=== PATIENT | male | born 1950 | race Caucasian/White ===

== ENCOUNTER 2020-03-25 11:17 | Outpatient (CLI) | payer MEDICARE, SELFPAY ==
[2020-03-25 11:41] LABS: Basophils Absolute Auto 0.1 K/mm3 (0.0-0.1); Basophils Percent Auto 1.4 % (0.2-1.2); Eosinophils Absolute Auto 0.4 K/mm3 (0-0.3); Eosinophils Percent Auto 8.9 % (0-4.4); Hematocrit 43.7 % (42.0-52.0); Hemoglobin 14.6 g/dL (14.0-18.0); Immature Granulocyte Absolute 0.02 K/mm3 (0.00-0.031); Immature Granulocyte Percent A 0.4 % (0-0.5); Lymphocytes Absolute Auto 1.96 K/mm3 (0.9-3.2); Lymphocytes Percent Auto 39.8 % (18.3-44.2); Mean Corpuscular HGB Conc 33.4 g/dl (32-36); Mean Corpuscular Volume 98.6 fl (80-100); Mean Platelet Volume 10.2 fl (7.4-10.4); Monocytes Absolute Auto 0.5 K/mm3 (0.1-0.6); Neutrophils Absolute Auto 1.9 K/mm3 (1.3-6.7); Neutrophils Percent Auto 38.5 % (45.5-73.1); Platelet Count Result 342 k/mm3 (150-375); Red Blood Count 4.43 M/mm3 (4.6-6.20); Red Cell Distribution Width 12.7 % (11.5-14.5); White Blood Count 4.9 K/mm3 (4.5-10.0)
[2020-03-25 12:39] LABS: Alanine Aminotransferase 28 U/L (4-50); Alkaline Phosphatase 57 U/L (38-126); Anion Gap 7 mmol/L (8-16); Aspartate Amino Transferase 34 U/L (17-59); Bilirubin,Total 0.4 mg/dL (0.2-1.3); Blood Urea Nitrogen 14 mg/dL (9-20); Calcium 9.9 mg/dL (8.4-10.2); Carbon Dioxide 30 mmol/L (22-30); Chloride 103 mmol/L (98-107); Estimated Glomerular Filt Rate 60; Glucose 119 mg/dL (75-110); Potassium 4.3 mmol/L (3.4-5.0); Sodium 140 mmol/L (137-145)
== END 2020-03-25 11:18 | disposition home or self-care (01) ==
PROVIDERS: PCP Family Medicine; Visit Provider Nurse Practitioner Family
DX: I10 Essential (primary) hypertension (principal); E78.2 Mixed hyperlipidemia
CPT/HCPCS: 36415; 80053; 85025

== ENCOUNTER 2020-06-24 10:08 | Outpatient (CLI) | payer MEDICARE, SELFPAY ==
--- NOTE | 2020-06-24 10:41 | ECG_ITS ---
Measurements Intervals [place] Rate: 70 P: 69 SC: 189 QRS: 82 QRSD: 93 T: 50 QT: 388 QTc: 419 Interpretive Statements SINUS RHYTHM BASELINE WANDER- AVF, V3 NORMAL ECG Electronically Signed On 06-24-2020 10:57:52 OPHTHALMIC TECHNOLOGIST by Shamar Freire D.O.
[2020-06-24 10:49] LABS: INR 2.2; Prothrombin Time 24.9 Seconds (11.1-14.7)
[2020-06-24 11:04] LABS: Anion Gap 5 mmol/L (8-16); Blood Urea Nitrogen 16 mg/dL (9-20); Calcium 9.7 mg/dL (8.4-10.2); Carbon Dioxide 34 mmol/L (22-30); Chloride 103 mmol/L (98-107); Estimated Glomerular Filt Rate 60; Glucose 136 mg/dL (75-110); Potassium 4.3 mmol/L (3.4-5.0); Sodium 142 mmol/L (137-145)
== END 2020-06-24 10:09 | disposition home or self-care (01) ==
PROVIDERS: PCP Family Medicine; Visit Provider Nurse Practitioner Family
DX: R07.9 Chest pain, unspecified (principal); Z79.01 Long term (current) use of anticoagulants
CPT/HCPCS: 36415; 80048; 85610; 93005

== ENCOUNTER 2020-07-26 08:00 | Outpatient (CLI) | payer MEDICARE, SELFPAY ==
--- NOTE | 2020-07-26 08:28 | EST_ITS ---
Patient Info Name: Roscoe Pérez Age: 70 years : 1950 Gender: Male Ht: 73 in Wt: 245 lbs BSA: 2.42 m2 Exam Date: 07/26/2020 8:34 AM Exam Location: [facility] Stress Patient Status: Outpatient Admit Date: 07/26/2020 Staff Ordering Physician: Laxmi Anne NP Attending Provider: Laxmi nAne NP Exercise Technologist: Carri Sequeira RDCS Exercise Physician: Shamar Freire DO Exam Type: CA stress test treadmill Study Info Indications R07.9 - Chest pain, unspecified A exercise treadmill stress test was performed. Summary 1. 1. Negative Mark exercise stress test for ischemic ST changes by ECG criteria. 2. 2. Reduced functional capacity, achieving 6 METs of workload. 3. 3. Baseline hypertension with hypertensive response to exercise. 4. 4. Appropriate HR response to exercise. 5. 5. Appropriate HR recovery at 1 minute post exercise. 6. 6. No imaging with stress testing. 7. 7. Patient informed of the above results. Protocol: Mark Stress ECG Details Stage: REST Duration (min): 8 min : 34 sec Speed (mph): 0.0 Grade (%): 0 HR (bpm): 74 SBP (mmHg): 157 DBP (mmHg): 72 METS: --- Stage: REST Duration (min): 13 min : 49 sec Speed (mph): 0.0 Grade (%): 0 HR (bpm): 77 SBP (mmHg): 157 DBP (mmHg): 72 METS: --- Stage: STAGE 1 Duration (min): 1 min : 0 sec Speed (mph): 1.7 Grade (%): 10 HR (bpm): 103 SBP (mmHg): 157 DBP (mmHg): 72 METS: --- Stage: STAGE 1 Duration (min): 2 min : 0 sec Speed (mph): 1.7 Grade (%): 10 HR (bpm): 112 SBP (mmHg): 157 DBP (mmHg): 72 METS: --- Stage: STAGE 1 Duration (min): 3 min : 0 sec Speed (mph): 1.7 Grade (%): 10 HR (bpm): 119 SBP (mmHg): 188 DBP (mmHg): 70 METS: --- Stage: STAGE 2 Duration (min): 1 min : 0 sec Speed (mph): 2.5 Grade (%): 12 HR (bpm): 131 SBP (mmHg): 188 DBP (mmHg): 70 METS: --- Stage: STAGE 2 Duration (min): 1 min : 0 sec Speed (mph): 2.5 Grade (%): 12 HR (bpm): 131 SBP (mmHg): 188 DBP (mmHg): 70 METS: --- Stage: RECOVERY Duration (min): 0 min : 59 sec Speed (mph): 0.0 Grade (%): 0 HR (bpm): 117 SBP (mmHg): 229 DBP (mmHg): 75 METS: --- Stage: RECOVERY Duration (min): 1 min : 59 sec Speed (mph): 0.0 Grade (%): 0 HR (bpm): 92 SBP (mmHg): 229 DBP (mmHg): 75 METS: --- Stage: RECOVERY Duration (min): 2 min : 59 sec Speed (mph): 0.0 Grade (%): 0 HR (bpm): 79 SBP (mmHg): 209 DBP (mmHg): 75 METS: --- Stage: RECOVERY Duration (min): 3 min : 59 sec Speed (mph): 0.0 Grade (%): 0 HR (bpm): 87 SBP (mmHg): 209 DBP (mmHg): 75 METS: --- Stage: RECOVERY Duration (min): 4 min : 59 sec Speed (mph): 0.0 Grade (%): 0 HR (bpm): 80 SBP (mmHg): 209 DBP (mmHg): 75 METS: ---
--- NOTE | 2020-07-26 08:28 | ECHO_ITS ---
Patient Info Name: Roscoe Pérez Age: 70 years : 1950 Gender: Male Ht: 73 in Wt: 245 lbs BSA: 2.42 m2 HR: 82 bpm BP: 157 / 88 mmHg Heart Rhythm: Sinus Rhythm Exam Date: 07/26/2020 9:17 AM Exam Location: [facility] Pulmonary Patient Status: Outpatient Admit Date: 07/26/2020 Staff Ordering Physician: Laxmi Anne NP Devops Engineer: Rose Molina RDCS Attending Provider: Laxmi Anne NP Referring Physician: Omid PARSONS; Exam Type: CA echo doppler color flow Study Info Indications R07.9 - Chest pain, unspecified Complete two-dimensional, color flow and Doppler transthoracic echocardiogram is performed. Summary 1. Complete two-dimensional, color flow and Doppler transthoracic echocardiogram is performed. 2. Left ventricular chamber dimension is normal. 3. Left ventricular systolic function is normal, estimated at 55-60%. 4. There is mildly increased left ventricular wall thickness. 5. The left ventricular diastolic function is grade I diastolic dysfunction. 6. E/e' 15 is elevated. 7. There is mild aortic valve sclerosis. 8. There is trace mitral valve regurgitation. Left Ventricle E/e' 15 is elevated. Left ventricular chamber dimension is normal. Left ventricular systolic function is normal, estimated at 55-60%. There is mildly increased left ventricular wall thickness. The left ventricular diastolic function is grade I diastolic dysfunction. Right Ventricle Right ventricular chamber dimension is normal. Right ventricular systolic function is normal. Left Atria Left atrial chamber dimension is normal. Right Atria Right atrial chamber dimension is normal. Aortic Valve The aortic valve is trileaflet. There is mild aortic valve sclerosis. There is no aortic valve stenosis. There is no aortic valve regurgitation. Pulmonic Valve There is no pulmonic regurgitation. Mitral Valve There is no mitral valve stenosis. There is trace mitral valve regurgitation. Tricuspid Valve There is no tricuspid valve regurgitation. Pericardium/Pleural There is no pericardial effusion. Inferior Vena Cava Normal inferior vena cava with >50% collapse upon inspiration consistent with normal right atrial pressure, 5 mmHg. Aorta The aortic root size at the sinus of Valsalva is normal. Left Ventricular Outflow Tract Name Value Normal LVOT 2D LVOT Diameter 2.1 cm LVOT Doppler LVOT Peak Gradient 2 mmHg LVOT Mean Gradient 1 mmHg LVOT VTI 17 cm LVOT VTI/AV VTI Ratio 0.6 LVOT Stroke Volume 60 ml LVOT CO 10.9 l/min LVOT CI 4.5 l/min/m2 Pulmonic Valve Name Value Normal RVOT Doppler RVOT Peak Gradient
--- NOTE | 2020-07-30 15:12 | WPDHOLTEREM ---
Holter/Event Monitor Holter/Event Monitor Date of procedure: 07/26/20 Procedure Type: 24 hour holter monitor Indications: Chest pain Conclusion: 1. 24 hour holter monitor on 07/26/20. 2. Underlying rhythm is sinus rhythm. HR range 61-115 bpm; average HR 82 bpm. 3. There are 26 premature supraventricular complexes. No supraventricular tachycardia. 4. There are 490 premature ventricular complexes. No ventricular tachycardia. 5. No sinoatrial or atrioventricular blocks. No significant pauses greater than 2 seconds. 6. No symptoms available for correlation.
== END 2020-07-26 08:01 | disposition home or self-care (01) ==
LOC: ANHCARD 08:04
PROVIDERS: PCP Family Medicine; Visit Provider Nurse Practitioner Family
DX: E11.9 Type 2 diabetes mellitus without complications (principal); G47.33 Obstructive sleep apnea (adult) (pediatric); I65.22 Occlusion and stenosis of left carotid artery; R07.9 Chest pain, unspecified; R42 Dizziness and giddiness
CPT/HCPCS: 93017; 93225; 93226; 93306

== ENCOUNTER 2020-09-16 09:17 | Outpatient (CLI) | payer MEDICARE, SELFPAY ==
[2020-09-16 10:03] LABS: Cholesterol 135 mg/dL (0-200); HDL Direct 50 mg/dL; Triglycerides 181 mg/dL (<150)
[2020-09-16 10:14] LABS: LDL Cholesterol Direct 59 mg/dL
== END 2020-09-16 09:18 | disposition home or self-care (01) ==
PROVIDERS: PCP Family Medicine; Visit Provider Internal Medicine Cardiovascular Disease
DX: E78.2 Mixed hyperlipidemia (principal)
CPT/HCPCS: 36415; 80061

== ENCOUNTER → 2020-09-30 01:21 | Outpatient (CLI) | payer MEDICARE, SELFPAY ==
[2020-09-30 18:48] LABS: SARS-CoV-2 RNA PCR Negative
== END ==
PROVIDERS: PCP Family Medicine; Visit Provider Internal Medicine Critical Care Medicine
DX: Z01.812 Encounter for preprocedural laboratory examination (principal); Z20.822 Contact with and (suspected) exposure to COVID-19
CPT/HCPCS: C9803; U0003; U0005

== ENCOUNTER 2020-10-02 08:08 | Outpatient (CLI) | payer MEDICARE, SELFPAY ==
--- NOTE | 2020-10-16 11:55 | WPDSLEEPSTUD ---
Sleep Study Date of Study: 10/02/20 Ordering Provider: Larry Morel MD Interpreting Physician: Tessa Fuchs MD Sleep Study Type: Polysomnogram Height: 1.85 m Weight: 109.769 kg Body Mass Index: 31.9 Neck Circumference (inches): 19 [place]: 7 Reason for Sleep Study Obstructive sleep apnea; his eye surgeon recommended possible adjustment to his CPAP The exact issue is not known Sleep History Roscoe proctor is a 70-year-old man currently using CPAP. This will be is 3rd sleep study and 16 years. His last study was at [facility]. He returns for further evaluation. He occasionally awakens from sleep feeling short of breath. He does not awaken at night with heartburn, belching or coughing. He constantly snores and it is constantly loud enough for others to complain, only when he is not using CPAP. He does not have trouble sleep with a cold. He does not wake up gasping for breath at night. He occasionally has breathing problems at night observed by others. He frequently sweats excessively at night. He rarely notices his heart beating or pounding irregularly night. He frequently falls asleep during the day, never involuntarily, and he never falls asleep while driving. He does not have loss of muscle tone with strong emotion. He does not have daytime difficulties due to excessive sleepiness. 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 He does not feel paralyzed on waking or falling asleep. He occasionally has vivid dreamlike scenes upon awakening or falling asleep. He never has nightmares. He occasionally remembers his dreams and occasionally has racing thoughts. He does not feel sad or depressed. He does not have anxiety. He does not have muscular tension or notice parts of his body jerking. He does not kick at night. He frequently has crawling and aching feelings in his legs and frequently has leg pain at night. He does not have morning jaw pain and does not grind his teeth during sleep. He is not awakened by pain during the night. He constantly wakes up feeling stiff in the morning. He frequently wakes up with sore or achy muscles and pain in the neck and spine. He has fatigue and sexual problems. Normal bedtime is 9:00 p.m. taking 10-15 minutes to fall asleep, typically waking 3 4 times at night for less than 5 minutes to urinate. These awakenings occur in the middle of the night and in the machine plug shaper hours. His wake time is 5:30 a.m.. He keeps the same schedule on weekends. He estimates getting 6-8 hours of sleep at night. He takes naps in the day. A short nap can be refreshing. Most of the time he feels good in the morning. Habits: (+) tobacco. No caffeine. Alcohol on weekends 3-4 drinks. No recreational drugs. [facility] Past Medical History Medical History (Updated 10/16/20 @ 12:21 by Tessa Fuchs MD) BMI 31.0-31.9,adult BMI 32.0-32.9,adult Essential hypertension Fever Gastroesophageal reflux disease without esophagitis History of DVT in adulthood Hyperlipidemia Hypothyroidism Left carotid artery occlusion Nephrolithiasis Obstructive sleep apnea Type 2 diabetes mellitus without complication, without long-term current use of insulin Surgical History Surgical History (Updated 10/16/20 @ 12:22 by Tessa Fuchs MD) Status post hip replacement Left side Status post placement of ureteral stent Right side Family History Family History Sibling No problems noted. Father Cancer Mother No problems noted. Sibling No problems noted. Other Diabetes mellitus Social History Social History Tobacco type: cigarettes Alcohol intake: current Substance use: never Substance use type: does not use Additional occupation/education comments: [employer]. Gender identity (if verbalized by the patient): Male
[2020-10-16 12:27] VITALS: BMI 31.9
== END 2020-10-03 05:53 | disposition home or self-care (01) ==
LOC: ANHCSM 08:09
PROVIDERS: PCP Family Medicine; Visit Provider Family Medicine
DX: G47.33 Obstructive sleep apnea (adult) (pediatric) (principal)
CPT/HCPCS: 95810

== ENCOUNTER 2021-02-03 14:46 | Emergency (ER) | payer MEDICARE, SELFPAY ==
--- NOTE | ~2021-02-03 | XR_ITS ---
EXAMINATION: XR hip LT min 2V EXAM DATE: 02/03/2021 15:11 INDICATION: Fall 4 days ago. Left hip pain . Initial encounter. TECHNIQUE: Left hip frontal, crosstable lateral and 'frog-leg' projections for interpretation. Compar elizabeth is made to prior examination from 12/18/2014. FINDINGS: There is left hip arthroplasty hardware intact. There are no acute fractures identified. IMPRESSION: Intact left hip arthroplasty. No acute findings. Reviewed, dictated and finalized at location B.
[2021-02-03 14:58] VITALS: BP 168/77; PULSE 75; RESP 16; TEMP 36.6; O2SAT 97
--- NOTE | 2021-02-03 15:18 | ED.LOWEXIN ---
HPI - Extremity Injury (Lower) General Chief Complaint: Extremity Injury, Lower Stated Complaint: lt hip injury Source: patient and RN notes reviewed Limitations: no limitations History of Present Illness HPI Narrative: The overweight patient, on several meds including for insulin diabetes, presents with hip discomfort. Patient states he has had a prior hip replacement, he slipped and fell striking his left hip about half week ago. He complains of mild pain is worse with motion, better at rest, located at the greater trochanter area. He is on warfarin and denies bleeding, bruising, deformity. Related Data Home Medications Medication Instructions Recorded Confirmed insulin glargine 100 unit/mL (3 45 unit SUB-Q DAILY ml 05/28/19 02/03/21 mL) subcutaneous pen levothyroxine 175 mcg tablet 175 mcg PO DAILY 05/28/19 02/03/21 metformin 500 mg tablet,extended 1,000 mg PO BID tablet 05/28/19 02/03/21 release 24hr insulin lispro 100 unit/mL 1 unit SUB-Q ONCE 05/29/19 02/03/21 subcutaneous pen tramadol 50 mg tablet 50 mg PO Q6H PRN 10/25/19 02/03/21 insulin lispro 100 unit/mL See Rx Instructions SUBCUT ONCE 03/25/20 02/03/21 subcutaneous pen mecobalamin (vitamin B12) 1,000 1,000 mcg SUBLINGUAL DAILY 09/16/20 02/03/21 mcg disintegrating tablet,sublingual Allergies Allergy/AdvReac Type Severity Reaction Status Date / Time No Known Allergies Allergy Verified 02/03/21 15:10 Review of Systems Review of Systems: General/Constitutional: No weight loss,fever Eyes: N0: Redness,discharge Ears/Nose/Throat: No: Epistaxis,ear discharge Respiratory: Denies: Hemoptysis Gastrointestinal: No Vomiting, Bleeding-rectal Skin: No Lumps, eruption Neurologic: No Focal Weakness,Sz Hematologic: Denies: Petechiae/Purpura Psychiatric: No: Suicida ideationl All Other Systems: Reviewed and Negative [facility] Past Medical History Medical History (Updated 02/03/21 @ 18:32 by Suresh Rubalcava MD) BMI 31.0-31.9,adult BMI 32.0-32.9,adult Essential hypertension Fever Gastroesophageal reflux disease without esophagitis History of DVT in adulthood Hyperlipidemia Hypothyroidism Left carotid artery occlusion Nephrolithiasis Obstructive sleep apnea Type 2 diabetes mellitus without complication, without long-term current use of insulin Surgical History Surgical History (Updated 10/16/20 @ 12:22 by Tessa Fuchs MD) Status post hip replacement Left side Status post placement of ureteral stent Right side Family History Family History (Reviewed 09/16/20 @ 08:34 by Cindy Dailey [facility] [address]) Sibling No problems noted. Father Cancer Mother No problems noted. Sibling No problems noted. Other Diabetes mellitus Social History Social History (Reviewed 09/16/20 @ 08:34 by Cindy Dailey [facility]) Tobacco type: cigarettes Alcohol intake: current Substance use: never Substance use type: does not use Additional occupation/education comments: [employer]. Gender identity (if verbalized by the patient): Male Comments At time of signature, agree with nursing past medical, surgical, social and family history. There is no relevant family history pertinent to the presenting complaint Exam Narrative: General Appearance: Well appearing,, Conjunctiva clear Mouth/Throat: Normal appearing, Normal lips,: Supple Respiratory: Airway patent, No respiratory distress MS-hip: Normal strength (mostly intact, limited flexion/extension by pain), Tenderness (greater trochanter, with mild decreased ROM), no swelling Skin: Warm, Dry, Normal color Neurological: A&O x3, Speech clear, CN II-XII intact Psychiatric: Normal mood, Normal affect Course Course Emergency Course: Films visualized, interpreted by radiologist, agree, normal see report Vital Signs Vital signs: Vital Signs Temperature 98 F 02/03/21 14:58 Pulse Rate 75 02/03/21 14:58 Respiratory
== END 2021-02-03 16:03 | disposition home or self-care (01) ==
PROVIDERS: Emergency Provider Emergency Medicine; PCP Family Medicine
DX: S70.02XA Contusion of left hip, initial encounter (principal); M70.72 Other bursitis of hip, left hip; E11.9 Type 2 diabetes mellitus without complications; I10 Essential (primary) hypertension; E03.9 Hypothyroidism, unspecified; E78.5 Hyperlipidemia, unspecified; Z79.4 Long term (current) use of insulin; W01.0XXA Fall on same level from slipping, tripping and stumbling without subsequent striking against object, initial encounter
CPT/HCPCS: 73502; 99213; G0463

== ENCOUNTER → 2021-02-08 08:14 | Outpatient (CLI) | payer MEDICARE, SELFPAY ==
[2021-02-08 18:04] LABS: SARS-CoV-2 RNA PCR Positive
== END ==
PROVIDERS: PCP Family Medicine; Visit Provider Nurse Practitioner Family
DX: U07.1 COVID-19 (principal)
CPT/HCPCS: C9803; U0003; U0005

== ENCOUNTER 2021-02-08 13:01 | Emergency (ER) | payer MEDICARE, SELFPAY ==
--- NOTE | ~2021-02-08 | XR_ITS ---
EXAMINATION: XR chest 1V portable EXAM DATE: 02/08/2021 14:48 INDICATION: Dyspnea, low oxygen saturation. TECHNIQUE: Portable AP frontal chest x-ray was obtained. Comparison is made to prior examination from 03/16/2019. FINDINGS: There are small regions of bilateral ill-defined airspace disease which are new compared to previous examination, could be COVID pneumonia or other acute infectious process. No pneumothorax or pleural effusion. The cardiomediastinal silhouette is prominent but magnified on this AP technique. Patient has diffuse idiopathic skeletal hyperostosis (DISH). IMPRESSION: Small regions ill-defined bilateral airspace disease suspicious for pneumonia. Reviewed, dictated and finalized at location A.
[2021-02-08 13:08] VITALS: BP 168/100; PULSE 102; RESP 19; TEMP 36.4; O2SAT 92
--- NOTE | 2021-02-08 13:12 | ECG_ITS ---
Measurements Intervals [place] Rate: 72 P: 62 MT: 170 QRS: 73 QRSD: 93 T: 44 QT: 366 QTc: 403 Interpretive Statements SINUS RHYTHM NORMAL ECG Electronically Signed On 02-08-2021 18:41:50 CDT by Shamar Freire D.O.
[2021-02-08 13:41] LABS: Basophils Percent Auto 0.1 % (0.2-1.2); Eosinophils Absolute Auto 0.2 K/mm3 (0-0.3); Eosinophils Percent Auto 2.2 % (0-4.4); Hematocrit 47.9 % (42.0-52.0); Hemoglobin 16.3 g/dL (14.0-18.0); Immature Granulocyte Absolute 0.03 K/mm3 (0.00-0.031); Immature Granulocyte Percent A 0.4 % (0-0.5); Lymphocytes Absolute Auto 1.29 K/mm3 (0.9-3.2); Lymphocytes Percent Auto 19.1 % (18.3-44.2); Mean Corpuscular Hemoglobin 33.9 pg (26-34); Mean Corpuscular Volume 99.6 fl (80-100); Mean Platelet Volume 11.5 fl (7.4-10.4); Monocytes Absolute Auto 0.4 K/mm3 (0.1-0.6); Monocytes Percent Auto 5.2 % (2.6-8.5); Neutrophils Absolute Auto 4.9 K/mm3 (1.3-6.7); Platelet Count Result 217 k/mm3 (150-375); Red Blood Count 4.81 M/mm3 (4.6-6.20); Red Cell Distribution Width 13.1 % (11.5-14.5); White Blood Count 6.8 K/mm3 (4.5-10.0)
[2021-02-08 13:50] LABS: Anion Gap 13 mmol/L (8-16); Blood Urea Nitrogen 19 mg/dL (9-20); Calcium 10.7 mg/dL (8.4-10.2); Carbon Dioxide 23 mmol/L (22-30); Chloride 99 mmol/L (98-107); Estimated CRCL calculation 71 ml/min; Estimated Glomerular Filt Rate > 60; Glucose 400 mg/dL (65-110); Potassium 4.2 mmol/L (3.4-5.0); Sodium 135 mmol/L (137-145)
--- NOTE | 2021-02-08 14:56 | ED.URI ---
HPI - URI/Sore Throat General Chief Complaint: Upper Respiratory Infection Stated Complaint: sob, diarrhea Time Seen by Provider: 02/08/21 14:25 Source: patient Mode of arrival: ambulatory Limitations: no limitations History of Present Illness HPI Narrative: Patient is a 70-year-old male complaining of cough, nonproductive, shortness of breath, body aches and diarrhea that started yesterday. Patient states that he was exposed to someone that tested positive for Covid this past week. Patient states that he is fully vaccinated. Patient denies any chest pain, Eric pain, nausea, vomiting, fever or chills Related Data Home Medications Medication Instructions Recorded Confirmed insulin glargine 100 unit/mL (3 45 unit SUB-Q DAILY ml 05/28/19 02/03/21 mL) subcutaneous pen levothyroxine 175 mcg tablet 175 mcg PO DAILY 05/28/19 02/03/21 metformin 500 mg tablet,extended 1,000 mg PO BID tablet 05/28/19 02/03/21 release 24hr insulin lispro 100 unit/mL 1 unit SUB-Q ONCE 05/29/19 02/03/21 subcutaneous pen tramadol 50 mg tablet 50 mg PO Q6H PRN 10/25/19 02/03/21 insulin lispro 100 unit/mL See Rx Instructions SUBCUT ONCE 03/25/20 02/03/21 subcutaneous pen mecobalamin (vitamin B12) 1,000 1,000 mcg SUBLINGUAL DAILY 09/16/20 02/03/21 mcg disintegrating tablet,sublingual Allergies Allergy/AdvReac Type Severity Reaction Status Date / Time No Known Allergies Allergy Verified 02/08/21 13:11 Review of Systems Review of Systems: All systems reviewed & are unremarkable except as noted in HPI and below Constitutional: Constitutional: Denies chills, Denies excessive sweating, Denies fatigue, Denies fever(s), Denies headache(s), Denies lethargy, Denies malaise, Denies weakness and Denies weight loss Eyes: Eyes: Denies blurry vision, Denies change in vision and Denies loss of vision ENT: Denies dizziness, Denies ear discharge, Denies headache(s), Denies lip swelling, Denies epistaxis, Denies nasal congestion, Denies neck pain, Denies throat swelling and Denies tongue swelling Cardiovascular: Cardiovascular: Denies chest pain, Denies chest pain at rest, Denies chest pain with activity, Denies diaphoresis, Denies rapid heart rate, Denies edema, Denies irregular heart rhythm, Denies lightheadedness and Denies palpitations Respiratory: Respiratory: Denies chest congestion and Denies hemoptysis Gastrointestinal: Gastrointestinal: Denies abdominal pain, Denies melena, Denies hematochezia, Denies nausea, Denies vomiting and Denies hematemesis Musculoskeletal: Musculoskeletal: Denies abnormal gait, Denies deformity, Denies joint swelling, Denies limited range of motion, Denies neck pain and Denies numbness Neurologic: Denies Abnormal speech present, Denies abnormal gait, Denies confusion, Denies dizziness, Denies headache(s), Denies focal weakness, Denies loss of vision, Denies numbness, Denies Other visual disturbances, Denies Sensory deficit (Neuro) and Denies weakness Psychiatric: Psychiatric: Denies confusion, Denies depression, Denies auditory hallucinations, Denies homicidal ideation and Denies suicidal ideation Endocrine: Endocrine: Denies cold intolerance, Denies excessive sweating, Denies fatigue, Denies heat intolerance and Denies palpitations Hematologic/Lymphatic: Hematologic/Lymphatic: Denies easy bleeding and Denies easy bruising Allergic/Immunologic: Allergic/Immunologic: Denies lip swelling, Denies throat swelling and Denies tongue swelling PMFSH Past Medical History Medical History BMI 31.0-31.9,adult BMI 32.0-32.9,adult Essential hypertension Fever Gastroesophageal reflux disease without esophagitis History of DVT in adulthood Hyperlipidemia Hypothyroidism Left carotid artery occlusion Nephrolithiasis Obstructive sleep apnea Type 2 diabetes mellitus without complication, without long-term current use of insulin Surgical History Surgical History (Reviewed
[2021-02-08 15:13] VITALS: BP 133/78; PULSE 73; RESP 18; O2SAT 95
[2021-02-08] MEDS: LACTATED RINGERS 1,000 ML 999 ML IV CONT (15:14)
[2021-02-08] MEDS: DEXAMETHASONE SOD PHOS INJ 4 MG/ML VIAL 10 MG IV PUSH (15:15)
[2021-02-08 15:51] LABS: D Dimer 0.37 ug/mL (<0.48)
[2021-02-08] MEDS: INSULIN HUMAN REGULAR (*BKC) 100 UNITS/ML 8 UNITS IV PUSH (17:28)
[2021-02-08 19:32] LABS: Glucose Point of Care 389 mg/dl (65-105)
[2021-02-08 19:48] VITALS: BP 137/80; PULSE 77; RESP 18; O2SAT 97
[2021-02-10 17:27] LABS: SARS-CoV-2 RNA PCR Positive
== END 2021-02-08 19:50 | disposition home or self-care (01) ==
PROVIDERS: Emergency Medicine; Emergency Provider Emergency Medicine; PCP Family Medicine
DX: U07.1 COVID-19 (principal); J12.82 Pneumonia due to coronavirus disease 2019; E11.65 Type 2 diabetes mellitus with hyperglycemia; I10 Essential (primary) hypertension; E78.5 Hyperlipidemia, unspecified; E03.9 Hypothyroidism, unspecified; I65.22 Occlusion and stenosis of left carotid artery; K21.9 Gastro-esophageal reflux disease without esophagitis; G47.33 Obstructive sleep apnea (adult) (pediatric); Z87.442 Personal history of urinary calculi; Z86.718 Personal history of other venous thrombosis and embolism; Z79.4 Long term (current) use of insulin; Z96.642 Presence of left artificial hip joint; F17.210 Nicotine dependence, cigarettes, uncomplicated
CPT/HCPCS: 36415; 71045; 80048; 82948; 85025; 85380; 93005; 96365; 96367; 96375; 99284; C9803; J0456; J0696; J1100; J1815; J7120; U0003; U0005

== ENCOUNTER 2021-02-11 09:58 | Inpatient (IN) | payer MEDICARE, SELFPAY ==
[2021-02-11] VITALS (8 sets, daily range): BP systolic 142–182; BP diastolic 76–101; PULSE 82–103; RESP 16–30; TEMP 36.3–37.2; O2SAT 92–99; BMI 30.7
--- NOTE | ~2021-02-11 | XR_ITS ---
EXAMINATION: XR chest 1V portable EXAM DATE: 02/11/2021 11:19 INDICATION: Shortness of breath, cough. Weakness. Hypertension. TECHNIQUE: Frontal and lateral projections of the chest obtained and reviewed. Comparison is made to prior examination from 02/08/2021. FINDINGS: There is been progression in previously seen small regions of ill-defined airspace disease . Now moderate amount of bilateral airspace disease, differential diagnosis including COVID pneumonia , pneumonia from other etiology, edema. No pneumothorax or pleural effusion. The cardiomediastinal si lhouette is prominent but magnified on this AP technique. Mild degenerative IMPRESSION: Progression of now moderate bilateral acute airspace disease. Consider pneumonia, COVID, edema. Reviewed, dictated and finalized at location A. IMPRESSION: Progression of now moderate bilateral acute airspace disease. Consi francis pneumonia, COVID, edema.
--- NOTE | 2021-02-11 10:20 | ECG_ITS ---
Measurements Intervals [place] Rate: 99 P: 73 NH: 147 QRS: 81 QRSD: 89 T: 42 QT: 341 QTc: 439 Interpretive Statements SINUS RHYTHM BASELINE ARTIFACT- I, II, III, AVR, AVL, AVF NORMAL ECG Electronically Signed On 02-11-2021 12:15:43 CDT by Shamar Freire D.O.
--- NOTE | 2021-02-11 10:25 | ED.GENADULT ---
HPI - General Adult General Chief complaint: Shortness of Breath/Dyspnea <PAYTON Villalpando Last Filed: 02/11/21 13:15> Stated complaint: SOB/COVID + 02/06/21 <PAYTON Villalpando Last Filed: 02/11/21 13:15> Time Seen by Provider: 02/11/21 10:05 <PAYTON Villalpando Last Filed: 02/11/21 13:15> Source: patient <PAYTON Villalpando Last Filed: 02/11/21 13:15> Mode of arrival: ambulatory <PAYTON Villalpando Last Filed: 02/11/21 13:15> Limitations: no limitations <PAYTON Villalpando Last Filed: 02/11/21 13:15> History of Present Illness HPI narrative: Presents with Covid positive diagnosis with shortness of breath that began patient is fully vaccinated patient notes no pain at this time has had progressively worsening shortness of breath patient denies vomiting or diarrhea. . On arrival patient was found to be hypoxic on room air got as low as 90. Patient does not wear oxygen at home <PAYTON Villalpando Last Filed: 02/11/21 13:15> Related Data Home medications: Home Medications Medication Instructions Recorded Confirmed insulin glargine 100 unit/mL (3 45 unit SUB-Q DAILY ml 05/28/19 02/03/21 mL) subcutaneous pen levothyroxine 175 mcg tablet 175 mcg PO DAILY 05/28/19 02/03/21 metformin 500 mg tablet,extended 1,000 mg PO BID tablet 05/28/19 02/03/21 release 24hr insulin lispro 100 unit/mL 1 unit SUB-Q ONCE 05/29/19 02/03/21 subcutaneous pen tramadol 50 mg tablet 50 mg PO Q6H PRN 10/25/19 02/03/21 insulin lispro 100 unit/mL See Rx Instructions SUBCUT ONCE 03/25/20 02/03/21 subcutaneous pen mecobalamin (vitamin B12) 1,000 1,000 mcg SUBLINGUAL DAILY 09/16/20 02/03/21 mcg disintegrating tablet,sublingual <PAYTON Villalpando Last Filed: 02/11/21 13:15> Allergies/adverse reactions: Allergies Allergy/AdvReac Type Severity Reaction Status Date / Time No Known Allergies Allergy Verified 02/11/21 10:16 <Kunal Roy PA-C - Last Filed: 02/11/21 13:15> Review of Systems Review of Systems: All systems reviewed & are unremarkable except as noted in HPI and below <Kunal Roy PA-C - Last Filed: 02/11/21 13:15> PMFSH Past Medical History Medical History: Medical History BMI 31.0-31.9,adult BMI 32.0-32.9,adult Essential hypertension Fever Gastroesophageal reflux disease without esophagitis History of DVT in adulthood Hyperlipidemia Hypothyroidism Left carotid artery occlusion Nephrolithiasis Obstructive sleep apnea Type 2 diabetes mellitus without complication, without long-term current use of insulin <Kunal Roy PA-C - Last Filed: 02/11/21 13:15> Surgical History Surgical History: Surgical History Status post hip replacement Left side Status post placement of ureteral stent Right side <Kunal Roy PA-C - Last Filed: 02/11/21 13:15> Family History Family History: Family History Sibling No problems noted. Father Cancer Mother No problems noted. Sibling No problems noted. Other Diabetes mellitus <Kunal Roy PA-C - Last Filed: 02/11/21 13:15> Social History Social History: Social History Tobacco type: cigarettes Alcohol intake: current Substance use: never Substance use type: does not use Additional occupation/education comments: [employer]. Gender identity (if verbalized by the patient): Male <Kunal Roy PA-C - Last Filed: 02/11/21 13:15> Exam Narrative: GENERAL: Ill-appearing, well-nourished, and in no acute distress. HEAD: Normocephalic, atraumatic. EYES: PERRLA and EOMI. ENT: Nares clear, no rhinorrhea or epistaxis. Mucous membr
[2021-02-11 10:38] LABS: Basophils Percent Auto 0.5 % (0.2-1.2); Eosinophils Absolute Auto 0.1 K/mm3 (0-0.3); Eosinophils Percent Auto 1.4 % (0-4.4); Hemoglobin 16.4 g/dL (14.0-18.0); Immature Granulocyte Absolute 0.07 K/mm3 (0.00-0.031); Immature Granulocyte Percent A 0.8 % (0-0.5); Lymphocytes Absolute Auto 1.01 K/mm3 (0.9-3.2); Lymphocytes Percent Auto 11.9 % (18.3-44.2); Mean Corpuscular HGB Conc 34.9 g/dl (32-36); Mean Corpuscular Hemoglobin 33.1 pg (26-34); Mean Corpuscular Volume 94.9 fl (80-100); Monocytes Absolute Auto 0.8 K/mm3 (0.1-0.6); Monocytes Percent Auto 9.7 % (2.6-8.5); Neutrophils Absolute Auto 6.4 K/mm3 (1.3-6.7); Neutrophils Percent Auto 75.7 % (45.5-73.1); Platelet Count Result 298 k/mm3 (150-375); Red Blood Count 4.95 M/mm3 (4.6-6.20); Red Cell Distribution Width 12.8 % (11.5-14.5); White Blood Count 8.5 K/mm3 (4.5-10.0)
--- NOTE | 2021-02-11 10:39 | PC.NURSE ---
Per CORTEZ Sahu, hold Decadron until patient's blood sugar is resulted.
[2021-02-11 10:47] LABS: INR 1.6; Prothrombin Time 18.3 Seconds (11.1-14.7)
[2021-02-11 10:48] LABS: Partial Thromboplastin Time 34.8 SECONDS (22.3-36.8)
[2021-02-11 10:50] LABS: Alanine Aminotransferase 22 U/L (4-50); Albumin Level 4.2 g/dL (3.5-5.1); Alkaline Phosphatase 63 U/L (38-126); Anion Gap 11 mmol/L (8-16); Aspartate Amino Transferase 24 U/L (17-59); Bilirubin,Total 0.9 mg/dL (0.2-1.3); Blood Urea Nitrogen 15 mg/dL (9-20); Calcium 9.9 mg/dL (8.4-10.2); Carbon Dioxide 22 mmol/L (22-30); Chloride 103 mmol/L (98-107); Estimated CRCL calculation 78 ml/min; Estimated Glomerular Filt Rate > 60; Glucose 297 mg/dL (65-110); Lipase 123 U/L (23-300); Potassium 3.7 mmol/L (3.4-5.0); Sodium 136 mmol/L (137-145)
[2021-02-11 10:55] LABS: Alveolar/Arterial O2 Gradient 78.3 mmHg; Base Excess ABG -1.9 mEq/l (+/-2.0); Carboxyhemoglobin 1.1 % THb (0-2.0); Fractional Inspired Oxygen 28 %; HCO3 ABG 20.1 mEq/l (22.0-26.0); Methemoglobin ABG 0.2 %THb (0-1.5); Oxygen Content ABG 21.6 %vol (16.0-22.0); Oxygen Saturation ABG 97.3 % (95.0-100.0); Oxyhemoglobin 95.4 % THb (90.0-100.0); PCO2 ABG 28.2 mmHg (35.0-45.0); PO2 ABG 88.1 mmHg (80.0-100.0); PO2 FiO2 Ratio Arterial Blood 3.15 %; Reduced Hemoglobin 3.3 %THb (0-5.0); Total Hemoglobin 16.1 g/dL (12.0-18.0); pH ABG 7.471 (7.350-7.450)
[2021-02-11 10:56] LABS: Device NASAL CANNULA; Modified Allen's Test Pass; Site Drawn RIGHT RADIAL
[2021-02-11 11:03] LABS: NT Pro B Type Natriuretic Pept 148 pg/mL (5-100); Troponin I < 0.012 ng/mL (0.000-0.034)
--- NOTE | 2021-02-11 11:17 | PC.NURSE ---
nickolas, vani yadav
[2021-02-11] MEDS: SODIUM CHLORIDE 0.9% IV 1,000 ML 999 ML IV CONT (11:29)
[2021-02-11 12:08] LABS: Add Urine Microscopic? YES; Appearance Urine Clear (Clear); Bilirubin Urine Negative (Negative); Blood Urine Negative (Negative); Color Urine Yellow (Yellow); Glucose Urine UA 3+ mg/dL (Negative); Ketones Urine Trace mg/dL (Negative); Lactic Acid Reflex 1.3 mmol/L (0.7-2.1); Leukocyte Esterase Ur Negative LEU/UL (Negative); Nitrate Urine Negative (Negative); Protein Urine 1+ mg/dL (Negative); RBC Urine 0-2 /hpf (0-2); Specific Grav Ur 1.027 (1.001-1.035); Squamous Epithelial Cell Urine Occasional /hpf (Few); Urobilinogen Urine Negative mg/dL (<2.0)
[2021-02-11 12:12] LABS: D Dimer 0.39 ug/mL (<0.48)
[2021-02-11 12:49] LABS: Procalcitonin 0.1 ng/mL
[2021-02-11 13:47] LABS: Troponin I < 0.012 ng/mL (0.000-0.034)
--- NOTE | 2021-02-11 14:35 | PC.NURSE ---
This patient, Roscoe Pérez Sr., was admitted to 3 Med Surg Room 329-01. Patient/family oriented to hospital policies and general routines including ID bracelet, bed and alarms, visiting hours, pain management, procedures, bathroom and other care routines, personal items, smoking policy, room service/diet, and visiting hours. Report received from Mayra CASTRO. Information on how to activate the Rapid Response Team has been discussed. Patient/Family are encouraged to report perceived risks to care and to ask questions if they do not understand what they are told or what they should do.
[2021-02-11 14:58] LABS: Glucose Point of Care 223 mg/dl (65-105)
[2021-02-11] MEDS: LACTATED RINGERS 1,000 ML 70 ML IV CONT (15:44)
[2021-02-11] MEDS: DEXAMETHASONE SOD PHOS INJ 4 MG/ML VIAL 6 MG IV PUSH (15:45)
[2021-02-11 17:15] LABS: Troponin I < 0.012 ng/mL (0.000-0.034)
[2021-02-11 17:27] LABS: Glucose Point of Care 268 mg/dl (65-105)
[2021-02-11] MEDS: INSULIN ASPART (*BKC) 100 UNITS/ML SUB-Q (17:34)
--- NOTE | 2021-02-11 17:35 | PM.IMHP ---
H&P: HPI History of Present Illness Date/Time: 02/11/21 17:35 this is a 70-year-old male patient who has a history of hypertension and diabetes. The patient has been fully vaccinated for COVID-19. The patient has been short of breath since this past . The patient does not wear oxygen at home. The patient tested positive for COVID-19 on 02/08/2021. Is reported that the patient has oxygen came down to 90% on room air in emergency room. Patient was placed on 1 L per nasal cannula. The patient was given a dose of Decadron in the emergency room. The patient had been started on IV fluids which I discontinued. The patient stated that he is short of breath while laying in bed and walking. Patient stated after he on sees having difficulty catching his breath. His live-in girlfriend is also positive for COVID as well. The patient is being admitted for observation status on 02/11/2021 Chief Complaint: Shortness of breath Review of Systems Review of Systems: All systems reviewed & are unremarkable except as noted in HPI and below Constitutional: Constitutional: Reports as per HPI and Reports no additional constitutional complaints Eyes: Eyes: Reports as per HPI and Reports no additional eye complaints ENT: Reports system reviewed and no additional complaints, except as documented and Reports Normal hearing present Cardiovascular: Cardiovascular: Reports no additional cardiovascular complaints Respiratory: Respiratory: Reports no additional respiratory complaints and Reports no additional respiratory complaints Gastrointestinal: Gastrointestinal: Reports as per HPI and Reports no additional gastrointestinal complaints Musculoskeletal: Musculoskeletal: Reports no additional musculoskeletal complaints Integumentary/Breasts: Skin/Breast: Reports system reviewed and no additional complaints, except as docu and Reports as per HPI Neurologic: Reports system reviewed and no additional complaints, except as documented, Reports as per HPI and Reports Normal hearing present Psychiatric: Psychiatric: Reports no additional psychiatric complaints and Reports as per HPI Endocrine: Endocrine: Reports no additional endocrine complaints Hematologic/Lymphatic: Hematologic/Lymphatic: Reports no additional hematologic/lymphatic complaints Allergic/Immunologic: Allergic/Immunologic: Reports no additional allergic/immunologic complaints [facility] Past Medical History Medical History (Updated 02/11/21 @ 17:48 by Domonique Teague NP) BMI 31.0-31.9,adult BMI 32.0-32.9,adult Essential hypertension Fever Gastroesophageal reflux disease without esophagitis History of CVA (cerebrovascular accident) History of DVT (deep vein thrombosis) Long-term anticoagulation History of DVT in adulthood Hyperlipidemia Hypothyroidism Insulin dependent diabetes mellitus Left carotid artery occlusion Nephrolithiasis Obstructive sleep apnea Type 2 diabetes mellitus without complication, without long-term current use of insulin Surgical History Surgical History (Updated 02/11/21 @ 17:43 by Domonique Teague NP) History of cataract extraction History of knee replacement Partial right knee replacement Status post hip replacement Left side Status post placement of ureteral stent Right side Family History Family History Sibling No problems noted. Father Cancer Mother No problems noted. Sibling No problems noted. Grandparent Diabetes mellitus Social History Social History (Updated 02/11/21 @ 17:44 by Domonique Teague NP) Social History: The patient lives with his sleeve in girlfriend. The patient quit smoking 40+ years ago. The patient has 2 children. His son is the durable power personal injury attorney for healthcare. The patient is retired from [employer]. 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 Patient occasionally has a beer on the weekend. Maybe 3 or 4 beers a week.
[2021-02-11 18:54] LABS: INR 1.5; Prothrombin Time 17.7 Seconds (11.1-14.7)
[2021-02-11 18:55] LABS: Alanine Aminotransferase 20 U/L (4-50); Estimated CRCL calculation 84 ml/min; Estimated Glomerular Filt Rate > 60
[2021-02-11] MEDS: ROSUVASTATIN 10 MG TABLET PO (20:50)
[2021-02-11] MEDS: PANTOPRAZOLE 40 MG TABLET PO (20:50)
[2021-02-11] MEDS: REMDESIVIR 200 MG/NS 250 ML 200 MG/250 ML BAG 250 MG IVPB (20:53)
[2021-02-11] MEDS: GABAPENTIN 300 MG CAPSULE PO (20:53)
[2021-02-11] MEDS: WARFARIN (*PBKC) 1 MG TABLET PO (20:53)
[2021-02-11] MEDS: ENOXAPARIN 120 MG/0.8 ML SYRINGE 105 MG SUB-Q (20:53)
[2021-02-11] MEDS: WARFARIN (*PBKC) 3 MG TABLET 6 MG PO (20:54)
[2021-02-11] MEDS: INSULIN GLARGINE (*BKC) 100 UNITS/ML SUB-Q (20:55)
[2021-02-11] MEDS: ALBUTEROL SULFATE (*SP) INHALER 2 PUFF INHALATION (21:20)
[2021-02-11 23:43] LABS: Glucose Point of Care 307 mg/dl (65-105)
[2021-02-12] VITALS (10 sets, daily range): BP systolic 134–156; BP diastolic 64–90; PULSE 63–90; RESP 16–20; TEMP 36.3–36.9; O2SAT 93–98
[2021-02-12] MEDS: ALBUTEROL SULFATE (*SP) INHALER 2 PUFF INHALATION ×4 (02:50→21:02)
[2021-02-12 06:36] LABS: Basophils Percent Auto 0.3 % (0.2-1.2); Eosinophils Percent Auto 0.3 % (0-4.4); Hematocrit 44.8 % (42.0-52.0); Immature Granulocyte Absolute 0.05 K/mm3 (0.00-0.031); Immature Granulocyte Percent A 0.9 % (0-0.5); Lymphocytes Absolute Auto 0.84 K/mm3 (0.9-3.2); Lymphocytes Percent Auto 14.3 % (18.3-44.2); Mean Corpuscular HGB Conc 33.5 g/dl (32-36); Mean Corpuscular Hemoglobin 33.3 pg (26-34); Mean Corpuscular Volume 99.6 fl (80-100); Mean Platelet Volume 11.6 fl (7.4-10.4); Monocytes Absolute Auto 0.5 K/mm3 (0.1-0.6); Neutrophils Absolute Auto 4.5 K/mm3 (1.3-6.7); Neutrophils Percent Auto 76.2 % (45.5-73.1); Platelet Count Result 220 k/mm3 (150-375); White Blood Count 5.9 K/mm3 (4.5-10.0)
[2021-02-12] MEDS: LEVOTHYROXINE SODIUM 100 MCG TABLET PO (06:36)
[2021-02-12] MEDS: LEVOTHYROXINE SODIUM 75 MCG TABLET PO (06:37)
[2021-02-12 06:55] LABS: INR 1.6; Prothrombin Time 18.6 Seconds (11.1-14.7)
[2021-02-12 07:09] LABS: Alanine Aminotransferase 18 U/L (4-50); Albumin Level 3.7 g/dL (3.5-5.1); Alkaline Phosphatase 54 U/L (38-126); Anion Gap 11 mmol/L (8-16); Aspartate Amino Transferase 18 U/L (17-59); Bilirubin,Total 0.6 mg/dL (0.2-1.3); Blood Urea Nitrogen 14 mg/dL (9-20); Calcium 9.6 mg/dL (8.4-10.2); Carbon Dioxide 20 mmol/L (22-30); Chloride 110 mmol/L (98-107); Estimated CRCL calculation 94 ml/min; Estimated Glomerular Filt Rate > 60; Glucose 209 mg/dL (65-110); Lactate Dehydrogenase 406 U/L (313-618); Magnesium 2.1 mg/dL (1.6-2.3); Potassium 3.9 mmol/L (3.4-5.0); Sodium 141 mmol/L (137-145)
[2021-02-12 07:17] LABS: Hemoglobin A1C 7.7 % (<5.7)
[2021-02-12] MEDS: CYANOCOBALAMIN 1,000 MCG TABLET 1000 MCG PO (09:09)
[2021-02-12] MEDS: atenoloL 50 MG TABLET PO (09:09)
[2021-02-12] MEDS: PANTOPRAZOLE 40 MG TABLET PO ×2 (09:09→20:19)
[2021-02-12] MEDS: ENOXAPARIN 120 MG/0.8 ML SYRINGE 105 MG SUB-Q ×2 (09:09→20:19)
[2021-02-12] MEDS: FENOFIBRATE NANOCRYSTALLIZED 145 MG TABLET PO (09:10)
[2021-02-12] MEDS: GABAPENTIN 300 MG CAPSULE 600 MG PO (09:10)
[2021-02-12] MEDS: POTASSIUM CHLORIDE 10 MEQ TABLET.ER 30 MEQ PO (09:11)
[2021-02-12] MEDS: FAMOTIDINE 20 MG/2 ML VIAL IV PUSH ×2 (09:12→20:19)
[2021-02-12] MEDS: hydroCHLOROthiazide 25 MG TABLET PO (09:12)
[2021-02-12] MEDS: traMADol HCL (*CRX) 50 MG TABLET 100 MG PO (09:15)
[2021-02-12 09:29] LABS: Glucose Point of Care 185 mg/dl (65-105)
[2021-02-12] MEDS: INSULIN GLARGINE (*BKC) 100 UNITS/ML 45 UNITS SUB-Q (09:43)
[2021-02-12 12:41] LABS: Glucose Point of Care 303 mg/dl (65-105)
[2021-02-12] MEDS: INSULIN ASPART (*BKC) 100 UNITS/ML SUB-Q ×2 (13:21→18:04)
--- NOTE | 2021-02-12 14:21 | PM.IMPN ---
Progress Note: A&P Assessment and Plan (1) Frequent urination: Code(s): R35.0 - Frequency of micturition Status: Acute Assessment and Plan: He states he has been dealing with a UTI for 4 months which is being worked up by his PCP. He reports frequent urination, small quantities every 15-20 minutes. Urinalysis was normal as than 3+ glucose and 4-6 wbc's. He denies any change to his color foul odor. He has not been on any antibiotics here recently. He reports being on tamsulosin in the past but not anymore. He does have a urologist to follow-up with. Will check a bladder scan and postvoid residual. Patient states he was on tamsulosin but is not on it any longer. Continue monitoring. (2) COVID-19: Code(s): U07.1 - COVID-19 Status: Acute Assessment and Plan: Patient was found to be mildly hypoxic at 90% and placed on 1 L via nasal cannula. He was started on remdesivir and Decadron #2, and currently he is 95% on room air. Continue symptomatic treatment with inhalers, antitussives, antipyretics as needed Continue monitoring wean oxygen as needed. (3) Hypoxemia: Code(s): R09.02 - Hypoxemia Status: Acute Assessment and Plan: Mildly hypoxic and placed on 1 L via nasal cannula. He was weaned off of the oxygen this morning by the respiratory therapist. He is breathing well on room air currently. (4) Insulin dependent diabetes mellitus: Status: Chronic Assessment and Plan: Glucose was 209 this morning. Hemoglobin A1c is 7.7%. Will do sliding scale insulin. With Accu-Cheks AC and HS. Continue with his Lantus metformin is on hold at this time. (5) History of DVT in adulthood: Code(s): Z86.718 - Personal history of other venous thrombosis and embolism Status: Acute Assessment and Plan: The patient is on Coumadin however his INR is only 1.6. He is not therapeutic. So we can bridge his Lovenox until he is therapeutic on Coumadin. (6) Hypothyroidism: Qualifiers: Hypothyroidism type: other Qualified Code(s): E03.8 - Other specified hypothyroidism Code(s): E03.9 - Hypothyroidism, unspecified Status: Acute Assessment and Plan: Continue with levothyroxine. TSH normal. (7) Hyperlipidemia: Qualifiers: Hyperlipidemia type: mixed hyperlipidemia Qualified Code(s): E78.2 - Mixed hyperlipidemia Code(s): E78.5 - Hyperlipidemia, unspecified Status: Acute Assessment and Plan: Continue with rosuvastatin. LFTs normal. Continue with fenofibrate (8) Essential hypertension: Code(s): I10 - Essential (primary) hypertension Status: Acute Assessment and Plan: Blood pressure 140/80 this morning. Stable at this time. Continue with atenolol and hydrochlorothiazide Time Spent With Patient Time with patient: 25 - 35 minutes Subjective Date/time seen: 02/12/21 14:21 Interval history: Date of service 02/12/2021: The patient reports feeling weak, fatigued today. He states I just want to feel better. He reports shortness of breath at times when he takes a deep breath, exertion, and has a dry cough. He denies any fevers, chills, chest pain, nausea, vomiting, abdominal pain, loss of sense of taste or smell, leg swelling, calf pain, or any other symptoms at this time. He states he has been dealing with a UTI for 4 months which is being worked up by his PCP. He reports frequent urination, small quantities every 15-20 minutes. He denies any change to his color foul odor. He has not been on any antibiotics her
[2021-02-12] MEDS: FUROSEMIDE INJ 40 MG/4 ML VIAL 20 MG IV PUSH (15:56)
[2021-02-12 17:17] LABS: Glucose Point of Care 382 mg/dl (65-105)
[2021-02-12] MEDS: WARFARIN (*PBKC) 3 MG TABLET 6 MG PO (20:18)
[2021-02-12] MEDS: REMDESIVIR 100 MG/NS 250 ML 100 MG/250 ML BAG 250 MG IVPB (20:18)
[2021-02-12] MEDS: GABAPENTIN 300 MG CAPSULE PO (20:19)
[2021-02-12] MEDS: ROSUVASTATIN 10 MG TABLET PO (20:20)
[2021-02-12] MEDS: INSULIN GLARGINE (*BKC) 100 UNITS/ML SUB-Q (20:44)
[2021-02-12 22:21] LABS: Glucose Point of Care 352 mg/dl (65-105)
[2021-02-13] VITALS (15 sets, daily range): BP systolic 122–135; BP diastolic 64–68; PULSE 56–74; RESP 16–18; TEMP 36–37.1; O2SAT 87–96
[2021-02-13] MEDS: ALBUTEROL SULFATE (*SP) INHALER 2 PUFF INHALATION ×4 (02:16→20:57)
[2021-02-13] MEDS: LEVOTHYROXINE SODIUM 100 MCG TABLET PO (05:51)
[2021-02-13] MEDS: LEVOTHYROXINE SODIUM 75 MCG TABLET PO (05:51)
[2021-02-13 08:09] LABS: INR 1.5; Prothrombin Time 18.2 Seconds (11.1-14.7)
[2021-02-13 08:19] LABS: Alanine Aminotransferase 19 U/L (4-50); Anion Gap 9 mmol/L (8-16); Blood Urea Nitrogen 20 mg/dL (9-20); Calcium 9.7 mg/dL (8.4-10.2); Carbon Dioxide 25 mmol/L (22-30); Chloride 105 mmol/L (98-107); Estimated CRCL calculation 76 ml/min; Estimated Glomerular Filt Rate > 60; Glucose 153 mg/dL (65-110); Potassium 3.3 mmol/L (3.4-5.0); Sodium 139 mmol/L (137-145)
[2021-02-13 09:09] LABS: Glucose Point of Care 135 mg/dl (65-105)
[2021-02-13] MEDS: FAMOTIDINE 20 MG/2 ML VIAL IV PUSH ×2 (09:37→21:01)
[2021-02-13] MEDS: POTASSIUM CHLORIDE 10 MEQ TABLET.ER 30 MEQ PO (09:37)
[2021-02-13] MEDS: FENOFIBRATE NANOCRYSTALLIZED 145 MG TABLET PO (09:38)
[2021-02-13] MEDS: PANTOPRAZOLE 40 MG TABLET PO ×2 (09:38→21:03)
[2021-02-13] MEDS: ENOXAPARIN 120 MG/0.8 ML SYRINGE 105 MG SUB-Q ×2 (09:38→22:04)
[2021-02-13] MEDS: atenoloL 50 MG TABLET PO (09:38)
[2021-02-13] MEDS: CYANOCOBALAMIN 1,000 MCG TABLET 1000 MCG PO (09:38)
[2021-02-13] MEDS: INSULIN GLARGINE (*BKC) 100 UNITS/ML 45 UNITS SUB-Q (09:39)
[2021-02-13] MEDS: hydroCHLOROthiazide 25 MG TABLET PO (09:39)
[2021-02-13] MEDS: GABAPENTIN 300 MG CAPSULE 600 MG PO (09:39)
--- NOTE | 2021-02-13 10:46 | HOMEO2EVAL ---
Evaluation was performed at [facility] Home Oxygen Evaluation RC: Home Oxygen (O2) Evaluation Start: 02/13/21 08:09 Freq: ONCE Status: Active Protocol: RPE Activity Type Activity Date Activity User E-Sign Co-Sign Detail Recorded Client Recorded Date Recorded By Document 02/13/21 09:30 RENEE [email or web address] 02/13/21 10:46 RENEE Document 02/13/21 09:32 RENEE [email or web address] 02/13/21 10:46 RENEE Document 02/13/21 09:35 RENEE [email or web address] 02/13/21 10:46 RENEE Document 02/13/21 09:45 RENEE [email or web address] 02/13/21 10:46 RENEE 02/13/21 02/13/21 02/13/21 09:30 09:32 09:35 Home O2 Evaluation Test Phase Resting Exercise Exercise Oxygen Delivery Room Air Room Air Nasal Cannula Oxygen Flow Rate (L/min) 1 Pulse Oximetry (90-100 %) 92 87 L 90 Home Oxygen Evaluation Comments PT REQUIRED 1 L WITH ACTIVITY Treatment Charges O2 Evaluation - Inpatient 02/13/21 09:45 Home O2 Evaluation Test Phase Resting Oxygen Delivery Room Air Oxygen Flow Rate (L/min) Pulse Oximetry (90-100 %) 92 Home Oxygen Evaluation Comments Treatment Charges
[2021-02-13] MEDS: POTASSIUM CHLORIDE 20 MEQ TABLET 40 MEQ PO (10:49)
[2021-02-13] MEDS: traMADol HCL (*CRX) 50 MG TABLET 100 MG PO (10:49)
--- NOTE | 2021-02-13 11:17 | PCRCNOTE ---
HOME O2 EVAL DONE, PT REQUIRES 1 L WITH ACTIVITY, WILL ARRANGE HOME O2 WITH DME AND TANK TO ROOM PRIOR TO D/C.
[2021-02-13 12:04] LABS: Glucose Point of Care 326 mg/dl (65-105)
[2021-02-13] MEDS: INSULIN ASPART (*BKC) 100 UNITS/ML SUB-Q ×2 (12:34→17:49)
--- NOTE | 2021-02-13 13:33 | PM.IMPN ---
Progress Note: A&P Assessment and Plan (1) Frequent urination: Code(s): R35.0 - Frequency of micturition Status: Acute Assessment and Plan: He states he has been dealing with a UTI for 4 months which is being worked up by his PCP. He reports frequent urination, small quantities every 15-20 minutes. Urinalysis was normal as than 3+ glucose and 4-6 wbc's. He denies any change to his color foul odor. He has not been on any antibiotics here recently. He reports being on tamsulosin in the past but not anymore. He does have a urologist to follow-up with. Will check a bladder scan and postvoid residual. Patient states he was on tamsulosin but is not on it any longer. Continue monitoring. (2) COVID-19: Code(s): U07.1 - COVID-19 Status: Acute Assessment and Plan: Patient was found to be mildly hypoxic at 90% and placed on 1 L via nasal cannula. He was started on remdesivir and Decadron #3, and currently he is 92% on room air. Continue symptomatic treatment with inhalers, antitussives, antipyretics as needed Continue monitoring wean oxygen as needed. (3) Hypoxemia: Code(s): R09.02 - Hypoxemia Status: Acute Assessment and Plan: Resting comfortably on RA at this time, Home O2 evaluation showed him becoming hypoxic at 87% with exertion and recommends 1 L with exertion. Continue monitoring oxygenation and wean oxygen as tolerated. (4) Insulin dependent diabetes mellitus: Status: Chronic Assessment and Plan: Glucose was 153 this morning. Hemoglobin A1c is 7.7%. Will do sliding scale insulin. With Accu-Cheks AC and HS. Continue with his Lantus metformin is on hold at this time. (5) History of DVT in adulthood: Code(s): Z86.718 - Personal history of other venous thrombosis and embolism Status: Acute Assessment and Plan: The patient is on Coumadin however his INR is only 1.6. He is not therapeutic. So we can bridge his Lovenox until he is therapeutic on Coumadin. (6) Hypothyroidism: Qualifiers: Hypothyroidism type: other Qualified Code(s): E03.8 - Other specified hypothyroidism Code(s): E03.9 - Hypothyroidism, unspecified Status: Acute Assessment and Plan: Continue with levothyroxine. TSH normal. (7) Hyperlipidemia: Qualifiers: Hyperlipidemia type: mixed hyperlipidemia Qualified Code(s): E78.2 - Mixed hyperlipidemia Code(s): E78.5 - Hyperlipidemia, unspecified Status: Acute Assessment and Plan: Continue with rosuvastatin. LFTs normal. Continue with fenofibrate (8) Essential hypertension: Code(s): I10 - Essential (primary) hypertension Status: Acute Assessment and Plan: Blood pressure 132/65 this morning. Stable at this time. Continue with atenolol and hydrochlorothiazide Time Spent With Patient Time with patient: 25 - 35 minutes Subjective Date/time seen: 02/13/21 13:33 Interval history: Date of service 02/13/2021: The patient reports his breathing is a little worse today with talking and walking. Otherwise he is feeling better, more energy. Continued dry cough. He denies any fevers, chills, chest pain, nausea, vomiting, abdominal pain, loss of sense of taste or smell, leg swelling, calf pain, or any other symptoms at this time. He states he has been dealing with a UTI for 4 months which is being worked up by his PCP. He reports frequent urination, small quantities every 15-20 minutes. He denies any change to his color foul odor. He has not been on any antibiotics here recentl
[2021-02-13 17:01] LABS: Glucose Point of Care 345 mg/dl (65-105)
[2021-02-13] MEDS: GABAPENTIN 300 MG CAPSULE PO (21:01)
[2021-02-13] MEDS: WARFARIN (*PBKC) 3 MG TABLET 6 MG PO (21:01)
[2021-02-13] MEDS: ROSUVASTATIN 10 MG TABLET PO (21:02)
[2021-02-13] MEDS: WARFARIN (*PBKC) 1 MG TABLET PO (21:02)
[2021-02-13] MEDS: REMDESIVIR 100 MG/NS 250 ML 100 MG/250 ML BAG 250 MG IVPB (21:04)
[2021-02-13] MEDS: INSULIN GLARGINE (*BKC) 100 UNITS/ML SUB-Q (21:14)
[2021-02-13 21:18] LABS: Glucose Point of Care 377 mg/dl (65-105)
[2021-02-14] VITALS (12 sets, daily range): BP systolic 123–138; BP diastolic 57–71; PULSE 56–89; RESP 18–20; TEMP 35.7–36.4; O2SAT 93–100
[2021-02-14] MEDS: LEVOTHYROXINE SODIUM 100 MCG TABLET PO (05:36)
[2021-02-14] MEDS: LEVOTHYROXINE SODIUM 75 MCG TABLET PO (05:36)
--- NOTE | 2021-02-14 06:35 | PCRCNOTE ---
Window of time for administration has passed. See next scheduled administration.
[2021-02-14 07:28] LABS: Alanine Aminotransferase 20 U/L (4-50); Anion Gap 8 mmol/L (8-16); Blood Urea Nitrogen 18 mg/dL (9-20); Calcium 9.6 mg/dL (8.4-10.2); Carbon Dioxide 28 mmol/L (22-30); Chloride 102 mmol/L (98-107); Estimated CRCL calculation 70 ml/min; Estimated Glomerular Filt Rate > 60; Glucose 142 mg/dL (65-110); Potassium 3.2 mmol/L (3.4-5.0); Sodium 138 mmol/L (137-145)
[2021-02-14 07:39] LABS: INR 1.8; Prothrombin Time 20.4 Seconds (11.1-14.7)
[2021-02-14 08:26] LABS: Glucose Point of Care 111 mg/dl (65-105)
[2021-02-14] MEDS: POTASSIUM CHLORIDE 10 MEQ TABLET.ER 30 MEQ PO (08:34)
[2021-02-14] MEDS: hydroCHLOROthiazide 25 MG TABLET PO (08:34)
[2021-02-14] MEDS: atenoloL 50 MG TABLET PO (08:34)
[2021-02-14] MEDS: FENOFIBRATE NANOCRYSTALLIZED 145 MG TABLET PO (08:34)
[2021-02-14] MEDS: GABAPENTIN 300 MG CAPSULE 600 MG PO (08:35)
[2021-02-14] MEDS: PANTOPRAZOLE 40 MG TABLET PO (08:35)
[2021-02-14] MEDS: CYANOCOBALAMIN 1,000 MCG TABLET 1000 MCG PO (08:35)
[2021-02-14] MEDS: FAMOTIDINE 20 MG/2 ML VIAL IV PUSH (08:36)
[2021-02-14] MEDS: ENOXAPARIN 120 MG/0.8 ML SYRINGE 105 MG SUB-Q (08:37)
[2021-02-14] MEDS: INSULIN GLARGINE (*BKC) 100 UNITS/ML 45 UNITS SUB-Q (08:51)
[2021-02-14] MEDS: traMADol HCL (*CRX) 50 MG TABLET 100 MG PO (09:00)
[2021-02-14] MEDS: POTASSIUM CHLORIDE 20 MEQ TABLET 40 MEQ PO (09:17)
[2021-02-14] MEDS: ALBUTEROL SULFATE (*SP) INHALER 2 PUFF INHALATION ×2 (09:33→13:18)
[2021-02-14 11:54] LABS: Glucose Point of Care 165 mg/dl (65-105)
--- NOTE | 2021-02-14 14:34 | PM.DS ---
DS: Admitting Diagnosis Discharge Date 02/14/21 Admitting Diagnosis SOB DS: Discharge Diagnosis Discharge Diagnosis (1) Frequent urination: Code(s): R35.0 - Frequency of micturition Status: Acute Assessment and Plan: The patient is a 70-year-old man with a history of hypertension, diabetes, who was vaccinated for COVID-19, who presented to the emergency room for increased shortness of breath. Patient tested positive for COVID on 02/08/2021. He had been doing well at home but continued to have toribio shortness of breath when he walked around or talked on the phone for too long. He had generalized weakness and poor appetite. Initial vitals showed elevated blood pressure 182/101, tachycardic at 101, increased respiratory rate 22, oxygen saturation was 90% and the ER put him on 1 L of oxygen and admitted them into the hospital for COVID pneumonia and started on IV room does severe and dexamethasone. Initial labs showed normal CBC with differential, normal D-dimer. Normal BMP other than elevated glucose at 400. Normal urinalysis with no signs of an infection and even though the patient reports to me he has been dealing with a urinary tract infection for the last 4 months. He reports frequent urination, small quantities every 15-20 minutes. Urinalysis was normal as than 3+ glucose and 4-6 wbc's. He denies any change to his color foul odor. He has not been on any antibiotics here recently. He reports being on tamsulosin in the past but not anymore. He will need a urologist to follow-up with. The patient had a home oxygen evaluation which showed he does not require any oxygen. His appetite was returning back. He is feeling much better and I educated him about quarantine and purchasing a pulse oximeter. Return to ER warnings given. The patient understands agrees the plan all questions answered. He was discharged to continue Decadron as an outpatient for tele 10 days. (2) COVID-19: Code(s): U07.1 - COVID-19 Status: Acute Assessment and Plan: (3) Hypoxemia: Code(s): R09.02 - Hypoxemia Status: Acute Assessment and Plan: (4) Insulin dependent diabetes mellitus: Status: Chronic Assessment and Plan: (5) History of DVT in adulthood: Code(s): Z86.718 - Personal history of other venous thrombosis and embolism Status: Acute Assessment and Plan: INR 1.8 improved, but still subtherapeutic. Will check an INR in a few days and have him follow-up with his primary care provider (6) Hypothyroidism: Qualifiers: Hypothyroidism type: other Qualified Code(s): E03.8 - Other specified hypothyroidism Code(s): E03.9 - Hypothyroidism, unspecified Status: Acute Assessment and Plan: Continue with levothyroxine. TSH normal. (7) Hyperlipidemia: Qualifiers: Hyperlipidemia type: mixed hyperlipidemia Qualified Code(s): E78.2 - Mixed hyperlipidemia Code(s): E78.5 - Hyperlipidemia, unspecified Status: Acute Assessment and Plan: Continue with rosuvastatin. LFTs normal. Continue with fenofibrate (8) Essential hypertension: Code(s): I10 - Essential (primary) hypertension Status: Acute Assessment and Plan: Blood pressure 131/71 this morning. Stable at this time. Continue with atenolol and hydrochlorothiazide DS: Summary Hospital Course Hospital Course: See above Status at Discharge Cognitive/behavioral status at discharge: Stable, improved. Time Spent with Patient Time attestation: Total time spent p
--- NOTE | 2021-02-14 14:56 | PCRCNOTE ---
HOME O2 EVAL REPEATED, PT HAS NO REQUIREMENTS.
== END 2021-02-14 15:55 | disposition home or self-care (01) | DRG 177 ==
LOC: ANHED 13:15 → ANH3MEDSUR 13:36
PROVIDERS: Emergency Medicine Emergency Medical Services; Nurse Practitioner; Physician Assistant; Admitting Provider Internal Medicine; Emergency Provider Emergency Medicine; PCP Family Medicine; Visit Provider Internal Medicine
DX: U07.1 COVID-19 (principal); J12.82 Pneumonia due to coronavirus disease 2019; R35.0 Frequency of micturition; R09.02 Hypoxemia; E11.9 Type 2 diabetes mellitus without complications; E03.9 Hypothyroidism, unspecified; E78.2 Mixed hyperlipidemia; I10 Essential (primary) hypertension; K21.9 Gastro-esophageal reflux disease without esophagitis; G47.33 Obstructive sleep apnea (adult) (pediatric); Z96.642 Presence of left artificial hip joint; Z86.718 Personal history of other venous thrombosis and embolism; Z86.73 Personal history of transient ischemic attack (TIA), and cerebral infarction without residual deficits; Z79.01 Long term (current) use of anticoagulants
CPT/HCPCS: 36415; 36600; 71045; 80048; 80053; 81001; 82375; 82565; 82805; 82948; 83036; 83050; 83605; 83615; 83690; 83735; 83880; 84145; 84443; 84460; 84484; 85025; 85380; 85610; 85730; 87040; 93005; 94618; 94640; 96361; 96372; 96374; 96375; 96376; 99285; A9270; G0378; J1100; J1650; J1815; J1940; J7030; J7120

== ENCOUNTER 2021-02-26 13:42 | Outpatient (CLI) | payer MEDICARE, SELFPAY ==
--- NOTE | ~2021-02-26 | XR_ITS ---
XR chest 2V DATE: 02/26/2021 14:21 INDICATION: Covid 19 for 2 weeks. Shortness of breath. TECHNIQUE: PA and lateral views COMPARISON: 02/11/2021 notable AP chest FINDINGS: There are mild patchy infiltrates in the mid and lower lung zones, significantly improved s fabi 02/03/2021. Normal heart size. No hilar or mediastinal enlargement. No pleural effusion or pulmonary vascular con gestion or pneumothorax. Diffuse hepatic skeletal hyperostosis of the thoracic spine. IMPRESSION: Significant improvement of bilateral infiltrates since 02/11/2021 Reviewed, dictated and finalized at location B.
== END 2021-02-26 13:43 | disposition home or self-care (01) ==
LOC: ANHIMG 13:55
PROVIDERS: PCP Family Medicine; Visit Provider Nurse Practitioner Family
DX: U07.1 COVID-19 (principal); J12.82 Pneumonia due to coronavirus disease 2019
CPT/HCPCS: 71046

== ENCOUNTER 2021-03-14 11:50 | Outpatient (CLI) | payer MEDICARE, SELFPAY ==
--- NOTE | ~2021-03-14 | XR_ITS ---
EXAMINATION: XR abdomen/kub 1V INDICATION: Hematuria and left-sided pain TECHNIQUE: Supine views of the abdomen were obtained on three radiographs. COMPARISON: 05/19/2018 FINDINGS: No definite urolithiasis is identified. The bowel gas pattern is normal. There are changes of left total hip arthroplasty. There is mild osteoarthritis of the right hip. IMPRESSION: 1. No definite urolithiasis identified. Reviewed, dictated and finalized at location A.
== END 2021-03-14 11:51 | disposition home or self-care (01) ==
LOC: ANHIMG 11:59
PROVIDERS: PCP Family Medicine; Visit Provider Nurse Practitioner Family
DX: R31.9 Hematuria, unspecified (principal)
CPT/HCPCS: 74018

== ENCOUNTER 2021-07-23 07:23 | Outpatient (CLI) | payer MEDICARE, SELFPAY ==
--- NOTE | ~2021-07-23 | CT_ITS ---
EXAMINATION: CT abdomen pelvis wo con DATE: 07/23/2021 08:08 INDICATION: Calcium kidney stone TECHNIQUE: Computed tomography (CT) of the abdomen and pelvis was performed without intravenous contr ast. The dose-length product (DLP) was 574.05 mGy-cm. Automated exposure control and iterative recons truction technique were employed. COMPARISON: 07/31/2010 FINDINGS: The lung bases are clear. The heart size is normal. Calcified coronary artery atheroscleros is is noted. Subendocardial fat deposition in the lateral wall of the left ventricle likely reflects prior myocardial infarction. Stones are present in the nondistended gallbladder. The liver, spleen, p ancreas, and adrenal glands are normal. There are nonobstructing stones of the left kidney measuring 4 mm, 7 mm, and 8 mm. No stones are identified in the right kidney, the ureters, or the bladder. Ther e is no hydronephrosis or hydroureter. There is calcified atherosclerosis of the aorta and many of th e other arteries. No pathologically enlarged abdominal or pelvic lymph nodes are identified. The appe ndix is normal. There are bilaterally hernias containing fat. Changes of left hip arthroplasty are no carol ann. There is moderate lumbar spondylosis. IMPRESSION: 1. Nonobstructing left nephrolithiasis. 2. Cholelithiasis. Reviewed, dictated and finalized at location B. ER TACK
--- NOTE | ~2021-07-23 | XR_ITS ---
EXAMINATION: XR abdomen/kub 1V INDICATION: Calcium kidney stone TECHNIQUE: Supine views of the abdomen were obtained on 2 radiographs. COMPARISON: CT from today FINDINGS: Cholelithiasis is noted. Bowel contents project over the kidneys limiting sensitivity for r enal stones. The known left kidney stones are not visualized. The lung bases are clear. There is mode rate osteoarthritis of the right hip. Changes of left total hip arthroplasty are noted. IMPRESSION: 1. Known left nephrolithiasis not visualized. Reviewed, dictated and finalized at location B. 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
== END 2021-07-23 07:24 | disposition home or self-care (01) ==
LOC: ANHIMG 07:25
PROVIDERS: PCP Family Medicine; Visit Provider Urology
DX: N20.0 Calculus of kidney (principal); K80.20 Calculus of gallbladder without cholecystitis without obstruction
CPT/HCPCS: 74018; 74176

== ENCOUNTER 2021-08-22 13:05 | Outpatient (CLI) | payer MEDICARE, SELFPAY ==
[2021-08-22 13:55] LABS: INR 1.7; Prothrombin Time 19.3 Seconds (11.1-14.7)
[2021-08-22 13:56] LABS: Partial Thromboplastin Time 29.8 SECONDS (22.3-36.8)
[2021-08-22 13:58] LABS: Anion Gap 9 mmol/L (8-16); Blood Urea Nitrogen 19 mg/dL (9-20); Calcium 9.9 mg/dL (8.4-10.2); Carbon Dioxide 25 mmol/L (22-30); Chloride 102 mmol/L (98-107); Estimated Glomerular Filt Rate 60; Glucose 240 mg/dL (65-110); Potassium 4.1 mmol/L (3.4-5.0); Sodium 136 mmol/L (137-145)
== END 2021-08-22 13:06 | disposition home or self-care (01) ==
PROVIDERS: Anesthesiology; PCP Family Medicine; Visit Provider Urology
DX: Z01.812 Encounter for preprocedural laboratory examination (principal); Z79.01 Long term (current) use of anticoagulants; Z79.899 Other long term (current) drug therapy; E11.9 Type 2 diabetes mellitus without complications; R39.15 Urgency of urination
CPT/HCPCS: 36415; 80048; 85610; 85730; 87077; 87086; 87186

== ENCOUNTER 2021-09-02 00:29 | Day surgery (SDC) | payer MEDICARE, SELFPAY ==
[2021-08-21 13:50] VITALS: BMI 30.9
--- NOTE | 2021-08-21 14:15 | PC.NURSE ---
Report to the Outpatient Waiting Room, entrance under the green pavilion located off [facility], at time _0700_ on date _09/02/21_. OR Time: _0900_. - You and your visitor will be asked a series of questions to screen for COVID 19 for your protection. - A mask is required within the hospital. One visitor will be allowed to accompany the patient into the hospital. Patients visitor will be instructed to remain with patient at all times or leave the building. We will allow the visitor to come back to the postoperative area when patient is ready. Preoperative COVID Testing Requirements: NONE Patients may have clear liquids (water, carbonated beverages, clear teas, apple juice) until 3 hours prior to surgery (0600 AM) with a maximum of 20 ounces. - No food from midnight until time of surgery Take the following medications with a SIP of water the morning of surgery: _ATENOLOL, GABAPENTIN, LEVOTHYROXINE_ Medications to discontinue - _WARFARIN PER DR. BURKS'S INSTRUCTIONS__ Medications to discontinue per ANESTHESIA - _ALL VITAMINS 3 DAYS PRIOR TO SURGERY, Date to take last dose_08/29/21_ Please no deodorant, or body powder the day of surgery. No jewelry (including any body piercings) or valuables the day of surgery, leave them at home. Please take a shower or bath the night before, or the morning of, surgery with an antibacterial soap. Wear comfortable, loose fitting clothing. - Jewelry must be removed prior to entering the operating room. Rings and piercings that are not removed may be cut off. - The hospital will not accept responsibility for valuables. - Please leave all valuables, including medications, at home the day of surgery. If you are going home after surgery, a licensed tractor sweeper driver must drive you home. - NO public transportation without another adult. - We recommend that an adult stay with you for 24 hours following discharge. - We also recommend that you do not drive, make important decision, drink alcoholic beverages, or take any drugs that were not prescribed by your health care provider for at least 24 hours after your discharge time. Follow any additional instructions given to you from your surgeon. Telephone instructions given to ____PT and asked if any additional questions and then verbalized understanding. Patient advised to call surgeon office or pre surgery nurse liaisonPANCHITO [phone] if any additional questions.
[2021-09-02] VITALS (8 sets, daily range): BP systolic 108–164; BP diastolic 75–96; PULSE 61–72; RESP 12–20; TEMP 36–36.6; O2SAT 97–100
--- NOTE | 2021-09-02 06:59 | WPDANESEPPF ---
Anes - Initial Pre Proc Eval Procedure: Operation Date: 09/02/21 08:30 Proposed Procedures p Cystoscopy, Bladder Biopsy with Fulguration - Jesus Manuel Felder MD Date/Time: 09/02/21 06:59 Surgeon: Jesus Manuel Felder MD Pre Op Diagnosis: urinary urgency, overactive bladder Patient Data Age: 71 Gender: M Height: 1.88 m Weight: 109.09 kg Allergies Allergy/AdvReac Type Severity Reaction Status Date / Time No Known Allergies Allergy Verified 09/02/21 07:00 Home Medications Medication Instructions Recorded Confirmed Type insulin glargine 100 unit/mL (3 45 unit SUB-Q QAM ml 05/28/19 08/21/21 History mL) subcutaneous pen levothyroxine 175 mcg tablet 175 mcg PO QAM 05/28/19 08/21/21 History metformin 500 mg tablet,extended 1,000 mg PO BID tablet 05/28/19 08/21/21 History release 24hr insulin lispro 100 unit/mL See Rx Instructions .ROUTE .COMPLEX 05/29/19 08/21/21 History subcutaneous pen mecobalamin (vitamin B12) 1,000 1,000 mcg SUBLINGUAL QAM 09/16/20 08/21/21 History mcg disintegrating tablet,sublingual Lantus Solostar U-100 Insulin 100 unit SUBCUT HS 02/11/21 08/21/21 History omeprazole 20 mg PO QAM 02/11/21 08/21/21 History rosuvastatin 10 mg PO HS 02/11/21 08/21/21 History mirabegron 25 mg tablet,extended 25 mg PO DAILY #14 tablet 07/10/21 08/21/21 Rx release 24 hr warfarin 1 mg tablet See Rx Instructions .ROUTE 07/28/21 08/21/21 Rx .COMPLEX #90 tablet warfarin 6 mg tablet 6 mg PO HS #90 tablet 07/28/21 08/21/21 Rx atenolol 50 mg PO QAM 08/21/21 08/21/21 History celecoxib 200 mg QAM 08/21/21 08/21/21 History fenofibrate micronized 200 mg PO QAM 08/21/21 08/21/21 History gabapentin 300 mg PO TID 08/21/21 08/21/21 History hydrochlorothiazide 25 mg PO QAM 08/21/21 08/21/21 History multivitamin [Daily Multi-Vitamin] 1 tablet PO QAM 08/21/21 08/21/21 History potassium chloride 30 meq PO QAM 08/21/21 08/21/21 History warfarin See Rx Instructions .ROUTE .COMPLEX 08/21/21 08/21/21 History Patient hx anesthesia problems: none Family hx anesthesia problems: none Results Review: All pre-operative results and documents have been reviewed as part of the pre-operative evaluation. [facility] Past Medical History Medical History BMI 31.0-31.9,adult BMI 32.0-32.9,adult Essential hypertension Fever Gastroesophageal reflux disease without esophagitis History of CVA (cerebrovascular accident) History of DVT (deep vein thrombosis) Long-term anticoagulation History of DVT in adulthood Hyperlipidemia Hypothyroidism Insulin dependent diabetes mellitus Left carotid artery occlusion Nephrolithiasis Obstructive sleep apnea Type 2 diabetes mellitus without complication, without long-term current use of insulin Surgical History Surgical History H/O lithotripsy History of cataract extraction History of knee replacement Partial right knee replacement Status post hip replacement Left side Status post placement of ureteral stent Right side Family History Family History Sibling No problems noted. Father Cancer Mother No problems noted. Sibling No problems noted. Grandparent Diabetes mellitus Social History Social History Social History: The patient lives with his sleeve in girlfriend. The patient quit smoking 40+ years ago. The patient has 2 children. His son is the durable power contract attorney for healthcare. The patient is retired from [employer]. 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 Patient occasionally has a beer on the weekend. Maybe 3 or 4 beers a week. Patient denies any marijuana or illicit drugs. Smoking packs per day: 2 Smoking cigarettes per day: 40.0 Years smoked: 8 Smoking pack-years: 16.00 Smoking sta
--- NOTE | 2021-09-02 07:19 | WPDHPUPDATE1 ---
History and Physical Update Update Date/Time: 09/02/21 07:19 History and Physical has been reviewed, including an updated exam of the patient. There are NO changes in the patient's condition. Risks, benefits, and alternatives have been discussed and questions answered. Patient agrees to proceed with procedure. Proceed with cysto, bladder biopsy with fulguration
[2021-09-02] MEDS: LACTATED RINGERS 1,000 ML 30 ML IV CONT (07:25)
[2021-09-02 07:26] LABS: Glucose Point of Care 183 mg/dl (65-105)
[2021-09-02 07:39] LABS: INR 1.3
[2021-09-02] MEDS: ceFAZolin 2 GM/D5W 50 ML 2 GM/50 ML BAG IVPB (08:28)
[2021-09-02] MEDS: LIDOCAINE HCL 2% GEL UROJET 10 ML PKG MUCOUS MEM (08:41)
--- NOTE | 2021-09-02 09:05 | W.PM.PROC2 ---
Procedure Note - Detailed Date of Procedure 09/02/21 Pre-op Diagnosis urinary urgency, overactive bladder Post-op Diagnosis Same Procedure Performed Urethral dilation, cystoscopy, Transurethral resection of bladder tumors with fulguration Surgeon Jesus Manuel Felder MD Anesthesia General Findings Irregularity along the right bladder neck floor area as well as left lateral wall fairly large area greater than 5 cm Description of Procedure Patient is taken the operative suite correctly identified. Once anesthesia was obtained was placed in dorsal lithotomy position and prepped and draped usual sterile fashion. Urethra was dilated to 24 [place]. Twenty-two [place] scope was inserted. There were no urethral strictures. Prostate has some lateral lobe hypertrophy. The bladder itself has been 2+ trabeculation. There is irregularity on the floor on the right at approximately a 7 to 8 o'clock position extending to the bladder neck area. There is also quite a diffuse area of irregularity along the left lateral wall extending to the bladder neck into the left david trigone area. Sure some lesions that appear somewhat papillary in nature. They may even be of low malignant potential. Using a 24 [place] resectoscope sheath resected the abnormality on the right side and then separately the left side. The area was too large to resect all of. We went ahead and used the ball electrode to fulgurate the base of the resections. Some of the area was too difficult to get to at the bladder neck area on the left. 2% viscous lidocaine was inserted urethra patient is taken recovery stable condition. Will see with final path shows. My concern is regarding the extensive nature of this irregularity. If there is some carcinoma present possibly doing BCG and re-resection at a later point time. Drains No Packing No Pathology Yes Complications No immediate complications Condition Stable Disposition PACU
[2021-09-02 09:23] LABS: Glucose Point of Care 123 mg/dl (65-105)
[2021-09-02] MEDS: oxyCODONE HCL (*CRX) 5 MG TAB IR PO (10:21)
== END 2021-09-02 10:55 | disposition home or self-care (01) ==
PROVIDERS: Anesthesiology; PCP Family Medicine; Visit Provider Urology
PROC: 0TBB8ZX Excision of Bladder, Via Natural or Artificial Opening Endoscopic, Diagnostic (ICD-10-PCS; CPT 52204; principal; 2021-09-02 08:30)
DX: D09.0 Carcinoma in situ of bladder (principal); R39.15 Urgency of urination; N32.81 Overactive bladder; I10 Essential (primary) hypertension; K21.9 Gastro-esophageal reflux disease without esophagitis; E78.5 Hyperlipidemia, unspecified; E03.9 Hypothyroidism, unspecified; E11.9 Type 2 diabetes mellitus without complications; G47.33 Obstructive sleep apnea (adult) (pediatric); Z87.891 Personal history of nicotine dependence; E66.9 Obesity, unspecified; Z68.30 Body mass index [BMI] 30.0-30.9, adult; Z79.4 Long term (current) use of insulin; Z79.84 Long term (current) use of oral hypoglycemic drugs; Z79.01 Long term (current) use of anticoagulants
CPT/HCPCS: 52240; 36415; 82948; 85610; 88305; A9270; J0690; J1100; J2405; J2704; J3010; J7120

== ENCOUNTER 2021-11-26 14:18 | Outpatient (CLI) | payer MEDICARE, SELFPAY ==
--- NOTE | ~2021-11-26 | XR_ITS ---
XR hip LT min 2V DATE: 11/26/2021 14:45 INDICATION: Fall 4 months ago. Left hip pain TECHNIQUE: AP and lateral views COMPARISON: None FINDINGS: Status post left total hip arthroplasty. No recent fracture or dislocation, periosteal reac tion or bone destruction is detected. There are some ununited greater trochanteric fracture fragments or heterotopic soft tissue ossificati on adjacent to the greater trochanter. IMPRESSION: Status post left total hip arthroplasty No recent fracture or dislocation Reviewed, dictated and finalized at location A.
--- NOTE | ~2021-11-26 | XR_ITS ---
XR lumbar spine 2-3V DATE: 11/26/2021 14:45 INDICATION: Fall 4 months ago. Left low back pain TECHNIQUE: AP, lateral, coned lateral lumbosacral views COMPARISON: 12/2014 lumbar spine 07/31/2010 CT abdomen pelvis FINDINGS: 9.8 x 12 mm calcification overlying the right renal pelvis. Several approximately 7-8 mm calcifications in a transverse linear array overlie the right upper quad rant, likely calcified gallstones. There is extensive calcification of the abdominal aorta without evidence of aneurysm, as well as some bilateral common iliac artery calcifications. Status post left total hip arthroplasty. There is moderate multilevel degenerative disc disease of the lumbar spine with very prominent degene rative spurring and bridging osteophytes. The included lower thoracic and lumbar pedicles are intact. No fracture or bone destruction or spondy lolisthesis is evident. The sacroiliac joints are intact. IMPRESSION: Multilevel moderate degenerative disc disease of lumbar spine with prominent spurring, in cluding prominent bridging osteophytes Status post left total hip arthroplasty Cholelithiasis Probable right renal approximately 9.8 x 12 mm calcified calculus Reviewed, dictated and finalized at location A. IMPRESSION: Multilevel moderate degenerative disc disease of lumbar spine with prominent spurring, including prominent bridging osteophytes Status post left total hip arthroplasty Cholelithiasis Probable right renal approximately 9.8 x 12 mm calcified calculus
== END 2021-11-26 14:19 | disposition home or self-care (01) ==
PROVIDERS: PCP Family Medicine; Visit Provider Nurse Practitioner Family
DX: M47.816 Spondylosis without myelopathy or radiculopathy, lumbar region (principal); K80.20 Calculus of gallbladder without cholecystitis without obstruction; Z96.642 Presence of left artificial hip joint
CPT/HCPCS: 72100; 73502

== ENCOUNTER 2022-02-14 09:57 | Outpatient (CLI) | payer MEDICARE, SELFPAY ==
--- NOTE | 2022-02-14 10:32 | ECG_ITS ---
Rate 62 FL 191 QRSd 88 QT 401 QTc 410 --[place]- P 68 QRS 78 T 47 SINUS RHYTHM COMPARED TO ECG 02/11/2021 10:29:03 NO SIGNIFICANT CHANGES Electronically Signed On 02-15-2022 17:12:53 CDT by Cathie CLARKE
[2022-02-14 10:46] LABS: Anion Gap 12 mmol/L (8-16); Blood Urea Nitrogen 19 mg/dL (9-20); Calcium 10.1 mg/dL (8.4-10.2); Carbon Dioxide 26 mmol/L (22-30); Chloride 99 mmol/L (98-107); Estimated Glomerular Filt Rate > 60; Glucose 252 mg/dL (65-110); Potassium 4.3 mmol/L (3.4-5.0); Sodium 137 mmol/L (137-145)
[2022-02-14 10:55] LABS: INR 1.1; Partial Thromboplastin Time 26.7 SECONDS (22.3-36.8); Prothrombin Time 13.8 Seconds (11.1-14.7)
== END 2022-02-14 09:58 | disposition home or self-care (01) ==
PROVIDERS: PCP Family Medicine; Visit Provider Anesthesiology
DX: C67.9 Malignant neoplasm of bladder, unspecified (principal); Z79.01 Long term (current) use of anticoagulants; I10 Essential (primary) hypertension; Z01.818 Encounter for other preprocedural examination
CPT/HCPCS: 36415; 80048; 85610; 85730; 87086; 87088; 93005

== ENCOUNTER 2022-02-17 01:09 | Day surgery (SDC) | payer MEDICARE, SELFPAY ==
[2022-02-13 15:16] VITALS: BMI 30.2
--- NOTE | 2022-02-13 15:41 | PC.NURSE ---
Report to the Outpatient Waiting Room, entrance under the green pavilion located off [facility], at time __10:30AM on date __02/17/22 . OR Time: ___12:30PM . Time changes happen often and if your time is changed the preop area will call you the afternoon before. - You and your visitor will be asked to self-screen and do not enter if you have any COVID symptoms. - Only one visitor and NO children visitors are allowed at this time. - The patient visitor is requested to leave or wait in car when not with patient due to restrictions. - A mask is required within the hospital. Patients may have clear liquids (water, carbonated beverages, clear teas, apple juice) until 3 hours prior to surgery with a maximum of 20 ounces. - No food from midnight until time of surgery Take the following medications with a SIP of water the morning of surgery: ___ATENOLOL, GABAPENTIN, LEVOTHYROXINE, ALBUTEROL INHALER NEEDED, 1/2 DOSE OF AM INSULIN(22 UNITS) Medications to discontinue per physician ____HOLD COUMADIN 7 DAYS PRE-OP(ALREADY HOLDING SINCE 02/10/22 PER VITALIY INSTRUCTION), HOLD ALL VITAMINS/SUPPLEMENTS 3 DAYS PRE-OP-LAST DOSE 02/13/22 Please no make-up, nail slovenian, hairspray, perfume, deodorant, or body powder the day of surgery. No jewelry (including any body piercings) or valuables the day of surgery, leave them at home. Please take a shower or bath the night before, or the morning of, surgery with an antibacterial soap. Wear comfortable, loose fitting clothing. Children are encouraged to wear pajamas. - Jewelry must be removed prior to entering the operating room. Rings and piercings that are not removed may be cut off. - The hospital will not accept responsibility for valuables. - Please leave all valuables, including medications, at home the day of surgery. If you are going home after surgery, a licensed shag truck driver must drive you home. - NO public transportation without another adult. - We recommend that an adult stay with you for 24 hours following discharge. - We also recommend that you do not drive, make important decision, drink alcoholic beverages, or take any drugs that were not prescribed by your health care provider for at least 24 hours after your discharge time. Follow any additional instructions given to you from your surgeon. If you or anyone in your household have experienced Covid symptoms in the past week, please notify your surgeon or the nurse liaison at the phone number below for possible testing. Telephone instructions given to __PATIENT and asked if any additional questions and then verbalized understanding. Patient advised to call surgeon office or pre surgery nurse liaison [phone] if any additional questions.
[2022-02-17] VITALS (7 sets, daily range): BP systolic 147–178; BP diastolic 62–83; PULSE 56–67; RESP 10–18; TEMP 36.3–36.4; O2SAT 97–100
[2022-02-17 10:56] LABS: Glucose Point of Care 253 mg/dl (65-105)
[2022-02-17] MEDS: LACTATED RINGERS 1,000 ML 30 ML IV CONT (11:05)
--- NOTE | 2022-02-17 11:23 | WPDANESEPPF ---
Anes - Initial Pre Proc Eval Procedure: Operation Date: 02/17/22 12:30 Proposed Procedures p Cystoscopy Bladder Biopsy with Fulguration - Jesus Manuel Felder MD Date/Time: 02/17/22 11:23 Surgeon: Jesus Manuel Felder MD Pre Op Diagnosis: bladder cancer Patient Data Age: 71 Gender: M Height: 1.88 m Weight: 105.4 kg Last Vital Signs Temp 36.4 C L 02/17/22 11:15 Pulse 66 02/17/22 11:15 Resp 18 02/17/22 11:15 BP 166/62 H 02/17/22 11:15 Pulse Ox 97 02/17/22 11:15 O2 Del Method Room Air 02/17/22 11:15 Allergies Allergy/AdvReac Type Severity Reaction Status Date / Time No Known Allergies Allergy Verified 02/17/22 11:08 Home Medications Medication Instructions Recorded Confirmed Type insulin glargine 100 unit/mL (3 45 unit subcut QAM 05/28/19 02/17/22 History mL) subcutaneous pen (Lantus Solostar U-100 Insulin) levothyroxine 175 mcg tablet 175 mcg PO QAM 05/28/19 02/17/22 History metformin 500 mg tablet,extended 1,000 mg PO BID 05/28/19 02/17/22 History release 24hr insulin lispro 100 unit/mL See Rx Instructions .Route .COMPLEX 05/29/19 02/17/22 History subcutaneous pen (Humalog KwikPen (U-100) Insulin) mecobalamin (vitamin B12) 1,000 1,000 mcg sublingual QAM 09/16/20 02/17/22 History mcg disintegrating tablet,sublingual insulin glargine 100 unit/mL (3 80 unit subcut HS 02/11/21 02/17/22 History mL) subcutaneous pen (Lantus Solostar U-100 Insulin) omeprazole 20 mg capsule,delayed 20 mg PO QAM 02/11/21 02/17/22 History release warfarin 6 mg tablet 6 mg PO HS #90 tabs 07/28/21 02/17/22 Rx celecoxib 200 mg capsule 200 mg PO BID 08/21/21 02/17/22 History multivitamin (Daily Multi-Vitamin 1 tablet PO QAM 08/21/21 02/17/22 History tablet) warfarin 5 mg tablet See Rx Instructions .Route .COMPLEX 08/21/21 02/17/22 History fenofibrate micronized 200 mg See Rx Instructions .Route 11/20/21 02/17/22 Rx capsule .COMPLEX #90 caps potassium chloride 10 mEq See Rx Instructions .Route 11/20/21 02/17/22 Rx tablet,extended release .COMPLEX #270 tabs hydrochlorothiazide 25 mg tablet 25 mg PO QAM #90 tabs 11/26/21 02/17/22 Rx rosuvastatin 10 mg tablet 10 mg PO HS #90 tabs 11/26/21 02/17/22 Rx Vascepa 1 gram capsule (icosapent 2 g PO BID #360 caps 12/03/21 02/17/22 Rx ethyl) albuterol sulfate 90 mcg/actuation 2 puff inhalation Q4-6H PRN Dyspnea 02/13/22 02/17/22 History aerosol inhaler atenolol 50 mg tablet 50 mg PO QAM 02/13/22 02/17/22 History gabapentin 300 mg capsule 300 mg PO BID 02/13/22 02/17/22 History rhrgaqfl-hpsr-kxaxz acid 400 1 tablet PO DAILY 02/13/22 02/17/22 History mcg-lycopene 600 mcg-ginkgo 120 mg tablet solifenacin 10 mg tablet 10 mg PO DAILY 02/13/22 02/17/22 History Laboratory Tests 02/17/22 10:50 POC Capillary Glucose 253 mg/dl H mg/dl (65-105) Patient hx anesthesia problems: none Family hx anesthesia problems: none Results Review: All pre-operative results and documents have been reviewed as part of the pre-operative evaluation. [facility] Past Medical History Medical History BMI 30.0-30.9,adult BMI 31.0-31.9,adult BMI 32.0-32.9,adult Essential hypertension Fever Gastroesophageal reflux disease without esophagitis History of CVA (cerebrovascular accident) History of DVT (deep vein thrombosis) Long-term anticoagulation History of DVT in adulthood Hyperlipidemia Hypothyroidism Insulin dependent diabetes mellitus Left carotid artery occlusion Nephrolithiasis Obstructive sleep apnea Type 2 diabetes mellitus without complication, without long-term current use of insulin Surgical History Surgical History H/O lithotripsy History of biopsy of bladder History of cataract extraction History of knee replacement Partial right knee replacement Status post hip replacement Left side Sta
--- NOTE | 2022-02-17 12:13 | WPDHPUPDATE1 ---
History and Physical Update Update Date/Time: 02/17/22 12:13 History and Physical has been reviewed, including an updated exam of the patient. There are NO changes in the patient's condition. Risks, benefits, and alternatives have been discussed and questions answered. Patient agrees to proceed with procedure.
[2022-02-17] MEDS: ceFAZolin 2 GM/D5W 50 ML 2 GM/50 ML BAG IVPB (12:41)
[2022-02-17] MEDS: LIDOCAINE HCL 2% GEL UROJET 10 ML PKG MUCOUS MEM (13:07)
--- NOTE | 2022-02-17 13:08 | W.PM.PROC2 ---
Procedure Note - Detailed Date of Procedure 02/17/22 Pre-op Diagnosis bladder cancer Post-op Diagnosis Same Procedure Performed Cystoscopy with bladder biopsy and fulguration Surgeon Jesus Manuel Felder MD Anesthesia General Findings Erythema along the posterior wall and floor of bladder predominantly on left side Description of Procedure Patient is taken the operative suite correctly identified. Once anesthesia was detained he was placed in dorsal lithotomy position and prepped and draped usual sterile fashion. Twenty-two [place] scope was inserted the bladder. He has no papillary growths but has some erythema along the posterior wall and the left floor just lateral to the left ureteral orifice. Using a cold cup biopsy we biopsied these areas and sent them separately. We fulgurated the area in question. There was good hemostasis. 2% viscous lidocaine was inserted into the urethra patient is taken recovery stable condition. He will call for path results in 1 week Estimated Blood Loss 0 Drains No Packing No Pathology Yes Complications No immediate complications Condition Stable Disposition PACU
[2022-02-17 13:35] LABS: Glucose Point of Care 188 mg/dl (65-105)
--- NOTE | 2022-02-17 13:45 | SUR.PHASEI ---
1343: Simple mask removed.
== END 2022-02-17 14:50 | disposition home or self-care (01) ==
PROVIDERS: PCP Family Medicine; Visit Provider Urology
PROC: 0TBB8ZX Excision of Bladder, Via Natural or Artificial Opening Endoscopic, Diagnostic (ICD-10-PCS; CPT 52204; principal; 2022-02-17 12:30)
DX: C67.4 Malignant neoplasm of posterior wall of bladder (principal); C67.0 Malignant neoplasm of trigone of bladder; E11.9 Type 2 diabetes mellitus without complications; I10 Essential (primary) hypertension; E78.5 Hyperlipidemia, unspecified; E03.9 Hypothyroidism, unspecified; G47.33 Obstructive sleep apnea (adult) (pediatric); K21.9 Gastro-esophageal reflux disease without esophagitis; Z86.718 Personal history of other venous thrombosis and embolism; Z86.73 Personal history of transient ischemic attack (TIA), and cerebral infarction without residual deficits; Z79.4 Long term (current) use of insulin; Z79.84 Long term (current) use of oral hypoglycemic drugs; Z79.01 Long term (current) use of anticoagulants; Z79.51 Long term (current) use of inhaled steroids; Z87.891 Personal history of nicotine dependence; E66.9 Obesity, unspecified; Z68.29 Body mass index [BMI] 29.0-29.9, adult
CPT/HCPCS: 52204; 82948; 88305; A9270; J0690; J1100; J2405; J2704; J3010; J7120

== ENCOUNTER → 2022-04-07 07:24 | Outpatient (CLI) | payer MEDICARE, SELFPAY ==
--- NOTE | ~2022-04-07 | MR_ITS ---
EXAMINATION: MR lumbar spine wo con DATE: 04/07/2022 08:03 INDICATION: Chronic low back pain. History of fall. Past medical history includes bladder cancer. TECHNIQUE: Magnetic resonance imaging (MRI) of the lumbar spine was performed without intravenous con trast. Sequences included sagittal T2-weighted FSE, sagittal T2-weighted FS FSE, sagittal T1-weighted FSE, and axial T2-weighted FSE. COMPARISON: None FINDINGS: The last fully formed and hydrated disc is designated L5-S1. No suspicious focal or diffuse marrow signal. Conus terminates at L1-2. Multilevel disc dehydration and height loss. Mild clumping and irregularity of the lumbar nerve roots as can be seen with lumbar arachnoiditis. The following di sc levels are specifically discussed: T11-T12: Mild diffuse disc bulge. There is no facet joint osteoarthritis. There is mild neural forami nal stenosis. There is no central canal stenosis. T12-L1: Mild diffuse disc bulge. There is mild facet joint osteoarthritis. There is no neural foramin al stenosis. There is no central canal stenosis. L1-L2: Moderate diffuse disc bulge. There is mild facet joint osteoarthritis. There is no neural fora cameron stenosis. There is no central canal stenosis. L2-L3: Severe diffuse disc bulge with a 2 mm cyst right extraforaminal focal protrusion and a small, focal vertically oriented left foraminal disc rent. There is moderate facet joint osteoarthritis. The re is mild bilateral inferior neural foraminal stenosis. There is mild central canal stenosis. L3-L4: Severe diffuse bulge with focal central circumferential disc rent. There is severe bilateral f acet joint osteoarthritis including a centrally directed synovial cyst from the left facet which cont acts the adjacent nerve roots. There is moderate bilateral neural foraminal stenosis. There is modera te central canal stenosis. L4-L5: Severe diffuse bulge, with focal central circumferential disc rent There is severe bilateral f acet joint osteoarthritis. There is moderate bilateral neural foraminal stenosis. There is critical c entral canal stenosis. L5-S1: Severe diffuse bulge with focal central circumferential disc rent. There is moderate facet kirit nt osteoarthritis. There is severe bilateral neural foraminal stenosis. There is mild central canal s tenosis. IMPRESSION: 1. No acute fracture or traumatic malalignment detected in the lumbar spine. 2. No evidence of metastatic disease in the lumbar spine. 3. Critical central canal stenosis at L4-5, secondary to degenerative disc, facet, and ligamentum светлана nge. 4. Severe bilateral neural foraminal narrowing at L5-S1. 5. Additional multilevel degenerative changes, as detailed above. Reviewed, dictated and finalized at location K. [employer] IMPRESSION: 1. No acute fracture or traumatic malalignment detected in the lumbar spine. 2. No evidence of metastatic disease in the lumbar spine. 3. Critical central canal stenosis at L4-5, secondary to degenerative disc, fac et, and ligamentum change. 4. Severe bilateral neural foraminal narrowing at L5-S1. 5. Additional multilevel degenerative changes, as detailed above.
== END ==
PROVIDERS: PCP Family Medicine; Visit Provider Nurse Practitioner Family
DX: M51.36 Other intervertebral disc degeneration, lumbar region (principal)
CPT/HCPCS: 72148

== ENCOUNTER 2022-06-25 13:39 | Outpatient (CLI) | payer MEDICARE, SELFPAY ==
[2022-06-25 14:23] LABS: Anion Gap 9 mmol/L (8-16); Blood Urea Nitrogen 9 mg/dL (9-20); Calcium 9.7 mg/dL (8.4-10.2); Carbon Dioxide 27 mmol/L (22-30); Chloride 102 mmol/L (98-107); Estimated Glomerular Filt Rate > 60; Glucose 182 mg/dL (65-110); INR 1.8; Partial Thromboplastin Time 33.1 SECONDS (22.3-36.8); Potassium 4.2 mmol/L (3.4-5.0); Prothrombin Time 20.5 Seconds (11.1-14.7); Sodium 138 mmol/L (137-145)
== END 2022-06-25 13:40 | disposition home or self-care (01) ==
LOC: ANHSURGERY 13:44
PROVIDERS: Anesthesiology; PCP Family Medicine; Visit Provider Urology
DX: E11.9 Type 2 diabetes mellitus without complications (principal); Z79.01 Long term (current) use of anticoagulants
CPT/HCPCS: 36415; 80048; 85610; 85730

== ENCOUNTER 2022-06-30 02:18 | Day surgery (SDC) | payer MEDICARE, SELFPAY ==
[2022-06-25 11:42] VITALS: BMI 31.1
--- NOTE | 2022-06-25 11:46 | PC.NURSE ---
PRE-OP INSTRUCTIONS, PLEASE READ CAREFULLY Report to the Outpatient Waiting Room, entrance under the green pavilion located off [facility], at time _0900_ on date _06/30/22_. Planned Procedure Time: _1100_. Time changes happen often and if your time is changed the preop area will call you the afternoon before. - You and your visitor will be asked to self-screen and do not enter if you have any COVID symptoms. - Only one visitor is requested with a max of two and NO children visitors are allowed at this time. - The patient visitor may be requested to leave or wait in car when not with patient due to distancing restrictions. - A mask is optional within the hospital at this time. Patients may have clear liquids (water, carbonated beverages, clear teas, apple juice) until 3 hours prior to surgery (0800 AM) with a maximum of 20 ounces. - No food from midnight until time of surgery Take the following medications with a SIP of water the morning of surgery: _ATENOLOL, CELECOXIB, GABAPENTIN, LEVOTHYROXINE_ DO NOT STOP ANY OF YOUR OTHER PRESCRIPTION MEDICATIONS PRIOR TO SURGERY ?EXCEPT THE FOLLOWING Medications to discontinue per DR. BURKS'S INSTRUCTIONS - _WARFARIN_ Medications to discontinue per ANESTHESIA - _MULTIVITAMIN 3 DAYS PRIOR TO SURGERY, Date to take last dose 06/26/22_ Please no make-up, nail costa rican, hairspray, perfume, deodorant, or body powder the day of surgery. No jewelry (including any body piercings) or valuables the day of surgery, leave them at home. Please take a shower or bath the night before, or the morning of, surgery with an antibacterial soap. Wear comfortable, loose fitting clothing. - Jewelry must be removed prior to entering the operating room. Rings and piercings that are not removed may be cut off. - The hospital will not accept responsibility for valuables. - Please leave all valuables, including medications, at home the day of surgery. If you are going home after surgery, a licensed boat driver must drive you home. - NO public transportation without another adult if you receive anesthesia. - We recommend that an adult stay with you for 24 hours following discharge. - We also recommend that you do not drive, make important decision, drink alcoholic beverages, or take any drugs that were not prescribed by your health care provider for at least 24 hours after your discharge time. Follow any additional instructions given to you from your surgeon. If you or anyone in your household have experienced Covid symptoms in the past week, please notify your surgeon or the nurse liaison at the phone number below for possible testing. Telephone instructions given to _PATIENT_and asked if any additional questions and then verbalized understanding. Patient advised to call surgeon office or pre surgery nurse liaison [phone] if any additional questions.
[2022-06-30] VITALS (9 sets, daily range): BP systolic 129–150; BP diastolic 60–88; PULSE 64–78; RESP 10–18; TEMP 36.1–36.6; O2SAT 95–99
[2022-06-30 09:50] LABS: Glucose Point of Care 148 mg/dl (65-105)
[2022-06-30 10:10] LABS: INR 1.1; Prothrombin Time 13.8 Seconds (11.1-14.7)
--- NOTE | 2022-06-30 10:16 | WPDANESEPPF ---
Anes - Initial Pre Proc Eval Procedure: Operation Date: 06/30/22 11:00 Proposed Procedures p Cystoscopy, Bladder Biopsy with Fulguration - Jesus Manuel Felder MD Date/Time: 06/30/22 10:16 Surgeon: Jesus Manuel Felder MD Pre Op Diagnosis: bladder cancer Patient Data Age: 72 Gender: M Height: 1.85 m Weight: 103.2 kg Last Vital Signs Temp 97.8 F 06/30/22 09:30 Pulse 78 06/30/22 09:30 Resp 18 06/30/22 09:30 BP 144/74 H 06/30/22 09:30 Pulse Ox 95 06/30/22 09:30 O2 Del Method Room Air 06/30/22 09:30 Allergies Allergy/AdvReac Type Severity Reaction Status Date / Time No Known Allergies Allergy Verified 06/30/22 09:27 Home Medications Medication Instructions Recorded Confirmed Type insulin glargine 100 unit/mL (3 45 unit subcut QAM 05/28/19 06/30/22 History mL) subcutaneous pen (Lantus Solostar U-100 Insulin) levothyroxine 175 mcg tablet 175 mcg PO QAM 05/28/19 06/30/22 History metformin 500 mg tablet,extended 1,000 mg PO BID 05/28/19 06/30/22 History release 24hr insulin lispro 100 unit/mL See Rx Instructions .Route .COMPLEX 05/29/19 06/30/22 History subcutaneous pen (Humalog KwikPen (U-100) Insulin) mecobalamin (vitamin B12) 1,000 1,000 mcg sublingual QAM 09/16/20 06/30/22 History mcg disintegrating tablet,sublingual insulin glargine 100 unit/mL (3 80 unit subcut HS 02/11/21 06/30/22 History mL) subcutaneous pen (Lantus Solostar U-100 Insulin) Vascepa 1 gram capsule (icosapent 2 g PO BID #360 caps 12/03/21 06/30/22 Rx ethyl) ylpadywp-ngip-rwyer acid 400 1 tablet PO DAILY 02/13/22 06/30/22 History mcg-lycopene 600 mcg-ginkgo 120 mg tablet atenolol 50 mg tablet 50 mg PO QAM #90 tabs 02/24/22 06/30/22 Rx potassium chloride 10 mEq See Rx Instructions .Route 02/24/22 06/30/22 Rx tablet,extended release .COMPLEX #270 tabs warfarin 6 mg tablet 6 mg PO HS #90 tabs 02/24/22 06/30/22 Rx hydrochlorothiazide 25 mg tablet 25 mg PO QAM #90 tabs 05/25/22 06/30/22 Rx fenofibrate micronized 200 mg See Rx Instructions .Route 05/26/22 06/30/22 Rx capsule .COMPLEX #90 caps gabapentin 300 mg capsule 300 mg PO TID #270 caps 05/26/22 06/30/22 Rx rosuvastatin 10 mg tablet 10 mg PO HS #90 tabs 05/26/22 06/30/22 Rx warfarin 5 mg tablet See Rx Instructions .Route 06/03/22 06/30/22 Rx .COMPLEX #60 tabs celecoxib 200 mg capsule 200 mg PO BID #180 caps 06/08/22 06/30/22 Rx omeprazole 20 mg capsule,delayed 20 mg PO BID 06/08/22 06/30/22 History release semaglutide (weight loss) 0.5 0.5 mg (0.5 mL) subcut WEEKLY #2 mL 06/08/22 06/30/22 Rx mg/0.5 mL subcutaneous pen injector benzonatate 100 mg capsule 100 mg PO TID PRN cough #30 caps 06/18/22 06/30/22 Rx Laboratory Tests 06/30/22 06/30/22 09:39 09:45 PT Pending INR Pending POC Capillary Glucose 148 mg/dl H mg/dl (65-105) Patient hx anesthesia problems: none Family hx anesthesia problems: none Results Review: All pre-operative results and documents have been reviewed as part of the pre-operative evaluation. [facility] Past Medical History Medical History BMI 30.0-30.9,adult BMI 31.0-31.9,adult BMI 32.0-32.9,adult Essential hypertension Fever Gastroesophageal reflux disease without esophagitis History of CVA (cerebrovascular accident) History of DVT (deep vein thrombosis) Long-term anticoagulation History of DVT in adulthood Hyperlipidemia Hypothyroidism Insulin dependent diabetes mellitus Left carotid artery occlusion Nephrolithiasis Obstructive sleep apnea Type 2 diabetes mellitus without complication, without long-term current use of insulin Surgical History Surgical History H/O lithotripsy History of biopsy of bladder History of cataract extraction History of knee replacement Partial right knee replacement Status post hip replac
--- NOTE | 2022-06-30 11:09 | WPDHPUPDATE1 ---
History and Physical Update Update Date/Time: 06/30/22 11:09 History and Physical has been reviewed, including an updated exam of the patient. There are NO changes in the patient's condition. Risks, benefits, and alternatives have been discussed and questions answered. Patient agrees to proceed with procedure. Proceed with cysto, bladder biopsy with fulguration possible TURBT
[2022-06-30] MEDS: ceFAZolin 2 GM/D5W 50 ML 2 GM/50 ML BAG IVPB (11:45)
[2022-06-30] MEDS: LIDOCAINE HCL 2% GEL UROJET 10 ML PKG MUCOUS MEM (12:04)
--- NOTE | 2022-06-30 12:12 | P.OP_ITS ---
Procedure Note - Detailed Date of Procedure 06/30/22 Pre-op Diagnosis bladder cancer Post-op Diagnosis Same Procedure Performed Cystoscopy, bladder biopsy with fulguration Surgeon Jesus Manuel Felder MD Anesthesia General Description of Procedure Patient is taken to the operative suite and correctly identified. Once anesthesia was obtained was placed in dorsal lithotomy position and prepped draped usual sterile fashion. Twenty-two Stateless scope inserted the bladder. He has some erythema along the floor just proximal to the trigone. Using a cold cup biopsy we biopsied this area. We also took a small biopsy just lateral to the resection site on the left. Hemostasis was achieved using a Bugbee electr ode. 2% viscous lidocaine was inserted into the urethra patient is taken recovery stable condition. He will call for path results in a week. Please send a copy this op note to my office. Estimated Blood Loss 0 Drains No Packing No Pathology Yes Complications No immediate complications Condition Stable Disposition PACU
[2022-06-30] MEDS: LACTATED RINGERS 1,000 ML 30 ML IV CONT (12:18)
[2022-06-30 13:51] LABS: Glucose Point of Care 138 mg/dl (65-105)
== END 2022-06-30 13:59 | disposition home or self-care (01) ==
PROVIDERS: Anesthesiology; PCP Family Medicine; Visit Provider Urology
PROC: 0TBB8ZX Excision of Bladder, Via Natural or Artificial Opening Endoscopic, Diagnostic (ICD-10-PCS; CPT 52204; principal; 2022-06-30 11:00)
DX: C67.8 Malignant neoplasm of overlapping sites of bladder (principal); I10 Essential (primary) hypertension; K21.9 Gastro-esophageal reflux disease without esophagitis; E78.5 Hyperlipidemia, unspecified; E03.9 Hypothyroidism, unspecified; E11.9 Type 2 diabetes mellitus without complications; G47.33 Obstructive sleep apnea (adult) (pediatric); Z86.73 Personal history of transient ischemic attack (TIA), and cerebral infarction without residual deficits; Z86.718 Personal history of other venous thrombosis and embolism; Z87.891 Personal history of nicotine dependence; E66.9 Obesity, unspecified; Z68.30 Body mass index [BMI] 30.0-30.9, adult; Z79.4 Long term (current) use of insulin; Z79.01 Long term (current) use of anticoagulants; Z79.899 Other long term (current) drug therapy
CPT/HCPCS: 52204; 36415; 82948; 85610; 88305; J0690; J1100; J2250; J2405; J2704; J3010; J7120

== ENCOUNTER 2022-07-21 14:50 | Outpatient (CLI) | payer MEDICARE, SELFPAY ==
[2022-07-21 15:30] LABS: Appearance Urine Clear (Clear); Bacteria Urine None Seen /hpf; Bilirubin Urine Negative (Negative); Blood Urine 2+ (Negative); Color Urine Dark Yellow (Yellow); Glucose Urine UA 1+ mg/dL (Negative); Ketones Urine Trace mg/dL (Negative); Leukocyte Esterase Ur 1+ LEU/UL (NEGATIVE); Nitrate Urine Negative (Negative); Non Pathogenic Casts 0-2; Protein Urine 1+ mg/dL (Negative); Specific Grav Ur 1.028 (1.001-1.035); Squamous Epithelial Cell Urine Moderate /hpf (Few); WBC Urine 21-50 /hpf (0-3)
[2022-07-21 15:33] LABS: Albumin Level 4.6 g/dL (3.5-5.1); Anion Gap 7 mmol/L (8-16); Blood Urea Nitrogen 18 mg/dL (9-20); Calcium 9.9 mg/dL (8.4-10.2); Carbon Dioxide 28 mmol/L (22-30); Chloride 103 mmol/L (98-107); Estimated Glomerular Filt Rate > 60; Glucose 225 mg/dL (65-110); Phosphorus 2.8 mg/dL (2.5-4.5); Sodium 138 mmol/L (137-145); Uric Acid 2.7 mg/dL (3.5-8.5)
[2022-07-21 15:40] LABS: Add Urine Microscopic? YES
== END 2022-07-21 14:51 | disposition home or self-care (01) ==
PROVIDERS: PCP Family Medicine; Visit Provider Internal Medicine Nephrology
DX: N20.0 Calculus of kidney (principal)
CPT/HCPCS: 36415; 80069; 81001; 84550

== ENCOUNTER 2022-10-16 14:28 | Outpatient (CLI) | payer MEDICARE, SELFPAY ==
[2022-10-16 15:23] LABS: Anion Gap 6 mmol/L (8-16); Blood Urea Nitrogen 10 mg/dL (9-20); Calcium 9.7 mg/dL (8.4-10.2); Carbon Dioxide 31 mmol/L (22-30); Chloride 101 mmol/L (98-107); Estimated Glomerular Filt Rate 59; Glucose 157 mg/dL (65-110); Potassium 3.9 mmol/L (3.4-5.0); Sodium 138 mmol/L (137-145)
[2022-10-16 15:24] LABS: INR 1.2
== END 2022-10-16 14:29 | disposition home or self-care (01) ==
PROVIDERS: Anesthesiology; PCP Family Medicine; Visit Provider Urology
DX: C67.9 Malignant neoplasm of bladder, unspecified (principal); Z51.81 Encounter for therapeutic drug level monitoring; E11.9 Type 2 diabetes mellitus without complications
CPT/HCPCS: 36415; 80048; 85610; 85730; 87086

== ENCOUNTER 2022-10-20 01:36 | Day surgery (SDC) | payer MEDICARE, SELFPAY ==
[2022-10-16 13:37] VITALS: BMI 30.5
--- NOTE | 2022-10-16 13:52 | PC.NURSE ---
Report to the Outpatient Waiting Room, entrance under the green pavilion located off [facility], at time __7:15AM on date ___10/20/22____. Planned Procedure Time: __9:15AM . Time changes happen often and if your time is changed the preop area will call you the afternoon before. - You and your visitor will be asked to self-screen and do not enter if you have any COVID symptoms. - A mask is optional within the hospital at this time. Patients may have clear liquids (water, carbonated beverages, clear teas, apple juice) until 3 hours prior to surgery with a maximum of 20 ounces. - No food from midnight until time of surgery Take the following medications with a SIP of water the morning of surgery: __ATENOLOL, LEVOTHYROXINE, GABAPENTIN NEEDED DO NOT STOP ANY OF YOUR OTHER PRESCRIPTION MEDICATIONS PRIOR TO SURGERY ?EXCEPT THE FOLLOWING Medications to discontinue per physician __HOLD WARFARIN 5 DAYS PRE-OP PER DR BURKS(PER PATIENT)- LAST DOSE 10/14/22. HOLD ALL VITAMINS/SUPPLEMENTS 3 DAYS PRE-OP- LAST DOSE 10/16/22 Please no make-up, nail azeri, hairspray, perfume, deodorant, or body powder the day of surgery. No jewelry (including any body piercings) or valuables the day of surgery, leave them at home. Please take a shower or bath the night before, or the morning of, surgery with an antibacterial soap. Wear comfortable, loose fitting clothing. Children are encouraged to wear pajamas. - Jewelry must be removed prior to entering the operating room. Rings and piercings that are not removed may be cut off. - The hospital will not accept responsibility for valuables. - Please leave all valuables, including medications, at home the day of surgery. If you are going home after surgery, a licensed driver sales must drive you home. - NO public transportation without another adult if you receive anesthesia. - We recommend that an adult stay with you for 24 hours following discharge. - We also recommend that you do not drive, make important decision, drink alcoholic beverages, or take any drugs that were not prescribed by your health care provider for at least 24 hours after your discharge time. Follow any additional instructions given to you from your surgeon. If you or anyone in your household have experienced Covid symptoms in the past week, please notify your surgeon or the nurse liaison at the phone number below for possible testing. Telephone instructions given to ___PATIENT and asked if any additional questions and then verbalized understanding. Patient advised to call surgeon office or pre surgery nurse liaison [phone] if any additional questions.
--- NOTE | 2022-10-19 14:28 | WPDANESEPPF ---
Anes - Initial Pre Proc Eval Procedure: Operation Date: 10/20/22 09:15 Proposed Procedures p Cystoscopy with Bladder Biopsy, and Biopsy of Prostatic Urethra - Jesus Manuel Felder MD Date/Time: 10/19/22 14:28 Surgeon: Jesus Manuel Felder MD Pre Op Diagnosis: bladder CA Patient Data Age: 72 Gender: M Height: 1.85 m Weight: 105 kg Allergies Allergy/AdvReac Type Severity Reaction Status Date / Time No Known Allergies Allergy Verified 10/20/22 08:42 Home Medications Medication Instructions Recorded Confirmed Type insulin glargine 100 unit/mL (3 45 unit subcut QAM 05/28/19 10/16/22 History mL) subcutaneous pen (Lantus Solostar U-100 Insulin) levothyroxine 175 mcg tablet 175 mcg PO QAM 05/28/19 10/16/22 History metformin 500 mg tablet,extended 1,000 mg PO BID 05/28/19 10/16/22 History release 24hr insulin lispro 100 unit/mL See Rx Instructions .Route .COMPLEX 05/29/19 10/16/22 History subcutaneous pen (Humalog KwikPen (U-100) Insulin) mecobalamin (vitamin B12) 1,000 1,000 mcg sublingual QAM 09/16/20 10/16/22 History mcg disintegrating tablet,sublingual insulin glargine 100 unit/mL (3 85 unit subcut HS 02/11/21 10/16/22 History mL) subcutaneous pen (Lantus Solostar U-100 Insulin) nyzzqdeq-hjpi-llcas acid 400 1 tablet PO DAILY 02/13/22 10/16/22 History mcg-lycopene 600 mcg-ginkgo 120 mg tablet hydrochlorothiazide 25 mg tablet 25 mg PO QAM #90 tabs 05/25/22 10/16/22 Rx rosuvastatin 10 mg tablet 10 mg PO HS #90 tabs 05/26/22 10/16/22 Rx warfarin 5 mg tablet See Rx Instructions .Route 06/03/22 10/20/22 Rx .COMPLEX #60 tabs celecoxib 200 mg capsule 200 mg PO BID #180 caps 06/08/22 10/16/22 Rx omeprazole 20 mg capsule,delayed 20 mg PO BID 06/08/22 10/16/22 History release semaglutide (weight loss) 0.5 0.5 mg (0.5 mL) subcut WEEKLY #2 mL 06/08/22 10/16/22 Rx mg/0.5 mL subcutaneous pen injector atenolol 50 mg tablet 50 mg PO QAM #90 tabs 08/13/22 10/16/22 Rx potassium chloride 10 mEq See Rx Instructions .Route 08/13/22 10/16/22 Rx tablet,extended release .COMPLEX #270 tabs fenofibrate micronized 200 mg See Rx Instructions .Route 08/14/22 10/16/22 Rx capsule .COMPLEX #90 caps Vascepa 1 gram capsule (icosapent 2 g PO BID #360 caps 09/09/22 10/16/22 Rx ethyl) gabapentin 300 mg capsule 300 mg PO BID 09/23/22 10/16/22 History warfarin 6 mg tablet 6 mg PO DIRECTED 09/23/22 10/20/22 History semaglutide 1 mg/dose (4 mg/3 mL) 1 mg subcut WEEKLY 10/16/22 10/16/22 History subcutaneous pen injector (Ozempic) Patient hx anesthesia problems: none Family hx anesthesia problems: none Results Review: All pre-operative results and documents have been reviewed as part of the pre-operative evaluation. [facility] Past Medical History Medical History BMI 30.0-30.9,adult BMI 31.0-31.9,adult BMI 32.0-32.9,adult Colon cancer screening Dysphagia Essential hypertension Fever Gastroesophageal reflux disease without esophagitis History of CVA (cerebrovascular accident) History of DVT (deep vein thrombosis) Long-term anticoagulation History of DVT in adulthood Hyperlipidemia Hypothyroidism Insulin dependent diabetes mellitus Left carotid artery occlusion Nephrolithiasis Obstructive sleep apnea Type 2 diabetes mellitus without complication, without long-term current use of insulin Surgical History Surgical History H/O lithotripsy History of biopsy of bladder History of cataract extraction History of knee replacement Partial right knee replacement Status post hip replacement Left side Status post placement of ureteral stent Right side Family History Family History Sibling No problems noted. Father Cancer Mother No problems noted. Sibling No pro
--- NOTE | 2022-10-20 07:22 | WPDHPUPDATE1 ---
History and Physical Update Update Date/Time: 10/20/22 07:22 History and Physical has been reviewed, including an updated exam of the patient. There are NO changes in the patient's condition. Risks, benefits, and alternatives have been discussed and questions answered. Patient agrees to proceed with procedure. Proceed iwth cystoscopy, bladder biopsy and biopsy of prostatic urethra.
[2022-10-20 08:22] LABS: Glucose Point of Care 160 mg/dl (65-105)
[2022-10-20 08:38] VITALS: BP 156/74; PULSE 77; RESP 14; TEMP 36.6; O2SAT 97
[2022-10-20] MEDS: LACTATED RINGERS 1,000 ML 30 ML IV CONT (08:41)
[2022-10-20] MEDS: ceFAZolin 2 GM/D5W 50 ML 2 GM/50 ML BAG IVPB (09:41)
[2022-10-20] MEDS: LIDOCAINE HCL 2% GEL UROJET 10 ML PKG MUCOUS MEM (09:59)
--- NOTE | 2022-10-20 10:06 | P.OP_ITS ---
Procedure Note - Detailed Date of Procedure 10/20/22 Pre-op Diagnosis bladder CA Post-op Diagnosis Same Procedure Performed Cystoscopy, bladder biopsy, biopsy of prostatic urethra, fulguration, Núñez catheter placement Surgeon Jesus Manuel Felder MD Anesthesia General Description of Procedure Patient is taken to the operative suite correctly identified. Once anesthesia was obtained was placed in dorsal lithotomy position and prepped and draped usual sterile fashion. Twenty-two South African scope was inserted in the urethra. He has some irregularity in the prostatic urethra which we used a cold cup biopsy to biopsy. We fulgurated the area using a Bugbee. It almost had the appearance of a little frondular tissue. This was bilateral. The bladder itself was then inspected. There were no papillary tumors but there is erythema. We went ahead and biopsied this area and fulgurated. She was located mostly along the floor of the bladder. There was good hemostasis. 2% viscous lidocaine was inserted urethra. Eighteen South African Núñez was placed and filled with 10 cc of sterile water. Patient is taken recovery stable condition. Núñez catheter can be removed in the morning. Further recommendations pending the path report. This completes dictation on this patient. Please send a copy of this to my office Estimated Blood Loss 0 Drains Yes Packing No Pathology Yes Complications No immediate complications Condition Stable Disposition PACU
[2022-10-20 10:11] VITALS: BP 159/71; PULSE 71; RESP 10; TEMP 36.4; O2SAT 98
[2022-10-20 10:25] VITALS: BP 143/73; PULSE 71; RESP 13; O2SAT 99
[2022-10-20 10:26] LABS: Glucose Point of Care 107 mg/dl (65-105)
[2022-10-20 10:40] VITALS: BP 147/78; PULSE 69; RESP 15; O2SAT 96
[2022-10-20 10:55] VITALS: BP 157/70; PULSE 67; RESP 16
[2022-10-20 11:25] VITALS: BP 122/92; PULSE 78; RESP 16
--- NOTE | 2022-10-20 11:56 | SUR.PHASEII ---
PT MEETS D/C CRITERIA AND IS WAITING FOR HIS RIDE
== END 2022-10-20 11:57 | disposition home or self-care (01) ==
PROVIDERS: Anesthesiology; PCP Family Medicine; Visit Provider Urology
PROC: 0TBB8ZX Excision of Bladder, Via Natural or Artificial Opening Endoscopic, Diagnostic (ICD-10-PCS; CPT 52204; principal; 2022-10-20 09:15)
DX: C67.0 Malignant neoplasm of trigone of bladder (principal); C68.0 Malignant neoplasm of urethra; I10 Essential (primary) hypertension; E78.5 Hyperlipidemia, unspecified; E11.9 Type 2 diabetes mellitus without complications; E03.9 Hypothyroidism, unspecified; G47.33 Obstructive sleep apnea (adult) (pediatric); K21.9 Gastro-esophageal reflux disease without esophagitis; Z86.73 Personal history of transient ischemic attack (TIA), and cerebral infarction without residual deficits; Z86.718 Personal history of other venous thrombosis and embolism; Z87.891 Personal history of nicotine dependence; E66.9 Obesity, unspecified; Z68.30 Body mass index [BMI] 30.0-30.9, adult; Z79.4 Long term (current) use of insulin; Z79.84 Long term (current) use of oral hypoglycemic drugs; Z79.01 Long term (current) use of anticoagulants; Z79.899 Other long term (current) drug therapy
CPT/HCPCS: 52204; 36415; 82948; 85610; 85730; 88305; 88342; J0690; J2405; J2704; J3010; J7120

== ENCOUNTER 2022-11-02 08:21 | Outpatient (CLI) | payer MEDICARE, SELFPAY ==
[2022-11-02 09:26] LABS: INR 1.1; Prothrombin Time 14.4 Seconds (11.1-14.7)
[2022-11-02 09:27] LABS: Partial Thromboplastin Time 26.7 SECONDS (22.3-36.8)
== END 2022-11-02 08:22 | disposition home or self-care (01) ==
PROVIDERS: PCP Family Medicine; Visit Provider Anesthesiology Pain Medicine
DX: Z79.01 Long term (current) use of anticoagulants (principal)
CPT/HCPCS: 36415; 85610; 85730

== ENCOUNTER 2022-11-03 07:15 | Day surgery (SDC) | payer MEDICARE, SELFPAY ==
[2022-10-23 10:52] VITALS: BMI 30.3
[2022-10-30 08:39] VITALS: BMI 30.2
--- NOTE | 2022-10-30 09:26 | PC.NURSE ---
0900; PREOP INTERVIEW COMPLETED. PT STATES HE HAD STOPPED HIS COUMADIN FOR 10 DAYS PRIOR TO A BLADDER BIOPSY AND COLONOSCOPY, JUST RESTARTED HIS COUMADIN ON Wednesday10/27/22. HE HAS TAKEN THE COUMADIN ON 10/27, 10/28, 10/29. HAS NOT TAKEN A DOSE YET TODAY. DR ACMPUZANO PRINTED INSTRUCTIONS STATE STOP COUMADIN 5 DAYS PRIOR TO DOS. 914; CALLED DR CAMPUZANO'S [facility] OFFICE. NOTIFIED OF COUMADIN SITUATION. 924; DR CAMPUZANO'S OFFICE CALLED BACK, DR IS ON VACATION. MAY EITHER CANCEL/RESCHEDULE CASE OR HAVE STAT PT/PTT/INR DRAWN DAY BEFORE SURGERY. 929; LABS ORDERED FOR Wednesday10/30/22, PT NOTIFIED.
--- NOTE | 2022-10-30 10:15 | PC.NURSE ---
CALLED PT, LEFT MESSAGE ON VM, PT NEEDS LABS DRAWN ON 11/02/22 IN THE AM AT [facility]. DETAILED VM LEFT FOR PT WITH THE [facility] CALL BACK NUMBER FOR QUESTIONS.
--- NOTE | ~2022-11-03 | XR_ITS ---
CORRECTED REPORT exam description change [facility] [place] 11/04/22 This report was recreated on 11/04/22. Original report was . EXAMINATION: XR fluoroscopy no charge DATE: 11/03/2022 09:21 INDICATION: Bilateral L3, L4 and L5 medial branch/dorsal ramus blocks TECHNIQUE: 6 fluoroscopic images of the lumbar spine were obtained during procedure performed by Dr. Kitchen. Radiologist was not present for the imaging or procedure. The amount of fluoroscopy time used during this procedure was 0.5 minutes. FINDINGS: Fluoroscopic images demonstrate needle tips and injected contrast projecting near the expected location of the junctions of the transverse and superior articular processes bilaterally at L4 and L5 as well as bilaterally at the junction of the superior articular process and cephalad margin of the sacral ala at S1. No evident internal vascular or intrathecal contrast appreciated. IMPRESSION: 1. Fluoroscopy utilized during bilateral L3-L5 medial branch/dorsal ramus blocks. See procedure note for further detail. Reviewed, dictated and finalized at location A. MTDD IMPRESSION: 1. Fluoroscopy utilized during bilateral L3-L5 medial branch/dorsal ramus block s. See procedure note for further detail.
[2022-11-03 08:06] VITALS: BP 161/78; PULSE 97; RESP 16; TEMP 36.2; O2SAT 97
--- NOTE | 2022-11-03 08:49 | WPDHPUPDATE1 ---
History and Physical Update Update Date/Time: 11/03/22 08:49 History and Physical has been reviewed, including an updated exam of the patient. There are NO changes in the patient's condition. Risks, benefits, and alternatives have been discussed and questions answered. Patient agrees to proceed with procedure.
[2022-11-03 09:00] VITALS: BP 160/85; PULSE 85; RESP 17; O2SAT 97
[2022-11-03 09:05] VITALS: BP 166/90; PULSE 87; RESP 15; O2SAT 97
[2022-11-03 09:10] VITALS: BP 165/85; PULSE 85; RESP 16; O2SAT 96
[2022-11-03] MEDS: BUPivacaine HCL 0.5% 10 ML AMP 3 ML INFILTRATE (09:15)
--- NOTE | 2022-11-03 09:17 | WPDHPUPDATE1 ---
History and Physical Update Update Date/Time: 11/03/22 09:17 History and Physical has been reviewed, including an updated exam of the patient. There are NO changes in the patient's condition. Risks, benefits, and alternatives have been discussed and questions answered. Patient agrees to proceed with procedure.
[2022-11-03 09:19] VITALS: BP 144/55; PULSE 76; RESP 18; O2SAT 96
--- NOTE | 2022-11-03 09:51 | W.PM.PROC2 ---
Procedure Note - Detailed Date of Procedure 11/03/22 Pre-op Diagnosis M47.812 Post-op Diagnosis Same Procedure Performed bilateral L3, L4, L5 medial branch/ dorsal ramus diagnostic blocks under fluoroscopic guidance. Surgeon Ambrose Kitchen MD Regional Coordinator none. Anesthesia Local Indications Bilateral chronic low back pain with lumbosacral spondylosis. Findings None. Description of Procedure INFORMED CONSENT: Risks, benefits and alternatives to the procedure were discussed in detail with the patient who expressed explicit understanding and consent to proceed. Patient was informed verbally and in written form regarding the risks associated with the procedure including the low risk of serious infection, bleeding/bruising, allergic reaction, nerve or organ injury, paralysis, procedural site pain or discomfort, worsening pain and/or mobility, failure to treat and/or disfigurement. The patient expressed explicit understanding and consent to proceed. All materials required for the procedure were available prior to procedure start. Site and side were marked prior to procedure and confirmed in the presence of the patient. PROCEDURE IN DETAIL: The patient was brought to the procedural suite and placed in the prone position. Patient was made comfortable with use of pillows under the head/chest, hips and ankles. Skin overlying the injection site on the affected side(s) was prepared broadly with ChloraPrep applicator and draped in a sterile manner. Aseptic technique was used throughout. The endplates of the vertebral bodies at the site(s) of interest were aligned in the AP view. Ipsilateral oblique angulation was utilized to optimize visualization of the intersection between the superior articulating process and transverse process at each target site. Local anesthesia was established by infiltration with approximately 5 mL of 1% lidocaine via a 1-1/2 inch 27-gauge needle. A 25-gauge 3.5 inch Quincke spinal needle was advanced until the needle tip contacted periosteum at the target site, Right L3. Lateral view was utilized to confirm the appropriate placement of the needle tip just anterior to the facet line and superior to the pedicle. In the Lateral view, 0.25 mL of Omnipaque 180 contrast medium was injected after negative aspiration for CSF, blood or other bodily fluid, showing appropriate extra-articular spread of contrast without evidence of intravascular, foraminal or intrathecal placement. A 0.5 mL solution of 0.5% PF bupivacaine was injected after negative repeat aspiration. Appropriate spread of the injectate was confirmed with washout of previously injected contrast. No parasthesias were elicited. Needle was removed completely intact without difficulty. The same exact procedure was repeated for all remaining levels on the ipsilateral side, right L4, L5 medial branches/dorsal ramus, modified as necessary to accommodate for the new target location with identical findings and results and no evidence of complication. The same exact procedure was repeated for all remaining levels on the contralateral side, left L3, L4, L5 medial branches/dorsal ramus, modified as necessary to accommodate for the new target location with identical findings and results and no evidence of complication. Images were saved and documented in the patient chart. Patient's skin was cleaned and sterile bandage applied. The patient tolerated the procedure well. The patient was transported to the recovery area in stable condition where they were observed for an appropriate amount of time prior to discharge, without evidence of complication. Patient was instructed on the appropriate completion of a pain diary over the next 12-24 hours. The patient was instructed to avoid excessive activity for the next 48 hours, including climbing and frequent use of stairs. Showers only for 48 hours. They were instructed not to drive or operate heavy machinery for 24 hours. They are to monitor for severe hea
--- NOTE | 2022-11-03 09:54 | W.PM.PROC2 ---
Procedure Note - Detailed Date of Procedure 11/03/22 Pre-op Diagnosis M47.812 Post-op Diagnosis Same Procedure Performed Bilateral L3, L4, L5 medial branch/dorsal ramus diagnostic blocks addressing the bilateral L4-5, L5-S1 facet joints under fluoroscopic guidance. Surgeon Ambrose Kitchen MD Primary School Teacher Librarian none. Anesthesia Local Indications Chronic bilateral low back pain with lumbosacral spondylosis. Findings None. Description of Procedure INFORMED CONSENT: Risks, benefits and alternatives to the procedure were discussed in detail with the patient who expressed explicit understanding and consent to proceed. Patient was informed verbally and in written form regarding the risks associated with the procedure including the low risk of serious infection, bleeding/bruising, allergic reaction, nerve or organ injury, paralysis, procedural site pain or discomfort, worsening pain and/or mobility, failure to treat and/or disfigurement. The patient expressed explicit understanding and consent to proceed. All materials required for the procedure were available prior to procedure start. Site and side were marked prior to procedure and confirmed in the presence of the patient. PROCEDURE IN DETAIL: The patient was brought to the procedural suite and placed in the prone position. Patient was made comfortable with use of pillows under the head/chest, hips and ankles. Skin overlying the injection site on the affected side(s) was prepared broadly with ChloraPrep applicator and draped in a sterile manner. Aseptic technique was used throughout. The endplates of the vertebral bodies at the site(s) of interest were aligned in the AP view. Ipsilateral oblique angulation was utilized to optimize visualization of the intersection between the superior articulating process and transverse process at each target site. Local anesthesia was established by infiltration with approximately 5 mL of 1% lidocaine via a 1-1/2 inch 27-gauge needle. A 25-gauge 3.5 inch Quincke spinal needle was advanced until the needle tip contacted periosteum at the target site, Right L3. Lateral view was utilized to confirm the appropriate placement of the needle tip just anterior to the facet line and superior to the pedicle. In the Lateral view, 0.25 mL of Omnipaque 180 contrast medium was injected after negative aspiration for CSF, blood or other bodily fluid, showing appropriate extra-articular spread of contrast without evidence of intravascular, foraminal or intrathecal placement. A 0.5 mL solution of 0.5% PF bupivacaine was injected after negative repeat aspiration. Appropriate spread of the injectate was confirmed with washout of previously injected contrast. No parasthesias were elicited. Needle was removed completely intact without difficulty. The same exact procedure was repeated for all remaining levels on the ipsilateral side, right L4, L5 medial branches/dorsal ramus, modified as necessary to accommodate for the new target location with identical findings and results and no evidence of complication. The same exact procedure was repeated for all remaining levels on the contralateral side, left L3, L4, L5 medial branches/dorsal ramus, modified as necessary to accommodate for the new target location with identical findings and results and no evidence of complication. Images were saved and documented in the patient chart. Patient's skin was cleaned and sterile bandage applied. The patient tolerated the procedure well. The patient was transported to the recovery area in stable condition where they were observed for an appropriate amount of time prior to discharge, without evidence of complication. Patient was instructed on the appropriate completion of a pain diary over the next 12-24 hours. The patient was instructed to avoid excessive activity for the next 48 hours, including climbing and frequent use of stairs. Showers only for 48 hours. They were instructed not to drive or operate heavy machinery
== END 2022-11-03 09:45 | disposition home or self-care (01) ==
PROVIDERS: PCP Family Medicine; Visit Provider Anesthesiology Pain Medicine
PROC: (CPT 64493; principal; 2022-11-03 08:30)
DX: M47.816 Spondylosis without myelopathy or radiculopathy, lumbar region (principal)
CPT/HCPCS: 64493 ×2; 99199

== ENCOUNTER 2022-11-13 12:55 | Outpatient (CLI) | payer MEDICARE, SELFPAY ==
--- NOTE | ~2022-11-13 | XR_ITS ---
EXAM: XR lumbar spine min 4V DATE: 11/13/2022 13:15 HISTORY: M54.5 - Low back pain . COMPARISON: 11/26/2021; CT abdomen pelvis 07/23/2021. FINDINGS: 5 nonrib-bearing lumbar-type vertebral bodies. Pedicles intact. 2 mm retrolistheses at L2- 3 and L3-4 that remain stable in flexion and extension. Vertebral body heights preserved. Multilevel disc space narrowing, moderate at L5-S1. Multilevel marginal osteophytosis including large bridging a nterior and lateral osteophytes. Facet sclerosis and hypertrophy, moderate at L3-4 and L4-5, severe a t L5-S1. Partially visualized left hip hardware. Calcified abdominal aorta measuring up to 3.1 cm. No fracture or dislocation. Rounded calcifications project over the right upper quadrant. IMPRESSION: Multilevel moderate lumbar degenerative disc disease. Multilevel moderate and severe facet arthropath y. No dynamic listhesis. 3.1 cm fusiform abdominal aortic aneurysm, consider ultrasound of the aorta for confirmation/baseline . Cholelithiasis. Reviewed, dictated and finalized at location K. IMPRESSION: Multilevel moderate lumbar degenerative disc disease. Multilevel moderate and s evere facet arthropathy. No dynamic listhesis. 3.1 cm fusiform abdominal aortic aneurysm, consider ultrasound of the aorta for confirmation/baseline. Cholelithiasis.
== END 2022-11-13 12:56 | disposition home or self-care (01) ==
PROVIDERS: PCP Family Medicine; Visit Provider Neurological Surgery
DX: K80.20 Calculus of gallbladder without cholecystitis without obstruction (principal); M51.36 Other intervertebral disc degeneration, lumbar region; I71.40 Abdominal aortic aneurysm, without rupture, unspecified
CPT/HCPCS: 72110

== ENCOUNTER 2022-11-30 08:15 | Outpatient (CLI) | payer MEDICARE, SELFPAY ==
[2022-11-30 08:50] LABS: INR 1.2; Prothrombin Time 15.8 Seconds (11.1-14.7)
== END 2022-11-30 08:16 | disposition home or self-care (01) ==
LOC: ANHLAB 08:17
PROVIDERS: PCP Family Medicine; Visit Provider Anesthesiology Pain Medicine
DX: Z79.01 Long term (current) use of anticoagulants (principal); Z01.818 Encounter for other preprocedural examination
CPT/HCPCS: 36415; 85610

== ENCOUNTER 2022-12-01 06:10 | Day surgery (SDC) | payer MEDICARE, SELFPAY ==
--- NOTE | 2022-11-26 15:04 | PC.NURSE ---
SPOKE TO DONNA AT DR CAMPUZANO'S OFFICE REGARDING COUMADIN. SHE SAID I COULD LOCATE THE COUMADIN INSTRUCTIONS IN THE H&P FROM THE OFFICE VISIT ON 11/16/[address] CAMPUZANO. SHE CALLED PT YESTERDAY, WED, AND LEFT A MESSAGE. I CALLED PT TODAY, 11/26/22, AND LEFT A MESSAGE STATING TO STOP COUMADIN TODAY IF PT IS PLANNING ON HAVING PROCEDURE ON 12/01/22. ALSO THAT I WOULD CALL PT AGAIN TOMORROW.
[2022-11-30 12:57] VITALS: BMI 30.2
--- NOTE | ~2022-12-01 | XR_ITS ---
EXAMINATION: XR fluoroscopy no charge DATE: 12/01/2022 7:15 CDT INDICATION: Kirk L3,4,5 Lumbar Medial Branch/Dorsal Ramus Block . TECHNIQUE: 10 fluoroscopic images of the lumbar spine were obtained during bilateral L3, 4, 5 lumbar medial branch/dorsal ramus block performed by the surgeon. I was not present in the operating room. F luoroscopy exposure time was 28.2 seconds. Air Kerma 24.64 mGy. COMPARISON: None FINDINGS: Bilateral needle positioning at the L3, L4, and L5 nerve roots, followed by small volume contrast inj ection. IMPRESSION: Fluoroscopic documentation of bilateral L3, L4, and L5 lumbar medial branch/dorsal ramus block. Pleas e refer to the operative note for complete procedural details . Reviewed, dictated and finalized at location K. IMPRESSION: Fluoroscopic documentation of bilateral L3, L4, and L5 lumbar medial branch/alonso henrry ramus block. Please refer to the operative note for complete procedural det ails .
[2022-12-01 06:55] VITALS: BP 144/73; PULSE 71; RESP 18; TEMP 36.1; O2SAT 94; BMI 29.5
[2022-12-01 07:07] LABS: Glucose Point of Care 172 mg/dl (65-105)
--- NOTE | 2022-12-01 07:19 | WPDHPUPDATE1 ---
History and Physical Update Update Date/Time: 12/01/22 07:19 History and Physical has been reviewed, including an updated exam of the patient. There are NO changes in the patient's condition. Risks, benefits, and alternatives have been discussed and questions answered. Patient agrees to proceed with procedure.
[2022-12-01 07:40] VITALS: BP 174/92; PULSE 78; RESP 20; O2SAT 96
[2022-12-01] MEDS: LIDOCAINE HCL 1% PF INJ 5 ML VIAL XX (07:48)
[2022-12-01 07:50] VITALS: BP 149/83; PULSE 76; RESP 20; O2SAT 95
[2022-12-01] MEDS: LIDOCAINE HCL 2% PF INJ 5 ML VIAL INFILTRATE (07:55)
[2022-12-01 08:00] VITALS: BP 154/63; PULSE 70; RESP 16; O2SAT 96
--- NOTE | 2022-12-01 08:00 | W.PM.PROC2 ---
Procedure Note - Detailed Date of Procedure 12/01/22 Pre-op Diagnosis Lumbar Spondylosis w/o Myelopathy or Radiculopathy, Chronic Low Back Pain Post-op Diagnosis Same Procedure Performed Bilateral L3, L4, L5 Medial branch/Dorsal Ramus blocks under Fluoroscopy (#2) Surgeon Ambrose Kitchen MD Anesthesia Local Description of Procedure INFORMED CONSENT: Risks, benefits and alternatives to the procedure were discussed in detail with the patient who expressed explicit understanding and consent to proceed. Patient was informed verbally and in written form regarding the risks associated with the procedure including the low risk of serious infection, bleeding/bruising, allergic reaction, nerve or organ injury, paralysis, procedural site pain or discomfort, worsening pain and/or mobility, failure to treat and/or disfigurement. The patient expressed explicit understanding and consent to proceed. All materials required for the procedure were available prior to procedure start. Site and side were marked prior to procedure and confirmed in the presence of the patient. PROCEDURE IN DETAIL: The patient was brought to the procedural suite and placed in the prone position. Patient was made comfortable with use of pillows under the head/chest, hips and ankles. Skin overlying the injection site on the affected side(s) was prepared broadly with ChloraPrep applicator and draped in a sterile manner. Aseptic technique was used throughout. The endplates of the vertebral bodies at the site(s) of interest were aligned in the AP view. Ipsilateral oblique angulation was utilized to optimize visualization of the intersection between the superior articulating process and transverse process at each target site. Local anesthesia was established by infiltration with approximately 5 mL of 1% lidocaine via a 1-1/2 inch 27-gauge needle. A 25-gauge 3.5 inch Quincke spinal needle was advanced until the needle tip contacted periosteum at the target site, right L3. Lateral view was utilized to confirm the appropriate placement of the needle tip just anterior to the facet line and superior to the pedicle. In the Lateral view, 0.25 mL of Omnipaque 300 contrast medium was injected after negative aspiration for CSF, blood or other bodily fluid, showing appropriate extra-articular spread of contrast without evidence of intravascular, foraminal or intrathecal placement. A 0.5 mL solution of 2.0% PF Lidocaine was injected after negative repeat aspiration. Appropriate spread of the injectate was confirmed with washout of previously injected contrast. No parasthesias were elicited. Needle was removed completely intact without difficulty. The same exact procedure was repeated for all remaining levels on the ipsilateral side, right L4, L5 medial branches/dorsal ramus, modified as necessary to accommodate for the new target location with identical findings and results and no evidence of complication. The same exact procedure was repeated for all remaining levels on the contralateral side, left L3, L4, L5 medial branches/dorsal ramus, modified as necessary to accommodate for the new target location with identical findings and results and no evidence of complication. Images were saved and documented in the patient chart. Patient's skin was cleaned and sterile bandage applied. The patient tolerated the procedure well. The patient was transported to the recovery area in stable condition where they were observed for an appropriate amount of time prior to discharge, without evidence of complication. Patient was instructed on the appropriate completion of a pain diary over the next 12-24 hours. The patient was instructed to avoid excessive activity for the next 48 hours, including climbing and frequent use of stairs. Showers only for 48 hours. They were instructed not to drive or operate heavy machinery for 24 hours. They are to monitor for severe headaches, fevers, chills, night sweats, erythema/swelling at the site or any
== END 2022-12-01 08:27 | disposition home or self-care (01) ==
PROVIDERS: PCP Family Medicine; Visit Provider Anesthesiology Pain Medicine
PROC: (CPT 64493; principal; 2022-12-01 07:30)
DX: M47.816 Spondylosis without myelopathy or radiculopathy, lumbar region (principal)
CPT/HCPCS: 64493 ×2; 99199

== ENCOUNTER 2022-12-14 07:58 | Outpatient (CLI) | payer MEDICARE, SELFPAY ==
[2022-12-14 08:29] LABS: INR 1.1; Prothrombin Time 14.4 Seconds (11.1-14.7)
== END 2022-12-14 07:59 | disposition home or self-care (01) ==
PROVIDERS: PCP Family Medicine; Visit Provider Anesthesiology Pain Medicine
DX: Z79.01 Long term (current) use of anticoagulants (principal)
CPT/HCPCS: 36415; 85610; 85730

== ENCOUNTER 2022-12-15 06:54 | Day surgery (SDC) | payer MEDICARE, SELFPAY ==
[2022-12-14 14:52] VITALS: BMI 29.6
--- NOTE | ~2022-12-15 | XR_ITS ---
EXAMINATION: XR fluoroscopy no charge DATE: 12/15/2022 7:20 CDT INDICATION: ANJALI L3,4,5 MEDIAL BRANCH/DORSAL RAMUS THERMAL RADIO FREQ ABL . TECHNIQUE: 10 fluoroscopic images of the lumbar spine were obtained during bilateral L3, 4, 5 medial branch/dorsal ramus thermal radiofrequency ablation performed by the surgeon. I was not present in [facility] operating room. Fluoroscopy exposure time was 39.9 seconds. Air Kerma 50.95 mGy. COMPARISON: None FINDINGS: Radiopaque devices terminate at the level of the left and right L3-4, L4-5, and L5-S1 disc spaces, sl ightly distal to the corresponding neural foramen. No unexpected radiopaque foreign body. IMPRESSION: Fluoroscopic documentation of bilateral L3, 4, and 5 medial branch/dorsal ramus thermal radiofrequenc y ablation. Please refer to the operative note for complete procedural details . Reviewed, dictated and finalized at location K. IMPRESSION: Fluoroscopic documentation of bilateral L3, 4, and 5 medial branch/dorsal ramus thermal radiofrequency ablation. Please refer to the operative note for comple te procedural details .
[2022-12-15 06:30] VITALS: BP 154/82; PULSE 75; RESP 18; TEMP 37; O2SAT 97; BMI 29.8
--- NOTE | 2022-12-15 07:07 | WPDANESEPPF ---
Anes - Initial Pre Proc Eval Procedure: Operation Date: 12/15/22 07:30 Proposed Procedures p Bilateral L3, L4, L5 Medial Branch/Dorsal Ramus Thermal Radio Frequency Ablation - Ambrose Kitchen MD Date/Time: 12/15/22 07:07 Surgeon: Ambrose Kitchen MD Pre Op Diagnosis: Lumbosacral Spondylosis Patient Data Age: 72 Gender: M Height: 1.85 m Weight: 102.6 kg Last Vital Signs Temp 37.0 C 12/15/22 06:30 Pulse 75 12/15/22 06:30 Resp 18 12/15/22 06:30 BP 154/82 H 12/15/22 06:30 Pulse Ox 97 12/15/22 06:30 O2 Del Method Room Air 12/15/22 06:30 Allergies Allergy/AdvReac Type Severity Reaction Status Date / Time No Known Allergies Allergy Verified 12/15/22 06:17 Home Medications Medication Instructions Recorded Confirmed Type insulin glargine 100 unit/mL (3 45 unit subcut QAM 05/28/19 12/15/22 History mL) subcutaneous pen (Lantus Solostar U-100 Insulin) levothyroxine 175 mcg tablet 175 mcg PO QAM 05/28/19 12/15/22 History metformin 500 mg tablet,extended 1,000 mg PO BID 05/28/19 12/15/22 History release 24hr insulin lispro 100 unit/mL See Rx Instructions .Route .COMPLEX 05/29/19 12/15/22 History subcutaneous pen (Humalog KwikPen (U-100) Insulin) mecobalamin (vitamin B12) 1,000 1,000 mcg sublingual QAM 09/16/20 12/15/22 History mcg disintegrating tablet,sublingual insulin glargine 100 unit/mL (3 85 unit subcut HS 02/11/21 12/15/22 History mL) subcutaneous pen (Lantus Solostar U-100 Insulin) iodcijzt-wima-mxtdn acid 400 1 tablet PO DAILY 02/13/22 12/15/22 History mcg-lycopene 600 mcg-ginkgo 120 mg tablet hydrochlorothiazide 25 mg tablet 25 mg PO QAM #90 tabs 05/25/22 12/15/22 Rx warfarin 5 mg tablet See Rx Instructions .Route 06/03/22 12/15/22 Rx .COMPLEX #60 tabs celecoxib 200 mg capsule 200 mg PO BID #180 caps 06/08/22 12/15/22 Rx omeprazole 20 mg capsule,delayed 20 mg PO BID 06/08/22 12/15/22 History release atenolol 50 mg tablet 50 mg PO QAM #90 tabs 08/13/22 12/15/22 Rx potassium chloride 10 mEq See Rx Instructions .Route 08/13/22 12/15/22 Rx tablet,extended release .COMPLEX #270 tabs fenofibrate micronized 200 mg See Rx Instructions .Route 08/14/22 12/15/22 Rx capsule .COMPLEX #90 caps gabapentin 300 mg capsule 300 mg PO BID 09/23/22 12/15/22 History semaglutide 1 mg/dose (4 mg/3 mL) 1 mg subcut WEEKLY 10/16/22 12/15/22 History subcutaneous pen injector (Ozempic) rosuvastatin 10 mg tablet 10 mg PO HS #90 tabs 11/02/22 12/15/22 Rx warfarin 6 mg tablet See Rx Instructions .Route 11/02/22 12/15/22 Rx .COMPLEX #30 tabs tramadol 50 mg tablet 50 mg PO Q6H PRN pain #120 tabs 12/06/22 12/15/22 Rx Patient hx anesthesia problems: none Family hx anesthesia problems: none Results Review: All pre-operative results and documents have been reviewed as part of the pre-operative evaluation. [facility] Past Medical History Medical History BMI 29.0-29.9,adult BMI 30.0-30.9,adult BMI 31.0-31.9,adult BMI 32.0-32.9,adult Colon cancer screening Dysphagia Essential hypertension Fever Gastroesophageal reflux disease without esophagitis History of CVA (cerebrovascular accident) History of DVT (deep vein thrombosis) Long-term anticoagulation History of DVT in adulthood Hyperlipidemia Hypothyroidism Insulin dependent diabetes mellitus Left carotid artery occlusion Nephrolithiasis Obstructive sleep apnea Type 2 diabetes mellitus without complication, without long-term current use of insulin Surgical History Surgical History H/O lithotripsy History of biopsy of bladder History of cataract extraction History of knee replacement Partial right knee replacement Status post hip replacement Left side Status post placement of ureteral stent Right side Family History Family History
--- NOTE | 2022-12-15 07:09 | WPDHPUPDATE1 ---
History and Physical Update Update Date/Time: 12/15/22 07:09 History and Physical has been reviewed, including an updated exam of the patient. There are NO changes in the patient's condition. Risks, benefits, and alternatives have been discussed and questions answered. Patient agrees to proceed with procedure.
[2022-12-15] MEDS: LACTATED RINGERS 1,000 ML 30 ML IV CONT (07:11)
[2022-12-15] MEDS: LIDOCAINE HCL 2% PF INJ 5 ML VIAL 13 ML INFILTRATE (07:45)
[2022-12-15] MEDS: LIDOCAINE HCL 1% PF INJ 5 ML VIAL 10 ML XX (07:50)
[2022-12-15 08:29] VITALS: BP 147/82; PULSE 94; RESP 18; O2SAT 97
--- NOTE | 2022-12-15 08:35 | W.PM.PROC2 ---
Procedure Note - Detailed Date of Procedure 12/15/22 Pre-op Diagnosis Lumbosacral Spondylosis, Chronic Low Back Pain Post-op Diagnosis Same Procedure Performed Bilateral L3, L4, L5 medial branch/dorsal ramus thermal RF ablation with fluoroscopy. Surgeon Ambrose Kitchen MD Anesthesia MAC (IV Moderate Sedation) and Local Description of Procedure INFORMED CONSENT: Risks, benefits and alternatives to the procedure were discussed in detail with the patient who expressed explicit understanding and consent to proceed. Patient was informed verbally and in written form regarding the risks associated with the procedure including the low risk of serious infection, bleeding/bruising, allergic reaction, nerve or organ injury, paralysis, procedural site pain or discomfort, worsening pain and/or mobility, failure to treat and/or disfigurement. The patient expressed explicit understanding and consent to proceed. All materials required for the procedure were available prior to procedure start. Site and side were marked prior to procedure and confirmed in the presence of the patient. PROCEDURE IN DETAIL: The patient was brought to the procedural suite and placed in the prone position. Patient was made comfortable with use of pillows under the head/chest, hips and ankles. Skin overlying the injection site on the affected side(s) was prepared broadly with ChloraPrep applicator and draped in a sterile manner. Aseptic technique was used throughout. The endplates of the vertebral bodies at the site(s) of interest were aligned in the AP view. Ipsilateral oblique angulation was utilized to optimize visualization of the intersection between the superior articulating process and transverse process at each target site. Local anesthesia was established by infiltration with approximately 5 mL of 1% lidocaine via a 1-1/2 inch 27-gauge needle. An 16-gauge 150mm [employer] RF needle with curved 10mm active tip was advanced in the AP view until the needle tip contacted the periosteum at the target site, right L3 medial branch. Lateral view was utilized to adjust and confirm the appropriate placement of the needle tip just anterior to the facet line, superior to the pedicle and posterior to the foramen. The appropriately-sized RF cannula was inserted into the RF needle and motor stimulation performed with no subjective or objective evidence of recruited muscle activity with stimulation up to 3.0 volts at a frequency of 2Hz. 1.0 mL of 2.0% PF lidocaine was injected after negative aspiration. Grounding electrode in place and functioning. After a 90s pause, lesioning was performed to 90 degrees centigrade for 90s ensuring lack of symptoms in the extremity throughout. Needle was rotated 180 degrees and lesioning repeated in a similar manner. Patient tolerated this well. No parasthesias were elicited. Needle was removed completely intact without difficulty. The same procedure was repeated for all intended levels/ structures on the ipsilateral side, right L4, L5 medial branch/dorsal ramus with identical methodology, modified to compensate for new location, with similar results and no evidence of complication. The same exact procedure was repeated for all remaining levels on the contralateral side, left L3, L4, L5 medial branches/dorsal ramus, modified as necessary to accommodate for the new target location with identical findings/results and no evidence of complication. Images were saved and documented in the patient chart. Patient's skin was cleansed and sterile bandage applied. The patient tolerated the procedure well. The patient was transported to the recovery area in stable condition where they were observed for an appropriate amount of time prior to discharge, without evidence of complication. The patient was instructed to avoid excessive activity for the next 48 hours, including climbing and frequent use of stairs. Showers only for 48 hours. They were instructed not to drive or operate heavy [employer]
--- NOTE | 2022-12-15 08:36 | WPDANESPN ---
Anes - Prog Note Post-Op Date/Time: 12/15/22 08:36 Cardiovascular status: normal Respiratory status: normal Airway patency: baseline Mental status: baseline Post-Op hydration status: normal Vital Signs: Last Vital Signs Temp 37.0 C 12/15/22 06:30 Pulse 75 12/15/22 06:30 Resp 18 12/15/22 06:30 BP 154/82 H 12/15/22 06:30 Pulse Ox 97 12/15/22 06:30 O2 Del Method Room Air 12/15/22 06:30 Pain Score (VAS): 0/10 Patient Feedback: Patient satisfied with anesthetic care.
[2022-12-15] MEDS: BUPivacaine HCL 0.5% 10 ML AMP 5 ML INFILTRATE (08:37)
[2022-12-15 08:39] VITALS: BP 151/84; PULSE 81; RESP 14; O2SAT 95
[2022-12-15 08:49] VITALS: BP 143/71; BP 148/77; PULSE 71; PULSE 76; RESP 14; O2SAT 96; O2SAT 97
== END 2022-12-15 09:19 | disposition home or self-care (01) ==
PROVIDERS: PCP Family Medicine; Visit Provider Anesthesiology Pain Medicine
PROC: (CPT 64635; principal; 2022-12-15 07:30)
DX: M47.817 Spondylosis without myelopathy or radiculopathy, lumbosacral region (principal); M54.59 Other low back pain
CPT/HCPCS: 64635 ×2; 99199

== ENCOUNTER 2023-01-27 19:26 | Inpatient (IN) | payer MEDICARE, SELFPAY ==
[2023-01-27] VITALS (8 sets, daily range): BP systolic 113–155; BP diastolic 65–82; PULSE 109–122; RESP 20–137; TEMP 38.2; O2SAT 91–98; BMI 30.4
--- NOTE | ~2023-01-27 | XR_ITS ---
EXAMINATION: XR chest 1V portable INDICATION: Fever, altered mental status TECHNIQUE: Portable AP chest at 2007 hours COMPARISON: 02/26/2021 FINDINGS: There are minimal airspace opacities of the lung bases. No pleural effusion or pneumothorax . The cardiomediastinal silhouette is normal. IMPRESSION: 1. Minimal bibasilar airspace opacities, consistent with atelectasis versus pneumonia. Reviewed, dictated and finalized at location F. IMPRESSION: 1. Minimal bibasilar airspace opacities, consistent with atelectasis versus pne umonia.
--- NOTE | ~2023-01-27 | CT_ITS ---
EXAMINATION: CT abdomen pelvis w con INDICATION: Abdominal pain TECHNIQUE: Computed tomographic images of the abdomen and pelvis were obtained after the administrati on of 100 cc of Omnipaque 350 intravenous contrast. The dose-length product (DLP) was 1283.77 mGy-cm. Automated exposure control and iterative reconstruction technique were employed. COMPARISON: 07/23/2021 FINDINGS: Minimal dependent atelectasis is present in the lung bases. The heart size is normal. The l iver, spleen, pancreas, and adrenal glands are normal. Stones are present in the nondistended gallbla dder. Cysts of the kidneys measure up to 13 mm on the right. There is circumferential wall thickening of the urinary bladder. There is urothelial enhancement in the ureters and renal pelves. A moderate volume of colonic stool is present. No pathologically enlarged abdominal or pelvic lymph nodes are id entified. No free intraperitoneal gas or evidence of bowel obstruction. There is calcified atheroscle rosis of the aorta and many of the other arteries. There is moderate lumbar spondylosis. IMPRESSION: 1. Findings consistent with urinary tract infection and possible bilateral pyelonephritis. Reviewed, dictated and finalized at location F. IMPRESSION: 1. Findings consistent with urinary tract infection and possible bilateral pyel onephritis.
--- NOTE | 2023-01-27 19:40 | ECG_ITS ---
Measurements Intervals [place] Rate: 118 P: 63 MN: 156 QRS: 84 QRSD: 92 T: -1 QT: 309 QTc: 433 Interpretive Statements SINUS TACHYCARDIA POSSIBLE LEFT ATRIAL ENLARGEMENT LOW QRS VOLTAGE IN PRECORDIAL LEADS BORDERLINE ST-T WAVE ABNORMALITY- INFERIOR LEADS BASELINE ARTIFACT- AVL, V2-V6 ABNORMAL ECG COMPARED TO ECG 02/14/2022 10:38:34 [address] NOW PRESENT ST-T WAVE ABNORMALITY NOW PRESENT Electronically Signed On 01-27-2023 19:46:12 CDT by Shamar Freire D.O.
[2023-01-27 20:05] LABS: Basophils Percent Auto 0.5 % (0.2-1.2); Eosinophils Absolute Auto 0.2 K/mm3 (0-0.3); Eosinophils Percent Auto 1.7 % (0-4.4); Hematocrit 47.3 % (42.0-52.0); Hemoglobin 15.7 g/dL (14.0-18.0); Immature Granulocyte Absolute 0.05 K/mm3 (0.00-0.031); Immature Granulocyte Percent A 0.6 % (0-0.5); Lymphocytes Absolute Auto 1.01 K/mm3 (0.9-3.2); Lymphocytes Percent Auto 11.7 % (18.3-44.2); Mean Corpuscular HGB Conc 33.2 g/dl (32-36); Mean Corpuscular Hemoglobin 33.5 pg (26-34); Mean Corpuscular Volume 100.9 fl (80-100); Mean Platelet Volume 11.3 fl (7.4-10.4); Monocytes Absolute Auto 0.5 K/mm3 (0.1-0.6); Monocytes Percent Auto 5.6 % (2.6-8.5); Neutrophils Absolute Auto 6.9 K/mm3 (1.3-6.7); Neutrophils Percent Auto 79.9 % (45.5-73.1); Platelet Count Result 222 k/mm3 (150-375); Red Blood Count 4.69 M/mm3 (4.6-6.20); Red Cell Distribution Width 12.9 % (11.5-14.5); White Blood Count 8.6 K/mm3 (4.5-10.0)
[2023-01-27 20:08] LABS: Appearance Urine Cloudy (Clear); Bacteria Urine 4+ /hpf; Bilirubin Urine Negative (Negative); Blood Urine 3+ (Negative); Color Urine Yellow (Yellow); Glucose Urine UA 1+ mg/dL (Negative); Ketones Urine Trace mg/dL (Negative); Leukocyte Esterase Ur 2+ LEU/UL (Negative); Nitrate Urine Negative (Negative); Protein Urine 2+ mg/dL (Negative); RBC Urine >100 /hpf (0-2); Specific Grav Ur 1.015 (1.001-1.035); Squamous Epithelial Cell Urine None seen /hpf (Few); WBC Urine >100 /hpf; pH Urine 7.5 (5.0-9.0)
[2023-01-27 20:10] LABS: Add Urine Microscopic? YES
[2023-01-27 20:14] LABS: INR 2.5; Prothrombin Time 28.8 Seconds (11.1-14.7)
[2023-01-27 20:15] LABS: Partial Thromboplastin Time 39.5 SECONDS (22.3-36.8)
[2023-01-27 20:24] LABS: Lactic Acid Reflex 4.3 mmol/L (0.7-2.0)
[2023-01-27 20:25] LABS: Alanine Aminotransferase 55 U/L (6-50); Albumin Level 3.8 g/dL (3.5-5.1); Alkaline Phosphatase 60 U/L (38-126); Anion Gap 8 mmol/L (8-16); Aspartate Amino Transferase 68 U/L (17-59); Bilirubin,Total 1.2 mg/dL (0.2-1.3); Blood Urea Nitrogen 11 mg/dL (9-20); CRP 5.6 mg/dL (<1.0); Calcium 9.4 mg/dL (8.4-10.2); Carbon Dioxide 23 mmol/L (22-30); Chloride 103 mmol/L (98-107); Estimated CRCL calculation 62 ml/min; Estimated Glomerular Filt Rate 59; Glucose 206 mg/dL (65-110); Potassium 3.6 mmol/L (3.4-5.0); Sodium 134 mmol/L (137-145)
[2023-01-27] MEDS: SODIUM CHLORIDE 0.9% IV 1,000 ML 999 ML IV CONT ×3 (20:51→22:11)
[2023-01-27] MEDS: ACETAMINOPHEN 500 MG TABLET 1000 MG PO (20:57)
[2023-01-27 21:37] LABS: Influenza A QL RT-PCR Negative (Negative); Influenza B QL RT-PCR Negative (Negative); SARS-CoV-2 RNA PCR Negative (Negative)
[2023-01-27 21:39] LABS: Procalcitonin 3.3 ng/mL
[2023-01-27 21:50] LABS: Troponin I < 0.012 ng/mL (0.000-0.034)
[2023-01-27] MEDS: SODIUM CHLORIDE 0.9% IV 500 ML 999 ML IV CONT (22:11)
--- NOTE | 2023-01-27 22:31 | ED.GENADULT ---
HPI - General Adult General Chief complaint: Fever Stated complaint: shivering /confused Time Seen by Provider: 01/27/23 20:16 History of Present Illness HPI narrative: Patient 72-year-old gentleman who presents the emergency department with chief complaint of fever. The patient reports he has history of bladder cancer noticed that his urine has been cloudy and has had frequent urination. The patient reports he had urinary tract infections before in the past patient reports he is receiving BCG treatment for the bladder cancer. Patient reports that today he started having a fever at home felt hot and felt very weak. Related Data Home Medications Medication Instructions Recorded Confirmed insulin glargine 100 unit/mL (3 45 unit subcut QAM 05/28/19 01/19/23 mL) subcutaneous pen (Lantus Solostar U-100 Insulin) levothyroxine 175 mcg tablet 175 mcg PO QAM 05/28/19 01/19/23 metformin 500 mg tablet,extended 1,000 mg PO BID 05/28/19 01/19/23 release 24hr insulin lispro 100 unit/mL See Rx Instructions .Route .COMPLEX 05/29/19 01/19/23 subcutaneous pen (Humalog KwikPen (U-100) Insulin) mecobalamin (vitamin B12) 1,000 1,000 mcg sublingual QAM 09/16/20 01/19/23 mcg disintegrating tablet,sublingual insulin glargine 100 unit/mL (3 85 unit subcut HS 02/11/21 01/19/23 mL) subcutaneous pen (Lantus Solostar U-100 Insulin) dwgwiylq-onse-xyjhj acid 400 1 tablet PO DAILY 02/13/22 01/19/23 mcg-lycopene 600 mcg-ginkgo 120 mg tablet omeprazole 20 mg capsule,delayed 20 mg PO BID 06/08/22 01/19/23 release semaglutide 1 mg/dose (4 mg/3 mL) 1 mg subcut WEEKLY 10/16/22 01/19/23 subcutaneous pen injector (Ozempic) Allergies Allergy/AdvReac Type Severity Reaction Status Date / Time No Known Allergies Allergy Verified 01/27/23 19:50 Review of Systems Review of Systems: A 10 system review of systems was completed on the patient and is negative except for what is stated in the HPI. Nursing and ancillary documentation was reviewed. [facility] Past Medical History Medical History BMI 29.0-29.9,adult BMI 30.0-30.9,adult BMI 31.0-31.9,adult BMI 32.0-32.9,adult Colon cancer screening Dysphagia Essential hypertension Fever Gastroesophageal reflux disease without esophagitis History of CVA (cerebrovascular accident) History of DVT (deep vein thrombosis) Long-term anticoagulation History of DVT in adulthood Hyperlipidemia Hypothyroidism Insulin dependent diabetes mellitus Left carotid artery occlusion Nephrolithiasis Obstructive sleep apnea Type 2 diabetes mellitus without complication, without long-term current use of insulin Surgical History Surgical History H/O lithotripsy History of biopsy of bladder History of cataract extraction History of knee replacement Partial right knee replacement Status post hip replacement Left side Status post placement of ureteral stent Right side Family History Family History Sibling No problems noted. Father Cancer Mother No problems noted. Sibling No problems noted. Grandparent Diabetes mellitus Social History Social History Social History: The patient lives with his sleeve in girlfriend. The patient quit smoking 40+ years ago. The patient has 2 children. His son is the durable power employment attorney for healthcare. The patient is retired from [employer]. 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 Patient occasionally has a beer on the weekend. Maybe 3 or 4 beers a week. Patient denies any marijuana or illicit drugs. Smoking packs per day: 1 Smoking cigarettes per day: 20.0 Years smoked: 15 Smoking pack-years: 15.00 Smoking status: Former smoker Tobacco type: cigarett
--- NOTE | 2023-01-27 22:34 | PM.IMHP ---
H&P: HPI History of Present Illness Date/Time: 01/27/23 22:34 Chief Complaint: ALTERED MENTAL STATUS Narrative: THIS IS A 72-YEAR-OLD MALE WITH PAST MEDICAL HISTORY SIGNIFICANT BLADDER CANCER, ATRIAL FIBRILLATION RATE CONTROLLED ANTICOAGULATED, INSULIN-DEPENDENT DIABETES MELLITUS, PERIPHERAL DIABETIC NEUROPATHY. PATIENT WAS BROUGHT TO THE EMERGENCY ROOM DUE TO ALTERED MENTAL STATUS, DELIRIUM, DISORIENTATION, CONFUSION, RIGORS JUST PRIOR TO COMING TO THE EMERGENCY ROOM PATIENT HAS NOT BEEN FEELING WELL IN THE LAST 2-3 DAYS WELL HAS HAD PAIN AND BURNING WITH URINATION, GENERALIZED MALAISE, FATIGUE, CHILLS. PRELIMINARY WORKUP WAS SIGNIFICANT FOR A CHEST X-RAY WAS REPORTED EXAMINATION: XR chest 1V portable INDICATION: Fever, altered mental status TECHNIQUE: Portable AP chest at 2007 hours COMPARISON: 02/26/2021 FINDINGS: There are minimal airspace opacities of the lung bases. No pleural effusion or pneumothorax. The cardiomediastinal silhouette is normal. IMPRESSION: 1. Minimal bibasilar airspace opacities, consistent with atelectasis versus pneumonia. EXAMINATION: CT abdomen pelvis w con INDICATION: Abdominal pain TECHNIQUE: Computed tomographic images of the abdomen and pelvis were obtained after the administration of 100 cc of Omnipaque 350 intravenous contrast. The dose-length product (DLP) was 1283.77 mGy-cm. Automated exposure control and iterative reconstruction technique were employed. COMPARISON: 07/23/2021 FINDINGS: Minimal dependent atelectasis is present in the lung bases. The heart size is normal. The liver, spleen, pancreas, and adrenal glands are normal. Stones are present in the nondistended gallbladder. Cysts of the kidneys measure up to 13 mm on the right. There is circumferential wall thickening of the urinary bladder. There is urothelial enhancement in the ureters and renal pelves. A moderate volume of colonic stool is present. No pathologically enlarged abdominal or pelvic lymph nodes are identified. No free intraperitoneal gas or evidence of bowel obstruction. There is calcified atherosclerosis of the aorta and many of the other arteries. There is moderate lumbar spondylosis. IMPRESSION: 1. Findings consistent with urinary tract infection and possible bilateral pyelonephritis. Review of Systems Review of Systems: RIGORS, CONFUSION, DELIRIUM, DISORIENTATION, CHILLS. Constitutional: Constitutional: Reports chills, Reports malaise and Reports weakness Eyes: Eyes: Denies change in vision ENT: Denies dysphagia and Denies odynophagia Cardiovascular: Cardiovascular: Denies chest pain, Denies radiating jaw, neck or arm pain and Denies palpitations Respiratory: Respiratory: Denies cough, Denies excessive phlegm production and Denies dyspnea Gastrointestinal: Gastrointestinal: Denies abdominal pain, Denies dyspepsia, Denies heartburn, Denies diarrhea, Denies nausea and Denies vomiting Genitourinary: Genitourinary: Reports dysuria Musculoskeletal: Musculoskeletal: Reports back pain and Reports muscle weakness Integumentary/Breasts: Skin/Breast: Denies rash Neurologic: Denies vertigo, Denies dizziness, Denies focal weakness and Denies Sensory deficit (Neuro) Psychiatric: Psychiatric: Reports no additional psychiatric complaints and Reports as per HPI Endocrine: Endocrine: Denies cold intolerance, Denies fatigue, Denies flushing, Denies heat intolerance, Denies polyphagia, Denies polydipsia and Denies palpitations Hematologic/Lymphatic: Hematologic/Lymphatic: Reports no additional hematologic/lymphatic complaints and Reports as per HPI Allergic/Immunologic: Allergic/Immunologic: Reports no additional allergic/immunologic complaints and Reports as per HPI PMFSH Past Medical History Medical History BMI 29.0-29.9,adult BMI 30.0-30.9,adult BMI 31.0-31.9,adult BMI 32.0-32.9,adult Colon cancer screening Dysphagia Essential hyperten
[2023-01-27] MEDS: AZITHROMYCIN 500 MG/NS 250 ML 500 MG/250 ML BAG 250 MG IVPB (22:36)
[2023-01-27 23:02] LABS: Reflex Lactic Acid Yes or No Add Lactic
--- NOTE | 2023-01-27 23:52 | ADMGEN ---
This patient, Roscoe Pérez Sr., was admitted to IMU Room 210-01. Patient/family oriented to hospital policies and general routines including ID bracelet, bed and alarms, visiting hours, pain management, procedures, bathroom and other care routines, personal items, smoking policy, room service/diet, and visiting hours. Information on how to activate the Rapid Response Team has been discussed. Patient/Family are encouraged to report perceived risks to care and to ask questions if they do not understand what they are told or what they should do.
[2023-01-28] VITALS (17 sets, daily range): BP systolic 108–153; BP diastolic 63–75; PULSE 72–107; RESP 16–20; TEMP 36.1–36.6; O2SAT 96–99
[2023-01-28 00:34] LABS: Lactic Acid 2.1 mmol/L (0.7-2.0)
[2023-01-28] MEDS: SODIUM CHLORIDE 0.9% IV 1,000 ML 125 ML IV CONT ×2 (01:29→09:35)
[2023-01-28 05:23] LABS: Basophils Percent Auto 0.2 % (0.2-1.2); Eosinophils Percent Auto 0.3 % (0-4.4); Hematocrit 42.3 % (42.0-52.0); Hemoglobin 13.8 g/dL (14.0-18.0); Immature Granulocyte Absolute 0.13 K/mm3 (0.00-0.031); Immature Granulocyte Percent A 0.9 % (0-0.5); Lymphocytes Percent Auto 9.2 % (18.3-44.2); Mean Corpuscular HGB Conc 32.6 g/dl (32-36); Mean Corpuscular Volume 104.2 fl (80-100); Mean Platelet Volume 11.7 fl (7.4-10.4); Monocytes Absolute Auto 1.3 K/mm3 (0.1-0.6); Neutrophils Absolute Auto 11.3 K/mm3 (1.3-6.7); Neutrophils Percent Auto 80.4 % (45.5-73.1); Platelet Count Result 192 k/mm3 (150-375); Red Blood Count 4.06 M/mm3 (4.6-6.20); Red Cell Distribution Width 13.1 % (11.5-14.5); White Blood Count 14.1 K/mm3 (4.5-10.0)
[2023-01-28 05:34] LABS: Alanine Aminotransferase 56 U/L (6-50); Alkaline Phosphatase 44 U/L (38-126); Anion Gap 4 mmol/L (8-16); Aspartate Amino Transferase 57 U/L (17-59); Bilirubin,Total 0.9 mg/dL (0.2-1.3); Blood Urea Nitrogen 11 mg/dL (9-20); Calcium 8.4 mg/dL (8.4-10.2); Carbon Dioxide 23 mmol/L (22-30); Chloride 109 mmol/L (98-107); Estimated CRCL calculation 74 ml/min; Estimated Glomerular Filt Rate > 60; Glucose 179 mg/dL (65-110); Potassium 3.6 mmol/L (3.4-5.0); Sodium 136 mmol/L (137-145)
[2023-01-28] MEDS: LEVOTHYROXINE SODIUM 75 MCG TABLET PO (05:44)
[2023-01-28] MEDS: LEVOTHYROXINE SODIUM 100 MCG TABLET PO (05:44)
[2023-01-28] MEDS: INSULIN GLARGINE (*BKC) 100 UNITS/ML 45 UNITS SUB-Q (09:21)
[2023-01-28] MEDS: CYANOCOBALAMIN 1,000 MCG TABLET 1000 MCG PO (09:22)
[2023-01-28] MEDS: GABAPENTIN 300 MG CAPSULE PO ×2 (09:22→17:10)
[2023-01-28] MEDS: atenoloL 50 MG TABLET PO (09:22)
[2023-01-28] MEDS: CELECOXIB 200 MG CAPSULE PO ×2 (09:22→17:10)
[2023-01-28] MEDS: PANTOPRAZOLE 40 MG TABLET PO ×2 (09:22→17:11)
[2023-01-28 10:19] LABS: INR 2.1
[2023-01-28 13:13] LABS: Glucose Point of Care 169 mg/dl (65-105)
[2023-01-28 13:55] LABS: Glucose Point of Care 265 mg/dl (65-105)
--- NOTE | 2023-01-28 16:19 | PM.IMPN ---
Progress Note: A&P Assessment and Plan (1) Sepsis: Code(s): A41.9 - Sepsis, unspecified organism Status: Acute Assessment and Plan: Patient with sepsis present on admission with fever, rigors, AMS, lactic acidosis and tachycardia. Blood pressure remained stable but did receive 3L NS in ED. Source is UTI with pyelonephritis and now bacteremia. UA consistent with UTI. Urine culture pending. Blood cultures (2 of 2) growing Gram-negative bacilli. Was given a dose of Rocephin 1 g in the ED. no history of ESBL. Patient has had clinical improvement with the Rocephin. Continue Rocephin and advanced dose to 2 g daily. Follow-up on culture results. (2) Acute pyelonephritis: Code(s): N10 - Acute pyelonephritis Status: Acute Assessment and Plan: As above. (3) Lung infiltrate: Code(s): R91.8 - Other nonspecific abnormal finding of lung field Status: Acute Assessment and Plan: Chest x-ray shows minimal bibasilar airspace opacities consistent with atelectasis versus pneumonia. CT of the abdomen shows minimal dependent atelectasis in the lung bases. Patient is on room air. Suspect chest x-ray findings atelectasis. Will stop azithromycin (4) Bladder cancer: Qualifiers: Bladder location: unspecified site Qualified Code(s): C67.9 - Malignant neoplasm of bladder, unspecified Code(s): C67.9 - Malignant neoplasm of bladder, unspecified Status: Acute Assessment and Plan: Patient with a history of bladder cancer. He did have a cystoscopy with bladder biopsy and fulguration in October. 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 He has just finished BCG x3 treatments. Urology has been informed patient's admission. (5) Insulin dependent diabetes mellitus: Status: Chronic Assessment and Plan: The patient's blood glucose was reviewed on 01/28 Glucose remains well controlled. Continue AccuCheks covering with sliding scale. Hypoglycemia protocol available as needed. Continue current medications. Check A1c. Watch for lows. 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 INR was therapeutic on admission and remains therapeutic. Continue daily INR. Adjust Coumadin accordingly. (7) ISHMAEL (obstructive sleep apnea): Code(s): G47.33 - Obstructive sleep apnea (adult) (pediatric) Status: Acute Assessment and Plan: Hospital BiPAP use ordered. Patient is tolerating this. Continue BiPAP at night, with naps and as needed. (8) Vertebrogenic low back pain: Code(s): M54.51 - Vertebrogenic low back pain Status: Acute Assessment and Plan: Patient with chronic low back pain. Encourage patient to be out of bed. Continue to follow. (9) Gastroesophageal reflux disease without esophagitis: Code(s): K21.9 - Gastro-esophageal reflux disease without esophagitis Status: Acute Assessment and Plan: Stable. EGD in October showing esophageal stricture hat was dilated. Continue PPI. Subjective Date/time seen: 01/28/23 16:19 Interval history: 72yo male with bladder cancer, AFib, ISHMAEL and DM here for fever and rigors. Patient feels better than yesterday. He states he has very little memory of the events leading up to his hospitalization. Family in the room states that the patient did not fall prior to admission. Patient denies chest pain or shortness of breath. No nausea or vomiting. He has chronic back pain but no change. He continues to have dysuria but is better from yesterday. Exam Narrative: Tm 100.7 97.8 139/66 77 18 96% ra Gen - NARD Chest - CTA bilaterally, nml RR CV - RRR S1/S2. Tele showing no significant dysrhythmias Abd - Soft, NT/ND, Positive B
[2023-01-28] MEDS: INSULIN ASPART (*BKC) 100 UNITS/ML SUB-Q (17:11)
[2023-01-28 17:16] LABS: Glucose Point of Care 234 mg/dl (65-105)
[2023-01-28] MEDS: WARFARIN (*PBKC) 5 MG TABLET BY MOUTH (17:18)
[2023-01-28] MEDS: SODIUM CHLORIDE 0.9% IV 1,000 ML 70 ML IV CONT (17:38)
[2023-01-28] MEDS: ROSUVASTATIN 10 MG TABLET PO (20:55)
[2023-01-28] MEDS: cefTRIAXone 2 GM/NS 100 ML 2 GM/100 ML BAG IVPB (20:56)
[2023-01-28 21:07] LABS: Glucose Point of Care 168 mg/dl (65-105)
[2023-01-29] VITALS (14 sets, daily range): BP systolic 151–165; BP diastolic 71–102; PULSE 66–89; RESP 16–18; TEMP 36.2–36.6; O2SAT 93–98
[2023-01-29 05:06] LABS: Basophils Percent Auto 0.6 % (0.2-1.2); Eosinophils Absolute Auto 0.3 K/mm3 (0-0.3); Eosinophils Percent Auto 4.1 % (0-4.4); Hematocrit 41.3 % (42.0-52.0); Hemoglobin 13.6 g/dL (14.0-18.0); Immature Granulocyte Absolute 0.02 K/mm3 (0.00-0.031); Immature Granulocyte Percent A 0.3 % (0-0.5); Lymphocytes Absolute Auto 1.14 K/mm3 (0.9-3.2); Lymphocytes Percent Auto 16.2 % (18.3-44.2); Mean Corpuscular HGB Conc 32.9 g/dl (32-36); Mean Corpuscular Hemoglobin 33.9 pg (26-34); Mean Platelet Volume 11.2 fl (7.4-10.4); Monocytes Absolute Auto 0.7 K/mm3 (0.1-0.6); Monocytes Percent Auto 9.4 % (2.6-8.5); Neutrophils Absolute Auto 4.9 K/mm3 (1.3-6.7); Neutrophils Percent Auto 69.4 % (45.5-73.1); Platelet Count Result 178 k/mm3 (150-375); Red Blood Count 4.01 M/mm3 (4.6-6.20); Red Cell Distribution Width 13.2 % (11.5-14.5)
[2023-01-29 05:13] LABS: INR 1.9; Prothrombin Time 22.6 Seconds (11.1-14.7)
[2023-01-29 05:22] LABS: Alanine Aminotransferase 49 U/L (6-50); Albumin Level 3.2 g/dL (3.5-5.1); Alkaline Phosphatase 46 U/L (38-126); Anion Gap 5 mmol/L (8-16); Aspartate Amino Transferase 43 U/L (17-59); Bilirubin,Total 0.6 mg/dL (0.2-1.3); Blood Urea Nitrogen 13 mg/dL (9-20); Carbon Dioxide 24 mmol/L (22-30); Chloride 111 mmol/L (98-107); Estimated CRCL calculation 74 ml/min; Estimated Glomerular Filt Rate > 60; Glucose 147 mg/dL (65-110); Potassium 3.8 mmol/L (3.4-5.0); Sodium 140 mmol/L (137-145)
[2023-01-29 05:56] LABS: Hemoglobin A1C 6.9 % (<5.7)
[2023-01-29] MEDS: LEVOTHYROXINE SODIUM 75 MCG TABLET PO (06:16)
[2023-01-29] MEDS: LEVOTHYROXINE SODIUM 100 MCG TABLET PO (06:16)
[2023-01-29] MEDS: SODIUM CHLORIDE 0.9% IV 1,000 ML 70 ML IV CONT (06:17)
[2023-01-29 08:04] LABS: Glucose Point of Care 145 mg/dl (65-105)
[2023-01-29] MEDS: CYANOCOBALAMIN 1,000 MCG TABLET 1000 MCG PO (08:53)
[2023-01-29] MEDS: GABAPENTIN 300 MG CAPSULE PO ×2 (08:53→17:40)
[2023-01-29] MEDS: PANTOPRAZOLE 40 MG TABLET PO ×2 (08:53→17:40)
[2023-01-29] MEDS: atenoloL 50 MG TABLET PO (08:53)
[2023-01-29] MEDS: CELECOXIB 200 MG CAPSULE PO ×2 (08:53→17:40)
[2023-01-29] MEDS: INSULIN GLARGINE (*BKC) 100 UNITS/ML 45 UNITS SUB-Q ×2 (08:54→20:58)
[2023-01-29 09:12] LABS: Folic Acid 10.9 ng/mL (2.76->20)
[2023-01-29 12:04] LABS: Glucose Point of Care 225 mg/dl (65-105)
[2023-01-29] MEDS: INSULIN ASPART (*BKC) 100 UNITS/ML SUB-Q (12:22)
[2023-01-29] MEDS: WARFARIN (*PBKC) 5 MG TABLET BY MOUTH (17:40)
[2023-01-29 17:56] LABS: Glucose Point of Care 193 mg/dl (65-105)
--- NOTE | 2023-01-29 18:01 | PM.IMPN ---
Progress Note: A&P Assessment and Plan (1) Sepsis: Code(s): A41.9 - Sepsis, unspecified organism Status: Acute Assessment and Plan: Patient with sepsis present on admission with fever, rigors, AMS, lactic acidosis and tachycardia. Blood pressure remained stable but did receive 3L NS in ED. Source is UTI with pyelonephritis and now bacteremia. UA consistent with UTI. Urine culture growing EColi sensitive to Rocephin Blood cultures (2 of 2) growing EColi sensitivities pending. Was given a dose of Rocephin 1 g in the ED. no history of ESBL. Patient has had clinical improvement with the Rocephin. Continue Rocephin dose was advanced to 2 g daily. Follow-up on culture results. (2) Acute pyelonephritis: Code(s): N10 - Acute pyelonephritis Status: Acute Assessment and Plan: As above. (3) Lung infiltrate: Code(s): R91.8 - Other nonspecific abnormal finding of lung field Status: Acute Assessment and Plan: Chest x-ray shows minimal bibasilar airspace opacities consistent with atelectasis versus pneumonia. CT of the abdomen shows minimal dependent atelectasis in the lung bases. Patient is on room air. Suspect chest x-ray findings atelectasis. Azithromycin stopped. (4) Bladder cancer: Qualifiers: Bladder location: unspecified site Qualified Code(s): C67.9 - Malignant neoplasm of bladder, unspecified Code(s): C67.9 - Malignant neoplasm of bladder, unspecified Status: Acute Assessment and Plan: Patient with a history of bladder cancer. He did have a cystoscopy with bladder biopsy and fulguration in October. 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 He has just finished BCG x3 treatments. Urology has been informed patient's admission. (5) Insulin dependent diabetes mellitus: Status: Chronic Assessment and Plan: A1c 6.9. the patient's blood glucose was reviewed on 01/29 He takes lantus 45U in the morning and 85U at night. Glucose remains well controlled. He did not receive Lantus last night. Continue AccuCheks covering with sliding scale. Hypoglycemia protocol available as needed. Continue to monitor. Resume night time Lantus at lower dose. 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 INR was therapeutic on admission but dropped to 1.9 today. Continue current Coumadin dose for now Continue daily INR. Adjust Coumadin accordingly if INR remains subtherapeutic. (7) ISHMAEL (obstructive sleep apnea): Code(s): G47.33 - Obstructive sleep apnea (adult) (pediatric) Status: Acute Assessment and Plan: Hospital BiPAP use ordered. Patient is tolerating this. Continue BiPAP at night, with naps and as needed. (8) Vertebrogenic low back pain: Code(s): M54.51 - Vertebrogenic low back pain Status: Acute Assessment and Plan: Patient with chronic low back pain. Encourage patient to be out of bed. Continue to follow. (9) Gastroesophageal reflux disease without esophagitis: Code(s): K21.9 - Gastro-esophageal reflux disease without esophagitis Status: Acute Assessment and Plan: Stable. EGD in October showing esophageal stricture that was dilated. Continue PPI. Subjective Date/time seen: 01/29/23 18:01 Interval history: 72yo male with bladder cancer, AFib, ISHMAEL and DM here for fever and rigors. Patient feels tired. His back pain is about the same today. He has only minimal dysuria at this time. No shortness of breath. No dyspnea on exertion. No calf pain. He does feel sore in the chest when he attempts to get up out of bed. No pleuritic chest pain. He is not wearing the SCDs all the time when he is in bed. Exam Narrative: AF 97.
[2023-01-29 20:41] LABS: Glucose Point of Care 208 mg/dl (65-105)
[2023-01-29] MEDS: cefTRIAXone 2 GM/NS 100 ML 2 GM/100 ML BAG IVPB (20:56)
[2023-01-29] MEDS: ROSUVASTATIN 10 MG TABLET PO (20:57)
--- NOTE | 2023-01-29 22:28 | PC.NURSE ---
This patient, Roscoe Pérez , was transferred to [[facility] room 331 ] on 01/29/23 at 2215. Personal belongings sent with patient. Report given to [MATTHEW Daniel ]. Patient stable, alert and oriented. Appropriate documentation sent with patient.
--- NOTE | 2023-01-29 22:38 | ADMGEN ---
This patient, Roscoe Pérez , was transferred to [facility] Surg Room 331-01. Patient/family oriented to hospital policies and general routines including ID bracelet, bed and alarms, visiting hours, pain management, procedures, bathroom and other care routines, personal items, smoking policy, room service/diet, and visiting hours. Information on how to activate the Rapid Response Team has been discussed. Patient/Family are encouraged to report perceived risks to care and to ask questions if they do not understand what they are told or what they should do.
[2023-01-30] VITALS: BP 170/80; PULSE 73; RESP 20; TEMP 36.6; O2SAT 95
[2023-01-30 00:05] VITALS: O2SAT 95
[2023-01-30 06:06] VITALS: BP 163/81; PULSE 73; RESP 22; TEMP 36.9; O2SAT 95
[2023-01-30] MEDS: LEVOTHYROXINE SODIUM 75 MCG TABLET PO (06:36)
[2023-01-30] MEDS: LEVOTHYROXINE SODIUM 100 MCG TABLET PO (06:36)
[2023-01-30 06:55] LABS: INR 1.8; Prothrombin Time 22.4 Seconds (11.1-14.7)
[2023-01-30 07:57] LABS: Glucose Point of Care 134 mg/dl (65-105)
[2023-01-30] MEDS: PANTOPRAZOLE 40 MG TABLET PO ×2 (08:57→16:31)
[2023-01-30] MEDS: CELECOXIB 200 MG CAPSULE PO ×2 (08:57→16:31)
[2023-01-30 08:58] VITALS: PULSE 84
[2023-01-30] MEDS: atenoloL 50 MG TABLET PO (08:58)
[2023-01-30] MEDS: GABAPENTIN 300 MG CAPSULE PO ×2 (08:58→16:30)
[2023-01-30] MEDS: CYANOCOBALAMIN 1,000 MCG TABLET 1000 MCG PO (08:58)
[2023-01-30] MEDS: INSULIN GLARGINE (*BKC) 100 UNITS/ML 45 UNITS SUB-Q (08:59)
[2023-01-30 11:18] LABS: Glucose Point of Care 319 mg/dl (65-105)
[2023-01-30] MEDS: INSULIN ASPART (*BKC) 100 UNITS/ML SUB-Q (11:48)
[2023-01-30 12:15] VITALS: O2SAT 97
[2023-01-30 14:00] VITALS: BP 166/75; PULSE 64; RESP 16; TEMP 36.2; O2SAT 97
[2023-01-30] MEDS: cefTRIAXone 2 GM/NS 100 ML 2 GM/100 ML BAG IVPB (16:30)
[2023-01-30 16:35] LABS: Glucose Point of Care 243 mg/dl (65-105)
--- NOTE | 2023-01-30 16:53 | PM.DS ---
DS: Admitting Diagnosis Discharge Date 01/30/23 Admitting Diagnosis Altered mental status DS: Discharge Diagnosis Discharge Diagnosis (1) Sepsis: Code(s): A41.9 - Sepsis, unspecified organism Status: Acute (2) Acute pyelonephritis: Code(s): N10 - Acute pyelonephritis Status: Acute (3) Lung infiltrate: Code(s): R91.8 - Other nonspecific abnormal finding of lung field Status: Acute (4) Bladder cancer: Qualifiers: Bladder location: unspecified site Qualified Code(s): C67.9 - Malignant neoplasm of bladder, unspecified Code(s): C67.9 - Malignant neoplasm of bladder, unspecified Status: Acute (5) Insulin dependent diabetes mellitus: Status: Chronic (6) History of DVT in adulthood: Code(s): Z86.718 - Personal history of other venous thrombosis and embolism Status: Acute (7) ISHMAEL (obstructive sleep apnea): Code(s): G47.33 - Obstructive sleep apnea (adult) (pediatric) Status: Acute (8) Vertebrogenic low back pain: Code(s): M54.51 - Vertebrogenic low back pain Status: Acute (9) Gastroesophageal reflux disease without esophagitis: Code(s): K21.9 - Gastro-esophageal reflux disease without esophagitis Status: Acute DS: Summary Hospital Course Reason for hospitalization: 72yo male with bladder cancer, AFib, ISHMAEL and DM here for fever and rigors. Please see H&P for details Hospital Course: Patient with sepsis present on admission with fever, rigors, AMS, lactic acidosis and tachycardia.? Blood pressure remained stable but did receive 3L NS in ED.? Source is UTI with pyelonephritis and bacteremia. UA consistent with UTI.? Urine culture growing EColi sensitive to Rocephin. Blood cultures (2 of 2) growing EColi sensitive to Rocephin. Was given a dose of Rocephin 1 g in the ED. no history of ESBL.? Patient has had clinical improvement with the Rocephin.? Rocephin dose was advanced to 2 g daily. Chest x-ray shows minimal bibasilar airspace opacities consistent with atelectasis versus pneumonia.? CT of the abdomen shows minimal dependent atelectasis in the lung bases.? Patient is on room air.? Suspect chest x-ray findings atelectasis.? Azithromycin stopped. Patient with a history of bladder cancer.? He did have a cystoscopy with bladder biopsy and fulguration in October.? 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 He has just finished BCG x3 treatments. ? Urology was informed patient's admission. A1c 6.9.? the patient's blood glucose was monitored with AccuCheks covering with sliding scale.? Hypoglycemia protocol was available as needed.? 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 INR was therapeutic on admission but dropped to 1.8 today. Continue Coumadin dose but will lower it while on Levaquin. Even though patient responded to treatment quickly, he was obtunded on admission. Plan for total of 2 weeks of abx. He was able to be discharged home on 01/30/23. Status at Discharge Cognitive/behavioral status at discharge: stable Time Spent with Patient Time attestation: Total time spent providing and/or coordinating discharge services: 35 minutes Time spent: Greater than 30 minutes Exam Narrative: AF 97.1 166/75 64 16 97% ra Gen - NARD Chest - CTA bilaterally, nml RR CV - RRR S1/S2 Abd - Soft, NT/ND, Positive BS Ext - No pedal edema Psych - Nml mood and affect Skin - Warm and dry DS: Data Data Completed and Pending Labs on day of discharge: Labs from last 24 hours 01/30/23 01/30/23 01/30/23 16:29 11:13 07:40 PT INR POC Capillary Glucose 243 H 319 H 134 H 01/30/23 01/29/23 01/29/23 06:11 20:34 16:26 PT 22.4 H INR 1.8 POC Capillary Glucose 208 H 193 H Discharge Plan Discharge Attending physician on discharge: Carl Silvestre Discharging Clinician: Carl Silvestre Anticipated Discharg
== END 2023-01-30 17:50 | disposition home or self-care (01) | DRG 872 ==
LOC: ANHED 22:35 → ANHIMU 22:49 → ANH3MEDSUR 01-29 22:26
PROVIDERS: Admitting Provider Internal Medicine; Emergency Provider Emergency Medicine; PCP Family Medicine; Visit Provider Internal Medicine
DX: A41.9 Sepsis, unspecified organism (principal); N10 Acute pyelonephritis; N39.0 Urinary tract infection, site not specified; B96.20 Unspecified Escherichia coli [E. coli] as the cause of diseases classified elsewhere; C67.9 Malignant neoplasm of bladder, unspecified; E03.9 Hypothyroidism, unspecified; E11.42 Type 2 diabetes mellitus with diabetic polyneuropathy; E78.5 Hyperlipidemia, unspecified; G47.33 Obstructive sleep apnea (adult) (pediatric); I10 Essential (primary) hypertension; I48.91 Unspecified atrial fibrillation; K21.9 Gastro-esophageal reflux disease without esophagitis; M96.1 Postlaminectomy syndrome, not elsewhere classified; M54.51 Vertebrogenic low back pain; M48.062 Spinal stenosis, lumbar region with neurogenic claudication; Z23 Encounter for immunization; Z79.85 Long-term (current) use of injectable non-insulin antidiabetic drugs; Z79.84 Long term (current) use of oral hypoglycemic drugs; Z79.4 Long term (current) use of insulin; Z79.01 Long term (current) use of anticoagulants; Z20.822 Contact with and (suspected) exposure to COVID-19; Z99.89 Dependence on other enabling machines and devices; Z86.73 Personal history of transient ischemic attack (TIA), and cerebral infarction without residual deficits; Z86.718 Personal history of other venous thrombosis and embolism; Z96.0 Presence of urogenital implants; Z96.651 Presence of right artificial knee joint; Z96.642 Presence of left artificial hip joint; Z98.49 Cataract extraction status, unspecified eye; Z87.891 Personal history of nicotine dependence
CPT/HCPCS: 36415; 71045; 74177; 80053; 81001; 82607; 82746; 82948; 83036; 83605; 83735; 84145; 84484; 85025; 85610; 85730; 86140; 87040; 87077; 87086; 87186; 87636; 90471; 90694; 93005; 96365; 99285; A9270; G0008; J0456; J0696; J1815; J7030; J7040; Q9967

== ENCOUNTER 2023-02-08 08:22 | Outpatient (CLI) | payer MEDICARE, SELFPAY ==
[2023-02-08 09:44] LABS: INR 1.2; Prothrombin Time 15.7 Seconds (11.1-14.7)
== END 2023-02-08 08:23 | disposition home or self-care (01) ==
PROVIDERS: PCP Family Medicine; Visit Provider Anesthesiology Pain Medicine
DX: Z79.01 Long term (current) use of anticoagulants (principal)
CPT/HCPCS: 36415; 85610

== ENCOUNTER 2023-02-09 05:49 | Day surgery (SDC) | payer MEDICARE, SELFPAY ==
--- NOTE | ~2023-02-09 | XR_ITS ---
XR fluoroscopy no charge 02/09/2023 11:45 TECHNIQUE: Fluoroscopy used during right L4-5, L5-S1 transforaminal epidural steroid injection perfo rmed by [Ambrsoe Kitchen MD] on 02/10/2020. 13 seconds of fluoroscopy with 43 images images captu red. FINDINGS: Correlate with procedure note. IMPRESSION: Fluoroscopy used during right L4-5, L5-S1 transforaminal epidural steroid injection. Reviewed, dictated and finalized at location L. IMPRESSION: Fluoroscopy used during right L4-5, L5-S1 transforaminal epidural s teroid injection.
[2023-02-09 06:35] VITALS: BP 146/76; PULSE 75; RESP 18; TEMP 36.3; O2SAT 98
--- NOTE | 2023-02-09 07:22 | WPDHPUPDATE1 ---
History and Physical Update Update Date/Time: 02/09/23 07:22 History and Physical has been reviewed, including an updated exam of the patient. There are NO changes in the patient's condition. Risks, benefits, and alternatives have been discussed and questions answered. Patient agrees to proceed with procedure.
[2023-02-09 07:45] VITALS: BP 147/93; PULSE 71; RESP 19; O2SAT 96
[2023-02-09 07:55] VITALS: BP 155/128; PULSE 75; RESP 15; O2SAT 96
--- NOTE | 2023-02-09 08:02 | W.PM.PROC2 ---
Procedure Note - Detailed Date of Procedure 02/09/23 Pre-op Diagnosis Lumbosacral radiculopathy, lumbar spinal stenosis Post-op Diagnosis Same Procedure Performed right L4-5, L5-S1 transforaminal epidural steroid injection under fluoroscopic guidance with contrast control. Surgeon Ambrose Kitchen MD Anesthesia Local Indications chronic, recalcitrant right low back, buttock and lower extremity pain secondary to lumbar radiculopathy as result of lumbar spinal stenosis and post-laminectomy syndrome Description of Procedure INFORMED CONSENT: Risks, benefits and alternatives to the procedure were discussed in detail with the patient who expressed explicit understanding and consent to proceed. Patient was informed verbally and in written form regarding the risks associated with the procedure including the low risk of serious infection, bleeding/bruising, allergic reaction, nerve or organ injury, paralysis, procedural site pain or discomfort, worsening pain and/or mobility, failure to treat and/or disfigurement. The patient expressed explicit understanding and consent to proceed. All materials required for the procedure were available prior to procedure start. Site and side was marked prior to procedure and confirmed in the presence of the patient. PROCEDURE IN DETAIL: The patient was brought to the procedural suite and placed in the prone position. Patient was made comfortable with use of pillows under the head/chest, hips and ankles. Skin overlying the injection site was prepared broadly with ChloraPrep applicator and draped in a sterile manner. Aseptic technique was employed throughout. The endplates of the vertebral body at the site of interest were aligned in the AP view. Ipsilateral oblique angulation was utilized to better visualize the neuroforamen of interest. Local anesthesia was established by infiltration with approximately 5 mL of 2% lidocaine via a 1-1/2 inch 27-gauge needle. A 22-gauge 5.0 inch Lico (pencil point) spinal needle was advanced until the needle approached the 6 o'clock position on the pedicle just superior to the exiting nerve root. on the right at L4-5. Lateral view was utilized to confirm appropriate position of the needle tip within the superior and posterior portion of the respective foramen. In an AP view, 1 mL of Omnipaque 300 contrast medium was injected after negative aspiration for CSF, blood or other bodily fluid, showing appropriate neurogram without evidence of intravascular or intrathecal spread of contrast. Digital subtraction imaging was used with an additional 1ml of the same contrast medium to confirm absence of intravascular contrast spread. A 1mL solution containing 5 mg of dexamethasone was injected after negative repeat aspiration. Appropriate spread of the injectate was confirmed with washout of previously injected contrast. No parasthesias were elicited. Needle was removed completely intact without difficulty. The same exact procedure was repeated for all remaining levels on the ipsilateral side, right L5-S1 neuroforamen, modified as necessary to accommodate for the new target location with identical findings and results and no evidence of complication. Images were saved and documented in the patient chart. Patient's skin was cleaned and sterile bandage applied. The patient tolerated the procedure well. The patient was transported to the recovery area in stable condition where they were observed for an appropriate amount of time prior to discharge, without evidence of complication. The patient was instructed to avoid excessive activity for the next 48 hours, including climbing and frequent use of stairs. Showers only for 48 hours. They were instructed not to drive or operate heavy machinery for 24 hours. They are to monitor for severe headaches, fevers, chills, night sweats, erythema/swelling at the site or any other signs of infection, bleeding/bruising, bowel or bladder changes as well as new pain, weakness or numbne
[2023-02-09] MEDS: LIDOCAINE HCL 1% PF INJ 5 ML VIAL 1.5 ML AFFCTD EYE (08:04)
[2023-02-09 08:05] VITALS: BP 130/69; BP 155/88; PULSE 65; PULSE 75; RESP 14; RESP 16; O2SAT 100; O2SAT 95
[2023-02-09] MEDS: LIDOCAINE HCL 2% PF INJ 5 ML VIAL 2 ML INFILTRATE (08:06)
--- NOTE | 2023-02-09 08:24 | SUR.PHASEII ---
0815; DR CAMPUZANO SAID PT COULD RESUME COUMADIN TOMORROW. PT NOTIFIED. PT VERBALIZED UNDERSTANDING.
== END 2023-02-09 08:20 | disposition home or self-care (01) ==
PROVIDERS: PCP Family Medicine; Visit Provider Anesthesiology Pain Medicine
PROC: (CPT 64483; principal; 2023-02-09 07:30)
DX: M54.17 Radiculopathy, lumbosacral region (principal); M48.061 Spinal stenosis, lumbar region without neurogenic claudication
CPT/HCPCS: 64483; 99199

== ENCOUNTER 2023-02-19 11:44 | Outpatient (CLI) | payer MEDICARE, SELFPAY ==
[2023-02-19 12:03] LABS: Basophils Percent Auto 0.6 % (0.2-1.2); Eosinophils Absolute Auto 0.3 K/mm3 (0-0.3); Eosinophils Percent Auto 5.1 % (0-4.4); Hematocrit 45.8 % (42.0-52.0); Hemoglobin 15.7 g/dL (14.0-18.0); Immature Granulocyte Absolute 0.02 K/mm3 (0.00-0.031); Immature Granulocyte Percent A 0.3 % (0-0.5); Lymphocytes Absolute Auto 1.76 K/mm3 (0.9-3.2); Lymphocytes Percent Auto 26.4 % (18.3-44.2); Mean Corpuscular HGB Conc 34.3 g/dl (32-36); Mean Corpuscular Hemoglobin 34.3 pg (26-34); Mean Platelet Volume 10.6 fl (7.4-10.4); Monocytes Absolute Auto 0.6 K/mm3 (0.1-0.6); Neutrophils Absolute Auto 3.9 K/mm3 (1.3-6.7); Neutrophils Percent Auto 58.6 % (45.5-73.1); Platelet Count Result 277 k/mm3 (150-375); Red Blood Count 4.58 M/mm3 (4.6-6.20); Red Cell Distribution Width 12.6 % (11.5-14.5); White Blood Count 6.7 K/mm3 (4.5-10.0)
[2023-02-19 12:16] LABS: Anion Gap 5 mmol/L (8-16); Blood Urea Nitrogen 21 mg/dL (9-20); Calcium 10.1 mg/dL (8.4-10.2); Carbon Dioxide 28 mmol/L (22-30); Chloride 103 mmol/L (98-107); Estimated Glomerular Filt Rate > 60; Glucose 131 mg/dL (65-110); Potassium 4.2 mmol/L (3.4-5.0); Sodium 136 mmol/L (137-145)
[2023-02-19 12:46] LABS: Free T4 Free Thyroxine 1.15 ng/mL (0.78-2.19)
== END 2023-02-19 11:45 | disposition home or self-care (01) ==
PROVIDERS: PCP Family Medicine; Visit Provider Family Medicine
DX: E53.8 Deficiency of other specified B group vitamins (principal); D64.9 Anemia, unspecified; E03.8 Other specified hypothyroidism; I10 Essential (primary) hypertension
CPT/HCPCS: 36415; 80048; 82607; 84439; 84443; 85025

== ENCOUNTER 2023-03-01 08:33 | Outpatient (CLI) | payer MEDICARE, SELFPAY ==
[2023-03-01 09:41] LABS: Albumin Level 4.7 g/dL (3.5-5.1); Anion Gap 6 mmol/L (8-16); Blood Urea Nitrogen 18 mg/dL (9-20); Calcium 10.5 mg/dL (8.4-10.2); Carbon Dioxide 31 mmol/L (22-30); Chloride 100 mmol/L (98-107); Estimated Glomerular Filt Rate > 60; Glucose 121 mg/dL (65-110); Phosphorus 2.6 mg/dL (2.5-4.5); Potassium 4.2 mmol/L (3.4-5.0); Sodium 137 mmol/L (137-145)
[2023-03-01 09:53] LABS: Appearance Urine Clear (Clear); Bacteria Urine None Seen /hpf; Bilirubin Urine Negative (Negative); Blood Urine 3+ (Negative); Color Urine Yellow (Yellow); Glucose Urine UA 1+ mg/dL (Negative); Ketones Urine Negative (Negative); Leukocyte Esterase Ur Negative LEU/UL (Negative); Nitrate Urine Negative (Negative); Non Pathogenic Casts 0-2; Protein Urine Trace mg/dL (Negative); RBC Urine >100 /hpf (0-2); Specific Grav Ur 1.022 (1.001-1.035); Squamous Epithelial Cell Urine None seen /hpf (Few); Urobilinogen Urine 0.2 mg/dL (<2.0)
[2023-03-01 10:00] LABS: Add Urine Microscopic? YES
[2023-03-09 08:46] LABS: Magnesium, 24-Hour Urine 64 mg/day (>60.0); Phosphorus, 24-Hour Urine 1154 mg/day (<1100); Sodium 24 Hour Urine 195 mEq/day (<200); Total Volume 24 Hour Urine 2 L/day (>2.00); Uric Acid, 24-Hour Urine 1090 mg/day (<700)
[2023-03-12 15:53] LABS: Uric Acid, 24-Hour Urine 0.24
[2023-03-12 15:55] LABS: Oxalic Acid, 24-Hour Urine 53
== END 2023-03-01 08:34 | disposition home or self-care (01) ==
LOC: ANHLAB 08:35
PROVIDERS: PCP Family Medicine; Visit Provider Internal Medicine Nephrology
DX: N20.0 Calculus of kidney (principal)
CPT/HCPCS: 36415; 80069; 81001; 82340; 84550; 87086

== ENCOUNTER 2023-03-15 08:03 | Outpatient (CLI) | payer MEDICARE, SELFPAY ==
--- NOTE | ~2023-03-15 | XR_ITS ---
XR chest 2V DATE: 03/15/2023 08:19 INDICATION: Preoperative evaluation TECHNIQUE: PA and lateral chest COMPARISON: 01/27/2023 portable AP chest FINDINGS: Normal heart size. No hilar or mediastinal enlargement. No pulmonary infiltrate or consolid ation, pleural effusion or pulmonary vascular congestion or pneumothorax is detected. There is degene rative spurring of the thoracic spine. IMPRESSION: No active cardiopulmonary disease Reviewed, dictated and finalized at location B.
--- NOTE | 2023-03-15 08:23 | ECG_ITS ---
Measurements Intervals [place] Rate: 68 P: 65 ME: 192 QRS: 78 QRSD: 98 T: 50 QT: 374 QTc: 398 Interpretive Statements SINUS RHYTHM POSSIBLE LEFT ATRIAL ENLARGEMENT [-0.1mV P WAVE IN V1/V2] BORDERLINE ECG COMPARED TO ECG 01/27/2023 19:42:28 SINUS RHYTHM NOW PRESENT Electronically Signed On 03-15-2023 8:52:55 CDT by Suresh Blanchard M.D.
[2023-03-15 09:49] LABS: Basophils Percent Auto 0.7 % (0.2-1.2); Eosinophils Absolute Auto 0.3 K/mm3 (0-0.3); Eosinophils Percent Auto 5.3 % (0-4.4); Hematocrit 50.2 % (42.0-52.0); Hemoglobin 16.3 g/dL (14.0-18.0); Immature Granulocyte Absolute 0.03 K/mm3 (0.00-0.031); Immature Granulocyte Percent A 0.5 % (0-0.5); Lymphocytes Absolute Auto 1.37 K/mm3 (0.9-3.2); Lymphocytes Percent Auto 24.2 % (18.3-44.2); Mean Corpuscular HGB Conc 32.5 g/dl (32-36); Mean Corpuscular Hemoglobin 33.2 pg (26-34); Mean Corpuscular Volume 102.2 fl (80-100); Mean Platelet Volume 11.1 fl (7.4-10.4); Monocytes Absolute Auto 0.6 K/mm3 (0.1-0.6); Monocytes Percent Auto 10.4 % (2.6-8.5); Neutrophils Absolute Auto 3.3 K/mm3 (1.3-6.7); Neutrophils Percent Auto 58.9 % (45.5-73.1); Platelet Count Result 277 k/mm3 (150-375); Red Blood Count 4.91 M/mm3 (4.6-6.20); Red Cell Distribution Width 13.1 % (11.5-14.5); White Blood Count 5.7 K/mm3 (4.5-10.0)
[2023-03-15 10:03] LABS: Alanine Aminotransferase 24 U/L (6-50); Albumin Level 4.5 g/dL (3.5-5.1); Alkaline Phosphatase 45 U/L (38-126); Anion Gap 7 mmol/L (8-16); Aspartate Amino Transferase 24 U/L (17-59); Bilirubin,Total 0.9 mg/dL (0.2-1.3); Blood Urea Nitrogen 12 mg/dL (9-20); Calcium 10.2 mg/dL (8.4-10.2); Carbon Dioxide 26 mmol/L (22-30); Chloride 104 mmol/L (98-107); Estimated Glomerular Filt Rate > 60; Glucose 109 mg/dL (65-110); Potassium 3.9 mmol/L (3.4-5.0); Sodium 137 mmol/L (137-145)
[2023-03-15 13:53] LABS: INR 1.1; Prothrombin Time 15.1 Seconds (11.1-14.7)
[2023-03-15 13:54] LABS: Partial Thromboplastin Time 26.3 SECONDS (22.3-36.8)
== END 2023-03-15 08:04 | disposition home or self-care (01) ==
PROVIDERS: PCP Family Medicine; Visit Provider Anesthesiology Pain Medicine
DX: I25.10 Atherosclerotic heart disease of native coronary artery without angina pectoris (principal); E11.9 Type 2 diabetes mellitus without complications; I10 Essential (primary) hypertension; D64.9 Anemia, unspecified; E53.8 Deficiency of other specified B group vitamins; Z79.01 Long term (current) use of anticoagulants; R94.31 Abnormal electrocardiogram [ECG] [EKG]
CPT/HCPCS: 36415; 71046; 80053; 85025; 85610; 85730; 93005

== ENCOUNTER 2023-03-16 06:25 | Day surgery (SDC) | payer MEDICARE, SELFPAY ==
[2023-03-12 10:43] VITALS: BMI 30.2
--- NOTE | 2023-03-15 13:40 | WPDANESEPPF ---
Anes - Initial Pre Proc Eval Procedure: Operation Date: 03/16/23 09:00 Proposed Procedures p Bilateral L3-4, L4-5 Minimally Invasive Lumbar Decompression, Possible Epidurogram - Ambrose Kitchen MD Date/Time: 03/15/23 13:40 Surgeon: Ambrose Kitchen MD Pre Op Diagnosis: Lumbar Spinal Stenosis Patient Data Age: 72 Gender: M Height: 1.83 m Weight: 101.1 kg Allergies Allergy/AdvReac Type Severity Reaction Status Date / Time No Known Allergies Allergy Verified 03/16/23 07:38 Home Medications Medication Instructions Recorded Confirmed Type levothyroxine 175 mcg tablet 175 mcg PO QAM 05/28/19 03/12/23 History metformin 500 mg tablet,extended 1,000 mg PO BID 05/28/19 03/12/23 History release 24hr insulin lispro 100 unit/mL See Rx Instructions .Route .COMPLEX 05/29/19 03/12/23 History subcutaneous pen (Humalog KwikPen (U-100) Insulin) mecobalamin (vitamin B12) 1,000 1,000 mcg sublingual QAM 09/16/20 03/12/23 History mcg disintegrating tablet,sublingual nvlhovif-adhq-mxbni acid 400 1 tablet PO DAILY 02/13/22 03/12/23 History mcg-lycopene 600 mcg-ginkgo 120 mg tablet celecoxib 200 mg capsule 200 mg PO BID #180 caps 06/08/22 03/12/23 Rx omeprazole 20 mg capsule,delayed 20 mg PO BID 06/08/22 03/12/23 History release rosuvastatin 10 mg tablet 10 mg PO HS #90 tabs 11/02/22 03/12/23 Rx warfarin 6 mg tablet See Rx Instructions .Route 01/21/23 03/12/23 Rx .COMPLEX #30 tabs atenolol 50 mg tablet 50 mg PO QAM #90 tabs 01/22/23 03/16/23 Rx fenofibrate micronized 200 mg 200 mg PO DAILY 01/28/23 03/12/23 History capsule gabapentin 300 mg capsule 300 mg PO BID 01/28/23 03/12/23 History potassium chloride 10 mEq 30 meq PO DAILY 01/28/23 03/12/23 History tablet,extended release warfarin 5 mg tablet See Rx Instructions .Route .COMPLEX 01/28/23 03/16/23 History insulin glargine 100 unit/mL (3 45 unit (0.45 mL) subcut HS #15 mL 01/30/23 03/12/23 Rx mL) subcutaneous pen (Lantus Solostar U-100 Insulin) hydrochlorothiazide 25 mg tablet 25 mg PO QAM #90 tabs 02/11/23 03/12/23 Rx tramadol 50 mg tablet 50 mg PO Q6H PRN pain #120 tabs 03/01/23 03/12/23 Rx semaglutide 1 mg/dose (4 mg/3 mL) 1 mg subcut WEEKLY 03/02/23 03/12/23 History subcutaneous pen injector Patient hx anesthesia problems: none Family hx anesthesia problems: none Results Review: All pre-operative results and documents have been reviewed as part of the pre-operative evaluation. [facility] Past Medical History Medical History Bladder cancer BMI 29.0-29.9,adult BMI 30.0-30.9,adult BMI 31.0-31.9,adult BMI 32.0-32.9,adult Colon cancer screening Dysphagia Essential hypertension Fever Gastroesophageal reflux disease without esophagitis History of CVA (cerebrovascular accident) History of DVT (deep vein thrombosis) Long-term anticoagulation History of DVT in adulthood Hyperlipidemia Hypothyroidism Insulin dependent diabetes mellitus Left carotid artery occlusion Nephrolithiasis Obstructive sleep apnea Type 2 diabetes mellitus without complication, without long-term current use of insulin Surgical History Surgical History H/O lithotripsy History of biopsy of bladder History of cataract extraction History of knee replacement Partial right knee replacement Status post hip replacement Left side Status post placement of ureteral stent Right side Family History Family History Father Cancer Mother Cancer Sibling Hypertension Grandparent Diabetes mellitus Social History Social History Social History: The patient lives with his sleeve in girlfriend. The patient quit smoking 40+ years ago. The patient has 2 children. His son is the eddie cruz
[2023-03-16] VITALS (9 sets, daily range): BP systolic 127–149; BP diastolic 67–99; PULSE 68–84; RESP 15–20; TEMP 36.4–36.6; O2SAT 95–99
--- NOTE | ~2023-03-16 | XR_ITS ---
XR fluoroscopy no charge Indication: Bilateral L3-4, L4-5 minimally invasive lumbar decompression TECHNIQUE: Fluoroscopy used during Bilateral L3-4, L4-5 minimally invasive lumbar decompression perf ormed by [Ambrose Kitchen MD] on 03/16/2023. 420 seconds of fluoroscopy with 11 fluoroscopic angelika ges captured. FINDINGS: Correlate with procedure note. IMPRESSION: Fluoroscopy used during Bilateral L3-4, L4-5 minimally invasive lumbar decompression. Ple ase refer to procedural report. Reviewed, dictated and finalized at location A. IMPRESSION: Fluoroscopy used during Bilateral L3-4, L4-5 minimally invasive lum bar decompression. Please refer to procedural report.
--- NOTE | 2023-03-16 05:40 | WPDHPUPDATE1 ---
History and Physical Update Update Date/Time: 03/16/23 05:40 History and Physical has been reviewed, including an updated exam of the patient. There are NO changes in the patient's condition. Risks, benefits, and alternatives have been discussed and questions answered. Patient agrees to proceed with procedure.
[2023-03-16 08:05] LABS: Glucose Point of Care 175 mg/dl (65-105)
[2023-03-16] MEDS: LACTATED RINGERS 1,000 ML 30 ML IV CONT (08:05)
[2023-03-16] MEDS: BUPIVACAINE/EPINEPHRINE 0.5% 50 ML VIAL 10 ML INFILTRATE (10:43)
[2023-03-16] MEDS: LIDO 1%/EPINEPHRINE 1:100,000 20 ML VIAL 10 ML INFILTRATE (10:43)
--- NOTE | 2023-03-16 11:49 | W.PM.PROC2 ---
Procedure Note - Detailed Date of Procedure 03/16/23 Pre-op Diagnosis Lumbar Spinal Stenosis with intermittent neurogenic claudication Post-op Diagnosis Same Procedure Performed bilateral L3-4, L4-5 minimally invasive lumbar decompression under fluoroscopic guidance. Surgeon Ambrose Kitchen MD Anesthesia General and Local Description of Procedure INFORMED CONSENT: Risks, benefits, and alternatives to the procedure were discussed in detail with the patient who expressed explicit understanding and consent to proceed. Risks discussed with the patient included but were not limited to risk of serious local or systemic infection, bleeding/bruising, epidural hematoma, dural puncture or tear resulting in CSF leak and acute or chronic post-dural puncture headache, scarring/deformity, immediate or delayed allergic reaction, decreased mobility, failure to treat pain, inadvertent neurologic injury resulting in increased pain, weakness/paralysis or numbness, inadvertent organ injury, need for additional surgery, allergic reaction, heart attack, stroke, seizure, coma, . Anesthetic risks were also briefly discussed by myself and the internet marketing consultant. The patient expressed understanding and consent to proceed, agreeing that potential benefits outweigh risk of harm. All materials required for the procedure were immediately available prior to procedure start. Site and side were confirmed with the patient, compared carefully to the patient chart and consent, and marked prior to transport to the operating room. Appropriate time out procedure was performed per protocol prior to procedure start. PROCEDURE IN DETAIL: The patient was brought to the operative suite and placed in the Supine position. Appropriate ASA standard monitors were attached. Anesthesia was initiated without difficulty or event. Eyes were protected. Patient was transitioned to the prone position. Pressure points were padded with joints in neutral position. When appropriate, breasts and genitals were evaluated and protected. Eyes were checked and were free from undue pressure. Skin overlying the procedure site was marked with sterile marker. Surgical area was prepared in a typical sterile fashion with ChloraPrep and allowed to dry for at least 3 minutes prior to sterilely draping the surgical site. The lumbar spine was identified in the AP fluoroscopic view with slight cephalad tilt perfectly aligning the endplates at the targeted levels with spinous processes bisecting the transpedicular plane. After identifying the intended incision site approximately 1.5 levels inferior to the level of interest, the area was anesthetized by infiltration with no more than 10ml of a 1:1 admixture of 0.5% PF bupivacaine with epinephrine and 2% PF lidocaine with epinepherine via a 27-gauge needle after negative aspiration. A 22-gauge spinal needle was used to provide additional and adequate local anesthesia to the level of the interspinous ligament, ligamentum flavum and the periosteum of the lamina at the intended treatment levels. In the AP view, a #11 scalpel blade was used to create a single stab incision at the intended incision site on the targeted side. The Vertos MILD kit was opened and the included cannula and trocar assembly was advanced through the incision to contact the midportion of the left lamina just adjacent to the spinous process at L5. Once seated, the lateral view was used to gauge depth demonstrating the most anterior tip of the trocar posterior to the epidural space at all times. The cotton grower-provided cannula stabilizer was placed over the trocar flush to the patient's lumbar flank. Cannula obturator with handle was removed. Included depth guide was then attached to the insertion port on the cannula and set to an intial depth of 15 mm. The bone rongeur was advanced to the depth of the lumbar lamina at the targeted level. Depth gauge was then adjusted allowing rongeur tip to advance in the contra
--- NOTE | 2023-03-16 12:01 | SUR.PHASEI ---
1150; DR CAMPUZANO AT BEDSIDE IN PACU. STATES DRESSING MAY GET SATURATED AND DRESSING CHANGES PRN. PLACE ICE PACK ABOVE DRESSING.
[2023-03-16 12:24] LABS: Glucose Point of Care 155 mg/dl (65-105)
--- NOTE | 2023-03-16 13:33 | SUR.PHASEII ---
[address] Kitchen when patient can restart coumadin post procedure. Per Dr. Kitchen Pt can restart coumadin 48 hours after procedure. Added to pt's discharge paperwork and discussed with pt. pt confirmed understanding of when can restart.
== END 2023-03-16 12:55 | disposition home or self-care (01) ==
PROVIDERS: PCP Family Medicine; Visit Provider Anesthesiology Pain Medicine
PROC: (CPT 0275T; principal; 2023-03-16 09:00)
DX: M48.062 Spinal stenosis, lumbar region with neurogenic claudication (principal)
CPT/HCPCS: 0275T; 99199

== ENCOUNTER 2023-04-26 10:16 | Outpatient (CLI) | payer MEDICARE, SELFPAY ==
[2023-04-26 10:50] LABS: Cholesterol 130 mg/dL (0-200); HDL Direct 49 mg/dL; Triglycerides 143 mg/dL (<150)
[2023-04-26 11:00] LABS: LDL Cholesterol Direct 66 mg/dL
== END 2023-04-26 10:17 | disposition home or self-care (01) ==
PROVIDERS: PCP Family Medicine; Visit Provider Internal Medicine Cardiovascular Disease
DX: E78.2 Mixed hyperlipidemia (principal)
CPT/HCPCS: 36415; 80061

== ENCOUNTER 2023-04-26 10:20 | Outpatient (RCR) | payer MEDICARE, SELFPAY ==
[2023-04-26 11:28] LABS: INR 3.5; Partial Thromboplastin Time 43.7 SECONDS (22.3-36.8); Prothrombin Time 38.5 Seconds (11.1-14.7)
== END 2023-07-25 23:59 | disposition home or self-care (01) ==
LOC: ANHLAB 10:20
PROVIDERS: PCP Family Medicine; Visit Provider Anesthesiology Pain Medicine
DX: Z51.81 Encounter for therapeutic drug level monitoring (principal); E78.2 Mixed hyperlipidemia; Z79.01 Long term (current) use of anticoagulants
CPT/HCPCS: 36415; 80061; 85610; 85730

== ENCOUNTER 2023-04-28 09:57 | Emergency (ER) | payer MEDICARE, SELFPAY ==
--- NOTE | ~2023-04-28 | CT_ITS ---
EXAMINATION: CT lumbar spine wo con DATE: 04/28/2023 11:26 INDICATION: Low back pain. TECHNIQUE: Computed tomography (CT) of the lumbar spine was performed without intravenous contrast. A utomated exposure control and iterative reconstruction technique were employed. The dose-length produ ct was 1411.59 mGy-cm. COMPARISON: None FINDINGS: There is calcified atherosclerosis of the aorta and many of the other arteries. There is 3 mm retrolisthesis of L5 on S1. There is mild chronic anterior wedging of T11 and T12 vertebral bodies . There are Schmorl's nodes at multiple levels. There are bridging endplate osteophytes from T10 to L 1 and at L2-L3, consistent with diffuse idiopathic skeletal hyperostosis (DISH). There is mildly decr eased disc height at L5-S1. Osseous central spinal canal is developmentally small. The following disc levels are specifically discussed: L1-L2: There is a right foraminal protrusion. There is mild bilateral facet joint osteoarthritis. The re is mild right neural foraminal stenosis. There is mild central canal stenosis. L2-L3: The disc is bulging. There is mild bilateral facet joint osteoarthritis. There is mild bilater al neural foraminal stenosis. There is mild central canal stenosis. L3-L4: The disc is bulging. There is moderate right and severe left facet joint osteoarthritis. There is moderate bilateral neural foraminal stenosis. There is moderate central canal stenosis. L4-L5: The disc is bulging. There is severe bilateral facet joint osteoarthritis. There is moderate b ilateral neural foraminal stenosis. There is severe central canal stenosis. L5-S1: The disc is bulging. There is moderate right and severe left facet joint osteoarthritis. There is moderate bilateral neural foraminal stenosis. There is mild central canal stenosis. IMPRESSION: 1. Moderate lumbar spondylosis. 2. DISH. Reviewed, dictated and finalized at location A. [employer]
[2023-04-28 10:20] VITALS: BP 151/67; PULSE 80; RESP 16; TEMP 37; O2SAT 98
--- NOTE | 2023-04-28 11:11 | ED.BACK ---
HPI - Back Pain/Injury General Chief Complaint: Back Pain/Injury Stated Complaint: CHRONIC BACK PAIN Time Seen by Provider: 04/28/23 10:28 Source: patient Mode of arrival: ambulatory ( with cane) Limitations: no limitations History of Present Illness HPI Narrative: This is a 73-year-old male that presents to the emergency department for acute on chronic low back pain. Reports he recently had a minimally invasive procedure to his lumbar spine with his sign painter. The 1st couple of weeks he was feeling really good. Reports the day after Thanksgiving he started to have worsening pain and paresthesias in his right leg. He called his sign painter, was unable to get in until May which prompted him to be seen. Denies saddle anesthesia, bowel/bladder incontinence. Related Data Home Medications Medication Instructions Recorded Confirmed levothyroxine 175 mcg tablet 175 mcg PO QAM 05/28/19 04/21/23 metformin 500 mg tablet,extended 1,000 mg PO BID 05/28/19 04/21/23 release 24hr (osmotic) insulin lispro 100 unit/mL See Rx Instructions .Route .COMPLEX 05/29/19 04/21/23 subcutaneous pen (Humalog KwikPen (U-100) Insulin) mecobalamin (vitamin B12) 1,000 1,000 mcg sublingual QAM 09/16/20 04/21/23 mcg disintegrating tablet,sublingual hupwezpb-svrk-lzuhn acid 400 1 tablet PO DAILY 02/13/22 04/21/23 mcg-lycopene 600 mcg-ginkgo 120 mg tablet omeprazole 20 mg capsule,delayed 20 mg PO BID 06/08/22 04/21/23 release fenofibrate micronized 200 mg 200 mg PO DAILY 01/28/23 04/21/23 capsule gabapentin 300 mg capsule 300 mg PO BID 01/28/23 04/21/23 potassium chloride 10 mEq 30 meq PO DAILY 01/28/23 04/21/23 tablet,extended release insulin glargine 100 unit/mL (3 45 unit subcut QPM 04/12/23 04/21/23 mL) subcutaneous pen (Lantus Solostar U-100 Insulin) semaglutide 1 mg/dose (4 mg/3 mL) 1.5 mg subcut WEEKLY 04/12/23 04/21/23 subcutaneous pen injector vibegron 75 mg tablet (Gemtesa) 75 mg PO DAILY 04/21/23 04/21/23 Allergies Allergy/AdvReac Type Severity Reaction Status Date / Time No Known Allergies Allergy Verified 04/28/23 10:26 Review of Systems Review of Systems: CONSTITUTIONAL: Denies fever SKIN: Denies rash MUSCULOSKELETAL: Reports back pain, joint pain, and myalgia. NEUROLOGIC: Reports numbness. Denies weakness. All systems reviewed & are unremarkable except as noted in HPI and below PMFSH Past Medical History Medical History Bladder cancer BMI 29.0-29.9,adult BMI 30.0-30.9,adult BMI 31.0-31.9,adult BMI 32.0-32.9,adult Colon cancer screening Dysphagia Essential hypertension Fever Gastroesophageal reflux disease without esophagitis History of CVA (cerebrovascular accident) History of DVT (deep vein thrombosis) Long-term anticoagulation History of DVT in adulthood Hyperlipidemia Hypothyroidism Insulin dependent diabetes mellitus Left carotid artery occlusion Nephrolithiasis Obstructive sleep apnea Type 2 diabetes mellitus without complication, without long-term current use of insulin Surgical History Surgical History H/O lithotripsy History of biopsy of bladder History of cataract extraction History of knee replacement Partial right knee replacement Status post hip replacement Left side Status post placement of ureteral stent Right side Family History Family History Father Cancer Mother Cancer Sibling Hypertension Grandparent Diabetes mellitus Social History Social History Social History: The patient lives with his sleeve in girlfriend. The patient quit smoking 40+ years ago. The patient has 2 children. His son is the durable power mobility specialist for healthcare. The [facility]
--- NOTE | 2023-04-28 11:26 | PC.NURSE ---
Pt to CT scan via w/c at this time.
[2023-04-28] MEDS: ACETAMINOPHEN 500 MG TABLET 1000 MG PO (11:37)
[2023-04-28] MEDS: predniSONE 20 MG TABLET 40 MG PO (11:37)
[2023-04-28] MEDS: diazePAM INJ (*CRX) 10 MG/2 ML SYRINGE 5 MG IM (11:37)
[2023-04-28 12:23] VITALS: BP 145/68; PULSE 69; RESP 17; O2SAT 95
[2023-04-28] MEDS: oxyCODONE HCL (*CRX) 5 MG TAB IR PO (13:14)
== END 2023-04-28 14:01 | disposition home or self-care (01) ==
PROVIDERS: Emergency Provider Physician Assistant; PCP Family Medicine
DX: M54.42 Lumbago with sciatica, left side (principal); M54.41 Lumbago with sciatica, right side; I10 Essential (primary) hypertension; I65.22 Occlusion and stenosis of left carotid artery; E11.9 Type 2 diabetes mellitus without complications; E78.5 Hyperlipidemia, unspecified; E03.9 Hypothyroidism, unspecified; K21.9 Gastro-esophageal reflux disease without esophagitis; G47.33 Obstructive sleep apnea (adult) (pediatric); Z96.651 Presence of right artificial knee joint; Z96.642 Presence of left artificial hip joint; Z85.51 Personal history of malignant neoplasm of bladder; Z96.0 Presence of urogenital implants; Z86.718 Personal history of other venous thrombosis and embolism; Z86.73 Personal history of transient ischemic attack (TIA), and cerebral infarction without residual deficits; Z87.442 Personal history of urinary calculi; Z87.891 Personal history of nicotine dependence; Z98.49 Cataract extraction status, unspecified eye; Z79.4 Long term (current) use of insulin; Z79.84 Long term (current) use of oral hypoglycemic drugs; Z79.85 Long-term (current) use of injectable non-insulin antidiabetic drugs; M47.816 Spondylosis without myelopathy or radiculopathy, lumbar region; M48.15 Ankylosing hyperostosis [Forestier], thoracolumbar region
CPT/HCPCS: 72131; 96372; 99284; A9270; J3360; J7512

== ENCOUNTER 2023-05-03 01:26 | Day surgery (SDC) | payer MEDICARE, SELFPAY ==
[2023-04-29 08:45] VITALS: BMI 29.0
--- NOTE | 2023-04-29 08:57 | PC.NURSE ---
Report to the Outpatient Waiting Room, entrance under the green pavilion located off [facility], at time __1030 on date __05/03/23 . Planned Procedure Time: __1200 . Time changes happen often and if your time is changed the preop area will call you the afternoon before. - You and your visitor will be asked to self-screen and do not enter if you have any COVID symptoms. - A mask is optional within the hospital at this time. Patients may have SIPS clear liquids (water) until 2 hours prior to surgery with a maximum of 20 ounces. -LIGHT BREAKFAST - Infants may have breast milk until 4 hours before surgery, infant formula 6 hours prior to surgery. - Children will be allowed to drink immediately following surgery. If applicable, please bring a bottle or sippy cup to assist with drinking. Juice, water, soda, and popsicles are readily available. For infants on formula, please bring formula the day of surgery. Pacifiers are allowed. Take the following medications with a SIP of water the morning of surgery: _HOME MEDS PER DR. CAMPUZANO_ DO NOT STOP ANY OF YOUR OTHER PRESCRIPTION MEDICATIONS PRIOR TO SURGERY ?EXCEPT THE FOLLOWING Medications to discontinue per DR. CAMPUZANO - WARFARIN - PT STATES LAST DOSE TAKEN WAS 04/27/23 ___ Date to take last dose Please no make-up, nail maltese, hairspray, perfume, deodorant, or body powder the day of surgery. No jewelry (including any body piercings) or valuables the day of surgery, leave them at home. Please take a shower or bath the night before, or the morning of, surgery with an antibacterial soap. Wear comfortable, loose fitting clothing. Children are encouraged to wear pajamas. - Jewelry must be removed prior to entering the operating room. Rings and piercings that are not removed may be cut off. - The hospital will not accept responsibility for valuables. - Please leave all valuables, including medications, at home the day of surgery. If you are going home after surgery, a licensed electric screw driver operator must drive you home. - NO public transportation without another adult if you receive anesthesia. - We recommend that an adult stay with you for 24 hours following discharge. - We also recommend that you do not drive, make important decision, drink alcoholic beverages, or take any drugs that were not prescribed by your health care provider for at least 24 hours after your discharge time. For Pediatric surgeries, we recommend two adults accompany the child home. Follow any additional instructions given to you from your surgeon. If you or anyone in your household have experienced Covid symptoms in the past week, please notify your surgeon or the nurse liaison at the phone number below for possible testing. Telephone instructions given to _PATIENT_and asked if any additional questions and then verbalized understanding. Patient advised to call surgeon office or pre surgery nurse liaison [phone] if any additional questions.
[2023-05-03] VITALS (7 sets, daily range): BP systolic 137–191; BP diastolic 56–95; PULSE 58–70; RESP 14–17; TEMP 36.6; O2SAT 95–96
--- NOTE | ~2023-05-03 | XR_ITS ---
XR fluoroscopy no charge Indication: Epidural steroid injection TECHNIQUE: Fluoroscopy used during Epidural steroid injection performed by [Ambrose Kitchen MD] on 05/03/2023. 42 seconds of fluoroscopy with 11 fluoroscopic images captured. FINDINGS: Correlate with procedure note. IMPRESSION: Fluoroscopy used during Epidural steroid injection. Please refer to procedural note. Reviewed, dictated and finalized at location A. ETISING EXTRUDER OPERATOR
[2023-05-03 11:02] LABS: INR 1.1; Prothrombin Time 14.4 Seconds (11.1-14.7)
[2023-05-03 11:03] LABS: Partial Thromboplastin Time 24.3 SECONDS (22.3-36.8)
--- NOTE | 2023-05-03 11:26 | WPDHPUPDATE1 ---
History and Physical Update Update Date/Time: 05/03/23 11:26 History and Physical has been reviewed, including an updated exam of the patient. There are NO changes in the patient's condition. Risks, benefits, and alternatives have been discussed and questions answered. Patient agrees to proceed with procedure.
[2023-05-03] MEDS: LIDOCAINE HCL 2% PF INJ 5 ML VIAL INFILTRATE (12:33)
[2023-05-03] MEDS: BETAMETHASONE SODIUM PHOSPHATE PF INJ 6 MG/ML VIAL INFILTRATE ×2 (12:35→12:36)
--- NOTE | 2023-05-03 15:26 | W.PM.PROC2 ---
Procedure Note - Detailed Date of Procedure 05/03/23 Pre-op Diagnosis spinal stenosis, Lumbosacral radiculopathy. Post-op Diagnosis Same Procedure Performed Bilateral L4-5, L5-S1 transforaminal epidural steroid injection under fluoroscopic guidance with contrast control. Surgeon Ambrose Kitchen MD Anesthesia Local Description of Procedure INFORMED CONSENT: Risks, benefits and alternatives to the procedure were discussed in detail with the patient who expressed explicit understanding and consent to proceed. Patient was informed verbally and in written form regarding the risks associated with the procedure including the low risk of serious infection, bleeding/bruising, allergic reaction, nerve or organ injury, paralysis, procedural site pain or discomfort, worsening pain and/or mobility, failure to treat and/or disfigurement. The patient expressed explicit understanding and consent to proceed. All materials required for the procedure were available prior to procedure start. Site and side was marked prior to procedure and confirmed in the presence of the patient. PROCEDURE IN DETAIL: The patient was brought to the procedural suite and placed in the prone position. Patient was made comfortable with use of pillows under the head/chest, hips and ankles. Skin overlying the injection site was prepared broadly with ChloraPrep applicator and draped in a sterile manner. Aseptic technique was employed throughout. The endplates of the vertebral body at the site of interest were aligned in the AP view. Ipsilateral oblique angulation was utilized to better visualize the neuroforamen of interest. Local anesthesia was established by infiltration with approximately 5 mL of 2% lidocaine via a 1-1/2 inch 27-gauge needle. A 22-gauge 3.5 inch Lico (pencil point) spinal needle was advanced until the needle approached the 6 o'clock position on the pedicle just superior to the exiting nerve root. on the rate at L4-5. Lateral view was utilized to confirm appropriate position of the needle tip within the superior and posterior portion of the respective foramen. In an AP view, 1 mL of Omnipaque 300 contrast medium was injected after negative aspiration for CSF, blood or other bodily fluid, showing appropriate neurogram without evidence of intravascular or intrathecal spread of contrast. Digital subtraction imaging was used with an additional 1ml of the same contrast medium to confirm absence of intravascular contrast spread. A 1mL solution containing 6 mg of betamethasone was injected after negative repeat aspiration. Appropriate spread of the injectate was confirmed with washout of previously injected contrast. No parasthesias were elicited. Needle was removed completely intact without difficulty. The same exact procedure was repeated for all remaining levels on the ipsilateral side, right L5-S1 neuroforamen and on the contralateral side, left L4-5, L5-S1 neuroforamen, modified as necessary to accommodate for the new target location with identical findings and results and no evidence of complication. Images were saved and documented in the patient chart. Patient's skin was cleaned and sterile bandage applied. The patient tolerated the procedure well. The patient was transported to the recovery area in stable condition where they were observed for an appropriate amount of time prior to discharge, without evidence of complication. The patient was instructed to avoid excessive activity for the next 48 hours, including climbing and frequent use of stairs. Showers only for 48 hours. They were instructed not to drive or operate heavy machinery for 24 hours. They are to monitor for severe headaches, fevers, chills, night sweats, erythema/swelling at the site or any other signs of infection, bleeding/bruising, bowel or bladder changes as well as new pain, weakness or numbness in the upper or lower extremity. Should they notice these changes, they are instructed to call our office immediately
== END 2023-05-03 13:26 | disposition home or self-care (01) ==
PROVIDERS: PCP Family Medicine; Visit Provider Anesthesiology Pain Medicine
PROC: (CPT 64483; principal; 2023-05-03 12:00)
DX: M48.062 Spinal stenosis, lumbar region with neurogenic claudication (principal); M47.26 Other spondylosis with radiculopathy, lumbar region; M96.1 Postlaminectomy syndrome, not elsewhere classified; G89.29 Other chronic pain; M15.9 Polyosteoarthritis, unspecified; M54.51 Vertebrogenic low back pain; M46.1 Sacroiliitis, not elsewhere classified; I25.10 Atherosclerotic heart disease of native coronary artery without angina pectoris; I10 Essential (primary) hypertension; K21.9 Gastro-esophageal reflux disease without esophagitis; Z86.73 Personal history of transient ischemic attack (TIA), and cerebral infarction without residual deficits; E78.5 Hyperlipidemia, unspecified; Z86.718 Personal history of other venous thrombosis and embolism; Z87.891 Personal history of nicotine dependence
CPT/HCPCS: 64483; 64484; 36415; 85610; 85730; 99199

== ENCOUNTER 2023-05-03 17:31 | Inpatient (IN) | payer MEDICARE, SELFPAY ==
--- NOTE | ~2023-05-03 | CT_ITS ---
Noncontrast CT scan of the lumbar spine CLINICAL HISTORY: Back pain TECHNIQUE: Axial noncontrast imaging of the lumbar spine was performed. Sagittal and coronal reformat carol ann images were constructed. Dose reduction technique was used on this scan by utilizing automated ex posure control and iterative reconstruction technique. The dose-length product (DLP) was 1488.51 mGy- cm. COMPARISON: 04/28/2023 FINDINGS: No acute fracture seen. Stable 3 mm retrolisthesis of L5 over S1. There is minimal degenera tive disc narrowing at L1-L2, L2-L3, and L5-S1. Flowing anterior marginal osteophytes are present, co mpatible with DISH. At L1-L2, there is minimal disc bulge and minimal facet arthropathy. No central canal stenosis. There is mild bilateral neural foraminal narrowing. At L2-L3, there is mild disc bulge with facet arthropathy, resulting in probable minimal central darren l stenosis. There is moderate left neural foraminal narrowing, and mild right neural foraminal narrow ing. At L3-L4, there is disc bulge and facet arthropathy, resulting in probable moderate to severe central canal stenosis. There is advanced bilateral neural foraminal narrowing. At L4-L5, disc bulge and facet arthropathy result in probable severe central canal stenosis/thecal sa c compression. There is severe bilateral neural foraminal narrowing. At L5-S1, there is disc bulge, without definite canal stenosis. There is severe bilateral neural fora cameron narrowing. Paravertebral soft tissues are unremarkable. Impression: Severe degenerative spondylosis at L3-L4, L4-L5, as detailed above. Moderate degenerative spondylosis in the remainder of the lumbar spine. 3 mm retrolisthesis of L5 over S1. Reviewed, dictated and finalized at [facility]. OR ASSISTANT MANAGER Impression: Severe degenerative spondylosis at L3-L4, L4-L5, as detailed above. Moderate de generative spondylosis in the remainder of the lumbar spine. 3 mm retrolisthesis of L5 over S1.
--- NOTE | ~2023-05-03 | MR_ITS ---
EXAMINATION: MR thoracic spine wo/w con DATE: 05/04/2023 17:17 INDICATION: Back pain. Frequent falls. TECHNIQUE: Magnetic resonance imaging (MRI) of the thoracic spine was performed without intravenous c ontrast. The patient terminated the exam after a few sequences before axial imaging or postcontrast i maging could be performed. COMPARISON: CT lumbar spine 05/04/2023 FINDINGS: There is 4 degrees dextrocurvature of thoracic spine. There are Schmorl's nodes at multiple levels. There is mild chronic anterior wedging of T11-L1 vertebral bodies. There are bridging endpla te osteophytes at multiple levels in the spine, consistent with diffuse idiopathic skeletal hyperosto sis (DISH). There are disc calcifications at T7-T8, T8-T9, T9-T10, and T11-T12. There is mildly decre ased disc height from T3-T4 through T11-T12. There is multilevel facet joint osteoarthritis, severe a t a few levels. The discs do not extend beyond the endplate margins. On the right, there is mild neur al foraminal stenosis at T1-T2 and moderate neural foraminal stenosis at T2-T3 and T3-T4. On the left , there is mild neural foraminal stenosis at T1-T2, T3-T4, T4-T5, and T10-T11. There is mild central canal stenosis at T10-T11. The spinal cord signal intensity is normal. The conus medullaris is at T12 -L1. IMPRESSION: 1. Moderate thoracic spondylosis. 2. DISH. Reviewed, dictated and finalized at location E. HOUSE ATTENDANT
--- NOTE | ~2023-05-03 | MR_ITS ---
MRI of the lumbar spine Clinical History: Radiculopathy Technique: Axial T2-weighted images, and sagittal T1-weighted, T2-weighted, and and T2 fat-sat images were acquired. COMPARISON: 04/07/2022 Findings: Stable minimal grade 1 retrolisthesis of L5 over S1. No fracture evident. No suspicious bon e marrow signal abnormality seen. At L1-L2, there is mild degenerative disc narrowing. There is minimal disc bulge with mild to moderat e facet arthropathy. No central canal stenosis or neural foraminal narrowing. At L2-L3, there is moderate degenerative disc narrowing. There is mild disc bulge with moderate facet arthropathy. No nena central canal stenosis. There is moderate to advanced bilateral neural foramin al narrowing. At L3-L4, disc bulge and severe facet arthropathy result in severe spinal canal stenosis/thecal sac c ompression. There is severe bilateral neural foraminal narrowing. At L4-L5, disc bulge and severe facet arthropathy result in severe spinal canal stenosis and thecal s ac compression. There is severe bilateral neural foraminal narrowing. At L5-S1, there is disc bulge and moderate facet arthropathy. No nena central canal stenosis. There is severe bilateral neural foraminal narrowing. Paravertebral soft tissues are unremarkable. Impression: Severe degenerative spondylosis at L3-L4, L4-L5, and L5-S1, as detailed above. Stable minimal grade 1 retrolisthesis of L5 over S1 Reviewed, dictated and finalized at [facility]. SITE MANAGER Impression: Severe degenerative spondylosis at L3-L4, L4-L5, and L5-S1, as detailed above. Stable minimal grade 1 retrolisthesis of L5 over S1
[2023-05-03 17:50] VITALS: BP 142/99; PULSE 81; RESP 16; TEMP 36.1; O2SAT 98
[2023-05-03 19:39] VITALS: BP 145/57; PULSE 73; RESP 18; TEMP 36.4; O2SAT 94
[2023-05-04] VITALS (28 sets, daily range): BP systolic 134–155; BP diastolic 60–90; PULSE 58–80; RESP 13–189; TEMP 35.5–36.6; O2SAT 93–98; BMI 28.8
[2023-05-04 02:21] LABS: Basophils Percent Auto 0.3 % (0.2-1.2); Eosinophils Percent Auto 0.3 % (0-4.4); Hematocrit 50.9 % (42.0-52.0); Immature Granulocyte Absolute 0.07 K/mm3 (0.00-0.031); Immature Granulocyte Percent A 0.7 % (0-0.5); Lymphocytes Absolute Auto 1.07 K/mm3 (0.9-3.2); Lymphocytes Percent Auto 10.9 % (18.3-44.2); Mean Corpuscular HGB Conc 33.4 g/dl (32-36); Mean Corpuscular Hemoglobin 32.5 pg (26-34); Mean Corpuscular Volume 97.3 fl (80-100); Mean Platelet Volume 11.5 fl (7.4-10.4); Monocytes Absolute Auto 0.6 K/mm3 (0.1-0.6); Monocytes Percent Auto 6.5 % (2.6-8.5); Neutrophils Percent Auto 81.3 % (45.5-73.1); Platelet Count Result 238 k/mm3 (150-375); Red Blood Count 5.23 M/mm3 (4.6-6.20); Red Cell Distribution Width 12.6 % (11.5-14.5); White Blood Count 9.8 K/mm3 (4.5-10.0)
--- NOTE | 2023-05-04 02:22 | ED.GENADULT ---
HPI - General Adult General Chief complaint: Unspecified Stated complaint: decreased sensation in right leg Time Seen by Provider: 05/04/23 01:47 History of Present Illness HPI narrative: patient is a 73-year-old gentleman who presents emergency department chief complaint of difficulty walking and decreased sensation in his right leg. Patient reports he has had issues with chronic back pain has seen Neurosurgery and had MRI and was referred to pain management for a steroid injection the patient had an injection done earlier today and reports that he cannot feel his right leg the patient states that over the last 3 days he has had multiple falls reports that he is on Coumadin and his Coumadin is currently held due to having the procedure today. The patient states that he feels uncomfortable being home and does not feel that he can safely take care of himself Related Data Home Medications Medication Instructions Recorded Confirmed levothyroxine 175 mcg tablet 175 mcg PO QAM 05/28/19 04/29/23 metformin 500 mg tablet,extended 1,000 mg PO BID 05/28/19 04/29/23 release 24hr (osmotic) insulin lispro 100 unit/mL See Rx Instructions .Route .COMPLEX 05/29/19 04/29/23 subcutaneous pen (Humalog KwikPen (U-100) Insulin) mecobalamin (vitamin B12) 1,000 1,000 mcg sublingual QAM 09/16/20 04/29/23 mcg disintegrating tablet,sublingual mrlyegcj-hlgy-uthsl acid 400 1 tablet PO DAILY 02/13/22 04/29/23 mcg-lycopene 600 mcg-ginkgo 120 mg tablet omeprazole 20 mg capsule,delayed 20 mg PO DAILY 06/08/22 04/29/23 release fenofibrate micronized 200 mg 200 mg PO DAILY 01/28/23 04/29/23 capsule gabapentin 300 mg capsule 300 mg PO BID 01/28/23 04/29/23 insulin glargine 100 unit/mL (3 See Rx Instructions .Route .COMPLEX 04/12/23 04/29/23 mL) subcutaneous pen (Lantus Solostar U-100 Insulin) semaglutide 1 mg/dose (4 mg/3 mL) 1.5 mg subcut WEEKLY 04/12/23 04/29/23 subcutaneous pen injector vibegron 75 mg tablet (Gemtesa) 75 mg PO DAILY 04/21/23 05/03/23 Allergies Allergy/AdvReac Type Severity Reaction Status Date / Time No Known Allergies Allergy Verified 05/04/23 05:57 Review of Systems Review of Systems: A 10 system review of systems was completed on the patient and is negative except for what is stated in the HPI. Nursing and ancillary documentation was reviewed. [facility] Past Medical History Medical History Bladder cancer BMI 29.0-29.9,adult BMI 30.0-30.9,adult BMI 31.0-31.9,adult BMI 32.0-32.9,adult Colon cancer screening Dysphagia Essential hypertension Fever Gastroesophageal reflux disease without esophagitis History of CVA (cerebrovascular accident) History of DVT (deep vein thrombosis) Long-term anticoagulation History of DVT in adulthood Hyperlipidemia Hypothyroidism Insulin dependent diabetes mellitus Left carotid artery occlusion Nephrolithiasis Obstructive sleep apnea Type 2 diabetes mellitus without complication, without long-term current use of insulin Surgical History Surgical History H/O lithotripsy History of biopsy of bladder History of cataract extraction History of knee replacement Partial right knee replacement Status post hip replacement Left side Status post placement of ureteral stent Right side Family History Family History Father Cancer Mother Cancer Sibling Hypertension Grandparent Diabetes mellitus Social History Social History Social History: The patient lives with his sleeve in girlfriend. The patient quit smoking 40+ years ago. The patient has 2 children. His son is the durable power optical instrument assembler for healthcare. The patient is retired from [employer]. The pat
[2023-05-04 02:32] LABS: Prothrombin Time 13.8 Seconds (11.1-14.7)
[2023-05-04 02:33] LABS: Partial Thromboplastin Time 23.7 SECONDS (22.3-36.8)
[2023-05-04 02:52] LABS: Erythrocyte Sedimentation Rate 1 mm/hr (0-20)
[2023-05-04 03:01] LABS: Alanine Aminotransferase 29 U/L (6-50); Albumin Level 4.5 g/dL (3.5-5.1); Alkaline Phosphatase 48 U/L (38-126); Anion Gap 8 mmol/L (8-16); Aspartate Amino Transferase 32 U/L (17-59); Bilirubin,Total 0.9 mg/dL (0.2-1.3); Blood Urea Nitrogen 25 mg/dL (9-20); CRP < 0.5 mg/dL (<1.0); Calcium 10.6 mg/dL (8.4-10.2); Carbon Dioxide 27 mmol/L (22-30); Chloride 102 mmol/L (98-107); Estimated CRCL calculation 71 ml/min; Estimated Glomerular Filt Rate > 60; Glucose 197 mg/dL (65-110); Potassium 4.4 mmol/L (3.4-5.0); Sodium 137 mmol/L (137-145)
[2023-05-04 04:21] LABS: Appearance Urine Clear (Clear); Bacteria Urine None Seen /hpf; Bilirubin Urine Negative (Negative); Blood Urine Negative (Negative); Color Urine Yellow (Yellow); Glucose Urine UA 2+ mg/dL (Negative); Ketones Urine Trace mg/dL (Negative); Leukocyte Esterase Ur Negative LEU/UL (Negative); Nitrate Urine Negative (Negative); Non Pathogenic Casts 0-2; Protein Urine Trace mg/dL (Negative); Specific Grav Ur 1.028 (1.001-1.035); Squamous Epithelial Cell Urine Occasional /hpf (Few); Urobilinogen Urine 0.2 mg/dL (<2.0)
[2023-05-04 04:23] LABS: Add Urine Microscopic? YES
--- NOTE | 2023-05-04 07:21 | PC.NURSE ---
Breakfast tray ordered for pt.
--- NOTE | 2023-05-04 09:15 | PC.NURSE ---
MRI ordered. Dexcom monitor removed from left upper arm.
--- NOTE | 2023-05-04 09:20 | ADMGEN ---
This patient, Roscoe Pérez Wong, was admitted to 3 Med Surg Room 315-01. Patient/family oriented to hospital policies and general routines including ID bracelet, bed and alarms, visiting hours, pain management, procedures, bathroom and other care routines, personal items, smoking policy, room service/diet, and visiting hours. Information on how to activate the Rapid Response Team has been discussed. Patient/Family are encouraged to report perceived risks to care and to ask questions if they do not understand what they are told or what they should do.
[2023-05-04 11:35] LABS: Glucose Point of Care 414 mg/dl (65-105)
--- NOTE | 2023-05-04 11:43 | PC.NURSE ---
To MRI per wheelchair.
--- NOTE | 2023-05-04 12:12 | PC.NURSE ---
Notified by MRI that patient is unable to tolerate procedure.
--- NOTE | 2023-05-04 12:23 | PC.NURSE ---
Returned to room per wheelchair from MRI.
[2023-05-04] MEDS: POTASSIUM CHLORIDE 10 MEQ ER TABLET 30 MEQ PO (13:30)
[2023-05-04] MEDS: LEVOTHYROXINE SODIUM 75 MCG TABLET PO (13:31)
[2023-05-04] MEDS: LEVOTHYROXINE SODIUM 100 MCG TABLET PO (13:31)
[2023-05-04] MEDS: PANTOPRAZOLE 40 MG TABLET PO (13:31)
[2023-05-04] MEDS: CYANOCOBALAMIN 1,000 MCG TABLET 1000 MCG PO (13:31)
[2023-05-04] MEDS: atenoloL 50 MG TABLET PO (13:31)
[2023-05-04] MEDS: hydroCHLOROthiazide 25 MG TABLET PO (13:31)
[2023-05-04] MEDS: HYDROcodone/acetaminophen (*CRX) 5-325 MG TABLET 1 TAB PO ×2 (13:32→20:59)
[2023-05-04] MEDS: INSULIN GLARGINE (*BKC) 100 UNITS/ML 45 UNITS SUB-Q (13:57)
[2023-05-04] MEDS: INSULIN ASPART (*BKC) 100 UNITS/ML 20 UNITS SUB-Q (13:58)
[2023-05-04] MEDS: LORazepam (*CRX) 1 MG TABLET PO (16:03)
[2023-05-04] MEDS: CELECOXIB 200 MG CAPSULE PO (16:03)
[2023-05-04] MEDS: WARFARIN (*PBKC) 5 MG TABLET BY MOUTH (16:03)
[2023-05-04] MEDS: GABAPENTIN 300 MG CAPSULE PO (16:03)
[2023-05-04 16:14] LABS: Glucose Point of Care 241 mg/dl (65-105)
[2023-05-04] MEDS: INSULIN ASPART (*BKC) 100 UNITS/ML SUB-Q ×2 (16:26→21:00)
--- NOTE | 2023-05-04 16:43 | PC.NURSE ---
To MRI per wheelchair. Premedicated with Ativan 1mg po at 1602.
--- NOTE | 2023-05-04 17:15 | PC.NURSE ---
Notified by Amadeo in MRI, regarding patients inability to complete imaging.
--- NOTE | 2023-05-04 17:27 | PM.IMHP ---
H&P: HPI History of Present Illness Date/Time: 05/04/23 17:27 Chief Complaint: Falls Narrative: patient is a 73-year-old gentleman who presents emergency department chief complaint of difficulty walking and decreased sensation in his right leg.? Patient reports he has had issues with chronic back pain has seen Neurosurgery and had MRI and was referred to pain management for a steroid injection the patient had an injection done earlier yesterday and reports that he cannot feel his right leg the patient states that over the last 3 days he has had multiple falls reports that he is on Coumadin and his Coumadin is currently held due to having the procedure.? The patient states that he feels uncomfortable being home and does not feel that he can safely take care of himself Review of Systems Review of Systems: - CONSTITUTIONAL: Denies weight loss, fever and chills. - HEENT: Denies changes in vision and hearing - RESPIRATORY: Denies SOB and cough. - CV: Denies palpitations and CP. - GI: Denies abdominal pain, nausea, vomiting and diarrhea. - : Denies dysuria and urinary frequency. - MSK: Denies myalgia and joint pain. - SKIN: Denies rash and pruritus. - NEUROLOGICAL: Denies headache and syncope. - PSYCHIATRIC: Denies recent changes in mood. Denies anxiety and depression. PMFSH Past Medical History Medical History Bladder cancer BMI 29.0-29.9,adult BMI 30.0-30.9,adult BMI 31.0-31.9,adult BMI 32.0-32.9,adult Colon cancer screening Dysphagia Essential hypertension Fever Gastroesophageal reflux disease without esophagitis History of CVA (cerebrovascular accident) History of DVT (deep vein thrombosis) Long-term anticoagulation History of DVT in adulthood Hyperlipidemia Hypothyroidism Insulin dependent diabetes mellitus Left carotid artery occlusion Nephrolithiasis Obstructive sleep apnea Type 2 diabetes mellitus without complication, without long-term current use of insulin Surgical History Surgical History H/O lithotripsy History of biopsy of bladder History of cataract extraction History of knee replacement Partial right knee replacement Status post hip replacement Left side Status post placement of ureteral stent Right side Family History Family History Father Cancer Mother Cancer Sibling Hypertension Grandparent Diabetes mellitus Social History Social History Social History: The patient lives with his sleeve in girlfriend. The patient quit smoking 40+ years ago. The patient has 2 children. His son is the durable power consumer attorney for healthcare. The patient is retired from [employer]. 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 Patient occasionally has a beer on the weekend. Maybe 3 or 4 beers a week. Patient denies any marijuana or illicit drugs. Smoking packs per day: 1 Smoking cigarettes per day: 20.0 Years smoked: 10 Smoking pack-years: 10.00 Smoking status: Former smoker Second hand tobacco smoke exposure: No Alcohol intake: current Drinks per week: 4 Alcohol use details: BEERS Substance use: never Substance use type: does not use Do You Feel Safe in your Home?: Yes Lack of Transportation: No Lack of Food: Never True Current Housing: I Have Housing Concerned About Future Housing: No Difficulty Paying Gas/Electric Bills: No Difficulty Paying for Meds: No Currently Unemployed: No Education: Trade/Vocational Certificate Difficulty w/ Childcare or Family Care: No Living arrangements: alone Occupation/Education: retired Additional occupation/education comments: [employer]. Gender identity (if verbalized by the patient): Male Sexual Orientation
[2023-05-04 18:46] LABS: Hemoglobin A1C 7.7 % (<5.7)
[2023-05-04] MEDS: ROSUVASTATIN 10 MG TABLET PO (20:59)
[2023-05-04] MEDS: INSULIN GLARGINE (*BKC) 100 UNITS/ML 70 UNITS SUB-Q (21:00)
[2023-05-04 21:33] LABS: Glucose Point of Care 320 mg/dl (65-105)
[2023-05-05] MEDS: LEVOTHYROXINE SODIUM 100 MCG TABLET PO (05:46)
[2023-05-05] MEDS: LEVOTHYROXINE SODIUM 75 MCG TABLET PO (05:46)
[2023-05-05 06:00] VITALS: BP 114/63; PULSE 68; RESP 18; TEMP 36.9; O2SAT 97
[2023-05-05 06:20] LABS: INR 1.1; Prothrombin Time 14.8 Seconds (11.1-14.7)
[2023-05-05 08:03] LABS: Glucose Point of Care 185 mg/dl (65-105)
[2023-05-05] MEDS: LORazepam INJ (*CRX) 2 MG/ML VIAL 1 MG IV PUSH (08:18)
[2023-05-05 09:22] VITALS: PULSE 72
[2023-05-05] MEDS: CELECOXIB 200 MG CAPSULE PO ×2 (09:22→16:39)
[2023-05-05] MEDS: POTASSIUM CHLORIDE 10 MEQ ER TABLET 30 MEQ PO (09:22)
[2023-05-05] MEDS: atenoloL 50 MG TABLET PO (09:22)
[2023-05-05] MEDS: hydroCHLOROthiazide 25 MG TABLET PO (09:23)
[2023-05-05] MEDS: PANTOPRAZOLE 40 MG TABLET PO (09:23)
[2023-05-05] MEDS: INSULIN GLARGINE (*BKC) 100 UNITS/ML 36 UNITS SUB-Q (09:23)
[2023-05-05] MEDS: GABAPENTIN 300 MG CAPSULE PO ×2 (09:23→16:39)
[2023-05-05] MEDS: CYANOCOBALAMIN 1,000 MCG TABLET 1000 MCG PO (09:23)
[2023-05-05] MEDS: INSULIN ASPART (*BKC) 100 UNITS/ML 15 UNITS SUB-Q ×3 (09:25→16:40)
[2023-05-05 11:55] LABS: Glucose Point of Care 277 mg/dl (65-105)
[2023-05-05] MEDS: INSULIN ASPART (*BKC) 100 UNITS/ML SUB-Q ×3 (12:12→20:35)
[2023-05-05 14:00] VITALS: BP 145/67; PULSE 64; RESP 18; TEMP 36.6; O2SAT 98
--- NOTE | 2023-05-05 16:02 | PM.IMPN ---
Progress Note: A&P Assessment and Plan (1) Falls frequently: Code(s): R29.6 - Repeated falls Status: Acute (2) Back pain: Code(s): M54.9 - Dorsalgia, unspecified Status: Acute (3) Lumbosacral radiculopathy: Code(s): M54.17 - Radiculopathy, lumbosacral region Status: Acute (4) [facility] current use of anticoagulant: Code(s): Z79.01 - [facility] (current) use of anticoagulants Status: Acute (5) Subtherapeutic international normalized ratio (INR): Code(s): R79.1 - Abnormal coagulation profile Status: Acute (6) Numbness: Code(s): R20.0 - Anesthesia of skin Status: Acute Plan 73M w/ PMH bladder cancer, hx of DVT, GERD, HTN, hx of CVA w/o residual deficit, HLD, hypothyroidism, IDDM presented with decreased sensation of RLE post b/l L4-5, L5-S1 transforaminal epidural steroid injection under fluoroscopic guidance with contrast control with Dr. Kitchen on 05/03. Admitted on 05/04 Pt reports 10% improved sensation on RLE. no focal deficits otherwise. pending neurosurgery consultation, although MRI lumbar spine not demonstrating any acute or new findings compared to his known, severe spinal stenosis and lumbosacral radiculopathy which as a result. PT/OT consult. The pt does not believe he can safely return home in his current condition due to recent falls. Care coordination to hopefully find placement for rehab stay. Subtherapeutic INR. Coumadin restarted on admission as it was being held for the procedure. INR daily. No need to bridge, the pt's DVT dx is older than 3 months. full code. coumadin home dosing restarted. Subjective Date/time seen: 05/05/23 16:02 Interval history: NAOE. pt believes his numbness is 10% better, he denies incontinence of any type. he is amenable to SNF for a short term stay Review of Systems Review of Systems: All systems reviewed & are unremarkable except as noted in HPI and below Exam Const: General: comfortable and no acute distress Eyes: Pupils: Equal, round and reactive pupils present Resp: Effort & Inspection: normal respiratory effort Auscultation: clear to auscultation bilaterally, no crackles, no rales and no rhonchi Cardio: Rate: regular rate Rhythm: regular rhythm Heart sounds: no gallops, no murmurs and no rubs GI: GI Palp: Yes Soft to palpation and No Tenderness to palpation present (GI) Neuro: General: gait normal (unsteady) and No deep tendon reflexes 2+ bilaterally Speech: normal speech Motor exam (neuro): 5/5 motor strength present throughout Sensory Exam: normal sensation (decreased sensation RLE) Extrem: General: no edema Objective Data Vital Signs Vital Signs: Vital Signs - 24 hr 05/04/23 22:00 05/04/23 20:00 05/05/23 06:00 Temperature 97.4 F L 98.4 F Pulse Rate 58 L 68 Respiratory Rate 18 18 Blood Pressure 137/70 114/63 Pulse Oximetry 96 97 Oxygen Delivery Room Air 05/04/23 20:16 05/05/23 09:22 05/05/23 14:00 Temperature 97.8 F Pulse Rate 72 64 Respiratory Rate 18 Blood Pressure 145/67 H Pulse Oximetry 97 98 Oxygen Delivery Room Air Intake/Output Intake/Output: Intake & Output 05/02/23 05/03/23 05/04/23 05/05/23 23:59 23:59 23:59 23:59 Intake Total 1100 480 Output Total 1875 850 Balance -775 -370 Meds/Results Medications: Active Medications Generic Name Dose Route Start Last Admin Trade Name Freq PRN Reason Stop Dose Admin Hydrocodone Bitart/Acetaminophen 1 tab 05/04/23 12:53 05/04/23 20:59 Hydrocodone/Acetaminophen (*Crx) 5-325 Mg Tablet PO 1 tab Q8H PRN Administration pain Atenolol 50 mg 05/04/23 13:15 05/05/23 09:22 Atenolol 50 Mg Tablet PO 50 mg QAM LI Administration Celecoxib 200 mg 05/04/23 17:00 05/05/23 09:22 Celecoxib 200 Mg Capsule PO 200 mg BID LI Administration Cyanocobalamin 1,000 mcg 05/04/23 13:05 05/05/23 09:23 Cyanocobalamin 1,000 Mcg Tablet PO 06/04/23 13:04 1,00
[2023-05-05] MEDS: WARFARIN (*PBKC) 3 MG TABLET BY MOUTH (16:39)
[2023-05-05 16:47] LABS: Glucose Point of Care 255 mg/dl (65-105)
--- NOTE | 2023-05-05 17:30 | WPDNEUROSGCN ---
Assessment and Plan Assessment and plan (1) Lumbar stenosis with neurogenic claudication: Code(s): M48.062 - Spinal stenosis, lumbar region with neurogenic claudication Status: Acute (2) Right foot drop: Code(s): M21.371 - Foot drop, right foot Status: Acute Plan Mr. Pérez is a 73-year-old male with history of hypertension, diabetes, bladder cancer, previous L5-S1 laminectomy, and DVT on Coumadin who was admitted to the hospital on Wednesday following transforaminal epidural steroid injections for some worsening numbness in his right foot and a sense of imbalance and feeling unsafe being at home alone. On physical exam, he does have a right footdrop which he states has been present for least the last month. MRI lumbar spine shows severe central stenosis at L3-4 and L4-5 with right-sided synovial cysts at these levels. The amount of stenosis appears similar to his MRI from last year. Given that he has failed physical therapy and pain management injections, I do think it is reasonable to proceed with surgery in the form of lumbar laminectomies at L3-4 and L4-5. However, I do not think this needs to be done emergently as an inpatient. He has been recommended a short-stay rehab for his mobility. I am working on getting him scheduled to see me in clinic in early May to discuss surgery in detail with the patient and his family. Plan: -Ok to discharge from the hospital to rehab -My office will contact him to schedule follow up within the next few weeks with me to discuss surgery in more detail Consult date: 05/05/23 HPI: Roscoe Pérez . is a 73 year old male with history of DVT on Coumadin, hypertension, diabetes, and previous L5-S1 laminectomy who presented to the hospital on Wednesday after developing worsening numbness in his right leg and instability following lumbar epidural steroid injection with Dr. Kitchen. He had been following with Dr. Mitchell for issues related to lumbar stenosis. At her last visit in January, she had recommended pursuing epidural steroid injections through Pain Management. He has had several injections with Dr. Kitchen including radiofrequency ablations, SI joint injection, and right L4-5 and L5-S1 transforaminal epidural steroid injections. After the epidural steroid injections in January, he had improvement in his symptoms for several weeks. Around , he developed a worsening sense of balance, having sustained several falls, and noticed difficulty lifting up his right foot. He returned for a 2nd set of epidural steroid injections which she had 2 days ago. Upon his return home, he had another fall, and he ultimately went to the emergency room as he felt unsafe being at home alone. He has numbness in the right leg from the thigh down. Since his injection on Wednesday, the numbness in the bottom of his foot is worse. He has some symptoms on the left side but to a lesser degree. He has a fair amount of pain in his low back and in the buttock, mostly from his fall. He has been working with physical therapy in the hospital who has recommended short course of rehab. He has also had several courses of physical therapy earlier in the year for his symptoms. He has existing bladder issues related to a history of bladder cancer. He has follow-up scheduled with his urologist next week. Review of Systems Review of Systems: All systems reviewed & are unremarkable except as noted in HPI and below PMFSH Past Medical History Medical History Bladder cancer BMI 29.0-29.9,adult BMI 30.0-30.9,adult BMI 31.0-31.9,adult BMI 32.0-32.9,adult Colon cancer screening Dysphagia Essential hypertension Fever Gastroesophageal reflux disease without esophagitis History of CVA (cerebrovascular accident) History of DVT (deep vein thrombosis) Long-term anticoagulation History of DVT in adulthood Hyperlipidemia Hypothyroidism Insulin dependent d
[2023-05-05 20:00] VITALS: PULSE 70; RESP 16; O2SAT 96
[2023-05-05 20:17] LABS: Glucose Point of Care 227 mg/dl (65-105)
[2023-05-05] MEDS: INSULIN GLARGINE (*BKC) 100 UNITS/ML 70 UNITS SUB-Q (20:35)
[2023-05-05 20:36] VITALS: BP 116/56; PULSE 70; RESP 16; TEMP 36.5; O2SAT 96
[2023-05-05] MEDS: ROSUVASTATIN 10 MG TABLET PO (20:38)
[2023-05-06] MEDS: LEVOTHYROXINE SODIUM 100 MCG TABLET PO (04:58)
[2023-05-06] MEDS: LEVOTHYROXINE SODIUM 75 MCG TABLET PO (04:58)
[2023-05-06 05:12] VITALS: BP 149/64; PULSE 61; RESP 18; TEMP 36.1; O2SAT 100
[2023-05-06 06:16] LABS: INR 1.2; Prothrombin Time 15.3 Seconds (11.1-14.7)
[2023-05-06 07:41] LABS: Glucose Point of Care 119 mg/dl (65-105)
[2023-05-06 08:00] VITALS: PULSE 62; RESP 18; O2SAT 100
[2023-05-06 08:50] VITALS: PULSE 62
[2023-05-06] MEDS: hydroCHLOROthiazide 25 MG TABLET PO (08:50)
[2023-05-06] MEDS: PANTOPRAZOLE 40 MG TABLET PO (08:50)
[2023-05-06] MEDS: CELECOXIB 200 MG CAPSULE PO (08:50)
[2023-05-06] MEDS: atenoloL 50 MG TABLET PO (08:50)
[2023-05-06] MEDS: POTASSIUM CHLORIDE 10 MEQ ER TABLET 30 MEQ PO (08:50)
[2023-05-06] MEDS: GABAPENTIN 300 MG CAPSULE PO (08:50)
[2023-05-06] MEDS: CYANOCOBALAMIN 1,000 MCG TABLET 1000 MCG PO (08:51)
[2023-05-06] MEDS: INSULIN GLARGINE (*BKC) 100 UNITS/ML 36 UNITS SUB-Q (08:55)
[2023-05-06] MEDS: INSULIN ASPART (*BKC) 100 UNITS/ML 15 UNITS SUB-Q (08:55)
--- NOTE | 2023-05-06 10:33 | PM.DS ---
DS: Admitting Diagnosis Discharge Date 05/06/23 Admitting Diagnosis right leg numbness DS: Discharge Diagnosis Discharge Diagnosis (1) Right foot drop: Code(s): M21.371 - Foot drop, right foot Status: Acute (2) Numbness: Code(s): R20.0 - Anesthesia of skin Status: Acute (3) Falls frequently: Code(s): R29.6 - Repeated falls Status: Acute (4) Back pain: Code(s): M54.9 - Dorsalgia, unspecified Status: Acute DS: Summary Hospital Course Hospital Course: 73M w/ PMH bladder cancer, hx of DVT on coumadin, GERD, HTN, hx of CVA w/o residual deficit, HLD, hypothyroidism, IDDM previous L5-S1 laminectomy presented with decreased sensation and foot drop of RLE post b/l L4-5, L5-S1 transforaminal epidural steroid injection under fluoroscopic guidance with contrast control with Dr. Kitchen on 05/03. Admitted on 05/04 Over 2 days his foot drop and sensation improved. An MRI lumbar spine was largely unchanged from prior MRI, reading as follows: Stable minimal grade 1 retrolisthesis of L5 over S1. No fracture evident. No suspicious bone marrow signal abnormality seen. At L1-L2, there is mild degenerative disc narrowing. There is minimal disc bulge with mild to moderate facet arthropathy. No central canal stenosis or neural foraminal narrowing. At L2-L3, there is moderate degenerative disc narrowing. There is mild disc bulge with moderate facet arthropathy. No nena central canal stenosis. There is moderate to advanced bilateral neural foraminal narrowing. At L3-L4, disc bulge and severe facet arthropathy result in severe spinal canal stenosis/thecal sac compression. There is severe bilateral neural foraminal narrowing. At L4-L5, disc bulge and severe facet arthropathy result in severe spinal canal stenosis and thecal sac compression. There is severe bilateral neural foraminal narrowing. At L5-S1, there is disc bulge and moderate facet arthropathy. No nena central canal stenosis. There is severe bilateral neural foraminal narrowing. Paravertebral soft tissues are unremarkable. Pt was evaluted by Dr. Emeli Allison neurosurgery. He is being setup with outpatient follow up to discuss surgery in detail. The pt is in agreement with this plan. Otherwise he had no med changes, his coumadin was restarted as it was held due to the recent transforaminal epidural steroid injections. Repeat INR in 2 days and he is to follow up with his PCP within 7 days. On 05/06 he is wv'ed in stable condition to [facility] due to recent falls and complaint of imbalance. More than 30 minutes spent on discharge planning and documentation. Time Spent with Patient Time attestation: Total time spent providing and/or coordinating discharge services: Exam Const: General: comfortable and no acute distress Eyes: Pupils: Equal, round and reactive pupils present Neck: Neck: supple Resp: Effort & Inspection: normal respiratory effort Auscultation: clear to auscultation bilaterally, no crackles, no rales and no rhonchi Cardio: Rate: regular rate Rhythm: regular rhythm Heart sounds: no gallops, no murmurs and no rubs GI: GI Palp: Yes Soft to palpation and No Tenderness to palpation present (GI) Neuro: General: gait normal (unsteady) Motor exam (neuro): 5/5 motor strength present throughout Sensory Exam: normal sensation (intact to light touch) DS: Data Data Completed and Pending Labs on day of discharge: Labs from last 24 hours 05/06/23 05/06/23 05/05/23 07:25 05:58 20:05 PT 15.3 H INR 1.2 POC Capillary Glucose 119 H 227 H 05/05/23 05/05/23 16:16 11:31 PT INR POC Capillary Glucose 255 H 277 H Discharge Plan Discharge Attending physician on discharge: Perla Bay Consulting providers: Uri Thomas Discharging Clinician: Perla Bay Patient Disposition: [facility] Activity: september shower Diet: heart healthy and diabetic Discharge Medications
[2023-05-06] MEDS: IBUPROFEN 400 MG TABLET 800 MG PO (11:09)
[2023-05-06 11:31] LABS: Glucose Point of Care 213 mg/dl (65-105)
--- NOTE | 2023-05-06 13:20 | PC.NURSE ---
Telephone report called to MATTHEW Clayton at [facility].
== END 2023-05-06 12:42 | DRG 552 ==
LOC: ANHED 05-04 06:55 → ANH3MEDSUR 05-04 08:03
PROVIDERS: Internal Medicine; Admitting Provider Internal Medicine; Emergency Provider Emergency Medicine; PCP Family Medicine; Visit Provider General Practice
DX: M48.062 Spinal stenosis, lumbar region with neurogenic claudication (principal); M47.26 Other spondylosis with radiculopathy, lumbar region; R20.0 Anesthesia of skin; I65.22 Occlusion and stenosis of left carotid artery; I10 Essential (primary) hypertension; K21.9 Gastro-esophageal reflux disease without esophagitis; E78.5 Hyperlipidemia, unspecified; E03.9 Hypothyroidism, unspecified; M21.371 Foot drop, right foot; R29.6 Repeated falls; G89.29 Other chronic pain; G47.33 Obstructive sleep apnea (adult) (pediatric); F51.9 Sleep disorder not due to a substance or known physiological condition, unspecified; Z96.651 Presence of right artificial knee joint; Z96.642 Presence of left artificial hip joint; Z79.01 Long term (current) use of anticoagulants; Z85.51 Personal history of malignant neoplasm of bladder; Z86.73 Personal history of transient ischemic attack (TIA), and cerebral infarction without residual deficits; Z86.718 Personal history of other venous thrombosis and embolism; Z87.891 Personal history of nicotine dependence
CPT/HCPCS: 36415; 72131; 72148; 72157; 80053; 81001; 82948; 83036; 85025; 85610; 85652; 85730; 86140; 87086; 87088; 96374; 97162; 97165; 99199; 99285; A9270; G0378; J1815; J2060

== ENCOUNTER 2023-06-30 00:58 | Day surgery (SDC) | payer MEDICARE, SELFPAY ==
[2023-06-16 11:14] VITALS: BMI 29.0
--- NOTE | 2023-06-16 11:48 | PC.NURSE ---
Report to the Outpatient Waiting Room, entrance under the green pavilion located off [facility], at time __6:00AM on date ___06/30/23____. Planned Procedure Time: __7:30AM . Time changes happen often and if your time is changed the preop area will call you the afternoon before. - You and your visitor will be asked to self-screen and do not enter if you have any COVID symptoms. - A mask is optional within the hospital at this time. Patients may have clear liquids (water, carbonated beverages, clear teas, apple juice) until 3 hours prior to surgery with a maximum of 20 ounces. - No food from midnight until time of surgery. Take the following medications with a SIP of water the morning of surgery: __ATENOLOL, LEVOTHYROXINE, GABAPENTIN DO NOT STOP ANY OF YOUR OTHER PRESCRIPTION MEDICATIONS PRIOR TO SURGERY ?EXCEPT THE FOLLOWING Medications to discontinue per physician ___HOLD COUMADIN & CELEBREX 7 DAYS PRE-OP PER DR CRUZ(PER PATIENT)- LAST DOSE 06/22/23. HOLD ALL VITAMINS/SUPPLEMENTS 3 DAYS PRE-OP PER ANESTHESIA- LAST DOSE 06/26/23. Please no make-up, nail danish, hairspray, perfume, deodorant, or body powder the day of surgery. No jewelry (including any body piercings) or valuables the day of surgery, leave them at home. Please take a shower or bath the night before, or the morning of, surgery with an antibacterial soap. Wear comfortable, loose fitting clothing. - Jewelry must be removed prior to entering the operating room. Rings and piercings that are not removed may be cut off. - The hospital will not accept responsibility for valuables. - Please leave all valuables, including medications, at home the day of surgery. If you are going home after surgery, a licensed driver courier must drive you home. - NO public transportation without another adult if you receive anesthesia. - We recommend that an adult stay with you for 24 hours following discharge. - We also recommend that you do not drive, make important decision, drink alcoholic beverages, or take any drugs that were not prescribed by your health care provider for at least 24 hours after your discharge time. Follow any additional instructions given to you from your surgeon. If you or anyone in your household have experienced Covid symptoms in the past week, please notify your surgeon or the nurse liaison at the phone number below for possible testing. Telephone instructions given to ___PATIENT and asked if any additional questions and then verbalized understanding. Patient advised to call surgeon office or pre surgery nurse liaison [phone] if any additional questions.
[2023-06-30] VITALS (12 sets, daily range): BP systolic 119–156; BP diastolic 57–74; PULSE 64–98; RESP 12–20; TEMP 36.2–36.7; O2SAT 92–100
--- NOTE | ~2023-06-30 | XR_ITS ---
EXAMINATION: XR fluoroscopy no charge DATE: 06/30/2023 13:58 INDICATION: Lumbar stenosis with neurogenic claudication. TECHNIQUE: A single intraoperative fluoroscopic view of the lumbar spine was obtained. I was not pres ent. Fluoroscopy exposure time was 5 seconds. COMPARISON: Lumbar spine MRI 05/05/2023 FINDINGS: There is severe lower lumbar spondylosis. Instruments overlie the posterior elements in low er lumbar spine. IMPRESSION: 1. Severe lower lumbar spondylosis. Reviewed, dictated and finalized at location A. ICAL SECRETARY
[2023-06-30 12:05] LABS: Glucose Point of Care 216 mg/dl (65-105)
[2023-06-30 12:14] LABS: Partial Thromboplastin Time 26.7 SECONDS (22.3-36.8); Prothrombin Time 13.6 Seconds (11.1-14.7)
--- NOTE | 2023-06-30 12:14 | WPDANESEPPF ---
Anes - Initial Pre Proc Eval Procedure: Operation Date: 06/30/23 13:30 Proposed Procedures p L3-4, L4-5 Laminectomies - Emeli Allison MD Date/Time: 06/30/23 12:14 Surgeon: Emeli Allison MD Pre Op Diagnosis: Lumbar Stenosis with Neurogenic Claudication Patient Data Age: 73 Gender: M Height: 1.85 m Weight: 98.2 kg Last Vital Signs Temp 98.1 F 06/30/23 12:04 Pulse 64 06/30/23 12:04 Resp 16 06/30/23 12:04 BP 145/69 H 06/30/23 12:04 Pulse Ox 96 06/30/23 12:04 O2 Del Method Room Air 06/30/23 12:04 Allergies Allergy/AdvReac Type Severity Reaction Status Date / Time No Known Allergies Allergy Verified 06/30/23 11:35 Home Medications Medication Instructions Recorded Confirmed Type levothyroxine 175 mcg tablet 175 mcg PO QAM 05/28/19 06/30/23 History metformin 500 mg tablet,extended 1,000 mg PO BID 05/28/19 06/30/23 History release 24hr (osmotic) insulin lispro 100 unit/mL See Rx Instructions .Route .COMPLEX 05/29/19 06/30/23 History subcutaneous pen (Humalog KwikPen (U-100) Insulin) mecobalamin (vitamin B12) 1,000 1,000 mcg sublingual QAM 09/16/20 06/30/23 History mcg disintegrating tablet,sublingual kvjgktla-lslu-ekbnc acid 400 1 tablet PO DAILY 02/13/22 06/30/23 History mcg-lycopene 600 mcg-ginkgo 120 mg tablet celecoxib 200 mg capsule 200 mg PO BID #180 caps 06/08/22 06/16/23 Rx omeprazole 20 mg capsule,delayed 20 mg PO DAILY 06/08/22 06/30/23 History release warfarin 6 mg tablet See Rx Instructions .Route 01/21/23 06/30/23 Rx .COMPLEX #30 tabs atenolol 50 mg tablet 50 mg PO QAM #90 tabs 01/22/23 06/30/23 Rx gabapentin 300 mg capsule 300 mg PO BID 01/28/23 06/30/23 History hydrochlorothiazide 25 mg tablet 25 mg PO QAM #90 tabs 02/11/23 06/30/23 Rx rosuvastatin 10 mg tablet 10 mg PO HS #90 tabs 04/11/23 06/30/23 Rx semaglutide 1 mg/dose (4 mg/3 mL) 1.5 mg subcut WEEKLY 04/12/23 06/30/23 History subcutaneous pen injector vibegron 75 mg tablet (Gemtesa) See Rx Instructions .Route .COMPLEX 04/21/23 06/30/23 History warfarin 5 mg tablet See Rx Instructions .Route 04/26/23 06/30/23 Rx .COMPLEX #90 tabs potassium chloride 10 mEq 30 meq PO DAILY #90 tabs 05/02/23 06/30/23 Rx tablet,extended release fluorouracil 5 % topical solution 1 applic topical BID 06/16/23 06/30/23 History insulin glargine 100 unit/mL (3 45 unit subcut DAILY 06/16/23 06/30/23 History mL) subcutaneous pen (Lantus Solostar U-100 Insulin) insulin glargine 100 unit/mL (3 85 unit subcut HS 06/16/23 06/30/23 History mL) subcutaneous pen (Lantus Solostar U-100 Insulin) mirabegron 50 mg tablet,extended 50 mg PO HS 06/16/23 06/30/23 History release 24 hr (Myrbetriq) Laboratory Tests 06/30/23 06/30/23 11:58 12:01 PT Pending INR Pending APTT Pending POC Capillary Glucose 216 H mg/dl (65-105) Patient hx anesthesia problems: none Family hx anesthesia problems: none Results Review: All pre-operative results and documents have been reviewed as part of the pre-operative evaluation. [facility] Past Medical History Medical History (Updated 05/21/23 @ 10:06 by Larry Morel MD) Bladder cancer Colon cancer screening Dysphagia Essential hypertension Fever Gastroesophageal reflux disease without esophagitis Hematuria History of CVA (cerebrovascular accident) History of DVT (deep vein thrombosis) Long-term anticoagulation History of DVT in adulthood History of esophageal dilatation Hyperlipidemia Hypothyroidism Insulin dependent diabetes mellitus Left carotid artery occlusion Nephrolithiasis Obstructive sleep apnea Pneumonia due to 2019 novel coronavirus Type 2 diabetes mellitus without complication, without long-term current use of insulin Surgical History Surgical History H/O lithotripsy History of biopsy of bladder History of cataract extract
--- NOTE | 2023-06-30 12:28 | WPDHPUPDATE1 ---
History and Physical Update Update Date/Time: 06/30/23 12:28 History and Physical has been reviewed, including an updated exam of the patient. There are NO changes in the patient's condition. Risks, benefits, and alternatives have been discussed and questions answered. Patient agrees to proceed with procedure.
--- NOTE | 2023-06-30 12:28 | PM.IMHP ---
H&P: HPI History of Present Illness Date/Time: 06/30/23 12:28 Chief Complaint: back pain, lower-extremity numbness, right foot drop Narrative: Mr. Pérez is a 73 year old male with history of DVT on Coumadin, hypertension, diabetes, and previous L5-S1 laminectomy who presents today for follow-up of his recent inpatient stay.? He had presented to the hospital on May 03 after developing worsening numbness in his right leg and instability following and lumbar epidural steroid injection with Dr. Kitchen.? He has been following with Dr. Mitchell for issues related to lumbar stenosis.? At her last visit in January, she had recommended pursuing epidural steroid injections through Pain Management.? He has had several injections with Dr. Kitchen including radiofrequency ablations, SI joint injection, and right L4-5 and L5-S1 transforaminal epidural steroid injections.? After the injections in January, he had improvement in his symptoms for several weeks.? Around , he developed a worsening sense of balance, having sustained several falls, and noticed difficulty lifting up his right foot.? He has 2nd set of epidural steroid injections, following which his symptoms worsened.? He was discharged to a short course of rehab and has since returned home.? Continues to ambulate with a walker.? He describes pain across the lower back and numbness in the feet, worse on the right side.? While his foot weakness is improving, it is still fairly significant and causing him difficulty with ambulation.? He denies any bowel or bladder changes over the last few months.? It should be recalled that he does have some existing bladder issues related to his history of bladder cancer. Review of Systems Review of Systems: All systems reviewed & are unremarkable except as noted in HPI and below PMFSH Past Medical History Medical History (Updated 05/21/23 @ 10:06 by Larry Morel MD) Bladder cancer Colon cancer screening Dysphagia Essential hypertension Fever Gastroesophageal reflux disease without esophagitis Hematuria History of CVA (cerebrovascular accident) History of DVT (deep vein thrombosis) Long-term anticoagulation History of DVT in adulthood History of esophageal dilatation Hyperlipidemia Hypothyroidism Insulin dependent diabetes mellitus Left carotid artery occlusion Nephrolithiasis Obstructive sleep apnea Pneumonia due to 2019 novel coronavirus Type 2 diabetes mellitus without complication, without long-term current use of insulin Surgical History Surgical History H/O lithotripsy History of biopsy of bladder History of cataract extraction History of knee replacement Partial right knee replacement Status post hip replacement Left side Status post placement of ureteral stent Right side Family History Family History Father Cancer Mother Cancer Grandparent Diabetes mellitus Social History Social History Social History: The patient lives with his sleeve in girlfriend. The patient quit smoking 40+ years ago. The patient has 2 children. His son is the durable power claim attorney for healthcare. The patient is retired from [employer]. 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 Patient occasionally has a beer on the weekend. Maybe 3 or 4 beers a week. Patient denies any marijuana or illicit drugs. Smoking packs per day: 1.5 Smoking cigarettes per day: 30.0 Years smoked: 10 Smoking pack-years: 15.00 Smoking status: Former smoker Tobacco type: cigarettes Second hand tobacco smoke exposure: No Smoking end date: 11/14/81 Alcohol intake: current Drinks per week: 4 Alcohol use details: BEERS Substance use: never Substance use type: does not use Do You Feel Safe in your Home?: Yes Lack of Transportatio
[2023-06-30] MEDS: ceFAZolin 2 GM/D5W 50 ML 2 GM/50 ML BAG IVPB ×2 (12:51→20:41)
[2023-06-30] MEDS: BUPIVACAINE/EPINEPHRINE 0.5% 30 ML VIAL INFILTRATE (13:28)
[2023-06-30] MEDS: LACTATED RINGERS 1,000 ML 30 ML IV CONT (15:42)
--- NOTE | 2023-06-30 15:44 | PM.OP ---
Procedure Note - Brief Procedure Note - Brief Date of procedure: 06/30/23 Lumbar Stenosis with Neurogenic Claudication Post-op diagnosis: Same Procedure performed: L3-4, L4-5 laminectomies Surgeon: Emeli Allison MD Anesthesia: GETA Description of procedure: Laminectomies at L3-4 and L4-5 without complication Estimated blood loss (mL): 200 Drains: Yes Packing: No Pathology: None sent Complications: None Condition: Stable Disposition: PACU
--- NOTE | 2023-06-30 15:51 | P.OP_ITS ---
Procedure Note - Detailed Date of Procedure 06/30/23 Pre-op Diagnosis Lumbar Stenosis with Neurogenic Claudication Post-op Diagnosis Same Procedure Performed 1. L3-4, L4-5 laminectomies, medial facetectomies, foraminotomies 2. Use of microscope for microsurgical dissection 3. Use of C-arm for fluoroscopy Surgeon Emeli Allison MD Cardiopulmonary Specialist Eliza Anesthesia General Indications Mr. Hernandez is a 73-year-old male with a long history of back pain radiating into the buttocks with more recent development of a right foot drop and numbness in the distal leg. MRI lumbar spine showed severe central stenosis at L3-4 and L4- 5.?Surgery in the form of L3-4 and L4-5 laminectomies were recommended. Risks were discussed with the patient including bleeding, pain, infection, CSF leak, weakness, paresthesias, nerve damage, failure to relieve symptoms, and anesthetic complications were discussed. The patient provided written informed consent to proceed.? Description of Procedure The patient was brought to the operating room, and general anesthesia was induced. The patient was placed prone on the open Suresh table, and all pressure points were padded. Compression devices were placed on the patient's calves. The skin was cleaned with alcohol. The C-arm was brought onto the field to localize the appropriate disc space and assist with incisional planning. The area was prepped and draped in usual sterile fashion. A time out was conducted, and pre-operative antibiotics were administered. Local anesthesia was injected into the planned incision. A midline skin incision was made with a 10-blade scalpel, and dissection was carried down with the monopolar cautery to open the fascia. Once the spinous processes were located, a subperiosteal dissection was performed to expose the laminae bilaterally. A self-retaining retractor was placed. The C-arm was brought in to confirm the correct level. A Leksell rongeur was used to remove the spinous processes and posterior elements. The microscope was draped and brought into the field for microsurgical dissection. The high-speed drill was used to thin the laminae to the ligamentum flavum. A curved currette was used to separate the ligament from the bone. Kerrison rongeurs were then used to remove remaining laminae and ligamentum flavum. Medial facetectomies and foraminotomies were performed at L3-4 and L4-5 with the kerrison as well. The facet joints were undercut to widen the spinal canal. The Kerrison was then passed into the foraminae to ensure they were open. There was some adherent tissue to the dura on the left side of the spinal canal at L3-4 in particular which was left in place to avoid creating a durotomy; however, the dura appeared well decompressed. Hemostasis was ensured, and the area was copiously irrigated. No evidence of CSF leak was noted. A hemovac drain was placed and tunneled inferiorly. The muscle was loosely approximated with 0-Vicryl. The fascia was closed with 0-Vicryl in an interrupted fashion. The soft tissue was again copiously irrigated. The dermis was closed with 2-0 and 3-0 interrupted Vicryl. The skin was closed with 3-0 running nylon. The drain was secured with a 3-0 nylon as well. Sterile dressings were applied. The patient was returned supine on the stretcher, extubated, and transferred to PACU without incident. Surgical codes: 15114, 65738, 27208 Estimated Blood Loss 200 Drains Yes Packing No Pathology None sent Complications None Condition Stable Disposition PACU [facility] Billing Surgery - Charge Forward: Surgery Billing
[2023-06-30 16:01] LABS: Glucose Point of Care 259 mg/dl (65-105)
[2023-06-30] MEDS: INSULIN HUMAN REGULAR (*BKC) 100 UNITS/ML IV PUSH (16:08)
[2023-06-30 16:48] LABS: Glucose Point of Care 210 mg/dl (65-105)
--- NOTE | 2023-06-30 17:13 | ADMGEN ---
This patient, Roscoe Pérez Sr., was admitted to Medical Room [facility] at 1713 from surgery. Patient/family oriented to hospital policies and general routines including ID bracelet, bed and alarms, visiting hours, pain management, procedures, bathroom and other care routines, personal items, smoking policy, room service/diet, and visiting hours. Information on how to activate the Rapid Response Team has been discussed. Patient/Family are encouraged to report perceived risks to care and to ask questions if they do not understand what they are told or what they should do.
[2023-06-30] MEDS: metFORMIN HCL XR 500 MG TAB.SR.24H 1000 MG PO (17:19)
[2023-06-30] MEDS: SODIUM CHLORIDE 0.9% IV 1,000 ML 100 ML IV CONT (17:19)
[2023-06-30] MEDS: GABAPENTIN 300 MG CAPSULE PO (17:19)
[2023-06-30] MEDS: DOCUSATE SODIUM 100 MG CAPSULE PO (20:40)
[2023-06-30] MEDS: ROSUVASTATIN 10 MG TABLET PO (20:41)
[2023-06-30] MEDS: MIRABEGRON 50 MG ER TABLET PO (20:41)
[2023-06-30] MEDS: INSULIN GLARGINE (*BKC) 100 UNITS/ML 85 UNITS SUB-Q (20:43)
[2023-06-30 21:52] LABS: Glucose Point of Care 270 mg/dl (65-105)
[2023-07-01 00:29] VITALS: BP 126/55; PULSE 93; RESP 20; TEMP 36.6; O2SAT 91
[2023-07-01] MEDS: oxyCODONE HCL (*CRX) 5 MG TAB IR PO (00:32)
[2023-07-01 03:39] VITALS: BP 127/58; PULSE 87; RESP 20; TEMP 36.4; O2SAT 93
[2023-07-01] MEDS: SODIUM CHLORIDE 0.9% IV 1,000 ML 100 ML IV CONT (03:45)
[2023-07-01] MEDS: ceFAZolin 2 GM/D5W 50 ML 2 GM/50 ML BAG IVPB ×2 (05:18→13:29)
[2023-07-01] MEDS: LEVOTHYROXINE SODIUM 75 MCG TABLET PO (05:19)
[2023-07-01] MEDS: LEVOTHYROXINE SODIUM 100 MCG TABLET PO (05:19)
[2023-07-01 05:49] LABS: Glucose Point of Care 180 mg/dl (65-105)
[2023-07-01 05:49] LABS: Glucose Point of Care 281 mg/dl (65-105)
[2023-07-01 08:23] LABS: Glucose Point of Care 166 mg/dl (65-105)
[2023-07-01] MEDS: metFORMIN HCL XR 500 MG TAB.SR.24H 1000 MG PO (08:30)
[2023-07-01] MEDS: GABAPENTIN 300 MG CAPSULE PO (08:30)
[2023-07-01] MEDS: PANTOPRAZOLE 40 MG TABLET PO (08:31)
[2023-07-01] MEDS: POTASSIUM CHLORIDE 10 MEQ ER TABLET 30 MEQ PO (08:31)
[2023-07-01] MEDS: CYANOCOBALAMIN 1,000 MCG TABLET 1000 MCG PO (08:31)
[2023-07-01] MEDS: INSULIN GLARGINE (*BKC) 100 UNITS/ML 45 UNITS SUB-Q (08:32)
[2023-07-01 09:03] VITALS: BP 126/44; PULSE 88; RESP 16; TEMP 36.4; O2SAT 92
[2023-07-01 10:35] VITALS: BP 139/58
[2023-07-01 10:37] VITALS: PULSE 84
[2023-07-01] MEDS: atenoloL 50 MG TABLET PO (10:37)
[2023-07-01] MEDS: hydroCHLOROthiazide 25 MG TABLET PO (10:38)
[2023-07-01] MEDS: oxyCODONE HCL (*CRX) 5 MG TAB IR 10 MG PO (10:45)
--- NOTE | 2023-07-01 11:33 | WPDANESPN ---
Anes - Prog Note Post-Op Date/Time: 07/01/23 11:33 Cardiovascular status: normal Respiratory status: normal Airway patency: baseline Mental status: baseline Post-Op hydration status: normal Vital Signs: Last Vital Signs Temp 36.4 C 07/01/23 09:03 Pulse 84 07/01/23 10:37 Resp 16 07/01/23 09:03 BP 139/58 L 07/01/23 10:35 Pulse Ox 92 07/01/23 09:03 O2 Del Method Room Air 07/01/23 09:10 O2 Flow Rate 8 06/30/23 15:42 Pain Score (VAS): 10 I/O: Intake & Output 06/30/23 07/01/23 07/01/23 23:59 07:59 15:59 Intake Total 470 1390 240 Output Total 600 330 425 Balance -130 1060 -185 06/30/23 06/30/23 06/30/23 11:58 12:01 15:59 PT 13.6 INR 1.0 APTT 26.7 POC Capillary Glucose 216 H 259 H 06/30/23 06/30/23 07/01/23 16:45 20:26 00:25 PT INR APTT POC Capillary Glucose 210 H 270 H 281 H 07/01/23 07/01/23 03:37 08:14 PT INR APTT POC Capillary Glucose 180 H 166 H Post-procedural complaints: none Patient Feedback: Patient satisfied with anesthetic care.
[2023-07-01 12:07] LABS: Glucose Point of Care 260 mg/dl (65-105)
[2023-07-01] MEDS: INSULIN ASPART (*BKC) 100 UNITS/ML SUB-Q (12:16)
[2023-07-01 13:14] VITALS: BP 135/87; PULSE 98; RESP 16; TEMP 36.3; O2SAT 98
--- NOTE | 2023-07-01 13:44 | PC.NURSE ---
On 07/01/23, the student, [Benita Mcqueen], provided care and completed [facility] documentation on this patient. I have reviewed the student's documentation and agree with the findings.
--- NOTE | 2023-07-01 14:05 | WPDNEUROSGPN ---
Progress Note: A&P Assessment and Plan (1) Status post lumbar laminectomy: Code(s): Z98.890 - Other specified postprocedural states Status: Acute Plan Plan: -I removed his drain at bedside -Discharge home today -I reviewed wound care and activity restrictions at bedside -Follow up in clinic in 2 weeks for suture removal Subjective Date/time seen: 07/01/23 14:05 Interval history: He is doing well today without any pain in the buttocks and improved ability to move his right foot. He is having fairly significant back pain, but he thinks the drain is largely contributing to this. He ambulated well with therapy and would like to go home today. Review of Systems Review of Systems: All systems reviewed & are unremarkable except as noted in HPI and below Exam Narrative: AOx4 Full strength in lower extremities Sensation intact to light touch Dressing dry Objective Data Vital Signs Vital Signs: Vital Signs - 24 hr 06/30/23 15:42 06/30/23 15:55 06/30/23 16:10 Temperature 98.1 F Pulse Rate 80 91 90 Respiratory Rate 12 14 20 Blood Pressure 156/68 H 144/70 H 140/72 Pulse Oximetry 99 97 95 Oxygen Delivery Simple Face Mask Room Air Room Air Oxygen Flow Rate 8 06/30/23 16:25 06/30/23 16:40 06/30/23 16:55 Temperature Pulse Rate 88 89 87 Respiratory Rate 18 20 18 Blood Pressure 144/74 H 148/73 H 154/70 H Pulse Oximetry 95 94 95 Oxygen Delivery Room Air Room Air Room Air Oxygen Flow Rate 06/30/23 17:15 06/30/23 17:30 06/30/23 17:47 Temperature 97.6 F 97.2 F L Pulse Rate 91 89 Respiratory Rate 16 16 Blood Pressure 144/63 H 143/70 H Pulse Oximetry 94 100 Oxygen Delivery Room Air Oxygen Flow Rate 06/30/23 18:27 06/30/23 20:22 06/30/23 23:20 Temperature 97.4 F L 97.4 F L Pulse Rate 93 98 77 Respiratory Rate 16 20 Blood Pressure 128/57 L 119/57 L Pulse Oximetry 94 92 96 Oxygen Delivery Autopap Oxygen Flow Rate 07/01/23 00:29 06/30/23 20:34 07/01/23 03:39 Temperature 97.8 F 97.5 F L Pulse Rate 93 87 Respiratory Rate 20 20 Blood Pressure 126/55 L 127/58 L Pulse Oximetry 91 93 Oxygen Delivery Room Air Oxygen Flow Rate 07/01/23 09:03 07/01/23 09:10 07/01/23 10:35 Temperature 97.6 F Pulse Rate 88 Respiratory Rate 16 Blood Pressure 126/44 L 139/58 L Pulse Oximetry 92 Oxygen Delivery Room Air Oxygen Flow Rate 07/01/23 10:37 07/01/23 13:14 Temperature 97.3 F L Pulse Rate 84 98 Respiratory Rate 16 Blood Pressure 135/87 Pulse Oximetry 98 Oxygen Delivery Oxygen Flow Rate Intake/Output Intake/Output: Intake & Output 06/28/23 06/29/23 06/30/23 07/01/23 23:59 23:59 23:59 23:59 Intake Total 520 1870 Output Total 600 755 Balance -80 1115 Meds/Results Medications: Active Medications Generic Name Dose Route Start Last Admin Trade Name Freq PRN Reason Stop Dose Admin Acetaminophen 1,000 mg 06/30/23 15:45 Acetaminophen 500 Mg Tablet PO Q6H PRN Mild Pain (1-3) Al Hydrox/Mg Hydrox/Simethicone 20 ml 06/30/23 15:45 Mag Hydrox/Al Hydrox/Simeth 30 Ml Udc PO Q4H PRN Indigestion/Heartburn Atenolol 50 mg 07/01/23 09:00 07/01/23 10:37 Atenolol 50 Mg Tablet PO 50 mg QAM [facility] Administration Bisacodyl 10 mg 06/30/23 15:45 Bisacodyl 10 Mg Suppository RECTAL DAILY PRN Constipation Cyanocobalamin 1,000 mcg 07/01/23 09:00 07/01/23 08:31 Cyanocobalamin 1,000 Mcg Tablet PO 1,000 mcg QAM [facility] Administration Cyclobenzaprine HCl 10 mg 06/30/23 15:45 Cyclobenzaprine Hcl 10 Mg Tablet PO TID PRN Muscle Spasms Dextrose 12.5 gm 06/30/23 15:48 Dextrose 50% 25 Gm/50 Ml Syringe IV PUSH PRN PRN Hypoglycemia Protocol Docusate Sodium 100 mg 06/30/23 21:00 07/01/23 08:45 Docusate Sodium 100 Mg Capsule PO Not Given Q12HR [facility] Gabapentin 300 mg 06/30/23 17:00 07/01/23 08:30 Gabapentin 300 Mg Caps
== END 2023-07-01 15:21 | disposition home or self-care (01) ==
LOC: ANHSURGERY 11:20 → ANH2MED 17:00
PROVIDERS: PCP Family Medicine; Visit Provider Neurological Surgery
PROC: (CPT 63005; principal; 2023-06-30 13:30)
DX: M48.062 Spinal stenosis, lumbar region with neurogenic claudication (principal); M21.371 Foot drop, right foot; I10 Essential (primary) hypertension; K21.9 Gastro-esophageal reflux disease without esophagitis; E78.5 Hyperlipidemia, unspecified; E03.9 Hypothyroidism, unspecified; G47.33 Obstructive sleep apnea (adult) (pediatric); E11.9 Type 2 diabetes mellitus without complications; Z86.73 Personal history of transient ischemic attack (TIA), and cerebral infarction without residual deficits; Z86.718 Personal history of other venous thrombosis and embolism; Z79.84 Long term (current) use of oral hypoglycemic drugs; Z79.4 Long term (current) use of insulin; Z79.01 Long term (current) use of anticoagulants; Z79.85 Long-term (current) use of injectable non-insulin antidiabetic drugs; Z87.891 Personal history of nicotine dependence
CPT/HCPCS: 63047; 63048; 36415; 82948; 85610; 85730; 97161; 97165; 99199; A9270; J0330; J0690; J1100; J1170; J1815; J2405; J2704; J3010; J7030; J7120

== ENCOUNTER 2023-07-08 15:22 | Inpatient (IN) | payer MEDICARE, SELFPAY ==
[2023-07-08] VITALS (12 sets, daily range): BP systolic 141–159; BP diastolic 65–87; PULSE 88–107; RESP 16–36; TEMP 36.2; O2SAT 94–100; BMI 30.4
--- NOTE | ~2023-07-08 | CT_ITS ---
EXAMINATION: CTA chest PE protocol DATE: 07/09/2023 12:56 INDICATION: Dyspnea. Extensive deep venous thrombosis. TECHNIQUE: Computed tomography (CT) pulmonary angiogram of the chest was performed with 100 mL Omnipa que-350 intravenous contrast. Additional 3D reconstructions utilizing coronal maximum intensity proje ction (MIP) were performed. The dose-length product was 492.32 mGy-cm. COMPARISON: None FINDINGS: There is a central filling defects within the right upper lobar pulmonary artery extending to the pos terior segmental and subsegmental pulmonary arteries consistent with acute pulmonary embolism. There is an additional central likely acute pulmonary embolism in the posterior segmental pulmonary artery of the left upper lobe which has anatomic variant appears to arise off of the inferior lingular pulmo nary artery. Mild dependent atelectasis in the bilateral lower lobes. No pneumonia, pulmonary infarct , pulmonary edema or pleural effusion. Heart size is normal. Small amount of atherosclerotic coronary artery calcific location. No pericardial effusion. 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 No dissection. No pathologically enl arged thoracic lymphadenopathy. There are couple calcified gallstones in the dependent aspect of the normal-appearing gallbladder. Moderate thoracic spondylosis with bridging osteophytes at multiple lev els consistent with diffuse idiopathic skeletal hyperostosis (DISH). IMPRESSION: 1. Pulmonary embolism with relatively low clot burden in the bilateral upper lobes. 2. 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 Reviewed, dictated and finalized at location A. SEWER IMPRESSION: 1. Pulmonary embolism with relatively low clot burden in the bilateral upper lo bes. 2. 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
--- NOTE | ~2023-07-08 | US_ITS ---
EXAMINATION: US venous doppler LE RT DATE: 07/08/2023 16:31 INDICATION: Right lower limb swelling TECHNIQUE: Cage scale images without and with compression and Doppler images of the right lower extre mity veins were obtained. COMPARISON: None FINDINGS: The right common femoral vein, profunda femoral vein, femoral vein, popliteal vein, peronea l trunk, posterior tibial veins, and greater saphenous vein are thrombosed. IMPRESSION: 1. Extensive deep venous thrombosis of the right lower extremity. These findings were discussed with Dr. Randy Mireles MD in the Emergency Department at 1634 hour s on 07/08/2023. Reviewed, dictated and finalized at location L. K FITTER IMPRESSION: 1. Extensive deep venous thrombosis of the right lower extremity. These findings were discussed with Dr. Ranyd Mireles MD in the Emergency D epartment at 1634 hours on 07/08/2023.
[2023-07-08 16:06] LABS: Basophils Absolute Auto 0.1 K/mm3 (0.0-0.1); Basophils Percent Auto 0.8 % (0.2-1.2); Eosinophils Absolute Auto 0.3 K/mm3 (0-0.3); Eosinophils Percent Auto 4.2 % (0-4.4); Hematocrit 47.9 % (42.0-52.0); Hemoglobin 15.9 g/dL (14.0-18.0); Immature Granulocyte Percent A 1.3 % (0-0.5); Lymphocytes Absolute Auto 1.11 K/mm3 (0.9-3.2); Mean Corpuscular HGB Conc 33.2 g/dl (32-36); Mean Corpuscular Hemoglobin 32.5 pg (26-34); Mean Platelet Volume 10.8 fl (7.4-10.4); Monocytes Absolute Auto 0.7 K/mm3 (0.1-0.6); Monocytes Percent Auto 8.8 % (2.6-8.5); Neutrophils Absolute Auto 5.6 K/mm3 (1.3-6.7); Neutrophils Percent Auto 70.9 % (45.5-73.1); Platelet Count Result 240 k/mm3 (150-375); Red Blood Count 4.89 M/mm3 (4.6-6.20); Red Cell Distribution Width 12.6 % (11.5-14.5); White Blood Count 7.9 K/mm3 (4.5-10.0)
[2023-07-08 16:16] LABS: Alanine Aminotransferase 35 U/L (6-50); Albumin Level 4.3 g/dL (3.5-5.1); Alkaline Phosphatase 94 U/L (38-126); Anion Gap 10 mmol/L (8-16); Aspartate Amino Transferase 25 U/L (17-59); Blood Urea Nitrogen 13 mg/dL (9-20); Calcium 10.6 mg/dL (8.4-10.2); Carbon Dioxide 29 mmol/L (22-30); Chloride 93 mmol/L (98-107); Estimated CRCL calculation 59 ml/min; Estimated Glomerular Filt Rate > 60; Glucose 374 mg/dL (65-110); Potassium 4.1 mmol/L (3.4-5.0); Sodium 132 mmol/L (137-145)
[2023-07-08 16:30] LABS: Partial Thromboplastin Time 30.3 SECONDS (22.3-36.8)
--- NOTE | 2023-07-08 16:46 | ED.EXTPRO ---
HPI - Extremity Problem General Chief complaint: Extremity Problem,Nontraumatic Stated complaint: swelling right leg post op Time Seen by Provider: 07/08/23 16:43 Source: patient and family Related Data Home Medications Medication Instructions Recorded Confirmed levothyroxine 175 mcg tablet 175 mcg PO QAM 05/28/19 07/08/23 metformin 500 mg tablet,extended 1,000 mg PO BID 05/28/19 07/08/23 release 24hr (osmotic) insulin lispro 100 unit/mL See Rx Instructions .Route .COMPLEX 05/29/19 07/08/23 subcutaneous pen (Humalog KwikPen (U-100) Insulin) mecobalamin (vitamin B12) 1,000 1,000 mcg sublingual QAM 09/16/20 07/08/23 mcg disintegrating tablet,sublingual hphlzxlx-ogdt-mcwje acid 400 1 tablet PO DAILY 02/13/22 07/08/23 mcg-lycopene 600 mcg-ginkgo 120 mg tablet omeprazole 20 mg capsule,delayed 20 mg PO DAILY 06/08/22 07/08/23 release semaglutide 1 mg/dose (4 mg/3 mL) 1.5 mg subcut WEEKLY 04/12/23 07/08/23 subcutaneous pen injector vibegron 75 mg tablet (Gemtesa) See Rx Instructions .Route .COMPLEX 04/21/23 07/08/23 fluorouracil 5 % topical solution 1 applic topical BID 06/16/23 07/08/23 insulin glargine 100 unit/mL (3 45 unit subcut DAILY 06/16/23 07/08/23 mL) subcutaneous pen (Lantus Solostar U-100 Insulin) insulin glargine 100 unit/mL (3 85 unit subcut HS 06/16/23 07/08/23 mL) subcutaneous pen (Lantus Solostar U-100 Insulin) mirabegron 50 mg tablet,extended 50 mg PO HS 06/16/23 07/08/23 release 24 hr (Myrbetriq) Allergies Allergy/AdvReac Type Severity Reaction Status Date / Time No Known Allergies Allergy Verified 06/30/23 11:35 [facility] Past Medical History Medical History (Updated 07/08/23 @ 23:01 by Anjali Diop MD) Bladder cancer Colon cancer screening Dysphagia Essential hypertension Fever Gastroesophageal reflux disease without esophagitis Hematuria History of CVA (cerebrovascular accident) History of DVT (deep vein thrombosis) Long-term anticoagulation History of DVT in adulthood History of esophageal dilatation Hyperlipidemia Hypothyroidism Insulin dependent diabetes mellitus Left carotid artery occlusion Nephrolithiasis Obstructive sleep apnea Pneumonia due to 2019 novel coronavirus Type 2 diabetes mellitus without complication, without long-term current use of insulin Surgical History Surgical History (Updated 07/01/23 @ 14:06 by Emeli Allison MD) H/O lithotripsy History of biopsy of bladder History of cataract extraction History of knee replacement Partial right knee replacement Status post hip replacement Left side Status post placement of ureteral stent Right side Family History Family History Father Cancer Mother Cancer Grandparent Diabetes mellitus Social History Social History Social History: The patient lives with his sleeve in girlfriend. The patient quit smoking 40+ years ago. The patient has 2 children. His son is the durable power litigation attorney associate for healthcare. The patient is retired from [employer]. 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 Patient occasionally has a beer on the weekend. Maybe 3 or 4 beers a week. Patient denies any marijuana or illicit drugs. Smoking packs per day: 1.5 Smoking cigarettes per day: 30.0 Years smoked: 10 Smoking pack-years: 15.00 Smoking status: Former smoker Second hand tobacco smoke exposure: No Alcohol intake: current Drinks per week: 2 Alcohol use details: BEERS Substance use: never Substance use type: does not use Do You Feel Safe in your Home?: Yes Lack of Transportation: No Lack of Food: Never True Current Housing: I Have Housing Concerned About Future Housing: No Difficulty Paying Gas/Electric Bills: No Difficulty Paying for Meds: No Currently Unemployed: No Education: Associate Degree Diffic
[2023-07-08] MEDS: HEPARIN SOD/D5W 100 UNITS/ML 25,000 UNITS/250 ML BAG 15 UNITS IV CONT (17:42)
[2023-07-08 17:51] LABS: Basophils Absolute Auto 0.1 K/mm3 (0.0-0.1); Basophils Percent Auto 0.6 % (0.2-1.2); Eosinophils Absolute Auto 0.3 K/mm3 (0-0.3); Eosinophils Percent Auto 2.9 % (0-4.4); Hematocrit 47.8 % (42.0-52.0); Hemoglobin 15.7 g/dL (14.0-18.0); Immature Granulocyte Absolute 0.09 K/mm3 (0.00-0.031); Lymphocytes Absolute Auto 1.01 K/mm3 (0.9-3.2); Lymphocytes Percent Auto 10.7 % (18.3-44.2); Mean Corpuscular HGB Conc 32.8 g/dl (32-36); Mean Corpuscular Hemoglobin 32.5 pg (26-34); Mean Platelet Volume 11.3 fl (7.4-10.4); Monocytes Absolute Auto 0.7 K/mm3 (0.1-0.6); Monocytes Percent Auto 7.7 % (2.6-8.5); Neutrophils Absolute Auto 7.3 K/mm3 (1.3-6.7); Neutrophils Percent Auto 77.1 % (45.5-73.1); Platelet Count Result 221 k/mm3 (150-375); Red Blood Count 4.83 M/mm3 (4.6-6.20); Red Cell Distribution Width 12.5 % (11.5-14.5); White Blood Count 9.4 K/mm3 (4.5-10.0)
--- NOTE | 2023-07-08 20:53 | PM.IMHP ---
H&P: HPI History of Present Illness Date/Time: 07/08/23 20:53 Chief Complaint: LEG SWELLING Narrative: THIS IS A 73-YEAR-OLD MALE WITH PAST MEDICAL HISTORY SIGNIFICANT FOR TYPE 2 DIABETES MELLITUS, HYPERTENSION, GERD, OBSTRUCTIVE SLEEP APNEA, SPINAL STENOSIS, STATUS POST LAMINECTOMY A WEEK AGO PATIENT PRESENTS TO THE EMERGENCY ROOM WITH RIGHT LOWER EXTREMITY SWELLING VENOUS DOPPLER WAS SIGNIFICANT FOR EXTENSIVE DEEP VEIN THROMBOSIS EXAMINATION: US venous doppler LE RT DATE: 07/08/2023 16:31 INDICATION: Right lower limb swelling TECHNIQUE: Cage scale images without and with compression and Doppler images of the right lower extremity veins were obtained. COMPARISON: None FINDINGS: The right common femoral vein, profunda femoral vein, femoral vein, popliteal vein, peroneal trunk, posterior tibial veins, and greater saphenous vein are thrombosed. IMPRESSION: 1. Extensive deep venous thrombosis of the right lower extremity. Review of Systems Review of Systems: STATUS POST LUMBAR LAMINECTOMY, RIGHT LOWER EXTREMITY SWELLING PMFSH Past Medical History Medical History (Updated 07/08/23 @ 23:01 by Anjali Diop MD) Bladder cancer Colon cancer screening Dysphagia Essential hypertension Fever Gastroesophageal reflux disease without esophagitis Hematuria History of CVA (cerebrovascular accident) History of DVT (deep vein thrombosis) Long-term anticoagulation History of DVT in adulthood History of esophageal dilatation Hyperlipidemia Hypothyroidism Insulin dependent diabetes mellitus Left carotid artery occlusion Nephrolithiasis Obstructive sleep apnea Pneumonia due to 2019 novel coronavirus Type 2 diabetes mellitus without complication, without long-term current use of insulin Surgical History Surgical History (Updated 07/01/23 @ 14:06 by Emeli Allison MD) H/O lithotripsy History of biopsy of bladder History of cataract extraction History of knee replacement Partial right knee replacement Status post hip replacement Left side Status post placement of ureteral stent Right side Family History Family History Father Cancer Mother Cancer Grandparent Diabetes mellitus Social History Social History Social History: The patient lives with his sleeve in girlfriend. The patient quit smoking 40+ years ago. The patient has 2 children. His son is the durable power brand sales consultant for healthcare. The patient is retired from [employer]. 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 Patient occasionally has a beer on the weekend. Maybe 3 or 4 beers a week. Patient denies any marijuana or illicit drugs. Smoking packs per day: 1.5 Smoking cigarettes per day: 30.0 Years smoked: 10 Smoking pack-years: 15.00 Smoking status: Former smoker Second hand tobacco smoke exposure: No Alcohol intake: current Drinks per week: 2 Alcohol use details: BEERS Substance use: never Substance use type: does not use Do You Feel Safe in your Home?: Yes Lack of Transportation: No Lack of Food: Never True Current Housing: I Have Housing Concerned About Future Housing: No Difficulty Paying Gas/Electric Bills: No Difficulty Paying for Meds: No Currently Unemployed: No Education: Associate Degree Difficulty w/ Childcare or Family Care: No Living arrangements: alone Occupation/Education: retired Additional occupation/education comments: [employer]. Gender identity (if verbalized by the patient): Male Sexual Orientation (if Verbalized by the Patient): Straight or Heterosexual Spiritual care concerns: No Meds Home Medications and Allergies Home Medications Medication Instructions Recorded Confirmed Type levothyroxine 175 mcg tablet 175 mcg PO QAM 05/28/19 07/08/23 History metformin 500 mg tablet,extended 1,0
[2023-07-08 22:20] LABS: Glucose Point of Care 343 mg/dl (65-105)
--- NOTE | 2023-07-08 22:32 | PC.NURSE ---
called MD Fragoso about patient elevated bs 343
[2023-07-09] VITALS (7 sets, daily range): BP systolic 131–158; BP diastolic 66–75; PULSE 68–97; RESP 18; TEMP 36.5–36.8; O2SAT 96–97
--- NOTE | 2023-07-09 | ECHO_ITS ---
Patient Info Name: Roscoe Pérez Age: 73 years : 1950 Gender: Male Ht: 72 in Wt: 206 lbs BSA: 2.20 m2 HR: 97 bpm BP: 158 / 74 mmHg Heart Rhythm: Sinus Rhythm Technical Quality: Good Exam Date: 07/09/2023 2:16 PM Exam Location: Echo Lab Patient Status: Inpatient Admit Date: 07/09/2023 Staff Ordering Physician: Nicolle Ulloa Wardrobe Attendant: Coral Cherry RDCS Attending Provider: Nicolle Ulloa Referring Physician: Artemio LEDESMA; Exam Type: CA echo dop color flow w con Study Info Indications - extensive DVT Complete two-dimensional, color flow and Doppler transthoracic echocardiogram is performed with contrast to opacify the left ventricle and to improve the deliniation of the left ventricle endocardial borders. Summary 1. Definity contrast administered improved wall motion interpretation. 2. Left ventricular chamber dimension is normal. 3. Left ventricular systolic function is normal, estimated at 60-65%. 4. The left ventricular diastolic function is grade I diastolic dysfunction. 5. E/e' 13 is mildly elevated. 6. There is mild aortic valve sclerosis. 7. There is trace aortic valve regurgitation. 8. No pulmonary hypertension, estimated pulmonary arterial systolic pressure is 20 mmHg. Left Ventricle E/e' 13 is mildly elevated. Definity contrast administered improved wall motion interpretation. Left ventricular chamber dimension is normal. Left ventricular systolic function is normal, estimated at 60-65%. The left ventricular diastolic function is grade I diastolic dysfunction. Right Ventricle Right ventricular systolic function is normal and with normal TAPSE 1.8 cm. Right ventricular chamber dimension is normal. Left Atria Left atrial chamber dimension is normal. Right Atria Right atrial chamber dimension is normal. Aortic Valve The aortic valve is trileaflet. There is mild aortic valve sclerosis. There is no aortic valve stenosis. There is trace aortic valve regurgitation. Pulmonic Valve There is no pulmonic regurgitation. Mitral Valve There is no mitral valve stenosis. There is no mitral valve regurgitation. Tricuspid Valve There is no tricuspid valve regurgitation. No pulmonary hypertension, estimated pulmonary arterial systolic pressure is 20 mmHg. Pericardium/Pleural There is no pericardial effusion. Inferior Vena Cava Normal inferior vena cava with >50% collapse upon inspiration consistent with normal right atrial pressure, 5 mmHg. Aorta The aortic root size at the sinus of Valsalva is normal. Left Ventricular Outflow Tract Name Value Normal LVOT 2D LVOT Diameter 2.30 cm LVOT Doppler LVOT Peak Gradient 3 mmHg LVOT Mean Gradient 2 mmHg LVOT VTI 20.48 cm LVOT VTI/AV VTI Ratio 0.90 LVOT Stroke Volume 85.04 ml LVOT CO 6.01 l/min LVOT CI 2.74 L/min/m2 Pulmonic Valve Name Value Normal
[2023-07-09 00:18] LABS: Partial Thromboplastin Time 51.9 SECONDS (22.3-36.8)
[2023-07-09] MEDS: INSULIN ASPART (*BKC) 100 UNITS/ML SUB-Q ×5 (00:24→21:21)
--- NOTE | 2023-07-09 00:25 | PC.NURSE ---
got a hold of MD Paiz 4 units NovoLog once ordered for patient elevated BS, MD Paiz informed medication rec completed. Awaiting MD Paiz to restart home medication.
[2023-07-09] MEDS: HEPARIN SODIUM 5,000 UNITS/ML VIAL 7000 UNITS IV PUSH (00:39)
--- NOTE | 2023-07-09 00:43 | PC.NURSE ---
PTT 51 < 55 bolus with heparin 7000 unit and increase 3 ml/hr on heparin drip next PTT 0643
[2023-07-09] MEDS: LEVOTHYROXINE SODIUM 75 MCG TABLET PO (05:54)
[2023-07-09] MEDS: LEVOTHYROXINE SODIUM 100 MCG TABLET PO (05:54)
[2023-07-09 07:07] LABS: Basophils Absolute Auto 0.1 K/mm3 (0.0-0.1); Basophils Percent Auto 1.2 % (0.2-1.2); Eosinophils Absolute Auto 0.4 K/mm3 (0-0.3); Eosinophils Percent Auto 6.3 % (0-4.4); Hematocrit 45.1 % (42.0-52.0); Hemoglobin 14.8 g/dL (14.0-18.0); Immature Granulocyte Absolute 0.08 K/mm3 (0.00-0.031); Immature Granulocyte Percent A 1.3 % (0-0.5); Lymphocytes Absolute Auto 1.38 K/mm3 (0.9-3.2); Mean Corpuscular HGB Conc 32.8 g/dl (32-36); Mean Corpuscular Hemoglobin 32.2 pg (26-34); Mean Platelet Volume 10.8 fl (7.4-10.4); Monocytes Absolute Auto 0.6 K/mm3 (0.1-0.6); Monocytes Percent Auto 9.5 % (2.6-8.5); Neutrophils Absolute Auto 3.5 K/mm3 (1.3-6.7); Neutrophils Percent Auto 58.7 % (45.5-73.1); Platelet Count Result 225 k/mm3 (150-375); Red Cell Distribution Width 12.6 % (11.5-14.5)
[2023-07-09 07:15] LABS: Partial Thromboplastin Time 132.4 SECONDS (22.3-36.8)
[2023-07-09] MEDS: HEPARIN SOD/D5W 100 UNITS/ML 25,000 UNITS/250 ML BAG 16 UNITS IV CONT (07:36)
[2023-07-09 07:38] LABS: Glucose Point of Care 304 mg/dl (65-105)
[2023-07-09] MEDS: GABAPENTIN 300 MG CAPSULE PO ×2 (07:56→17:18)
[2023-07-09] MEDS: PANTOPRAZOLE 40 MG TABLET PO (07:56)
[2023-07-09] MEDS: atenoloL 50 MG TABLET PO (07:56)
[2023-07-09] MEDS: CYANOCOBALAMIN 1,000 MCG TABLET 1000 MCG PO (07:56)
[2023-07-09] MEDS: CELECOXIB 200 MG CAPSULE PO ×2 (07:56→17:18)
[2023-07-09] MEDS: hydroCHLOROthiazide 25 MG TABLET PO (07:56)
[2023-07-09] MEDS: SENNA/DOCUSATE SODIUM TABLET 1 TAB PO ×2 (07:56→17:18)
[2023-07-09] MEDS: INSULIN GLARGINE (*BKC) 100 UNITS/ML 45 UNITS SUB-Q (07:59)
--- NOTE | 2023-07-09 12:06 | PM.IMPN ---
Progress Note: A&P Assessment and Plan (1) Acute deep vein thrombosis (DVT) of right lower extremity: Code(s): I82.401 - Acute embolism and thrombosis of unspecified deep veins of right lower extremity Status: Acute Assessment and Plan: Continue Heparin drip for now with protocol. All Deep veins in the RLE are involved. Initial Dose Eliquis Obtain CTA PE protocol to assess for further clot burden. Bleeding precautions Obtain ECHO to evaluate for clot burden. Stop Warfarin. (2) Status post lumbar laminectomy: Code(s): Z98.890 - Other specified postprocedural states Status: Acute Assessment and Plan: Lumbar Laminectomy by Dr. Allison on 06/30/23. Keep upcoming appointment in one week for suture removal PRN Pain control Fall Precautions (3) Insulin dependent diabetes mellitus: Status: Chronic Assessment and Plan: Glucose checks AC and HS SSI meals and at HS, moderate protocol Hypoglycemia protocol Continue Lantus Heart Healthy diet Hold oral hypoglycemics and switch to SSI Correction to obtain tighter glucose control to allow better healing of surgical wound. (4) CAD (coronary artery disease): Code(s): I25.10 - Atherosclerotic heart disease of [place] coronary artery without angina pectoris Status: Chronic Assessment and Plan: Monitor pt's VS and trend labs. Heart healthy diet Continue home medication. (5) Lumbar stenosis with neurogenic claudication: Code(s): M48.062 - Spinal stenosis, lumbar region with neurogenic claudication Status: Chronic Assessment and Plan: Status post Lumbar Laminectomy as noted above. See Plan for #2 (6) Lumbar post-laminectomy syndrome: Code(s): M96.1 - Postlaminectomy syndrome, not elsewhere classified Status: Chronic Assessment and Plan: See #2 (7) Obstructive sleep apnea: Code(s): G47.33 - Obstructive sleep apnea (adult) (pediatric) Status: Chronic Assessment and Plan: CPAP while inpt. May use from home. (8) Gait abnormality: Code(s): R26.9 - Unspecified abnormalities of gait and mobility Status: Acute Assessment and Plan: Fall precautions Defer PT and OT at this time while on Heparin drip. (9) Constipation: Code(s): K59.00 - Constipation, unspecified Status: Acute Assessment and Plan: No BM in 9 days. One time dose of Lactulose ordered. Daily Miralax ordered. Time Spent With Patient Time with patient: 25 - 35 minutes Subjective Date/time seen: 07/09/23 0930 Interval history: This very pleasant male pt was examined at the bedside in interval assessment this morning after being admitted to the hospital overnight with acute DVT of the RLE. Pt is status post Laminectomy on 06/30/[address] Allison. He has a history of multiple DVT's in the past and has been on Coumadin chronically for 30+ years. He states that he held it for one week prior to surgery and then started it two days after surgery. Since being home, he has had the onset of pain in the medial aspect of the right leg and his entire leg from ankle to upper thigh is edematous, markedly over the left prompting him to come to the ER where their workup showed an extensive deep venous thrombosis of the RLE in all of the deep veins including common femoral, profunda femoral, femoral, popliteal, peroneal trunk, posterior tibial, and greater saphenous. The ED physician discussed with Vascular surgeon at [facility], Dr. Staton, and he advised no procedure was needed and to begin anticoagulation. Pt is currently without any complaints of dyspnea, but has had some occasional twinges of pain in his chest that he has been talking to his PCP about and this precedes the swelling and symptoms of this current hospitalization. Pt was started on Heparin drip and admitted to the hospital. No other acute complaints today. Review of Systems Review of Systems:
--- NOTE | 2023-07-09 12:06 | P.PNIM_ITS ---
Progress Note: A&P Assessment and Plan (1) Acute deep vein thrombosis (DVT) of right lower extremity: Code(s): I82.401 - Acute embolism and thrombosis of unspecified deep veins of right lower extremity Status: Acute Assessment and Plan: * Continue Heparin drip for now with protocol. * All Deep veins in the RLE are involved. * Initial Dose Eliquis * Obtain CTA PE protocol to assess for further clot burden. * Bleeding precautions * Obtain ECHO to evaluate for clot burden. * Stop Warfarin. (2) Status post lumbar laminectomy: Code(s): Z98.890 - Other specified postprocedural states Status: Acute Assessment and Plan: * Lumbar Laminectomy by Dr. Allison on 06/30/23. * Keep upcoming appointment in one week for suture removal * PRN Pain control * Fall Precautions (3) Insulin dependent diabetes mellitus: Status: Chronic Assessment and Plan: * Glucose checks AC and HS * SSI meals and at HS, moderate protocol * Hypoglycemia protocol * Continue Lantus * Heart Healthy diet * Hold oral hypoglycemics and switch to SSI Correction to obtain tighter glucose control to allow better healing of surgical wound. (4) CAD (coronary artery disease): Code(s): I25.10 - Atherosclerotic heart disease of [place] coronary artery without angina pectoris Status: Chronic Assessment and Plan: * Monitor pt's VS and trend labs. * Heart healthy diet * Continue home medication. (5) Lumbar stenosis with neurogenic claudication: Code(s): M48.062 - Spinal stenosis, lumbar region with neurogenic claudication Status: Chronic Assessment and Plan: * Status post Lumbar Laminectomy as noted above. * See Plan for #2 (6) Lumbar post-laminectomy syndrome: Code(s): M96.1 - Postlaminectomy syndrome, not elsewhere classified Status: Chronic Assessment and Plan: * See #2 (7) Obstructive sleep apnea: Code(s): G47.33 - Obstructive sleep apnea (adult) (pediatric) Status: Chronic Assessment and Plan: * CPAP while inpt. May use from home. (8) Gait abnormality: Code(s): R26.9 - Unspecified abnormalities of gait and mobility Status: Acute Assessment and Plan: * Fall precautions * Defer PT and OT at this time while on Heparin drip. (9) Constipation: Code(s): K59.00 - Constipation, unspecified Status: Acute Assessment and Plan: * No BM in 9 days. * One time dose of Lactulose ordered. * Daily Miralax ordered. Time Spent With Patient Time with patient: 25 - 35 minutes Subjective Date/time seen: 07/09/23 0930 Interval history: This very pleasant male pt was examined at the bedside in interval assessment this morning after being admitted to the hospital overnight with acute DVT of the RLE. Pt is status post Laminectomy on 06/30/[address] Allison. He has a history of multiple DVT's in the past and has been on Coumadin chronically for 30+ years. He states that he held it for one week prior to surgery and then started it two days after surgery. Since being home, he has had the onset of pain in the medial aspect of the right leg and his entire leg from ankle to upper thigh is edematous, markedly over the left prompting him to come to the ER where their workup showed an extensive deep venous thrombosis of the RLE in all of the deep veins including common femoral, profunda femoral, femoral, popliteal, peroneal trunk, posterior tibial, and greater saphenous. The ED physician discussed with Vascular surgeon at [facility], Dr. Staton, and he advised no proce
[2023-07-09] MEDS: LACTULOSE 20 GM/30 ML UDC PO (12:08)
[2023-07-09 12:09] LABS: Glucose Point of Care 335 mg/dl (65-105)
[2023-07-09 13:42] LABS: Partial Thromboplastin Time 64.2 SECONDS (22.3-36.8)
[2023-07-09] MEDS: HEPARIN SODIUM 5,000 UNITS/ML VIAL 3500 UNITS IV PUSH (14:06)
[2023-07-09] MEDS: PERFLUTREN LIPID MICROSPHERES 1.5 ML VIAL DILUTED TO 10 ML TOTAL VOLUME IV PUSH (14:25)
--- NOTE | 2023-07-09 15:27 | IVDEFINITY ---
Prior to administration of IV Definity the patient was educated on the risks and benefits of the imaging enhancing agent including potential adverse side effects. The patient verbalized understanding. Allergies were verified. No exclusion criteria were identified and at least one of the following inclusion criteria were met: 1) physician request, 2) patient technically difficult to image (per the [place] [employer]ocardi[employer] guidelines of two or more segments not discernable within the apical view), or 3) questionable left ventricular function. ?
[2023-07-09 16:24] LABS: Glucose Point of Care 302 mg/dl (65-105)
[2023-07-09 20:32] LABS: Partial Thromboplastin Time 153.7 SECONDS (22.3-36.8)
[2023-07-09 21:05] LABS: Glucose Point of Care 315 mg/dl (65-105)
[2023-07-09] MEDS: APIXABAN 5 MG TABLET 10 MG PO (21:15)
[2023-07-09] MEDS: MIRABEGRON 50 MG ER TABLET PO (21:15)
[2023-07-09] MEDS: ROSUVASTATIN 10 MG TABLET PO (21:15)
[2023-07-09] MEDS: INSULIN GLARGINE (*BKC) 100 UNITS/ML 85 UNITS SUB-Q (21:16)
[2023-07-09] MEDS: HEPARIN SOD/D5W 100 UNITS/ML 25,000 UNITS/250 ML BAG 15 UNITS IV CONT ×2 (22:48→22:51)
[2023-07-10] VITALS (7 sets, daily range): BP systolic 129–151; BP diastolic 68–72; PULSE 63–87; RESP 16–18; TEMP 36.5–36.8; O2SAT 93–98
[2023-07-10 04:01] LABS: Basophils Absolute Auto 0.1 K/mm3 (0.0-0.1); Basophils Percent Auto 1.2 % (0.2-1.2); Eosinophils Absolute Auto 0.5 K/mm3 (0-0.3); Eosinophils Percent Auto 9.2 % (0-4.4); Hematocrit 42.9 % (42.0-52.0); Hemoglobin 14.3 g/dL (14.0-18.0); Immature Granulocyte Absolute 0.07 K/mm3 (0.00-0.031); Immature Granulocyte Percent A 1.3 % (0-0.5); Lymphocytes Absolute Auto 1.57 K/mm3 (0.9-3.2); Lymphocytes Percent Auto 30.1 % (18.3-44.2); Mean Corpuscular HGB Conc 33.3 g/dl (32-36); Mean Corpuscular Hemoglobin 32.4 pg (26-34); Mean Corpuscular Volume 97.1 fl (80-100); Mean Platelet Volume 10.6 fl (7.4-10.4); Monocytes Absolute Auto 0.5 K/mm3 (0.1-0.6); Neutrophils Absolute Auto 2.5 K/mm3 (1.3-6.7); Neutrophils Percent Auto 48.2 % (45.5-73.1); Platelet Count Result 242 k/mm3 (150-375); Red Blood Count 4.42 M/mm3 (4.6-6.20); Red Cell Distribution Width 12.6 % (11.5-14.5); White Blood Count 5.2 K/mm3 (4.5-10.0)
[2023-07-10 04:13] LABS: Alanine Aminotransferase 29 U/L (6-50); Albumin Level 3.7 g/dL (3.5-5.1); Alkaline Phosphatase 74 U/L (38-126); Anion Gap 5 mmol/L (8-16); Aspartate Amino Transferase 29 U/L (17-59); Bilirubin,Total 0.5 mg/dL (0.2-1.3); Blood Urea Nitrogen 14 mg/dL (9-20); Calcium 10.2 mg/dL (8.4-10.2); Carbon Dioxide 29 mmol/L (22-30); Chloride 99 mmol/L (98-107); Estimated CRCL calculation 80 ml/min; Estimated Glomerular Filt Rate > 60; Glucose 232 mg/dL (65-110); Magnesium 2.1 mg/dL (1.6-2.3); Potassium 3.3 mmol/L (3.4-5.0); Sodium 133 mmol/L (137-145)
[2023-07-10 04:18] LABS: Partial Thromboplastin Time 125.7 SECONDS (22.3-36.8)
[2023-07-10] MEDS: HEPARIN SOD/D5W 100 UNITS/ML 25,000 UNITS/250 ML BAG 13 UNITS IV CONT (04:31)
[2023-07-10] MEDS: LEVOTHYROXINE SODIUM 75 MCG TABLET PO (05:49)
[2023-07-10] MEDS: LEVOTHYROXINE SODIUM 100 MCG TABLET PO (05:49)
[2023-07-10 07:47] LABS: Glucose Point of Care 203 mg/dl (65-105)
[2023-07-10] MEDS: CYANOCOBALAMIN 1,000 MCG TABLET 1000 MCG PO (09:49)
[2023-07-10] MEDS: APIXABAN 5 MG TABLET 10 MG PO (09:49)
[2023-07-10] MEDS: SENNA/DOCUSATE SODIUM TABLET 1 TAB PO (09:49)
[2023-07-10] MEDS: PANTOPRAZOLE 40 MG TABLET PO (09:49)
[2023-07-10] MEDS: CELECOXIB 200 MG CAPSULE PO (09:49)
[2023-07-10] MEDS: GABAPENTIN 300 MG CAPSULE PO (09:49)
[2023-07-10] MEDS: atenoloL 50 MG TABLET PO (09:50)
[2023-07-10] MEDS: hydroCHLOROthiazide 25 MG TABLET PO (09:51)
[2023-07-10] MEDS: INSULIN GLARGINE (*BKC) 100 UNITS/ML 45 UNITS SUB-Q (09:51)
[2023-07-10 11:42] LABS: Glucose Point of Care 351 mg/dl (65-105)
[2023-07-10] MEDS: INSULIN ASPART (*BKC) 100 UNITS/ML SUB-Q (12:59)
--- NOTE | 2023-07-10 13:08 | P.DS_ITS ---
DS: Admitting Diagnosis Discharge Date 07/10/23 Admitting Diagnosis Acute DVT Status Post Lumbar Laminectomy DM CAD Lumbar Stenosis ISHMAEL DS: Discharge Diagnosis Discharge Diagnosis (1) Acute deep vein thrombosis (DVT) of right lower extremity: Code(s): I82.401 - Acute embolism and thrombosis of unspecified deep veins of right lower extremity Status: Acute Assessment and Plan: * Continue Heparin drip for now with protocol. * All Deep veins in the RLE are involved. * Initial Dose Eliquis * Obtain CTA PE protocol to assess for further clot burden. * Bleeding precautions * Obtain ECHO to evaluate for clot burden. * Stop Warfarin. * 07/10: Heparin stopped, pt has now had two doses of Eliquis. Good pedal and posterior tibial pulses in the affected extremity without any mottling and no palpable cord. Pt stable for discharge today. (2) Pulmonary embolism: Code(s): I26.99 - Other pulmonary embolism without acute cor pulmonale Status: Acute Assessment and Plan: * Surveillance with CTA performed during hospitalization that identified bilateral PE's with relatively low clot burden in Bilateral upper lobes. 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 * No sign of heart strain * ECHO performed with unremarkable findings and EF of 60-65% w/normal LVSF. There is grade 1 diastolic dysfunction. No Pulmonary HTN identified. * Pt without symptoms of CP or dyspnea. (3) Status post lumbar laminectomy: Code(s): Z98.890 - Other specified postprocedural states Status: Acute Assessment and Plan: * Lumbar Laminectomy by Dr. Allison on 06/30/23. * Keep upcoming appointment in one week for suture removal * PRN Pain control * Fall Precautions * 07/10: Continue outpatient Home Health with [facility] as set up after your Lumbar Laminectomy surgery. We have verified that they are active and will resume pt's service this week. This was a question from the son at the bedside today. Pt will continue to follow up with [facility] for continued care post Lumbar laminectomy. (4) Insulin dependent diabetes mellitus: Status: Chronic Assessment and Plan: * Glucose checks AC and HS * SSI meals and at HS, moderate protocol * Hypoglycemia protocol * Continue Lantus * Heart Healthy diet * Hold oral hypoglycemics and switch to SSI Correction to obtain tighter glucose control to allow better healing of surgical wound. * 2: Pt's glucose continues to be high. Will adjust home medication. A1C is 7.7. He will need to follow up with PCP as outpatient for further monitoring. Stressed importance of diabetic diet to aid in glucose control and good glucose control to promote wound healing from surgery. (5) CAD (coronary artery disease): Code(s): I25.10 - Atherosclerotic heart disease of [place] coronary artery without angina pectoris Status: Chronic Assessment and Plan: * Monitor pt's VS and trend labs. * Heart healthy diet * Continue home medication. * 2: Continue home medication. Pt without any symptoms during this admission. ECHO performed with normal LVSF, 60-65% EF, no heart strain and Grade 1 Diastolic dysfunction. (6) Lumbar stenosis with neurogenic claudication: Code(s): M48.062 - Spinal stenosis, lumbar region with neurogenic claudication Status: Chronic Assessment and Plan: * Status post Lumbar Laminectomy as noted above. * See Plan for #2 (7) Lumbar post-laminectomy syndrome: Code(s): M96.1 -
--- NOTE | 2023-07-10 13:08 | PM.DS ---
DS: Admitting Diagnosis Discharge Date 07/10/23 Admitting Diagnosis Acute DVT Status Post Lumbar Laminectomy DM CAD Lumbar Stenosis ISHMAEL DS: Discharge Diagnosis Discharge Diagnosis (1) Acute deep vein thrombosis (DVT) of right lower extremity: Code(s): I82.401 - Acute embolism and thrombosis of unspecified deep veins of right lower extremity Status: Acute Assessment and Plan: Continue Heparin drip for now with protocol. All Deep veins in the RLE are involved. Initial Dose Eliquis Obtain CTA PE protocol to assess for further clot burden. Bleeding precautions Obtain ECHO to evaluate for clot burden. Stop Warfarin. 07/10: Heparin stopped, pt has now had two doses of Eliquis. Good pedal and posterior tibial pulses in the affected extremity without any mottling and no palpable cord. Pt stable for discharge today. (2) Pulmonary embolism: Code(s): I26.99 - Other pulmonary embolism without acute cor pulmonale Status: Acute Assessment and Plan: Surveillance with CTA performed during hospitalization that identified bilateral PE's with relatively low clot burden in Bilateral upper lobes. 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 No sign of heart strain ECHO performed with unremarkable findings and EF of 60-65% w/normal LVSF. There is grade 1 diastolic dysfunction. No Pulmonary HTN identified. Pt without symptoms of CP or dyspnea. (3) Status post lumbar laminectomy: Code(s): Z98.890 - Other specified postprocedural states Status: Acute Assessment and Plan: Lumbar Laminectomy by Dr. Allison on 06/30/23. Keep upcoming appointment in one week for suture removal PRN Pain control Fall Precautions 07/10: Continue outpatient Home Health with [facility] as set up after your Lumbar Laminectomy surgery. We have verified that they are active and will resume pt's service this week. This was a question from the son at the bedside today. Pt will continue to follow up with [facility] for continued care post Lumbar laminectomy. (4) Insulin dependent diabetes mellitus: Status: Chronic Assessment and Plan: Glucose checks AC and HS SSI meals and at HS, moderate protocol Hypoglycemia protocol Continue Lantus Heart Healthy diet Hold oral hypoglycemics and switch to SSI Correction to obtain tighter glucose control to allow better healing of surgical wound. 07/10: Pt's glucose continues to be high. Will adjust home medication. A1C is 7.7. He will need to follow up with PCP as outpatient for further monitoring. Stressed importance of diabetic diet to aid in glucose control and good glucose control to promote wound healing from surgery. (5) CAD (coronary artery disease): Code(s): I25.10 - Atherosclerotic heart disease of [place] coronary artery without angina pectoris Status: Chronic Assessment and Plan: Monitor pt's VS and trend labs. Heart healthy diet Continue home medication. 07/10: Continue home medication. Pt without any symptoms during this admission. ECHO performed with normal LVSF, 60-65% EF, no heart strain and Grade 1 Diastolic dysfunction. (6) Lumbar stenosis with neurogenic claudication: Code(s): M48.062 - Spinal stenosis, lumbar region with neurogenic claudication Status: Chronic Assessment and Plan: Status post Lumbar Laminectomy as noted above. See Plan for #2 (7) Lumbar post-laminectomy syndrome: Code(s): M96.1 - Postlaminectomy syndrome, not elsewhere classified Status: Chronic Assessment and Plan: See #2 (8) Obstructive sleep apnea: Code(s): G47.33 - Obstructive sleep apnea (adult) (pediatric) Status: Chronic Assessment and Plan: CPAP while inpt. May use from home. 07/10: Resume home therapy. (9) Gait abnormality: Code(s): R26.9 - Unspecified abnormalities of gait an
== END 2023-07-10 15:40 | disposition home health service (06) | DRG 299 ==
LOC: ANHED 19:52 → ANH3MEDSUR 21:00
PROVIDERS: Emergency Medicine; Internal Medicine; Admitting Provider Family Medicine; Emergency Provider Emergency Medicine; PCP Family Medicine; Visit Provider Nurse Practitioner Adult Health
DX: I82.411 Acute embolism and thrombosis of right femoral vein (principal); I26.99 Other pulmonary embolism without acute cor pulmonale; I82.431 Acute embolism and thrombosis of right popliteal vein; I82.451 Acute embolism and thrombosis of right peroneal vein; I82.441 Acute embolism and thrombosis of right tibial vein; I82.491 Acute embolism and thrombosis of other specified deep vein of right lower extremity; I25.10 Atherosclerotic heart disease of native coronary artery without angina pectoris; E11.9 Type 2 diabetes mellitus without complications; G47.33 Obstructive sleep apnea (adult) (pediatric); M48.061 Spinal stenosis, lumbar region without neurogenic claudication; M96.1 Postlaminectomy syndrome, not elsewhere classified; R26.9 Unspecified abnormalities of gait and mobility; K59.00 Constipation, unspecified; I71.20 Thoracic aortic aneurysm, without rupture, unspecified; K21.9 Gastro-esophageal reflux disease without esophagitis; I10 Essential (primary) hypertension; E03.9 Hypothyroidism, unspecified; E78.5 Hyperlipidemia, unspecified; Z85.51 Personal history of malignant neoplasm of bladder; Z79.01 Long term (current) use of anticoagulants; Z79.4 Long term (current) use of insulin; Z79.84 Long term (current) use of oral hypoglycemic drugs; Z86.73 Personal history of transient ischemic attack (TIA), and cerebral infarction without residual deficits; Z96.642 Presence of left artificial hip joint; Z96.651 Presence of right artificial knee joint; Z87.891 Personal history of nicotine dependence; Z98.890 Other specified postprocedural states
CPT/HCPCS: 36415; 71275; 80053; 82948; 83735; 85025; 85610; 85730; 93971; 96365; 96366; 96374; 99285; A9270; C8929; G0378; J1644; J1815; Q9957; Q9967

== ENCOUNTER 2023-08-07 09:53 | Emergency (ER) | payer MEDICARE, SELFPAY ==
[2023-08-07 10:23] VITALS: BP 143/92; PULSE 87; RESP 16; TEMP 36.8; O2SAT 97
--- NOTE | 2023-08-07 10:25 | ED.GENADULT ---
HPI - General Adult General Chief complaint: Urogenital-Male Stated complaint: TROUBLE URINATING/FOUL SMELL Source: patient, RN notes reviewed and old records reviewed Mode of arrival: ambulatory Limitations: no limitations History of Present Illness HPI narrative: 73-year-old male presents to [facility] with complaints dysuria, frequency, foul-smelling urine, and lower abdominal pain that started yesterday. Patient states had similar issue 2 weeks ago was seen at his PCP office. Patient also has a history of bladder cancer. Patient states did not have bladder removed. Related Data Home Medications Medication Instructions Recorded Confirmed levothyroxine 175 mcg tablet 175 mcg PO QAM 05/28/19 07/15/23 metformin 500 mg tablet,extended 1,000 mg PO BID 05/28/19 07/15/23 release 24hr (osmotic) insulin lispro 100 unit/mL See Rx Instructions .Route .COMPLEX 05/29/19 07/15/23 subcutaneous pen (Humalog KwikPen (U-100) Insulin) mecobalamin (vitamin B12) 1,000 1,000 mcg sublingual QAM 09/16/20 07/15/23 mcg disintegrating tablet,sublingual fltzxhfz-ukqb-dqzxt acid 400 1 tablet PO DAILY 02/13/22 07/15/23 mcg-lycopene 600 mcg-ginkgo 120 mg tablet omeprazole 20 mg capsule,delayed 20 mg PO DAILY 06/08/22 07/15/23 release semaglutide 1 mg/dose (4 mg/3 mL) 1.5 mg subcut WEEKLY 04/12/23 07/15/23 subcutaneous pen injector vibegron 75 mg tablet (Gemtesa) See Rx Instructions .Route .COMPLEX 04/21/23 07/15/23 fluorouracil 5 % topical solution 1 applic topical BID 06/16/23 07/15/23 insulin glargine 100 unit/mL (3 85 unit subcut HS 06/16/23 07/15/23 mL) subcutaneous pen (Lantus Solostar U-100 Insulin) Allergies Allergy/AdvReac Type Severity Reaction Status Date / Time No Known Allergies Allergy Verified 08/07/23 10:25 Review of Systems Constitutional: Constitutional: Reports no additional constitutional complaints, Denies body ache(s), Denies chills, Denies fatigue, Denies fever(s) and Denies headache(s) Eyes: Eyes: Reports no additional eye complaints and Denies blurry vision ENT: Reports system reviewed and no additional complaints, except as documented, Denies vertigo, Denies dizziness, Denies ear discharge, Denies otalgia, Denies facial pain, Denies headache(s), Denies nasal congestion, Denies nasal discharge, Denies sinus pain, Denies sinus pressure and Denies sore throat Cardiovascular: Cardiovascular: Reports no additional cardiovascular complaints, Denies chest pain, Denies chest pain at rest, Denies rapid heart rate and Denies dyspnea Respiratory: Respiratory: Reports no additional respiratory complaints, Denies chest congestion, Denies cough, Denies pain on inspiration, Denies pain with cough and Denies dyspnea Gastrointestinal: Gastrointestinal: Reports abdominal pain, Denies diarrhea, Denies nausea and Denies vomiting Genitourinary: Genitourinary: Reports oliguria, Reports dysuria, Reports urinary frequency and Reports urinary hesitancy Integumentary/Breasts: Skin/Breast: Denies rash Neurologic: Reports system reviewed and no additional complaints, except as documented, Denies vertigo, Denies dizziness and Denies headache(s) Endocrine: Endocrine: Denies fatigue [facility] Past Medical History Medical History Bladder cancer BMI 28.0-28.9,adult Cellulitis of arm, left Colon cancer screening Constipation Dysphagia Essential hypertension Fever Gastroesophageal reflux disease without esophagitis Hematuria History of CVA (cerebrovascular accident) History of DVT (deep vein thrombosis) Long-term anticoagulation History of DVT in adulthood History of esophageal dilatation Hyperlipidemia Hypothyroidism Insulin dependent diabetes mellitus Left carotid artery occlusion Nephrolithiasis Obstructive sleep apnea Pneumonia due to 2019 novel coronavirus Pulmonary embolism (07/09/23) Thoracic aortic aneurysm (TAA) Type 2 diabetes mellitus without
== END 2023-08-07 10:45 | disposition short-term general hospital (02) ==
PROVIDERS: Emergency Provider Registered Nurse; PCP Family Medicine
DX: R30.0 Dysuria (principal); R35.0 Frequency of micturition; Z87.891 Personal history of nicotine dependence; I65.22 Occlusion and stenosis of left carotid artery; I10 Essential (primary) hypertension; K21.9 Gastro-esophageal reflux disease without esophagitis; E78.5 Hyperlipidemia, unspecified; E03.9 Hypothyroidism, unspecified; E11.9 Type 2 diabetes mellitus without complications; Z79.4 Long term (current) use of insulin; Z79.84 Long term (current) use of oral hypoglycemic drugs; Z86.73 Personal history of transient ischemic attack (TIA), and cerebral infarction without residual deficits; Z86.718 Personal history of other venous thrombosis and embolism; Z86.711 Personal history of pulmonary embolism; Z85.51 Personal history of malignant neoplasm of bladder; Z96.651 Presence of right artificial knee joint; Z96.642 Presence of left artificial hip joint
CPT/HCPCS: 81003; 99212; G0463

== ENCOUNTER 2023-08-07 11:08 | Emergency (ER) | payer MEDICARE, SELFPAY ==
--- NOTE | ~2023-08-07 | CT_ITS ---
EXAMINATION: CT abdomen pelvis wo con DATE: 08/07/2023 12:50 INDICATION: Hematuria TECHNIQUE: Computed tomography (CT) of the abdomen and pelvis was performed without intravenous contr ast. The dose-length product was 852.37 mGy-cm. Automated exposure control and iterative reconstruction technique were employed. COMPARISON: CT dated 01/27/2023. FINDINGS: Lung bases are unremarkable. No significant pleural or pericardial effusion. The liver, spl een, pancreas, adrenal glands are unremarkable. There are gallstones. Mild right hydronephrosis. No o bstructing stone or mass. Bladder wall is thickened, although decompressed. Nonobstructive bowel gas pattern. Moderate diffuse atherosclerosis. Subtle low density lesions are present in the right kidney , most likely benign. There is focal cortical thinning posterior aspect of the left kidney, likely re flecting prior infection or reflux nephropathy. There is a left total hip arthroplasty. Moderate-roberto re lumbar spondylosis. IMPRESSION: 1. Cholelithiasis. 2: Diffuse bladder wall thickening which may be due to outlet obstruction from enlarged prostate gla nd and/or cystitis. 3: Mild right hydronephrosis without obstructing stone or mass. Reviewed, dictated and finalized at location A. IMPRESSION: 1. Cholelithiasis. 2: Diffuse bladder wall thickening which may be due to outlet obstruction from enlarged prostate gland and/or cystitis. 3: Mild right hydronephrosis without obstructing stone or mass.
[2023-08-07 11:26] VITALS: BP 159/101; PULSE 88; RESP 20; TEMP 36.4; O2SAT 98
[2023-08-07 12:31] LABS: Basophils Absolute Auto 0.1 K/mm3 (0.0-0.1); Basophils Percent Auto 0.7 % (0.2-1.2); Eosinophils Absolute Auto 0.6 K/mm3 (0-0.3); Hematocrit 48.4 % (42.0-52.0); Immature Granulocyte Absolute 0.05 K/mm3 (0.00-0.031); Immature Granulocyte Percent A 0.4 % (0-0.5); Lymphocytes Absolute Auto 1.92 K/mm3 (0.9-3.2); Lymphocytes Percent Auto 15.9 % (18.3-44.2); Mean Corpuscular HGB Conc 33.1 g/dl (32-36); Mean Corpuscular Hemoglobin 32.3 pg (26-34); Mean Corpuscular Volume 97.8 fl (80-100); Mean Platelet Volume 10.6 fl (7.4-10.4); Monocytes Absolute Auto 0.8 K/mm3 (0.1-0.6); Monocytes Percent Auto 6.7 % (2.6-8.5); Neutrophils Absolute Auto 8.6 K/mm3 (1.3-6.7); Neutrophils Percent Auto 71.3 % (45.5-73.1); Platelet Count Result 309 k/mm3 (150-375); Red Blood Count 4.95 M/mm3 (4.6-6.20); Red Cell Distribution Width 12.9 % (11.5-14.5); White Blood Count 12.1 K/mm3 (4.5-10.0)
[2023-08-07 12:36] LABS: Appearance Urine Cloudy (Clear); Bacteria Urine None Seen /hpf; Bilirubin Urine Negative (Negative); Blood Urine 3+ (Negative); Color Urine Yellow (Yellow); Glucose Urine UA Negative (Negative); Ketones Urine Negative (Negative); Leukocyte Esterase Ur 1+ LEU/UL (Negative); Nitrate Urine Negative (Negative); Non Pathogenic Casts 0-2; Protein Urine 3+ mg/dL (Negative); RBC Urine >100 /hpf (0-2); Specific Grav Ur 1.021 (1.001-1.035); Squamous Epithelial Cell Urine None Seen /hpf (Few); Urobilinogen Urine 0.2 mg/dL (<2.0); WBC Urine >100 /hpf (0-3); pH Urine 5.5 (5.0-9.0)
[2023-08-07 12:43] LABS: Anion Gap 7 mmol/L (8-16); Blood Urea Nitrogen 13 mg/dL (9-20); Calcium 10.7 mg/dL (8.4-10.2); Carbon Dioxide 25 mmol/L (22-30); Chloride 105 mmol/L (98-107); Estimated Glomerular Filt Rate > 60; Glucose 136 mg/dL (65-110); Potassium 4.3 mmol/L (3.4-5.0); Sodium 137 mmol/L (137-145)
[2023-08-07 12:51] LABS: Add Urine Microscopic? YES
[2023-08-07 13:13] LABS: INR 1.4; Prothrombin Time 17.6 Seconds (11.1-14.7)
--- NOTE | 2023-08-07 14:10 | ED.GENADULT ---
HPI - General Adult General Chief complaint: Urogenital-Male Stated complaint: DIFF URINATING,HX BLADDER.COLON CANCER Time Seen by Provider: 08/07/23 11:18 History of Present Illness HPI narrative: 73-year-old with history of hypertension, diabetes, bladder cancer presents to the ER with complaint of dysuria, blood in the urine for past few days. Patient states that he went to urgent care and was later referred here to the ER. He denies any fever or chills no history of nausea vomiting or flank pain Related Data Home Medications Medication Instructions Recorded Confirmed levothyroxine 175 mcg tablet 175 mcg PO QAM 05/28/19 08/07/23 metformin 500 mg tablet,extended 1,000 mg PO BID 05/28/19 08/07/23 release 24hr (osmotic) insulin lispro 100 unit/mL See Rx Instructions .Route .COMPLEX 05/29/19 08/07/23 subcutaneous pen (Humalog KwikPen (U-100) Insulin) mecobalamin (vitamin B12) 1,000 1,000 mcg sublingual QAM 09/16/20 08/07/23 mcg disintegrating tablet,sublingual jqrbchjx-tbad-gjnat acid 400 1 tablet PO DAILY 02/13/22 08/07/23 mcg-lycopene 600 mcg-ginkgo 120 mg tablet omeprazole 20 mg capsule,delayed 20 mg PO DAILY 06/08/22 08/07/23 release semaglutide 1 mg/dose (4 mg/3 mL) 1.5 mg subcut WEEKLY 04/12/23 08/07/23 subcutaneous pen injector vibegron 75 mg tablet (Gemtesa) See Rx Instructions .Route .COMPLEX 04/21/23 08/07/23 fluorouracil 5 % topical solution 1 applic topical BID 06/16/23 08/07/23 insulin glargine 100 unit/mL (3 85 unit subcut HS 06/16/23 08/07/23 mL) subcutaneous pen (Lantus Solostar U-100 Insulin) Allergies Allergy/AdvReac Type Severity Reaction Status Date / Time No Known Allergies Allergy Verified 08/07/23 10:25 Review of Systems Constitutional: Constitutional: Reports no additional constitutional complaints Eyes: Eyes: Reports no additional eye complaints ENT: Reports system reviewed and no additional complaints, except as documented Cardiovascular: Cardiovascular: Reports no additional cardiovascular complaints Respiratory: Respiratory: Reports no additional respiratory complaints Gastrointestinal: Gastrointestinal: Reports no additional gastrointestinal complaints Genitourinary: Genitourinary: Reports as per HPI Musculoskeletal: Musculoskeletal: Reports no additional musculoskeletal complaints Neurologic: Reports system reviewed and no additional complaints, except as documented Endocrine: Endocrine: Reports no additional endocrine complaints Hematologic/Lymphatic: Hematologic/Lymphatic: Reports no additional hematologic/lymphatic complaints Allergic/Immunologic: Allergic/Immunologic: Reports no additional allergic/immunologic complaints PMFSH Past Medical History Medical History Bladder cancer BMI 28.0-28.9,adult Cellulitis of arm, left Colon cancer screening Constipation Dysphagia Essential hypertension Fever Gastroesophageal reflux disease without esophagitis Hematuria History of CVA (cerebrovascular accident) History of DVT (deep vein thrombosis) Long-term anticoagulation History of DVT in adulthood History of esophageal dilatation Hyperlipidemia Hypothyroidism Insulin dependent diabetes mellitus Left carotid artery occlusion Nephrolithiasis Obstructive sleep apnea Pneumonia due to 2019 novel coronavirus Pulmonary embolism (07/09/23) Thoracic aortic aneurysm (TAA) Type 2 diabetes mellitus without complication, without long-term current use of insulin Surgical History Surgical History H/O lithotripsy History of biopsy of bladder History of cataract extraction History of knee replacement Partial right knee replacement Hx of laminectomy Status post hip replacement Left side Status post placement of ureteral stent Right side Family History Family History Father De
[2023-08-07 14:49] VITALS: BP 145/87; PULSE 82; RESP 18; TEMP 36.8; O2SAT 98
== END 2023-08-07 14:50 | disposition home or self-care (01) ==
PROVIDERS: Emergency Provider Family Medicine; PCP Family Medicine
DX: N30.91 Cystitis, unspecified with hematuria (principal); E11.9 Type 2 diabetes mellitus without complications; I10 Essential (primary) hypertension; E78.5 Hyperlipidemia, unspecified; E03.9 Hypothyroidism, unspecified; K21.9 Gastro-esophageal reflux disease without esophagitis; G47.33 Obstructive sleep apnea (adult) (pediatric); Z96.642 Presence of left artificial hip joint; Z96.0 Presence of urogenital implants; Z96.651 Presence of right artificial knee joint; Z86.718 Personal history of other venous thrombosis and embolism; Z85.51 Personal history of malignant neoplasm of bladder; Z86.16 Personal history of COVID-19; Z87.01 Personal history of pneumonia (recurrent); Z87.891 Personal history of nicotine dependence; Z98.49 Cataract extraction status, unspecified eye; Z79.4 Long term (current) use of insulin; Z79.85 Long-term (current) use of injectable non-insulin antidiabetic drugs; Z79.84 Long term (current) use of oral hypoglycemic drugs; N13.30 Unspecified hydronephrosis; K80.20 Calculus of gallbladder without cholecystitis without obstruction
CPT/HCPCS: 36415; 74176; 80048; 81001; 81003; 85025; 85610; 87086; 87088; 96365; 99284; J0696

== ENCOUNTER 2023-09-09 11:24 | Outpatient (CLI) | payer MEDICARE, SELFPAY ==
--- NOTE | ~2023-09-09 | XR_ITS ---
XR abdomen/kub 1V 09/09/2023 12:09 INDICATION: Renal stone TECHNIQUE: KUB COMPARISON: CT dated 08/07/2023 FINDINGS: Bowel gas pattern is normal. There is no evidence of free air, mass, organomegaly, ascites or obstruction. There are gallstones. There are additional radiodense disease in the upper abdomen, consistent with bowel content. No renal stones are identified. The bones appear intact. There is a le ft total hip arthroplasty. IMPRESSION: 1: Cholelithiasis. Reviewed, dictated and finalized at location B. IMPRESSION: 1: Cholelithiasis.
[2023-09-09 11:48] LABS: Hematocrit 49.3 % (42.0-52.0); Mean Corpuscular HGB Conc 32.5 g/dl (32-36); Mean Corpuscular Hemoglobin 32.2 pg (26-34); Mean Corpuscular Volume 99.2 fl (80-100); Mean Platelet Volume 10.8 fl (7.4-10.4); Platelet Count Result 258 k/mm3 (150-375); Red Blood Count 4.97 M/mm3 (4.6-6.20); Red Cell Distribution Width 13.1 % (11.5-14.5)
[2023-09-09 12:00] LABS: Albumin Level 4.6 g/dL (3.5-5.1); Anion Gap 10 mmol/L (4-12); Blood Urea Nitrogen 15 mg/dL (9-20); Calcium 10.5 mg/dL (8.4-10.2); Carbon Dioxide 23 mmol/L (22-30); Chloride 106 mmol/L (98-107); Estimated Glomerular Filt Rate > 60; Glucose 126 mg/dL (65-110); Phosphorus 2.3 mg/dL (2.5-4.5); Potassium 4.2 mmol/L (3.4-5.0); Sodium 139 mmol/L (137-145)
[2023-09-09 12:09] LABS: Parathyroid Intact 6.7 pg/mL (7.5-53.5)
[2023-09-09 13:07] LABS: Total Protein Urine Random 18 mg/dL; Ur Ttl Prot Creatinine Ratio 0.09 mg/mg (0-0.20)
== END 2023-09-09 11:25 | disposition home or self-care (01) ==
LOC: ANHLAB 11:29
PROVIDERS: PCP Family Medicine; Visit Provider Internal Medicine Nephrology
DX: N20.0 Calculus of kidney (principal); E11.9 Type 2 diabetes mellitus without complications; K80.20 Calculus of gallbladder without cholecystitis without obstruction
CPT/HCPCS: 36415; 74018; 80069; 82570; 83970; 84156; 85027

== ENCOUNTER 2023-12-09 10:33 | Outpatient (CLI) | payer MEDICARE, SELFPAY ==
[2023-12-09 12:10] LABS: Anion Gap 11 mmol/L (4-12); Blood Urea Nitrogen 13 mg/dL (9-20); Calcium 10.1 mg/dL (8.4-10.2); Carbon Dioxide 25 mmol/L (22-30); Chloride 103 mmol/L (98-107); Estimated Glomerular Filt Rate 59; Glucose 127 mg/dL (65-110); Magnesium 1.9 mg/dL (1.6-2.3); Potassium 4.2 mmol/L (3.4-5.0); Sodium 139 mmol/L (137-145)
== END 2023-12-09 10:34 | disposition home or self-care (01) ==
LOC: ANHLAB 10:36
PROVIDERS: PCP Family Medicine; Visit Provider Family Medicine
DX: I10 Essential (primary) hypertension (principal)
CPT/HCPCS: 36415; 80048; 83735

== ENCOUNTER 2024-02-17 15:58 | Outpatient (CLI) | payer MEDICARE, SELFPAY ==
[2024-02-17 16:12] LABS: Basophils Absolute Auto 0.1 K/mm3 (0.0-0.1); Basophils Percent Auto 0.7 % (0.2-1.2); Eosinophils Absolute Auto 0.3 K/mm3 (0-0.3); Eosinophils Percent Auto 3.2 % (0-4.4); Hematocrit 49.3 % (42.0-52.0); Hemoglobin 16.4 g/dL (14.0-18.0); Immature Granulocyte Absolute 0.03 K/mm3 (0.00-0.031); Immature Granulocyte Percent A 0.3 % (0-0.5); Lymphocytes Absolute Auto 1.62 K/mm3 (0.9-3.2); Mean Corpuscular HGB Conc 33.3 g/dl (32-36); Mean Corpuscular Volume 99.2 fl (80-100); Mean Platelet Volume 10.2 fl (7.4-10.4); Monocytes Absolute Auto 0.9 K/mm3 (0.1-0.6); Monocytes Percent Auto 9.9 % (2.6-8.5); Neutrophils Absolute Auto 6.1 K/mm3 (1.3-6.7); Neutrophils Percent Auto 67.9 % (45.5-73.1); Platelet Count Result 310 k/mm3 (150-375); Red Blood Count 4.97 M/mm3 (4.6-6.20); Red Cell Distribution Width 12.6 % (11.5-14.5)
[2024-02-17 16:39] LABS: Alanine Aminotransferase 20 U/L (6-50); Albumin Level 4.5 g/dL (3.5-5.1); Alkaline Phosphatase 71 U/L (38-126); Anion Gap 7 mmol/L (4-12); Aspartate Amino Transferase 26 U/L (17-59); Bilirubin,Total 0.7 mg/dL (0.2-1.3); Blood Urea Nitrogen 20 mg/dL (9-20); Calcium 9.9 mg/dL (8.4-10.2); Carbon Dioxide 31 mmol/L (22-30); Chloride 100 mmol/L (98-107); Estimated Glomerular Filt Rate > 60; Glucose 86 mg/dL (65-110); Potassium 4.1 mmol/L (3.4-5.0); Sodium 138 mmol/L (137-145)
== END 2024-02-17 15:59 | disposition home or self-care (01) ==
LOC: ANHLAB 16:02
PROVIDERS: PCP Family Medicine; Visit Provider Internal Medicine Hematology & Oncology
DX: D09.0 Carcinoma in situ of bladder (principal)
CPT/HCPCS: 36415; 80053; 85025

== ENCOUNTER 2024-03-09 01:11 | Day surgery (SDC) | payer MEDICARE, SELFPAY ==
[2024-03-07 11:01] VITALS: BMI 26.7
--- NOTE | 2024-03-07 11:18 | PC.NURSE ---
Report to the Outpatient Waiting Room, entrance under the green pavilion located off [facility], at time __1100am___on date 03/09/24 . Planned Procedure Time: __1:00pm .? Time changes happen often and if your time is changed the preop area will call you the afternoon before. - You and your visitor will be asked to self-screen and do not enter if you have any COVID symptoms. Please call surgeon if you need to reschedule. - A mask is optional within the hospital at this time. Patients may have clear liquids (water, carbonated beverages, clear teas, apple juice) until 3 hours prior to surgery with a maximum of 20 ounces. - No food from midnight until time of surgery and no smoking( 1000am) Take only 1/2 of your scheduled Lantus insulin that am Take only the following medications with a SIP of water on the morning of surgery: __Levothyroxine, Atenolol, Gabapentin, and Tramadol as needed DO NOT STOP ANY OF YOUR OTHER PRESCRIPTION MEDICATIONS PRIOR TO SURGERY EXCEPT THE FOLLOWING Medications to discontinue per physician Hold Eliquis for [address] Morel/Dr Flores Date to take last dose__03/06/24 Hold all vitamins and supplements 3 days prior per Anesthesia, Date of last dose is 03/05/24 Please no make-up, nail setswana, hairspray, perfume, deodorant, or body powder the day of surgery.? No jewelry (including any body piercings) or valuables the day of surgery, leave them at home.? Please take a shower or bath the night before, or the morning of, surgery with an antibacterial soap.? Wear comfortable, loose fitting clothing.? - Jewelry must be removed prior to entering the operating room.? Rings and piercings that are not removed may be cut off. - The hospital will not accept responsibility for valuables.? - Please leave all valuables, including medications, at home the day of surgery. If you are going home after surgery, a licensed driver license examiner must drive you home.? - NO public transportation without another adult if you receive anesthesia. - We recommend that an adult stay with you for 24 hours following discharge. - We also recommend that you do not drive, make important decision, drink alcoholic beverages, or take any drugs that were not prescribed by your health care provider for at least 24 hours after your discharge time. Follow any additional instructions given to you from your surgeon. Telephone instructions given to ____patient and asked if any additional questions and then verbalized understanding. Patient advised to call surgeon office or pre surgery nurse liaison [phone] if any additional questions.
--- NOTE | ~2024-03-09 | XR_ITS ---
EXAMINATION: XR chest port-a-cath/central DATE: 03/09/2024 15:01 INDICATION: Port placement. TECHNIQUE: A single frontal view of the chest was obtained. COMPARISON: Chest 2 views 03/15/2023 FINDINGS: There is mild atelectasis in left lower lung zone. No pleural effusion or pneumothorax. The heart size is normal. There is a right internal joint with port with tip at superior cavoatrial junc tion. IMPRESSION: 1. Port tip at superior cavoatrial junction. 2. Mild atelectasis in left lower lung zone. Reviewed, dictated and finalized at location A.
--- NOTE | ~2024-03-09 | XR_ITS ---
INTRAOPERATIVE FLUOROSCOPY: CLINICAL HISTORY: 73 years old Male; INSERTION DANIELA CATH PROCEDURE COMMENTS: Limited intraoperative fluoroscopy of the right chest was performed. CUMULATIVE DOSE: 3.4 mGy FLUOROSCOPY TIME: 23.3 seconds FINDINGS/IMPRESSION: Please refer to operative note for further details. Reviewed, dictated and finalized at location A.
[2024-03-09 11:38] LABS: Glucose Point of Care 134 mg/dl (65-105)
[2024-03-09 11:39] VITALS: BP 168/83; PULSE 90; TEMP 36.4; O2SAT 97; BMI 27.1
[2024-03-09] MEDS: LACTATED RINGERS 1,000 ML 30 ML IV CONT ×2 (11:42→14:47)
[2024-03-09] MEDS: KETOROLAC 15 MG/ML VIAL (*BKC) IV PUSH (11:42)
[2024-03-09 11:54] LABS: Prothrombin Time 13.8 Seconds (11.1-14.7)
[2024-03-09 11:55] LABS: Partial Thromboplastin Time 25.7 Seconds (22.3-36.8)
--- NOTE | 2024-03-09 12:47 | WPDANESEPPF ---
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 Patient Data Age: 73 Gender: M Height: 1.85 m Weight: 93.4 kg Last Vital Signs Temp 36.4 C 03/09/24 11:39 Pulse 90 03/09/24 11:39 BP 168/83 H 03/09/24 11:39 Pulse Ox 97 03/09/24 11:39 O2 Del Method Room Air 03/09/24 11:39 Allergies Allergy/AdvReac Type Severity Reaction Status Date / Time bactrim AdvReac Intermediate rash Uncoded 03/07/24 10:54 Home Medications Medication Instructions Recorded Confirmed Type levothyroxine 175 mcg tablet 175 mcg PO QAM 05/28/19 03/07/24 History metformin 500 mg tablet,extended 1,000 mg PO BID 05/28/19 03/07/24 History release 24hr (osmotic) insulin lispro 100 unit/mL See Rx Instructions .Route .COMPLEX 05/29/19 03/07/24 History subcutaneous pen (Humalog KwikPen (U-100) Insulin) mecobalamin (vitamin B12) 1,000 1,000 mcg sublingual QAM 09/16/20 03/07/24 History mcg disintegrating tablet,sublingual whczchuj-gmgw-qccfg acid 400 1 tablet PO DAILY 02/13/22 03/07/24 History mcg-lycopene 600 mcg-ginkgo 120 mg tablet omeprazole 20 mg capsule,delayed 20 mg PO DAILY 06/08/22 03/07/24 History release semaglutide 1 mg/dose (4 mg/3 mL) 1.5 mg subcut WEEKLY 04/12/23 03/07/24 History subcutaneous pen injector gabapentin 300 mg capsule 300 mg PO BID #60 caps 07/05/23 03/07/24 Rx celecoxib 200 mg capsule 200 mg PO BID #200 caps 07/15/23 03/07/24 Rx atenolol 50 mg tablet 50 mg PO QAM #90 tabs 12/28/23 03/07/24 Rx tramadol 50 mg tablet 50 mg PO Q6H PRN pain #120 tabs 02/07/24 03/07/24 Rx apixaban 5 mg tablet (Eliquis) 5 mg PO BID #180 tabs 02/12/24 03/07/24 Rx rosuvastatin 10 mg tablet 10 mg PO HS #90 tabs 02/28/24 03/07/24 Rx insulin glargine 100 unit/mL (3 45 unit subcut BID 03/07/24 03/07/24 History mL) subcutaneous pen (Lantus Solostar U-100 Insulin) Laboratory Tests 03/09/24 03/09/24 11:31 11:34 PT 13.8 Seconds (11.1-14.7) INR 1.0 APTT 25.7 Seconds (22.3-36.8) POC Capillary Glucose 134 H mg/dl (65-105) Patient hx anesthesia problems: none Family hx anesthesia problems: none Results Review: All pre-operative results and documents have been reviewed as part of the pre-operative evaluation. [facility] Past Medical History Medical History Bladder cancer Cellulitis of arm, left Colon cancer screening Constipation Dermatitis Dysphagia Essential hypertension Fever Gastroesophageal reflux disease without esophagitis Hematuria History of CVA (cerebrovascular accident) History of DVT (deep vein thrombosis) Long-term anticoagulation History of DVT in adulthood History of esophageal dilatation Hyperlipidemia Hypothyroidism Insulin dependent diabetes mellitus Left carotid artery occlusion Nephrolithiasis Obstructive sleep apnea Pneumonia due to 2019 novel coronavirus Pulmonary embolism (07/09/23) Thoracic aortic aneurysm (TAA) Type 2 diabetes mellitus without complication, without long-term current use of insulin Surgical History Surgical History H/O lithotripsy History of biopsy of bladder History of cataract extraction History of knee replacement Partial right knee replacement Hx of laminectomy Status post hip replacement Left side Status post placement of ureteral stent Right side Family History Family History Father Cancer Mother Cancer Grandparent Diabetes mellitus Social History Social History Social History: The patient lives with his sleeve in girlfriend. The patient quit smoking 40+ years ago. The patient has 2 children. His son is the durable power liner reroll tender for healthcare. The patient is retired from [employer]. 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 Patient occasionally has a beer on the weekend. Maybe 3 or 4 beers a week. Patient denies any marijuana or illicit drugs. Smoking packs per day: 1.5 Smoking cigarettes per day: 30.0 Years smoked: 10 Smoking pack-years: 15.00 Smoking status: Former smoker Second hand tobacco smoke exposure: No Alcohol intake: current Drinks per week: 2 Alcohol use details: BEERS Substance use: never Substance use type: does not use Do You Feel Safe in your Home?: Yes Lack of Transportation: No Lack of Food: Never True Current Housing: I Have Housing Concerned About Future Housing: No Difficulty Paying Gas/Electric Bills: No Difficulty Paying for Meds: No Currently Unemployed: No Education: Associate Degree Difficulty w/ Childcare or Family Care: No Living arrangements: alone Occupation/Education: retired Additional occupation/education comments: [employer]. Gender identity (if verbalized by the patient): Male Sexual Orientation (if Verbalized by the Patient): Straight or Heterosexual Spiritual care concerns: No Anes - Eval Final PreProcedure Day of Procedure 03/09/24 12:47 Patient weight: overweight Heart: regular rate and rhythm Lungs: clear to auscultation Airway: Mallampati scale class II Neurological: alert and oriented Last oral intake: >/= 8 hours ASA classification: III Emergent: no Anesthetic plan: proceed Anesthesia type and monitoring: general GIVS and standard monitoring Results Review: All pre-operative results and documents have been reviewed as part of the pre-operative evaluation. Informed Consent: The patient's anesthetic plan and its attendant risks and benefits were discussed with the patient/family/POA. Questions were solicited and answers provided to the satisfaction of the patient/family/POA.
--- NOTE | 2024-03-09 13:07 | P.HP_ITS ---
H&P: HPI History of Present Illness Date/Time: 03/09/24 13:07 Chief Complaint: bladder cancer Narrative: 73 y/o M presenting for placement of port. Pt c bladder cancer and going to undergo chemotherapy. Pt denies any previous central venous catheterization. Pt is right handed. Review of Systems Review of Systems: All systems reviewed & are unremarkable except as noted in HPI and below PMFSH Past Medical History Medical History Bladder cancer Cellulitis of arm, left Colon cancer screening Constipation Dermatitis Dysphagia Essential hypertension Fever Gastroesophageal reflux disease without esophagitis Hematuria History of CVA (cerebrovascular accident) History of DVT (deep vein thrombosis) Long-term anticoagulation History of DVT in adulthood History of esophageal dilatation Hyperlipidemia Hypothyroidism Insulin dependent diabetes mellitus Left carotid artery occlusion Nephrolithiasis Obstructive sleep apnea Pneumonia due to 2019 novel coronavirus Pulmonary embolism (07/09/23) Thoracic aortic aneurysm (TAA) Type 2 diabetes mellitus without complication, without long-term current use of insulin Surgical History Surgical History H/O lithotripsy History of biopsy of bladder History of cataract extraction History of knee replacement Partial right knee replacement Hx of laminectomy Status post hip replacement Left side Status post placement of ureteral stent Right side Family History Family History Father Cancer Mother Cancer Grandparent Diabetes mellitus Social History Social History Social History: The patient lives with his sleeve in girlfriend. The patient quit smoking 40+ years ago. The patient has 2 children. His son is the durable power business attorney for healthcare. The patient is retired from [employer]. 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 Patient occasionally has a beer on the weekend. Maybe 3 or 4 beers a week. Patient denies any marijuana or illicit drugs. Smoking packs per day: 1.5 Smoking cigarettes per day: 30.0 Years smoked: 10 Smoking pack-years: 15.00 Smoking status: Former smoker Second hand tobacco smoke exposure: No Alcohol intake: current Drinks per week: 2 Alcohol use details: BEERS Substance use: never Substance use type: does not use Do You Feel Safe in your Home?: Yes Lack of Transportation: No Lack of Food: Never True Current Housing: I Have Housing Concerned About Future Housing: No Difficulty Paying Gas/Electric Bills: No Difficulty Paying for Meds: No Currently Unemployed: No Education: Associate Degree Difficulty w/ Childcare or Family Care: No Living arrangements: alone Occupation/Education: retired Additional occupation/education comments: [employer]. Gender identity (if verbalized by the patient): Male Sexual Orientation (if Verbalized by the Patient): Straight or Heterosexual Spiritual care concerns: No Meds Home Medications and Allergies Home Medications Medication Instructions Recorded Confirmed Type levothyroxine 175 mcg tablet 175 mcg PO QAM 05/28/19 03/07/24 History metformin 500 mg tablet,extended 1,000 mg PO BID 05/28/19 03/07/24 History release 24hr (osmotic) insulin lispro 100 unit/mL See Rx Instructions .Route .COMPLEX 05/29/19 03/07/24 History subcutaneous pen (Humalog KwikPen (U-100) Insulin) mecobalamin (vitamin B12) 1,000 1,000 mcg sublingual QAM 09/16/20 03/07/24 History mcg disintegrating tablet,sublingual jllojkwz-pehx-lvuef acid 400 1 tablet PO DAILY 02/13/22 03/07/24 History mcg-lycopene 600 mcg-ginkgo 120 mg tablet omeprazole 20 mg capsule,delayed 20 mg PO DAILY 06/08/22 03/07/24 History release semaglutide 1 mg/dose (4 mg/3 mL) 1.5 mg subcut WEEKLY 04/12/23 03/07/24 History subcutaneous pen injector gabapentin 300 mg capsule 300 mg PO BID #60 caps 07/05/23 03/07/24 Rx celecoxib 200 mg capsule 200 mg PO BID #200 caps 07/15/23 03/07/24 Rx atenolol 50 mg tablet 50 mg PO QAM #90 tabs 12/28/23 03/07/24 Rx tramadol 50 mg tablet 50 mg PO Q6H PRN pain #120 tabs 02/07/24 03/07/24 Rx apixaban 5 mg tablet (Eliquis) 5 mg PO BID #180 tabs 02/12/24 03/07/24 Rx rosuvastatin 10 mg tablet 10 mg PO HS #90 tabs 02/28/24 03/07/24 Rx insulin glargine 100 unit/mL (3 45 unit subcut BID 03/07/24 03/07/24 History mL) subcutaneous pen (Lantus Solostar U-100 Insulin) Allergies Allergy/AdvReac Type Severity Reaction Status Date / Time bactrim AdvReac Intermediate rash Uncoded 03/07/24 10:54 Vital Signs Vital Signs - 24 hr 03/09/24 11:39 Temperature 36.4 C Pulse Rate 90 Blood Pressure 168/83 H Pulse Oximetry 97 Oxygen Delivery Room Air Exam Const: General: cooperative, comfortable, no acute distress and ill appearing Neck: Neck: normal visual inspection, full ROM and no lymphadenopathy Chest: Chest palpation & inspection: normal inspection of the chest Resp: Auscultation: clear to auscultation bilaterally Cardio: Rate: regular rate Rhythm: regular rhythm GI: Inspection: normal to inspection and non-distended Assessment and Plan Assessment and plan (1) Bladder cancer: Qualifiers: Bladder location: unspecified site Qualified Code(s): C67.9 - Malignant neoplasm of bladder, unspecified Code(s): C67.9 - Malignant neoplasm of bladder, unspecified Status: Acute Assessment and Plan: will setup for port placement
--- NOTE | 2024-03-09 13:09 | WPDHPUPDATE1 ---
History and Physical Update Update Date/Time: 03/09/24 13:09 History and Physical has been reviewed, including an updated exam of the patient. There are NO changes in the patient's condition. Risks, benefits, and alternatives have been discussed and questions answered. Patient agrees to proceed with procedure.
[2024-03-09] MEDS: ceFAZolin 2 GM/D5W 50 ML 2 GM/50 ML BAG IVPB (13:11)
[2024-03-09] MEDS: BUPIVACAINE/EPINEPHRINE 0.5% 50 ML VIAL INFILTRATE (14:34)
[2024-03-09] MEDS: HEPARIN SODIUM, PORCINE 10,000 UNITS/10 ML VIAL 10000 UNITS IV PUSH (14:34)
[2024-03-09] MEDS: HEPARIN SODIUM 5,000 UNITS/ML VIAL 5000 UNITS IRRIGATION (14:34)
[2024-03-09 14:47] VITALS: BP 170/86; PULSE 79; RESP 16; O2SAT 98
--- NOTE | 2024-03-09 14:52 | W.PM.PROC2 ---
Procedure Note - Detailed Date of Procedure 03/09/24 Pre-op Diagnosis bladder cancer Post-op Diagnosis Same Procedure Performed placement of right internal jugular venous access device under fluoroscopic and ultrasound guidance Surgeon Josephine Flores MD Anesthesia MAC and Local Indications 73-year-old male with bladder cancer needing access for chemotherapy Findings very stenosed left internal jugular vein, ability to cannulate left subclavian vein however could not get catheter to pass likely secondary to anatomic angulation Description of Procedure Patient was brought into the operating room and placed in the supine position. After adequate induction of mac anesthesia, the patient was prepped and draped in normal sterile fashion. Time-out was then done to verify the patient's identity, as well as the procedure being performed. I first tried to visualize the left internal jugular vein with the ultrasound. The vein was visualized, however was noted to be very stenosed. I was able to cannulate the vein, however I was unable to pass the guidewire. Given this finding, I used the 18 gauge needle to gain access into the left subclavian vein. This was done without difficulty. I then was able to easily pass the guidewire into the left subclavian vein. Proper positioning was confirmed via fluoroscopy. I then enlarged the incision around the guidewire including making a pocket inferiorly to allow placement of the port itself. Under fluoroscopic guidance, placed the dilating sheath over the guidewire into the left subclavian vein. I then removed the dilator and the guidewire just leaving the sheath in the vein. I then attempted to place the catheter into the vein. Despite multiple attempts, I could not get the catheter to pass into the vein. This was likely due to the anatomic angulation of the clavicle in the subclavian vein. The decision was then made to abort this side and proceed with right-sided placement. The incision was closed with 3-0 Vicryl suture at the subcutaneous level. The skin was closed with 4-0 Monocryl subcuticular suture. I then used the ultrasound to gain access into the right internal jugular vein. Once access was gained, I placed the guidewire in the vein and confirmed proper positioning using fluoroscopy. I then locally anesthetized an area in the right chest. I then made an incision including making a subcutaneous pocket inferiorly to allow placement of the port itself. I proceeded to tunnel the catheter from the chest to the right neck insertion site. I then placed a dilating sheath over the guidewire into the right internal jugular vein via sterile Seldinger technique. This was once again done and confirmed via fluoroscopic guidance. I then removed the dilator and the guidewire, now just leaving the sheath in the vein. I then fed the previously flushed catheter into the right internal jugular vein under fluoroscopic guidance. At approximately 26 cm, the catheter was noted to be near the atrial caval junction. I then peeled away the sheath, now just leaving the catheter in the vein. I then was able to easily draw and flush from the catheter. The catheter was cut to fit and attached to the port itself. The port was placed into the previously made subcutaneous pocket and sutured in with 0 Ethibond suture. Final fluoroscopic view showed the termination of the catheter at the atrial caval junction with a nice smooth curvature back to the port itself. I was able to gain access to the port with a Peng needle and was able to easily draw and flush from the port. I then flushed 4 cc of a final heparin flush into the port. The incision was closed with 3 0 Vicryl suture in the subcutaneous tissue and the skin was closed with 4 O Monocryl subcuticular suture. Dermabond was then placed on wound. The patient tolerated the procedure well and will be sent to the recovery room in stable condition. Implants RIJ VAD Estimated Blood Loss 20 Pathology None sent Complications No immediate complications Condition Stable Disposition PACU [facility] Billing Surgery - Charge Forward: Surgery Billing
[2024-03-09 14:58] LABS: Glucose Point of Care 120 mg/dl (65-105)
[2024-03-09 15:15] VITALS: BP 167/78; PULSE 77; RESP 16
[2024-03-09 15:45] VITALS: BP 177/79; PULSE 76; RESP 16
[2024-03-09] MEDS: oxyCODONE HCL (*CRX) 5 MG TAB IR PO (15:51)
[2024-03-09 16:15] VITALS: BP 176/74; PULSE 75; RESP 16
== END 2024-03-09 16:17 | disposition home or self-care (01) ==
PROVIDERS: PCP Family Medicine; Visit Provider Surgery
PROC: (CPT 36561; principal; 2024-03-09 13:00)
DX: C67.9 Malignant neoplasm of bladder, unspecified (principal); I10 Essential (primary) hypertension; E11.9 Type 2 diabetes mellitus without complications; G47.33 Obstructive sleep apnea (adult) (pediatric); E78.5 Hyperlipidemia, unspecified; E03.9 Hypothyroidism, unspecified; K21.9 Gastro-esophageal reflux disease without esophagitis; I71.20 Thoracic aortic aneurysm, without rupture, unspecified; Z86.73 Personal history of transient ischemic attack (TIA), and cerebral infarction without residual deficits; Z79.84 Long term (current) use of oral hypoglycemic drugs; Z79.4 Long term (current) use of insulin; Z79.01 Long term (current) use of anticoagulants; Z79.85 Long-term (current) use of injectable non-insulin antidiabetic drugs; Z86.718 Personal history of other venous thrombosis and embolism; Z86.711 Personal history of pulmonary embolism; Z87.891 Personal history of nicotine dependence
CPT/HCPCS: 36561 ×2; 36415; 77001; 82948; 85610; 85730; A9270; C1769; C1788; J0690; J1644; J1885; J2003; J2405; J2704; J7030; J7120

== ENCOUNTER 2024-04-11 12:18 | Outpatient (CLI) | payer MEDICARE, SELFPAY ==
[2024-04-11 12:49] LABS: Albumin Level 4.5 g/dL (3.5-5.1); Anion Gap 6 mmol/L (4-12); Blood Urea Nitrogen 13 mg/dL (9-20); Carbon Dioxide 31 mmol/L (22-30); Chloride 103 mmol/L (98-107); Estimated Glomerular Filt Rate > 60; Glucose 171 mg/dL (65-110); Potassium 4.6 mmol/L (3.4-5.0); Sodium 140 mmol/L (137-145); Uric Acid 3.4 mg/dL (3.5-8.5)
[2024-04-11 12:58] LABS: Add Urine Microscopic? YES; Appearance Urine Turbid (Clear); Bacteria Urine None Seen /hpf; Bilirubin Urine 1+ (Negative); Blood Urine 2+ (Negative); Glucose Urine UA Trace mg/dL (Negative); Ketones Urine Negative (Negative); Leukocyte Esterase Ur 2+ LEU/UL (Negative); Nitrate Urine Positive (Negative); Non Pathogenic Casts 0-2; Protein Urine 2+ mg/dL (Negative); RBC Urine >100 /hpf (0-2); Specific Grav Ur 1.026 (1.001-1.035); Squamous Epithelial Cell Urine Few /hpf (Few); WBC Urine >100 /hpf (0-3); pH Urine 5.5 (5.0-9.0)
[2024-04-11 13:02] LABS: Color Urine Amber (Yellow)
== END 2024-04-11 12:19 | disposition home or self-care (01) ==
LOC: ANHLAB 12:21
PROVIDERS: PCP Family Medicine; Visit Provider Internal Medicine Nephrology
DX: N20.0 Calculus of kidney (principal); I10 Essential (primary) hypertension
CPT/HCPCS: 36415; 80069; 81001; 84550

== ENCOUNTER 2024-04-25 15:24 | Outpatient (CLI) | payer MEDICARE, SELFPAY ==
--- NOTE | ~2024-04-25 | XR_ITS ---
XR abdomen/kub 1V Ordering provider: Jonathan Chand MD History: . R82.81 - Pyuria . Comparison: None. FINDINGS: BOWEL: Nonobstructive bowel gas pattern. ORGANOMEGALY: None. SIGNIFICANT PATHOLOGIC CALCIFICATIONS: Multiple calcifications in the right upper quadrant which may be gallbladder stones. OTHER: No free air is seen under the diaphragm. Degenerative the spine. Left hip arthroplasty. IMPRESSION: NO ACUTE ABDOMINAL FINDINGS. Possible gallstones. Reviewed, dictated and finalized at location A. 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
[2024-04-25 17:52] LABS: Add Urine Microscopic? YES; Appearance Urine Turbid (Clear); Bacteria Urine 4+ /hpf; Bilirubin Urine 2+ (Negative); Blood Urine 3+ (Negative); Glucose Urine UA 3+ mg/dL (Negative); Ketones Urine Negative (Negative); Leukocyte Esterase Ur 2+ LEU/UL (Negative); Mucus Urine Present /lpf; Need Manual Microscopic Reviewed; Nitrate Urine Positive (Negative); Protein Urine 3+ mg/dL (Negative); RBC Urine >100 /hpf (0-2); Specific Grav Ur 1.028 (1.001-1.035); Squamous Epithelial Cell Urine Few /hpf (Few); WBC Urine >100 /hpf (0-3)
[2024-04-25 17:53] LABS: Color Urine Amber (Yellow)
== END 2024-04-25 15:25 | disposition home or self-care (01) ==
PROVIDERS: PCP Family Medicine; Visit Provider Internal Medicine Nephrology
DX: R82.998 Other abnormal findings in urine (principal); R82.81 Pyuria; N20.0 Calculus of kidney
CPT/HCPCS: 74018; 81001; 87077; 87086; 87186

== ENCOUNTER 2024-07-29 03:00 | Inpatient (IN) | payer MEDICARE, SELFPAY ==
[2024-07-29] VITALS (26 sets, daily range): BP systolic 137–171; BP diastolic 70–88; PULSE 67–90; RESP 12–20; TEMP 36.2–36.9; O2SAT 95–100; BMI 28.3
--- NOTE | ~2024-07-29 | CT_ITS ---
CT head without contrast Indication: Altered mental status Technique: Serial scans were obtained through the brain without the administration of contrast. Dose reduction technique was used on this scan by utilizing automated exposure control and iterative recon struction technique. The dose-length product (DLP) was 681.00 mGy-cm. Findings: There is no evidence of intracranial hemorrhage, mass lesion, or acute infarct. The ventri cles and subarachnoid spaces are dilated, consistent with moderate atrophy. Low attenuation regions are seen within the periventricular white matter bilaterally, likely representing changes from chroni c microvascular ischemic disease. There is no evidence of edema, mass effect or midline shift. The visualized paranasal sinuses and mastoid air cells are clear. Impression: No intracranial hemorrhage, mass, or acute infarct. Atrophy and chronic white matter changes, as above. Reviewed, dictated and finalized at location . Impression: No intracranial hemorrhage, mass, or acute infarct. Atrophy and chronic white matter changes, as above.
--- NOTE | ~2024-07-29 | US_ITS ---
EXAMINATION: US renal BI DATE: 07/29/2024 16:58 INDICATION: Hematuria TECHNIQUE: Multiple grayscale and Doppler ultrasound images of the kidneys were obtained. COMPARISON: CT abdomen pelvis 08/07/2023 FINDINGS: The right kidney measures 12.3 x 6.5 x 5.8 cm. The left kidney measures 12.1 x 6.9 x 4.8 cm. The kidn eys demonstrate normal parenchymal echogenicity. Simple 1.6 cm right midpole cyst There is no hydrone phrosis. The bladder is normal. IMPRESSION: Unremarkable renal sonogram findings. Reviewed, dictated and finalized at location K.
--- NOTE | ~2024-07-29 | MR_ITS ---
MRI of the brain Clinical History: TIA Technique: Axial and sagittal T1-weighted images were acquired. These were followed by axial T2-weigh carol ann, diffusion weighted, gradient, and FLAIR images. Following intravenous administration of 20 cc Pr oHance gadolinium, T1-weighted fat-sat imaging was performed in the axial and coronal planes. Findings: There is no acute infarct, intracranial hemorrhage, or mass lesion. There is moderate to se marleny chronic white matter disease in the periventricular white matter bilaterally. Small chronic [place] infarcts are present in the bilateral basal ganglia. Ventricles and subarachnoid spaces are dilated. Orbits are unremarkable. Paranasal sinuses and mastoi d air cells are clear. Major intracranial flow voids appear intact. Sagittal midline structures are intact. No abnormal postcontrast enhancement identified. IMPRESSION: No acute infarct, intracranial hemorrhage, or mass lesion. Small chronic bilateral basal ganglia lacunar infarcts. Advanced chronic microvascular ischemic change and moderate generalized atrophy. Reviewed, dictated and finalized at [facility]. IMPRESSION: No acute infarct, intracranial hemorrhage, or mass lesion. Small chronic bilateral basal ganglia lacunar infarcts. Advanced chronic microvascular ischemic change and moderate generalized atrophy .
--- NOTE | ~2024-07-29 | XR_ITS ---
Portable chest x-ray Comparison: 03/09/2024 Clinical History: Altered mental status Findings: Right-sided Mediport in place. Lungs are clear, without focal consolidation or pleural eff usion. Cardiomediastinal silhouette is stable. Bones and soft tissues are unremarkable. Impression: Clear lungs. Stable Mediport. Reviewed, dictated and finalized at location . Impression: Clear lungs. Stable Mediport.
--- NOTE | ~2024-07-29 | CT_ITS ---
CT ANGIOGRAM NECK AND HEAD History: Right-sided weakness. Technique: Serial spiral axial images through the head and neck were obtained during arterial phase I V injection of 100 cc of Omnipaque 350. 3-D postprocessing and MIP images were then reconstructed on the remote workstation. Dose reduction technique was used on this scan by utilizing automated exposur e control and iterative reconstruction technique. The dose-length product (DLP) was 1123.02 mGy-cm. CTA neck findings: Bilateral vertebral arteries are patent, with relatively hypoplastic right verteb ral artery as compared to the left. Right common carotid, internal carotid, and external carotid linh fred are patent. There is prominent calcified plaque at the right carotid bifurcation/proximal right internal carotid artery with probable moderate stenosis of approximately 60 %. Left common carotid an d external carotid arteries are patent. There is complete occlusion at the origin of the left interna l carotid artery. No reconstitution evident along the course of the left internal carotid artery. The proximal right internal carotid artery demonstrates 60% stenosis relative to the normal distal arter y lumen diameter. The proximal left internal carotid artery demonstrates complete occlusion. CTA head findings: Distal vertebral arteries, basilar artery, and posterior cerebral arteries are pat ent. Distal right internal carotid artery is patent. Complete absence of opacification of the distal left internal carotid artery. Bilateral middle cerebral arteries and bilateral anterior cerebral linh fred are patent, without evidence of stenosis or occlusion. Filling of the left side is presumably du e to collateral flow through the [place]. No aneurysm identified. Impression: Complete occlusion of the origin of the left internal carotid artery, with no evidence for reconstitu tion along the entire course of the left internal carotid artery. Probable moderate stenosis at the proximal right internal carotid artery, probably approximately 60 % . Consider carotid duplex ultrasound or MRA as indicated to further evaluate. Reviewed, dictated and finalized at location [facility]. Impression: Complete occlusion of the origin of the left internal carotid artery, with no e vidence for reconstitution along the entire course of the left internal carotid artery. Probable moderate stenosis at the proximal right internal carotid artery, proba katie approximately 60 %. Consider carotid duplex ultrasound or MRA as indicated to further evaluate.
[2024-07-29 03:16] LABS: Glucose Point of Care 107 mg/dl (65-105)
--- OUTSIDE RECORDS SUMMARY | 2024-07-29 04:30 | XMS_ITS | Encounter Summary ---
Author Organization [facility] Address 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 Gender Identity Not on file Sexual Orientation Not on file documented as of this encounter Plan of Treatment Upcoming Encounters Date Type Department Care Team (Late st Contact Info) Description 08/22/2024 9:45 AM CDT Office Visit [facility] Oncology and Hematology - [place] [address] [facility] [address] [place] [address] Mikael Gomes MD [address] [facility] [address] [place] [address] documented as of this encounter Procedures Procedure Name Priority Date/Time Associated Diagnosis Comments SPINAL FLUID CELL COUNT W/REFLEXIVE DIFF Routine 08/31/2006 10:25 AM CDT TOTAL PROTEIN, CSF Routine 08/31/2006 10 :25 AM CDT GLUCOSE, CSF Routine 08/31/2006 10:25 AM CDT documented in this encounter Results * TOTAL PROTEIN, CSF (08/31/2006 10:25 AM CDT) PROTEIN, CSF 40 15 - 45 mg/dL INTERFACE SYSTEM 08/31/2006 10:2 5 AM CDT Cornelius Orlando MD BODY FLUIDS AND STOOLS Edited Performing Organization Address [facility] de Phone Number INTERFACE SYSTEM Refer to clinic/hospital department * (ABNORMAL) GLUCOSE, CSF (08/31/2006 10:25 AM CDT) GLUCOSE, CSF 95(H) 40 - 70 mg/dL INTERFACE SYSTEM 08/31/2006 10:2 5 AM CDT us Cornelius Orlando MD BODY FLUIDS AND STOOLS Edited Performing Organization Address [facility] Phone Number INTERFACE SYSTEM Refer to clinic/hospital department * (ABNORMAL) SPINAL FLUID CELL COUNT W/REFLEXIVE DIFF (08/31/2006 10:25 AM CDT) COLOR, CSF Colorless Colorless INTERFACE SYSTEM APPEARANCE, CSF Clear Clear INTERFACE SYSTEM TUBE #, CSF 1 INTERFAC E SYSTEM VOLUME, CSF 1.5 mL INTERFAC E SYSTEM WBC, CSF 0 0 - 10 /uL INTERFACE SYSTEM RBC, CSF 273(H) <=0 /uL INTERFACE SYSTEM 08/31/2006 10:2 5 AM CDT us Cornelius Orlando MD BODY FLUIDS AND STOOLS Edited Performing Organization Address [facility] Phone Number INTERFACE SYSTEM Refer to clinic/hospital department documented in this encounter Visit Diagnoses Diagnosis Spinal stenosis, lumbar region, without neurogenic claudication- Primary documented in this encounter Care Teams Rv Parts And Service Director Relationship Specialty Start Date End Date Pantera Bolivra MD [address] [place] [address] [address] [place] [address] PCP - General 05/02/15 documented as of this encounter
--- OUTSIDE RECORDS SUMMARY | 2024-07-29 04:30 | XMS_ITS | Encounter Summary ---
Author Organization [facility] Address [address] [place] [address] Care Team Providers Care Adjunct Philosophy Faculty Name Role Phone Pantera Bolivar MD Primary Care Provider [phone] Encounter Details Date Type Department Care Team (Late Contact Info) Description 07/24/2024 Orders Only [facility] [address] [place] [address] Mikael Gomes MD [facility] [email or web address] [address] [place] [phone] Carcinoma in situ of bladder Social History Tobacco Use Types Packs/Day Years Used Date Smoking Tobacco: Former Cigarettes 2 10 Q uit: 02/16/1989 Alcohol Use Standard Drinks/Week Comments Yes 0 (1 standard drink = 0.6 oz pur e alcohol) occasionally Sex and Gender Information Value Date Recorded Sex Assigned at Not on file 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 Gender Identity Not on file Sexual Orientation Not on file documented as of this encounter Plan of Treatment Upcoming Encounters Date Type Department Care Team (Late st Contact Info) Description 08/22/2024 9:45 AM CDT Office Visit [facility] [address] [place] [address] Mikael Gomes MD [address] [email or web address] [address] [place] [phone] documented as of this encounter Procedures Procedure Name Priority Date/Time Associated Diagnosis Comments BASIC METABOLIC PANEL Routine 07/11/2024 4:23 PM BIOENGINEER CBC WITH DIFFERENTIAL Routine 07/11/2024 2:25 PM BIOENGINEER documented in this encounter Results * BASIC METABOLIC PANEL (07/11/2024 4:23 PM BIOENGINEER) Blood us Mikael Gomes MD CHEMISTRY ORDERABLES Final Resu lt * CBC WITH DIFFERENTIAL (07/11/2024 2:25 PM BIOENGINEER) Blood us Mikael Gomes MD HEMATOLOGY ORDERABLES Final Res ult documented in this encounter Visit Diagnoses Diagnosis Carcinoma in situ of bladder documented in this encounter Care Teams Adjunct Philosophy Faculty Relationship Specialty Start Date End Date Pantera Bolivar MD [address] [place] [id number] PCP - General 05/02/15 documented as of this encounter
--- OUTSIDE RECORDS SUMMARY | 2024-07-29 04:30 | XMS_ITS | Referral Summary ---
Author Organization [facility] Address [address] [place] [address] Care Team Providers Care Athletic Instructor Name Role Phone Larry Morel MD Primary Care Provider [phone] Noam Horn MD Unavailable [phone] Hao Perez MD Unavailable [phone] Encounters Date Type Department Care Team Description 06/27/2024 11:20 AM ATOMIC WELDER Office Visit [facility] Orthopaedic Surgery [address] 6[address] [place] [address] [place] [address] Issa Montana MD Arthritis of carpometacarpal (CMC) joint of left thumb (Primary Dx); Arthritis, degenerative, localized, primary, hand, left from Last 3 Months Allergies Active Allergy Reactions Criticality Noted Date Comments Sulfamethoxazole-Trimethoprim Hives Medium 2023 Unsure if caused by bactrim or pyridium Phenazopyridine Hives Medium 04/08/2024 Patient states he is unsure if he got hives from Pyridium or Bactrim. Medications traMADol (ULTRAM) 50 mg tablet TAKE 50 MG Takes 4 tablet in a.m. and 2 tablets in p.m. 4 Active rosuvastatin (CRESTOR) 10 mg tablet Take 1 tablet (10 mg total) by mouth nightly 0 9 Active TRUEPLUS PEN NEEDLE 31 gauge x 5/16 needle U UTD 5 TIMES A DAY 3 9 Active omeprazole (PriLOSEC) 20 mg capsule Take 1 capsule (20 mg total) by mouth every morning 1 9 Active HUMALOG KWIKPEN INSULIN 100 unit/mL insulin pen 3 (three) times a day 1 9 Active LANTUS SOLOSTAR U-100 INSULIN 100 unit/mL (3 mL) insulin pen 2 (two) times a day 45 units in AM 85 units in PM 1 9 Active gabapentin (NEURONTIN) 300 mg capsule TK ONE C PO TID 0 9 Active fenofibrate micronized (LOFIBRA) 200 mg capsuleIndications: hyperlipidemia Take 1 capsule (200 mg total) by mouth every morning 0 9 Active celecoxib (CeleBREX) 200 mg capsule TK ONE C PO BID 0 9 Active atenolol (TENORMIN) 50 mg tablet Take 1 tablet (50 mg total) by mouth every morning 1 9 Active cyanocobalamin (Vitamin B-12) 1,000 mcg tablet Take by mouth every morning 0 Active multivitamin capsule Take 1 capsule by mouth every morning Active levothyroxine (SYNTHROID) 175 mcg tablet TAKE 1 TABLET BY MOUTH ONCE A DAY IN THE MORNING ON AN EMPTY STOMACH 1 Active metFORMIN XR (GLUCOPHAGE XR) 500 mg 24 hr tablet Take 2 tablets (1,000 mg total) by mouth 2 (two) times a day 3 Active Ozempic 1 mg/dose (4 mg/3 mL) pen injector injection INJECT 1 MG UNDER THE SKIN ONCE WEEKLY 4 Active apixaban (ELIQUIS) 5 mg tablet Take 1 tablet (5 mg total) by mouth 2 (two) times a day Active HYDROcodone-acetami nophen (NORCO) 5-325 mg per tablet Take by mouth every 6 (six) hours as needed 4 Active lidocaine-prilocain e cream Apply a quarter size amount 30 minutes piror to port access. 4 Active ondansetron ODT (ZOFRAN-ODT) 8 mg disintegrating tablet Dissolve 1 tablet on top of tongue then swallow with saliva every 8 hours as needed for nausea or vomiting 4 Active Active Problems Problem Noted Date Diagnosed Date Gluteal tendinitis 06/27/2024 Osteoarthritis of knee 04/21/2022 Pain in joint of right hip 03/25/2022 Essential hypertension 06/16/2021 Calculus of kidney 06/16/2021 Chronic pain syndrome 03/25/2021 Enthesopathy of hip region 03/25/2021 Lumbosacral spondylosis without myelopathy 03/25 Spinal enthesopathy 03/25/2021 Osteoarthritis of carpometac arpal (CMC) joint of right thumb 07/29/2020 Overview (07/29/2020): Added automatically from request for surgery [id number] 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 2-3 times a week 08/01/2020 Q2: How many drinks containi ng alcohol do you have on a typical day when you are drinking? 3 or 4 08/01/2020 Q3: How often do you have si x or more drinks on one occasion? Never 08/01/2020 Sex and Gender Information Value Date Recorded Sex Assigned at Not on file Legal Sex Male 10:29 AM ATOMIC WELDER Gender Identity Not on file Sexual Orientation Not on file Last Filed Vital Signs Vital Sign Reading Time Taken Comments Blood Pressure 150/80 04/08/2024 3:46 PM ATOMIC WELDER Pulse 80 04/08/2024 3:46 PM ATOMIC WELDER Temperature 36.8 C (98.2 F) 04/08/2024 3:46 PM ATOMIC WELDER Respiratory Rate 20 04/08/2024 3:46 PM ATOMIC WELDER Oxygen Saturation 99% 04/08/2024 3:46 PM ATOMIC WELDER Inhaled Oxygen Concentration - - Weight 94.2 kg (207 lb 9.6 oz) 04/08/2024 3:46 P M ATOMIC WELDER Height 185.4 cm (6' 1 ) 04/08/2024 3:46 PM ATOMIC WELDER Body Mass Index 27.39 04/08/2024 3:46 PM ATOMIC WELDER Plan of Treatment Not on file Medical Devices Implanted Type Area Medical Doctor Nuclear Medicine Device Identifier Shelf Expiration Date Model / Serial / Lot [employer] Ar-8978-Cp Internalbrace Kit Hand Wrist Set Implant Ligament Augmentation - [id number] Implanted:Qty: 1 on 08/14/2020 by Issa Montana MD at [facility] Right: Thumb [employer] [id number] 06/16/2025 AR-8978-C P / / [id number] Small Bone Innovations Mcp-50 Mcp 50 Joint Finger Silicone Ii Sterile Latex Free - [id number] Implanted:Qty: 1 on 08/14/2020 by Issa Montana MD at [facility] Right: Index Finger [employer] [id number] 01/14/2023 MCP-50 / / [id number] Procedures Procedure Name Priority Date/Time Associated Diagnosis Comments HI ARTHROCENTESIS ASPIR&/INJ SMALL JT/BURSA W/O US Routine 06/27/2024 11:20 AM ATOMIC WELDER Arthritis of carpometacarpal (CMC) joint of left thumb HI ARTHROCENTESIS ASPIR&/INJ SMALL JT/BURSA W/O US Routine 06/27/2024 11:20 AM ATOMIC WELDER Arthritis of carpometacarpal (CMC) joint of left thumb from Last 3 Months Results * HI ARTHROCENTESIS ASPIR&/INJ SMALL JT/BURSA W/O US (06/27/2024 11:20 AM ATOMIC WELDER) Narrative sIsa Montana MD - 06/27/2024 11:20 AM ATOMIC WELDER Issa Montana MD 06/27/2024 12:49 PM Small Joint Injection: L index MCP Performed by: Issa Montana MD Authorized by: Issa Montana MD Small Joint Injection/Aspiration: Consent Given by: Patient Timeout: prior to procedure the correct patient, procedure, and site was verified Verbal consent obtained?: Yes Supporting Documentation: Indications: Pain Procedure Details: Location: Index finger Site: L index MCP Approach: Dorsal Medications: 1 mL lidocaine 10 mg/mL (1 %); 40 mg methylPREDNISolone acetate 40 mg/mL Patient tolerance: Patient tolerated the procedure well with no immediate complications us Issa Montana MD IN CLINIC/BEDSIDE ORDERABLES Final Result * HI ARTHROCENTESIS ASPIR&/INJ SMALL JT/BURSA W/O US (06/27/2024 11:20 AM ATOMIC WELDER) Narrative Issa Montana MD - 06/27/2024 11:20 AM ATOMIC WELDER Isas Montana MD 06/27/2024 12:49 PM Small Joint Injection: L thumb CMC Performed by: Issa Montana MD Authorized by: Issa Montana MD Small Joint Injection/Aspiration: Consent Given by: Patient Timeout: prior to procedure the correct patient, procedure, and site was verified Verbal consent obtained?: Yes Supporting Documentation: Indications: Pain Procedure Details: Location: Thumb Site: L thumb CMC Approach: Dorsal Medications: 1 mL lidocaine 10 mg/mL (1 %); 40 mg methylPREDNISolone acetate 40 mg/mL Patient tolerance: Patient tolerated the procedure well with no immediate complications us Issa Montana MD IN CLINIC/BEDSIDE ORDERABLES Final Result from Last [address] [facility] [place]ICARE [place] [address] FORMERLY [facility] MEDICARE [employer] MEDICARE SUPPLEMENT Care Teams Athletic Instructor Relationship Specialty Start Date End Date Larry Morel MD PCP - General Family Medicine 12/05/19 Noam Horn MD [address] [place] [address] Referring Physician Endocrinology Diabetes & Metabolism 07/29/20 Hao Perez MD [address] [place] [address] Referring Physician Ophthalmology 07/29/20
--- OUTSIDE RECORDS SUMMARY | 2024-07-29 04:30 | XMS_ITS | Clinical Summary ---
Author Organization [facility] Address [address] [place] [id number] Phone Care Team Providers Care Validation Intern Name Role Phone Larry Morel MD Primary Care Provider [phone] Allergies No known active allergies Medications Medication Sig Dispensed Refills Start Date End Date Status atenolol (TENORMIN) 50 MG tablet Take 50 mg by mouth 1 (one) time each day 06/10/2021 Active celecoxib (CeleBREX) 200 MG capsule TAKE ONE CAPSULE BY MOUTH WITH FOOD NEEDED 04/28/2021 Active cyanocobalamin (VITAMIN B-12) 1000 MCG tablet Take by mouth daily 03/09/2020 Activ e fenofibrate micronized (LOFIBRA) 200 MG capsule 06/10/2021 Active gabapentin (NEURONTIN) 300 MG capsule Take 600 mg by mouth 1 (one) time each day 06/11/2021 Active hydroCHLOROthiazide (HYDRODIURIL) 25 MG tablet 06/10/2021 Active Lantus SoloStar 100 UNIT/ML injection 06/12/2021 Active HumaLOG KWIKPEN 100 UNIT/ML solution pen-injector 06/09/2021 Active TRUEplus 5-Bevel Pen [place] 31G X 8 MM misc USE FIVE TIMES DAILY DIRECTED 06/03/2021 Active levothyroxine (SYNTHROID) 175 MCG tablet TAKE 1 TABLET BY MOUTH ONCE A DAY IN THE MORNING ON AN EMPTY STOMACH 06/13/2021 Active Multiple Vitamin (multivitamin) capsule Take 1 capsule by mouth daily Active omeprazole (PriLOSEC) [address] capsule 06/12/2021 Active phenazopyridine (PYRIDIUM) 200 MG tablet 05/22/2021 Active potassium chloride (KLOR-CON) 10 MEQ CR tablet 06/10/2021 Active rosuvastatin (CRESTOR) 10 MG tablet 06/10/2021 Active Ozempic, 0.25 or 0.5 MG/DOSE, 2 MG/1.5ML solution pen-injector INJECT 0.5 MG UNDER THE SKIN ONCE A WEEK 04/07/2021 Active warfarin (COUMADIN) 1 MG tablet Take 1 mg by mouth 06/11/2021 Active warfarin (COUMADIN) 5 MG tablet Take 5 mg by mouth 06/09/2021 Active Vascepa 1 g capsule Take 2 capsules by mouth 2 (two) times a day 12/04/2021 Active metFORMIN XR 500 MG 24 hr tablet Take 1,000 mg by mouth 2 (two) times a day 11/24/2021 Active oxybutynin XL (DITROPAN-XL) 15 MG 24 hr tablet Take 15 mg by mouth 1 (one) time each day 10/10/2021 Active Active Problems Problem Noted Date Diagnosed Date Essential hypertension 06/16/2021 Calculus of kidney 06/16/2021 Chronic pain syndrome 03/25/2021 Family History Medical History Relation Comments Kidney stone Neg Hx Social History Tobacco Use Types Packs/Day Years Used Date Smoking Tobacco: Former Smokeless Tobacco: Never Alcohol Use Standard Drinks/Week Comments Yes 9 (1 standard drink = 0.6 oz pur e alcohol) Sex and Gender Information Value Date Recorded Sex Assigned at Not on file Gender Identity Not on file Sexual Orientation Not on file Last Filed Vital Signs Vital Sign Reading Time Taken Comments Blood Pressure 134/70 12/15/2021 1:49 PM CDT Pulse 72 12/15/2021 1:49 PM CDT Temperature 36.9 C (98.5 F) 12/15/2021 1:49 PM CDT Respiratory Rate - - Oxygen Saturation - - Inhaled Oxygen Concentration - - Weight 108 kg (238 lb) 12/15/2021 1:49 PM CDT Height 185.4 cm (6' 1 ) 12/15/2021 1:49 PM CDT Body Mass Index 31.4 12/15/2021 1:49 PM CDT Plan of Treatment Health Maintenance Due Date Last Done Comments Pneumococcal PPSV23/PCV13 65 + Years / Low and Medium Risk (1 of 4 - PCV) 2014 Influenza Vaccine (#1) 2024 Care Teams Validation Intern Relationship Specialty Start Date End Date Larry Morel MD [address] [place] [address] PCP - General Family Medicine 04/28/21
--- OUTSIDE RECORDS SUMMARY | 2024-07-29 04:30 | XMS_ITS | Clinical Summary ---
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 07/29/2020 Overview (07/29/2020): Added automatically from request for surgery [id number] Encounters Date Type Department Care Team Description 06/27/2024 11:20 AM FIELD SERVICE TECHNICIAN Office Visit [facility] Orthopaedic Surgery [address] [place] [address] [place] [address] Issa Montana MD Arthritis of carpometacarpal (CMC) joint of left thumb (Primary Dx); Arthritis, degenerative, localized, primary, hand, left from Last 3 Months Immunizations Immunization Administration Dates Next Due Influenza, Unspecified 02/06/2014 ZOSTER LIVE 04/18/2012 Surgical History Surgery Date Site/Laterality Comments LAMINECTOMY laminectomy CERVICAL FUSION cervical fusion OTHER SURGICAL HISTORY R meniscus repair OTHER SURGICAL HISTORY L total hip replacement EYE SURGERY Medical History Medical History Date Comments Hx Other Medical sciatica Calculus of kidney kidney stones Arthritis Arthritis Hyperlipidemia Hyperlipidemia Diabetes mellitus (HCC) Diabetes Hypertension Hypertension Disorder of thyroid Thyroid dise ase Hx Other Medical 2008 CVA (Stroke) Hx Other Medical 2002 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 Hx Other Medical Orbital decompr ession > 20 yrs ago Hx Other Medical 2003 LLE superficial venous thrombosis Hx Other Medical factor V Leiden mutation Hx Other Medical L hip bursitis Graves disease Motion sickness Factor V Leiden recurrent VTE, n ow on chronic AC w warfarin Family History Medical History Relation Name Comments Arthritis Father Family history of arthritis - (Added by TW Conv) Cancer Father Family history of malignant neoplasm - (Added by TW Conv) Arthritis Mother Family history of arthritis - (Added by TW Conv) Hypertension Mother Family history of hypertension - (Added by TW Conv) Anesthesia problems Neg Hx Relation Name Status Comments Father Mother Social History Tobacco Use Types Packs/Day Years [...] on file Legal Sex Male 10:29 AM FIELD SERVICE TECHNICIAN Gender Identity Not on file Sexual Orientation Not on file Obstetrics History Last Filed Vital Signs Vital Sign Reading Time Taken Comments Blood Pressure 150/80 04/08/2024 3:46 PM FIELD SERVICE TECHNICIAN Pulse 80 04/08/2024 3:46 PM FIELD SERVICE TECHNICIAN Temperature 36.8 C (98.2 F) 04/08/2024 3:46 PM FIELD SERVICE TECHNICIAN Respiratory Rate 20 04/08/2024 3:46 PM FIELD SERVICE TECHNICIAN Oxygen Saturation 99% 04/08/2024 3:46 PM FIELD SERVICE TECHNICIAN Inhaled Oxygen Concentration - - Weight 94.2 kg (207 lb 9.6 oz) 04/08/2024 3:46 P M FIELD SERVICE TECHNICIAN Height 185.4 cm (6' 1 ) 04/08/2024 3:46 PM FIELD SERVICE TECHNICIAN Body Mass Index 27.39 04/08/2024 3:46 PM FIELD SERVICE TECHNICIAN Plan of Treatment Health Maintenance Due Date Last Done Comments Colon Cancer Screening-Colonoscopy 1949 Depression Screening 1949 Hepatitis C Screening 1949 DTaP/Tdap/Td Vaccine (1 - Tdap) 1960 Hepatitis B Screening 1967 Pneumococcal vaccine 65+ (1 of 1 - PCV) 1999 Zoster Vaccine (2 of 3) 06/13/2012 04/18/2012 Abdominal Aortic Aneurysm (AAA) Screen 2014 Well Visit 65+ 2014 Fall Risk Assessment 08/14/2021 08/14/2020 Influenza Vaccine (#1) 2024 02/06/2014 Medical Devices Implanted Type Area Track Sweeper Device Identifier Shelf Expiration Date Model / Serial / Lot [employer] Ar-8978-Cp Internalbrace Kit Hand Wrist Set Implant Ligament Augmentation - [id number] Implanted:Qty: 1 on 08/14/2020 by Issa Montana MD at [facility] Right: Thumb [employer] [id number] 06/16/2025 AR-8978-C P / / [id number] Small Bone Innovations Mcp-50 Mcp 50 Joint Finger Silicone Ii Sterile Latex Free - [id number] Implanted:Qty: 1 on 08/14/2020 by Issa Montana MD at [facility] Right: Index Finger [employer] [id number] 01/14/2023 MCP-50 / / [id number] Procedures Procedure Name Priority Date/Time Associated Diagnosis Comments SC ARTHROCENTESIS ASPIR&/INJ SMALL JT/BURSA W/O US Routine 06/27/2024 11:20 AM FIELD SERVICE TECHNICIAN Arthritis of carpometacarpal (CMC) joint of left thumb SC ARTHROCENTESIS ASPIR&/INJ SMALL JT/BURSA W/O US Routine 06/27/2024 11:20 AM FIELD SERVICE TECHNICIAN Arthritis of carpometacarpal (CMC) joint of left thumb from Last 3 Months Results * SC ARTHROCENTESIS ASPIR&/INJ SMALL JT/BURSA W/O US (06/27/2024 11:20 AM FIELD SERVICE TECHNICIAN) Narrative Issa Montana MD - 06/27/2024 11:20 AM FIELD SERVICE TECHNICIAN Issa Montana MD 06/27/2024 12:49 PM Small Joint Injection: L index MCP Performed by: Issa oMntana MD Authorized by: Issa Montana MD Small [...] MD IN CLINIC/BEDSIDE ORDERABLES Final Result * SC ARTHROCENTESIS ASPIR&/INJ SMALL JT/BURSA W/O US (06/27/2024 11:20 AM FIELD SERVICE TECHNICIAN) Issa Martinez MD - 06/27/2024 11:20 AM Issa Webster MD 06/27/2024 12:49 PM Small Joint Injection: [...] Result from Last 3 Months Insurance MEDICARE [facility] MEDICARE SUPPLEMENT MEDICARE [facility] MEDICARE BLUE CROSS MEDICARE SUPPLEMENT Care Teams Event Technician Relationship Specialty Start Date End Date Larry Morel MD PCP - General Family Medicine 12/05/19 Noam Horn MD [address] [place] [address] Referring Physician Endocrinology Diabetes & Metabolism 07/29/20 Hao Perez MD [address] [place] [address] Referring Physician Ophthalmology 07/29/20
--- OUTSIDE RECORDS SUMMARY | 2024-07-29 04:30 | XMS_ITS | Patient Health Record ---
Author Organization [facility] Address [address] [place] [address] Care Team Providers Care Application Project Leader Name Role Phone Aniceto Ramirez Unavailable [phone] REASON FOR REFERRAL No Information MEDICATIONS Medication SIG (Take, Route, Frequency, Duration) Notes Start Date End Date Status hydroCHLOROthiazide 25 MG Oral for 90 Active Warfarin Sodium 6 MG Oral for 90 Active Celecoxib 200 MG Oral for 90 A ctive Potassium Chloride ER 10 MEQ Oral for 90 Active traMADol HCl 50 MG 2 tablets Orally TID as needed for pain; DO NOT EXCEED 6 TABS PER DAY for 30 days 02/09/2019 Active Brady 5-325 MG 1 tablet Orally q 6- 8 hours PRN POST-procedural pain for 12 days 12/07/2019 Active Lantus SoloStar 100 UNIT/ML Subcutaneous for 90 Active Levothyroxine Sodium 175 MCG Oral for 90 Active Omeprazole 20 MG Oral for 90 A ctive Atenolol 50 MG Oral for 90 Act kofi metFORMIN HCl ER 500 MG Oral for 90 Active HumaLOG KwikPen 100 UNIT/ML Subcutaneous for 90 Active Rosuvastatin Calcium 10 MG Oral for 90 Active Fenofibrate 200 MG Oral for 90 Active Gabapentin 300 MG Oral for 90 Active PROBLEMS Problem Type ICD Code Onset Dates Problem Status W/U Status Risk SNOMED Code Notes Problem Chronic pain syndrome (G89.4) Active confirmed 097372062 Problem Spinal enthesopathy, 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) Active confirmed 48216128 Problem Spondylosis of lumbosacral region without myelopathy or radiculopathy (M47.817) Active confirmed 07574684 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 [id number] PLAN OF TREATMENT No Information Insurance Providers Payer Name Payer Address Payer Phone Subscriber Number Group Number Insured Name Patient Relationship to Insured Coverage Start Date Coverage End Date MEDICARE SERVICES [address] [address] [place], [place] [id number] null, null Self - patient is the insured MEDICATIONS ADMINISTERED Medication Instructions Date of Administration Dosage Notes Bilateral L3-S1 MBPR (lumbar facet) RF Denervation with fluoroscopy 12/07/2019 Bilateral L4/5 and L5/S1 Fac et Joint Injections with Fluoroscopy 02/09/2019 Bilateral L4/5 and L5/S1 Fac et Joint Injections with Fluoroscopy 08/03/2019 Trigger Point Injection 12/21/2018
--- OUTSIDE RECORDS SUMMARY | 2024-07-29 04:30 | XMS_ITS | Clinical Summary ---
Author Organization [facility] Address [address] [place] [address] Care Team Providers Care Contact Worker Name Role Phone Pantera Bolivar MD Primary Care Provider [phone] Allergies No known active allergies Medications tadalafil (CIALIS) 5 mg tablet TAKE 1 TABLET BY MOUTH NO MORE THAN ONCE EVERY 3 DAYS. MAY INCREASE TO 2 TABLET IF NEEDED. THEN MAY INCREASE TO 4 TABLET 30 Tablet 9 Active Eliquis 5 mg tablet Take 5 mg by mouth 2 times daily. Active atenoloL (TENORMIN) 50 mg tablet Take 50 mg by mouth daily. 2 Active celecoxib (CeleBREX) 200 mg capsule Take 200 mg by mouth daily. 1 Active fenofibrate micronized (LOFIBRA) 200 mg Capsule Take 1 Capsule by mouth daily. 2 Active gabapentin (NEURONTIN) 300 mg capsule Take 300 mg by mouth. 2 Active Lantus Solostar U-100 Insulin 100 unit/mL (3 mL) solution for injection Inject 45 Units by subcutaneous injection. 2 Active insulin lispro (HumaLOG,ADMELO G) 100 unit/mL pen syringe Inject by subcutaneous injection. 2 Active omeprazole (PriLOSEC) 20 mg Capsule, Delayed Release(E.C.) Take 20 mg by mouth daily. 2 Active potassium chloride (KLOR-CON) 10 mEq Extended Release tablet 2 Active rosuvastatin (CRESTOR) 10 mg tablet Take 10 mg by mouth. 2 Active semaglutide (Ozempic) 1 mg/dose (4 mg/3 mL) Pen Injector Inject 1 mg by subcutaneous injection every 7 days. 4 Active ondansetron (ZOFRAN ODT) 8 mg Tablet, Rapid Dissolve Dissolve 1 tablet on top of tongue then swallow with saliva every 8 hours as needed for nausea or vomiting 30 Tablet 1 4 Active lidocaine-prilo ceci (EMLA) 2.5-2.5 % Cream Apply a quarter size amount 30 minutes piror to port access. 30 Gram 1 4 Active hydrOXYzine HCL (ATARAX) 25 mg tablet Take 1 Tablet (25 mg) by mouth 3 times daily as needed for Itching. 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 Abstract [facility] Hematology [facility] [address] [place] [address] Mikael Gomes MD 07/11/2024 9:30 AM COFFEE ROASTER HELPER Office Visit [facility] On[facility] Hematology [facility] [address] [place] [address] Mikael Gomes MD Carcinoma in situ of bladder (Primary Dx) 07/11/2024 External Device Data STL ABSTRACTION Provider, Abstract 07/10/2024 Orders Only [facility] On[facility] Hematology [facility] [address] [place] [address] Mikael Gomes MD Carcinoma in situ of bladder 07/05/2024 External Device Data STL ABSTRACTION Provider, Abstract 06/26/2024 Orders Only [facility] Oncology and Hematology - [place] [address] [place] [address] Mikael Gomes MD Carcinoma in situ of bladder 06/12/2024 Orders Only [facility] Oncology and Hematology - [place] [address] [place] [phone] Mikael Gomes MD Carcinoma in situ of bladder 06/07/2024 External Device Data STL ABSTRACTION Provider, Abstract 06/06/2024 External Device Data STL ABSTRACTION Provider, Abstract 05/30/2024 11:00 AM COFFEE ROASTER HELPER Office Visit [facility] Oncology and Hematology - [place] [address] [place] [address] Mikael Gomes MD Carcinoma in situ of bladder (Primary Dx) 05/30/2024 External Device Data STL ABSTRACTION Provider, Abstract 05/30/2024 Orders Only [facility] Oncology and Hematology - [place] [address] [place] [address] Mikael Gomes MD 05/29/2024 Orders Only [facility] On[facility] and Hematology - [place] [address] [place] [address] Mikael Gomes MD Carcinoma in situ of bladder 05/15/2024 Orders Only [facility] Oncology and Hematology - [place] [address] [place] [address] Mikael Gomes MD Carcinoma in situ of bladder 05/12/2024 Orders Only [facility] On[facility] and Hematology - [place] [address] [place] [address] Mikael Gomes MD 05/08/2024 10:00 AM COFFEE ROASTER HELPER Office Visit [facility] Oncology and Hematology - [place] [address] [place] [address] Radha Moreno MD Carcinoma in situ of bladder (Primary Dx) 05/08/2024 Orders Only [facility] Oncology and Hematology - [place] [address] [place] [address] Mikael Gomes MD Carcinoma in situ of bladder (Primary Dx); Need for hepatitis B screening test 05/01/2024 Orders Only [facility] Oncology and Hematology [facility] [address] [place] [address] Mikael Gomes MD Carcinoma in situ of bladder from Last 3 Months Family History Medical History Relation Name Comments No Known Problems Brother 1 No Known Problems Brother 2 Cancer Father Hypertension Mother No Known Problems Sister Relation Name Status Comments Brother 1 Brother 2 Alive Father Mother Sister Alive Social History Tobacco Use Types Packs/Day Years Used Date Smoking Tobacco: Former Cigarettes 2 10 Q uit: 02/16/1989 Tobacco Cessation:Counseling Given: Not Answered Alcohol Use Standard Drinks/Week Comments Yes 0 (1 standard drink = 0.6 oz pur e alcohol) occasionally Sex and Gender Information Value Date Recorded Sex Assigned at Not on file Legal Sex Male 3:22 AM COFFEE ROASTER HELPER Gender Identity Not on file Sexual Orientation Not on file Last Filed Vital Signs Vital Sign Reading Time Taken Comments Blood Pressure 133/73 07/11/2024 9:15 AM COFFEE ROASTER HELPER Pulse 66 07/11/2024 9:15 AM COFFEE ROASTER HELPER Temperature 36.1 C (96.9 F) 07/11/2024 9:15 AM COFFEE ROASTER HELPER Respiratory Rate 15 07/11/2024 9:15 AM COFFEE ROASTER HELPER Oxygen Saturation 96% 07/11/2024 9:15 AM COFFEE ROASTER HELPER Inhaled Oxygen Concentration - - Weight 94.8 kg (209 lb) 07/11/2024 9:15 AM COFFEE ROASTER HELPER Height 185.4 cm (6' 1 ) 02/17/2024 3:14 PM CDT Body Mass Index 27.57 02/17/2024 3:14 PM CDT Plan of Treatment Upcoming Encounters Date Type Department Care Team (Late st Contact Info) Description 08/22/2024 9:45 AM CDT Office Visit [facility] Oncology and Hematology [facility] [address] [place] [address] Mikael Gomes MD [facility] [place] [address] Health Maintenance Due Date Last Done Comments DTAP/TDAP/TD VACCINES (1 - Tdap) 1968 Traditional Medicare (ACO) Annual Wellness Visit 04/02 COLORECTAL SCREENING 1994 Colorectal Cancer Screening 1994 FIT-DNA Q 3 years 1994 FIT/FOBT Q 1 year 1994 Flex Sig/CT Colonography Q 5 years 1994 PNEUMOCOCCAL VACCINE 50+ YEARS (1 of 1 - PCV) 04/02/19 99 ZOSTER VACCINE (2 of 3) 06/13/2012 04/18/2012 Abdominal Aortic Aneurysm (AAA) Screening 2014 INFLUENZA VACCINE (#1) 2023 RSV VACCINE (60+ or ) (1 - 1-dose 75+ series) 2024 Procedures Procedure Name Priority Date/Time Associated Diagnosis Comments BASIC METABOLIC PANEL Routine 07/11/2024 4:23 PM COFFEE ROASTER HELPER COMPREHENSIVE METABOLIC PANEL Routine 07/11/2024 4:15 PM COFFEE ROASTER HELPER CBC WITH DIFFERENTIAL Routine 07/11/2024 2:25 PM COFFEE ROASTER HELPER BASIC METABOLIC PANEL Routine 05/30/2024 3:27 PM COFFEE ROASTER HELPER COMPREHENSIVE METABOLIC PANEL Routine 05/30/2024 3:20 PM COFFEE ROASTER HELPER CBC WITH DIFFERENTIAL Routine 05/30/2024 1:41 PM COFFEE ROASTER HELPER BASIC METABOLIC PANEL Routine 05/08/2024 3:29 PM COFFEE ROASTER HELPER CBC WITH DIFFERENTIAL Routine 05/08/2024 3:24 PM COFFEE ROASTER HELPER COMPREHENSIVE METABOLIC PANEL Routine 05/08/2024 9:32 AM COFFEE ROASTER HELPER from Last 3 Months Results * BASIC METABOLIC PANEL (07/11/2024 4:23 PM COFFEE ROASTER HELPER) Only the most recent of3 resultswithin the time period is included. Blood us Mikael Gomes MD CHEMISTRY ORDERABLES Final Resu lt * COMPREHENSIVE METABOLIC PANEL (07/11/2024 4:15 PM COFFEE ROASTER HELPER) Only the most recent of3 resultswithin the time period is included. Blood us Mikael Gomes MD CHEMISTRY ORDERABLES Final Resu lt * CBC WITH DIFFERENTIAL (07/11/2024 2:25 PM COFFEE ROASTER HELPER) Only the most recent of3 resultswithin the time period is included. Blood Mikael Gomes MD HEMATOLOGY ORDERABLES Final Res ult from Last 3 Months Insurance [employer] [address] [place] [id number] Care Teams Contact Worker Relationship Specialty Start Date End Date Pantera Bolivar MD [address] [place] [phone] PCP - General 05/02/15
--- OUTSIDE RECORDS SUMMARY | 2024-07-29 04:30 | XMS_ITS | Encounter Summary ---
Author Organization [facility] Address [address] [place] [address] Care Team Providers Care Release Engineer Name Role Phone Pantera Bolivar MD Primary Care Provider [phone] Encounter Details Date Type Department Care Team (Late Contact Info) Description 07/25/2024 Orders Only [facility] Oncology and [facility] [address] [place] [address] Mikael Gomes MD [address] [place], [place] [address] [address] [place] [address] Social History Tobacco Use Types Packs/Day Years Used Date Smoking Tobacco: Former Cigarettes 2 10 Q uit: 02/16/1989 Alcohol Use Standard Drinks/Week Comments Yes 0 (1 standard drink = 0.6 oz pur e alcohol) occasionally Sex and Gender Information Value Date Recorded Sex Assigned at Not on file Legal Sex Male 3:22 AM 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 Gender Identity Not on file Sexual Orientation Not on file documented as of this encounter Plan of Treatment Upcoming Encounters Date Type Department Care Team (Late st Contact Info) Description 08/22/2024 9:45 AM CDT Office Visit [facility] Oncology and Hematology [facility] [address] [place] [address] Mikael Gomes MD [address] [place], [place] [address] [address] [place] [address] documented as of this encounter Procedures Procedure Name Priority Date/Time Associated Diagnosis Comments COMPREHENSIVE METABOLIC PANEL Routine 07/11/2024 4:15 PM 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 documented in this encounter Results * COMPREHENSIVE METABOLIC PANEL (07/11/2024 4:15 PM 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) Blood Mikael Gomes MD CHEMISTRY ORDERABLES Final Resu lt documented in this encounter Visit Diagnoses Not on filedocumented in this encounter Care Teams Release Engineer Relationship Specialty Start Date End Date Pantera Bolivar MD [address] [place] [phone] PCP - General 05/02/15 documented as of this encounter
--- OUTSIDE RECORDS SUMMARY | 2024-07-29 04:30 | XMS_ITS | Encounter Summary ---
Author Organization [facility] Address 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 Gender Identity Not on file Sexual Orientation Not on file documented as of this encounter Plan of Treatment Upcoming Encounters Date Type Department Care Team (Late st Contact Info) Description 08/22/2024 9:45 AM CDT Office Visit [facility] Oncology and Hematology - [place] [address] [place] [address] [facility] [address] [place] [address] Mikael Gomes MD [address] [facility] [address] [place] [address] documented as of this encounter Procedures Procedure Name Priority Date/Time Associated Diagnosis Comments POC CREATININE Routine 09/02/2007 7:18 AM CDT documented in this encounter Results * POC CREATININE (09/02/2007 7:18 AM CDT) CREATININE POC 1.0 0.6 - 1.3 mg/dL [facility] Capillary blood specimen (specimen) 09/02/2007 7:18 AM CDT 09/02/2007 7:18 AM CDT us Aniceto Ramirez DO POINT OF CARE TESTING Final R esult [facility] [address] [place] [address] documented in this encounter Visit Diagnoses Diagnosis Backache, unspecified documented in this encounter Care Teams Precinct Commanding Officer Relationship Specialty Start Date End Date Pantera Bolivar MD [address] [facility] [address] [place] [address] PCP - General 05/02/15 documented as of this encounter
--- OUTSIDE RECORDS SUMMARY | 2024-07-29 04:30 | XMS_ITS | Continuity of Care Document ---
Author Organization [facility] Address [address] [place] [address] Phone Care Team Providers Care Egg Packer Name Role Phone Moser OD, Oswaldo Unavailable Unavailable Procedures Procedure Date Eye Exam & Treatment Refraction Eye Exam & Treatment Refraction Eye Exam & Treatment Office/outpatient Visit, Est Office/outpatient Visit, Est Frames Deluxe [facility] - Medical No Charge Glasses Check Progressive Lens, Plastic [facility] Pathways - Medical Post-op Follow-up Visit Refraction Remove Cataract, Insert Lens Limbal Relaxing Incision Post-op Follow-up Visit Post-op Follow-up Visit [facility] Post-op Follow-up Visit Remove Cataract, Insert Lens Limbal Relaxing Incision Office/outpatient Visit, Est [facility] Eye Exam & Treatment Office/outpatient Visit, Est Eye Exam Established Pt Advance Directives Directive Yes / No Effective Date File Name No Information Encounters Encounter Description Practice Location Reason(s) For Visit Diagnoses Date Provider Providers Copied on Encounter [facility], [address], [place], [place], [id number], [place] tel:[phone] [facility] No Information Sep-0 9-201 0 Moser OD Oswaldo. [address] , [address], [place], [place], [facility], . tel:[phone] Referring Provider: Pantera Bolivar MD, [address] [facility] [address], [place], [address]. tel:[phone] [facility], [address] [place] [address] [address], [place], [place], [id number], tel:[phone] [facility] No Information 2 1-200 9 Moser OD Oswaldo. [address] [facility] , [address], [place], [place], [facility], . tel:[phone] Referring Provider: Pantera Bolivar MD, [address] [facility] [address], [place], [address]. tel:[phone] [facility], [address] [place] [address] [address], [place], [place], [id number], [place] tel:[phone] [facility] No Information 4-200 8 Moser OD Oswaldo. [address] , [address], [place], [place], [facility], . tel:[phone] Office/outpat ient Visit, [facility], [address] [place] [address] [address], [place], [place], [id number], [place] tel:[phone] [facility] No Information 2 1-200 8 Moser OD Oswaldo. [address] , [address], [place], [facility], . tel:[phone] Office/outpat ient Visit, [facility], [address] [place] [address] [address], [place], [place], [id number], [place] tel:[phone] [facility] No Information 4-200 8 Moser OD Oswaldo. [address] , [address], [place], [address], [place]. tel:[phone] [facility], [address], [place], [place], [address], [place] tel:[phone] [facility] No Information Nov-2 7-200 7 [employer] . [address] [facility], [address], [place], [place], [address], [place]. tel:[phone] Consulting Provider: Uzma Larsen, [address] [place] [address], [facility]. tel:[phone] [facility], [address], [place], [place], [address], [place] tel:[phone] [facility] No Information Nov-0 1-200 7 Moser OD Oswaldo. [address] [facility] [address], [address], [place], [facility], [place]. tel:[phone] [facility], [address], [place], [place], [address], [place] tel:[phone] [facility] No Information Oct-0 9-200 7 [employer] . [address] [facility], [address], [place], [place], [address], [place]. tel:[phone] Referring Provider: Sherwin Rubi, [address] [place], [place] [address]ate [address], [place], [facility]. tel:[phone] lting Provider: Uzma Larsen, [address] [place] [address], [address]. tel:[phone] [facility], [address], [place], [place], [address], [place] tel:[phone] [facility] No Information Oct-0 5-200 7 Lucio Courtney. [facility] to [facility] [address], [address], [place], [facility], [place]. tel:[phone] [facility], [address], [place], [place], [id number], [place] tel:[phone] [facility] No Information Sep-2 1-200 7 Doisy Edward. [address] , [address], [place], [facility], . tel:[phone] [facility], [address] [place] [address] [address], [place], [place], [address], [place] tel:[phone] [facility] No Information Sep-2 1-200 7 Doisy Edward. [address] , [address], [place], [facility], [place]. tel:[phone] [facility], [address], [place], [place], [address], [place] tel:[phone] [facility] No Information Sep-1 9-200 7 Doisy Edward. [address] , [address], [place], [facility], [place]. tel:[phone] Referring Provider: Oswaldo Rubi, [facility] [address], [place], [facility]. tel:[phone] [facility], [address], [place], [place], [address], [place] tel:[phone] [facility] No Information Sep-1 2-200 7 Doisy Edward. [address] , [address], [place], [facility], [place]. tel:[phone] [facility], [address], [place], [place], [address], [place] tel:[phone] [facility] No Information Sep-1 1-200 7 Doisy Edward. [address] , [address], [place], [facility], [place]. tel:[phone] Referring Provider: Oswaldo Moser OD A, [address], [place], [address]. tel:[phone] Office/outpat ient Visit, [facility], [address], [place], [place], [address], [place] tel:[phone] [facility] No Information Sep-0 5-200 7 Lucio Courtney. [address] , [address], [place], [facility], [place]. tel:[phone] Referring Provider: Sherwin Rubi, [address], [place], [facility]. tel:[phone] [facility], [address] [place] [address] [address], [place], [place], [address], [place] tel:[phone] [facility] No Information Aug-2 3-200 7 Moser OD Oswaldo. [address] [facility] , [address], [place], [facility], [place]. tel:[phone] Referring Provider: Pantera Bolivar MD, [address] [facility] [address], [place], [address]. tel:[phone] Office/outpat ient Visit, [facility], [address] [place] [address] [address], [place], [place], [address], [place] tel:[phone] [facility] No Information Apr-0 2-200 7 Wanjonathan Levy. [address] [facility], [address], [place], [place], [address], [place]. tel:[phone] [facility], [address] [place] [address] [address], [place], [place], [address], [place] tel:[phone] [facility] No Information Jay-0 9-200 7 Moser OD Oswaldo. [address] [facility] [address], [address], [place], [address], [place]. tel:[phone] Family History Family Member Type Diagnosis Age At Onset No Information Payers Payer name Insurance type Covered constitution party ID Authoriza tion(s) No Information Social History Type Description Quantity Date Captured Comments Sex Male Smoking Status No Information Chief Complaint And Reason For Visit No Information Reason For Referral Reason For Referral No Information History Of Present Illness Encounter Date Complaint History Of Prese nt Illness No Information Functional Status Date Functional Assessmen t No Information Instructions Date Instruction Additional Infor mation No Information Assessments Type Assessment Date No Information Patient Care Teams Name Effective Dates (start - stop) Status Members No Information
--- OUTSIDE RECORDS SUMMARY | 2024-07-29 04:30 | XMS_ITS | Clinical Summary ---
Author Organization [facility] [place] [facility] Address [address] [place] [address] Care Team Providers Care Cyber Special Agent Name Role Phone Larry Morel MD Primary Care Provider [phone] Emeli Allison MD Unavailable [phone] Issa Montana MD Unavailable [phone] Shamar Freire DO Unavailable Allergies No known active allergies Medications traMADol (ULTRAM) 50 MG tablet Take 1 tablet (50 mg total) by mouth every 6 (six) hours as needed for Pain. 4 Active gabapentin (NEURONTIN) 300 MG capsule Take 1 capsule (300 mg total) by mouth 2 (two) times a day. 4 Active Multiple Vitamin (MULTIVITAMIN) capsule Take 1 capsule by mouth daily. Active semaglutide (OZEMPIC) 1 mg/dose injection (PEN) Inject 1 mg into the skin once a week. Takes on Wednesday 4 Active atenolol (TENORMIN) 50 MG tablet Take 1 tablet (50 mg total) by mouth daily. Active rosuvastatin (CRESTOR) 10 MG tablet Take 1 tablet (10 mg total) by mouth nightly at bedtime. Active Fenofibrate 200 MG Cap Take 1 capsule by mouth daily. Active celecoxib (CELEBREX) 200 MG capsule Take 1 capsule (200 mg total) by mouth daily. Active omeprazole (PRILOSEC) 20 MG capsule Take 1 capsule (20 mg total) by mouth daily. Active insulin glargine (LANTUS SOLOSTAR) 100 UNIT/ML injection (PEN) Inject 80 Units into the skin nightly at bedtime. Active insulin glargine (LANTUS SOLOSTAR) 100 UNIT/ML injection (PEN) Inject 45 Units into the skin every morning. Active insulin lispro, 1 Unit Dial, (HUMALOG) 100 UNIT/ML injection (PEN) Inject into the skin see administration instructions. Sliding scale Active apixaban (ELIQUIS) 5 MG tablet Take 1 tablet (5 mg total) by mouth 2 (two) times daily. Active levothyroxine (SYNTHROID) 175 MCG tablet Take 1 tablet (175 mcg total) by mouth every morning. Active metFORMIN ER (GLUCOPHAGE-XR ) 500 MG 24 hr tablet Take 2 tablets (1,000 mg total) by mouth 2 (two) times daily. Active Social History Tobacco Use Types Packs/Day Years Used Date Smoking Tobacco: Former Cigarettes 2 1980 Smokeless Tobacco: Never Tobacco Cessation:Counseling Given: Not Answered Alcohol Use Standard Drinks/Week Comments Yes 1.7 (1 standard drink = 0.6 oz p ure alcohol) Sex and Gender Information Value Date Recorded Sex Assigned at Not on file Legal Sex Male 10:00 AM CDT Gender Identity Not on file Sexual Orientation Not on file Last Filed Vital Signs Vital Sign Reading Time Taken Comments Blood Pressure 181/73 01/06/2024 12:13 PM CDT Pulse 55 01/06/2024 12:13 PM CDT Temperature 36.8 C (98.2 F) 01/06/2024 12:13 PM CDT Respiratory Rate 18 01/06/2024 12:13 PM CDT Oxygen Saturation 100% 01/06/2024 12:13 PM CDT Inhaled Oxygen Concentration - - Weight 94 kg (207 lb 3.7 oz) 01/06/2024 9:00 AM CDT Height 185.4 cm (6' 1 ) 01/06/2024 9:00 AM CDT Body Mass Index 27.34 01/06/2024 9:00 AM CDT Plan of Treatment Health Maintenance Due Date Last Done Comments Colorectal Cancer Screening Colonoscopy (10 Years) 1950 Hepatitis C 1967 DTaP, Tdap and Td Vaccines ( 1 - Tdap) 1968 Zoster Vaccines (2 of 3) 06/13/2012 04/18/2012 Annual Medicare Wellness Visit 2014 Pneumococcal Vaccine: 65+ Ye ars (1 of 1 - PCV) 2014 COVID-19 Vaccine (1 - 2023-2 5 season) 2024 Influenza Adult (#1) 2024 02/06/2014 RSV Immunization or 60+ Years (1 - 1-dose 75+ series) 2024 AAA SCREENING Completed 10/21/2021 Meningococcal B Vaccine Aged Out No l onger eligible based on patient's age to complete this topic Meningococcal Vaccine Aged Out No kassandra mara eligible based on patient's age to complete this topic RSV Immunizations Under 20 Months Aged Out No longer eligible based on patient's age to complete this topic Insurance MEDICARE [facility] Care Teams Cyber Special Agent Relationship Specialty Start Date End Date Larry Moerl MD [address] [address] PCP - General FAMILY PRACTICE 09/23/23 Emeli Allison MD [address] [facility] [place] [address] Physician NEUROLOGICAL SURGERY 09/23/23 Issa Montana MD [address] [facility] [address] HAND SURGERY 09/23/23 Shamar Freire DO [address] [facility] [address] [place] [address] CARDIOLOGY 09/23/23
--- OUTSIDE RECORDS SUMMARY | 2024-07-29 04:30 | XMS_ITS | Encounter Summary ---
Author Organization [facility] Address [address] [place] [address] Care Team Providers Care Flow Specialist Name Role Phone Pantera Bolivar MD Primary Care Provider [phone] Encounter Details Date Type Department Care Team (Late st Contact Info) Description 09/14/2000 Outpatient [facility] [address] [facility] 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 [address] [place] [address] documented as of this encounter Visit Diagnoses Not on filedocumented in this encounter Care Teams Flow Specialist Relationship Specialty Start Date End Date Pantera Bolivar MD [address] [place] [address] [address] [place] [address] PCP - General 05/02/15 documented as of this encounter
--- OUTSIDE RECORDS SUMMARY | 2024-07-29 04:30 | XMS_ITS | Encounter Summary ---
Author Organization [facility] Address 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 Gender Identity Not on file Sexual Orientation Not on file documented as of this encounter Plan of Treatment Upcoming Encounters Date Type Department Care Team (Late st Contact Info) Description 08/22/2024 9:45 AM CDT Office Visit [facility] Oncology and Hematology - [place] [address] [place] [address] [facility] [address] [place] [address] Mikael Gomes MD [address] [facility] [address] [place] [address] documented as of this encounter Procedures Procedure Name Priority Date/Time Associated Diagnosis Comments MRI LUMBAR W WO CONTRAST Timed Study 09/20/2007 9:13 AM CDT documented in this encounter Results * MRI LUMBAR W WO CONTRAST (09/20/2007 9:13 AM CDT) Anatomical Region Laterality Modality Spine Other 09/20/2007 9:13 AM CDT Narrative 09/20/2007 12:10 PM CDT [facility] [address], [place] [address] Admit Date: 09/20/2007 GIL PÉREZ Sex: M Admit Prov: ANICETO RAMIREZ Date: 1950 Primary Care Prov: REBEKAH WOODS CMRN: [id number] Room: [facility] N: [id number] IMAGING SERVICES Ordering Prov: N/A Accession Number: [id number] Interpretation MRI LUMBAR SPINE WITHOUT AND WITH IV CONTRAST 09/20/07 History: Bilateral leg pain and numbness, prior L5-S1 surgery in 1995. Lumbar sequences were performed, but are somewhat motion degraded and limited as the patient repositioned between each sequence and therefore, cross reference images are possibly inaccurate. Left hemilaminotomy changes are seen at L5-S1. The conus tip is unremarkable at the T12-L1 disc space level. No lateralizing disc protrusion is seen, but the thecal sac becomes small beginning at the L4 level, suggestive of a congenitally small canal. L3-L4: There is question of a left foraminal and lateral disc protrusion causing inferior left neural foraminal narrowing. Thecal sac is borderline small in caliber. There is no right neural foraminal narrowing. L4-L5: There is a central disc protrusion mildly effacing the ventral thecal sac. Facet degeneration and some ligamentous hypertrophy are present, as well as the congenitally small canal, contributing to moderate canal stenosis. There is no neural foraminal narrowing seen. L5-S1: There is circumferential disc bulge/protrusion, as well as prominent facet degeneration, and disc and endplate changes causing moderate to severe left neural foraminal narrowing. The right neural foramen is patent. The thecal sac is extremely small in caliber and there is obscuration of the left S1 nerve roots at the disc space level. There is no appreciable abnormal enhancement seen however. IMPRESSION: Very small caliber of the thecal sac at L4-L5 and L5-S1, with possible compromise of the left L5 and S1 nerve roots. . Dictated by: CEE PRUETT 09/20/2007 11:00 Electronically signed by: CEE PRUETT 09/20/2007 12:10 Transcribed: 09/20/2007 11:11 Procedure Note Cee Pruett - 09/20/2007 [facility] [address] [place], [place] [address] Admit Date: 09/20/2007 GIL PÉREZ Sex: M Admit Prov: ANICETO RAMIREZ Date:1950 Primary Care Prov: REBEKAH WOODS CMRN: [id number] Room: MRI-A SSN: [id number] IMAGING SERVICES Ordering Prov: N/A Interpretation MRI LUMBAR SPINE WITHOUT AND WITH IV CONTRAST 09/20/07 History: Bilateral leg pain and numbness, prior L5-S1 surgery [id number]. Lumbar sequences were performed, but are somewhat motion degradedand limited as the patient repositioned between each sequence andtherefore, cross reference images are possibly inaccurate. Left hemilaminotomychanges are seen at L5-S1. The conus tip is unremarkable at the T12-L1 discspace level. No lateralizing disc protrusion is seen, but the thecal sacbecomes small beginning at the L4 level, suggestive of a congenitally smallcanal. L3-L4: There is question of a left foraminal and lateral discprotrusion causing inferior left neural foraminal narrowing. Thecal sac isborderline small in caliber. There is no right neural foraminal narrowing. L4-L5: There is a central disc protrusion mildly effacing theventral thecal sac. Facet degeneration and some ligamentous hypertrophy are present, as well as the congenitally small canal, contributing tomoderate canal stenosis. There is no neural foraminal narrowing seen. L5-S1: There is circumferential disc bulge/protrusion, as well asprominent facet degeneration, and disc and endplate changes causing moderateto severe left neural foraminal narrowing. The right neural foramen ispatent. The thecal sac is extremely small in caliber and there is obscurationof the left S1 nerve roots at the disc space level. There is noappreciable abnormal enhancement seen however. IMPRESSION: Very small caliber of the thecal sac at L4-L5 and L5-S1, withpossible compromise of the left L5 and S1 nerve roots. . Dictated by: CEE PRUETT 09/20/2007 11:00 Electronically signed by: CEE PRUETT 09/20/2007 12:10 Transcribed: 09/20/2007 11:11 Aniceto H James CAMARILLO MR ORDERABLES Final Result documented in this encounter Visit Diagnoses Diagnosis Backache, unspecified documented in this encounter Care Teams Survey Rodman Relationship Specialty Start Date End Date Rebekah Woods MD [address] [place] [address] [phone] PCP - General 05/02/15 documented as of this encounter
--- NOTE | 2024-07-29 04:39 | ECG_ITS ---
Test Date: 2024-07-29 06:06:34 Measurements Intervals [place] Rate: 76 P: 62 [place]: 193 QRS: 78 QRSD: 96 T: 41 QT: 368 QTc: 416 Interpretive Statements SINUS RHYTHM No previous ECG available for comparison Electronically Signed On 07-30-2024 13:55:17 CDT by Abhi Dennis D.O
--- NOTE | 2024-07-29 04:39 | ED_ITS ---
HPI - General Adult General Chief complaint: Unspecified <Velasquez Busch MD - Last Filed: 07/29/24 06:33> Stated complaint: low blood sugar <Velasquez Busch MD - Last Filed: 07/29/24 06:33> Time Seen by Provider: 07/29/24 03:46 <Velasquez Busch MD - Last Filed: 07/29/24 06:33> History of Present Illness HPI narrative: This is a 74-year-old male presenting to the ED with chief complaint of low blood sugar. The patient had gotten up in the middle night. His had heard him talking in his sleep and when he went to the bathroom she heard him saying what is going on? When she went in there he was unable to move the right side of his body. She helped him back to bed and 911 was called. They found his blood sugar to be in the 40s. He was given oral glucose and his condition had improved by time he arrived in the ED. <Velasquez Busch MD - Last Filed: 07/29/24 06:33> Related Data Home medications: Home Medications ?Medication ?Instructions ?Recorded ?Confirmed ?Last Taken ?Type levothyroxine 175 mcg tablet 175 mcg PO QAM 05/28/19 07/29/24 07/28/24 09:18 History metformin 500 mg tablet,extended 1,000 mg PO BID 05/28/19 07/29/24 07/28/24 22:19 History release 24hr (osmotic) insulin lispro 100 unit/mL See Rx Instructions .Route .COMPLEX 05/29/19 07/29/24 07/28/24 History subcutaneous pen (Humalog KwikPen (U-100) Insulin) mecobalamin (vitamin B12) 1,000 1,000 mcg sublingual QAM 09/16/20 07/29/24 07/28/24 09:19 History mcg disintegrating tablet,sublingual wkooblzl-dlhe-jokuy acid 400 1 tablet PO DAILY 02/13/22 07/29/24 07/28/24 09:19 History mcg-lycopene 600 mcg-ginkgo 120 mg tablet omeprazole 20 mg capsule,delayed 20 mg PO DAILY 06/08/22 07/29/24 07/28/24 09:19 History release semaglutide 1 mg/dose (4 mg/3 mL) 1.5 mg subcut WEEKLY 04/12/23 07/29/24 07/26/24 History subcutaneous pen injector insulin glargine 100 unit/mL (3 45 unit subcut .COMPLEX 03/07/24 07/29/24 07/28/24 09:18 History mL) subcutaneous pen (Lantus Solostar U-100 Insulin) <Velasquez Busch MD - Last Filed: 07/29/24 06:33> Allergies/adverse reactions: Allergies Allergy/AdvReac Type Severity Reaction Status Date / Time sulfamethoxazole (From Allergy Mild Rash Verified 07/11/24 14:21 Bactrim) trimethoprim (From Bactrim) Allergy Mild Rash Verified 07/11/24 14:21 <Velasquez Busch MD - Last Filed: 07/29/24 06:33> Review of Systems 2 Review of Systems: All systems reviewed & are unremarkable except as noted in HPI and below <Champ Byrne MD - Last Filed: 07/29/24 17:16> [facility] Past Medical History Medical History: Medical History Cerumen impaction Dermatitis Cellulitis of arm, left Thoracic aortic aneurysm (TAA) Pulmonary embolism (07/09/23) Constipation Colon cancer screening Dysphagia History of esophageal dilatation Bladder cancer Hematuria Insulin dependent diabetes mellitus History of CVA (cerebrovascular accident) History of DVT (deep vein thrombosis) Long-term anticoagulation Pneumonia due to 2019 novel coronavirus Nephrolithiasis Obstructive sleep apnea Fever Essential hypertension Gastroesophageal reflux disease without esophagitis History of DVT in adulthood Hyperlipidemia Hypothyroidism Left carotid artery occlusion Type 2 diabetes mellitus without complication, without long-term current use of insulin <Velasquez Busch MD - Last Filed: 07/29/24 06:33> Surgical History Surgical History: Surgical History Hx of laminectomy History of biopsy of bladder H/O lithotripsy History of knee replacement Partial right knee replacement History of cataract extraction Status post hip replacement Left side Status post placement of ureteral stent Right side <Velasquez Busch MD - Last Filed: 07/29/24 06:33> Family History Family History: Family History Father Cancer Mother Cancer Grandparent Diabetes mellitus <Velasquez Busch MD - Last Filed: 07/29/24 06:33> Social History Social History: Social History Social History: The patient lives with his sleeve in girlfriend. The patient quit smoking 40+ years ago. The patient has 2 children. His son is the durable power sport shoe spike assembler for healthcare. The patient is retired from [employer] [place]. 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 Patient occasionally has a beer on the weekend. Maybe 3 or 4 beers a week. Patient denies any marijuana or illicit drugs. Smoking packs per day: 1.5 Smoking cigarettes per day: 30.0 Years smoked: 10 Smoking pack-years: 15.00 Smoking status: Former smoker Second hand tobacco smoke exposure: No Alcohol intake: current Drinks per week: 3 Alcohol use details: BEERS Substance use: never Substance use type: does not use Do You Feel Safe in your Home?: Yes Lack of Transportation: No Lack of Food: Never True Current Housing: I Have Housing Concerned About Future Housing: No Difficulty Paying Gas/Electric Bills: No Difficulty Paying for Meds: No Currently Unemployed: No Education: High School Diploma/GED Difficulty w/ Childcare or Family Care: No Living arrangements: alone Occupation/Education: retired Additional occupation/education comments: [employer]. Gender identity (if verbalized by the patient): Male Sexual Orientation (if Verbalized by the Patient): Straight or Heterosexual Spiritual care concerns: No <Velasquez Busch MD - Last Filed: 07/29/24 06:33> Exam 2 Narrative: APPEARANCE: No apparent distress. Head: atraumatic. EYES: EOMI, NOSE: Atraumatic NECK: Trachea midline RESPIRATORY: No increased rate of breathing CTAB CARDIOVASCULAR: RRR, no peripheral edema ABDOMINAL: Non-distended soft nontender no guarding rebound MUSCULOSKELETAl: No obvious deformities NEURO: Alert. Cranial nerves 2-12 grossly intact. Sensation light touch, motor function cerebellar function intact for 4 extremities. Gait exam was normal. SKIN:: Warm, dry. Normal color PSYCHIATRIC: Normal affect <Velasquez Busch MD - Last Filed: 07/29/24 06:33> Course Reevaluation(s) Reevaluation #1: Patient remains at his baseline and has no acute neuro deficit. CTA showed no acute bleeds. Case was discussed with the hospitalist and neurology was consulted. Patient will be admitted for further evaluation and further neurological workup. <Champ Byrne MD - Last Filed: 07/29/24 17:16> Vital Signs Vital signs: Vital Signs Temperature 98.1 F 07/29/24 03:00 Pulse Rate 80 07/29/24 03:00 Respiratory Rate 15 07/29/24 03:00 Blood Pressure 161/80 H 07/29/24 03:00 Pulse Oximetry 99 07/29/24 03:00 Temperature 98.4 F 07/29/24 14:00 Pulse Rate 78 07/29/24 14:00 Respiratory Rate 18 07/29/24 14:00 Blood Pressure 143/70 H 07/29/24 14:00 Pulse Oximetry 96 07/29/24 14:00 Oxygen Delivery Room Air 07/29/24 16:52 <Velasquez Busch MD - Last Filed: 07/29/24 06:33> Vital Signs Temperature 98.1 F 07/29/24 03:00 Pulse Rate 80 07/29/24 03:00 Respiratory Rate 15 07/29/24 03:00 Blood Pressure 161/80 H 07/29/24 03:00 Pulse Oximetry 99 07/29/24 03:00 Temperature 98.4 F 07/29/24 14:00 Pulse Rate 78 07/29/24 14:00 Respiratory Rate 18 07/29/24 14:00 Blood Pressure 143/70 H 07/29/24 14:00 Pulse Oximetry 96 07/29/24 14:00 Oxygen Delivery Room Air 07/29/24 16:52 <Champ Byrne MD - Last Filed: 07/29/24 17:16> Medical Decision Making MDM Narrative Medical decision making narrative: -Course: 74-year-old male presenting with confusion and right-sided weakness in the setting of low blood sugar. He was given oral glucose enroute by ems and by time he arrived in the ED his condition had return to normal. However, while I was in the evaluating the patient he developed sudden onset right-sided stroke symptoms including right-sided facial droop, dysarthria, right arm drift, right leg drift, R hand dystaxia, and right-sided hemianopsia for an NIH of 8. Glucose was rechecked and was 107. Patient was then sent to the CT scan for CT brain and CTA. Patient is on Eliquis is not a tPA candidate. By time the patient returned from the CT scanner his symptoms had completely resolved. CTA showed a chronic left carotid artery occlusion. No other findings. Incidentally patient's urine had greater than 100 red cells and 51-100 white blood cells. He has been urinating blood sent late April. He follows with a urologist at [facility]. He denied dysuria urgency or frequency. Placed on ceftriaxone until culture results return. Patient will be admitted the hospital for evaluation by Neurology for TIA. NIH Stroke Scale/Score (NIHSS) from [email or web address] on 07/29/2024 All calculations should be rechecked by clinician prior to use RESULT SUMMARY: 8 points NIH Stroke Scale INPUTS: 1A: Level of consciousness ?> 0 = Alert; keenly responsive 1B: Ask month and age ?> 0 = Both questions right 1C: 'Blink eyes' & 'squeeze hands' ?> 0 = Performs both tasks 2: Horizontal extraocular movements ?> 0 = Normal 3: Visual herrera ?> 2 = Complete hemianopia 4: Facial palsy ?> 2 = Partial paralysis (lower face) 5A: Left arm motor drift ?> 0 = No drift for 10 seconds 5B: Right arm motor drift ?> 1 = Drift, but doesn't hit bed 6A: Left leg motor drift ?> 0 = No drift for 5 seconds 6B: Right leg motor drift ?> 1 = Drift, but doesn't hit bed 7: Limb Ataxia ?> 1 = Ataxia in 1 Limb 8: Sensation ?> 0 = Normal; no sensory loss 9: Language/aphasia ?> 0 = Normal; no aphasia 10: Dysarthria ?> 1 = Mild-moderate dysarthria: slurring but can be understood 11: Extinction/inattention ?> 0 = No abnormality <Velasquez Busch MD - Last Filed: 07/29/24 06:33> Vital Signs Vital Signs: Vital Signs Temperature 98.1 F 07/29/24 03:00 Pulse Rate 80 07/29/24 03:00 Respiratory Rate 15 07/29/24 03:00 Blood Pressure 161/80 H 07/29/24 03:00 Pulse Oximetry 99 07/29/24 03:00 Temperature 98.4 F 07/29/24 14:00 Pulse Rate 78 07/29/24 14:00 Respiratory Rate 18 07/29/24 14:00 Blood Pressure 143/70 H 07/29/24 14:00 Pulse Oximetry 96 07/29/24 14:00 Oxygen Delivery Room Air 07/29/24 16:52 <Velasquez Busch MD - Last Filed: 07/29/24 06:33> Vital Signs Temperature 98.1 F 07/29/24 03:00 Pulse Rate 80 07/29/24 03:00 Respiratory Rate 15 07/29/24 03:00 Blood Pressure 161/80 H 07/29/24 03:00 Pulse Oximetry 99 07/29/24 03:00 Temperature 98.4 F 07/29/24 14:00 Pulse Rate 78 07/29/24 14:00 Respiratory Rate 18 07/29/24 14:00 Blood Pressure 143/70 H 07/29/24 14:00 Pulse Oximetry 96 07/29/24 14:00 Oxygen Delivery Room Air 07/29/24 16:52 <Champ Byrne MD - Last Filed: 07/29/24 17:16> Lab Data Result diagrams: 07/29/24 05:44 07/29/24 05:44 <Velasquez Busch MD - Last Filed: 07/29/24 06:33> Labs: Lab Results 07/29/24 07/29/24 07/29/24 Range/Units 03:13 04:29 04:38 WBC (4.5-10.0) K/mm3 RBC (4.6-6.20) M/mm3 Hgb (14.0-18.0) g/dL Hct (42.0-52.0) % MCV (80-100) fl MCH (26-34) pg MCHC (32-36) g/dl RDW (11.5-14.5) % Plt Count (150-375) k/mm3 MPV (7.4-10.4) fl Immature Gran % (Auto) (0-0.5) % Neut % (Auto) (45.5-73.1) % Lymph % (Auto) (18.3-44.2) % Moffat % (Auto) (2.6-8.5) % Eos % (Auto) (0-4.4) % Baso % (Auto) (0.2-1.2) % Lymph # (Auto) (0.9-3.2) K/mm3 Moffat # (Auto) (0.1-0.6) K/mm3 Eos # (Auto) (0-0.3) K/mm3 Baso # (Auto) (0.0-0.1) K/mm3 Abs Immat Gran (auto) (0.00-0.031) K/mm3 Absolute Neuts (auto) (1.3-6.7) K/mm3 Absolute Nucleated RBC (0.0-0.012) K/mm3 Nucleated RBC % (0.0-0.2) % PT (11.1-14.7) Seconds INR APTT (22.3-36.8) Seconds Sodium (137-145) mmol/L Potassium (3.4-5.0) mmol/L Chloride (98-107) mmol/L Carbon Dioxide (22-30) mmol/L Anion Gap (4-12) mmol/L BUN (9-20) mg/dL Creatinine (0.8-1.5) mg/dL Estim Creat Clear Calc ml/min Estimated GFR (59 - ) Glucose (65-110) mg/dL POC Capillary Glucose 107 H 109 H (65-105) mg/dl Calcium (8.4-10.2) mg/dL Total Bilirubin (0.2-1.3) mg/dL AST (17-59) U/L ALT (6-50) U/L Alkaline Phosphatase (38-126) U/L Troponin I (0.000-0.034) ng/mL Total Protein (6.3-8.2) g/dL Albumin (3.5-5.1) g/dL Urine Color [place] H (Yellow) Urine Appearance Cloudy H (Clear) Urine pH 5.5 (5.0-9.0) Ur Specific [place] 1.017 (1.001-1.035) Urine Protein 2+ H (Negative) mg/dL Urine Glucose (UA) Negative (Negative) mg/dL Urine Ketones Negative (Negative) mg/dL Ur Blood (Man) 3+ H (Negative) Urine Nitrate Negative (Negative) Urine Bilirubin Negative (Negative) Urine Urobilinogen 1.0 (<2.0) mg/dL Add Ur Microanalysis Reviewed Leukocyte Esterase Rfl 2+ H (Negative) NEGRA/UL Urine RBC >100 H (0-2) /hpf Urine WBC 51-100 H (0-3) /hpf Ur Squamous Epith Cells Occasional (Few) /hpf Calcium Oxalate Crystal Present (None) /hpf Urine Bacteria None seen /hpf Urine Casts 0-2 Urine Mucus Present /lpf Influenza A (RT-PCR) (Negative) Influenza B (RT-PCR) (Negative) RSV (RT-PCR) (Negative) SARS-CoV-2 RNA (RT-PCR) (Negative) 07/29/24 07/29/24 07/29/24 Range/Units 05:01 05:44 05:44 WBC 5.4 (4.5-10.0) K/mm3 RBC 4.48 L (4.6-6.20) M/mm3 Hgb 14.7 (14.0-18.0) g/dL Hct 43.8 (42.0-52.0) % MCV 97.8 (80-100) fl MCH 32.8 (26-34) pg MCHC 33.6 (32-36) g/dl RDW 13.2 (11.5-14.5) % Plt Count 226 (150-375) k/mm3 MPV 10.8 H (7.4-10.4) fl Immature Gran % (Auto) 0.2 (0-0.5) % Neut % (Auto) 51.2 (45.5-73.1) % Lymph % (Auto) 25.7 (18.3-44.2) % Moffat % (Auto) 10.7 H (2.6-8.5) % Eos % (Auto) 11.1 H (0-4.4) % Baso % (Auto) 1.1 (0.2-1.2) % Lymph # (Auto) 1.39 (0.9-3.2) K/mm3 M[place]at # (Auto) 0.6 (0.1-0.6) K/mm3 Eos # (Auto) 0.6 H (0-0.3) K/mm3 Baso # (Auto) 0.1 (0.0-0.1) K/mm3 Abs Immat Gran (auto) 0.01 (0.00-0.031) K/mm3 Absolute Neuts (auto) 2.8 (1.3-6.7) K/mm3 Absolute Nucleated RBC 0.000 (0.0-0.012) K/mm3 Nucleated RBC % 0.0 (0.0-0.2) % PT 14.9 H (11.1-14.7) Seconds INR 1.1 APTT 29.2 (22.3-36.8) Seconds Sodium 139 (137-145) mmol/L Potassium 4.0 (3.4-5.0) mmol/L Chloride 104 (98-107) mmol/L Carbon Dioxide 26 (22-30) mmol/L Anion Gap 9 (4-12) mmol/L BUN 16 (9-20) mg/dL Creatinine 1.10 0.89 (0.8-1.5) mg/dL Estim Creat Clear Calc 58 71 ml/min Estimated GFR > 60 > 60 (59 - ) Glucose 134 H (65-110) mg/dL POC Capillary Glucose (65-105) mg/dl Calcium 9.9 (8.4-10.2) mg/dL Total Bilirubin 0.5 (0.2-1.3) mg/dL AST 27 (17-59) U/L ALT 22 (6-50) U/L Alkaline Phosphatase 73 (38-126) U/L Troponin I < 0.012 Cancelled (0.000-0.034) ng/mL Total Protein 7.0 (6.3-8.2) g/dL Albumin 4.1 (3.5-5.1) g/dL Urine Color (Yellow) Urine Appearance (Clear) Urine pH (5.0-9.0) Ur Specific [place] (1.001-1.035) Urine Protein (Negative) mg/dL Urine Glucose (UA) (Negative) mg/dL Urine Ketones (Negative) mg/dL Ur Blood (Man) (Negative) Urine Nitrate (Negative) Urine Bilirubin (Negative) Urine Urobilinogen (<2.0) mg/dL Add Ur Microanalysis Leukocyte Esterase Rfl (Negative) NEGRA/UL Urine RBC (0-2) /hpf Urine WBC (0-3) /hpf Ur Squamous Epith Cells (Few) /hpf Calcium Oxalate Crystal (None) /hpf Urine Bacteria /hpf Urine Casts Urine Mucus /lpf Influenza A (RT-PCR) (Negative) Influenza B (RT-PCR) (Negative) RSV (RT-PCR) (Negative) SARS-CoV-2 RNA (RT-PCR) (Negative) 07/29/24 Range/Units 05:49 WBC (4.5-10.0) K/mm3 RBC (4.6-6.20) M/mm3 Hgb (14.0-18.0) g/dL Hct (42.0-52.0) % MCV (80-100) fl MCH (26-34) pg MCHC (32-36) g/dl RDW (11.5-14.5) % Plt Count (150-375) k/mm3 MPV (7.4-10.4) fl Immature Gran % (Auto) (0-0.5) % Neut % (Auto) (45.5-73.1) % Lymph % (Auto) (18.3-44.2) % Moffat % (Auto) (2.6-8.5) % Eos % (Auto) (0-4.4) % Baso % (Auto) (0.2-1.2) % Lymph # (Auto) (0.9-3.2) K/mm3 Moffat # (Auto) (0.1-0.6) K/mm3 Eos # (Auto) (0-0.3) K/mm3 Baso # (Auto) (0.0-0.1) K/mm3 Abs Immat Gran (auto) (0.00-0.031) K/mm3 Absolute Neuts (auto) (1.3-6.7) K/mm3 Absolute Nucleated RBC (0.0-0.012) K/mm3 Nucleated RBC % (0.0-0.2) % PT (11.1-14.7) Seconds INR APTT (22.3-36.8) Seconds Sodium (137-145) mmol/L Potassium (3.4-5.0) mmol/L Chloride (98-107) mmol/L Carbon Dioxide (22-30) mmol/L Anion Gap (4-12) mmol/L BUN (9-20) mg/dL Creatinine (0.8-1.5) mg/dL Estim Creat Clear Calc ml/min Estimated GFR (59 - ) Glucose (65-110) mg/dL POC Capillary Glucose (65-105) mg/dl Calcium (8.4-10.2) mg/dL Total Bilirubin (0.2-1.3) mg/dL AST (17-59) U/L ALT (6-50) U/L Alkaline Phosphatase (38-126) U/L Troponin I (0.000-0.034) ng/mL Total Protein (6.3-8.2) g/dL Albumin (3.5-5.1) g/dL Urine Color (Yellow) Urine Appearance (Clear) Urine pH (5.0-9.0) Ur Specific [place] (1.001-1.035) Urine Protein (Negative) mg/dL Urine Glucose (UA) (Negative) mg/dL Urine Ketones (Negative) mg/dL Ur Blood (Man) (Negative) Urine Nitrate (Negative) Urine Bilirubin (Negative) Urine Urobilinogen (<2.0) mg/dL Add Ur Microanalysis Leukocyte Esterase Rfl (Negative) NEGRA/UL Urine RBC (0-2) /hpf Urine WBC (0-3) /hpf Ur Squamous Epith Cells (Few) /hpf Calcium Oxalate Crystal (None) /hpf Urine Bacteria /hpf Urine Casts Urine Mucus /lpf Influenza A (RT-PCR) Negative (Negative) Influenza B (RT-PCR) Negative (Negative) RSV (RT-PCR) Negative (Negative) SARS-CoV-2 RNA (RT-PCR) Negative (Negative) <Velasquez Busch MD - Last Filed: 07/29/24 06:33> Lab Results 07/29/24 07/29/24 07/29/24 Range/Units 03:13 04:29 04:38 WBC (4.5-10.0) K/mm3 RBC (4.6-6.20) M/mm3 Hgb (14.0-18.0) g/dL Hct (42.0-52.0) % MCV (80-100) fl MCH (26-34) pg MCHC (32-36) g/dl RDW (11.5-14.5) % Plt Count (150-375) k/mm3 MPV (7.4-10.4) fl Immature Gran % (Auto) (0-0.5) % Neut % (Auto) (45.5-73.1) % Lymph % (Auto) (18.3-44.2) % Moffat % (Auto) (2.6-8.5) % Eos % (Auto) (0-4.4) % Baso % (Auto) (0.2-1.2) % Lymph # (Auto) (0.9-3.2) K/mm3 [place]at # (Auto) (0.1-0.6) K/mm3 Eos # (Auto) (0-0.3) K/mm3 Baso # (Auto) (0.0-0.1) K/mm3 Abs Immat Gran (auto) (0.00-0.031) K/mm3 Absolute Neuts (auto) (1.3-6.7) K/mm3 Absolute Nucleated RBC (0.0-0.012) K/mm3 Nucleated RBC % (0.0-0.2) % PT (11.1-14.7) Seconds INR APTT (22.3-36.8) Seconds Sodium (137-145) mmol/L Potassium (3.4-5.0) mmol/L Chloride (98-107) mmol/L Carbon Dioxide (22-30) mmol/L Anion Gap (4-12) mmol/L BUN (9-20) mg/dL Creatinine (0.8-1.5) mg/dL Estim Creat Clear Calc ml/min Estimated GFR (59 - ) Glucose (65-110) mg/dL POC Capillary Glucose 107 H 109 H (65-105) mg/dl Calcium (8.4-10.2) mg/dL Total Bilirubin (0.2-1.3) mg/dL AST (17-59) U/L ALT (6-50) U/L Alkaline Phosphatase (38-126) U/L Troponin I (0.000-0.034) ng/mL Total Protein (6.3-8.2) g/dL Albumin (3.5-5.1) g/dL Urine Color [place] H (Yellow) Urine Appearance Cloudy H (Clear) Urine pH 5.5 (5.0-9.0) Ur Specific [place] 1.017 (1.001-1.035) Urine Protein 2+ H (Negative) mg/dL Urine Glucose (UA) Negative (Negative) mg/dL Urine Ketones Negative (Negative) mg/dL Ur Blood (Man) 3+ H (Negative) Urine Nitrate Negative (Negative) Urine Bilirubin Negative (Negative) Urine Urobilinogen 1.0 (<2.0) mg/dL Add Ur Microanalysis Reviewed Leukocyte Esterase Rfl 2+ H (Negative) NEGRA/UL Urine RBC >100 H (0-2) /hpf Urine WBC 51-100 H (0-3) /hpf Ur Squamous Epith Cells Occasional (Few) /hpf Calcium Oxalate Crystal Present (None) /hpf Urine Bacteria None seen /hpf Urine Casts 0-2 Urine Mucus Present /lpf Influenza A (RT-PCR) (Negative) Influenza B (RT-PCR) (Negative) RSV (RT-PCR) (Negative) SARS-CoV-2 RNA (RT-PCR) (Negative) 07/29/24 07/29/24 07/29/24 Range/Units 05:01 05:44 05:44 WBC 5.4 (4.5-10.0) K/mm3 RBC 4.48 L (4.6-6.20) M/mm3 Hgb 14.7 (14.0-18.0) g/dL Hct 43.8 (42.0-52.0) % MCV 97.8 (80-100) fl MCH 32.8 (26-34) pg MCHC 33.6 (32-36) g/dl RDW 13.2 (11.5-14.5) % Plt Count 226 (150-375) k/mm3 MPV 10.8 H (7.4-10.4) fl Immature Gran % (Auto) 0.2 (0-0.5) % Neut % (Auto) 51.2 (45.5-73.1) % Lymph % (Auto) 25.7 (18.3-44.2) % [place] % (Auto) 10.7 H (2.6-8.5) % Eos % (Auto) 11.1 H (0-4.4) % Baso % (Auto) 1.1 (0.2-1.2) % Lymph # (Auto) 1.39 (0.9-3.2) K/mm3 [place] # (Auto) 0.6 (0.1-0.6) K/mm3 Eos # (Auto) 0.6 H (0-0.3) K/mm3 Baso # (Auto) 0.1 (0.0-0.1) K/mm3 Abs Immat Gran (auto) 0.01 (0.00-0.031) K/mm3 Absolute Neuts (auto) 2.8 (1.3-6.7) K/mm3 Absolute Nucleated RBC 0.000 (0.0-0.012) K/mm3 Nucleated RBC % 0.0 (0.0-0.2) % PT 14.9 H (11.1-14.7) Seconds INR 1.1 APTT 29.2 (22.3-36.8) Seconds Sodium 139 (137-145) mmol/L Potassium 4.0 (3.4-5.0) mmol/L Chloride 104 (98-107) mmol/L Carbon Dioxide 26 (22-30) mmol/L Anion Gap 9 (4-12) mmol/L BUN 16 (9-20) mg/dL Creatinine 1.10 0.89 (0.8-1.5) mg/dL Estim Creat Clear Calc 58 71 ml/min Estimated GFR > 60 > 60 (59 - ) Glucose 134 H (65-110) mg/dL POC Capillary Glucose (65-105) mg/dl Calcium 9.9 (8.4-10.2) mg/dL Total Bilirubin 0.5 (0.2-1.3) mg/dL AST 27 (17-59) U/L ALT 22 (6-50) U/L Alkaline Phosphatase 73 (38-126) U/L Troponin I < 0.012 Cancelled (0.000-0.034) ng/mL Total Protein 7.0 (6.3-8.2) g/dL Albumin 4.1 (3.5-5.1) g/dL Urine Color (Yellow) Urine Appearance (Clear) Urine pH (5.0-9.0) Ur Specific [place] (1.001-1.035) Urine Protein (Negative) mg/dL Urine Glucose (UA) (Negative) mg/dL Urine Ketones (Negative) mg/dL Ur Blood (Man) (Negative) Urine Nitrate (Negative) Urine Bilirubin (Negative) Urine Urobilinogen (<2.0) mg/dL Add Ur Microanalysis Leukocyte Esterase Rfl (Negative) NEGRA/UL Urine RBC (0-2) /hpf Urine WBC (0-3) /hpf Ur Squamous Epith Cells (Few) /hpf Calcium Oxalate Crystal (None) /hpf Urine Bacteria /hpf Urine Casts Urine Mucus /lpf Influenza A (RT-PCR) (Negative) Influenza B (RT-PCR) (Negative) RSV (RT-PCR) (Negative) SARS-CoV-2 RNA (RT-PCR) (Negative) 07/29/24 Range/Units 05:49 WBC (4.5-10.0) K/mm3 RBC (4.6-6.20) M/mm3 Hgb (14.0-18.0) g/dL Hct (42.0-52.0) % MCV (80-100) fl MCH (26-34) pg MCHC (32-36) g/dl RDW (11.5-14.5) % Plt Count (150-375) k/mm3 MPV (7.4-10.4) fl Immature Gran % (Auto) (0-0.5) % Neut % (Auto) (45.5-73.1) % Lymph % (Auto) (18.3-44.2) % [place] % (Auto) (2.6-8.5) % Eos % (Auto) (0-4.4) % Baso % (Auto) (0.2-1.2) % Lymph # (Auto) (0.9-3.2) K/mm3 [place] # (Auto) (0.1-0.6) K/mm3 Eos # (Auto) (0-0.3) K/mm3 Baso # (Auto) (0.0-0.1) K/mm3 Abs Immat Gran (auto) (0.00-0.031) K/mm3 Absolute Neuts (auto) (1.3-6.7) K/mm3 Absolute Nucleated RBC (0.0-0.012) K/mm3 Nucleated RBC % (0.0-0.2) % PT (11.1-14.7) Seconds INR APTT (22.3-36.8) Seconds Sodium (137-145) mmol/L Potassium (3.4-5.0) mmol/L Chloride (98-107) mmol/L Carbon Dioxide (22-30) mmol/L Anion Gap (4-12) mmol/L BUN (9-20) mg/dL Creatinine (0.8-1.5) mg/dL Estim Creat Clear Calc ml/min Estimated GFR (59 - ) Glucose (65-110) mg/dL POC Capillary Glucose (65-105) mg/dl Calcium (8.4-10.2) mg/dL Total Bilirubin (0.2-1.3) mg/dL AST (17-59) U/L ALT (6-50) U/L Alkaline Phosphatase (38-126) U/L Troponin I (0.000-0.034) ng/mL Total Protein (6.3-8.2) g/dL Albumin (3.5-5.1) g/dL Urine Color (Yellow) Urine Appearance (Clear) Urine pH (5.0-9.0) Ur Specific [place] (1.001-1.035) Urine Protein (Negative) mg/dL Urine Glucose (UA) (Negative) mg/dL Urine Ketones (Negative) mg/dL Ur Blood (Man) (Negative) Urine Nitrate (Negative) Urine Bilirubin (Negative) Urine Urobilinogen (<2.0) mg/dL Add Ur Microanalysis Leukocyte Esterase Rfl (Negative) NEGRA/UL Urine RBC (0-2) /hpf Urine WBC (0-3) /hpf Ur Squamous Epith Cells (Few) /hpf Calcium Oxalate Crystal (None) /hpf Urine Bacteria /hpf Urine Casts Urine Mucus /lpf Influenza A (RT-PCR) Negative (Negative) Influenza B (RT-PCR) Negative (Negative) RSV (RT-PCR) Negative (Negative) SARS-CoV-2 RNA (RT-PCR) Negative (Negative) <Champ Byrne MD - Last Filed: 07/29/24 17:16> Discharge Plan Discharge Clinical Impression: Brain TIA, Acute UTI <Velasquez Busch MD - Last Filed: 07/29/24 06:33> Patient Disposition: Still a Patient <Velasquez Busch MD - Last Filed: 07/29/24 06:33> Condition: Stable <Velasquez Busch MD - Last Filed: 07/29/24 06:33>
[2024-07-29 04:42] LABS: Glucose Point of Care 109 mg/dl (65-105)
[2024-07-29 04:50] LABS: Add Urine Microscopic? YES; Appearance Urine Cloudy (Clear); Bacteria Urine None Seen /hpf; Bilirubin Urine Negative (Negative); Blood Urine 3+ (Negative); Calcium Oxalate Crystals Urine Present /hpf; Color Urine Orange (Yellow); Glucose Urine UA Negative (Negative); Ketones Urine Negative (Negative); Leukocyte Esterase Ur 2+ LEU/UL (Negative); Mucus Urine Present /lpf; Need Manual Microscopic Reviewed; Nitrate Urine Negative (Negative); Non Pathogenic Casts 0-2; Protein Urine 2+ mg/dL (Negative); RBC Urine >100 /hpf (0-2); Specific Grav Ur 1.017 (1.001-1.035); Squamous Epithelial Cell Urine Occasional /hpf (Few); WBC Urine 51-100 /hpf (0-3); pH Urine 5.5 (5.0-9.0)
[2024-07-29 05:03] LABS: Estimated CRCL calculation 58 ml/min; Estimated Glomerular Filt Rate > 60
[2024-07-29 05:56] LABS: Basophils Absolute Auto 0.1 K/mm3 (0.0-0.1); Basophils Percent Auto 1.1 % (0.2-1.2); Eosinophils Absolute Auto 0.6 K/mm3 (0-0.3); Eosinophils Percent Auto 11.1 % (0-4.4); Hematocrit 43.8 % (42.0-52.0); Hemoglobin 14.7 g/dL (14.0-18.0); Immature Granulocyte Absolute 0.01 K/mm3 (0.00-0.031); Immature Granulocyte Percent A 0.2 % (0-0.5); Lymphocytes Absolute Auto 1.39 K/mm3 (0.9-3.2); Lymphocytes Percent Auto 25.7 % (18.3-44.2); Mean Corpuscular HGB Conc 33.6 g/dl (32-36); Mean Corpuscular Hemoglobin 32.8 pg (26-34); Mean Corpuscular Volume 97.8 fl (80-100); Mean Platelet Volume 10.8 fl (7.4-10.4); Monocytes Absolute Auto 0.6 K/mm3 (0.1-0.6); Monocytes Percent Auto 10.7 % (2.6-8.5); Neutrophils Absolute Auto 2.8 K/mm3 (1.3-6.7); Neutrophils Percent Auto 51.2 % (45.5-73.1); Platelet Count Result 226 k/mm3 (150-375); Red Blood Count 4.48 M/mm3 (4.6-6.20); Red Cell Distribution Width 13.2 % (11.5-14.5); White Blood Count 5.4 K/mm3 (4.5-10.0)
[2024-07-29 06:05] LABS: Alanine Aminotransferase 22 U/L (6-50); Albumin Level 4.1 g/dL (3.5-5.1); Alkaline Phosphatase 73 U/L (38-126); Anion Gap 9 mmol/L (4-12); Aspartate Amino Transferase 27 U/L (17-59); Bilirubin,Total 0.5 mg/dL (0.2-1.3); Blood Urea Nitrogen 16 mg/dL (9-20); Calcium 9.9 mg/dL (8.4-10.2); Carbon Dioxide 26 mmol/L (22-30); Chloride 104 mmol/L (98-107); Estimated CRCL calculation 71 ml/min; Estimated Glomerular Filt Rate > 60; Glucose 134 mg/dL (65-110); Sodium 139 mmol/L (137-145)
[2024-07-29 06:14] LABS: INR 1.1; Prothrombin Time 14.9 Seconds (11.1-14.7)
[2024-07-29 06:15] LABS: Partial Thromboplastin Time 29.2 Seconds (22.3-36.8)
[2024-07-29 06:17] LABS: Troponin I < 0.012 ng/mL (0.000-0.034)
--- NOTE | 2024-07-29 06:37 | PC.NURSE ---
MD Busch verbally states no need to draw blood cultures prior to starting antibiotics.
[2024-07-29 06:38] LABS: Influenza A QL RT-PCR Negative (Negative); Influenza B QL RT-PCR Negative (Negative); RSV RNA, RT-PCR Negative (Negative); SARS-CoV-2 RNA PCR Negative (Negative)
--- NOTE | 2024-07-29 08:25 | ECG_ITS ---
Test Date: 2024-07-29 08:32:06 Measurements Intervals [place] Rate: 72 P: 60 CT: 168 QRS: 84 QRSD: 90 T: 48 QT: 372 QTc: 408 Interpretive Statements SINUS RHYTHM Electronically Signed On 07-30-2024 13:56:11 CDT by Abhi Dennis D.O
--- NOTE | 2024-07-29 09:36 | P.HP_ITS ---
H&P: HPI History of Present Illness Date/Time: 07/29/24 09:36 Chief Complaint: Right-sided weakness Narrative: 74 years old gentleman with history of diabetes on insulin, hypothyroidism, CVA, DVT, LSA, hypertension, GERD, hyperlipidemia, left carotid artery occlusion present ED with a chief complaint of right sided weakness. Patient had a sudden onset of right lower extremity weakness about 1:00 a.m. in the night today. Patient denied headache, dizziness, palpitation, chest pain. EMS was called, patient was found have hypoglycemia. Blood glucose about 40, patient was given oral glucose. Patient was brought to ED for evaluation treatment. In the ED, patient had episode of right facial droop and slurred speech. Patient also had blurred vision of right eye. Patient has history of stroke and left carotid artery 100% occlusion, not candidate for surgical procedure. Patient denied fever, chills, cough, chest pain, abdomen pain, nausea vomiting diarrhea dysuria fever or chills. When I saw exam patient in patient room, patient's strength has recovered, slurred speech resolved, patient denies blurred vision double vision Upon arrival to ED, patient afebrile blood pressure stable, pulse ox 99 on room air, CBC remarkable Chemistry unremarkable, glucose 134, UA shows pyuria, hematuria CTA neck and and head showed complete occlusion of the left internal carotid artery, 60% stenosis of the proximal right internal carotid artery. Patient is on Eliquis, not candidates for thrombolysis treatment Patient received ceftriaxone in the ED ER physician also consulted neurologist, we admit patient for further evaluation and management Review of Systems Review of Systems: ROS negative except above PMFSH Past Medical History Medical History Cerumen impaction Dermatitis Cellulitis of arm, left Thoracic aortic aneurysm (TAA) Pulmonary embolism (07/09/23) Constipation Colon cancer screening Dysphagia History of esophageal dilatation Bladder cancer Hematuria Insulin dependent diabetes mellitus History of CVA (cerebrovascular accident) History of DVT (deep vein thrombosis) Long-term anticoagulation Pneumonia due to 2019 novel coronavirus Nephrolithiasis Obstructive sleep apnea Fever Essential hypertension Gastroesophageal reflux disease without esophagitis History of DVT in adulthood Hyperlipidemia Hypothyroidism Left carotid artery occlusion Type 2 diabetes mellitus without complication, without long-term current use of insulin Surgical History Surgical History Hx of laminectomy History of biopsy of bladder H/O lithotripsy History of knee replacement Partial right knee replacement History of cataract extraction Status post hip replacement Left side Status post placement of ureteral stent Right side Family History Family History Father Cancer Mother Cancer Grandparent Diabetes mellitus Social History Social History Social History: The patient lives with his sleeve in girlfriend. The patient quit smoking 40+ years ago. The patient has 2 children. His son is the durable power tax attorney for healthcare. The patient is retired from [employer]. 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 Patient occasionally has a beer on the weekend. Maybe 3 or 4 beers a week. Patient denies any marijuana or illicit drugs. Smoking packs per day: 1.5 Smoking cigarettes per day: 30.0 Years smoked: 10 Smoking pack-years: 15.00 Smoking status: Former smoker Second hand tobacco smoke exposure: No Alcohol intake: current Drinks per week: 3 Alcohol use details: BEERS Substance use: never Substance use type: does not use Do You Feel Safe in your Home?: Yes Lack of Transportation: No Lack of Food: Never True Current Housing: I Have Housing Concerned About Future Housing: No Difficulty Paying Gas/Electric Bills: No Difficulty Paying for Meds: No Currently Unemployed: No Education: High School Diploma/GED Difficulty w/ Childcare or Family Care: No Living arrangements: alone Occupation/Education: retired Additional occupation/education comments: [employer] [place]. Gender identity (if verbalized by the patient): Male Sexual Orientation (if Verbalized by the Patient): Straight or Heterosexual Spiritual care concerns: No Meds Home Medications and Allergies Home Medications ?Medication ?Instructions ?Recorded ?Confirmed ?Type levothyroxine 175 mcg tablet 175 mcg PO QAM 05/28/19 07/29/24 History metformin 500 mg tablet,extended 1,000 mg PO BID 05/28/19 07/29/24 History release 24hr (osmotic) insulin lispro 100 unit/mL See Rx Instructions .Route .COMPLEX 05/29/19 07/29/24 History subcutaneous pen (Humalog KwikPen (U-100) Insulin) mecobalamin (vitamin B12) 1,000 1,000 mcg sublingual QAM 09/16/20 07/29/24 History mcg disintegrating tablet,sublingual ugzorchf-kfyg-pgrin acid 400 1 tablet PO DAILY 02/13/22 07/29/24 History mcg-lycopene 600 mcg-ginkgo 120 mg tablet omeprazole 20 mg capsule,delayed 20 mg PO DAILY 06/08/22 07/29/24 History release semaglutide 1 mg/dose (4 mg/3 mL) 1.5 mg subcut WEEKLY 04/12/23 07/29/24 History subcutaneous pen injector apixaban 5 mg tablet (Eliquis) 5 mg PO BID #180 tabs 02/12/24 07/29/24 Rx insulin glargine 100 unit/mL (3 45 unit subcut .COMPLEX 03/07/24 07/29/24 History mL) subcutaneous pen (Lantus Solostar U-100 Insulin) atenolol 50 mg tablet 50 mg PO QAM #90 tabs 06/05/24 07/29/24 Rx tramadol 50 mg tablet 50 mg PO Q6H PRN pain #120 tabs 07/12/24 07/29/24 Rx fenofibrate micronized 200 mg See Rx Instructions .Route 07/16/24 07/29/24 Rx capsule .COMPLEX #90 caps celecoxib 200 mg capsule 200 mg PO BID #200 caps 07/17/24 07/29/24 Rx rosuvastatin 10 mg tablet 10 mg PO HS #90 tabs 07/20/24 07/29/24 Rx gabapentin 300 mg capsule 300 mg PO BID #60 caps 07/21/24 07/29/24 Rx Allergies Allergy/AdvReac Type Severity Reaction Status Date / Time sulfamethoxazole (From Allergy Mild Rash Verified 07/11/24 14:21 Bactrim) trimethoprim (From Bactrim) Allergy Mild Rash Verified 07/11/24 14:21 Vital Signs Vital Signs - 24 hr 07/29/24 03:00 07/29/24 03:08 07/29/24 03:09 Temperature 98.1 F Pulse Rate 80 78 80 Respiratory Rate 15 19 Blood Pressure 161/80 H 161/80 H Pulse Oximetry 99 100 07/29/24 05:52 07/29/24 07:06 07/29/24 08:15 Temperature Pulse Rate 90 75 76 Respiratory Rate 15 16 16 Blood Pressure 154/87 H 157/85 H 137/80 Pulse Oximetry 98 98 96 07/29/24 09:13 Temperature Pulse Rate 75 Respiratory Rate 19 Blood Pressure 161/79 H Pulse Oximetry 98 Exam Narrative: GENERAL: Pleasant, in no acute distress. Well-nourished. - EYES: EOMI. Anicteric. - HENT: Moist mucous membranes. - LUNGS: Clear to auscultation bilateral ly, no wheezing, rhonchi, or rales. - CARDIOVASCULAR: Regular rate and rhyth m. No murmur. No JVD. - ABDOMEN: Soft, non-tender and non-dist ended. No palpable masses. - EXTREMITIES: No edema. Peripheral puls es 2+. Non-tender. - NEUROLOGIC: No focal neurological defi cits. CN II-XII grossly intact. - PSYCHIATRIC: Awake, Alert and oriented x 3. Appropriate mood and affect. - SKIN: No rashes or lesions. Warm. - LYMPH: No cervical lymphadenopathy. H&P: Results Labs Labs: Short CBC 07/29/24 Range/Units 05:44 WBC 5.4 (4.5-10.0) K/mm3 Hgb 14.7 (14.0-18.0) g/dL Hct 43.8 (42.0-52.0) % Plt Count 226 (150-375) k/mm3 BMP 07/29/24 07/29/24 05:01 05:44 Sodium 139 Potassium 4.0 Chloride 104 Carbon Dioxide 26 BUN 16 Creatinine 1.10 0.89 Glucose 134 H Calcium 9.9 Cardiac Enzymes 07/29/24 07/29/24 Range/Units 05:44 05:44 Troponin I < 0.012 Cancelled (0.000-0.034) ng/mL Liver Function 07/29/24 Range/Units 05:44 Total Bilirubin 0.5 (0.2-1.3) mg/dL AST 27 (17-59) U/L ALT 22 (6-50) U/L Alkaline Phosphatase 73 (38-126) U/L Albumin 4.1 (3.5-5.1) g/dL Urine 07/29/24 Range/Units 04:29 Urine Color [place] H (Yellow) Urine Appearance Cloudy H (Clear) Urine pH 5.5 (5.0-9.0) Ur Specific [place] 1.017 (1.001-1.035) Urine Protein 2+ H (Negative) mg/dL Urine Glucose (UA) Negative (Negative) mg/dL Assessment and Plan Assessment and plan (1) Acute CVA (cerebrovascular accident): Code(s): I63.9 - Cerebral infarction, unspecified Status: Acute (2) Hypoglycemia associated with diabetes: Code(s): E11.649 - Type 2 diabetes mellitus with hypoglycemia without coma Status: Acute (3) CAD (coronary artery disease): Code(s): I25.10 - Atherosclerotic heart disease of [place] coronary artery without angina pectoris Status: Chronic (4) Essential hypertension: Code(s): I10 - Essential (primary) hypertension Status: Acute (5) Insulin dependent diabetes mellitus: Status: Chronic (6) History of CVA (cerebrovascular accident): Code(s): Z86.73 - Personal history of transient ischemic attack (TIA), and cerebral infarction without residual deficits Status: Acute Plan Acute CVA Patient has history of CVA and left internal carotid artery 100% occlusion, not a candidate of surgical intervention Patient had sudden onset weakness of right leg and right facial droop. TIA versus acute stroke Patient on Eliquis, not a candidate of thrombolysis CTA neck and and head showed complete occlusion of the left internal carotid artery, 60% stenosis of the proximal right internal carotid artery Start aspirin 81 mg daily p.o., patient on Eliquis 5 mg b.i.d. p.o. Continue Crestor 10 mg daily p.o. 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 Follow-up lipid panel Further management poor neurologist recommendation History DVT Continue Eliquis 5 mg b.i.d. p.o. Hypoglycemia with diabetes Hold Lantus Continue sliding scale a.c. and q.h.s., hold metformin Diabetic diet Hypoglycemia protocol is initiated Acquired hypothyroidism Continue Synthroid 175 mcg daily p.o. Hospitalist MIPS Advance Care Plan I have confirmed that the patient's Advanced Care Plan is present, code status is documented, or surrogate decision maker is listed in patient medical record.: Yes Medication Reconciliation I have utilized all available resources to obtain, update and review the patients current medications (includes all prescriptions, OTC, herbals, cannabis, and nutritional supplements).: Yes
--- NOTE | 2024-07-29 10:48 | ADMGEN ---
This patient, Roscoe Pérez , was admitted to 3 Med Surg Room 328-01. Patient/family oriented to hospital policies and general routines including ID bracelet, bed and alarms, visiting hours, pain management, procedures, bathroom and other care routines, personal items, smoking policy, room service/diet, and visiting hours. Information on how to activate the Rapid Response Team has been discussed. Patient/Family are encouraged to report perceived risks to care and to ask questions if they do not understand what they are told or what they should do.
[2024-07-29 11:53] LABS: Glucose Point of Care 90 mg/dl (65-105)
[2024-07-29 12:01] LABS: Troponin I < 0.012 ng/mL (0.000-0.034)
--- NOTE | 2024-07-29 14:00 | WPDNEURCNPN ---
Assessment and Plan Assessment and plan (1) Brain TIA: Code(s): G45.9 - Transient cerebral ischemic attack, unspecified Status: Acute (2) Thoracic aortic aneurysm (TAA): Code(s): I71.20 - Thoracic aortic aneurysm, without rupture, unspecified Status: Chronic (3) Bilateral carotid artery disease: Code(s): I77.9 - Disorder of arteries and arterioles, unspecified Status: Acute Plan 1. Status post complete occlusion of the left internal carotid artery with no evidence of reconstitution along the entire course of left internal carotid artery documented by the CTA in the emergency room along with the moderate stenosis of the proximal right internal carotid artery approximately 60%. Raising the possibility of the TIA when he was unable to move the right side of his body at home. Patient has been taking apixaban 5mg b.i.d. along with rosuvastatin 10mg at night and also diabetic care as an underlying risk factor as well. Need to obtain the MRI of the brain, increase the rosuvastatin to40mg daily, continue the diabetic care as outlined and also obtain the MRI of the brain with further recommendations accordingly Consult date: 07/29/24 HPI: Roscoe Pérez . is a 74 year old male Admitted to the hospital through ER with chief complaint of low blood sugar and with the history that his found him in the bathroom unable to move the right side of his body and saying what is going on ,at the time his blood sugar was documented to be in 40s, he was given oral glucose and subsequently condition improved. He has ongoing history of taking 1levothyroxine 175mcg daily 2. metformin 1000mg twice a day 3. Insulin lispro according to the instructions 4. Omeprazole 20mg daily 5. Semaglutide 1.5mg subQ weekly and 6. insulin 45units subQ b.i.d. glargine. He is reportedly allergic to sulfa, has history of thoracic aortic aneurysm, bladder cancer, left carotid artery occlusion, has undergone laminectomy, partial right knee placement, left hip replacement, has history of smoking packs per day 1.5 with years smoked 10 and smoking pack years of 15 but at present former smoker. Currently alcohol intake or 2 drinks per week. Initial evaluation with blood pressure 161/80, CBC normal, BMP normal, UA abnormal, routine labs otherwise normal with creatinine clearance of 58 GFR more than 60 and routine screening for the viral infections negative, initial CT scan of the head negative for the bleed with chronic white matter changes, head and neck CTA with complete occlusion of the origin of the left internal carotid artery with no evidence of reconstitution along the entire course of the left internal carotid artery, possible moderate stenosis of the proximal right internal carotid artery about 60% for which ultrasound or MRA has been suggested. In the past he has MRI of the lumbosacral spine which was compatible with severe degenerative spondylosis, moderate thoracic spondylosis on the MRI of thoracic spine with diffuse idiopathic skeletal hyperostosis. And last echocardiogram documented in July of 2020. Review of Systems Review of Systems: All systems reviewed & are unremarkable except as noted in HPI and below PMFSH Past Medical History Medical History Cerumen impaction Dermatitis Cellulitis of arm, left Thoracic aortic aneurysm (TAA) Pulmonary embolism (07/09/23) Constipation Colon cancer screening Dysphagia History of esophageal dilatation Bladder cancer Hematuria Insulin dependent diabetes mellitus History of CVA (cerebrovascular accident) History of DVT (deep vein thrombosis) Long-term anticoagulation Pneumonia due to 2019 novel coronavirus Nephrolithiasis Obstructive sleep apnea Fever Essential hypertension Gastroesophageal reflux disease without esophagitis History of DVT in adulthood Hyperlipidemia Hypothyroidism Left carotid artery occlusion Type 2 diabetes mellitus without complication, without long-term current use of insulin Surgical History Surgical History Hx of laminectomy History of biopsy of bladder H/O lithotripsy History of knee replacement Partial right knee replacement History of cataract extraction Status post hip replacement Left side Status post placement of ureteral stent Right side Family History Family History Father Cancer Mother Cancer Grandparent Diabetes mellitus Social History Social History Social History: The patient lives with his sleeve in girlfriend. The patient quit smoking 40+ years ago. The patient has 2 children. His son is the durable power workers compensation attorney for healthcare. The patient is retired from [employer]. 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 Patient occasionally has a beer on the weekend. Maybe 3 or 4 beers a week. Patient denies any marijuana or illicit drugs. Smoking packs per day: 1.5 Smoking cigarettes per day: 30.0 Years smoked: 10 Smoking pack-years: 15.00 Smoking status: Former smoker Second hand tobacco smoke exposure: No Alcohol intake: current Drinks per week: 3 Alcohol use details: BEERS Substance use: never Substance use type: does not use Do You Feel Safe in your Home?: Yes Lack of Transportation: No Lack of Food: Never True Current Housing: I Have Housing Concerned About Future Housing: No Difficulty Paying Gas/Electric Bills: No Difficulty Paying for Meds: No Currently Unemployed: No Education: High School Diploma/GED Difficulty w/ Childcare or Family Care: No Living arrangements: alone Occupation/Education: retired Additional occupation/education comments: [employer]. Gender identity (if verbalized by the patient): Male Sexual Orientation (if Verbalized by the Patient): Straight or Heterosexual Spiritual care concerns: No Meds Home Medications and Allergies Home Medications ?Medication ?Instructions ?Recorded ?Confirmed ?Type levothyroxine 175 mcg tablet 175 mcg PO QAM 05/28/19 07/29/24 History metformin 500 mg tablet,extended 1,000 mg PO BID 05/28/19 07/29/24 History release 24hr (osmotic) insulin lispro 100 unit/mL See Rx Instructions .Route .COMPLEX 05/29/19 07/29/24 History subcutaneous pen (Humalog KwikPen (U-100) Insulin) mecobalamin (vitamin B12) 1,000 1,000 mcg sublingual QAM 09/16/20 07/29/24 History mcg disintegrating tablet,sublingual rjosdxws-oall-daqcf acid 400 1 tablet PO DAILY 02/13/22 07/29/24 History mcg-lycopene 600 mcg-ginkgo 120 mg tablet omeprazole 20 mg capsule,delayed 20 mg PO DAILY 06/08/22 07/29/24 History release semaglutide 1 mg/dose (4 mg/3 mL) 1.5 mg subcut WEEKLY 04/12/23 07/29/24 History subcutaneous pen injector apixaban 5 mg tablet (Eliquis) 5 mg PO BID #180 tabs 02/12/24 07/29/24 Rx insulin glargine 100 unit/mL (3 45 unit subcut .COMPLEX 03/07/24 07/29/24 History mL) subcutaneous pen (Lantus Solostar U-100 Insulin) atenolol 50 mg tablet 50 mg PO QAM #90 tabs 06/05/24 07/29/24 Rx tramadol 50 mg tablet 50 mg PO Q6H PRN pain #120 tabs 07/12/24 07/29/24 Rx fenofibrate micronized 200 mg See Rx Instructions .Route 07/16/24 07/29/24 Rx capsule .COMPLEX #90 caps celecoxib 200 mg capsule 200 mg PO BID #200 caps 07/17/24 07/29/24 Rx rosuvastatin 10 mg tablet 10 mg PO HS #90 tabs 07/20/24 07/29/24 Rx gabapentin 300 mg capsule 300 mg PO BID #60 caps 07/21/24 07/29/24 Rx Allergies Allergy/AdvReac Type Severity Reaction Status Date / Time sulfamethoxazole (From Allergy Mild Rash Verified 07/11/24 14:21 Bactrim) trimethoprim (From Bactrim) Allergy Mild Rash Verified 07/11/24 14:21 Vital Signs Vital Signs - 24 hr 07/29/24 03:00 07/29/24 03:08 07/29/24 03:09 Temperature 36.7 C Pulse Rate 80 78 80 Respiratory Rate 15 19 Blood Pressure 161/80 H 161/80 H Pulse Oximetry 99 100 07/29/24 05:52 07/29/24 07:06 07/29/24 07:27 Temperature Pulse Rate 90 75 78 Respiratory Rate 15 16 17 Blood Pressure 154/87 H 157/85 H Pulse Oximetry 98 98 96 07/29/24 07:30 07/29/24 08:00 07/29/24 08:12 Temperature Pulse Rate 76 74 77 Respiratory Rate 18 15 17 Blood Pressure 137/80 Pulse Oximetry 96 96 96 07/29/24 08:15 07/29/24 08:15 07/29/24 08:16 Temperature Pulse Rate 76 78 79 Respiratory Rate 16 14 15 Blood Pressure 137/80 154/77 H Pulse Oximetry 96 96 95 07/29/24 08:30 07/29/24 08:45 07/29/24 09:00 Temperature Pulse Rate 75 73 73 Respiratory Rate 20 18 14 Blood Pressure Pulse Oximetry 97 97 97 07/29/24 09:01 07/29/24 09:13 07/29/24 09:15 Temperature Pulse Rate 76 75 74 Respiratory Rate 13 19 17 Blood Pressure 161/79 H 161/79 H Pulse Oximetry 96 98 97 07/29/24 09:30 07/29/24 09:45 07/29/24 10:30 Temperature Pulse Rate 71 74 70 Respiratory Rate 16 12 18 Blood Pressure 155/72 H Pulse Oximetry 97 96 98 Exam Narrative: Exam revealed him to be awake alert cooperative in no obvious acute distress his family member happened to be in the room. Head was normocephalic with no cranial bruit. Ear nose throat examination was normal. Neck is supple with no restriction of the range of motion and soft cervical bruit heart regular with no murmur lungs clear to auscultation abdomen soft non tender normal bowel sounds, neurologically he is awake alert able to follow the verbal commands appropriately and oriented vital left with intact recent and remote memory, pupils round regular feels the vision full, extraocular movements are full with end point nystagmus, facial sensation intact face symmetrical tongue midline with no fasciculation motor examination revealed him to have no drift of 1 side or other side reflexes are brisk plantars are downgoing there is no evidence of gross cerebellar deficit. Results Labs 07/29/24 05:44 07/29/24 05:44 Labs: Short CBC 07/29/24 Range/Units 05:44 WBC 5.4 (4.5-10.0) K/mm3 Hgb 14.7 (14.0-18.0) g/dL Hct 43.8 (42.0-52.0) % Plt Count 226 (150-375) k/mm3 BMP 07/29/24 07/29/24 05:01 05:44 Sodium 139 Potassium 4.0 Chloride 104 Carbon Dioxide 26 BUN 16 Creatinine 1.10 0.89 Glucose 134 H Calcium 9.9 Cardiac Enzymes 07/29/24 07/29/24 07/29/24 Range/Units 05:44 05:44 11:28 Troponin I < 0.012 Cancelled < 0.012 (0.000-0.034) ng/mL Liver Function 07/29/24 Range/Units 05:44 Total Bilirubin 0.5 (0.2-1.3) mg/dL AST 27 (17-59) U/L ALT 22 (6-50) U/L Alkaline Phosphatase 73 (38-126) U/L Albumin 4.1 (3.5-5.1) g/dL Urine 07/29/24 Range/Units 04:29 Urine Color [place] H (Yellow) Urine Appearance Cloudy H (Clear) Urine pH 5.5 (5.0-9.0) Ur Specific [place] 1.017 (1.001-1.035) Urine Protein 2+ H (Negative) mg/dL Urine Glucose (UA) Negative (Negative) mg/dL
[2024-07-29 16:37] LABS: Glucose Point of Care 145 mg/dl (65-105)
[2024-07-29] MEDS: GABAPENTIN 300 MG CAPSULE PO (17:33)
[2024-07-29] MEDS: APIXABAN 5 MG TABLET PO (17:33)
[2024-07-29] MEDS: CELECOXIB 200 MG CAPSULE PO (17:37)
[2024-07-29] MEDS: ROSUVASTATIN 10 MG TABLET PO (20:25)
[2024-07-29 21:05] LABS: Glucose Point of Care 173 mg/dl (65-105)
[2024-07-30] VITALS (8 sets, daily range): BP systolic 147–159; BP diastolic 78–89; PULSE 61–101; RESP 14–18; TEMP 36.4–36.6; O2SAT 97–99
[2024-07-30] MEDS: LEVOTHYROXINE SODIUM 75 MCG TABLET PO (05:47)
[2024-07-30] MEDS: LEVOTHYROXINE SODIUM 100 MCG TABLET PO (05:47)
[2024-07-30 07:30] LABS: Glucose Point of Care 170 mg/dl (65-105)
[2024-07-30] MEDS: PANTOPRAZOLE 40 MG TABLET PO (08:26)
[2024-07-30] MEDS: APIXABAN 5 MG TABLET PO ×2 (08:27→17:31)
[2024-07-30] MEDS: CELECOXIB 200 MG CAPSULE PO ×2 (08:27→17:31)
[2024-07-30] MEDS: FENOFIBRATE 160 MG TABLET PO (08:27)
[2024-07-30] MEDS: GABAPENTIN 300 MG CAPSULE PO ×2 (08:27→17:31)
[2024-07-30] MEDS: ASPIRIN 81 MG ENTERIC TABLET PO (08:27)
[2024-07-30] MEDS: CYANOCOBALAMIN 1,000 MCG TABLET 1000 MCG PO (08:27)
[2024-07-30 11:38] LABS: Glucose Point of Care 216 mg/dl (65-105)
[2024-07-30] MEDS: INSULIN ASPART (*BKC) 100 UNITS/ML SUB-Q ×2 (11:47→21:21)
--- NOTE | 2024-07-30 12:43 | P.PNIM_ITS ---
Progress Note: A&P Assessment and Plan (1) Acute CVA (cerebrovascular accident): Code(s): I63.9 - Cerebral infarction, unspecified Status: Acute (2) Hypoglycemia associated with diabetes: Code(s): E11.649 - Type 2 diabetes mellitus with hypoglycemia without coma Status: Acute (3) CAD (coronary artery disease): Code(s): I25.10 - Atherosclerotic heart disease of [place] coronary artery without angina pectoris Status: Chronic (4) Essential hypertension: Code(s): I10 - Essential (primary) hypertension Status: Acute (5) Insulin dependent diabetes mellitus: Status: Chronic (6) History of CVA (cerebrovascular accident): Code(s): Z86.73 - Personal history of transient ischemic attack (TIA), and cerebral infarction without residual deficits Status: Acute Plan Acute CVA Patient has history of CVA and left internal carotid artery 100% occlusion, not a candidate of surgical intervention Patient had sudden onset weakness of right leg and right facial droop. TIA versus acute stroke Patient on Eliquis, not a candidate of thrombolysis CTA neck and and head showed complete occlusion of the left internal carotid artery, 60% stenosis of the proximal right internal carotid artery Start aspirin 81 mg daily p.o., patient on Eliquis 5 mg b.i.d. p.o. Continue Crestor 10 mg daily p.o. Follow-up BP panel Pending brain MRI, echocardiogram with bubble study, Neuro check Four precaution Consult PT OT Continue checkerer hand: No significant arrhythmia. No new focal deficit Essential hypertension Hold hypertension medication during hypertension permission, except systolic above 220 or diastolic above 120 Carotid artery stenosis CTA neck and and head showed complete occlusion of the left internal carotid artery, 60% stenosis of the proximal right internal carotid artery Continue Crestor 10 mg p.o. Follow-up lipid panel Further management poor neurologist recommendation History DVT Continue Eliquis 5 mg b.i.d. p.o. Hypoglycemia with diabetes Hold Lantus Continue sliding scale a.c. and q.h.s., hold metformin Diabetic diet Hypoglycemia protocol is initiated Glucose is well controlled in the target, continue to hold long-acting insulin 07/30 Acquired hypothyroidism Continue Synthroid 175 mcg daily p.o. Subjective Date/time seen: 07/30/24 12:43 Interval history: I saw and examined the patient in presents of patient's family. Patient denies weakness, vision change, abdomen sensation. Denies lightheadedness, diaphoresis. Labs reviewed, glucose is well controlled, Exam Narrative: GENERAL: Pleasant, in no acute distress. Well-nourished. - EYES: EOMI. Anicteric. - HENT: Moist mucous membranes. - LUNGS: Clear to auscultation bilateral ly, no wheezing, rhonchi, or rales. - CARDIOVASCULAR: Regular rate and rhyth m. No murmur. No JVD. - ABDOMEN: Soft, non-tender and non-dist ended. No palpable masses. - EXTREMITIES: No edema. Peripheral puls es 2+. Non-tender. - NEUROLOGIC: No focal neurological defi cits. CN II-XII grossly intact. - PSYCHIATRIC: Awake, Alert and oriented x 3. Appropriate mood and affect. - SKIN: No rashes or lesions. Warm. - LYMPH: No cervical lymphadenopathy. Objective Data Vital Signs Vital Signs: Vital Signs - 24 hr 07/29/24 14:00 07/29/24 16:52 07/29/24 20:00 Temperature 98.4 F Pulse Rate 78 75 Respiratory Rate 18 Blood Pressure 143/70 H Pulse Oximetry 96 Oxygen Delivery Room Air 07/29/24 20:30 07/29/24 20:35 07/29/24 23:59 Temperature 97.2 F L Pulse Rate 74 67 Respiratory Rate 18 Blood Pressure 171/77 H 140/88 Pulse Oximetry 95 Oxygen Delivery 07/30/24 04:00 07/30/24 05:21 07/30/24 08:00 Temperature 97.6 F Pulse Rate 61 77 88 Respiratory Rate 14 Blood Pressure 156/78 H Pulse Oximetry 99 Oxygen Delivery 07/30/24 08:25 Temperature Pulse Rate Respiratory Rate Blood Pressure Pulse Oximetry Oxygen Delivery Room Air Intake/Output Intake/Output: Intake & Output 07/27/24 07/28/24 07/29/24 07/30/24 23:59 23:59 23:59 23:59 Intake Total 530 1144 Output Total 500 Balance 30 1144 Meds/Results Medications: Active Medications Generic Name Dose Route Start Last Admin Trade Name Freq PRN Reason Stop Dose Admin Apixaban 5 mg 07/29/24 17:00 07/30/24 08:27 Apixaban 5 Mg Tablet PO 5 mg BID LI Administration Aspirin 81 mg 07/30/24 09:00 07/30/24 08:27 Aspirin 81 Mg Enteric Tablet PO 81 mg QAM LI Administration Celecoxib 200 mg 07/29/24 17:00 07/30/24 08:27 Celecoxib 200 Mg Capsule PO 200 mg BID LI Administration Cyanocobalamin 1,000 mcg 07/30/24 09:00 07/30/24 08:27 Cyanocobalamin 1,000 Mcg Tablet PO 1,000 mcg QAM LI Administration Dextrose 12.5 gm 07/29/24 14:38 Dextrose 50% 25 Gm/50 Ml Syringe IV PUSH PRN PRN Hypoglycemia Protocol Fenofibrate 160 mg 07/30/24 09:00 07/30/24 08:27 Fenofibrate 160 Mg Tablet PO 160 mg DAILY LI Administration Gabapentin 300 mg 07/29/24 17:00 07/30/24 08:27 Gabapentin 300 Mg Capsule PO 300 mg BID LI Administration Glucagon 1 mg 07/29/24 14:38 Glucagon For Inj 1 Mg Vial IM PRN PRN Hypoglycemia Protocol Glucose 15 gm 07/29/24 14:38 Glucose Oral Gel 15 Gm Of Glucse In 37.5 Gm Tube PO PRN PRN Hypoglycemia Protocol Ceftriaxone Sodium 1 gm in 50 mls @ 100 mls/hr 07/30/24 06:00 07/30/24 05:47 Rocephin 1 Gm/Ns 50 Ml IVPB 100 mls/hr Q24H LI Administration Dextrose 1,000 mls @ 100 mls/hr 07/29/24 14:38 Dextrose 5% 1,000 Ml IVPB PRN PRN Hypoglycemia Protocol Insulin Aspart 2 - 4 units 07/29/24 21:00 07/29/24 23:17 Insulin Aspart (*Bkc) 100 Units/Ml SUB-Q Not Given HS LI Protocol Insulin Aspart 4 - 8 units 07/29/24 17:00 07/30/24 11:47 Insulin Aspart (*Bkc) 100 Units/Ml SUB-Q 4 units TIDWM LI Administration Protocol Levothyroxine Sodium 75 mcg 07/30/24 06:30 07/30/24 05:47 Levothyroxine Sodium 75 Mcg Tablet PO 75 mcg DAILY@0630 LI Administration Levothyroxine Sodium 100 mcg 07/30/24 06:30 07/30/24 05:47 Levothyroxine Sodium 100 Mcg Tablet PO 100 mcg DAILY@0630 [facility] Administration Miscellaneous Information 0 each 07/29/24 00:01 Semaglutide Is Nonformulary - Can Patient Use From Home? XX 08/28/24 00:00 CLARIFY LI Non-Formulary Medication 1.5 mg 08/05/24 09:00 Semaglutide SUB-Q 09/04/24 08:59 WEEKLY LI Pantoprazole Sodium 40 mg 07/30/24 09:00 07/30/24 08:26 Pantoprazole 40 Mg Tablet PO 40 mg QAM LI Administration Perflutren Lipid Microsphere 0 ml 07/29/24 14:06 Perflutren Lipid Microspheres 1.5 Ml Vial Diluted To 10 Ml Total Volume IV PUSH 08/01/24 14:06 ONCE PRN adequate visualization Protocol Rosuvastatin Calcium 10 mg 07/29/24 21:00 07/29/24 20:25 Rosuvastatin 10 Mg Tablet PO 10 mg HS LI Administration Tramadol HCl 50 mg 07/29/24 14:15 Tramadol Hcl (*Crx) 50 Mg Tablet PO Q6H PRN Pain Rated 4-6 Radiology Results: ITS Impressions Head CT 07/29/24 06:49 Impression: No intracranial hemorrhage, mass, or acute infarct. Atrophy and chronic white matter changes, as above. Head/Neck CTA 07/29/24 06:56 Impression: Complete occlusion of the origin of the left internal carotid artery, with no evidence for reconstitution along the entire course of the left internal carotid artery. Probable moderate stenosis at the proximal right internal carotid artery, probably approximately 60 %. Consider carotid duplex ultrasound or MRA as indicated to further evaluate. Chest X-Ray 07/29/24 07:04 Impression: Clear lungs. Stable Mediport. Renal Ultrasound 07/29/24 17:49 IMPRESSION: Unremarkable renal sonogram findings. Labs Labs: Laboratory Results - last 24 hr 07/29/24 07/29/24 07/30/24 16:33 20:32 07:26 POC Capillary Glucose 145 H 173 H 170 H 07/30/24 11:34 POC Capillary Glucose 216 H
[2024-07-30] MEDS: LORazepam INJ (*CRX) 2 MG/ML VIAL 0.5 MG IV PUSH (16:17)
[2024-07-30 17:17] LABS: Glucose Point of Care 106 mg/dl (65-105)
[2024-07-30 21:10] LABS: Glucose Point of Care 221 mg/dl (65-105)
[2024-07-30] MEDS: ROSUVASTATIN 10 MG TABLET PO (21:24)
[2024-07-31] VITALS (7 sets, daily range): BP systolic 144–147; BP diastolic 79–84; PULSE 68–111; RESP 16–18; TEMP 36.5–36.6; O2SAT 98–99
[2024-07-31] MEDS: LEVOTHYROXINE SODIUM 75 MCG TABLET PO (05:48)
[2024-07-31] MEDS: LEVOTHYROXINE SODIUM 100 MCG TABLET PO (05:48)
[2024-07-31 07:36] LABS: Glucose Point of Care 153 mg/dl (65-105)
[2024-07-31] MEDS: PANTOPRAZOLE 40 MG TABLET PO (08:48)
[2024-07-31] MEDS: CYANOCOBALAMIN 1,000 MCG TABLET 1000 MCG PO (08:48)
[2024-07-31] MEDS: GABAPENTIN 300 MG CAPSULE PO (08:48)
[2024-07-31] MEDS: APIXABAN 5 MG TABLET PO (08:48)
[2024-07-31] MEDS: CELECOXIB 200 MG CAPSULE PO (08:48)
[2024-07-31] MEDS: FENOFIBRATE 160 MG TABLET PO (08:48)
[2024-07-31] MEDS: ASPIRIN 81 MG ENTERIC TABLET PO (08:48)
[2024-07-31 11:31] LABS: Glucose Point of Care 274 mg/dl (65-105)
[2024-07-31] MEDS: INSULIN ASPART (*BKC) 100 UNITS/ML SUB-Q (11:54)
--- NOTE | 2024-07-31 13:17 | P.PNIM_ITS ---
Progress Note: A&P Assessment and Plan (1) Acute CVA (cerebrovascular accident): Code(s): I63.9 - Cerebral infarction, unspecified Status: Acute (2) Hypoglycemia associated with diabetes: Code(s): E11.649 - Type 2 diabetes mellitus with hypoglycemia without coma Status: Acute (3) CAD (coronary artery disease): Code(s): I25.10 - Atherosclerotic heart disease of [place] coronary artery without angina pectoris Status: Chronic (4) Essential hypertension: Code(s): I10 - Essential (primary) hypertension Status: Acute (5) Insulin dependent diabetes mellitus: Status: Chronic (6) History of CVA (cerebrovascular accident): Code(s): Z86.73 - Personal history of transient ischemic attack (TIA), and cerebral infarction without residual deficits Status: Acute Plan Acute CVA Patient has history of CVA and left internal carotid artery 100% occlusion, not a candidate of surgical intervention Patient had sudden onset weakness of right leg and right facial droop. TIA versus acute stroke Patient on Eliquis, not a candidate of thrombolysis CTA neck and and head showed complete occlusion of the left internal carotid artery, 60% stenosis of the proximal right internal carotid artery Start aspirin 81 mg daily p.o., patient on Eliquis 5 mg b.i.d. p.o. Continue Crestor 10 mg daily p.o. Follow-up BP panel Pending brain MRI : No acute infarct, intracranial hemorrhage, or mass lesion. Small chronic bilateral basal ganglia lacunar infarcts. echocardiogram with bubble study 1. Complete two-dimensional, color flow and Doppler transthoracic echocardiogram is performed. 2. Left ventricular chamber dimension is normal. 3. Left ventricular systolic function is normal, estimated at 60-65%. 4. There is mild concentric increased left ventricular wall thickness. 5. The left ventricular diastolic function is grade I diastolic dysfunction. 6. E/e' 10 is mildly elevated. 7. senior geotechnical engineer reported attempting bubble study multiple times but could not obtain., Neuro check Four precaution Consult PT OT Continue vehicle monitor technician: No significant arrhythmia. No new focal deficit Essential hypertension Hold hypertension medication during hypertension permission, except systolic above 220 or diastolic above 120 Carotid artery stenosis CTA neck and and head showed complete occlusion of the left internal carotid artery, 60% stenosis of the proximal right internal carotid artery Continue Crestor 10 mg p.o. Follow-up lipid panel Further management poor neurologist recommendation History DVT Continue Eliquis 5 mg b.i.d. p.o. Hypoglycemia with diabetes Hold Lantus Continue sliding scale a.c. and q.h.s., hold metformin Diabetic diet Hypoglycemia protocol is initiated Glucose is well controlled in the target, continue to hold long-acting insulin 07/30 Acquired hypothyroidism Continue Synthroid 175 mcg daily p.o. Subjective Date/time seen: 07/31/24 13:17 Interval history: I saw and examined the patient in presents of patient's family. Patient denies weakness, vision change, abdomen sensation. Denies lightheadedness, diaphoresis. Exam Narrative: GENERAL: Pleasant, in no acute distress. Well-nourished. - EYES: EOMI. Anicteric. - HENT: Moist mucous membranes. - LUNGS: Clear to auscultation bilateral ly, no wheezing, rhonchi, or rales. - CARDIOVASCULAR: Regular rate and rhyth m. No murmur. No JVD. - ABDOMEN: Soft, non-tender and non-dist ended. No palpable masses. - EXTREMITIES: No edema. Peripheral puls es 2+. Non-tender. - NEUROLOGIC: No focal neurological defi cits. CN II-XII grossly intact. - PSYCHIATRIC: Awake, Alert and oriented x 3. Appropriate mood and affect. - SKIN: No rashes or lesions. Warm. - LYMPH: No cervical lymphadenopathy. Objective Data Vital Signs Vital Signs: Vital Signs - 24 hr 07/30/24 14:00 07/30/24 16:00 07/30/24 20:00 Temperature 97.9 F Pulse Rate 82 72 76 Respiratory Rate 18 Blood Pressure 147/81 H Pulse Oximetry 97 Oxygen Delivery 07/30/24 20:46 07/31/24 00:00 07/31/24 04:00 Temperature 97.6 F Pulse Rate 98 111 H 71 Respiratory Rate 16 Blood Pressure 159/89 H Pulse Oximetry 98 Oxygen Delivery 07/31/24 05:03 07/31/24 07:44 07/31/24 08:00 Temperature 97.9 F Pulse Rate 68 99 Respiratory Rate 16 Blood Pressure 147/79 H Pulse Oximetry 99 99 Oxygen Delivery Room Air 07/31/24 12:00 Temperature Pulse Rate 109 H Respiratory Rate Blood Pressure Pulse Oximetry Oxygen Delivery Intake/Output Intake/Output: Intake & Output 07/28/24 07/29/24 07/30/2407/31/25 23:59 23:59 23:59 23:59 Intake Total 530 1434 1196 Output Total 500 Balance 30 1434 1196 Meds/Results Medications: Active Medications Generic Name Dose Route Start Last Admin Trade Name Freq PRN Reason Stop Dose Admin Apixaban 5 mg 07/29/24 17:00 07/31/24 08:48 Apixaban 5 Mg Tablet PO 5 mg BID LI Administration Aspirin 81 mg 07/30/24 09:00 07/31/24 08:48 Aspirin 81 Mg Enteric Tablet PO 81 mg QAM LI Administration Celecoxib 200 mg 07/29/24 17:00 07/31/24 08:48 Celecoxib 200 Mg Capsule PO 200 mg BID LI Administration Cyanocobalamin 1,000 mcg 07/30/24 09:00 07/31/24 08:48 Cyanocobalamin 1,000 Mcg Tablet PO 1,000 mcg QAM LI Administration Dextrose 12.5 gm 07/29/24 14:38 Dextrose 50% 25 Gm/50 Ml Syringe IV PUSH PRN PRN Hypoglycemia Protocol Fenofibrate 160 mg 07/30/24 09:00 07/31/24 08:48 Fenofibrate 160 Mg Tablet PO 160 mg DAILY LI Administration Gabapentin 300 mg 07/29/24 17:00 07/31/24 08:48 Gabapentin 300 Mg Capsule PO 300 mg BID LI Administration Glucagon 1 mg 07/29/24 14:38 Glucagon For Inj 1 Mg Vial IM PRN PRN Hypoglycemia Protocol Glucose 15 gm 07/29/24 14:38 Glucose Oral Gel 15 Gm Of Glucse In 37.5 Gm Tube PO PRN PRN Hypoglycemia Protocol Ceftriaxone Sodium 1 gm in 50 mls @ 100 mls/hr 07/30/24 06:00 07/31/24 06:18 Rocephin 1 Gm/Ns 50 Ml IVPB Infused Q24H LI Infusion Dextrose 1,000 mls @ 100 mls/hr 07/29/24 14:38 Dextrose 5% 1,000 Ml IVPB PRN PRN Hypoglycemia Protocol Insulin Aspart 2 - 4 units 07/29/24 21:00 07/30/24 21:21 Insulin Aspart (*Bkc) 100 Units/Ml SUB-Q 2 units HS LI Administration Protocol Insulin Aspart 4 - 8 units 07/29/24 17:00 07/31/24 11:54 Insulin Aspart (*Bkc) 100 Units/Ml SUB-Q 5 units TIDWM LI Administration Protocol Levothyroxine Sodium 75 mcg 07/30/24 06:30 07/31/24 05:48 Levothyroxine Sodium 75 Mcg Tablet PO 75 mcg DAILY@0630 LI Administration Levothyroxine Sodium 100 mcg 07/30/24 06:30 07/31/24 05:48 Levothyroxine Sodium 100 Mcg Tablet PO 100 mcg DAILY@0630 LI Administration Miscellaneous Information 0 each 07/29/24 00:01 07/31/24 07:56 Semaglutide Is Nonformulary - Can Patient Use From Home? XX 08/28/24 00:00 Not Given CLARIFY LI Non-Formulary Medication 1.5 mg 08/05/24 09:00 Semaglutide SUB-Q 09/04/24 08:59 WEEKLY LI Pantoprazole Sodium 40 mg 07/30/24 09:00 07/31/24 08:48 Pantoprazole 40 Mg Tablet PO 40 mg QAM LI Administration Perflutren Lipid Microsphere 0 ml 07/29/24 14:06 Perflutren Lipid Microspheres 1.5 Ml Vial Diluted To 10 Ml Total Volume IV PUSH 08/01/24 14:06 ONCE PRN adequate visualization Protocol Rosuvastatin Calcium 10 mg 07/29/24 21:00 07/30/24 21:24 Rosuvastatin 10 Mg Tablet PO 10 mg HS LI Administration Tramadol HCl 50 mg 07/29/24 14:15 Tramadol Hcl (*Crx) 50 Mg Tablet PO Q6H PRN Pain Rated 4-6 Radiology Results: ITS Impressions Head CT 07/29/24 06:49 Impression: No intracranial hemorrhage, mass, or acute infarct. Atrophy and chronic white matter changes, as above. Head/Neck CTA 07/29/24 06:56 Impression: Complete occlusion of the origin of the left internal carotid artery, with no evidence for reconstitution along the entire course of the left internal carotid artery. Probable moderate stenosis at the proximal right internal carotid artery, probably approximately 60 %. Consider carotid duplex ultrasound or MRA as octavio cated to further evaluate. Chest X-Ray 07/29/24 07:04 Impression: Clear lungs. Stable Mediport. Renal Ultrasound 07/29/24 17:49 IMPRESSION: Unremarkable renal sonogram findings. Brain MRI 07/31/24 06:40 IMPRESSION: No acute infarct, intracranial hemorrhage, or mass lesion. Small chronic bilateral basal ganglia lacunar infarcts. Advanced chronic microvascular ischemic change and moderate generalized atrophy. Labs Labs: Laboratory Results - last 24 hr 07/30/24 07/30/24 07/31/24 17:12 20:56 07:33 POC Capillary Glucose 106 H 221 H 153 H 07/31/24 11:28 POC Capillary Glucose 274 H
--- NOTE | 2024-07-31 13:20 | P.DS_ITS ---
DS: Admitting Diagnosis Discharge Date 07/31 Admitting Diagnosis (1) Acute CVA (cerebrovascular accident): Code(s): I63.9 - Cerebral infarction, unspecified Status: Acute (2) Hypoglycemia associated with diabetes: Code(s): E11.649 - Type 2 diabetes mellitus with hypoglycemia without coma Status: Acute (3) CAD (coronary artery disease): Code(s): I25.10 - Atherosclerotic heart disease of [place] coronary artery without angina pectoris Status: Chronic (4) Essential hypertension: Code(s): I10 - Essential (primary) hypertension Status: Acute (5) Insulin dependent diabetes mellitus: Status: Chronic (6) History of CVA (cerebrovascular accident): Code(s): Z86.73 - Personal history of transient ischemic attack (TIA), and cerebral infarction without residual deficits Status: Acute DS: Discharge Diagnosis Discharge Diagnosis (1) Acute CVA (cerebrovascular accident): Code(s): I63.9 - Cerebral infarction, unspecified Status: Acute (2) Hypoglycemia associated with diabetes: Code(s): E11.649 - Type 2 diabetes mellitus with hypoglycemia without coma Status: Acute (3) CAD (coronary artery disease): Code(s): I25.10 - Atherosclerotic heart disease of [place] coronary artery without angina pectoris Status: Chronic (4) Essential hypertension: Code(s): I10 - Essential (primary) hypertension Status: Acute (5) Insulin dependent diabetes mellitus: Status: Chronic (6) History of CVA (cerebrovascular accident): Code(s): Z86.73 - Personal history of transient ischemic attack (TIA), and cerebral infarction without residual deficits Status: Acute DS: Summary Hospital Course Hospital Course: 74 years old gentleman with history of diabetes on insulin, hypothyroidism, CVA, DVT, LSA, hypertension, GERD, hyperlipidemia, left carotid artery occlusion present ED with a chief complaint of right sided weakness. Patient had a sudden onset of right lower extremity weakness about 1:00 a.m. in the night today. Patient denied headache, dizziness, palpitation, chest pain. EMS was called, patient was found have hypoglycemia. Blood glucose about 40, patient was given oral glucose. Patient was brought to ED for evaluation treatment. In the ED, patient had episode of right facial droop and slurred speech. Patient also had blurred vision of right eye. Patient has history of stroke and left carotid artery 100% occlusion, not candidate for surgical procedure. Patient denied fever, chills, cough, chest pain, abdomen pain, nausea vomiting diarrhea dysuria fever or chills. When I saw exam patient in patient room, patient's strength has recovered, slurred speech resolved, patient denies blurred vision double vision Upon arrival to ED, patient afebrile blood pressure stable, pulse ox 99 on room air, CBC remarkable Chemistry unremarkable, glucose 134, UA shows pyuria, hematuria CTA neck and and head showed complete occlusion of the left internal carotid artery, 60% stenosis of the proximal right internal carotid artery. Patient is on Eliquis, not candidates for thrombolysis treatment Patient received ceftriaxone in the ED ER physician also consulted neurologist, we admit patient for further evaluation and management The following med issues have been addressed during hospitalization Acute CVA Patient has history of CVA and left internal carotid artery 100% occlusion, not a candidate of surgical intervention Patient had sudden onset weakness of right leg and right facial droop. TIA versus acute stroke Patient on Eliquis, not a candidate of thrombolysis CTA neck and and head showed complete occlusion of the left internal carotid artery, 60% stenosis of the proximal right internal carotid artery Start aspirin 81 mg daily p.o., patient on Eliquis 5 mg b.i.d. p.o. Continue Crestor 10 mg daily p.o. Follow-up BP panel Pending brain MRI : No acute infarct, intracranial hemorrhage, or mass lesion. Small chronic bilateral basal ganglia lacunar infarcts. echocardiogram with bubble study 1. Complete two-dimensional, color flow and Doppler transthoracic echocardiogram is performed. 2. Left ventricular chamber dimension is normal. 3. Left ventricular systolic function is normal, estimated at 60-65%. 4. There is mild concentric increased left ventricular wall thickness. 5. The left ventricular diastolic function is grade I diastolic dysfunction. 6. E/e' 10 is mildly elevated. 7. technology program manager reported attempting bubble study multiple times but could not obtain., Neuro check Four precaution Consult PT OT Continue secured entrance monitor: No significant arrhythmia. No new focal deficit Continue aspirin 81 mg daily p.o., Crestor 10 mg daily p.o., Eliquis 5 mg b.i.d. p.o. per neurologist recommendation Essential hypertension Hold hypertension medication during hypertension permission, except systolic above 220 or diastolic above 120 Carotid artery stenosis CTA neck and and head showed complete occlusion of the left internal carotid artery, 60% stenosis of the proximal right internal carotid artery Continue Crestor 10 mg p.o. Follow-up lipid panel Continue aspirin and Plavix per neurologist recommendation History DVT Continue Eliquis 5 mg b.i.d. p.o. Hypoglycemia with diabetes Hold Lantus Continue sliding scale a.c. and q.h.s., hold metformin Diabetic diet Hypoglycemia protocol is initiated Glucose is well controlled in the target, continue to hold long-acting insulin 07/30 Acquired hypothyroidism Continue Synthroid 175 mcg daily p.o. Time Spent with Patient Time attestation: Total time spent providing and/or coordinating discharge services: Exam Narrative: GENERAL: Pleasant, in no acute distress. Well-nourished. - EYES: EOMI. Anicteric. - HENT: Moist mucous membranes. - LUNGS: Clear to auscultation bilateral ly, no wheezing, rhonchi, or rales. - CARDIOVASCULAR: Regular rate and rhyth m. No murmur. No JVD. - ABDOMEN: Soft, non-tender and non-dist ended. No palpable masses. - EXTREMITIES: No edema. Peripheral puls es 2+. Non-tender. - NEUROLOGIC: No focal neurological defi cits. CN II-XII grossly intact. - PSYCHIATRIC: Awake, Alert and oriented x 3. Appropriate mood and affect. - SKIN: No rashes or lesions. Warm. - LYMPH: No cervical lymphadenopathy. DS: Data Data Completed and Pending Labs on day of discharge: Labs from last 24 hours 07/31/24 07/31/24 07/30/24 11:28 07:33 20:56 POC Capillary Glucose 274 H 153 H 221 H 07/30/24 17:12 POC Capillary Glucose 106 H Discharge Plan Discharge Attending physician on discharge: Roselia Villasenor Consulting providers: Evan Loo Discharging Clinician: Roselia Villasenor Anticipated Discharge Date/Time: 07/31/24 13:24 Patient Disposition: Home, Self-Care Activity: as tolerated Diet: as tolerated and heart healthy Patient Instructions: Antibiotic Form, Safe Use of Anticoagulants (DC) Patient Language: Thai Stand Alone Forms: General Discharge Information Follow-up/Referrals: Neena Koch MD [Physician] - 4 Weeks Larry Morel MD [Primary Care Provider] - (Patient needs to see PCP in 1 week) Discharge Medications: New aspirin 81 mg Tablet,Delayed Release (Dr/Ec) 81 mg PO QAM Qty: 30 0RF insulin aspart U-100 [Novolog U-100 Insulin aspart] 100 unit/mL Solution 2 - 4 unit subcut HS Qty: 10 0RF Protocol: Insulin Corrective High-Dose Condition: glucose < 70 mg/dl Dose/Route: Follow hypoglycemia order Condition: glucose 70-200 mg/dl Dose/Route: No additional insulin Condition: glucose 201-250 mg/dl Dose/Route: 2 units sub-Q Condition: glucose 251-300 mg/dl Dose/Route: 2 units sub-Q Condition: glucose 301-350 mg/dl Dose/Route: 3 units sub-Q Condition: glucose 351-400 mg/dl Dose/Route: 4 units sub-Q Condition: glucose > 400 mg/dl Dose/Route: Call Rx Instructions: Instruction glucose < 70 mg/dl Follow hypoglycemia order glucose 70-200 mg/dl No additional insulin glucose 201-250 mg/dl 2 units sub-Q glucose 251-300 mg/dl 2 units sub-Q glucose 301-350 mg/dl 3 units sub-Q glucose 351-400 mg/dl 4 units sub-Q glucose > 400 mg/dl Call insulin aspart U-100 [Novolog U-100 Insulin aspart] 100 unit/mL Solution 4 - 8 unit subcut TIDWM Qty: 10 1RF Protocol: Insulin Corrective High-Dose Condition: glucose < 70 mg/dl Dose/Route: Follow hypoglycemia order Condition: glucose 70-200 mg/dl Dose/Route: No additional insulin Condition: glucose 201-250 mg/dl Dose/Route: 4 units sub-Q Condition: glucose 251-300 mg/dl Dose/Route: 5 units sub-Q Condition: glucose 301-350 mg/dl Dose/Route: 6 units sub-Q Condition: glucose 351-400 mg/dl Dose/Route: 8 units sub-Q Condition: glucose > 400 mg/dl Dose/Route: Call Protocol Text: *No Correction Dose at Bedtime* Rx Instructions: Instruction glucose < 70 mg/dl Follow hypoglycemia order glucose 70-200 mg/dl No additional insulin glucose 201-250 mg/dl 4 units sub-Q glucose 251-300 mg/dl 5 units sub-Q glucose 301-350 mg/dl 6 units sub-Q glucose 351-400 mg/dl 8 units sub-Q glucose > 400 mg/dl Call MD Continued levothyroxine 175 mcg tablet 175 mcg PO QAM metformin 500 mg tablet extended release 24hr 1,000 mg PO BID mecobalamin (vitamin B12) 1,000 mcg tablet,disintegrating 1,000 mcg sublingual QAM Rx Instructions: place tablet under tongue and allow to dissolve for at least30 secs before swallowing omeprazole 20 mg capsule,delayed release(DR/EC) 20 mg PO DAILY semaglutide 1 mg/dose (4 mg/3 mL) pen injector 1.5 mg subcut WEEKLY Rx Instructions: WEDNESDAYS go-ziuf-epgqs-lycopene-ginkgo 400-600-120 mcg-mcg-mg Tablet 1 tablet PO DAILY Eliquis 5 mg tablet 5 mg PO BID Qty: 180 0RF Patient Comments: HOld for [address] Flores atenolol 50 mg tablet 50 mg PO QAM Qty: 90 1RF Patient Comments: . Rx Instructions: TAKE 1 TABLET BY MOUTH DAILY tramadol 50 mg tablet 50 mg PO Q6H PRN (Reason: pain) Qty: 120 0RF fenofibrate micronized 200 mg capsule See Rx Instructions .ROUTE .COMPLEX Qty: 90 0RF Dose Instruction: TAKE 1 CAPSULE(200MG) BY MOUTH DAILY Rx Instructions: TAKE 1 CAPSULE(200MG) BY MOUTH DAILY celecoxib 200 mg capsule 200 mg PO BID Qty: 200 3RF Patient Comments: . rosuvastatin 10 mg tablet 10 mg PO HS Qty: 90 0RF gabapentin 300 mg capsule 300 mg PO BID Qty: 60 4RF No Action insulin lispro [Humalog KwikPen Insulin] 100 unit/mL insulin pen See Rx Instructions .ROUTE .COMPLEX Patient Comments: based on carb intake Rx Instructions: on sliding scale TID insulin glargine [Lantus Solostar U-100 Insulin] 100 unit/mL (3 mL) insulin pen 45 unit subcut .COMPLEX Rx Instructions: 45 units subcutaneously in AM and 85 units subcutaneously in PM Other Ambulatory Orders: US carotid duplex BI (Routine) Timeframe: 1 Week Location: Determined by Patient Ordered By: Neena Koch Lipid Panel (Routine) Timeframe: 1 Week Location: Determined by Patient Ordered By: Neena Koch Date of admission: 07/30/24 13:57 Primary Care Provider: Schueler,Larry F. Admitting Provider: Roselia Villasenor Attending physician on admission: Roselia Villasenor Condition: Stable
--- NOTE | 2024-07-31 14:06 | ECHO_ITS ---
Patient Info Name: Roscoe Pérez Age: 74 years : 1950 Gender: Male Ht: 73 in Wt: 214 lbs BSA: 2.25 m2 HR: 88 bpm BP: 147 / 79 mmHg Technical Quality: Fair Exam Date: 07/31/2024 10:26 AM Exam Location: Echo Lab Patient Status: Inpatient Admit Date: 07/30/2024 Staff Ordering Physician: Roselia Villasenor MD Insurance Collector: Lissa Pereira RDCS Attending Provider: Roselia Villasenor MD Exam Type: CA echo doppler color flow Study Info Indications - TIA Complete two-dimensional, color flow and Doppler transthoracic echocardiogram is performed. Summary 1. Complete two-dimensional, color flow and Doppler transthoracic echocardiogram is performed. 2. Left ventricular chamber dimension is normal. 3. Left ventricular systolic function is normal, estimated at 60-65%. 4. There is mild concentric increased left ventricular wall thickness. 5. The left ventricular diastolic function is grade I diastolic dysfunction. 6. E/e' 10 is mildly elevated. 7. emergency medical technician reported attempting bubble study multiple times but could not obtain. Left Ventricle E/e' 10 is mildly elevated. Left ventricular chamber dimension is normal. Left ventricular systolic function is normal, estimated at 60-65%. There is mild concentric increased left ventricular wall thickness. The left ventricular diastolic function is grade I diastolic dysfunction. Right Ventricle Right ventricular systolic function is normal and with normal TAPSE 2.4 cm. Right ventricular chamber dimension is normal. Left Atria Left atrial chamber dimension is normal. Right Atria Right atrial chamber dimension is normal. Atrial Septum emergency medical technician reported attempting bubble study multiple times but could not obtain. Aortic Valve The aortic valve is trileaflet. There is no aortic valve stenosis. There is no aortic valve regurgitation. Pulmonic Valve There is no pulmonic regurgitation. Mitral Valve There is no mitral valve stenosis. There is no mitral valve regurgitation. Tricuspid Valve There is no tricuspid valve regurgitation. Pericardium/Pleural There is no pericardial effusion. Inferior Vena Cava Normal inferior vena cava with >50% collapse upon inspiration consistent with normal right atrial pressure, 5 mmHg. Aorta The aortic root size at the sinus of Valsalva is normal. Left Ventricular Outflow Tract Name Value Normal LVOT 2D LVOT Diameter 2.1 cm LVOT Doppler LVOT Peak Gradient 3 mmHg LVOT Mean Gradient 1 mmHg LVOT VTI 20 cm LVOT VTI/AV VTI Ratio 0.8 LVOT Stroke Volume 72 ml LVOT CO 12.3 l/min LVOT CI 5.5 l/min/m2 Pulmonic Valve Name Value Normal PV Doppler PV Peak Gradient 4 mmHg Mitral Valve Name Value Normal MV Doppler MV Decel [place] 241 cm/s2 MV PHT 75 ms MV Area (PHT) 3.0 cm2 4.0-5.0 MV Diastolic Function MV E Peak Velocity 62 cm/s MV A Peak Velocity 101 cm/s MV E/A 0.6 MV Decel Time 257 ms MV Annular TDI MV E/e' (Septal) 15.9 <=8.0 MV E/e' (Lateral) 7.4 <=8.0 MV E/e' (Average) 11.6 Tricuspid Valve Name Value Normal Estimated PAP/RSVP RA Pressure 5 mmHg <=5 Aorta Name Value Normal Ascending Aorta Ao Root Diameter (MM) 3.3 cm Ao Root Diam Index (MM) 1.5 cm/m2 Aortic Valve Name Value Normal AV Doppler AV Peak Velocity 123 cm/s AV Peak Gradient 6 mmHg AV Mean Gradient 4 mmHg AV VTI 26 cm AV Area (Cont Eq VTI) 2.8 cm2 >=3.0 AV Area (Cont Eq [place]) 2.4 cm2 AV Regurgitation 2D LVOT Area 3.6 cm2 Ventricles Name Value Normal LV Dimensions 2D/MM IVS Diastolic Thickness (2D) 1.4 cm 0.6-1.0 LVID Diastole (2D) 4.4 cm 4.2-5.8 LVIW Diastolic Thickness (2D) 1.3 cm 0.6-1.0 LVID Systole (2D) 3.4 cm 2.5-4.0 LVOT Diameter 2.1 cm LV Mass (2D Cubed) 222.49 g 88.00-224.00 LV Mass Index (2D Cubed) 99 g/m2 49-115 Relative Wall Thickness (2D) 0.59 LV Fractional Shortening/Ejection Fraction 2D/MM LV Fractional Shortening (2D) 24 % 25-43 LV EF (2D Teicholz) 47 % 52-72 LV Diastolic Volume (4C MOD) 104 ml LV EF (4C MOD) 56 % LV Diastolic Volume (2C MOD) 50 ml LV EF (2C MOD) 39 % LV Diastolic Volume (BP MOD) 74 ml 62-150 LV Diastolic Volume Index (BP MOD) 33 ml/m2 34-74 LV Systolic Volume (BP MOD) 38 ml 21-61 LV Systolic Volume Index (BP MOD) 17 ml/m2 11-31 LV EF (BP MOD) 50 % 52-72 LV Diastolic Length (4C) 6.8 cm LV Systolic Length (4C) 5.6 cm LV Stroke Volume (4C MOD) 59 ml RV Dimensions 2D/MM RVID Diastole (2D) 3.4 cm 2.5-3.5 Atria Name Value Normal LA Dimensions LA Dimension (MM) 4.1 cm 3.0-4.1 LA Volume (4C A-L) 58 ml LA Volume (BP A-L) 53 ml RA Dimensions RA Area (4C) 15.7 cm2 <=18.0 Report Signatures
[2024-07-31] MEDS: INFLUENZA TRIVALENT VACCINE 45 MCG/0.5 ML SYRINGE IM (14:32)
--- NOTE | 2024-07-31 15:02 | WPDNEUROPN ---
Progress Note: A&P Assessment and Plan (1) Brain TIA: Code(s): G45.9 - Transient cerebral ischemic attack, unspecified Status: Acute (2) Left carotid artery occlusion: Code(s): I65.22 - Occlusion and stenosis of left carotid artery Status: Acute (3) Bilateral carotid artery disease: Code(s): I77.9 - Disorder of arteries and arterioles, unspecified Status: Acute (4) Essential hypertension: Code(s): I10 - Essential (primary) hypertension Status: Acute (5) CAD (coronary artery disease): Code(s): I25.10 - Atherosclerotic heart disease of [place] coronary artery without angina pectoris Status: Chronic (6) Insulin dependent diabetes mellitus: Status: Chronic Plan I have advised the patient to have a carotid Doppler study and lipid profile and follow-up in the office in a month with the results of these in the meanwhile he may continue with current medications which includes Crestor 10 mg a day and Eliquis. I noted that aspirin 81 mg also has been added and has do precautions are advised. Patient told me he does follow-up with someone in [facility] and has had a carotid Doppler study done a few months ago and was told that he has narrowing was less than 50%. Subjective Date/time seen: 07/31/24 15:02 Interval history: The patient is 74-year-old admitted to the hospital with episodes of right-sided weakness which resolved. He is known to have a complete occlusion of the left carotid artery for last [address] angiogram of the head and neck shows approximately 60% narrowing of the right internal carotid artery however the radiologist suggested a further verification of the ultrasound of the carotid artery. He does have history of diabetes mellitus. MRI of the brain did not show any acute infarcts but white matter changes were seen. Lacunar infarcts are noted in the basal ganglia. His blood pressure is now stable. The patient gives a history that 13 years ago he has had a stroke which is affected the left eye from which he was left with a very small area which he could not see clearly other than that he improved. Review of Systems Review of Systems: No headache or difficulty speech or swallowing All systems reviewed & are unremarkable except as noted in HPI and below Exam Const: General: cooperative, well developed and alert Orientation/consciousness: patient oriented x3 HENMT: Head: atraumatic Mouth: Yes oropharynx normal Eyes: Alignment and Position: position normal Pupils: Equal, round and reactive pupils present EOM: EOMs intact bilaterally Neck: Neck: supple Resp: Effort & Inspection: normal respiratory effort Cardio: Rhythm: regular rhythm Skin: General skin exam: normal color Neuro: General: patient oriented x3 Cranial nerves: Yes CN's II-XII intact bilaterally, Yes facial sensation intact/muscles of mastication intact, Yes Equal, round and reactive pupils present, Yes facial symmetry and Yes Midline tongue present Cognition (Neuro): normal cognition Speech: normal speech Gait exam (Neuro): Normal gait present Motor exam (neuro): 5/5 motor strength present throughout Coordination: [id number] test normal and Normal rapid alternating movements of the distal upper extremity present (Neuro) Objective Data Vital Signs Vital Signs: Vital Signs - 24 hr 07/30/24 16:00 07/30/24 20:00 07/30/24 20:46 Temperature 97.6 F Pulse Rate 72 76 98 Respiratory Rate 16 Blood Pressure 159/89 H Pulse Oximetry 98 Oxygen Delivery 07/31/24 00:00 07/31/24 04:00 07/31/24 05:03 Temperature 97.9 F Pulse Rate 111 H 71 68 Respiratory Rate 16 Blood Pressure 147/79 H Pulse Oximetry 99 Oxygen Delivery 07/31/24 07:44 07/31/24 08:00 07/31/24 12:00 Temperature Pulse Rate 99 109 H Respiratory Rate Blood Pressure Pulse Oximetry 99 Oxygen Delivery Room Air 07/31/24 14:00 Temperature 97.7 F Pulse Rate 80 Respiratory Rate 18 Blood Pressure 144/84 H Pulse Oximetry 98 Oxygen Delivery Intake/Output Intake/Output: Intake & Output 07/28/24 07/29/24 07/30/24 07/31/24 23:59 23:59 23:59 23:59 Intake Total 530 1434 1196 Output Total 500 Balance 30 1434 1196 Meds/Results Radiology Results: ITS Impressions Head CT 07/29/24 06:49 Impression: No intracranial hemorrhage, mass, or acute infarct. Atrophy and chronic white matter changes, as above. Head/Neck CTA 07/29/24 06:56 Impression: Complete occlusion of the origin of the left internal carotid artery, with no evidence for reconstitution along the entire course of the left internal carotid artery. Probable moderate stenosis at the proximal right internal carotid artery, probably approximately 60 %. Consider carotid duplex ultrasound or MRA as indicated to further evaluate. Chest X-Ray 07/29/24 07:04 Impression: Clear lungs. Stable Mediport. Renal Ultrasound 07/29/24 17:49 IMPRESSION: Unremarkable renal sonogram findings. Brain MRI 07/31/24 06:40 IMPRESSION: No acute infarct, intracranial hemorrhage, or mass lesion. Small chronic bilateral basal ganglia lacunar infarcts. Advanced chronic microvascular ischemic change and moderate generalized atrophy. Labs Labs: Laboratory Results - last 24 hr 07/30/24 07/30/24 07/31/24 17:12 20:56 07:33 POC Capillary Glucose 106 H 221 H 153 H 07/31/24 11:28 POC Capillary Glucose 274 H
== END 2024-07-31 14:55 | disposition home or self-care (01) | DRG 65 ==
LOC: ANHED 06:01 → ANH3MEDSUR 10:33
PROVIDERS: Admitting Provider Hospitalist; Emergency Provider Emergency Medicine; PCP Family Medicine; Visit Provider Hospitalist
DX: I63.9 Cerebral infarction, unspecified (principal); G81.91 Hemiplegia, unspecified affecting right dominant side; N39.0 Urinary tract infection, site not specified; G47.33 Obstructive sleep apnea (adult) (pediatric); R47.81 Slurred speech; R29.810 Facial weakness; R29.708 NIHSS score 8; E11.65 Type 2 diabetes mellitus with hyperglycemia; E78.5 Hyperlipidemia, unspecified; E03.9 Hypothyroidism, unspecified; I10 Essential (primary) hypertension; I71.20 Thoracic aortic aneurysm, without rupture, unspecified; I65.23 Occlusion and stenosis of bilateral carotid arteries; I25.10 Atherosclerotic heart disease of native coronary artery without angina pectoris; K21.9 Gastro-esophageal reflux disease without esophagitis; Z79.4 Long term (current) use of insulin; Z23 Encounter for immunization; Z79.84 Long term (current) use of oral hypoglycemic drugs; Z79.85 Long-term (current) use of injectable non-insulin antidiabetic drugs; Z20.822 Contact with and (suspected) exposure to COVID-19; Z79.01 Long term (current) use of anticoagulants; Z79.82 Long term (current) use of aspirin; Z86.711 Personal history of pulmonary embolism; Z85.51 Personal history of malignant neoplasm of bladder; Z86.73 Personal history of transient ischemic attack (TIA), and cerebral infarction without residual deficits; Z86.718 Personal history of other venous thrombosis and embolism; Z96.651 Presence of right artificial knee joint; Z96.642 Presence of left artificial hip joint; Z95.828 Presence of other vascular implants and grafts; Z87.891 Personal history of nicotine dependence
CPT/HCPCS: 36415; 70450; 70496; 70498; 70553; 71045; 76775; 80053; 81001; 82948; 84484; 85025; 85610; 85730; 87086; 87637; 90471; 90656; 93005; 93306; 96365; 99285; A9270; A9579; G0008; G0378; J0696; J1815; J2060; Q9967

== ENCOUNTER 2024-10-05 02:50 | Emergency (ER) | payer MEDICARE, SELFPAY ==
--- OUTSIDE RECORDS SUMMARY | 2024-10-05 02:57 | XMS_ITS | Encounter Summary ---
Author Organization [facility] Address [address] [place] [address] Care Team Providers Care Gyroscope Repairer Name Role Phone Larry Morel MD Primary Care Provider [phone] Noam Horn MD Unavailable [phone] Hao Perez MD Unavailable [phone] Reason for Visit * Auth/Cert (Routine) Specialty Diagnoses / Procedures Referred By Ayesha t Referred To Contact Diagnoses Gross hematuria Gross hematuria [R31.0] Procedures UT CYSTO W/REMOVAL OF LESIONS SMALL UT CYSTOURETHROSCOPY WITH BIOPSY Cystoscopy, Fulguration of Bladder Possible Bladder Biopsy Referral ID Status Reason Start Date Expiration Date Visits Re quested Visits Authorized [id number] 1 1 Encounter Details Date Type Department Care Team (Latest Contact Info) Description 10/04/2024 10:19 AM CDT - 10/04/2024 4:10 PM CDT Hospital Encounter [facility] Operating Room [address] [place] [id number] [place] [id number] [place] [id number] Gross hematuria Discharge Disposition: Discharge to home or self care Social History Tobacco Use Types Packs/Day Years Used Date Smoking Tobacco: Former Cigarettes Q uit: 1983 Smokeless Tobacco: Never Alcohol Use Standard Drinks/Week Comments Yes 0 (1 standard drink = 0.6 oz pur e alcohol) AUDIT-C Answer Date Recorded Q1: How often do you have a drink containing alc ohol? 2-3 times a week 10/03/2024 Q2: How many drinks containi ng alcohol do you have on a typical day when you are drinking? 3 or 4 10/03/2024 Q3: How often do you have si x or more drinks on one occasion? Never 10/03/2024 PHQ-2 Answer Date Recorded PHQ-2 Total Score 0 08/05/2024 Personal Safety Answer Date Recorded Have you ever been in or are you currently in a harmful physical or emotional relationship or is someone making you feel afraid or unsafe? Denies 10/04/2024 Sex and Gender Information Value Date Recorded Sex Assigned at Not on file Legal Sex Male 10:29 AM [employer] Gender Identity Not on file Sexual Orientation Not on file documented as of this encounter Last Filed Vital Signs Vital Sign Reading Time Taken Comments Blood Pressure 148/80 10/04/2024 3:20 PM CDT Pulse 84 10/04/2024 3:20 PM CDT Temperature 37.2 C (98.9 F) 10/04/2024 11:02 AM CDT Respiratory Rate 20 10/04/2024 3:20 PM CDT Oxygen Saturation 98% 10/04/2024 3:20 PM CDT Inhaled Oxygen Concentration - - Weight 95.3 kg (210 lb 1.6 oz) 10/04/2024 11:02 AM CDT Height 185.4 cm (6' 1 ) 10/04/2024 11:02 AM CDT Body Mass Index 27.72 10/04/2024 11:02 AM CDT documented in this encounter Functional Status * Audit-C Score Answer Date of Assessment Author 4 10/03/2024 12:07 PM CDT Fidelia Hunter RN * Question Answer Date of Assessment Author Q1: How often do you have a drink containing alcohol? 2-3 times a week 10/03/2024 12:07 PM DIANAT Fidelia Hunter RN Q2: How many drinks containing alcohol do you have on a typical day when you are drinking? 3 or 4 10/03/2024 12:07 PM Fidelia Dennison RN Q3: How often do you have six or more drinks on one occasion? Never 10/03/2024 12:07 PM Fidelia Dennison RN documented as of this encounter Discharge Instructions * Attachments The following attachments cannot be sent through Care Everywhere. * Anxiolysis in Adults (AfterCare(R) Instructions(ER/ED)) ([place] Islander) documented in this encounter Medications at Time of Discharge apixaban (ELIQUIS) 5 mg tablet Take 1 tablet (5 mg total) by mouth 2 (two) times a day aspirin 81 mg enteric coated tablet Take 1 tablet (81 mg total) by mouth every morning atenolol (TENORMIN) 50 mg tablet Take 1 tablet (50 mg total) by mouth every morning 1 06/27/2018 celecoxib (CeleBREX) 200 mg capsule Take 1 capsule (200 mg total) by mouth 2 (two) times a day 0 07/01/2018 cyanocobalamin (Vitamin B-12) 1,000 mcg tablet Take 1 tablet (1,000 mcg total) by mouth every morning 03/09/2020 fenofibrate micronized (LOFIBRA) 200 mg capsuleIndicatio ns:hyperlipidemi a Take 1 capsule (200 mg total) by mouth every morning 0 07/01/2018 gabapentin (NEURONTIN) 300 mg capsule Take 1 capsule (300 mg total) by mouth 2 (two) times a day 0 07/01/2018 insulin glargine 100 unit/mL vial for injection Inject 85 Units under the skin nightly insulin glargine 100 unit/mL vial for injection Inject 45 Units under the skin every morning insulin lispro (HumaLOG, ADMELOG) 100 unit/mL vial for injection Inject under the skin 3 (three) times a day before meals Per sliding scale levothyroxine (SYNTHROID) 175 mcg tablet Take 1 tablet (175 mcg total) by mouth every morning 04/07/2021 lidocaine-priloc tereso cream Apply 1 g (1 Application total) topically as needed (port access) 03/21/2024 metFORMIN XR (GLUCOPHAGE XR) 500 mg 24 hr tablet Take 2 tablets (1,000 mg total) by mouth 2 (two) times a day 08/24/2022 multivitamin capsule Take 1 capsule by mouth every morning omeprazole (PriLOSEC) 20 mg capsule Take 1 capsule (20 mg total) by mouth every morning 1 07/20/2018 Ozempic 1 mg/dose (4 mg/3 mL) pen injector injectionIndicat ions:type 2 diabetes mellitus Inject 1 mg under the skin once a week Takes on Wednesday08/06/2023 rosuvastatin (CRESTOR) 20 mg tablet Take 1 tablet (20 mg total) by mouth nightly 30 tablet 08/06/2024 traMADol (ULTRAM) 50 mg tablet Take 1 tablet (50 mg total) by mouth every 6 (six) hours as needed for pain 02/06/2014 documented as of this encounter Discharge Disposition Disposition Code Departure Means Destination Comment s Discharge to home or self care documented in this encounter H&P Notes * Rell Worthy MD - 10/04/2024 12:48 PM CDT General H&P Subjective Patient is a 74 y.o. male with chief complaint of gross hematuria and bladder cancer. HPI: Mr. Pérez has recurrent gross hematuria. The hematuria has stopped. He has held his anticoagulation for surgery today. The hematuria also stopped the last time he held his anticoagulation for surgery. He presents today to see if there was a source for the bleeding. 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 Graves disease HX OTHER MEDICAL sciatica HX OTHER MEDICAL 2008 CVA (Stroke) HX OTHER MEDICAL 2002 RLE DVT HX OTHER MEDICAL Orbital decompression > 20 yrs ago HX OTHER MEDICAL 2003 LLE superficial venous thrombosis HX OTHER MEDICAL factor V Leiden mutation HX OTHER MEDICAL L hip bursitis Hyperlipidemia Hyperlipidemia Hypertension Hypertension Motion sickness Type 2 diabetes mellitus (HCC) Past Surgical History: Procedure Laterality Date CERVICAL FUSION cervical fusion EYE SURGERY LAMINECTOMY laminectomy OTHER SURGICAL HISTORY R meniscus repair OTHER SURGICAL HISTORY L total hip replacement Medications Prior to Admission Medication Sig Dispense Refill Last Dose/Taking insulin glargine 100 unit/mL vial for injection Inject 85 Units under the skin nightly 10/03/2024 insulin glargine 100 unit/mL vial for injection Inject 45 Units under the skin every morning 10/03/2024 insulin lispro (HumaLOG, ADMELOG) 100 unit/mL vial for injection Inject under the skin 3 (three) times a day before meals Per sliding scale 10/03/2024 levothyroxine (SYNTHROID) 175 mcg tablet Take 1 tablet (175 mcg total) by mouth every morning 10/03/2024 traMADol (ULTRAM) 50 mg tablet Take 1 tablet (50 mg total) by mouth every 6 (six) hours as needed for pain 10/04/2024 apixaban (ELIQUIS) 5 mg tablet Take 1 tablet (5 mg total) by mouth 2 (two) times a day 10/01/2024 aspirin 81 mg enteric coated tablet Take 1 tablet (81 mg total) by mouth every morning 09/27/2024 atenolol (TENORMIN) 50 mg tablet Take 1 tablet (50 mg total) by mouth every morning 1 10/01/2024 celecoxib (CeleBREX) 200 mg capsule Take 1 capsule (200 mg total) by mouth 2 (two) times a day 0 09/27/2024 cyanocobalamin (Vitamin B-12) 1,000 mcg tablet Take 1 tablet (1,000 mcg total) by mouth every morning 09/27/2024 fenofibrate micronized (LOFIBRA) 200 mg capsule Take 1 capsule (200 mg total) by mouth every morning 0 09/30/2024 gabapentin (NEURONTIN) 300 mg capsule Take 1 capsule (300 mg total) by mouth 2 (two) times a day 0 09/30/2024 lidocaine-prilocaine cream Apply 1 g (1 Application total) topically as needed (port access) More than a month metFORMIN XR (GLUCOPHAGE XR) 500 mg 24 hr tablet Take 2 tablets (1,000 mg total) by mouth 2 (two) times a day 09/30/2024 multivitamin capsule Take 1 capsule by mouth every morning 09/30/2024 omeprazole (PriLOSEC) 20 mg capsule Take 1 capsule (20 mg total) by mouth every morning 1 09/30/2024 Ozempic 1 mg/dose (4 mg/3 mL) pen injector injection Inject 1 mg under the skin once a week Takes on Wednesday09/27/2024 rosuvastatin (CRESTOR) 20 mg tablet Take 1 tablet (20 mg total) by mouth nightly 30 tablet 0 09/30/2024 Allergies Allergen Reactions Bactrim [Sulfamethoxazole-Trimethoprim] Hives Unsure if caused by bactrim or pyridium Pyridium [Phenazopyridine] Hives Patient states he is unsure if he got hives from Pyridium or Bactrim. Social History Tobacco Use Smoking status: Former Current packs/day: 0.00 Types: Cigarettes Quit date: 1983 Years since quittin.4 Smokeless tobacco: Never Substance and Sexual Activity Drug use: Not Currently Sexual activity: Defer Alcohol Use: Alcohol Misuse (10/03/2024) AUDIT-C Frequency of Alcohol Consumption: 2-3 times a week Average Number of Drinks: 3 or 4 Frequency of Binge Drinking: Never Family History Problem Relation Age of Onset Cancer Father Family history of malignant neoplasm - (Added by TW Conv) Arthritis Father Family history of arthritis - (Added by TW Conv) Arthritis Mother Family history of arthritis - (Added by TW Conv) Hypertension Mother Family history of hypertension - (Added by TW Conv) Anesthesia problems Neg Hx Review of Systems All other systems reviewed and are negative. Objective Vitals: Arrival Vitals [10/04/24 1102] Temp 37.2 ??C (98.9 ??F) Pulse 67 Resp 18 BP 153/77 SpO2 97 % Temp src Temporal Heart Rate Source Monitor Patient Position BP Location FiO2 (%) 24hr Min/Max: Temp Min: 37.2 ??C (98.9 ??F) Max: 37.2 ??C (98.9 ??F) Pulse Min: 67 Max: 67 BP Min: 153/77 Max: 153/77 Resp Min: 18 Max: 18 SpO2 Min: 97 % Max: 97 % Most Recent : Vitals: 10/04/24 1102 BP: 153/77 Pulse: 67 Resp: 18 Temp: 37.2 ??C (98.9 ??F) SpO2: 97% No intake/output data recorded. No intake/output data recorded. Physical Exam Constitutional: Appearance: He is normal weight. HENT: Head: Normocephalic and atraumatic. Abdominal: General: Abdomen is flat. Palpations: Abdomen is soft. Neurological: General: No focal deficit present. Mental Status: He is alert and oriented to person, place, and time. Psychiatric: Mood and Affect: Mood normal. Behavior: Behavior normal. Lab/Radiology/Diagnostic Review: Laboratory review: Lab results in the last 24 hours: Recent Results (from the past 24 hours) POCT glucose Collection Time: 10/04/24 11:08 AM Result Value Ref Range Glucose, POC 182 70 - 199 mg/dL POC Performer [id number] Assessment Principal Problem: Gross hematuria Plan Cystoscopy with possible bladder biopsy and fulguration of bleeding. We discussed risks of further bleeding and urinary tract infection. We discussed that I may see nothing on cystoscopy today that can be biopsied or fulgurated as the bleeding has resolved. He would like to continue as planned as the bleeding has recurred each time he has restarted the anticoagulation. We also discussed that if the bleeding recurs with restarting the anticoagulation, he should speak to his primary care doctor and system technologist about the need for continued anticoagulation. documented in this encounter Miscellaneous Notes * Op Note - Rell Worthy MD - 10/04/2024 12:30 PM CDT Operative Report SURGEON: Rell Worthy MD SURGICAL TEAM: Surgeons and Role: * Rell Worthy MD - Primary DATE OF SURGERY : 10/04/2024 PREOPERATIVE DIAGNOSIS: Pre-op Diagnosis * Gross hematuria [R31.0] POSTOPERATIVE DIAGNOSIS: Post-op Diagnosis * Gross hematuria [R31.0] PROCEDURE: Cystoscopy, Transurethral Resection of a Bladder Tumor INDICATION FOR PROCEDURE: Gross hematuria and recurrent bladder cancer ANESTHESIA: General IMPLANTS: Nothing was implanted during the procedure OPERATIVE DETAILS The patient was brought to the operating room in stable condition. He was placed under general anesthesia. He received Ancef for antibiotic prophylaxis. A 22 [place] cystoscope was advanced through the urethra into the bladder. The bladder was examined. A papillary appearing lesion was noted on the anterior bladder wall at the bladder neck. The cystoscope was removed and a resection scope was placed. The tumor was resected fully. It was proximally 2.5 centimeters in size. Appeared papillary. No other tumors were noted within the bladder or the prostatic urethra. The area of resection was coagulated fully. All the specimens were removed. The area was inspected again for bleeding. No bleeding was noted. The cystoscope was removed. The patient tolerated the procedure well. Estimated Blood Loss: 3 mL Intraoperative Fluids: As per anesthesia record Blood/Blood Products Transfused: 0 mls Specimens: Order Name Source Comment Collection Info Order Time SURGICAL PATHOLOGY Mass/Tumor/Lesion Placed in Formalin at end of procedure Collected By: Rell Worthy MD 10/04/2024 1:58 PM Complications: None Condition on Discharge from the operating room was stable Rell Worthy MD Date: 10/04/2024 Time: 2:08 PM documented in this encounter Plan of Treatment Pending Results Name Type Priority Associated Diagnoses Date /Time Surgical pathology Pathology and Cytology Routine Gross hematuria 10/04/2024 1:54 PM CDT Scheduled Orders Name Type Priority Associated Diagnoses Order Schedule Surgical pathology Pathology and Cytology Timed Gross hematuria Release Upon Ordering for 1 Occurrences starting 10/04/2024 documented as of this encounter Procedures Procedure Name Priority Date/Time Associated Diagnosis Comments POCT GLUCOSE DEVICE Routine 10/04/2024 2 :19 PM CDT BIOPSY BLADDER - CYSTOSCOPY 10/04/2024 1:30 PM CDT Gross hematuria CYSTOSCOPY CLOT EVACUATION 10/04/2024 1:30 PM CDT Gross hematuria POCT GLUCOSE DEVICE Routine 10/04/2024 1 1:08 AM CDT documented in this encounter Results * POCT glucose (10/04/2024 2:19 PM CDT) Glucose, POC 127 70 - 199 mg/dL Comment: For Glucose values <35 mg/dl when Hematocrit is >60 mg/dl,the test may not accurately detect significant hypoglycemia,and testing in the Laboratory should be considered if clinically indicated. POC Performer [id number] [facility] Blood 10/04/2024 2:19 PM CDT 10/04/2024 2:19 PM CDT us Rell Worthy MD LAB POCT ORDERABLES - DEVICE F inal Result [facility] [address] Department [place] [address] * POCT glucose (10/04/2024 11:08 AM CDT) Glucose, POC 182 70 - 199 mg/dL Comment: For Glucose values <35 mg/dl when Hematocrit is >60 mg/dl,the test may not accurately detect significant hypoglycemia,and testing in the Laboratory should be considered if clinically indicated. POC Performer [id number] ROS [facility] Blood 10/04/2024 11:0 8 AM CDT 10/04/2024 11:08 AM CDT us Rell Worthy MD LAB POCT ORDERABLES - DEVICE F inal Result [facility] [address] Department [place] [address] documented in this encounter Visit Diagnoses Diagnosis Gross hematuria- Primary documented in this encounter Admitting Diagnoses Diagnosis Gross hematuria documented in this encounter Administered Medications Inactive Administered Medications - up to 3 most recent administrations Medication Order MAR Action Action Date Dose Rate Site albuterol 2.5 mg /3 mL (0.083 %) nebulizer solution 2.5 mg 2.5 mg, nebulization, As needed, wheezing, Starting on Wed10/04/24 at 1411, For 2 doses, Phase I, Notify Anesthesiologist. , Indications: Bronchospastic Pulmonary DiseaseIndications:Bronchospastic Pulmonary Disease Carrier Fluids for Secondary Infusion - 0.9% Sodium Chloride 30 mL, intravenous, As needed, For priming tubing and/or flushing, Starting on Wed10/04/24 at 1044, Pre-Op, 0-250 ml/hr to flush line after IV infusions when no maintenance IV ordered. Infuse 30mL at the same rate as the secondary infusion. Run as primary IV, not intended for KVO. dextrose (D10W) 10% bolus 250 mL 250 mL, intravenous, at 1,000 mL/hr, Administer over 15 Minutes, Once as needed, blood glucose less than 70 mg/dL, Starting on Wed10/04/24 at 1126, Pre-Op, Indications: HypoglycemiaIndications:Hypoglycem ia dextrose (D10W) 10% bolus 250 mL 250 mL, intravenous, at 1,000 mL/hr, Administer over 15 Minutes, Every 15 min PRN, blood glucose less than 70 mg/dL and UNABLE to swallow/take PO glucose/juice., Starting on Wed10/04/24 at 1411, Phase I, After treatment for hypoglycemia, recheck BG followed by treatment every 15 minutes until the BG is greater than 100 mg/dL. Then check BG 1 hour post treatment. If BG is less than 100 mg/dL, repeat Q15 minute BG checks and treatment. Call MD for each episode of hypoglycemia., Indications: hypoglycemic disorderIndications:hypoglycemic disorder dextrose (GLUTOSE) 40 % gel 15 g 15 g, oral, Every 15 min PRN, low blood sugar, blood glucose less than 70 mg/dL, Starting on Wed10/04/24 at 1411, Phase I, If patient is alert and able to eat/drink, give 15 gm glucose or one juice (4 fluid ounces) NOT ORANGE JUICE. After treatment for hypoglycemia, recheck BG followed by treatment every 15 minutes until the BG is greater than 100 mg/dL. Then check BG 1 hour post-treatment. If BG is less than 100 mg/dL, repeat Q15 minute BG checks and treatment. Call MD for each episode of hypoglycemia. INVESTMENT DIRECTOR STATES GLUTOSE-15 CONTAINS GLUCOSE 40% W/W (50% W/V), Indications: hypoglycemic disorderIndications:hypoglycemic disorder diphenhydrAMINE (BENADRYL) 50 mg/mL injection 12.5 mg 12.5 mg, intravenous, Every 15 min PRN, itching, Starting on Wed10/04/24 at 1411, For 2 doses, Phase I, Max cumulative dose 50 mg., Indications: ItchingIndications:Itching fentaNYL (SUBLIMAZE) preservative free injection 25 mcg 25 mcg, intravenous, Every 5 min PRN, Within 15 minutes of arrival to the PACU, maximum dose of 50 mcg total., Starting on Wed10/04/24 at 1411, For 2 doses, Phase I, Within 15 minutes of arrival to the PACU. Maximum dose of 50 mcg total, then proceed to PACU 1st line analgesic or notify the anesthesiologist if needed., Indications: PainIndications:Pain gabapentin (NEURONTIN) capsule 200 mg 200 mg, oral, Once, On Wed10/04/24 at 1115, For 1 dose, Pre-Op, Indications: Pre-Emptive AnalgesiaIndications:Pre-Emptive Analgesia Given 10/04/2024 11:04 AM CDT 200 mg glucagon injection 1 mg 1 mg, intramuscular, Every 30 min PRN, low blood sugar, blood glucose less than 70 mg/dL AND no IV access AND unable to take PO glucose/juice., Starting on Wed10/04/24 at 1411, Phase I, After Glucagon is administered, position patient on side if possible to avoid aspiration. Obtain IV access. Follow glucagon treatment with glucose treatment or IV dextrose. After treatment for hypoglycemia, recheck BG followed by treatment every 15 minutes until the BG is greater than 100 mg/dL. Then check BG 1 hour post treatment. If BG is less than 100 mg/dL, repeat Q15 minute BG checks and treatment. Call MD for each episode of hypoglycemia. Reconstitute 1 mg vial with 1 mL SWFI. Use immediately following reconstitution. haloperidol lactate (HALDOL) injection 1 mg 1 mg, intravenous, Administer over 5 Minutes, Once as needed, nausea, vomiting, Starting on Wed10/04/24 at 1411, For 1 dose, Phase I, If post-operative nausea and/or vomiting is not relieved by ondansetron within 30 minutes or if more than 8mg of ondansetron have been given within the last 6 hours. HYDROmorphone (DILAUDID) injection 0.2 mg 0.2 mg, intravenous, Administer over 2 Minutes, Every 10 min PRN, 1st line for pain, Starting on Wed10/04/24 at 1411, For 10 doses, Phase I, Switch to 2nd line analgesic order if pain is uncontrolled or increasing after 1 dose. Notify Anesthesiologist if total PACU dose reaches 2 mg and pain score 5/10 or more., Indications: PainIndications:Pain HYDROmorphone (DILAUDID) injection 0.4 mg 0.4 mg, intravenous, Administer over 2 Minutes, Every 10 min PRN, 2nd line for pain, Starting on Wed10/04/24 at 1411, For 5 doses, Phase I, May administer 10 mintes after 1st dose of 1st line analgesic agent for uncontrolled or increasing pain. Revert to 1st line dose if POSS of 3. Notify Anesthesiologist if total PACU dose reaches 2 mg and pain score 5/10 or more., Indications: PainIndications:Pain insulin lispro (HumaLOG, ADMELOG) 100 unit/mL injection 0-5 Units 0-5 Units, subcutaneous, Once as needed, high blood sugar, Starting on Wed10/04/24 at 1411, For 1 dose, Phase I, Blood glucose mg/dL: 149 or less: No insulin 150-199: add 1 unit 200-249: add 2 units 250-299: add 3 units 300-349: add 4 units and notify physician for adjustment of insulin orders. 350-399: add 5 units and notify physician for adjustment of insulin orders. Over 400: Notify physician for adjustment of insulin orders. Do NOT hold for NPO Status, Indications: Stress HyperglycemiaIndications:Stress Hyperglycemia labetaloL (NORMODYNE,TRANDATE) injection 5 mg 5 mg, intravenous, at 30 mL/hr, Administer over 2 Minutes, Every 10 min PRN, high blood pressure, Starting on Wed10/04/24 at 1411, For 4 doses, Phase I, Max cumulative dose 20 mg. Dose if systolic blood pressure greater than 180 AND HR greater than 70. Lactated Ringer's (LR) infusion 30 mL/hr, intravenous, Continuous, Starting on Wed10/04/24 at 1115, Pre-Op Restarted 10/04/2024 1:55 PM CDT Rate/Dose Verify 10/04/2024 1:29 PM CDT 30 mL/h r New Bag 10/04/2024 11:30 AM CDT 30 mL/hr 30 mL/hr lidocaine (PF) (XYLOCAINE) 10 mg/mL (1 %) preservative free injection 2-10 mg 2-10 mg (0.2-1 mL), other, Once as needed, pain with IV placement, Starting on Wed10/04/24 at 1044, For 1 dose, Pre-Op, Administer volume needed to infiltrate IV site. naloxone (NARCAN) 0.4 mg/mL injection 0.04-0.4 mg 0.04-0.4 mg, intravenous, Once as needed, other, excessive sedation/respiratory depression, Starting on Wed10/04/24 at 1411, For 1 dose, Phase I, BEFORE ADMINISTERING - notify anesthesiologist to verify administration. Then, dilute 0.4 mg with 9 mL NS (final concentration 0.04 mg/mL). For respiratory depression (respiratory rate less than 6), administer 0.4 mg IVP over 30 seconds. For excessive sedation administer 0.04 mg (1 mL) every 1 minute until desired level of alertness. For IV, administer over 30 seconds., Indications: Opioid ToxicityIndications:Opioid Toxicity ondansetron (ZOFRAN) injection 4 mg 4 mg, intravenous, Administer over 2 Minutes, Once as needed, nausea, vomiting, Starting on Wed10/04/24 at 1411, For 1 dose, Phase I, Proceed to haloperidol if more than 8 mg of ondansetron have been given within the last 6 hours., Indications: Prevention of Post-Operative Nausea and VomitingIndications:Prevention of Post-Operative Nausea and Vomiting oxyCODONE (ROXICODONE) tablet 5 mg 5 mg, oral, As needed, 1st line for pain, Starting on Wed10/04/24 at 1411, For 2 doses, Phase I, 1st ORAL choice for pain, when the patient is able to tolerate PO medications. May repeat in 1 hour if pain is uncontrolled or increasing after 1st dose., Indications: PainIndications:Pain racepinephrine (ASTHMANEFRIN) 2.25 % nebulizer solution 0.5 mL 0.5 mL, nebulization, As needed, other, stridor, Starting on Wed10/04/24 at 1411, For 2 doses, Phase I, Notify Anesthesiologist. , Indications: WheezingIndications:Wheezing sodium chloride 0.9% flush 0.5-20 mL 0.5-20 mL, intra-catheter, Every 8 hours scheduled (alternate), First dose on Wed10/04/24 at 1115, Pre-Op, Flush volume based on line type and size. sodium chloride 0.9% flush 0.5-20 mL 0.5-20 mL, intra-catheter, As needed, line care, Starting on Wed10/04/24 at 1044, Pre-Op, Flush volume based on line type and size. Flush before and after each use. documented in this encounter Active and Recently Administered Medications Times are shown in CDT. Scheduled Medication Order 10/02/2024 10/03/2024 10/04/2024 ceFAZolin (ANCEF) 2,000 mg/20 mL in sterile water (premix) 2,000 mg (COMPLETED) 2,000 mg, intravenous, at 400 mL/hr, Administer over 3 Minutes, Once, On Wed10/04/24 at 1115, For 1 dose, Pre-Op, Administer within 60 minutes of incision., Indications: Prophylaxis, Surgical 1339 (Given - Provid er: Janae Campo CRNA) gabapentin (NEURONTIN) capsule 200 mg (COMPLETED) 200 mg, oral, Once, On Wed10/04/24 at 1115, For 1 dose, Pre-Op, Indications: Pre-Emptive Analgesia 1104 (Given - Provid er: Marium Connors RN) sodium chloride 0.9% flush 0.5-20 mL(Linked Group 1) 0.5-20 mL, intra-catheter, Every 8 hours scheduled (alternate), First dose on Wed10/04/24 at 1115, Pre-Op, Flush volume based on line type and size. 1115 (Due)1600 (Due) Continuous Medication Order 10/02/2024 10/03/2024 10/04/2024 Lactated Ringer's (LR) infusion 30 mL/hr, intravenous, Continuous, Starting on Wed10/04/24 at 1115, Pre-Op 1130 (New Bag - Prov ider: Kandy Wei RN)1329 (Rate/Dose Verify - Provider: Janae Campo CRNA)1354 (Paused - Provider: Janae Campo CRNA - Comment: Switch to gravity)1355 (Restarted - Provider: Janae Capmo CRNA)1401 (Anesthesia Volume Adjustment - Provider: Janae Campo CRNA)2024 (Due: Stopped) PRN Medication Order 10/02/2024 10/03/2024 10/04/2024 albuterol 2.5 mg /3 mL (0.083 %) nebulizer solution 2.5 mg 2.5 mg, nebulization, As needed, wheezing, Starting on Wed10/04/24 at 1411, For 2 doses, Phase I, Notify Anesthesiologist. , Indications: Bronchospastic Pulmonary Disease Carrier Fluids for Secondary Infusion - 0.9% Sodium Chloride(Linked Group 1) 30 mL, intravenous, As needed, For priming tubing and/or flushing, Starting on Wed10/04/24 at 1044, Pre-Op, 0-250 ml/hr to flush line after IV infusions when no maintenance IV ordered. Infuse 30mL at the same rate as the secondary infusion. Run as primary IV, not intended for KVO. dextrose (D10W) 10% bolus 250 mL 250 mL, intravenous, at 1,000 mL/hr, Administer over 15 Minutes, Once as needed, blood glucose less than 70 mg/dL, Starting on Wed10/04/24 at 1126, Pre-Op, Indications: Hypoglycemia dextrose (D10W) 10% bolus 250 mL(Linked Group 2) 250 mL, intravenous, at 1,000 mL/hr, Administer over 15 Minutes, Every 15 min PRN, blood glucose less than 70 mg/dL and UNABLE to swallow/take PO glucose/juice., Starting on Wed10/04/24 at 1411, Phase I, After treatment for hypoglycemia, recheck BG followed by treatment every 15 minutes until the BG is greater than 100 mg/dL. Then check BG 1 hour post treatment. If BG is less than 100 mg/dL, repeat Q15 minute BG checks and treatment. Call MD for each episode of hypoglycemia., Indications: hypoglycemic disorder dextrose (GLUTOSE) 40 % gel 15 g(Linked Group 2) 15 g, oral, Every 15 min PRN, low blood sugar, blood glucose less than 70 mg/dL, Starting on Wed10/04/24 at 1411, Phase I, If patient is alert and able to eat/drink, give 15 gm glucose or one juice (4 fluid ounces) NOT ORANGE JUICE. After treatment for hypoglycemia, recheck BG followed by treatment every 15 minutes until the BG is greater than 100 mg/dL. Then check BG 1 hour post-treatment. If BG is less than 100 mg/dL, repeat Q15 minute BG checks and treatment. Call MD for each episode of hypoglycemia. INVESTMENT DIRECTOR STATES GLUTOSE-15 CONTAINS GLUCOSE 40% W/W (50% W/V), Indications: hypoglycemic disorder diphenhydrAMINE (BENADRYL) 50 mg/mL injection 12.5 mg 12.5 mg, intravenous, Every 15 min PRN, itching, Starting on Wed10/04/24 at 1411, For 2 doses, Phase I, Max cumulative dose 50 mg., Indications: Itching fentaNYL (SUBLIMAZE) preservative free injection 25 mcg 25 mcg, intravenous, Every 5 min PRN, Within 15 minutes of arrival to the PACU, maximum dose of 50 mcg total., Starting on Wed10/04/24 at 1411, For 2 doses, Phase I, Within 15 minutes of arrival to the PACU. Maximum dose of 50 mcg total, then proceed to PACU 1st line analgesic or notify the anesthesiologist if needed., Indications: Pain glucagon injection 1 mg 1 mg, intramuscular, Every 30 min PRN, low blood sugar, blood glucose less than 70 mg/dL AND no IV access AND unable to take PO glucose/juice., Starting on Wed10/04/24 at 1411, Phase I, After Glucagon is administered, position patient on side if possible to avoid aspiration. Obtain IV access. Follow glucagon treatment with glucose treatment or IV dextrose. After treatment for hypoglycemia, recheck BG followed by treatment every 15 minutes until the BG is greater than 100 mg/dL. Then check BG 1 hour post treatment. If BG is less than 100 mg/dL, repeat Q15 minute BG checks and treatment. Call MD for each episode of hypoglycemia. Reconstitute 1 mg vial with 1 mL SWFI. Use immediately following reconstitution. haloperidol lactate (HALDOL) injection 1 mg 1 mg, intravenous, Administer over 5 Minutes, Once as needed, nausea, vomiting, Starting on Wed10/04/24 at 1411, For 1 dose, Phase I, If post-operative nausea and/or vomiting is not relieved by ondansetron within 30 minutes or if more than 8mg of ondansetron have been given within the last 6 hours. HYDROmorphone (DILAUDID) injection 0.2 mg 0.2 mg, intravenous, Administer over 2 Minutes, Every 10 min PRN, 1st line for pain, Starting on Wed10/04/24 at 1411, For 10 doses, Phase I, Switch to 2nd line analgesic order if pain is uncontrolled or increasing after 1 dose. Notify Anesthesiologist if total PACU dose reaches 2 mg and pain score 5/10 or more., Indications: Pain HYDROmorphone (DILAUDID) injection 0.4 mg 0.4 mg, intravenous, Administer over 2 Minutes, Every 10 min PRN, 2nd line for pain, Starting on Wed10/04/24 at 1411, For 5 doses, Phase I, May administer 10 mintes after 1st dose of 1st line analgesic agent for uncontrolled or increasing pain. Revert to 1st line dose if POSS of 3. Notify Anesthesiologist if total PACU dose reaches 2 mg and pain score 5/10 or more., Indications: Pain insulin lispro (HumaLOG, ADMELOG) 100 unit/mL injection 0-5 Units 0-5 Units, subcutaneous, Once as needed, high blood sugar, Starting on Wed10/04/24 at 1411, For 1 dose, Phase I, Blood glucose mg/dL: 149 or less: No insulin 150-199: add 1 unit 200-249: add 2 units 250-299: add 3 units 300-349: add 4 units and notify physician for adjustment of insulin orders. 350-399: add 5 units and notify physician for adjustment of insulin orders. Over 400: Notify physician for adjustment of insulin orders. Do NOT hold for NPO Status, Indications: Stress Hyperglycemia labetaloL (NORMODYNE,TRANDATE) injection 5 mg 5 mg, intravenous, at 30 mL/hr, Administer over 2 Minutes, Every 10 min PRN, high blood pressure, Starting on Wed10/04/24 at 1411, For 4 doses, Phase I, Max cumulative dose 20 mg. Dose if systolic blood pressure greater than 180 AND HR greater than 70. lidocaine (PF) (XYLOCAINE) 10 mg/mL (1 %) preservative free injection 2-10 mg 2-10 mg (0.2-1 mL), other, Once as needed, pain with IV placement, Starting on Wed10/04/24 at 1044, For 1 dose, Pre-Op, Administer volume needed to infiltrate IV site. naloxone (NARCAN) 0.4 mg/mL injection 0.04-0.4 mg 0.04-0.4 mg, intravenous, Once as needed, other, excessive sedation/respiratory depression, Starting on Wed10/04/24 at 1411, For 1 dose, Phase I, BEFORE ADMINISTERING - notify anesthesiologist to verify administration. Then, dilute 0.4 mg with 9 mL NS (final concentration 0.04 mg/mL). For respiratory depression (respiratory rate less than 6), administer 0.4 mg IVP over 30 seconds. For excessive sedation administer 0.04 mg (1 mL) every 1 minute until desired level of alertness. For IV, administer over 30 seconds., Indications: Opioid Toxicity ondansetron (ZOFRAN) injection 4 mg 4 mg, intravenous, Administer over 2 Minutes, Once as needed, nausea, vomiting, Starting on Wed10/04/24 at 1411, For 1 dose, Phase I, Proceed to haloperidol if more than 8 mg of ondansetron have been given within the last 6 hours., Indications: Prevention of Post-Operative Nausea and Vomiting oxyCODONE (ROXICODONE) tablet 5 mg 5 mg, oral, As needed, 1st line for pain, Starting on Wed10/04/24 at 1411, For 2 doses, Phase I, 1st ORAL choice for pain, when the patient is able to tolerate PO medications. May repeat in 1 hour if pain is uncontrolled or increasing after 1st dose., Indications: Pain racepinephrine (ASTHMANEFRIN) 2.25 % nebulizer solution 0.5 mL 0.5 mL, nebulization, As needed, other, stridor, Starting on Wed10/04/24 at 1411, For 2 doses, Phase I, Notify Anesthesiologist. , Indications: Wheezing sodium chloride 0.9% flush 0.5-20 mL(Linked Group 1) 0.5-20 mL, intra-catheter, As needed, line care, Starting on Wed10/04/24 at 1044, Pre-Op, Flush volume based on line type and size. Flush before and after each use. sodium chloride 0.9% irrigation (CANCELED) As needed, Starting on Wed10/04/24 at 1350, Intra-Op 1350 (Given - Provid er: Rell Worthy MD - Comment: PRN on sterile filed) sterile water irrigation (CANCELED) As needed, Starting on Wed10/04/24 at 1349, Intra-Op 1349 (Given - Provid er: Rell Worthy MD - Comment: PRN for irrigation) Linked Groups Order Group 1: Saline lock IV (CANCELED) Routine, Once (Routine), On Wed10/04/24 at 1045, For 1 occurrence, Pre-Op And sodium chloride 0.9% flush 0.5-20 mLJump to med 0.5-20 mL, intra-catheter, Every 8 hours scheduled (alternate), First dose on Wed10/04/24 at 1115, Pre-Op, Flush volume based on line type and size. And sodium chloride 0.9% flush 0.5-20 mLJump to med 0.5-20 mL, intra-catheter, As needed, line care, Starting on Wed10/04/24 at 1044, Pre-Op, Flush volume based on line type and size. Flush before and after each use. And Carrier Fluids for Secondary Infusion - 0.9% Sodium ChlorideJump to med 30 mL, intravenous, As needed, For priming tubing and/or flushing, Starting on Wed10/04/24 at 1044, Pre-Op, 0-250 ml/hr to flush line after IV infusions when no maintenance IV ordered. Infuse 30mL at the same rate as the secondary infusion. Run as primary IV, not intended for KVO. Group 2: dextrose (GLUTOSE) 40 % gel 15 gJump to med 15 g, oral, Every 15 min PRN, low blood sugar, blood glucose less than 70 mg/dL, Starting on Wed10/04/24 at 1411, Phase I, If patient is alert and able to eat/drink, give 15 gm glucose or one juice (4 fluid ounces) NOT ORANGE JUICE. After treatment for hypoglycemia, recheck BG followed by treatment every 15 minutes until the BG is greater than 100 mg/dL. Then check BG 1 hour post-treatment. If BG is less than 100 mg/dL, repeat Q15 minute BG checks and treatment. Call MD for each episode of hypoglycemia. INVESTMENT DIRECTOR STATES GLUTOSE-15 CONTAINS GLUCOSE 40% W/W (50% W/V), Indications: hypoglycemic disorder Or dextrose (D10W) 10% bolus 250 mLJump to med 250 mL, intravenous, at 1,000 mL/hr, Administer over 15 Minutes, Every 15 min PRN, blood glucose less than 70 mg/dL and UNABLE to swallow/take PO glucose/juice., Starting on Wed10/04/24 at 1411, Phase I, After treatment for hypoglycemia, recheck BG followed by treatment every 15 minutes until the BG is greater than 100 mg/dL. Then check BG 1 hour post treatment. If BG is less than 100 mg/dL, repeat Q15 minute BG checks and treatment. Call MD for each episode of hypoglycemia., Indications: hypoglycemic disorder documented in this encounter Orders Medications Ordered That Abdirizak ht Not Have Been Administered Count Last Ordered Date First Ordered Date albuterol 2.5 mg /3 mL (0.08 3 %) nebulizer solution 2.5 mg 1 10/04/2024 Carrier Fluids for Secondary Infusion - 0.9% Sodium Chloride 10/04/2024 ceFAZolin (ANCEF) 2,000 mg/2 0 mL in sterile water (premix) 2,000 mg 10/04/2024 dextrose (D10W) 10% bolus 250 mL 10/05/19 dextrose (GLUTOSE) 40 % gel 15 g 1 10/05/19 diphenhydrAMINE (BENADRYL) 5 0 mg/mL injection 12.5 mg 1 10/04/2024 fentaNYL (SUBLIMAZE) preserv ative free injection 25 mcg 1 10/04/2024 glucagon injection 1 mg 1 10/04/2024 haloperidol lactate (HALDOL) injection 1 mg 1 10/04/2024 HYDROmorphone (DILAUDID) injection 0.2 mg 10/04/2024 HYDROmorphone (DILAUDID) injection 0.4 mg 10/04/2024 insulin lispro (HumaLOG, ADM ELOG) 100 unit/mL injection 0-5 Units 1 10/04/2024 labetaloL (NORMODYNE,TRANDAT E) injection 5 mg 1 10/04/2024 lidocaine (PF) (XYLOCAINE) 1 0 mg/mL (1 %) preservative free injection 2-10 mg 1 10/04/2024 naloxone (NARCAN) 0.4 mg/mL injection 0.04-0.4 mg 10/04/2024 ondansetron (ZOFRAN) injection 4 mg 10/04 oxyCODONE (ROXICODONE) tablet 5 mg 2024 racepinephrine (ASTHMANEFRIN ) 2.25 % nebulizer solution 0.5 mL 1 10/04/2024 sodium chloride 0.9% flush 0.5-20 mL 2 09/15 sodium chloride 0.9% irrigation 1 sterile water irrigation 1 10/04/2024 Diet Count Last Ordered Date First Orde red Date ADULT DISCHARGE DIET 1 10/04/2024 Nursing Count Last Ordered Date First Orde red Date DISCHARGE ACTIVITY 1 10/04/2024 DISCHARGE CALL PROVIDER 10 10/04/2024 Discharge Count Last Ordered Date First Orde red Date DISCHARGE PATIENT 1 10/04/2024 documented in this encounter Care Teams Gyroscope Repairer Relationship Specialty Start Date End Date Larry Morel MD PCP - General Family Medicine 12/05/19 Noam Horn MD [address] [place] [address] Referring Physician Endocrinology Diabetes & Metabolism 07/29/20 Hao Perez MD [address] [place] [address] Referring Physician Ophthalmology 07/29/20 documented as of this encounter
--- OUTSIDE RECORDS SUMMARY | 2024-10-05 02:58 | XMS_ITS | Patient Health Record ---
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5 0.0 - 5.0 mg/dL Microalb/Creat Ratio, Randm Ur Reviewed date:12/03/2023 02:38:50 PM Interpretation: Performing Lab:[facility] [place], [address], [place], Phone - [phone], Director - Ja Notes/Report: Creatinine, Urine 225.2 Not Estab. mg/dL Albumin, Urine 110.7 Not Estab. ug/mL Alb/Creat Ratio 49 0-29 mg/g creat Normal: 0 - 29 Moderately increased: 30 - 300 Severely increased: >300 Comp Metabolic Panel (14) Reviewed date:12/03/2023 02:39:04 PM Interpretation: Performing Lab:[facility] [place], [address] [facility], Phone - [phone], Director - Ja Notes/Report: Glucose 116 70-99 mg/dL BUN 13 8-27 mg/dL Creatinine 1.06 0.76-1.27 mg/dL eGFR 74 >59 mL/min/1.73 BUN/Creatinine Ratio 12 10-24 Sodium 142 134-144 mmol/L Potassium 4.7 3.5-5.2 mmol/L Chloride 103 96-106 mmol/L Carbon Dioxide, Total 26 20-29 mmol/L Calcium 11.1 8.6-10.2 mg/dL Protein, Total 6.7 6.0-8.5 g/dL Albumin 4.6 3.8-4.8 g/dL Globulin, Total 2.1 1.5-4.5 g/dL Bilirubin, Total 0.5 0.0-1.2 mg/dL Alkaline Phosphatase 51 44-121 IU/L AST (SGOT) 22 0-40 IU/L ALT (SGPT) 20 0-44 IU/L Vitamin D, 25-Hydroxy (In-Ho use) Reviewed date:12/08/2023 06:03:23 PM Interpretation: Performing Lab: Notes/Report: Vitamin D, 25-Hydroxy (in house) 64.7 30 - 100 ng/mL Vitamin B12 (In-House) Reviewed date:12/08/2023 06:03:49 PM Interpretation: Performing Lab: Notes/Report: Vitamin B12 (In-House) 535 180 - 914 pg/mL Thyroid Profile (In-House) ( TSH3+TT3+FT4) Reviewed date:12/08/2023 06:02:56 PM Interpretation: Performing Lab: Notes/Report: TSH3 0.41 0.45 - 5.33 uIU/mL TT3 1.04 0.62 - 1.62 ng/mL FT4 1.08 0.62 - 1.58 ng/dL Hemoglobin A1c Reviewed date:03/22/2024 12:26:54 PM Interpretation: Performing Lab:[facility] [place], [address], [place], Phone - [phone], Director - Ja Notes/Report: Hemoglobin A1c 6.7 4.8-5.6 % . Prediabetes: 5.7 - 6.4 Diabetes: >6.4 Glycemic control for adults with diabetes: <7.0 Comp Metabolic Panel (14) Reviewed date:03/22/2024 12:27:10 PM Interpretation: Performing Lab:[facility], [address] [facility], Phone - [phone], Director - Ja Notes/Report: Glucose 148 70-99 mg/dL BUN 5 8-27 mg/dL Creatinine 0.95 0.76-1.27 mg/dL eGFR 84 >59 mL/min/1.73 BUN/Creatinine Ratio 5 10-24 Sodium 139 134-144 mmol/L Potassium 4.6 3.5-5.2 mmol/L Chloride 103 96-106 mmol/L Carbon Dioxide, Total 25 20-29 mmol/L Calcium 10.2 8.6-10.2 mg/dL Protein, Total 6.3 6.0-8.5 g/dL Albumin 4.0 3.8-4.8 g/dL Globulin, Total 2.3 1.5-4.5 g/dL Bilirubin, Total 0.6 0.0-1.2 mg/dL Alkaline Phosphatase 83 44-121 IU/L AST (SGOT) 17 0-40 IU/L ALT (SGPT) 18 0-44 IU/L Hemoglobin A1c Reviewed date:06/30/2024 12:24:52 PM Interpretation: Performing Lab:[facility] [address] [facility], Phone - [phone], Director - Ja Notes/Report: Hemoglobin A1c 7.6 4.8-5.6 % . Prediabetes: 5.7 - 6.4 Diabetes: >6.4 Glycemic control for adults with diabetes: <7.0 Comp Metabolic Panel (14) Reviewed date:06/30/2024 12:25:24 PM Interpretation: Performing Lab:[facility] [address] [place] [address], Phone - [phone], Director - Ja Notes/Report: Glucose 89 70-99 mg/dL BUN 15 8-27 mg/dL Creatinine 1.07 0.76-1.27 mg/dL eGFR 72 >59 mL/min/1.73 BUN/Creatinine Ratio 14 10-24 Sodium 141 134-144 mmol/L Potassium 4.4 3.5-5.2 mmol/L Chloride 103 96-106 mmol/L Carbon Dioxide, Total 24 20-29 mmol/L Calcium 10.4 8.6-10.2 mg/dL Protein, Total 6.6 6.0-8.5 g/dL Albumin 4.3 3.8-4.8 g/dL Globulin, Total 2.3 1.5-4.5 g/dL Bilirubin, Total 0.5 0.0-1.2 mg/dL Alkaline Phosphatase 62 44-121 IU/L AST (SGOT) 17 0-40 IU/L ALT (SGPT) 18 0-44 IU/L REASON FOR REFERRAL No Information MEDICATIONS Medication SIG (Take, Route, Frequency, Duration) Notes Start Date End Date Status Lantus SoloStar 100 UNIT/ML INJECT 45 UNITS IN THE MORNING AND 85 UNITS IN THE EVENING UNDER THE SKIN DAILY for 90 days Active Omeprazole 20 MG 1 capsule Orally Onc e a day for 90 days Active Eliquis 5 MG 1 tablet Orally Twic e a day 07/21/2023 Active Celecoxib 200 MG TAKE ONE CAPSULE BY MOUTH WITH FOOD NEEDED Orally Three Times a Day Active Rosuvastatin Calcium 10 MG 1 tablet Orally Once a day Active Fenofibrate Micronized 200 MG TAKE 1 CAPSULE BY MOUTH ONCE A DAY Active Vitamin B-12 1000 MCG 1 tablet Orally Once a day 0 01/27/2019 Active Complete Multi-Vitamin Orally Once a Day Active Atenolol 50 MG 1 tablet Orally Once a day Active HumaLOG KwikPen 100 UNIT/ML per moderate dose sliding scale Subcutaneous three times a day max Daily Dose 50 Units for 90 days Active metFORMIN HCl ER 500 MG 2 Tablets Orally Two Times a Day Active Klor-Con 10 10 MEQ 3 Tablets Orally Onc e a Day Active Levothyroxine Sodium 175 MCG 1 tablet in the morning on an empty stomach Orally Once a day Active Accu-Chek FastClix Lancets - DXCODE: E11.65, IDDM) Use 1 Lancet Subcutaneously Three Times a Day Active Gabapentin 300 MG 1 Capsule Orally Two Times a Day Active TRUEplus Pen [place] 31G X 8 MM USE DIRECTED 5 TIMES A DAY for 90 Active Accu-Chek SmartView - DXCODE: E11.65, ID DM) Use 1 Test Strip In Vitro Three Times a Day for 90 days Active Ozempic (1 MG/DOSE) 4 MG/3ML INJECT 1 MG UNDER THE SKIN ONCE A WEEK for 84 Active IMMUNIZATIONS Vaccine Route Administration Date Status Comme nts Influenza IM Intramuscular 02/08/2020 Administered Pt received Influenza HD Lot #[id number] EXP November 13 2020 SOCIAL HISTORY Sex Assigned At : Social History Observation Description Sex Assigned At Unknown PROBLEMS Problem Type ICD Code Onset Dates Problem Status W/U Status Risk SNOMED Code Notes Problem Peripheral neuropathy (G62.9) Active confirmed Periphera l neuropathy (508305603) Problem CVA (cerebral infarction) (I63.9) Active confirmed Cerebrov ascular accident (142291305) Problem Benign hypertension (I10) Active confirmed 56645471 Problem Vitamin D deficiency, unspecified (E55.9) Active confirmed Vitamin D deficiency (46612959) Problem Type 2 diabetes mellitus with hyperglycemia (E11.65) Active confirmed Hyperglycemia d ue to type 2 diabetes mellitus (040820135266251) Problem Kidney stone (N20.0) Active confirmed Kidney stone (91389652) Problem Hypercalcemia (E83.52) Active confirmed Hypercalcemia (66547599) Problem 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) Active confirmed Mixed hyperlipidemia (799461868) Problem Unspecified hypothyroidism (E03.9) Active confirmed 00760245 Problem 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) Active confirmed 812569291 Problem Thrombophlebitis (I80.9) Active confirmed Thrombophlebiti s (91434884) Problem Deficiency of other specified B group vitamins (E53.8) Active confirmed Vitamin B deficiency (65974333) Problem 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) Active confirmed Glucose product (080468852) VITAL SIGNS Heart Rate 76 /min 06/29/2024 Blood pressure diastolic 74 mm Hg 06/29/2024 Height 73 in 06/29/2024 Blood pressure systolic 148 mm Hg 06/29/2024 Weight 209.0 lbs 06/29/2024 BMI 27.57 kg/m2 06/29/2024 Encounters Encounter Location Date Provider Diagnosis [facility] [address] [address] 12/02/2023 Noam Oivanesa Type 2 diabetes mellitus with hyperglycemia E11.65 ; Peripheral neuropathy G62.9 ; Unspecified hypothyroidism E03.9 ; Benign hypertension I10 ; Combined hyperlipidemia E78.2 ; Hypercalcemia E83.52 ; 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 ; Presence of CGMS Z410.0 ; CVA (cerebral infarction) I63.9 ; Thrombophlebitis I80.9 ; Vitamin D deficiency, unspecified E55.9 ; Deficiency of other specified B group vitamins E53.8 and Kidney stone N20.0 [facility] [address] [place] [phone] 03/10/2024 Linnea Orlando [facility] [address] [address] 03/21/2024 Noam Oiknine Type 2 diabetes mellitus with hyperglycemia E11.65 ; Peripheral neuropathy G62.9 ; Unspecified hypothyroidism E03.9 ; Benign hypertension I10 ; Combined hyperlipidemia E78.2 ; Hypercalcemia E83.52 ; 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 ; Presence of CGMS Z410.0 ; CVA (cerebral infarction) I63.9 ; Thrombophlebitis I80.9 ; Vitamin D deficiency, unspecified E55.9 ; Deficiency of other specified B group vitamins E53.8 and Kidney stone N20.0 [facility] [address] [place] [phone] 06/29/2024 Noam Oiknine Type 2 diabetes mellitus with hyperglycemia E11.65 ; Peripheral neuropathy G62.9 ; Unspecified hypothyroidism E03.9 ; Benign hypertension I10 ; Combined hyperlipidemia E78.2 ; Hypercalcemia E83.52 ; 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 ; Presence of CGMS Z410.0 ; CVA (cerebral infarction) I63.9 ; Thrombophlebitis I80.9 ; Vitamin D deficiency, unspecified E55.9 ; Deficiency of other specified B group vitamins E53.8 and Kidney stone N20.0 [facility] [address] [place] [phone] 10/05/2024 Noam Oiknine [facility] [address] [place] [phone] 10/12/2023 Noam Oiknine Type 2 diabetes mellitus with hyperglycemia E11.65 [facility] [address] [place] [phone] 10/12/2023 Noam Oiknine [facility] [address] [address] 10/12/2023 Noam Oiknine Type 2 diabetes mellitus with hyperglycemia E11.65 [facility] [address] [address] 10/15/2023 Noam Oiknine Unspecified hypothyroidism E03.9 [facility] [address] [address] 12/02/2023 Noam Oiknine [facility] [address] [address] 12/29/2023 Noam Oiknine Type 2 diabetes mellitus with hyperglycemia E11.65 [facility] [address] [address] 01/03/2024 Noam Oiknine Type 2 diabetes mellitus with hyperglycemia E11.65 [facility] [address] [address] 01/03/2024 Noam Oiknine Unspecified hypothyroidism E03.9 [facility] [address] [address] 03/08/2024 Noam Oiknine Type 2 diabetes mellitus with hyperglycemia E11.65 [facility] [address] [address] 03/14/2024 Noam Oiknine [facility] [address] [address] 03/23/2024 Noam Oiknine Type 2 diabetes mellitus with hyperglycemia E11.65 [facility] [address] [address] 05/22/2024 Noam Oiknine Type 2 diabetes mellitus with hyperglycemia E11.65 [facility] [address] [address] 06/29/2024 Noam Oiknine [facility] [address] [address] 08/02/2024 Noam Oiknine [facility] [address] [address] 08/08/2024 Noam Oiknine Type 2 diabetes mellitus with hyperglycemia E11.65 [facility] [address] [address] 09/06/2024 Noam Horn Type 2 diabetes mellitus with hyperglycemia E11.65 [facility] [address] [address] 09/06/2024 Noam Horn Type 2 diabetes mellitus with hyperglycemia E11.65 ASSESSMENTS Encounter Date Diagnosis Assessment Notes Treatment Notes Treatment Clinical Notes 12/02/2023 Type 2 diabetes mellitus with hyperglycemia (ICD-10 - E11.65) 12/02/2023 Peripheral neuropath y (ICD-10 - G62.9) 03/21/2024 Type 2 diabetes mellitus with hyperglycemia (ICD-10 - E11.65) 03/21/2024 Peripheral neuropath y (ICD-10 - G62.9) 06/29/2024 Type 2 diabetes mellitus with hyperglycemia (ICD-10 - E11.65) 06/29/2024 Peripheral neuropath y (ICD-10 - G62.9) 10/12/2023 Type 2 diabetes mellitus with hyperglycemia (ICD-10 - E11.65) 10/12/2023 Type 2 diabetes mellitus with hyperglycemia (ICD-10 - E11.65) 10/15/2023 Unspecified hypothyroidism (ICD-10 - E03.9) 12/29/2023 Type 2 diabetes mellitus with hyperglycemia (ICD-10 - E11.65) 01/03/2024 Type 2 diabetes mellitus with hyperglycemia (ICD-10 - E11.65) 01/03/2024 Unspecified hypothyroidism (ICD-10 - E03.9) 03/08/2024 Type 2 diabetes mellitus with hyperglycemia (ICD-10 - E11.65) 03/23/2024 Type 2 diabetes mellitus with hyperglycemia (ICD-10 - E11.65) 05/22/2024 Type 2 diabetes mellitus with hyperglycemia (ICD-10 - E11.65) 08/08/2024 Type 2 diabetes mellitus with hyperglycemia (ICD-10 - E11.65) 09/06/2024 Type 2 diabetes mellitus with hyperglycemia (ICD-10 - E11.65) 09/06/2024 Type 2 diabetes mellitus with hyperglycemia (ICD-10 - E11.65) 12/02/2023 Unspecified hypothyroidism (ICD-10 - E03.9) 03/21/2024 Unspecified hypothyroidism (ICD-10 - E03.9) 06/29/2024 Unspecified hypothyroidism (ICD-10 - E03.9) 12/02/2023 Benign hypertension (ICD-10 - I10) 03/21/2024 Benign hypertension (ICD-10 - I10) 06/29/2024 Benign hypertension (ICD-10 - I10) 12/02/2023 Combined hyperlipidemia (ICD-10 - E78.2) 03/21/2024 Combined hyperlipidemia (ICD-10 - E78.2) 06/29/2024 Combined hyperlipidemia (ICD-10 - E78.2) 12/02/2023 Hypercalcemia (ICD-1 0 - E83.52) 03/21/2024 Hypercalcemia (ICD-1 0 - E83.52) 06/29/2024 Hypercalcemia (ICD-1 0 - E83.52) 12/02/2023 Impotence of organic origin (ICD-10 - N52.8) 03/21/2024 Impotence of organic origin (ICD-10 - N52.8) 06/29/2024 Impotence of organic origin (ICD-10 - N52.8) 12/02/2023 Presence of CGMS (ICD-10 - Z410.0) 03/21/2024 Presence of CGMS (ICD-10 - Z410.0) 06/29/2024 Presence of CGMS (ICD-10 - Z410.0) 12/02/2023 CVA (cerebral infarction) (ICD-10 - I63.9) 03/21/2024 CVA (cerebral infarction) (ICD-10 - I63.9) 06/29/2024 CVA (cerebral infarction) (ICD-10 - I63.9) 12/02/2023 Thrombophlebitis (ICD-10 - I80.9) 03/21/2024 Thrombophlebitis (ICD-10 - I80.9) 06/29/2024 Thrombophlebitis (ICD-10 - I80.9) 12/02/2023 Vitamin D deficiency , unspecified (ICD-10 - E55.9) 03/21/2024 Vitamin D deficiency , unspecified (ICD-10 - E55.9) 06/29/2024 Vitamin D deficiency , unspecified (ICD-10 - E55.9) 12/02/2023 Deficiency of other specified B group vitamins (ICD-10 - E53.8) 03/21/2024 Deficiency of other specified B group vitamins (ICD-10 - E53.8) 06/29/2024 Deficiency of other specified B group vitamins (ICD-10 - E53.8) 12/02/2023 Kidney stone (ICD-10 - N20.0) 03/21/2024 Kidney stone (ICD-10 - N20.0) 06/29/2024 Kidney stone (ICD-10 - N20.0) 12/02/[address] Noam alfonso dictates using [employer] Speaking software. Manipulator Operator variances may occur. Since our last visit the patient has felt generally well. Blood pressure remained stable. He did have a DVT. He had been off of warfarin for 10 days for surgery. He is now on Eliquis. Blood pressure remained stable. He has tolerated GLP-1 RA therapy. He has lost over 10 pounds. Glycemic control is improving. We reviewed the sensor data. The average CGM reading is 164 mg/dL with a time in range of 72%. Time above range is 27%. Time below range is 1%. The best glucose day was on 11/19/2023 with a time in range of 100%. He is interested in participating in our remote monitoring program for glycemic control and I will enroll him. We agree to continue the current treatment for diabetes, neuropathy, hypertension and hyperlipidemia. I will repeat a battery of tests and based on the results, further recommendations will be made. We otherwise set a goal A1c around 7% without hypoglycemia. 03/21/[address] Noam Horn dictates using [employer] Speaking software. Manipulator Operator variances may occur. Since our last visit the patient had a port placed for treatment with KETRUDA for bladder cancer. Blood pressure remained stable. He has gained a few pounds. He is off of hydrochlorothiazide. I will repeat an A1c along with a complete metabolic panel. I stressed the importance of a low glycemic diet along with a daily aerobic physical activity. He remains on intensive insulin therapy, metformin along with GLP-1 RA therapy. He does have neuropathy which is treated. He has hypothyroidism which is treated. He follows up with his PCP, oncologist as indicated. We will see him again in 3 months for follow-up or sooner if needed. We have set a goal A1c around 7% . We reviewed the CGM data. The average reading is 182 mg/dL with an estimated GMI of 7.7%. Time in range is 54%. Time above range is 56%. 06/29/[address] Noam alfonso dictates using [employer] software. Manipulator Operator variances may occur. Since our last visit the patient has followed up with his PCP, urologist. The patient has bladder cancer. He is currently on KEYTRUDA. He does complain of itching. We reviewed his medications. We reviewed his prior lab work. We reviewed his CGM data. The average reading is 175 mg/dL with an estimated GMI of 7.5%. Time in range is 46%. Time below range is 2%. Time above range is 53%. I stressed the importance of tight glycemic control. The last A1c was 6.7%. I will repeat an A1c along with a complete metabolic panel. We will continue the current treatment for hypothyroidism, peripheral neuropathy. He will remain anticoagulated. He will continue following up with all his providers as indicated. He is interested in participating in our remote monitoring program for glycemic control and I will enroll him. We will see him again in 3 months for follow-up PLAN OF TREATMENT Next Appt Details Provider Name:Noam Horn, 10/05/2024 01:00:00 PM, [address], [address], Insurance Providers Payer Name Payer Address Payer Phone Subscriber Number Group Number Insured Name Patient Relationship to Insured Coverage Start Date Coverage End Date Medicare [address] [address] [place] [address] [id number] Roscoe Pérez Sr Self - patient is the insured [employer] [address] [place] [address] [id number] Roscoe Pérez Sr Self - patient is the insured MEDICAL (GENERAL) HISTORY Medical History History ICD Code type II diabetes (Dx 2002 Hypothyroidism hypertension benign prostatic hyperplasia (BPH) decreased HDL s/p CVA increased sciatica history of recurrent thrombophlebitis re quiring chronic anticoagulation. hypercalcemia Glossitis kidney stones sciatica sleep apnea carotid stenosis kidney stone 02/2020---DR COREY [facility] 10/2021 on BCG treatment---dr rubio--DR GONG --- PORT [facility] Surgical History Surgery Date(Month/Year) esophageal stricture 1998 kidney stone removal/ stent (2003) 2002 lumbar disc surgery cervical fusion orbital decompression and eye retraction 1980 left hip arthroplasty 2010 trigger finger release 2012 right knee replacement kidney stone removal/ stent 2018 lithotripsy procedure 2018 kidney stones removal, stent put in, jonna nt got infected took out 02/2020 Thumb and Pointer finger Surgery 07/2020 kidney stent 11/2020 biospy x2 laminectomy L3-L5 06/2023 Port placement for cancer treatment 02/15 024 Hospitalization History Reason Date(Month/Year) heparin window 2010 Kidney stones 02/2020 Kidney Stones 11/2020 Covid 01/2021 Falls/balance issues 04/2023
--- OUTSIDE RECORDS SUMMARY | 2024-10-05 02:58 | XMS_ITS | Encounter Summary ---
Author Organization [facility] Address [address] [place] [address] Care Team Providers Care Spray Unit Feeder Name Role Phone Larry Morel MD Primary Care Provider [phone] Noam Horn MD Unavailable [phone] Hao Perez MD Unavailable [phone] Reason for Visit * Auth/Cert (Routine) Specialty Diagnoses / Procedures Referred By Contivy t Referred To Contact Diagnoses Gross hematuria Gross hematuria [R31.0] Procedures NJ CYSTO W/REMOVAL OF LESIONS SMALL NJ CYSTOURETHROSCOPY WITH BIOPSY Cystoscopy, Fulguration of Bladder Possible Bladder Biopsy Referral ID Status Reason Start Date Expiration Date Visits Re quested Visits Authorized [id number] 1 1 Encounter Details Date Type Department Care Team (Late st Contact Info) Description 10/04/2024 12:30 PM CDT - 10/04/2024 1:45 PM CDT Surgery [facility] Operating Room [address] [place] [id number] [place] [id number] [place] [id number] Cystoscopy Surgery Details Date/Time Status Location OR Service Patient Class Case Cl ass Case Type Trauma Case? 10/04/2024 12:30 PM Posted [facility] OPERATING ROOM OR 21 Urology Outpatient Elective Panel 1 Procedure LRB Anes Op Region Wound Class Comments Cystoscopy N/A General Urethra Class II - Jaspal an Contaminated (BLD) Transurethral Resection of a Bladder Tumor N/A General Urethra Class II - Clean Contaminated (BLD) Surgeon Surgeon Role Service Panel Rell Worthy MD Primary Urology 1 documented in this encounter Social History Tobacco Use Types Packs/Day Years Used Date Smoking Tobacco: Former Cigarettes Q uit: 1984 Smokeless Tobacco: Never Alcohol Use Standard Drinks/Week [...] on file 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 Gender Identity Not on file Sexual Orientation Not on file documented as of this encounter Last Filed Vital Signs Vital Sign Reading Time Taken Comments Blood Pressure 153/77 10/04/2024 11:02 AM CDT Pulse 67 10/04/2024 11:02 AM CDT Temperature 37.2 C (98.9 F) 10/04/2024 11:02 AM CDT Respiratory Rate 18 10/04/2024 11:02 AM CDT Oxygen Saturation 97% 10/04/2024 11:02 AM CDT Inhaled Oxygen Concentration - - Weight [...] 2-3 times a week 10/03/2024 12:07 PM Fidelia Dennison RN Q2: How many drinks containing alcohol [...] 182 70 - 199 mg/dL POC Performer [id number] Assessment Principal Problem: Gross hematuria Plan Cystoscopy [...] speak to his primary care doctor and concaving machine operator about the need for continued anticoagulation. documented [...] received Ancef for antibiotic prophylaxis. A 22 Georgian cystoscope was advanced through the urethra into [...] be considered if clinically indicated. POC Performer [id number] ROS [facility] Blood 10/04/2024 2:19 PM CDT 10/04/2024 2:19 PM CDT Rell Worthy MD LAB POCT ORDERABLES - DEVICE F inal Result Performing Organization Address [facility] Co de Phone Number [facility] [address] [place] [address] * POCT glucose (10/04/2024 11:08 AM CDT) [facility] Signature Glucose, POC 182 70 - 199 mg/dL Comment: For Glucose values <35 mg/dl when Hematocrit is >60 mg/dl,the test may not accurately detect significant hypoglycemia,and testing in the Laboratory should be considered if clinically indicated. POC Performer [id number] [facility] Blood 10/04/2024 11:0 8 AM CDT 10/04/2024 11:08 AM CDT Rell Worthy MD LAB POCT ORDERABLES - DEVICE F inal Result Performing Organization Address [facility] de Phone Number ROS [facility] [address] [place] [address] documented in this encounter Visit Diagnoses Diagnosis Gross hematuria- Primary Gross hematuria documented in this encounter Admitting Diagnoses Diagnosis [...] Call MD for each episode of hypoglycemia. [place] GLUTOSE-15 CONTAINS GLUCOSE 40% W/W (50% [...] after each use. sodium chloride 0.9% irrigation As needed, Starting on Wed10/04/24 at 1350, Intra-Op Given 10/04/2024 1:50 PM CDT 500 mL Surgical Site sterile water irrigation As needed, Starting on Wed10/04/24 at 1349, Intra-Op Given 10/04/2024 1:49 PM CDT 3,000 mL Surgical Site documented in this encounter Active and Recently [...] Switch to gravity)1355 (Restarted - Provider: Janae Campo CRNA)1401 (Anesthesia Volume Adjustment - Provider: Janae Campo CRNA)2023 (Due: Stopped) PRN Medication Order 10/02/2024 10/03/2024 [...] Call MD for each episode of hypoglycemia. [place] GLUTOSE-15 CONTAINS GLUCOSE 40% W/W (50% [...] Call MD for each episode of hypoglycemia. [place] GLUTOSE-15 CONTAINS GLUCOSE 40% W/W (50% [...] (0.08 3 %) nebulizer solution 2.5 mg 10/04/2024 Carrier Fluids for Secondary Infusion - 0.9% Sodium Chloride 10/04/2024 ceFAZolin (ANCEF) 2,000 mg/2 0 mL in sterile water (premix) 2,000 mg 10/04/2024 dextrose (D10W) 10% bolus 250 mL 2 10/05/19 dextrose (GLUTOSE) 40 % gel 15 g 10/05/19 diphenhydrAMINE (BENADRYL) 5 0 mg/mL injection 12.5 mg 10/04/2024 fentaNYL (SUBLIMAZE) preserv ative free injection 25 mcg 10/04/2024 glucagon injection 1 mg 10/04/2024 haloperidol lactate (HALDOL) injection 1 mg 10/04/2024 HYDROmorphone (DILAUDID) injection 0.2 mg 10/04/2024 HYDROmorphone (DILAUDID) injection 0.4 mg 10/04/2024 insulin lispro (HumaLOG, ADM ELOG) 100 unit/mL injection 0-5 Units 10/04/2024 labetaloL (NORMODYNE,TRANDAT E) injection 5 mg 10/04/2024 lidocaine (PF) (XYLOCAINE) 1 0 mg/mL (1 %) preservative free injection 2-10 mg 10/04/2024 naloxone (NARCAN) 0.4 mg/mL injection 0.04-0.4 mg 10/04/2024 ondansetron (ZOFRAN) injection 4 mg 1 10/04 oxyCODONE (ROXICODONE) tablet 5 mg 1 2024 racepinephrine (ASTHMANEFRIN ) 2.25 % nebulizer solution 0.5 mL 1 10/04/2024 sodium chloride 0.9% flush 0.5-20 mL 2 09/15 Diet Count Last Ordered Date First Orde red Date ADULT DISCHARGE DIET 1 10/04/2024 Nursing Count Last Ordered Date First Orde red Date DISCHARGE ACTIVITY 1 10/04/2024 DISCHARGE CALL PROVIDER 10 10/04/2024 Discharge Count Last Ordered Date First Orde red Date DISCHARGE PATIENT 1 10/04/2024 documented in this encounter Care Teams Spray Unit Feeder Relationship Specialty Start Date End Date Larry Morel MD PCP - General Family Medicine 12/05/19 Noam Horn MD [address] [place] [address] Referring Physician Endocrinology Diabetes & Metabolism 07/29/20 Hao Perez MD [address] [place] [address] Referring Physician Ophthalmology 07/29/20 documented as of this encounter
--- OUTSIDE RECORDS SUMMARY | 2024-10-05 02:58 | XMS_ITS | Encounter Summary ---
Author Organization [facility] Address 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 Gender Identity Male 09/13/2024 10:33 AM CDT Sexual Orientation Straight 09/13/2024 10 :33 AM CDT documented as of this encounter Plan of Treatment Upcoming Encounters Date Type Department Care Team (Late st Contact Info) Description 10/24/2024 9:30 AM CDT Office Visit [facility] Oncology and Hematology - [place] [address] [facility] [address] [place] [address] Mikael Gomes MD [address] [facility] [address] [place] [address] documented as of this encounter [...] FLUIDS AND STOOLS Edited Performing Organization Address [facility] de Phone Number INTERFACE SYSTEM Refer to clinic/hospital department * (ABNORMAL) GLUCOSE, CSF (08/31/2006 10:25 AM CDT) GLUCOSE, CSF 95(H) 40 - 70 mg/dL INTERFACE SYSTEM 08/31/2006 10:2 5 AM CDT Cornelius Orlando MD BODY FLUIDS AND STOOLS Edited Performing Organization Address [facility] de Phone Number INTERFACE SYSTEM Refer to [...] FLUIDS AND STOOLS Edited Performing Organization Address [facility] Phone Number INTERFACE SYSTEM Refer to clinic/hospital department documented in this encounter Visit Diagnoses Diagnosis Spinal stenosis, lumbar region, without neurogenic claudication- Primary documented in this encounter Care Teams Insurance Clerk Relationship Specialty Start Date End Date Pantera oBlivar MD [address] [place] [id number] PCP - General 05/02/15 documented as of this encounter
--- OUTSIDE RECORDS SUMMARY | 2024-10-05 02:58 | XMS_ITS | Encounter Summary ---
Author Organization [facility] Address [address] [place] [address] Care Team Providers Care Administrative Program Specialist Name Role Phone Larry Morel MD Primary Care Provider [phone] Noam Horn MD Unavailable [phone] Hao Perez MD Unavailable [phone] Reason for Visit * Auth/Cert (Routine) Specialty Diagnoses / Procedures Referred By Ayesha rollins Referred To Contact Diagnoses Gross hematuria Gross hematuria [R31.0] Procedures ID CYSTO W/REMOVAL OF LESIONS SMALL ID CYSTOURETHROSCOPY WITH BIOPSY Cystoscopy, Fulguration of Bladder Possible Bladder Biopsy Referral ID Status Reason Start Date Expiration Date Visits Re quested Visits Authorized [id number] 1 1 Encounter Details Date Type Department Care Team (Late st Contact Info) Description 10/04/2024 1:29 PM CDT Anesthesia Event [facility] Operating Room [address] [place] [address] Tonny Stafford DO [address] [place] [address] Janae Campo CRNA [address] [place] [address] Anesthesia Record Procedure Summary Procedure Name Responsible Anesthesiologist Anesthesia Start Time Anesthesia Stop Time Cystoscopy (Urethra) Tonny Stafford DO 10/04/24 1329 10/04/24 1410 Events Date Time Event Comment 10/04/2024 1124 1329 An Start 1329 An Start Data 1330 In Room 1335 An Induction The patient was reevaluated immediately before moderate or deep sedation use and before anesthesia induction. 1336 An LMA 1336 Anesthesia Ready 1345 Proc Start 1402 An Extubation 1402 an stop data 1403 Proc Fin 1405 Out of Room 1410 Handoff to RN I completed my handoff to the receiving nurse during which we: 1. Patient identified 2. Responsible provider identified 3. Pertinent medical history reviewed 4. Procedure type and surgical course discussed 5. Intraoperative anesthetic management and any significant issues discussed 6. Expectations and concerns for postop period discussed 7. Questions solicited from receiving nurse 8. Patient disposition at the time of handoff: PACU 1410 An Stop Meds Name Total fentaNYL 200 mcg lidocaine (CARDIAC) syringe 2 % 5 mL propofol 200 mg glycopyrrolate 0.4 mg ondansetron 4 mg ceFAZolin (ANCEF) 2,000 mg/20 mL in ster ile water (premix) 2,000 mg 2,000 mg Lactated Ringer's (LR) infusion 800 mL * Agents Name O2% N2O O2 N2O Air Sevoflurane Inspired Sevoflurane * Blood No blood administrations on file. Lines, Drains, and Airways Type Details Placement Removal Wound 10/04/24; 1351; Non-incision; Penis 10/04/24 1351 by Pierce Gomez, MATTHEW Peripheral IV Placement Date: 10/04/24; Placement Time: 1130; Catheter Size: 22 G; Orientation: Left; Location: Forearm; Site Prep: Chlorhexidine; Technique: Anatomical landmarks; Inserted by: Qi CASTRO; Insertion Attempts: 1; Patient Tolerance: Tolerated well; Removal Date: 10/04/24; Removal Time: 1605 10/04/24 1130 by Kandy Wei RN 10/04/24 1605 by Tonya Mccullough RN Supraglottic Airway Placement Date: 10/04/24; Placement Time: 1341 (created via procedure documentation); Mask Ventilation: 0; Size: 5; Insertion Attempts: 1; Comments: Atraumatic. Lips, teeth, tongue, mouth same as perop. 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 Procedure Summary Date: 10/04/24 Room / Location: [facility] OPERATING ROOM 21 / [facility] OPERATING ROOM Anesthesia Start: 1329 Anesthesia Stop: 1410 Procedures: Cystoscopy (Urethra) Transurethral Resection of a Bladder Tumor (Urethra) Diagnosis: Gross hematuria (Gross hematuria [R31.0]) Surgeons: Rell Worthy MD Responsible Provider: Tonny Stafford DO Anesthesia Type: general ASA Status: 3 Anesthesia Type: general Last vitals BP 142/77 Pulse 87 Temp 37.2 ??C (98.9 ??F) (Temporal) Resp 14 SpO2 96% Anesthesia Post Evaluation Patient location during evaluation: PACU Patient participation: complete - patient participated Level of consciousness: follows simple commands and fully awake Pain management: adequate Airway patency: adequate Cardiovascular status: acceptable and hemodynamically stable Respiratory status: acceptable Hydration status: acceptable Pt is: normothermic Nausea/Vomiting status: none No notable events documented. * Anesthesia Procedure Notes - Janae Campo CRNA - 10/04/2024 1:40 PM CDT Associated Order(s): Airway Airway Patient location: OR Urgency: elective Indications for airway management: anesthesia Difficult airway: no Staff: Supervising provider: Tonny Stafford DO Placed by: MOLD TOOLER: Janae Campo CRNA Emergent airway documentation: Risks and benefits discussed: yes Consent obtained: yes Consent given by: patient Airway prep: Preoxygenated: yes Patient position: sniffing Mask difficulty assessment: 0 - not attempted Sedation level during airway: GA Final airway details: Final airway type: supraglottic airway Final supraglottic airway: [place] SGA size: 5 Number of attempts: 1 Additional comments: Atraumatic. Lips, teeth, tongue, mouth same as perop. Head and neck nuetral * Anesthesia Preprocedure Evaluation - Tonny Stafford DO - 10/03/2024 10:25 AM CDT Anesthesia Evaluation Roscoe Pérez SrWong is a 74 y.o. male with history of gross hematuria who presents today for presurgical evaluation of Cystoscopy, Fulguration of Bladder, Possible Bladder Biopsy by Rell Worthy MD Cystoscopy, Fulguration of Bladder (Urethra) Possible Bladder Biopsy (Urethra) Pre-Op Diagnosis Codes: * Gross hematuria [R31.0] HISTORY Past Medical History Information obtained from: patient and chart. Information obtained during: Telephone Visit NOTE: This note represents a preoperative evaluation initiated via virtual (video or telephone) interview. NO PHYSICAL EXAM was performed at the time of initial assessment. A physical exam may be added to this note and documented below. 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 + TIA Date of last TIA: 07/2024. Comments: Per vascular surgery Dr. Guzman on 08/08/2024: will not benefit from ECA endarterectomy, risks far outweigh benefits. 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 now on chronic AC , was seen by heme/onc Dr Alon[facility] for Factor V leiden deficiency) Number of DVT/PE episodes: 2. Respiratory + Sleep apnea (ISHMAEL) Prescribed device: CPAP and PAP compliant. Hepatic / Heme Hepatic/Heme system: negative Gastrointestinal + GERD - on daily therapy. Asymptomatic. Comments: Dysphagia in past - no issues since esophageal stretching. Renal / + Nephrolithiasis (remote hx) Musculoskeletal/Pain + Chronic pain - back pain. + Chronic opioid use (Tramadol) - daily. + Osteoarthritis Endocrine / Other + Diabetes mellitus (Dexcom glucometer ) - Diabetes type 2. Diabetic complications: neuropathy. Outpatient insulin use: current. Pt reported low glucose range is 94. Pt reported high glucose range is 180. + Thyroid disease (acquired hypothyroidism after being treated w GARCIA; no recent change in dose) - hypothyroidism + Obesity (BMI >30) (32.46 kg/min) + Cancer history- s/p chemo. Cancer type: Bladder Ca. 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 Functional Capacity Functional capacity: 4-6 METs Comments: Able to able 2 flights @ mod pace w/o SOB or CP Review of Systems + chronic pain Pertinent negatives: SOB; chest pain and heartburn Patient Active Problem List Diagnosis Date Noted Gross hematuria 09/29/2024 TIA (transient ischemic attack) 08/04/2024 Gluteal tendinitis 06/27/2024 Osteoarthritis of knee 04/21/2022 Pain in joint of right hip 03/25/2022 Essential hypertension 06/16/2021 Calculus of kidney 06/16/2021 Chronic pain syndrome 03/25/2021 Enthesopathy of hip region 03/25/2021 Lumbosacral spondylosis without myelopathy 03/25/2021 Spinal enthesopathy 03/25/2021 Osteoarthritis of carpometacarpal (CMC) joint of right thumb 07/29/2020 Osteoarthritis of metacarpophalangeal (MCP) joint of right index finger 07/29/2020 Past Medical History: Diagnosis Date Arthritis Arthritis [...] bursitis Hyperlipidemia Hyperlipidemia Hypertension Hypertension Motion sickness Past Surgical History: Procedure Laterality Date CERVICAL FUSION cervical fusion EYE SURGERY LAMINECTOMY laminectomy OTHER SURGICAL HISTORY R meniscus repair OTHER SURGICAL HISTORY L total hip replacement Allergies Allergen Reactions Bactrim [Sulfamethoxazole-Trimethoprim] Hives Unsure if caused by bactrim or pyridium Pyridium [Phenazopyridine] Hives Patient states he is unsure if he got hives from Pyridium or Bactrim. Current Outpatient Medications: apixaban (ELIQUIS) 5 mg tablet aspirin 81 mg enteric coated tablet atenolol (TENORMIN) 50 mg tablet celecoxib (CeleBREX) 200 mg capsule clopidogreL (PLAVIX) 75 mg tablet cyanocobalamin (Vitamin B-12) 1,000 mcg tablet fenofibrate micronized (LOFIBRA) 200 mg capsule gabapentin (NEURONTIN) 300 mg capsule hydrOXYzine (ATARAX) 25 mg tablet insulin glargine 100 unit/mL vial for injection insulin glargine 100 unit/mL vial for injection insulin lispro (HumaLOG, ADMELOG) 100 unit/mL vial for injection levothyroxine (SYNTHROID) 175 mcg tablet lidocaine-prilocaine cream metFORMIN XR (GLUCOPHAGE XR) 500 mg 24 hr tablet multivitamin capsule NovoLOG 100 unit/mL (3 mL) pen for injection omeprazole (PriLOSEC) 20 mg capsule Ozempic 1 mg/dose (4 mg/3 mL) pen injector injection rosuvastatin (CRESTOR) 20 mg tablet traMADol (ULTRAM) 50 mg tablet Social History Tobacco Use Smoking Status Former Current packs/day: 0.00 Types: Cigarettes Quit date: 1983 Years since quittin.4 Smokeless Tobacco Never Alcohol Use: Alcohol Misuse (08/01/2020) AUDIT-C Frequency of Alcohol Consumption: 2-3 times a week Average Number of Drinks: 3 or 4 Frequency of Binge Drinking: Never Substance and Sexual Activity Drug Use Defer Family History Problem Relation Age of Onset Cancer Father Family history of malignant neoplasm - (Added by TW Conv) Arthritis Father Family history of arthritis - (Added by TW Conv) Arthritis Mother Family history of arthritis - (Added by TW Conv) Hypertension Mother Family history of hypertension - (Added by TW Conv) Anesthesia problems Neg Hx There were no vitals filed for this visit. DOS Physical Exam Medical history, medications, and allergies reviewed. Attestation: With today's edits, I endorse the findings of the anesthesia pre-evaluation assessment dated: 10/04/2024. Airway Exam: Mallampati: II Cervical ROM: FROM Cardiovascular Exam: Rate: regular Rhythm: regular Pulmonary Exam: (Non-labored breathing) Dental Exam: Appears intact Current state: Patient's current state is cooperative. CBC Lab Results Component Value Date WBC 5.2 08/06/2024 RBC 4.78 08/06/2024 HGB 15.2 08/06/2024 HCT 47.4 08/06/2024 LABPLAT 256 08/06/2024 MCV 99.2 (H) 08/06/2024 MCH 31.8 08/06/2024 MCHC 32.1 (L) 08/06/2024 MPV 11.3 08/06/2024 hgbA1C Lab Results Component Value Date HGBA1C 7.1 (H) 08/05/2024 BMP Lab Results Component Value Date SODIUM 135 08/05/2024 POTASSIUM 3.8 08/05/2024 CHLORIDE 102 08/05/2024 CO2 23 08/05/2024 ANIONGAP 10 08/05/2024 BUNSER 16 08/05/2024 CREATININE 0.94 08/05/2024 GFRNAA 85 08/05/2024 CALCIUM 9.6 08/05/2024 ECG: Results Procedure Component Value Units Date/Time ECG 12 lead [[id number]] Collected: 08/04/241836 Order Status: Completed Updated: 08/05/24 7753 Narrative: Vent Rate: 68 bpm RR Interval: 875 msec ID Interval: 194 msec QRS Duration: 96 msec QT Interval: 380 msec QTC Interval: 397 msec P-R-T [place]: -8 - -21 - 16 degrees IMPRESSION: SINUS RHYTHM BORDERLINE LEFT AXIS DEVIATION LOW QRS VOLTAGE IN PRECORDIAL LEADS BORDERLINE ECG Electronically Signed By: Kevin Winter [facility] Card CTA Stroke head and neck 07/2024: No CT evidence of stroke. No acute intracranial abnormality. 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 ECHO 07/2024: 1. Normal global and regional left ventricular systolic function. Ejection Fraction is estimated at 55-60 %. Normal left ventricular cavity size. Mild concentric left ventricular hypertrophy. 2. Normal right ventricular systolic function. Normal right ventricular size. 3. Normal appearing atrial septum. Saline contrast study negative for R to L shunt. No labs required per anesthesia guidelines This is a 74 y.o. male with no clinical risk factors per ACC/AHA guidelines with moderate functional capacity presents for an intermediate risk procedure. DOS instructions reviewed with patient. SEC evaluation complete. Anesthesia Plan ASA 3 My patient is approved for the Anesthesia Controlled Medication protocol when under care of a MOLD TOOLER Planned anesthesia: General Team communication plan: LMA Induction: Induction: intravenous. Postoperative Plan: No postoperative mechanical ventilation intended. Patient's planned disposition post procedure is Outpatient. Informed Consent: Discussed plan with MOLD TOOLER. Anesthesia plan and risks discussed with patient. Consent and Attending signature: I and/or my designee have discussed the anesthesia plan, benefits, possible alternatives, parental presence at time of induction (if indicated), and clinically relevant risks that may include dental injury, unintentional awareness, and/or other complications. The patient and/or parent/legal guardian understand, and agree to proceed. All questions answered. documented in this encounter Plan of Treatment Not on file documented as of this encounter Procedures Procedure Name Priority Date/Time Associated Diagnosis Comments ID AN PROCEDURE PLACEHOLDER Routine 10/04/2024 1:40 PM CDT ID AN ELECTIVE SUPRAGLOTTIC AIRWAY Routine 10/04/2024 1:40 PM CDT documented in this encounter Results * ID AN ELECTIVE SUPRAGLOTTIC AIRWAY, ID AN PROCEDURE PLACEHOLDER (10/04/2024 1:40 PM CDT) Narrative Janae Campo CRNA - 10/04/2024 1:40 PM CDT Janae Campo CRNA 10/04/2024 1:41 PM Airway Patient location: OR Urgency: elective Indications for airway management: anesthesia Difficult airway: no Staff: Supervising provider: Tonny Stafford DO Placed by: MOLD TOOLER: Janae Campo CRNA Emergent airway documentation: Risks and benefits discussed: yes Consent obtained: yes Consent given by: patient Airway prep: Preoxygenated: yes Patient position: sniffing Mask difficulty assessment: 0 - not attempted Sedation level during airway: GA Final airway details: Final airway type: supraglottic airway Final supraglottic airway: [place] SGA size: 5 Number of attempts: 1 Additional comments: Atraumatic. Lips, teeth, tongue, mouth same as perop. Head and neck nuetral Tonny Stafford DO ANESTHESIA ORDERABLES Final Result documented in this encounter Visit Diagnoses Not on filedocumented in this encounter Administered Medications Inactive Administered Medications - up to 3 most recent administrations Medication Order MAR Action Action Date Dose Rate Site ceFAZolin (ANCEF) 2,000 mg/20 mL in sterile water (premix) 2,000 mg 2,000 mg, intravenous, at 400 mL/hr, Administer over 3 Minutes, Once, On Wed10/04/24 at 1115, For 1 dose, Pre-Op, Administer within 60 minutes of incision., Indications: Prophylaxis, SurgicalIndications:Prophylaxis, Surgical Given 10/04/2024 1:39 PM CDT 2,000 mg fentaNYL (SUBLIMAZE) preservative free injection intravenous, As needed, Starting on Wed10/04/24 at 1329, Anesthesia Intra-op Given 10/04/2024 1:50 PM CDT 50 mcg Given 10/04/2024 1:49 PM CDT 50 mcg Given 10/04/2024 1:35 PM CDT 50 mcg glycopyrrolate (ROBINUL) injection intravenous, Administer over 1 Minutes, As needed, Starting on Wed10/04/24 at 1355, Anesthesia Intra-op Given 10/04/2024 1:56 PM CDT 0.2 mg Given 10/04/2024 1:55 PM CDT 0.2 mg Lactated Ringer's (LR) infusion 30 mL/hr, intravenous, Continuous, Starting on Wed10/04/24 at 1115, Pre-Op Restarted 10/04/2024 1:55 PM CDT Rate/Dose Verify 10/04/2024 1:29 PM CDT 30 mL/h r New Bag 10/04/2024 11:30 AM CDT 30 mL/hr 30 mL/hr lidocaine (cardiac) (XYLOCAINE) preservative free injection intravenous, As needed, Starting on Wed10/04/24 at 1335, Anesthesia Intra-op, Indications: Ventricular ArrhythmiasIndications:Ventricular Arrhythmias Given 10/04/2024 1:35 PM CDT 5 mL ondansetron (ZOFRAN) injection intravenous, Administer over 2 Minutes, As needed, Starting on Wed10/04/24 at 1342, Anesthesia Intra-op Given 10/04/2024 1:42 PM CDT 4 mg propofoL (DIPRIVAN) 10 mg/mL IV intravenous, As needed, Starting on Wed10/04/24 at 1335, Anesthesia Intra-op Given 10/04/2024 1:35 PM CDT 200 mg documented in this encounter Care Teams Administrative Program Specialist Relationship Specialty Start Date End Date Larry Morel MD PCP - General Family Medicine 12/05/19 Noam Horn MD [address] [place] [address] Referring Physician Endocrinology Diabetes & Metabolism 07/29/20 Hoa Perez MD [address] [place] [address] Referring Physician Ophthalmology 07/29/20 documented as of this encounter
--- OUTSIDE RECORDS SUMMARY | 2024-10-05 02:58 | XMS_ITS | Encounter Summary ---
Author Organization [facility] Address [address] [place] [address] Care Team Providers Care Recruiting And Selection Consultant Name Role Phone Pantera Bolivar MD Primary Care Provider [phone] Encounter Details Date Type Department Care Team (Late st Contact Info) Description 09/14/2000 Outpatient [facility] [address] [facility] 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 Gender Identity Male 09/13/2024 10:33 AM CDT Sexual Orientation Straight 09/13/2024 10 :33 AM CDT documented as of this encounter Plan of Treatment Upcoming Encounters Date Type Department Care Team (Late st Contact Info) Description 10/24/2024 9:30 AM CDT Office Visit [facility] Oncology and Hematology - [place] [address] [place] [address] Mikael Gomes MD [address] [facility] [address] [place] [address] documented as of this encounter Visit Diagnoses Not on filedocumented in this encounter Care Teams Recruiting And Selection Consultant Relationship Specialty Start Date End Date Pantera Bolivar MD [address] [place] [address] [address] [place] [id number] PCP - General 05/02/15 documented as of this encounter
--- OUTSIDE RECORDS SUMMARY | 2024-10-05 02:59 | XMS_ITS | Encounter Summary ---
Author Organization [facility] Address 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 Gender Identity Male 09/13/2024 10:33 AM CDT Sexual Orientation Straight 09/13/2024 10 :33 AM CDT documented as of this encounter Plan of Treatment Upcoming Encounters Date Type Department Care Team (Late st Contact Info) Description 10/24/2024 9:30 AM CDT Office Visit [facility] Oncology and Hematology - [place] [address] [place] [address] [facility] [address] [place] [address] Mikael Gomes MD [address] [place] [address] documented as of this encounter Procedures Procedure Name Priority Date/Time Associated Diagnosis Comments MRI LUMBAR W WO CONTRAST Timed Study 09/20/2007 9:13 AM CDT documented in this encounter Results * MRI LUMBAR W WO CONTRAST (09/20/2007 9:13 AM CDT) Anatomical Region Laterality Modality Spine Other 09/20/2007 9:13 AM CDT Narrative 09/20/2007 12:10 PM CDT [facility] [address] [facility] [address] [place], [place] [address] Admit Date: 09/20/2007 GIL PÉREZ Sex: M Admit Prov: ANICETO RAMIREZ Date: 1950 Primary Care Prov: REBEKAH WOODS CMRN: [id number] Room: [facility] SSN: [id number] IMAGING SERVICES Ordering Prov: N/A Accession Number: [id number] Interpretation MRI LUMBAR SPINE WITHOUT AND WITH [...] 11:11 Procedure Note Cee Pruett - 09/20/2007 [facility] [address] [place], [place] [address] Admit Date: 09/20/2007 BETO GIL J Sex: M Admit Prov: ANICETO RAMIREZ Date:1950 Primary Care Prov: REBEKAH WOODS CMRN: [id number] Room: MRI-A SSN: [id number] IMAGING SERVICES Ordering Prov: N/A Interpretation MRI LUMBAR SPINE WITHOUT AND WITH IV CONTRAST 09/20/07 History: Bilateral leg pain and numbness, prior L5-S1 surgery [id number]. Lumbar sequences were performed, but are somewhat [...] PRUETT 09/20/2007 12:10 Transcribed: 09/20/2007 11:11 Aniceto Ramirez DO MR ORDERABLES Final Result documented in this encounter Visit Diagnoses Diagnosis Backache, unspecified documented in this encounter Care Teams Rotary Derrick Operator Relationship Specialty Start Date End Date Rebekah Woods MD [address] [place] [address] [address] [place] [address] PCP - General 05/02/15 documented as of this encounter
--- OUTSIDE RECORDS SUMMARY | 2024-10-05 02:59 | XMS_ITS ---
Author Organization [facility] Address [address] [address] Care Team Providers Care Product Examiner Name Role Phone Larry Morel Primary Care Provider Noam Gar Unavailable [phone] REASON FOR VISIT Refill MEDICATIONS Medication SIG (Take, Route, Frequency, Duration) Notes Start Date End Date Status HumaLOG KwikPen 100 UNIT/ML per moderate dose sliding scale Subcutaneous three times a day max Daily Dose 50 Units for 90 days Active Encounters Encounter Location Date Provider Diagnosis [facility] [address] [address] 08/08/2024 Noam Horn Type 2 diabetes mellitus with hyperglycemia E11.65 ASSESSMENTS Encounter Date Diagnosis Assessment Notes Treatment Notes Treatment Clinical Notes 08/08/2024 Type 2 diabetes mellitus with hyperglycemia (ICD-10 - E11.65) PLAN OF TREATMENT Medication Medication Name Sig Start Date Stop Date Notes HumaLOG KwikPen 100 UNIT/ML per moderate dose sliding scale Subcutaneous three times a day max Daily Dose 50 Units for 90 days Next Appt Details Provider Name:Noam Hron, 10/05/2024 01:00:00 PM, [address], [address],
--- OUTSIDE RECORDS SUMMARY | 2024-10-05 02:59 | XMS_ITS ---
Author Organization [facility] Address [address] [address] Care Team Providers Care Aeronautical Engineering Technologist Name Role Phone Larry Morel Primary Care Provider Noam Gar Unavailable [phone] REASON FOR VISIT Refill MEDICATIONS Medication SIG (Take, Route, Frequency, Duration) Notes Start Date End Date Status Lantus SoloStar 100 UNIT/ML INJECT 45 UNITS IN THE MORNING AND 85 UNITS IN THE EVENING UNDER THE SKIN DAILY for 90 days Active Encounters Encounter Location Date Provider Diagnosis [facility] [address] [place] [address] 09/06/2024 Noma Horn Type 2 diabetes mellitus with hyperglycemia E11.65 ASSESSMENTS Encounter Date Diagnosis Assessment Notes Treatment Notes Treatment Clinical Notes 09/06/2024 Type 2 diabetes mellitus with hyperglycemia (ICD-10 - E11.65) PLAN OF TREATMENT Medication Medication Name Sig Start Date Stop Date Notes Lantus SoloStar 100 UNIT/ML INJECT 45 UN ITS IN THE MORNING AND 85 UNITS IN THE EVENING UNDER THE SKIN DAILY for 90 days Next Appt Details Provider Name:Noam Horn, 10/05/2024 01:00:00 PM, [address], [address],
--- OUTSIDE RECORDS SUMMARY | 2024-10-05 02:59 | XMS_ITS | Encounter Summary ---
Author Organization [facility] Address [address] [place] [address] Care Team Providers Care Tableau Lead Name Role Phone Pantera Bolivar MD Primary Care Provider [phone] Encounter Details Date Type Department Care Team (Late st Contact Info) Description 09/02/2007 Outpatient Historical [facility] DEPT James Aniceto NenaDO [address] [place] [address] Unspecified Backache Social History Tobacco Use Types Packs/Day Years Used Date Smoking Tobacco: Never Assessed Sex and Gender Information Value Date Recorded Sex Assigned at Not on file Legal Sex Male 3:22 AM [employer] Gender Identity Male 09/13/2024 10:33 AM CDT Sexual Orientation Straight 09/13/2024 10 :33 AM CDT documented as of this encounter Plan of Treatment Upcoming Encounters Date Type Department Care Team (Late st Contact Info) Description 10/24/2024 9:30 AM CDT Office Visit [facility] [place] [address] [place] [address] [facility] [address] [place] [address] Mikael Gomes MD [address] [facility] [address] [place] [address] documented as of this encounter Procedures Procedure Name Priority Date/Time Associated Diagnosis Comments POC CREATININE Routine 09/02/2007 7:18 AM CDT documented in this encounter Results * POC CREATININE (09/02/2007 7:18 AM CDT) CREATININE POC 1.0 0.6 - 1.3 mg/dL [facility] Capillary blood specimen (specimen) 09/02/2007 7:18 AM CDT 09/02/2007 7:18 AM CDT us Aniceto Ramirez DO POINT OF CARE TESTING Final R esult [facility] [address] [place] [address] documented in this encounter Visit Diagnoses Diagnosis Backache, unspecified documented in this encounter Care Teams Tableau Lead Relationship Specialty Start Date End Date Pantera Bolivar MD [address] [place] [address] [address] [address] PCP - General 05/02/15 documented as of this encounter
--- OUTSIDE RECORDS SUMMARY | 2024-10-05 03:00 | XMS_ITS | Clinical Summary ---
Author Organization [facility] Address [address] [place] [address] Phone Care Team Providers Care Jig Mill Operator Name Role Phone Larry Morel MD Primary Care Provider [phone] Allergies No known active allergies Medications atenolol (TENORMIN) 50 MG tablet Take 50 mg by mouth 1 (one) time each day 06/10/2021 Active celecoxib (CeleBREX) 200 MG capsule TAKE ONE CAPSULE BY MOUTH WITH FOOD NEEDED 04/28/2021 Active cyanocobalamin (VITAMIN B-12) 1000 MCG tablet Take by mouth daily 03/09/2020 Active fenofibrate micronized (LOFIBRA) 200 MG capsule 06/10/2021 Active gabapentin (NEURONTIN) 300 MG capsule Take 600 mg by mouth 1 (one) time each day 06/11/2021 Active hydroCHLOROthia zide (HYDRODIURIL) 25 MG tablet 06/10/2021 Active Lantus SoloStar 100 UNIT/ML injection 06/12/2021 Active HumaLOG KWIKPEN 100 UNIT/ML solution pen-injector 06/09/2021 Active TRUEplus 5-Bevel Pen Anthony 31G X 8 MM misc USE FIVE TIMES DAILY DIRECTED 06/03/2021 Active levothyroxine (SYNTHROID) 175 MCG tablet TAKE 1 TABLET BY MOUTH ONCE A DAY IN THE MORNING ON AN EMPTY STOMACH 06/13/2021 Active Multiple Vitamin (multivitamin) capsule Take 1 capsule by mouth daily Active omeprazole (PriLOSEC) [address] capsule 06/12/2021 Activ e phenazopyridine (PYRIDIUM) 200 MG tablet 05/22/2021 Active potassium chloride (KLOR-CON) 10 MEQ CR tablet 06/10/2021 Activ e rosuvastatin (CRESTOR) 10 MG tablet 06/10/2021 Active [...] at Not on file Legal Sex Male 8:47 AM [facility] Gender Identity Not on file Sexual Orientation [...] Medium Risk (1 of 4 - PCV) 1999 Influenza Vaccine (Season Ended) 2025 Insurance MEDICARE [facility] [employer] Care Teams Jig Mill Operator Relationship Specialty Start Date End Date Larry Morel MD [address] [place] [address] PCP - General Family Medicine 04/28/21
--- OUTSIDE RECORDS SUMMARY | 2024-10-05 03:00 | XMS_ITS ---
Author Organization [facility] Address [address] [facility] [address], [place] [address] Care Team Providers Care Brake Repair Mechanic Name Role Phone Larry Morel Primary Care Provider AnnaNoam Martins Unavailable [phone] REASON FOR VISIT Refill MEDICATIONS Medication SIG (Take, Route, Fr equency, Duration) Notes Start Date End Date Status Omeprazole 20 MG 1 capsule Orally Onc e a day for 90 days Active Encounters Encounter Location Date Provider Diagnosis [facility] [address] [address] 09/06/2024 Noam Horn Type 2 diabetes mellitus with hyperglycemia E11.65 ASSESSMENTS Encounter Date Diagnosis Assessment Notes Treatment Notes Treatment Clinical Notes 09/06/2024 Type 2 diabetes mellitus with hyperglycemia (ICD-10 - E11.65) PLAN OF TREATMENT Medication Medication Name Sig Start Date Stop Date Notes Omeprazole 20 MG 1 capsule Orally Once a day for 90 days Next Appt Details Provider Name:Noam Horn, 10/05/2024 01:00:00 PM, [address], [address],
[2024-10-05 03:01] VITALS: BP 195/83; PULSE 86; RESP 17; TEMP 36.6; O2SAT 97
--- OUTSIDE RECORDS SUMMARY | 2024-10-05 03:01 | XMS_ITS | Patient Health Record ---
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) Active confirmed 63612782 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 [id number] PLAN OF TREATMENT No Information Insurance Providers Payer Name Payer Address Payer Phone Subscriber Number Group Number Insured Name Patient Relationship to Insured Coverage Start Date Coverage End Date MEDICARE SERVICES [address] [address] [place], [place] [id number] null, null Self - patient is the insured MEDICATIONS ADMINISTERED Medication Instructions Date of Administration Dosage Notes Bilateral L3-S1 MBPR (lumbar facet) RF Denervation with fluoroscopy 12/07/2019 Bilateral L4/5 and L5/S1 Fac et Joint Injections with Fluoroscopy 02/09/2019 Bilateral L4/5 and L5/S1 Fac et Joint Injections with Fluoroscopy 08/03/2019 Trigger Point Injection 12/21/2018
--- OUTSIDE RECORDS SUMMARY | 2024-10-05 03:01 | XMS_ITS | Referral Summary ---
Author Organization [facility] Address [address] [place] [address] Care Team Providers Care Visual Display Manager Name Role Phone Larry Morel MD Primary Care Provider [phone] Noam Horn MD Unavailable [phone] Hao Perez MD Unavailable [phone] Encounters Date Type Department Care Team Description 10/04/2024 12:30 PM CDT - 10/04/2024 1:45 PM CDT Surgery [facility] Operating Room [address] [place] [phone] Rell Worthy MD Cystoscopy 10/04/2024 1:29 PM CDT Anesthesia Event [facility] Operating Room [address] [place] [phone] Tonny Stafford DO Eubanks, Marianna, MANA 10/04/2024 10:19 AM CDT - 10/04/2024 4:10 PM CDT Hospital Encounter [facility] Operating Room [address] [place] [phone] Rell Worthy MD Gross hematuria Discharge Disposition: Discharge to home or self care 10/03/2024 12:00 PM CDT Pre-Admission Testing [facility] Pre Anesthesia Testing [address] [place] [phone] 10/02/2024 Telephone [facility] Pre Anesthesia Testing [address] [place] [address] Marium Morse 08/29/2024 9:20 AM CDT Office Visit [facility] Orthopaedic Surgery [address] [facility] 6th [place] [address] [place] [phone] Issa Montana MD Arthritis of carpometacarpal (CMC) joint of left thumb (Primary Dx); Arthritis, degenerative, localized, primary, hand, left 08/04/2024 6:33 PM CDT - 08/06/2024 3:00 PM CDT Hospital Encounter [facility] [address] [place] [address] Almita Hickey MD Li, MD Harsha Harding, DO Kurtis Marte Anshu, MD TIA (transient ischemic attack) (Primary Dx) Discharge Disposition: Discharge to home or self care from Last 3 Months Allergies Active Allergy Reactions Criticality Noted Date Comments Sulfamethoxazole-Trimethoprim Hives Medium 2023 Unsure if caused by bactrim or pyridium Phenazopyridine Hives Medium 04/08/2024 Patient states he is unsure if he got hives from Pyridium or Bactrim. Medications traMADol (ULTRAM) 50 mg tablet Take 1 tablet (50 mg total) by mouth every 6 (six) hours as needed for pain 4 Active omeprazole (PriLOSEC) 20 mg capsule Take 1 capsule (20 mg total) by mouth every morning 1 9 Active gabapentin (NEURONTIN) 300 mg capsule Take 1 capsule (300 mg total) by mouth 2 (two) times a day 0 9 Active fenofibrate micronized (LOFIBRA) 200 mg capsuleIndicat ions:hyperlipi demia Take 1 capsule (200 mg total) by mouth every morning 0 9 Active celecoxib (CeleBREX) 200 mg capsule Take 1 capsule (200 mg total) by mouth 2 (two) times a day 0 9 Active atenolol (TENORMIN) 50 mg tablet Take 1 tablet (50 mg total) by mouth every morning 1 9 Active cyanocobalamin (Vitamin B-12) 1,000 mcg tablet Take 1 tablet (1,000 mcg total) by mouth every morning 0 Active multivitamin capsule Take 1 capsule by mouth every morning Active levothyroxine (SYNTHROID) 175 mcg tablet Take 1 tablet (175 mcg total) by mouth every morning 1 Active metFORMIN XR (GLUCOPHAGE XR) 500 mg 24 hr tablet Take 2 tablets (1,000 mg total) by mouth 2 (two) times a day 3 Active Ozempic 1 mg/dose (4 mg/3 mL) pen injector injectionIndic ations:type 2 diabetes mellitus Inject 1 mg under the skin once a week Takes on Wednesday 4 Active apixaban (ELIQUIS) 5 mg tablet Take 1 tablet (5 mg total) by mouth 2 (two) times a day Active lidocaine-pril ocaine cream Apply 1 g (1 Application total) topically as needed (port access) 4 Active insulin lispro (HumaLOG, ADMELOG) 100 unit/mL vial for injection Inject under the skin 3 (three) times a day before meals Per sliding scale Active insulin glargine 100 unit/mL vial for injection Inject 85 Units under the skin nightly Active insulin glargine 100 unit/mL vial for injection Inject 45 Units under the skin every morning Active aspirin 81 mg enteric coated tablet Take 1 tablet (81 mg total) by mouth every morning Active rosuvastatin (CRESTOR) 20 mg tablet Take 1 tablet (20 mg total) by mouth nightly 30 tablet 5 08/07/19 26 Active clopidogreL (PLAVIX) 75 mg tablet Take 1 tablet (75 mg total) by mouth daily 30 tablet 5 10/04/19 25 Discontin ued(Error ) NovoLOG 100 unit/mL (3 mL) pen for injection 5 10/04/19 25 Discontin ued(Error ) hydrOXYzine (ATARAX) 25 mg tablet Take 1 tablet (25 mg total) by mouth 3 (three) times a day as needed 5 10/04/19 25 Discontin ued(Error ) Active Problems Problem Noted Date Diagnosed Date Gross hematuria 09/29/2024 TIA (transient ischemic attack) [...] (07/29/2020): Added automatically from request for surgery [id number] 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 07/29/2020 Overview (07/29/2020): Added automatically from request for surgery [id number] Immunizations Immunization Administration Dates Next Due Influenza, [...] on file Legal Sex Male 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 Gender Identity Not on file Sexual Orientation [...] Mass Index 27.72 10/04/2024 11:02 AM CDT Plan of Treatment Not on file Medical Devices Implanted Type Area Barrel Filler Head Device Identifier Shelf Expiration Date Model / Serial / Lot [employer] Ar-8978-Cp Internalbrace Kit Hand Wrist Set Implant Ligament Augmentation - [id number] Implanted:Qty: 1 on 08/14/2020 by Issa Montana MD at [facility] Right: Thumb [employer] [id number] 06/16/2025 AR-8978-C P / / [id number] Small Bone [employer] Mcp-50 Mcp 50 Joint Finger Silicone Ii Sterile Latex Free - [id number] Implanted:Qty: 1 on 08/14/2020 by Issa Montana MD at [facility] Right: Index Finger [facility] [id number] 01/14/2023 MCP-50 / / [id number] Procedures Procedure Name Priority Date/Time Associated Diagnosis Comments POCT GLUCOSE DEVICE Routine 10/04/2024 2 :19 PM CDT OR AN PROCEDURE PLACEHOLDER Routine 10/04/2024 1:40 PM CDT OR AN ELECTIVE SUPRAGLOTTIC AIRWAY Routine 10/04/2024 1:40 PM CDT BIOPSY BLADDER - CYSTOSCOPY 10/04/2024 1:30 PM CDT Gross hematuria CYSTOSCOPY CLOT EVACUATION 10/04/2024 1:30 PM CDT Gross hematuria POCT GLUCOSE DEVICE Routine 10/04/2024 11:08 AM CDT OR ARTHROCENTESIS ASPIR&/INJ SMALL JT/BURSA W/O US Routine 08/29/2024 9:20 AM CDT Arthritis, degenerative, localized, primary, hand, left OR ARTHROCENTESIS ASPIR&/INJ SMALL JT/BURSA W/O US Routine 08/29/2024 9:20 AM CDT Arthritis of carpometacarpal (CMC) joint of left thumb MCT - MOBILE CARDIAC TELEMETRY EVENT MONITOR Routine 08/06/2024 12:50 PM CDT TIA (transient ischemic attack) POCT GLUCOSE DEVICE Routine 08/06/2024 11:40 AM CDT POCT GLUCOSE DEVICE Routine 08/06/2024 7 :50 AM CDT DIFFERENTIAL AUTO Routine 08/06/2024 7:3 3 AM CDT CBC WITH AUTO DIFFERENTIAL Routine 08/06/2024 7:33 AM CDT POCT GLUCOSE DEVICE Routine 08/05/2024 8 :01 PM CDT POCT GLUCOSE DEVICE Routine 08/05/2024 4 :44 PM CDT TRANSTHORACIC ECHO (TTE) COMPLETE W DOPPLER/CF W CONTRAST Routine 08/05/2024 2:48 PM CDT POCT GLUCOSE DEVICE Routine 08/05/2024 11:38 AM CDT URINALYSIS, MICROSCOPIC ONLY Routine 08/05/2024 10:12 AM CDT URINE CULTURE Routine 08/05/2024 10:12 AM CDT URINALYSIS AND REFLEX TO MICROSCOPIC AND CULTURE Routine 08/05/2024 10:12 AM CDT POCT GLUCOSE DEVICE Routine 08/05/2024 7 :53 AM CDT T4, FREE Routine 08/05/2024 6:10 AM CDT EGFR Routine 08/05/2024 6:10 AM CDT LIPID PANEL Routine 08/05/2024 6:10 AM CDT HEMOGLOBIN A1C Routine 08/05/2024 6:10 AM CDT CBC WITHOUT DIFFERENTIAL Routine 08/05/2024 6:10 AM CDT PHOSPHORUS Routine 08/05/2024 6:10 AM CDT MAGNESIUM Routine 08/05/2024 6:10 AM CDT BASIC METABOLIC PANEL Routine 08/05/2024 6:10 AM CDT THYROID FUNCTION CASCADE Routine 08/05/2024 6:10 AM CDT POCT GLUCOSE DEVICE Routine 08/05/2024 5 :47 AM CDT POCT GLUCOSE DEVICE Routine 08/05/2024 1 :20 AM CDT MRI BRAIN WO CONTRAST ED 08/05/2024 12:30 AM CDT POCT GLUCOSE DEVICE Routine 08/04/2024 10:[address] STROKE PROTOCOL W WO CONTRAST ED Urgent/IP Urgent 08/04/2024 10:31 PM CDT EGFR STAT 08/04/2024 6:50 PM CDT DIFFERENTIAL AUTO STAT 08/04/2024 6:5 0 PM CDT COMPREHENSIVE METABOLIC PANEL STAT 08/04/2024 6:50 PM CDT CBC WITH AUTO DIFFERENTIAL STAT 08/04/2024 6:50 PM CDT POCT GLUCOSE DEVICE Routine 08/04/2024 6 :48 PM CDT ECG 12-LEAD STAT 08/04/2024 6:37 PM CDT from Last 3 Months Results * POCT glucose (10/04/2024 2:19 PM CDT) [facility] Glucose, POC 127 70 - 199 mg/dL Comment: For Glucose values <35 mg/dl when Hematocrit is >60 mg/dl,the test may not accurately detect significant hypoglycemia,and testing in the Laboratory should be considered if clinically indicated. POC Performer [id number] [facility] Blood 10/04/2024 2:19 PM CDT 10/04/2024 2:19 PM CDT Rell Worthy MD LAB POCT ORDERABLES - DEVICE F inal Result [facility] [address] Department [place] [address] * OR AN ELECTIVE SUPRAGLOTTIC AIRWAY, OR AN PROCEDURE PLACEHOLDER (10/04/2024 1:40 PM CDT) Narrative Janae Campo CRNA - 10/04/2024 1:40 PM CDT Janae Campo CRNA 10/04/2024 1:41 PM Airway Patient location: OR Urgency: elective Indications for airway management: anesthesia Difficult airway: no Staff: Supervising provider: Tonny Stafford DO Placed by: RESTAURANT MAINTENANCE TECHNICIAN: Janae Campo CRNA Emergent airway documentation: Risks and benefits discussed: yes Consent obtained: yes Consent given by: patient Airway prep: Preoxygenated: yes Patient position: sniffing Mask difficulty assessment: 0 - not attempted Sedation level during airway: GA Final airway details: Final airway type: supraglottic airway Final supraglottic airway: [place] SGA size: 5 Number of attempts: 1 Additional comments: Atraumatic. Lips, teeth, tongue, mouth same as perop. Head and neck nuetral us Tonny Stafford DO ANESTHESIA ORDERABLES Final Result * POCT glucose (10/04/2024 11:08 AM CDT) Glucose, POC 182 70 - 199 mg/dL Comment: For Glucose values <35 mg/dl when Hematocrit is >60 mg/dl,the test may not accurately detect significant hypoglycemia,and testing in the Laboratory should be considered if clinically indicated. POC Performer [id number] [facility] Blood 10/04/2024 11:0 8 AM CDT 10/04/2024 11:08 AM CDT us Rell Worthy MD LAB POCT ORDERABLES - DEVICE F inal Result [facility] [address] Department [place] [address] * OR ARTHROCENTESIS ASPIR&/INJ SMALL JT/BURSA W/O US (08/29/2024 9:20 AM CDT) Narrative Issa Montana MD - 08/29/2024 9:20 AM CDT Issa Montana MD 08/29/2024 10:53 AM Small Joint Injection: L index MCP Performed [...] the procedure well with no immediate complications Issa Montana MD IN CLINIC/BEDSIDE ORDERABLES Final Result * OR ARTHROCENTESIS ASPIR&/INJ SMALL JT/BURSA W/O US (08/29/2024 9:20 AM CDT) Narrative Issa Montana MD - 08/29/2024 9:20 AM CDT Issa Montana MD 08/29/2024 10:53 AM Small Joint Injection: L thumb CMC Performed [...] MD IN CLINIC/BEDSIDE ORDERABLES Final Result * MCT Mobile Cardiac Telemetry Event Monitor (08/06/2024 12:50 PM CDT) Anatomical Region Laterality Modality Electrocardiogra phy 09/04/2024 11:5 9 PM CDT Narrative 09/07/2024 12:30 PM CDT [address] [place] [address] CARDIAC EVENT MONITOR REPORT Patient Name: ROSCOE SUTHERLAND J : 1950 (74y 5m) Gender: M Study Date: 09/04/2024 11:59:00 PM Ht(Inch): Wt(Lb): BSA: Tech: Location: [address] Order Provider: GURDEEP HERRERA BMI: Ref Provider: GURDEEP HERRERA PROCEDURES: Cardiac Event Monitor: Cardiac Event Monitor. INDICATIONS: G45.9 Transient cerebral ischemic attack, unspecified. MEASUREMENTS: Holter Data Value Min Rate: 53 BPM Min Rate Timestamp: 12:35:00 Max Rate: 129 BPM Max Rate Timestamp: 09:48:00 Mean Rate: 74 BPM Singlets (PACs): 0 events Couplets (PACs): 0 events Runs (SVT): 0 events Singlets (PVCs): 0 events Couplets (PVCs): 0 events Runs (VT): 0 events Holter Data Value FINDINGS: Protocol: Total QRS: 0 Date Recorded: 2024-09-04 23:59:00 Date Processed: 2024-09-04 23:59:00 CONCLUSIONS: 1. Predominant rhythm is normal sinus rhythm. 2. Heart rate and rate variability is appropriate. 3. No prolonged pauses. 4. There are no supraventricular tachycardia events noted. 5. There are no ventricular tachycardia events noted. 6. The patient recorded no symptoms during the study. SUMMARY: Unremarkable cardiac event monitor study. No symptomatic episodes. Electronically Signed By: Reed Cohen MD [email or web address] 09/07/2024 12:29:14 PM CDT Procedure Note Reed Cohen MD - 09/07/2024 [address] [place] [address] CARDIAC EVENT MONITOR REPORT Patient Name: ROSCOE SUTHERLAND J : 1950 (74y 5m) Gender: M Study Date: 09/04/2024 11:59:00 PM Ht(Inch): Wt(Lb): BSA: Tech: Location: [address] Order Provider: GURDEEP HERRERA BMI: Ref Provider: GURDEEP HERRERA PROCEDURES: Cardiac Event Monitor: Cardiac Event Monitor. INDICATIONS: G45.9 Transient cerebral ischemic attack, unspecified. MEASUREMENTS: Holter Data Value Min Rate: 53 BPM Min Rate Timestamp: 12:35:00 Max Rate: 129 BPM Max Rate Timestamp: 09:48:00 Mean Rate: 74 BPM Singlets (PACs): 0 events Couplets (PACs): 0 events Runs (SVT): 0 events Singlets (PVCs): 0 events Couplets (PVCs): 0 events Runs (VT): 0 events Holter Data Value FINDINGS: Protocol: Total QRS: 0 Date Recorded: 2024-09-04 23:59:00 Date Processed: 2024-09-04 23:59:00 CONCLUSIONS: 1. Predominant rhythm is normal sinus rhythm. 2. Heart rate and rate variability is appropriate. 3. No prolonged pauses. 4. There are no supraventricular tachycardia events noted. 5. There are no ventricular tachycardia events noted. 6. The patient recorded no symptoms during the study. SUMMARY: Unremarkable cardiac event monitor study. No symptomatic episodes. Electronically Signed By: Reed angel 09/07/2024 12:29:14 PM CDT Gurdeep Herrera NP CV CARDIAC SERVICES PROCEDURES Final Result * POCT glucose (08/06/2024 11:40 AM CDT) [facility] Signature Glucose, POC 150 70 - 199 mg/dL Comment: For Glucose values <35 mg/dl when Hematocrit is >60 mg/dl,the test may not accurately detect significant hypoglycemia,and testing in the Laboratory should be considered if clinically indicated. POC Performer [id number] [facility] Blood 08/06/2024 11:4 0 AM CDT 08/06/2024 11:40 AM CDT Marques Hull MD LAB POCT ORDERABLES - DEVICE Fin al Result [facility] [address] Department [place] [address] * POCT glucose (08/06/2024 7:50 AM CDT) [facility] Glucose, POC 161 70 - 199 mg/dL Comment: For Glucose values <35 mg/dl when Hematocrit is >60 mg/dl,the test may not accurately detect significant hypoglycemia,and testing in the Laboratory should be considered if clinically indicated. POC Performer [id number] [facility] Blood 08/06/2024 7:50 AM CDT 08/06/2024 7:50 AM CDT us Marques Hull MD LAB POCT ORDERABLES - DEVICE Fin al Result Performing Organization Address [facility] Co de Phone Number [facility] [address] Department [place] [address] * (ABNORMAL) Differential, auto (08/06/2024 7:33 AM CDT) [facility] Neutrophil abs 2.6 1.5 - 6.5 K/cumm Imm gran abs 0.0 0.0 - 0.1 K/cumm [facility] Lymphocyte abs 1.2 0.8 - 3.3 K/cumm [facility] Monocyte abs 0.6 0.2 - 0.8 K/cumm [facility] Eosinophil abs 0.7(H) 0.0 - 0.5 K/cumm [facility] Basophil abs 0.1 0.0 - 0.1 K/cumm [facility] Neutrophil pct 50.7 % [facility] Comment: Interpretive Data Percent cell count reference ranges are not reported, since discordance with absolute values may lead to misinterpretation of CBC data. Current Interpretive Data was last revised on 2017. Imm gran pct 0.4 % [facility] Comment: Interpretive Data Percent cell count reference ranges are not reported, since discordance with absolute values may lead to misinterpretation of CBC data. Current Interpretive Data was last revised on 2017. Lymphocyte pct 23.3 % [facility] Comment: Interpretive Data Percent cell count reference ranges are not reported, since discordance with absolute values may lead to misinterpretation of CBC data. Current Interpretive Data was last revised on 2017. Monocyte pct 11.2 % [facility] Comment: Interpretive Data Percent cell count reference ranges are not reported, since discordance with absolute values may lead to misinterpretation of CBC data. Current Interpretive Data was last revised on 2017. Eosinophil pct 13.2 % [facility] Comment: Interpretive Data Percent cell count reference ranges are not reported, since discordance with absolute values may lead to misinterpretation of CBC data. Current Interpretive Data was last revised on 2017. Basophil pct 1.2 % [facility] Comment: Interpretive Data Percent cell count reference ranges are not reported, since discordance with absolute values may lead to misinterpretation of CBC data. Current Interpretive Data was last revised on 2017. Blood 08/06/2024 7:33 AM CDT 08/06/2024 8:04 AM CDT us Gurdeep Herrera NP LAB BLOOD ORDERABLES Final Resu lt [facility] [address] Department [place] [address] * (ABNORMAL) CBC with auto differential (08/06/2024 7:33 AM CDT) WBC 5.2 3.8 - 9.9 K/cumm Hgb 15.2 13.0 - 17.5 g/dL [facility] Hct 47.4 38.9 - 50.3 % [facility] Plt 256 150 - 400 K/cumm [facility] MPV 11.3 9.1 - 12.3 fL [facility] RBC 4.78 4.30 - 5.80 M/cumm [facility] MCV 99.2(H) 81.3 - 96.4 fL [facility] MCH 31.8 27.1 - 33.3 pg [facility] MCHC 32.1(L) 32.3 - 35.7 g/dL [facility] RDW CV 13.2 11.1 - 14.9 % [facility] RDW SD 48.2(H) 35.7 - 48.1 fL [facility] NRBC abs 0.00 0.00 - 0.01 K/cumm [facility] Blood 08/06/2024 7:33 AM CDT 08/06/2024 8:04 AM CDT us Gurdeep Herrera [employer] LAB BLOOD ORDERABLES Final Resu lt Performing Organization Address [facility] Co de Phone Number [facility] [address] Department [place] [address] * POCT glucose (08/05/2024 8:01 PM CDT) Glucose, POC 176 70 - 199 mg/dL Comment: For Glucose values <35 mg/dl when Hematocrit is >60 mg/dl,the test may not accurately detect significant hypoglycemia,and testing in the Laboratory should be considered if clinically indicated. POC Performer [id number] [facility] Blood 08/05/2024 8:01 PM CDT 08/05/2024 8:01 PM CDT Marques Hull MD LAB POCT ORDERABLES - DEVICE Fin al Result Performing Organization Address [facility] de Phone Number [facility] [address] Department [place] [address] * POCT glucose (08/05/2024 4:44 PM CDT) Glucose, POC 147 70 - 199 mg/dL Comment: For Glucose values <35 mg/dl when Hematocrit is >60 mg/dl,the test may not accurately detect significant hypoglycemia,and testing in the Laboratory should be considered if clinically indicated. POC Performer [id number] [facility] Blood 08/05/2024 4:44 PM CDT 08/05/2024 4:44 PM CDT Marques Hull MD LAB POCT ORDERABLES - DEVICE Fin al Result ROS [facility] [address] Department [place] [address] * TRANSTHORACIC ECHO (TTE) COMPLETE W DOPPLER/CF W CONTRAST (08/05/2024 2:48 PM CDT) LV EF 55-60 % CONS SCIMAGE Anatomical Region Laterality Modality Ultrasound 08/05/2024 9:44 AM CDT Narrative 08/05/2024 9:43 PM CDT [facility] [address] [address] ECHOCARDIOGRAM Patient Name: ROSCOE SUTHERLAND J : 1950 (74y 4m) Gender: M Study Date: 08/05/2024 09:44:41 AM Ht(Inch): 73 Wt(Lb): 207.01 BSA: 2.2 Twine Winder: Location: [id number] Order Provider: DONNIE BONILLA BMI: 27.31 BP: 141/73 Ref Provider: DONNIE BONILLA - PROCEDURES: Echocardiographic Report: Transthoracic Echocardiogram with complete 2D, M-Mode, Spectral and Color Flow Doppler examination, Saline Contrast and administration of intravenous contrast. INDICATIONS: Transient ischemic attack. MEASUREMENTS: 2D/MM Value Range Doppler Value Range IVSd 2D 1.10 cm [ 0.60 - 1.00 ] AV Peak Vidal 1.41 m/s [ 1.00 - 1.70 ] LVIDd 2D 4.62 cm [ 4.20 - 5.80 ] AV Peak PG 8.0 mmHg LVIDs 2D 3.14 cm [ 2.50 - 4.00 ] AV Mean PG 3.7 mmHg LVPWd 2D 1.12 cm [ 0.60 - 1.00 ] AV VTI 29.8 cm Estimated EF 55-60 % KRISTI V max 1.6 cm2 LA Dimension 2D 4.12 cm [ 3.00 - 4.00 ] KRISTI VTI 1.8 cm2 AoR Diam 2D 3.36 cm [ 3.10 - 3.70 ] LVOT Peak Vidal 0.72 m/s [ 0.70 - 1.10 ] AoR Diam 2D Index 1.53 LVOT Diam 2.0 cm RA Volume 59.00 ml LVOT Peak PG 2.0 mmHg TAPSE 2.52 cm [ 1.71 - 5.00 ] LVOT VTI 17.1 cm MV Peak PG 3.7 mmHg MV Mean PG 1.3 mmHg MV E Peak Vidal 0.6 m/s [ 0.6 - 1.3 ] MV A Peak Vidal 1.0 m/s [ 1.0 - 1.2 ] MV PHT 359.9 ms [ 20.0 - 100.0 ] MV Decel Time 356.4 ms [ 104.0 - 258.0 ] MVA PHT 0.6 ms MV E/A Ratio 0.6 PV Peak Vidal 0.9 m/s [ 0.4 - 0.8 ] PV Peak PG 3.0 mmHg Lat E` Vidal 0.05 m/s [ 0.10 - 0.15 ] Sept E' Vidal 0.05 m/s [ 0.08 - 0.15 ] E/E` 12.00 RV S' 0.13 m/s 2D/MM Value Range Doppler Value Range - FINDINGS: BP: Blood pressure: 141/73 mmHg. Left Ventricle: Normal global and regional left ventricular systolic function. Ejection Fraction is estimated at 55-60 %. Normal left ventricular cavity size. Mild concentric left ventricular hypertrophy. Right Ventricle: Normal right ventricular systolic function. Normal right ventricular size. Left Atrium: There is mild enlargement of the left atrium. Right Atrium: The right atrium is normal in size. Atrial Septum: Normal appearing atrial septum. Saline contrast study negative for R to L shunt. Mitral Valve: Mild systolic mitral valve prolapse of anterior leaflet, which has mild thickening. There is no significant mitral regurgitation. Mild mitral annular calcification. Aortic Valve: Aortic valve appears tricuspid in configuration. There is no aortic stenosis. There is no aortic regurgitation. Tricuspid Valve: Normal appearance of the tricuspid leaflets. Trace tricuspid regurgitation. TR envelope inadequate to estimate RVSP. Pulmonic Valve: Normal appearance and function of the pulmonic valve. Pericardium: No significant pericardial effusion. Aortic Root and Aorta: Normal caliber aortic root. Normal sized ascending aorta. Aortic Arch: Grossly normal aortic arch. IVC: The IVC is not well visualized. CONCLUSIONS: 1. Normal global and regional left ventricular systolic function. Ejection Fraction is estimated at 55-60 %. Normal left ventricular cavity size. Mild concentric left ventricular hypertrophy. 2. Normal right ventricular systolic function. Normal right ventricular size. 3. Normal appearing atrial septum. Saline contrast study negative for R to L shunt. Electronically Signed By: Kevin Winter [facility] Card 08/05/2024 9:43:08 PM CDT Procedure Note Kevin Winter MD - 08/05/[address] [address] ECHOCARDIOGRAM Patient Name: ROSCOE SUTHERLAND J : 1950 (74y 4m) Gender: M Study Date: 08/05/2024 09:44:41 AM Ht(Inch): 73 Wt(Lb): 207.01 BSA: 2.2 Twine Winder: NEEL Location: [address] Order Provider: DONNIE BONILLA BMI: 27.31 BP: 141/73 Ref Provider: DONNIE BONILLA - PROCEDURES: Echocardiographic Report: Transthoracic Echocardiogram with complete 2D,M-Mode, Spectral and Color Flow Doppler examination, Saline Contrast and administration ofintravenous contrast. INDICATIONS: Transient ischemic attack. MEASUREMENTS: 2D/MM Value Range Doppler ValueRange IVSd 2D 1.10 cm [ 0.60 - 1.00 ] AV Peak Vidal 1.41m/s [ 1.00 - 1.70 ] LVIDd 2D 4.62 cm [ 4.20 - 5.80 ] AV Peak PG 8.0mmHg LVIDs 2D 3.14 cm [ 2.50 - 4.00 ] AV Mean PG 3.7mmHg LVPWd 2D 1.12 cm [ 0.60 - 1.00 ] AV VTI 29.8cm Estimated EF 55-60 % KRISTI V max 1.6cm2 LA Dimension 2D 4.12 cm [ 3.00 - 4.00 ] KRISTI VTI 1.8cm2 AoR Diam 2D 3.36 cm [ 3.10 - 3.70 ] LVOT Peak Vidal 0.72m/s [ 0.70 - 1.10 ] AoR Diam 2D Index 1.53 LVOT Diam 2.0cm RA Volume 59.00 ml LVOT Peak PG 2.0mmHg TAPSE 2.52 cm [ 1.71 - 5.00 ] LVOT VTI 17.1cm MV Peak PG 3.7 mmHg MV Mean PG 1.3 mmHg MV E Peak Vidal 0.6 m/s [ 0.6 - 1.3 ] MV A Peak Vidal 1.0 m/s [ 1.0 - 1.2 ] MV PHT 359.9 ms [ 20.0 - 100.0 ] MV Decel Time 356.4 ms [ 104.0 - 258.0 ] MVA PHT 0.6 ms MV E/A Ratio 0.6 PV Peak Vidal 0.9 m/s [ 0.4 - 0.8 ] PV Peak PG 3.0 mmHg Lat E` Vidal 0.05 m/s [ 0.10 - 0.15 ] Sept E' Vidal 0.05 m/s [ 0.08 - 0.15 ] E/E` 12.00 RV S' 0.13 m/s 2D/MM Value Range Doppler ValueRange - FINDINGS: BP: Blood pressure: 141/73 mmHg. Left Ventricle: Normal global and regional left ventricular systolicfunction. Ejection Fraction is estimated at 55-60 %. Normal left ventricular cavity size.Mild concentric left ventricular hypertrophy. Right Ventricle: Normal right ventricular systolic function. Normal rightventricular size. Left Atrium: There is mild enlargement of the left atrium. Right Atrium: The right atrium is normal in size. Atrial Septum: Normal appearing atrial septum. Saline contrast studynegative for R to L shunt. Mitral Valve: Mild systolic mitral valve prolapse of anterior leaflet,which has mild thickening. There is no significant mitral regurgitation. Mild mitralannular calcification. Aortic Valve: Aortic valve appears tricuspid in configuration. There is noaortic stenosis. There is no aortic regurgitation. Tricuspid Valve: Normal appearance of the tricuspid leaflets. Tracetricuspid regurgitation. TR envelope inadequate to estimate RVSP. Pulmonic Valve: Normal appearance and function of the pulmonic valve. Pericardium: No significant pericardial effusion. Aortic Root and Aorta: Normal caliber aortic root. Normal sized ascendingaorta. Aortic Arch: Grossly normal aortic arch. IVC: The IVC is not well visualized. CONCLUSIONS: 1. Normal global and regional left ventricular systolic function. EjectionFraction is estimated at 55-60 %. Normal left ventricular cavity size. Mild concentricleft ventricular hypertrophy. 2. Normal right ventricular systolic function. Normal right ventricularsize. 3. Normal appearing atrial septum. Saline contrast study negative for R Spencer shunt. Electronically Signed By: Kevin Winter [facility] Card 08/05/2024 9:43:08 PM CDT Donnie Bonilla DO CV ECHO PROCEDURES Fin al Result * POCT glucose (08/05/2024 11:38 AM CDT) Glucose, POC 187 70 - 199 mg/dL Comment: For Glucose values <35 mg/dl when Hematocrit is >60 mg/dl,the test may not accurately detect significant hypoglycemia,and testing in the Laboratory should be considered if clinically indicated. POC Performer [phone] ROS [facility] Blood 08/05/2024 11:3 8 AM CDT 08/05/2024 11:38 AM CDT Marques Hull MD LAB POCT ORDERABLES - DEVICE Fin al Result [facility] [address] Department [place] [address] * (ABNORMAL) Urinalysis reflex to microscopic and culture Urine (08/05/2024 10:12 AM CDT) Color, ur Yaz Yellow Clarity, ur Turbid(A) Clear [facility] Specific gravity, ur 1.021 1.003 - 1.030 [facility] pH, urine 6.5 [facility] Comment: Interpretive Data U rine pH is affected by diet, medications, systemic acid-base disturbances, and renal tubular function. pH may affect urinary stone formation. For example, urine pH below 6.0 may help reduce the tendency for calcium phosphate stones and pH greater than 6.0 may reduce the tendency for uric acid stone formation. Source: [facility] Current Interpretive Data was last revised on 2017 Protein, ur ql 1+(A) Negative [facility] Glucose, ur ql 3+(A) Negative [facility] Ketones, ur Negative Negative [facility] Bilirubin, ur Negative Negative [facility] Blood, ur 3+(A) Negative [facility] Urobilinogen, ur <2.0 <2.0 mg/dL [facility] Nitrite, ur Negative Negative [facility] Leukocyte esterase, ur 2+(A) Negative [facility] UA reflex comment Reflex to microscopic UA will be performed. [facility] Urine 08/05/2024 10:1 2 AM CDT 08/05/2024 10:19 AM CDT Donnie Bonilla DO LAB MICROBIOLOGY - GEN ERAL ORDERABLES Final Result [facility] [address] [place] [address] * (ABNORMAL) Urinalysis, microscopic only (08/05/2024 10:12 AM CDT) WBC, ur >50(A) 0 - 5 /HPF RBC, ur >50(A) 0 - 2 /HPF [facility] Epithelial cells, squamous, ur 1-5 0 - 5 /HPF [facility] Culture Reflex Comment Reflex to urine culture will be performed. [facility] Urine 08/05/2024 10:1 2 AM CDT 08/05/2024 12:05 PM CDT Donnie Bonilla DO LAB URINE ORDERABLES F inal Result Performing Organization Address [facility] Co de Phone Number [facility] [address] [place] [address] * Urine culture Urine (08/05/2024 10:12 AM CDT) Report Final Report: No growth Urine 08/05/2024 10:1 2 AM CDT 08/05/2024 12:06 PM CDT Narrative [facility] - 08/07/2024 9:28 AM CDT Urine culture reflexed based upon urinalysis results. Donnie Bonilla DO LAB MICROBIOLOGY - GEN ERAL ORDERABLES Final Result Performing Organization Address [facility] de Phone Number [facility] [address] [facility] [place] [address] * POCT glucose (08/05/2024 7:53 AM CDT) Glucose, POC 149 70 - 199 mg/dL Comment: For Glucose values <35 mg/dl when Hematocrit is >60 mg/dl,the test may not accurately detect significant hypoglycemia,and testing in the Laboratory should be considered if clinically indicated. POC Performer [phone] [facility] Glucose comment 1 RN/MD Notified [facility] Blood 08/05/2024 7:53 AM CDT 08/05/2024 7:53 AM CDT us Marques Hull MD LAB POCT ORDERABLES - DEVICE Fin al Result Performing Organization Address [facility] Co de Phone Number [facility] [address] [place] [address] * eGFR (08/05/2024 6:10 AM CDT) eGFR 85 >=60 mL/min/1. 73 m2 Comment: Interpretive Data Reference Interval Normal >/= 90 mL/min/1.73m2 Mildly decreased* 60 - 89 mL/min/1.73m2 Mildly to moderately decreased 45 - 59 mL/min/1.73m2 Moderately to severely decreased 30 - 44 mL/min/1.73m2 Severely decreased 15 - 29 mL/min/1.73m2 Kidney Failure < 15 mL/min/1.73m2 *Relative to young adult level Estimated glomerular filtration rate is determined by the 2020 CKD-EPI equation recommended by the National Kidney Foundation (A Unifying Approach to GFR Estimation: Recommendations of the NKF-ASK Task Force on Reassessing the Inclusion of Race in Diagnosing Kidney Disease, JASN 2020). The CKD-EPI equation should not be used for patients with unstable renal function and has not been validated in children and those over 70. Current interpretive data was last reviewed 2021. Blood 08/05/2024 6:10 AM CDT 08/05/2024 6:45 AM CDT Shellie Roldan MD LAB BLOOD ORDERABLES Final Resul t Performing Organization Address City/[facility]/ZIP Co de Phone Number [facility] [address] [facility] [place] [address] * (ABNORMAL) Thyroid Function [place] (08/05/2024 6:10 AM CDT) TSH 4.44(H) 0.30 - 4.20 mcIUnit/mL Blood 08/05/2024 6:10 AM CDT 08/05/2024 6:45 AM CDT Shellie Roldan MD LAB BLOOD ORDERABLES Final Resul t [facility] [address] [facility] [place] [address] * (ABNORMAL) CBC without differential (08/05/2024 6:10 AM CDT) [facility] WBC 4.9 3.8 - 9.9 K/cumm Hgb 14.6 13.0 - 17.5 g/dL [facility] Hct 44.6 38.9 - 50.3 % [facility] Plt 227 150 - 400 K/cumm [facility] MPV 11.3 9.1 - 12.3 fL [facility] RBC 4.58 4.30 - 5.80 M/cumm [facility] MCV 97.4(H) 81.3 - 96.4 fL [facility] MCH 31.9 27.1 - 33.3 pg [facility] MCHC 32.7 32.3 - 35.7 g/dL [facility] RDW CV 13.4 11.1 - 14.9 % [facility] RDW SD 48.0 35.7 - 48.1 fL [facility] NRBC abs 0.00 0.00 - 0.01 K/cumm [facility] Blood 08/05/2024 6:10 AM CDT 08/05/2024 6:45 AM CDT us Shellie Roldan MD LAB BLOOD ORDERABLES Final Resul t Performing Organization Address City/[facility]/ZIP Co de Phone Number [facility] [address] Department [place] [address] * T4, free (08/05/2024 6:10 AM CDT) Pathologist [facility] Free T4 1.33 0.90 - 1.70 ng/dL Blood 08/05/2024 6:10 AM CDT 08/05/2024 6:45 AM CDT Narrative [facility] - 08/05/2024 7:40 AM CDT This test was reflexed from a TSH result. us Shellie Roldan MD LAB BLOOD ORDERABLES Final Resul t [facility] [address] [facility] [place] [address] * Phosphorus (08/05/2024 6:10 AM CDT) Phosphorus, pl 2.6 2.3 - 4.5 mg/dL Blood 08/05/2024 6:10 AM CDT 08/05/2024 6:45 AM CDT Shellie Roldan MD LAB BLOOD ORDERABLES Final Resul t Performing Organization Address City/[facility] Co de Phone Number [facility] [address] [facility] [place] [address] * Magnesium (08/05/2024 6:10 AM CDT) Pathologist [facility] Magnesium 1.9 1.4 - 2.5 mg/dL Blood 08/05/2024 6:10 AM CDT 08/05/2024 6:45 AM CDT Shellie Roldan MD LAB BLOOD ORDERABLES Final Resul t Performing Organization Address City/[facility] Co de Phone Number [facility] [address] [facility] [place] [address] * (ABNORMAL) Hemoglobin A1c (08/05/2024 6:10 AM CDT) [facility] Hgb A1C 7.1(H) 4.0 - 5.6 % Estimated Average Glucose 157 mg/dL [facility] Comment: The ADA recommends reporting an estimated Average Glucose (eAG) with all Hemoglobin A1c results using the equation derived from a study of 507 normal and diabetic adults. Minority populations were underrepresented and children were not included. (Diabetes Care 31:2651-0872, 2008). The eAG is not equivalent to a fasting glucose. Blood 08/05/2024 6:10 AM CDT 08/05/2024 6:45 AM CDT us Shellie Roldan MD LAB BLOOD ORDERABLES Final Resul t [facility] [address] Department [place] [address] * Lipid panel (08/05/2024 6:10 AM CDT) Cholesterol 112 30 - 199 mg/dL Comment: Interpretive Data Ages < or = 19 years Acceptable: <170 mg/dL Borderline high: 170-199 mg/dL High: >or= 200 mg/dL Ages > or = 20 years Desirable: <200 mg/dL Borderline high: 200-239 mg/dL High: >or= 240 mg/dL Literature References: 1. Expert Panel on Integrated Guidelines for Cardiovascular Health and Risk Reduction in Children and Adolescents. Pediatrics 2011;128:S213 2. NCEP Expert Panel. Circulation 2004;110:227 Current Interpretive Data was last revised on 2018. Triglycerides 65 <=149 mg/dL [facility] Comment: Interpretive Data Ages < or = 9 years Acceptable: <75 mg/dL Borderline high: 75-99 mg/dL High: >or= 100 mg/dL Ages 10 to 20 years Acceptable: <90 mg/dL Borderline high: 90-129 mg/dL High: >or= 130 mg/dL Ages > or = 20 years Desirable: <150 mg/dL Borderline high: 150-199 mg/dL High: 200-499 mg/dL Very high: >or= 499 mg/dL Literature References: 1. Expert Panel on Integrated Guidelines for Cardiovascular Health and Risk Reduction in Children and Adolescents. Pediatrics 2011;128:S213 2. NCEP Expert Panel. Circulation 2004;110:227 Current Interpretive Data was last revised on 2018. HDL 42 >=40 mg/dL [facility] Comment: Interpretive Data Ages < or = 19 years Acceptable: >45 mg/dL Borderline low: 40-45 mg/dL Low: <40 mg/dL Ages > or = 20 years Desirable: >or= 60 mg/dL Low: <40 mg/dL Literature References: 1. Expert Panel on Integrated Guidelines for Cardiovascular Health and Risk Reduction in Children and Adolescents. Pediatrics 2011;128:S213 2. NCEP Expert Panel. Circulation 2004;110:227 Current Interpretive Data was last revised on 2018. LDL, calculated 56 <=129 mg/dL [facility] Comment: Interpretive Data Ages < or = 19 years Acceptable: <110 mg/dL Borderline high: 110-129 mg/dL High: >or= 130 mg/dL Ages > or = 20 years Optimal: <100 mg/dL Near optimal: 100-129 mg/dL Borderline high: 130-159 mg/dL High: >160 mg/dL Calculated using the Lowell LDL-C estimating equation. This equation was implemented on 2024. Prior to this date LDL-C was estimated using the Friedewald equation. Literature References: 1. Expert Panel on Integrated Guidelines for Cardiovascular Health and Risk Reduction in Children and Adolescents. Pediatrics 2011;128:S213 2. NCEP Expert Panel. Circulation 2004;110:227 3. Lowell Vieira et al. JONATHAN Cardiol. 2019September 14;5(5):540-548. doi: 10.1001/[email or web address] Current Interpretive Data was last revised on 2024. Non-HDL Cholesterol 70 mg/dL [facility] Comment: Interpretive Data Ages < or = 19 years Acceptable: <120 mg/dL Borderline high: 120-144 mg/dL High: >145 mg/dL Ages > or = 20 years When triglycerides are >200 mg/dL, Non-HDL cholesterol is a secondary target of therapy with treatment goals that are 30 mg/dL greater than the LDL cholesterol target. Literature References: 1. Expert Panel on Integrated Guidelines for Cardiovascular Health and Risk Reduction in Children and Adolescents. Pediatrics 2011;128:S213 2. NCEP Expert Panel. Circulation 2004;110:227 Current Interpretive Data was last revised on 2018. Chol/HDL ratio 3 [facility] Blood 08/05/2024 6:10 AM CDT 08/05/2024 6:45 AM CDT us Shellie Roldan MD LAB BLOOD ORDERABLES Final Resul t [facility] [address] Department [place] [address] * Basic metabolic panel (08/05/2024 6:10 AM CDT) Sodium 135 135 - 145 mmol/L Potassium, pl 3.8 3.3 - 4.9 mmol/L [facility] Chloride 102 97 - 110 mmol/L [facility] CO2 23 22 - 32 mmol/L [facility] Anion gap 10 2 - 15 mmol/L [facility] BUN 16 6 - 25 mg/dL [facility] Creatinine 0.94 0.80 - 1.30 mg/dL [facility] Glucose 168 70 - 199 mg/dL [facility] Comment: Interpretive Data Fasting glucose >/= 126 mg/dl is diagnostic for diabetes. Fasting is defined as no caloric intake for at least 8 hours. Fasting glucose between 100 mg/dl to 125 mg/dl is diagnostic of prediabetes. In a patient with classic symptoms of hyperglycemia or hyperglycemic crisis, a random glucose >/= 200 mg/dl is diagnostic for diabetes. In the absence of unequivocal hyperglycemia, results should be confirmed by repeat testing. The classification and Diagnosis of Diabetes Diabetes Care 2021; 46: S19-S40. Current interpretive data was last revised 2022. Calcium 9.6 8.5 - 10.3 mg/dL [facility] Blood 08/05/2024 6:10 AM CDT 08/05/2024 6:45 AM CDT us Shellie Roldan MD LAB BLOOD ORDERABLES Final Resul t [facility] [address] Department [place] [address] * POCT glucose (08/05/2024 5:47 AM CDT) Glucose, POC 145 70 - 199 mg/dL Comment: For Glucose values <35 mg/dl when Hematocrit is >60 mg/dl,the test may not accurately detect significant hypoglycemia,and testing in the Laboratory should be considered if clinically indicated. POC Performer [phone] [facility] Blood 08/05/2024 5:47 AM CDT 08/05/2024 5:47 AM CDT Donnie Bonilla DO LAB POCT ORDERABLES - DEVICE Final Result Performing Organization Address [facility] Co de Phone Number [facility] [address] [facility] [place] [address] * POCT glucose (08/05/2024 1:20 AM CDT) [facility] Signature Glucose, POC 125 70 - 199 mg/dL Comment: For Glucose values <35 mg/dl when Hematocrit is >60 mg/dl,the test may not accurately detect significant hypoglycemia,and testing in the Laboratory should be considered if clinically indicated. POC Performer [id number] [facility] Blood 08/05/2024 1:20 AM CDT 08/05/2024 1:20 AM CDT Shellie Roldan MD LAB POCT ORDERABLES - DEVICE Fin al Result Performing Organization Address [facility] Co de Phone Number [facility] [address] [place] [address] * MRI Brain WO Contrast (08/05/2024 12:30 AM CDT) Anatomical Region Laterality Modality Head and Neck N/A Magnetic Resonan ce 08/04/2024 11:5 4 PM CDT Impressions 08/05/2024 1:49 PM CDT No acute intracranial abnormality. 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 Electronically signed by: Teto Briscoe MD Narrative 08/05/2024 1:49 PM CDT EXAMINATION: Magnetic resonance imaging (MRI) of the brain and brainstem without contrast HISTORY: Neuro deficit, acute, stroke suspected. TECHNIQUE: Multiplanar multi-weighted MRI of the brain and brainstem was performed without intravenous contrast using the general brain protocol. COMPARISON: 08/04/2024 FINDINGS: No acute intracranial infarction or hemorrhage. Cerebral volume loss without hydrocephalus. Periventricular, deep and pontine white matter T2 FLAIR hyperintense signal likely reflects underlying chronic small vessel ischemic changes. Prominent perivascular spaces in the bilateral basal ganglia. The scalp and calvarium are normal. The superior sagittal sinus demonstrates normal venous flow. The corpus callosum is normal in shape and signal intensity. The posterior fossa is unremarkable. The pituitary and sella are normal. The brainstem and craniocervical junction are unremarkable. The visualized portions of the orbits are normal. The visualized portions of the mastoids are normal. The visualized portions of the paranasal sinuses are normal. Absent left internal carotid artery flow-void is noted compatible with known occlusion of the left ICA. Procedure Note Teto Briscoe MD - 08/05/2024 EXAMINATION: Magnetic resonance imaging (MRI) of the brain and brainstem without contrast HISTORY: Neuro deficit, acute, stroke suspected. TECHNIQUE: Multiplanar multi-weighted MRI of the brain and brainstem was performed without intravenous contrast using the general brain protocol. COMPARISON: 08/04/2024 FINDINGS: No acute intracranial infarction or hemorrhage. Cerebral volume loss without hydrocephalus. Periventricular, deep and pontine white matter T2 FLAIR hyperintense signal likely reflects underlying chronic small vessel ischemic changes. Prominent perivascular spaces in the bilateral basal ganglia. The scalp and calvarium are normal. The superior sagittal sinus demonstrates normal venous flow. The corpus callosum is normal in shape and signal intensity. The posterior fossa is unremarkable. The pituitary and sella are normal. The brainstem and craniocervical junction are unremarkable. The visualized portions of the orbits are normal. The visualized portions of the mastoids are normal. The visualized portions of the paranasal sinuses are normal. Absent left internal carotid artery flow-void is noted compatible with known occlusion of the left ICA. IMPRESSION: No acute intracranial abnormality. 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 Electronically signed by: Teto Briscoe MD Shellie Roldan MD [facility] MRI PROCEDURES Final Result * POCT glucose (08/04/2024 10:44 PM CDT) Glucose, POC 165 70 - 199 mg/dL Comment: For Glucose values <35 mg/dl when Hematocrit is >60 mg/dl,the test may not accurately detect significant hypoglycemia,and testing in the Laboratory should be considered if clinically indicated. POC Performer [phone] [facility] Blood 08/04/2024 10:4 4 PM CDT 08/04/2024 10:44 PM CDT us Almita Hickey MD LAB POCT ORDERABLES - DEV ICE Final Result ROS [facility] [address] Department [place] [address] * CTA Stroke Head Neck W WO Contrast (08/04/2024 10:31 PM CDT) Anatomical Region Laterality Modality Head and Neck N/A Computed Tomogra phy 08/04/2024 10:1 9 PM CDT Impressions 08/05/2024 2:[address] evidence of stroke. No acute intracranial abnormality. 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 For the purposes of data quality consultant, this study was initially interpreted by teleradiology. There is no significant discrepancy. Electronically signed by: Teto Briscoe MD Narrative 08/05/2024 2:58 PM CDT EXAMINATION: Computed tomography angiography (CTA) of the head without and with contrast; Computed tomography angiography (CTA) of the neck with contrast. HISTORY: Code stroke. TECHNIQUE: Computed tomography of the head was performed without contrast according to standard protocol. Computed tomographic angiography was obtained from the level of the aortic arch to the vertex following the uneventful administration of intravenous contrast according to hyperacute stroke protocol. 3D images were generated on a dedicated workstation. Contrast information: 70 mL [id number] COMPARISON: 10/08/2011. FINDINGS: HEAD CT FINDINGS: There is no acute intracranial hemorrhage. Trace right basal ganglia calcification. Cerebral volume loss without hydrocephalus. Bilateral basal ganglia chronic lacunar infarcts versus prominent perivascular spaces. No mass effect or midline shift is present. The oliver-white matter differentiation is normal. Periventricular white matter hypoattenuation may reflect underlying chronic small vessel ischemic changes. No acute calvarial fracture seen. Bilateral cataract extractions. The visualized portions of the mastoids are normal. The visualized portions of the paranasal sinuses are normal. ANGIOGRAPHIC FINDINGS: The visualized aortic arch appears normal with normal configuration of the great vessels. The innominate artery and both subclavian arteries are normal in course and caliber. There is no significant stenosis of the origins of the great vessels. There is no geographic area of vascular paucity in the brain. Left anterior circulation: L CCA: no occlusion or significant stenosis L carotid bifurcation: Moderate atherosclerotic calcification without substantial stenosis L ICA proximal: Complete occlusion L ICA distal: Complete occlusion L ICA terminus: Reconstitution secondary to the iroquois of Rea L M1: no occlusion or significant stenosis L M2 branches: no occlusion or significant stenosis L A2: no occlusion or significant stenosis Right anterior circulation: R CCA: no occlusion or significant stenosis R carotid bifurcation: Moderate atherosclerotic calcification without substantial stenosis R ICA proximal: no occlusion or significant stenosis R ICA distal: no occlusion or significant stenosis R ICA terminus: no occlusion or significant stenosis R M1: no occlusion or significant stenosis R M2 branches: no occlusion or significant stenosis R A2: no occlusion or significant stenosis Posterior circulation: L Vertebral Artery: no occlusion or significant stenosis; mild atherosclerosis at the origin R Vertebral Artery: Congenitally diminutive; no occlusion or significant stenosis Basilar Artery: no occlusion or significant stenosis L [employer]OM[employer] SALESPERSON: no occlusion or significant stenosis R AUTOMOBILE [employer]ESS[employer] SALESPERSON: no occlusion or significant stenosis No cerebral aneurysm is seen. There is no evidence for an arteriovenous malformation. There is no suspicious cervical lymphadenopathy. There is no significant cervical spondylosis. Mild multilevel degenerative changes of the lower cervical spine. Limited views of the lung apices are normal. Right internal jugular approach central venous access port is noted with catheter extending into the superior vena cava. Procedure Note Teto Briscoe MD - 08/05/2024 EXAMINATION: Computed tomography angiography (CTA) of the head without and with contrast; Computed tomography angiography (CTA) of the neck with contrast. HISTORY: Code stroke. TECHNIQUE: Computed tomography of the head was performed without contrast according to standard protocol. Computed tomographic angiography was obtained from the level of the aortic arch to the vertex following the uneventful administration of intravenous contrast according to hyperacute stroke protocol. 3D images were generated on a dedicated workstation. Contrast information: 70 mL Optiray-350 COMPARISON: 10/08/2011. FINDINGS: HEAD CT FINDINGS: There is no acute intracranial hemorrhage. Trace right basal ganglia calcification. Cerebral volume loss without hydrocephalus. Bilateral basal ganglia chronic lacunar infarcts versus prominent perivascular spaces. No mass effect or midline shift is present. The oliver-white matter differentiation is normal. Periventricular white matter hypoattenuation may reflect underlying chronic small vessel ischemic changes. No acute calvarial fracture seen. Bilateral cataract extractions. The visualized portions of the mastoids are normal. The visualized portions of the paranasal sinuses are normal. ANGIOGRAPHIC FINDINGS: The visualized aortic arch appears normal with normal configuration of the great vessels. The innominate artery and both subclavian arteries are normal in course and caliber. There is no significant stenosis of the origins of the great vessels. There is no geographic area of vascular paucity in the brain. Left anterior circulation: L CCA: no occlusion or significant stenosis L carotid bifurcation: Moderate atherosclerotic calcification without substantial stenosis L ICA proximal: Complete occlusion L ICA distal: Complete occlusion L ICA terminus: Reconstitution secondary to the iroquois of Rea L M1: no occlusion or significant stenosis L M2 branches: no occlusion or significant stenosis L A2: no occlusion or significant stenosis Right anterior circulation: R CCA: no occlusion or significant stenosis R carotid bifurcation: Moderate atherosclerotic calcification without substantial stenosis R ICA proximal: no occlusion or significant stenosis R ICA distal: no occlusion or significant stenosis R ICA terminus: no occlusion or significant stenosis R M1: no occlusion or significant stenosis R M2 branches: no occlusion or significant stenosis R A2: no occlusion or significant stenosis Posterior circulation: L Vertebral Artery: no occlusion or significant stenosis; mild atherosclerosis at the origin R Vertebral Artery: Congenitally diminutive; no occlusion or significant stenosis Basilar Artery: no occlusion or significant stenosis L [employer] SALESPERSON: no occlusion or significant stenosis R AUTOMOBILE [employer]ESS[employer] SALESPERSON: no occlusion or significant stenosis No cerebral aneurysm is seen. There is no evidence for an arteriovenous malformation. There is no suspicious cervical lymphadenopathy. There is no significant cervical spondylosis. Mild multilevel degenerative changes of the lower cervical spine. Limited views of the lung apices are normal. Right internal jugular approach central venous access port is noted with catheter extending into the superior vena cava. IMPRESSION: No CT evidence of stroke. No acute intracranial abnormality. 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 For the purposes of data quality consultant, this study was initially interpreted by teleradiology. There is no significant discrepancy. Electronically signed by: Teto Briscoe MD us Almita Hickey MD IMG CT PROCEDURES Final R esult * eGFR (08/04/2024 6:50 PM CDT) eGFR 68 >=60 mL/min/1. 73 m2 Comment: Interpretive Data Reference Interval Normal >/= 90 mL/min/1.73m2 Mildly decreased* 60 - 89 mL/min/1.73m2 Mildly to moderately decreased 45 - 59 mL/min/1.73m2 Moderately to severely decreased 30 - 44 mL/min/1.73m2 Severely decreased 15 - 29 mL/min/1.73m2 Kidney Failure < 15 mL/min/1.73m2 *Relative to young adult level Estimated glomerular filtration rate is determined by the 2020 CKD-EPI equation recommended by the National Kidney [employer] (A Unifying Approach to GFR Estimation: Recommendations of the NKF-ASK Task Force on Reassessing the Inclusion of Race in Diagnosing Kidney Disease, JASN 2020). The CKD-EPI equation should not be used for patients with unstable renal function and has not been validated in children and those over 70. Current interpretive data was last reviewed 2021. Blood 08/04/2024 6:50 PM CDT 08/04/2024 7:05 PM CDT us Almita Hickey MD LAB BLOOD ORDERABLES Vee rosario Result [facility] [address] Department [place] [address] * (ABNORMAL) Differential, auto (08/04/2024 6:50 PM CDT) Neutrophil abs 2.6 1.5 - 6.5 K/cumm Imm gran abs 0.0 0.0 - 0.1 K/cumm [facility] Lymphocyte abs 1.8 0.8 - 3.3 K/cumm [facility] Monocyte abs 0.7 0.2 - 0.8 K/cumm [facility] Eosinophil abs 0.7(H) 0.0 - 0.5 K/cumm [facility] Basophil abs 0.1 0.0 - 0.1 K/cumm [facility] Neutrophil pct 44.3 % [facility] Comment: Interpretive Data Percent cell count reference ranges are not reported, since discordance with absolute values may lead to misinterpretation of CBC data. Current Interpretive Data was last revised on 2017. Imm gran pct 0.3 % [facility] Comment: Interpretive Data Percent cell count reference ranges are not reported, since discordance with absolute values may lead to misinterpretation of CBC data. Current Interpretive Data was last revised on 2017. Lymphocyte pct 30.1 % [facility] Comment: Interpretive Data Percent cell count reference ranges are not reported, since discordance with absolute values may lead to misinterpretation of CBC data. Current Interpretive Data was last revised on 2017. Monocyte pct 11.7 % [facility] Comment: Interpretive Data Percent cell count reference ranges are not reported, since discordance with absolute values may lead to misinterpretation of CBC data. Current Interpretive Data was last revised on 2017. Eosinophil pct 12.2 % [facility] Comment: Interpretive Data Percent cell count reference ranges are not reported, since discordance with absolute values may lead to misinterpretation of CBC data. Current Interpretive Data was last revised on 2017. Basophil pct 1.4 % [facility] Comment: Interpretive Data Percent cell count reference ranges are not reported, since discordance with absolute values may lead to misinterpretation of CBC data. Current Interpretive Data was last revised on 2017. Blood 08/04/2024 6:50 PM CDT 08/04/2024 7:04 PM CDT us Almita Hickey MD LAB BLOOD ORDERABLES Vee rosario Result [facility] [address] Department [place] [address] * (ABNORMAL) CBC with auto differential (08/04/2024 6:50 PM CDT) WBC 5.9 3.8 - 9.9 K/cumm Hgb 15.6 13.0 - 17.5 g/dL [facility] Hct 48.5 38.9 - 50.3 % [facility] Plt 273 150 - 400 K/cumm [facility] MPV 11.1 9.1 - 12.3 fL [facility] RBC 4.92 4.30 - 5.80 M/cumm [facility] MCV 98.6(H) 81.3 - 96.4 fL [facility] MCH 31.7 27.1 - 33.3 pg [facility] MCHC 32.2(L) 32.3 - 35.7 g/dL [facility] RDW CV 13.4 11.1 - 14.9 % [facility] RDW SD 48.7(H) 35.7 - 48.1 fL [facility] NRBC abs 0.00 0.00 - 0.01 K/cumm [facility] Blood 08/04/2024 6:50 PM CDT 08/04/2024 7:04 PM CDT us Almita Hickey MD LAB BLOOD ORDERABLES Vee rosario Result [facility] [address] Department [place] [address] * Comprehensive metabolic panel (08/04/2024 6:50 PM CDT) Sodium 141 135 - 145 mmol/L Potassium, pl 4.4 3.3 - 4.9 mmol/L [facility] Chloride 104 97 - 110 mmol/L [facility] CO2 25 22 - 32 mmol/L [facility] Anion gap 12 2 - 15 mmol/L [facility] BUN 20 6 - 25 mg/dL [facility] Creatinine 1.13 0.80 - 1.30 mg/dL [facility] Glucose 147 70 - 199 mg/dL [facility] Comment: Interpretive Data Fasting glucose >/= 126 mg/dl is diagnostic for diabetes. Fasting is defined as no caloric intake for at least 8 hours. Fasting glucose between 100 mg/dl to 125 mg/dl is diagnostic of prediabetes. In a patient with classic symptoms of hyperglycemia or hyperglycemic crisis, a random glucose >/= 200 mg/dl is diagnostic for diabetes. In the absence of unequivocal hyperglycemia, results should be confirmed by repeat testing. The classification and Diagnosis of Diabetes Diabetes Care 2021; 46: S19-S40. Current interpretive data was last revised 2022. Calcium 10.2 8.5 - 10.3 mg/dL [facility] Bilirubin, total 0.5 0.1 - 1.2 mg/dL [facility] Protein, pl 6.8 6.5 - 8.5 g/dL [facility] Albumin 4.1 3.5 - 5.0 g/dL [facility] Alk phos 64 40 - 130 Units/L [facility] ALT 24 7 - 55 Units/L [facility] AST 24 10 - 50 Units/L [facility] Comment:Slightly Hemolyzed S pecimen Blood 08/04/2024 6:50 PM CDT 08/04/2024 7:05 PM CDT Almita Hickey MD LAB BLOOD ORDERABLES Vee l Result Performing Organization Address [facility]/ZIP Co de Phone Number [facility] [address] Department of [employer] [place], [place] [id number] * POCT glucose (08/04/2024 6:48 PM CDT) [facility] Glucose, POC 136 70 - 199 mg/dL Comment: For Glucose values <35 mg/dl when Hematocrit is >60 mg/dl,the test may not accurately detect significant hypoglycemia,and testing in the Laboratory should be considered if clinically indicated. POC Performer [phone] [facility] Blood 08/04/2024 6:48 PM CDT 08/04/2024 6:48 PM CDT Almita Hickey MD LAB POCT ORDERABLES - DEV ICE Final Result [facility] [address] [place] [address] * ECG 12 lead (08/04/2024 6:37 PM CDT) 08/04/2024 6:37 PM CDT Narrative [facility] - 08/05/2024 10:58 PM CDT Vent Rate: 68 bpm RR Interval: 875 msec OR Interval: 194 msec QRS Duration: 96 msec QT Interval: 380 msec QTC Interval: 397 msec P-R-T [place]: -8 - -21 - 16 degrees IMPRESSION: SINUS RHYTHM BORDERLINE LEFT AXIS DEVIATION LOW QRS VOLTAGE IN PRECORDIAL LEADS BORDERLINE ECG Electronically Signed By: Kevin Winter [facility] Card us Almita Hickey MD ECG ORDERABLES Final Res ult [facility]LY [facility] from Last 3 Months Insurance MEDICARE [facility] MEDICARE SUPPLEMENT MEDICARE [facility] MEDICARE BLUE CROSS MEDICARE SUPPLEMENT Advance Directives For more information, please contact: [phone] * Full Code (Latest Code Status on File) Date Activated Date Inactivated Comments 08/05/2024 12:34 AM 08/06/2024 7:16 PM Care Teams Visual Display Manager Relationship Specialty Start Date End Date Larry Morel MD PCP - General Family Medicine 12/05/19 Noam Horn MD [address] [place] [address] Referring Physician Endocrinology Diabetes & Metabolism 07/29/20 Hao Perez MD [address] [place] [address] Referring Physician Ophthalmology 07/29/20
--- OUTSIDE RECORDS SUMMARY | 2024-10-05 03:01 | XMS_ITS | Continuity of Care Document ---
Author Organization [facility] Address [address] [place] [address] Phone Care Team Providers Care Hooking Machine Operator Name Role Phone Moser OD, Oswaldo Unavailable Unavailable Procedures Procedure Date Eye Exam & Treatment Refraction Eye Exam & Treatment Refraction Eye Exam & Treatment Office/outpatient Visit, Est Office/outpatient Visit, Est Frames Deluxe [employer] - Medical No Charge Glasses Check Progressive Lens, Plastic [employer] - Medical Post-op Follow-up Visit Refraction Remove [...] Diagnoses Date Provider Providers Copied on Encounter [facility], [address], [place], [place], [id number], [place] tel:[phone] [facility] No Information Sep-0 9-201 0 Moser OD Oswaldo. [address] , [address], [place], [place], [facility], . tel:[phone] Referring Provider: Pantera Bolivar MD, [address] [facility] [address], [place], [address]. tel:[phone] [facility], [address] [place] [address] [address], [place], [place], [address], tel:[phone] [facility] No Information 2 1-200 9 Moser OD Oswaldo. [address] [facility] , [address], [place], [place], [facility], . tel:[phone] Referring Provider: Pantera Bolivar MD, [address] [facility] [address], [place], [address]. tel:[phone] [facility], [address] [place] [address] [address], [place], [place], [address], [place] tel:[phone] [facility] No Information 4-200 8 Moser OD Oswaldo. [address] , [address], [place], [place], [facility], . tel:[phone] Office/outpat ient Visit, [facility], [address] [place] [address] [address], [place], [place], [address], [place] tel:[phone] [facility] No Information 2 1-200 8 Moser OD Oswaldo. [address] , [address], [place], [place], [facility], . tel:[phone] Office/outpat ient Visit, [facility], [address] [place] [address] [address], [place], [place], [address], [place] tel:[phone] [facility] No Information 4-200 8 Moser OD Oswaldo. [address] , [address], [place], [address], [place]. tel:[phone] [facility], [address], [place], [place], [address], [place] tel:[phone] [facility] No Information Nov-2 7-200 7 [employer] . [address] [facility], [address], [place], [place], [address], [place]. tel:[phone] Consulting Provider: Uzma Larsen, [address] [place] [address], [facility]. tel:[phone] [facility], [address], [place], [place], [address], [place] tel:[phone] [facility] No Information Nov-0 1-200 7 Moser OD Oswaldo. [address] [facility] [address], [address], [place], [facility], [place]. tel:[phone] [facility], [address], [place], [place], [address], [place] tel:[phone] [facility] No Information Oct-0 9-200 7 [employer] . [address] [facility], [address], [place], [place], [address], [place]. tel:[phone] Referring Provider: Sherwin Rubi, [address] [place], [place] [address]ate [address], [place], [place], [facility]. tel:[phone] lting Provider: Uzma Larsen, [address] [place] [address], [address]. tel:[phone] [facility], [address], [place], [place], [address], [place] tel:[phone] [facility] No Information Oct-0 5-200 7 Lucio Courtney. [facility] [address], [address], [place], [facility], [place]. tel:[phone] [facility], [address], [place], [place], [address], [place] tel:[phone] [facility] No Information Sep-2 1-200 7 Doisy Edward. [address] , [address], [place], [facility], . tel:[phone] [facility], [address] [place] [address] [address], [place], [place], [address], [place] tel:[phone] [facility] [employer] No Information Sep-2 1-200 7 Doisy Edward. [address] , [address], [place], [facility], [place]. tel:[phone] [facility], [address], [place], [place], [address], [place] tel:[phone] [facility] No Information Sep-1 9-200 7 Doisy Edward. [address] , [address], [place], [facility], [place]. tel:[phone] Referring Provider: Oswaldo Rubi, [facility] [address], [place], [facility]. tel:[phone] [facility], [address], [place], [place], [address], [place] tel:[phone] [facility] No Information Sep-1 2-200 7 Doisy Edward. [address] , [address], [place], [facility], [place]. tel:[phone] [facility], [address], [place], [place], [address], [place] tel:[phone] [facility] No Information Sep-1 1-200 7 Doisy Edward. [address] , [address], [place], [facility], [place]. tel:[phone] Referring Provider: Oswaldo Moser OD A, [address], [place], [address]. tel:[phone] Office/outpat ient Visit, [facility], [address], [place], [place], [address], [place] tel:[phone] [facility] No Information Sep-0 5-200 7 Lucio Courtney. [address] , [address], [place], [facility], [place]. tel:[phone] Referring Provider: Sherwin Rubi, [address], [place], [facility]. tel:[phone] [facility], [address] [place] [address] [address], [place], [place], [address], [place] tel:[phone] [facility] No Information Aug-2 3-200 7 Moser OD Oswaldo. [address] [facility] , [address], [place], [facility], [place]. tel:[phone] Referring Provider: Pantera Bolivar MD, [address] [facility] [address], [place], [address]. tel:[phone] Office/outpat ient Visit, [facility], [address] [place] [address] [address], [place], [place], [address], [place] tel:[phone] [facility] No Information Apr-0 2-200 7 Wanjonathan Levy. [address] [facility], [address], [place], [place], [address], [place]. tel:[phone] [facility], [address] [place] [address] [address], [place], [place], [address], [place] tel:[phone] [facility] No Information Jay-0 9-200 7 Moser OD Oswaldo. [address] [facility] [address], [address], [place], [address], [place]. tel:[phone] Family History Family Member Type Diagnosis Age At Onset No Information Payers Payer name Insurance type Covered democrat ID Authoriza tion(s) No Information Social History [...]
--- OUTSIDE RECORDS SUMMARY | 2024-10-05 03:01 | XMS_ITS | Clinical Summary ---
Author Organization [facility] Address [address] [place] [address] Care Team Providers Care Stations Superintendent Name Role Phone Pantera Bolivar MD Primary Care Provider [phone] Allergies No known active allergies Medications tadalafil [...] Date Type Department Care Team Description 10/04/2024 External Device Data [facility] ABSTRACTION Provider, Abstract 10/03/2024 External Device Data [facility] ABSTRACTION Provider, Abstract 10/02/2024 Orders Only [facility] On[facility] [address] [place] [id number] Mikael Gomes MD 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 Orders Only [facility] [address] [place] [address] Mikael Gomes MD Benign hypertension 09/18/2024 Orders Only [facility] [address] [place] [address] Mikael Gomes MD Carcinoma in situ of bladder 09/13/2024 Orders Only [facility] On[facility] H[facility]ology - [place] [address] [place] [address] Mikael Gomes MD 09/12/2024 10:00 AM CDT Office Visit [facility] [address] [place] [id number] Remedios Vickers MD Chronic anemia (Primary Dx); Carcinoma in situ of bladder 09/12/2024 Orders Only [facility] [address] Mikael Gomes MD 09/11/2024 Orders Only [facility] - [place] [address] Mikael Gomes MD Benign hypertension 09/04/2024 Orders Only [facility] - [place] [address] Mikael Gomes MD Carcinoma in situ of bladder 08/29/2024 External Device Data [facility] ABSTRACTION Provider, Abstract 08/28/2024 Orders Only [facility] - [place] [address] Mikael Gomes MD Benign hypertension 08/22/2024 External Device Data [facility] ABSTRACTION Provider, Abstract 08/22/2024 Orders Only [facility] - [place] [address] Mikael Gomes MD 08/21/2024 Orders Only [facility] - [place] [address] Mikael Gomes MD Carcinoma in situ of bladder 08/14/2024 Orders Only [facility] - [place] [address] [place] [phone] Mikael Gomes MD Benign hypertension 08/07/2024 Orders Only [facility] - [place] [address] [place] [id number] Mikael Gomes MD Carcinoma in situ of bladder 08/02/2024 External Device Data [facility] ABSTRACTION Provider, Abstract 08/01/2024 11:15 AM CDT Office Visit [facility] - [place] [address] [place] [phone] Mikael Gomes MD Carcinoma in situ of bladder (Primary Dx) 08/01/2024 Orders Only [facility] - [place] [address] [place] [address] Mikael Gomes MD Benign hypertension (Primary Dx) 07/25/2024 Orders Only [facility] - [place] [address] [place] [address] Mikael Gomes MD 07/24/2024 External Device Data [facility] ABSTRACTION Provider, Abstract 07/24/2024 Orders Only [facility] - [place] [address] [place] [id number] Mikael Gomes MD Carcinoma in situ of bladder 07/12/2024 Abstract [facility] - [place] [address] [place] [address] Mikael Gomes MD 07/11/2024 9:30 AM 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 Office Visit [facility] - [place] [address] [place] [phone] Mikael Gomes MD Carcinoma in situ of bladder (Primary Dx) 07/11/2024 External Device Data [facility] ABSTRACTION Provider, Abstract 07/10/2024 Orders Only [facility]ology - [place] [address] [place] [address] Mikael Gomes MD Carcinoma in situ of [...] on file Legal Sex Male 3:22 AM 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 Gender Identity Male 09/13/2024 10:33 AM CDT Sexual Orientation Straight 09/13/2024 10 :33 AM CDT Last Filed Vital Signs Vital Sign Reading Time Taken Comments Blood Pressure 129/71 09/12/2024 9:47 AM CDT Pulse 71 09/12/2024 9:47 AM CDT Temperature 36.2 C (97.1 F) 09/12/2024 9:47 AM CDT Respiratory Rate 15 09/12/2024 9:47 AM CDT Oxygen Saturation 96% 09/12/2024 9:47 AM CDT Inhaled Oxygen Concentration - - Weight 94.4 kg (208 lb 3.2 oz) 09/12/2024 9:47 A M CDT Height 185.4 cm (6' 1 ) 02/17/2024 3:14 PM CDT Body Mass Index 27.47 02/17/2024 3:14 PM CDT Plan of Treatment Upcoming Encounters Date Type Department Care Team (Late st Contact Info) Description 10/24/2024 9:30 AM CDT Office Visit [facility] On[facility] and H[facility]ology - [place] [address] [facility] [address] [place] [address] Mikael Gomes MD [address] [facility] [address] [place] [address] Health Maintenance Due Date Last Done Comments DTAP/TDAP/TD VACCINES (1 - Tdap) 1968 COLORECTAL SCREENING 1994 Colorectal Cancer Screening 1994 [...] Procedure Name Priority Date/Time Associated Diagnosis Comments CBC MIXED CELL DIFFERENTIAL Routine 09/12/2024 1:02 PM CDT COMPREHENSIVE METABOLIC PANEL Routine 09/12/2024 8:55 AM CDT BASIC METABOLIC PANEL Routine 09/12/2024 7:45 AM CDT COMPREHENSIVE METABOLIC PANEL Routine 08/22/2024 4:17 PM CDT CBC MIXED CELL DIFFERENTIAL Routine 08/22/2024 3:55 PM CDT BASIC METABOLIC PANEL Routine 08/22/2024 3:38 PM CDT BASIC METABOLIC PANEL Routine 08/22/2024 3:16 PM CDT BASIC METABOLIC PANEL Routine 07/11/2024 4:23 PM 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 COMPREHENSIVE METABOLIC PANEL Routine 07/11/2024 4:15 PM 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 CBC WITH DIFFERENTIAL Routine 07/11/2024 2:25 PM 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 from Last 3 Months Results * CBC MIXED CELL DIFFERENTIAL (09/12/2024 1:02 PM CDT) Only the most recent of2 resultswithin the time period is included. Blood us Mikael Gomes MD HEMATOLOGY ORDERABLES Final Res ult * COMPREHENSIVE METABOLIC PANEL (09/12/2024 8:55 AM CDT) Only the most recent of3 resultswithin the time period is included. Blood us Mikael Gomes MD CHEMISTRY ORDERABLES Final Resu lt * BASIC METABOLIC PANEL (09/12/2024 7:45 AM CDT) Only the most recent of4 resultswithin the time period is included. Blood us Mikael Gomes MD CHEMISTRY ORDERABLES Final Resu lt * CBC WITH DIFFERENTIAL (07/11/2024 2:25 PM 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) Blood us Mikael Gomes MD HEMATOLOGY ORDERABLES Final Res ult from Last 3 Months Insurance MEDICARE PART A AND B [employer] SUPP Care Teams Stations Superintendent Relationship Specialty Start Date End Date Pantera Bolivar MD [address] [place] [phone] PCP - General 05/02/15
--- OUTSIDE RECORDS SUMMARY | 2024-10-05 03:01 | XMS_ITS | Encounter Summary ---
Author Organization [facility] [employer] Address [address] [place] [address] Care Team Providers Care Piece Dye Worker Name Role Phone Pantera Bolivar MD Primary Care Provider [phone] Encounter Details Date Type Department Care Team (Late Contact Info) Description 10/02/[address] [facility] On[facility] [address] [place] [address] Mikael Gomes MD [address] [place], [place] [address] [address] [place] [phone] Carcinoma in situ of bladder Social History Tobacco Use Types Packs/Day Years Used Date Smoking Tobacco: Former Cigarettes 2 10 Q uit: 02/16/1989 Alcohol Use Standard Drinks/Week Comments Yes 0 (1 standard drink = 0.6 oz pur e alcohol) occasionally Sex and Gender Information Value Date Recorded Sex Assigned at Not on file Legal Sex Male 3:22 AM RECOVERY COLLECTOR Gender Identity Male 09/13/2024 10:33 AM CDT Sexual Orientation Straight 09/13/2024 10 :33 AM CDT documented as of this encounter Plan of Treatment Upcoming Encounters Date Type Department Care Team (Late Contact Info) Description 10/24/2024 9:30 AM CDT Office Visit [facility] On[facility] [address] [place] [address] Mikael Gomes MD [address] [place] [address] [employer] [address] [place] [phone] documented as of this encounter Visit Diagnoses Diagnosis Carcinoma in situ of bladder documented in this encounter Care Teams Piece Dye Worker Relationship Specialty Start Date End Date Pantera Bolivar MD [address] [place] [phone] PCP - General 05/02/15 documented as of this encounter
--- OUTSIDE RECORDS SUMMARY | 2024-10-05 03:01 | XMS_ITS | Clinical Summary ---
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 07/29/2020 Overview (07/29/2020): Added automatically from request for surgery [id number] Encounters Date Type Department Care Team Description 10/04/2024 1:29 PM CDT Anesthesia Event [facility] Operating Room [address] [place] [phone] Tonny Stafford DO Eubanks, Marianna, CRNA 10/04/2024 12:30 PM CDT - 10/04/2024 1:45 PM CDT Surgery [facility] Operating Room [address] [place] [phone] Rell Worthy MD Cystoscopy 10/04/2024 10:19 AM CDT - 10/04/2024 4:10 PM CDT Hospital Encounter [facility] Operating Room [address] [place] [phone] Rell Worthy MD Gross hematuria Discharge Disposition: Discharge to home or self care 10/03/2024 12:00 PM CDT Pre-Admission Testing [facility] Pre Anesthesia Testing [address] [place] [phone] 10/02/2024 Telephone [facility] Pre Anesthesia Testing [address] [place] [address] MiniMarium marinWong 08/29/2024 9:20 AM CDT Office Visit [facility] Orthopaedic Surgery [address] [place] [address] [place] [address] Issa Montana MD Arthritis of carpometacarpal (CMC) joint of left thumb (Primary Dx); Arthritis, degenerative, localized, primary, hand, left 08/04/2024 6:33 PM CDT - 08/06/2024 3:00 PM CDT Hospital Encounter [facility] [address] [place] [address] Almita Hickey MD Li, MD Harsha Harding, Donnie Justin, Marques Robertson MD TIA (transient ischemic attack) (Primary Dx) Discharge Disposition: Discharge to home or self care from Last 3 Months Immunizations Immunization Administration [...] n ow on chronic AC w warfarin Type 2 diabetes mellitus (HCC) Family History Medical History Relation Name Comments [...] on file 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 Gender Identity Not on file Sexual Orientation [...] 10/04/2024 11:02 AM CDT Plan of Treatment Health Maintenance Due Date Last Done Comments Albumin Creatinine Ratio, Urine 1950 Colon Cancer Screening-Colonoscopy 1950 Hepatitis C Screening 1950 Dilated Eye Exam 1950 Foot Exam 1950 DTaP/Tdap/Td Vaccine (1 - Tdap) 1960 Hepatitis B Screening 1967 Pneumococcal vaccine 65+ (1 of 2 - PCV) 1968 Zoster Vaccine (2 of 3) 06/13/2012 04/18/2012 Abdominal Aortic Aneurysm (AAA) Screen 2014 Well Visit 65+ 2014 Influenza Vaccine (Season Ended) 2025 02/07/20 14 Hemoglobin A1C 02/05/2025 08/05/2024 Depression Screening 08/04/2025 08/04/2024 Lipid Panel 08/05/2025 08/05/2024 eGFR 08/05/2025 08/05/2024, 08/04/2024 Fall Risk Assessment 10/04/2025 10/04/2024 Medical Devices Implanted Type Area Molder Pipe Covering Device Identifier Shelf Expiration Date Model / Serial / Lot [employer] Ar-8978-Cp Internalbrace Kit Hand Wrist Set Implant Ligament Augmentation - [id number] Implanted:Qty: 1 on 08/14/2020 by Issa Montana MD at [facility] Right: Thumb [employer] [id number] 06/16/2025 AR-8978-C P / / [id number] [employer] Mcp-50 Mcp 50 Joint Finger Silicone Ii Sterile Latex Free - [id number] Implanted:Qty: 1 on 08/14/2020 by Issa Montana MD at [facility] Right: Index Finger [facility] [employer] [id number] 01/14/2023 MCP-50 / / [id number] Procedures Procedure Name Priority Date/Time Associated Diagnosis Comments POCT GLUCOSE DEVICE Routine 10/04/2024 2 :[address] AN PROCEDURE PLACEHOLDER Routine 10/04/2024 1:[address] AN ELECTIVE SUPRAGLOTTIC AIRWAY Routine 10/04/2024 1:40 PM CDT BIOPSY BLADDER - CYSTOSCOPY 10/04/2024 1:30 PM CDT Gross hematuria CYSTOSCOPY CLOT EVACUATION 10/04/2024 1:30 PM CDT Gross hematuria POCT GLUCOSE DEVICE Routine 10/04/2024 11:[address] ARTHROCENTESIS ASPIR&/INJ SMALL JT/BURSA W/O US Routine 08/29/2024 9:20 AM CDT Arthritis, degenerative, localized, primary, hand, left CT ARTHROCENTESIS ASPIR&/INJ SMALL JT/BURSA W/O US Routine [...] be considered if clinically indicated. POC Performer [id number] [facility] Blood 10/04/2024 2:19 PM CDT 10/04/2024 2:19 PM CDT us Rell Worthy MD LAB POCT ORDERABLES - DEVICE F inal Result [facility] [address] Department [place] [address] * CT AN ELECTIVE SUPRAGLOTTIC AIRWAY, CT AN PROCEDURE PLACEHOLDER (10/04/2024 1:40 PM CDT) Narrative Janae Campo CRNA - 10/04/2024 1:40 PM CDT Janae Campo CRNA 10/04/2024 1:41 PM Airway Patient location: OR Urgency: elective Indications for airway management: anesthesia Difficult airway: no Staff: Supervising provider: Tonny Stafford DO Placed by: GENERAL OPERATOR: Janae Campo CRNA Emergent airway documentation: Risks and benefits discussed: yes Consent obtained: yes Consent given by: patient Airway prep: Preoxygenated: yes Patient position: sniffing Mask difficulty assessment: 0 - not attempted Sedation level during airway: GA Final airway details: Final airway type: supraglottic airway Final supraglottic airway: [place] SGA size: 5 Number of attempts: 1 [...] be considered if clinically indicated. POC Performer [id number] [facility] Blood 10/04/2024 11:0 8 AM CDT 10/04/2024 11:08 AM CDT us Rell Worthy MD LAB POCT ORDERABLES - DEVICE F inal Result [facility] [address] Department [place] [address] * CT ARTHROCENTESIS ASPIR&/INJ SMALL JT/BURSA W/O US (08/29/2024 9:20 AM CDT) Narrative sIsa Montana MD - 08/29/2024 9:20 AM CDT [...] MD IN CLINIC/BEDSIDE ORDERABLES Final Result * CT ARTHROCENTESIS ASPIR&/INJ SMALL JT/BURSA W/O US (08/29/2024 [...] PM CDT Narrative 09/07/2024 12:30 PM CDT [address] [place] [address] CARDIAC EVENT MONITOR REPORT Patient Name: ROSCOE SUTHERLAND J : 1950 (74y 5m) Gender: M Study Date: 09/04/2024 11:59:00 PM Ht(Inch): Wt(Lb): BSA: Tech: Location: [id number] Order Provider: GURDEEP HERRERA BMI: Ref Provider: [...] By: Reed angel 09/07/2024 12:29:14 PM CDT Procedure Note Reed Cohen MD - 09/07/2024 [address] [place] [address] CARDIAC EVENT MONITOR REPORT Patient Name: ROSCOE SUTHERLAND J : 1950 (74y 5m) Gender: M Study Date: 09/04/2024 11:59:00 PM Ht(Inch): Wt(Lb): BSA: Tech: Location: [address] Order Provider: GURDEEP HERRERA BMI: Ref [...] episodes. Electronically Signed By: Reed Cohen MD mobap 09/07/2024 12:29:14 PM CDT Gurdeep Herrera NP CV CARDIAC SERVICES PROCEDURES Final Result * POCT glucose (08/06/2024 11:40 AM CDT) [facility] Glucose, POC 150 70 - 199 mg/dL Comment: For Glucose values <35 mg/dl when Hematocrit is >60 mg/dl,the test may not accurately detect significant hypoglycemia,and testing in the Laboratory should be considered if clinically indicated. POC Performer [id number] [facility] Blood 08/06/2024 11:4 0 AM CDT 08/06/2024 11:40 AM CDT Marques Hull MD LAB POCT ORDERABLES - DEVICE Fin al Result [facility] [address] Department [place] [address] * POCT glucose (08/06/2024 7:50 AM CDT) [facility] Glucose, POC 161 70 - 199 mg/dL Comment: For Glucose values <35 mg/dl when Hematocrit is >60 mg/dl,the test may not accurately detect significant hypoglycemia,and testing in the Laboratory should be considered if clinically indicated. POC Performer [id number] [facility] Blood 08/06/2024 7:50 AM CDT 08/06/2024 7:50 AM CDT us Marques Hull MD LAB POCT ORDERABLES - DEVICE Fin al Result [facility] [address] Department [place] [address] * (ABNORMAL) Differential, auto (08/06/2024 7:33 AM CDT) [facility] Neutrophil abs 2.6 1.5 - 6.5 K/cumm Imm gran abs 0.0 0.0 - 0.1 K/cumm [facility] Lymphocyte abs 1.2 0.8 - 3.3 K/cumm [facility] Monocyte abs 0.6 0.2 - 0.8 K/cumm [facility] Eosinophil abs 0.7(H) 0.0 - 0.5 K/cumm [facility] Basophil abs 0.1 0.0 - 0.1 K/cumm [facility] Neutrophil pct 50.7 % [facility] Comment: Interpretive Data Percent cell count reference ranges are not reported, since discordance with absolute values may lead to misinterpretation of CBC data. Current Interpretive Data was last revised on 2017. Imm gran pct 0.4 % [facility] Comment: Interpretive Data Percent cell count reference ranges are not reported, since discordance with absolute values may lead to misinterpretation of CBC data. Current Interpretive Data was last revised on 2017. Lymphocyte pct 23.3 % [facility] Comment: Interpretive Data Percent cell count reference ranges are not reported, since discordance with absolute values may lead to misinterpretation of CBC data. Current Interpretive Data was last revised on 2017. Monocyte pct 11.2 % [facility] Comment: Interpretive Data Percent cell count reference ranges are not reported, since discordance with absolute values may lead to misinterpretation of CBC data. Current Interpretive Data was last revised on 2017. Eosinophil pct 13.2 % [facility] Comment: Interpretive Data Percent cell count reference ranges are not reported, since discordance with absolute values may lead to misinterpretation of CBC data. Current Interpretive Data was last revised on 2017. Basophil pct 1.2 % [facility] Comment: Interpretive Data Percent cell count reference ranges are not reported, since discordance with absolute values may lead to misinterpretation of CBC data. Current Interpretive Data was last revised on 2017. Blood 08/06/2024 7:33 AM CDT 08/06/2024 8:04 AM CDT us Gurdeep Herrera CLOTH EXAMINER MACHINE LAB BLOOD ORDERABLES Final Resu lt [facility] [address] Department [place] [address] * (ABNORMAL) CBC with auto differential (08/06/2024 7:33 AM CDT) WBC 5.2 3.8 - 9.9 K/cumm Hgb 15.2 13.0 - 17.5 g/dL [facility] Hct 47.4 38.9 - 50.3 % [facility] Plt 256 150 - 400 K/cumm [facility] MPV 11.3 9.1 - 12.3 fL [facility] RBC 4.78 4.30 - 5.80 M/cumm [facility] MCV 99.2(H) 81.3 - 96.4 fL [facility] MCH 31.8 27.1 - 33.3 pg [facility] MCHC 32.1(L) 32.3 - 35.7 g/dL [facility] RDW CV 13.2 11.1 - 14.9 % [facility] RDW SD 48.2(H) 35.7 - 48.1 fL [facility] NRBC abs 0.00 0.00 - 0.01 K/cumm [facility] Blood 08/06/2024 7:33 AM CDT 08/06/2024 8:04 AM CDT Gurdeep Herrera NP LAB BLOOD ORDERABLES Final Resu lt Performing Organization Address City/[facility]/ZIP Co de Phone Number [facility] [address] [facility] [place] [address] * POCT glucose (08/05/2024 8:01 PM CDT) Glucose, POC 176 70 - 199 mg/dL Comment: For Glucose values <35 mg/dl when Hematocrit is >60 mg/dl,the test may not accurately detect significant hypoglycemia,and testing in the Laboratory should be considered if clinically indicated. POC Performer [id number] [facility] Blood 08/05/2024 8:01 PM CDT 08/05/2024 8:01 PM CDT Marques Hull MD LAB POCT ORDERABLES - DEVICE Fin al Result Performing Organization Address [facility] Co de Phone Number [facility] [address] [facility] [place] [address] * POCT glucose (08/05/2024 4:44 PM CDT) Glucose, POC 147 70 - 199 mg/dL Comment: For Glucose values <35 mg/dl when Hematocrit is >60 mg/dl,the test may not accurately detect significant hypoglycemia,and testing in the Laboratory should be considered if clinically indicated. POC Performer [id number] [facility] Blood 08/05/2024 4:44 PM CDT 08/05/2024 4:44 PM CDT Marques Hull MD LAB POCT ORDERABLES - DEVICE Fin al Result Performing Organization Address City/[facility]/ZIP Co de Phone Number [facility] [address] [facility] [place] [address] * TRANSTHORACIC ECHO (TTE) COMPLETE W DOPPLER/CF W CONTRAST (08/05/2024 2:48 PM CDT) LV EF 55-60 % CONS SCIMAGE Anatomical Region Laterality Modality Ultrasound 08/05/2024 9:44 AM CDT Narrative 08/05/2024 9:43 PM CDT [facility] [address] [place] [address] ECHOCARDIOGRAM Patient Name: ROSCOE SUTHERLAND J : 1950 (74y 4m) Gender: M Study Date: 08/05/2024 09:44:41 AM Ht(Inch): 73 Wt(Lb): 207.01 BSA: 2.2 Quick Sketch Artist: NEEL Location: [id number] Order Provider: DONNIE BONILLA BMI: 27.31 BP: [...] L shunt. Electronically Signed By: Kevin Winter [facility] Card 08/05/2024 9:43:08 PM CDT Procedure Note Kevin Winter MD - 08/05/2024 [address] [place] [address] ECHOCARDIOGRAM Patient Name: ROSCOE SUTHERLAND J : 1950 (74y 4m) Gender: M Study Date: 08/05/2024 09:44:41 AM Ht(Inch): 73 Wt(Lb): 207.01 BSA: 2.2 Quick Sketch Artist: NEEL Location: [address] Order Provider: DONNIE BONILLA BMI: 27.31 [...] Spencer shunt. Electronically Signed By: Kevin Winter [facility] Card 08/05/2024 9:43:08 PM CDT us Donnie Bonilla DO CV ECHO PROCEDURES Fin al Result * POCT glucose (08/05/2024 11:38 AM CDT) [facility] Signature Glucose, POC 187 70 - 199 mg/dL Comment: For Glucose values <35 mg/dl when Hematocrit is >60 mg/dl,the test may not accurately detect significant hypoglycemia,and testing in the Laboratory should be considered if clinically indicated. POC Performer [id number] [facility] Blood 08/05/2024 11:3 8 AM CDT 08/05/2024 11:38 AM CDT us Marques Hull MD LAB POCT ORDERABLES - DEVICE Fin al Result [facility] [address] Department [place] [address] * (ABNORMAL) Urinalysis reflex to microscopic and culture Urine (08/05/2024 10:12 AM CDT) Color, ur Yaz Yellow Clarity, ur Turbid(A) Clear [facility] Specific gravity, ur 1.021 1.003 - 1.030 [facility] pH, urine 6.5 [facility] Comment: Interpretive Data U rine pH is affected by diet, medications, systemic acid-base disturbances, and renal tubular function. pH may affect urinary stone formation. For example, urine pH below 6.0 may help reduce the tendency for calcium phosphate stones and pH greater than 6.0 may reduce the tendency for uric acid stone formation. Source: [facility] Current Interpretive Data was last revised on 2017 Protein, ur ql 1+(A) Negative [facility] Glucose, ur ql 3+(A) Negative [facility] Ketones, ur Negative Negative [facility] Bilirubin, ur Negative Negative [facility] Blood, ur 3+(A) Negative [facility] Urobilinogen, ur <2.0 <2.0 mg/dL [facility] Nitrite, ur Negative Negative [facility] Leukocyte esterase, ur 2+(A) Negative [facility] UA reflex comment Reflex to microscopic UA will be performed. [facility] Urine 08/05/2024 10:1 2 AM CDT 08/05/2024 10:19 AM CDT Donnie Bonilla DO LAB MICROBIOLOGY - GEN ERAL ORDERABLES Final Result [facility] [address] Department [place] [address] * (ABNORMAL) Urinalysis, microscopic only (08/05/2024 10:12 AM CDT) WBC, ur >50(A) 0 - 5 /HPF RBC, ur >50(A) 0 - 2 /HPF [facility] Epithelial cells, squamous, ur 1-5 0 - 5 /HPF [facility] Culture Reflex Comment Reflex to urine culture will be performed. [facility] Urine 08/05/2024 10:1 2 AM CDT 08/05/2024 12:05 PM CDT Donnie Bonilla DO LAB URINE ORDERABLES F inal Result Performing Organization Address [facility] Co de Phone Number [facility] [address] [place] [address] * Urine culture Urine (08/05/2024 10:12 AM CDT) Pathologist [facility] Report Final Report: No growth Urine 08/05/2024 10:1 2 AM CDT 08/05/2024 12:06 PM CDT Narrative [facility] - 08/07/2024 9:28 AM CDT Urine culture reflexed based upon urinalysis results. Donnie Bonilla DO LAB MICROBIOLOGY - GEN ERAL ORDERABLES Final Result Performing Organization Address [facility] de Phone Number [facility] [address] [place] [address] * POCT glucose (08/05/2024 7:53 AM CDT) [facility] Glucose, POC 149 70 - 199 mg/dL Comment: For Glucose values <35 mg/dl when Hematocrit is >60 mg/dl,the test may not accurately detect significant hypoglycemia,and testing in the Laboratory should be considered if clinically indicated. POC Performer [phone] [facility] Glucose comment 1 RN/MD Notified [facility] Blood 08/05/2024 7:53 AM CDT 08/05/2024 7:53 AM CDT us Marques Hull MD LAB POCT ORDERABLES - DEVICE Fin al Result Performing Organization Address [facility] Co de Phone Number [facility] [address] [facility] [place] [address] * eGFR (08/05/2024 6:10 AM CDT) eGFR [...] MD LAB BLOOD ORDERABLES Final Resul t [facility] [address] [email or web address] [address] * (ABNORMAL) Thyroid Function [place] (08/05/2024 6:10 AM CDT) TSH 4.44(H) 0.30 - 4.20 mcIUnit/mL Blood 08/05/2024 6:10 AM CDT 08/05/2024 6:45 AM CDT Shellie Roldan MD LAB BLOOD ORDERABLES Final Resul t [facility] [address] Department of [employer] [place], [place] [id number] * (ABNORMAL) CBC without differential (08/05/2024 6:10 AM CDT) WBC 4.9 3.8 - 9.9 K/cumm Hgb 14.6 13.0 - 17.5 g/dL [facility] Hct 44.6 38.9 - 50.3 % [facility] Plt 227 150 - 400 K/cumm [facility] MPV 11.3 9.1 - 12.3 fL [facility] RBC 4.58 4.30 - 5.80 M/cumm [facility] MCV 97.4(H) 81.3 - 96.4 fL [facility] MCH 31.9 27.1 - 33.3 pg [facility] MCHC 32.7 32.3 - 35.7 g/dL [facility] RDW CV 13.4 11.1 - 14.9 % [facility] RDW SD 48.0 35.7 - 48.1 fL [facility] NRBC abs 0.00 0.00 - 0.01 K/cumm [facility] Blood 08/05/2024 6:10 AM CDT 08/05/2024 6:45 AM CDT Shellie Roldan MD LAB BLOOD ORDERABLES Final Resul t Performing Organization Address City/[facility]/ZIP Co de Phone Number [facility] [address] [facility] [place] [address] * T4, free (08/05/2024 6:10 AM CDT) Free T4 1.33 0.90 - 1.70 ng/dL Blood 08/05/2024 6:10 AM CDT 08/05/2024 6:45 AM CDT Narrative [facility] - 08/05/2024 7:40 AM CDT This test was reflexed from a TSH result. Shellie Roldan MD LAB BLOOD ORDERABLES Final Resul t [facility] [address] [place] [address] * Phosphorus (08/05/2024 6:10 AM CDT) Pathologist [facility] Phosphorus, pl 2.6 2.3 - 4.5 mg/dL Blood 08/05/2024 6:10 AM CDT 08/05/2024 6:45 AM CDT us Shellie Roldan MD LAB BLOOD ORDERABLES Final Resul t Performing Organization Address [facility] Co de Phone Number [facility] [address] [facility] [employer] [place], [place] [id number] * Magnesium (08/05/2024 6:10 AM CDT) [facility] Magnesium 1.9 1.4 - 2.5 mg/dL Blood 08/05/2024 6:1 0 AM CDT 08/05/2024 6:45 AM CDT us Shellie Roldan MD LAB BLOOD ORDERABLES Final Resul t Performing Organization Address [facility] de Phone Number [facility] [address] [email or web address] [address] * (ABNORMAL) Hemoglobin A1c (08/05/2024 6:10 AM CDT) [facility] Hgb A1C 7.1(H) 4.0 - 5.6 % Estimated Average Glucose 157 mg/dL [facility] Comment: The ADA recommends reporting an estimated Average Glucose (eAG) with all Hemoglobin A1c results using the equation derived from a study of 507 normal and diabetic adults. Minority populations were underrepresented and children were not included. (Diabetes Care 31:5462-1032, 2008). The eAG is not equivalent to a fasting glucose. Blood 08/05/2024 6:10 AM CDT 08/05/2024 6:45 AM CDT us Shellie Roldan MD LAB BLOOD ORDERABLES Final Resul t Performing Organization Address [facility] Co de Phone Number [facility] [address] Department [employer] [place], [place] [id number] * Lipid panel (08/05/2024 6:10 AM CDT) [...] revised on 2018. Triglycerides 65 <=149 mg/dL [facility] Comment: Interpretive Data Ages < or = [...] revised on 2018. HDL 42 >=40 mg/dL [facility] Comment: Interpretive Data Ages < or = [...] on 2018. LDL, calculated 56 <=129 mg/dL [facility] Comment: Interpretive Data Ages < or = [...] 3. Lowell Vieira et al. JONATHAN Cardiol. 2020 September 14;5(5):540-548. doi: 10.1001/jamacardio.2020.0013 Current Interpretive Data was last revised on 2024. Non-HDL Cholesterol 70 mg/dL [facility] Comment: Interpretive Data Ages < or = [...] last revised on 2018. Chol/HDL ratio 3 [facility] Blood 08/05/2024 6:10 AM CDT 08/05/2024 6:45 AM CDT us Shellie Roldan MD LAB BLOOD ORDERABLES Final Resul t [facility] [address] Department [place] [address] * Basic metabolic panel (08/05/2024 6:10 AM CDT) Sodium 135 135 - 145 mmol/L Potassium, pl 3.8 3.3 - 4.9 mmol/L [facility] Chloride 102 97 - 110 mmol/L [facility] CO2 23 22 - 32 mmol/L [facility] Anion gap 10 2 - 15 mmol/L [facility] BUN 16 6 - 25 mg/dL [facility] Creatinine 0.94 0.80 - 1.30 mg/dL [facility] Glucose 168 70 - 199 mg/dL [facility] Comment: Interpretive Data Fasting glucose >/= 126 [...] classification and Diagnosis of Diabetes Diabetes Care 202; 46: S19-S40. Current interpretive data was last revised 2022. Calcium 9.6 8.5 - 10.3 mg/dL [facility] Blood 08/05/2024 6:10 AM CDT 08/05/2024 6:45 AM CDT us Shellie Roldan MD LAB BLOOD ORDERABLES Final Resul t Performing Organization Address City/[facility]/ZIP Co de Phone Number [facility] [address] Department [place] [address] * POCT glucose (08/05/2024 5:47 AM CDT) [facility] Signature Glucose, POC 145 70 - 199 mg/dL Comment: For Glucose values <35 mg/dl when Hematocrit is >60 mg/dl,the test may not accurately detect significant hypoglycemia,and testing in the Laboratory should be considered if clinically indicated. POC Performer [phone] [facility] Blood 08/05/2024 5:47 AM CDT 08/05/2024 5:47 AM CDT Donnie Bonilla DO LAB POCT ORDERABLES - DEVICE Final Result Performing Organization Address City/[facility]/ZIP Co de Phone Number [facility] [address] Department [place] [address] * POCT glucose (08/05/2024 1:20 AM CDT) Glucose, POC 125 70 - 199 mg/dL Comment: For Glucose values <35 mg/dl when Hematocrit is >60 mg/dl,the test may not accurately detect significant hypoglycemia,and testing in the Laboratory should be considered if clinically indicated. POC Performer [phone] [facility] Blood 08/05/2024 1:20 AM CDT 08/05/2024 1:20 AM CDT us Shellie Roldan MD LAB POCT ORDERABLES - DEVICE Fin al Result [facility] [address] Department [place] [address] * MRI Brain WO Contrast (08/05/2024 12:30 [...] by: Teto Briscoe MD Shellie Roldan MD IMG MRI PROCEDURES Final Result * POCT glucose (08/04/2024 10:44 PM CDT) Glucose, POC 165 70 - 199 mg/dL Comment: For Glucose values <35 mg/dl when Hematocrit is >60 mg/dl,the test may not accurately detect significant hypoglycemia,and testing in the Laboratory should be considered if clinically indicated. POC Performer [id number] [facility] Blood 08/04/2024 10:4 4 PM CDT 08/04/2024 10:44 PM CDT Almita Hickey MD LAB POCT ORDERABLES - DEV ICE Final Result ROS [facility] [address] Department [place] [address] * CTA Stroke Head Neck W WO Contrast (08/04/2024 10:31 PM CDT) Anatomical Region Laterality Modality Head and Neck N/A Computed Tomogra phy 08/04/2024 10:1 9 PM CDT Impressions 08/05/2024 2:[address] evidence of stroke. No acute intracranial abnormality. 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 For the purposes of quality assurance coordinator, this study was initially interpreted by teleradiology. [...] L ICA terminus: Reconstitution secondary to the tejon of Rea L M1: no occlusion or [...] Artery: no occlusion or significant stenosis L DIRECTOR OF OUTREACH: no occlusion or significant stenosis R DIRECTOR OF OUTREACH: no occlusion or significant stenosis No cerebral [...] into the superior vena cava. Procedure Note BriscoeTeto MD - 08/05/2024 EXAMINATION: Computed tomography angiography [...] L ICA terminus: Reconstitution secondary to the tejon of Rea L M1: no occlusion or [...] Artery: no occlusion or significant stenosis L DIRECTOR OF OUTREACH: no occlusion or significant stenosis R DIRECTOR OF OUTREACH: no occlusion or significant stenosis No cerebral [...] level of the carotid terminus via the tejon of Rea, likely chronic. For the purposes of quality assurance coordinator, this study was initially interpreted by teleradiology. [...] MD LAB BLOOD ORDERABLES Vee rosario Result [facility] [address] Department [place] [address] * (ABNORMAL) Differential, auto (08/04/2024 6:50 PM CDT) Neutrophil abs 2.6 1.5 - 6.5 K/cumm Imm gran abs 0.0 0.0 - 0.1 K/cumm [facility] Lymphocyte abs 1.8 0.8 - 3.3 K/cumm [facility] Monocyte abs 0.7 0.2 - 0.8 K/cumm [facility] Eosinophil abs 0.7(H) 0.0 - 0.5 K/cumm [facility] Basophil abs 0.1 0.0 - 0.1 K/cumm [facility] Neutrophil pct 44.3 % [facility] Comment: Interpretive Data Percent cell count reference ranges are not reported, since discordance with absolute values may lead to misinterpretation of CBC data. Current Interpretive Data was last revised on 2017. Imm gran pct 0.3 % [facility] Comment: Interpretive Data Percent cell count reference ranges are not reported, since discordance with absolute values may lead to misinterpretation of CBC data. Current Interpretive Data was last revised on 2017. Lymphocyte pct 30.1 % [facility] Comment: Interpretive Data Percent cell count reference ranges are not reported, since discordance with absolute values may lead to misinterpretation of CBC data. Current Interpretive Data was last revised on 2017. Monocyte pct 11.7 % [facility] Comment: Interpretive Data Percent cell count reference ranges are not reported, since discordance with absolute values may lead to misinterpretation of CBC data. Current Interpretive Data was last revised on 2017. Eosinophil pct 12.2 % [facility] Comment: Interpretive Data Percent cell count reference ranges are not reported, since discordance with absolute values may lead to misinterpretation of CBC data. Current Interpretive Data was last revised on 2017. Basophil pct 1.4 % [facility] Comment: Interpretive Data Percent cell count reference ranges are not reported, since discordance with absolute values may lead to misinterpretation of CBC data. Current Interpretive Data was last revised on 2017. Blood 08/04/2024 6:50 PM CDT 08/04/2024 7:04 PM CDT us Almita Hickey MD LAB BLOOD ORDERABLES Vee rosario Result [facility] [address] Department [place] [address] * (ABNORMAL) CBC with auto differential (08/04/2024 6:50 PM CDT) WBC 5.9 3.8 - 9.9 K/cumm Hgb 15.6 13.0 - 17.5 g/dL [facility] Hct 48.5 38.9 - 50.3 % [facility] Plt 273 150 - 400 K/cumm [facility] MPV 11.1 9.1 - 12.3 fL [facility] RBC 4.92 4.30 - 5.80 M/cumm [facility] MCV 98.6(H) 81.3 - 96.4 fL [facility] MCH 31.7 27.1 - 33.3 pg [facility] MCHC 32.2(L) 32.3 - 35.7 g/dL [facility] RDW CV 13.4 11.1 - 14.9 % [facility] RDW SD 48.7(H) 35.7 - 48.1 fL [facility] NRBC abs 0.00 0.00 - 0.01 K/cumm [facility] Blood 08/04/2024 6:50 PM CDT 08/04/2024 7:04 PM CDT us Almita Hickey MD LAB BLOOD ORDERABLES Vee l Result [facility] [address] Department [place] [address] * Comprehensive metabolic panel (08/04/2024 6:50 PM CDT) Sodium 141 135 - 145 mmol/L Potassium, pl 4.4 3.3 - 4.9 mmol/L [facility] Chloride 104 97 - 110 mmol/L [facility] CO2 25 22 - 32 mmol/L [facility] Anion gap 12 2 - 15 mmol/L [facility] BUN 20 6 - 25 mg/dL [facility] Creatinine 1.13 0.80 - 1.30 mg/dL [facility] Glucose 147 70 - 199 mg/dL [facility] Comment: Interpretive Data Fasting glucose >/= 126 [...] 2022. Calcium 10.2 8.5 - 10.3 mg/dL [facility] Bilirubin, total 0.5 0.1 - 1.2 mg/dL [facility] Protein, pl 6.8 6.5 - 8.5 g/dL [facility] Albumin 4.1 3.5 - 5.0 g/dL [facility] Alk phos 64 40 - 130 Units/L [facility] ALT 24 7 - 55 Units/L [facility] AST 24 10 - 50 Units/L [facility] Comment:Slightly Hemolyzed S pecimen Blood 08/04/2024 6:50 PM CDT 08/04/2024 7:05 PM CDT us Almita Hickey MD LAB BLOOD ORDERABLES Vee l Result Performing Organization Address [facility]/ZIP Co de Phone Number [facility] [address] [facility] [address] [place], [place] [id number] * POCT glucose (08/04/2024 6:48 PM CDT) [facility] Glucose, POC 136 70 - 199 mg/dL Comment: For Glucose values <35 mg/dl when Hematocrit is >60 mg/dl,the test may not accurately detect significant hypoglycemia,and testing in the Laboratory should be considered if clinically indicated. POC Performer [phone] [facility] Blood 08/04/2024 6:48 PM CDT 08/04/2024 6:48 PM CDT us Almita Hickey MD LAB POCT ORDERABLES - DEV ICE Final Result Performing Organization Address [facility] Co de Phone Number [facility] [address] [place] [address] * ECG 12 lead (08/04/2024 6:37 PM CDT) 08/04/2024 6:37 PM CDT Narrative [facility] - 08/05/2024 10:58 PM CDT Vent Rate: 68 bpm RR Interval: [address] Interval: 194 msec QRS Duration: 96 msec QT Interval: 380 msec QTC Interval: 397 msec P-R-T Buhl: -8 - -21 - 16 degrees IMPRESSION: SINUS RHYTHM BORDERLINE LEFT AXIS DEVIATION LOW QRS VOLTAGE IN PRECORDIAL LEADS BORDERLINE ECG Electronically Signed By: Kevin Winter [facility] Card us Almita Hickey MD ECG ORDERABLES Final Res ult [facility] from Last 3 Months Insurance MEDICARE [facility] MEDICARE SUPPLEMENT MEDICARE [facility] MEDICARE BLUE CROSS MEDICARE SUPPLEMENT Advance Directives For more information, please contact: [phone] * Full Code (Latest Code Status on File) Date Activated Date Inactivated Comments 08/05/2024 12:34 AM 08/06/2024 7:16 PM Care Teams Applied Computer Science Professor Relationship Specialty Start Date End Date Larry Morel MD PCP - General Family Medicine 12/05/19 Noam Horn MD [address] [place] [address] Referring Physician Endocrinology Diabetes & Metabolism 07/29/20 Hao Perez MD [address] [place] [address] Referring Physician Ophthalmology 07/29/20
--- OUTSIDE RECORDS SUMMARY | 2024-10-05 03:01 | XMS_ITS | Encounter Summary ---
Author Organization [facility] Address [address] [place] [address] Care Team Providers Care Retail Business Manager Name Role Phone Pantera Bolivar MD Primary Care Provider [phone] Encounter Details Date Type Department Care Team (Late st Contact Info) Description 10/04/2024 External Device Data [place] ABSTRACTION Provider, Abstract NO ADDRESS ON FILE Social History Tobacco Use Types Packs/Day Years Used Date Smoking Tobacco: Former Cigarettes 2 10 Q uit: 02/16/1989 Alcohol Use Standard Drinks/Week Comments Yes 0 (1 standard drink = 0.6 oz pur e alcohol) occasionally Sex and Gender Information Value Date Recorded Sex Assigned at Not on file 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 Gender Identity Male 09/13/2024 10:33 AM CDT Sexual Orientation Straight 09/13/2024 10 :33 AM CDT documented as of this encounter Plan of Treatment Upcoming Encounters Date Type Department Care Team (Late st Contact Info) Description 10/24/2024 9:30 AM CDT Office Visit [facility] Oncology and Hematology - [place] [address] [place] [address] [address] [place] [address] Mikael Gomes MD [address] [facility] [address] [place] [address] documented as of this encounter Visit Diagnoses Not on filedocumented in this encounter Care Teams Retail Business Manager Relationship Specialty Start Date End Date Pantera Bolivar MD [address] [place] [address] [address] [place] [address] PCP - General 05/02/15 documented as of this encounter
--- OUTSIDE RECORDS SUMMARY | 2024-10-05 03:01 | XMS_ITS | Encounter Summary ---
Author Organization [facility] Address 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 Gender Identity Male 09/13/2024 10:33 AM CDT Sexual Orientation Straight 09/13/2024 10 :33 AM CDT documented as of this encounter Plan of Treatment Upcoming Encounters Date Type Department Care Team (Late st Contact Info) Description 10/24/2024 9:30 AM CDT Office Visit [facility] Oncology and Hematology - [place] [address] [place] [address] [address] [place] [address] Mikael Gomes MD [address] [facility] [address] [place] [address] documented as of this encounter Visit Diagnoses Not on filedocumented in this encounter Care Teams Flake Cutter Operator Relationship Specialty Start Date End Date Pantera Bolivar MD [address] [place] [address] [address] [place] [address] PCP - General 05/02/15 documented as of this encounter
--- NOTE | 2024-10-05 03:36 | ED.GENADULT ---
HPI - General Adult General Chief complaint: Urogenital-Male Stated complaint: post op decreased urine output Time Seen by Provider: 10/05/24 03:26 History of Present Illness HPI narrative: 74-year-old male presenting to the emergency department for evaluation for urinary retention. Patient did have a urologic procedure today and has had decreased urinary output since. Patient states he had increased difficulty urinating immediately after the procedure but the last 3 or 4 hours he has passed no urine. Patient does have significant discomfort upon arrival to the emergency department. Related Data Home Medications ?Medication ?Instructions ?Recorded ?Confirmed ?Last Taken ?Type levothyroxine 175 mcg tablet 175 mcg PO QAM 05/28/19 09/12/24 07/28/24 09:18 History metformin 500 mg tablet,extended 1,000 mg PO BID 05/28/19 09/12/24 07/28/24 22:19 History release 24hr (osmotic) insulin lispro 100 unit/mL See Rx Instructions .Route .COMPLEX 05/29/19 09/12/24 07/28/24 History subcutaneous pen (Humalog KwikPen (U-100) Insulin) mecobalamin (vitamin B12) 1,000 1,000 mcg sublingual QAM 09/16/20 09/12/24 07/28/24 09:19 History mcg disintegrating tablet,sublingual uotmwhrd-lngz-vghdr acid 400 1 tablet PO DAILY 02/13/22 09/12/24 07/28/24 09:19 History mcg-lycopene 600 mcg-ginkgo 120 mg tablet omeprazole 20 mg capsule,delayed 20 mg PO DAILY 06/08/22 09/12/24 07/28/24 09:19 History release semaglutide 1 mg/dose (4 mg/3 mL) 1.5 mg subcut WEEKLY 04/12/23 09/12/24 07/26/24 History subcutaneous pen injector insulin glargine 100 unit/mL (3 45 unit subcut .COMPLEX 03/07/24 09/12/24 07/28/24 09:18 History mL) subcutaneous pen (Lantus Solostar U-100 Insulin) Allergies Allergy/AdvReac Type Severity Reaction Status Date / Time sulfamethoxazole (From Allergy Mild Rash Verified 10/05/24 02:51 Bactrim) trimethoprim (From Bactrim) Allergy Mild Rash Verified 10/05/24 02:51 Review of Systems Review of Systems: All systems reviewed & are unremarkable except as noted in HPI and below PMFSH Past Medical History Medical History Cerumen impaction Dermatitis Cellulitis of arm, left Thoracic aortic aneurysm (TAA) Pulmonary embolism (07/09/23) Constipation Colon cancer screening Dysphagia History of esophageal dilatation Bladder cancer Hematuria Insulin dependent diabetes mellitus History of CVA (cerebrovascular accident) History of DVT (deep vein thrombosis) Long-term anticoagulation Pneumonia due to 2019 novel coronavirus Nephrolithiasis Obstructive sleep apnea Fever Essential hypertension Gastroesophageal reflux disease without esophagitis History of DVT in adulthood Hyperlipidemia Hypothyroidism Left carotid artery occlusion Type 2 diabetes mellitus without complication, without long-term current use of insulin Surgical History Surgical History Hx of laminectomy History of biopsy of bladder H/O lithotripsy History of knee replacement Partial right knee replacement History of cataract extraction Status post hip replacement Left side Status post placement of ureteral stent Right side Family History Family History Father Cancer Mother Cancer Grandparent Diabetes mellitus Social History Social History Social History: The patient lives with his sleeve in girlfriend. The patient quit smoking 40+ years ago. The patient has 2 children. His son is the durable power criminal defense attorney for healthcare. The patient is retired from [employer]. 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 Patient occasionally has a beer on the weekend. Maybe 3 or 4 beers a week. Patient denies any marijuana or illicit drugs. Smoking packs per day: 1.5 Smoking cigarettes per day: 30.0 Years smoked: 10 Smoking pack-years: 15.00 Smoking status: Former smoker Second hand tobacco smoke exposure: No Alcohol intake: current Drinks per week: 3 Alcohol use details: BEERS Substance use: never Substance use type: does not use Do You Feel Safe in your Home?: Yes Lack of Transportation: No Lack of Food: Never True Current Housing: I Have Housing Concerned About Future Housing: No Difficulty Paying Gas/Electric Bills: No Difficulty Paying for Meds: No Currently Unemployed: No Education: High School Diploma/GED Difficulty w/ Childcare or Family Care: No Living arrangements: alone Occupation/Education: retired Additional occupation/education comments: [employer]. Gender identity (if verbalized by the patient): Male Sexual Orientation (if Verbalized by the Patient): Straight or Heterosexual Spiritual care concerns: No Exam Narrative: APPEARANCE: Uncomfortable. HEAD: normocephalic, atraumatic. EYES: PERRLA/EOMI, conjunctivae clear. NOSE: Normal no drainage EARS:TMS clear with good light reflex. THROAT: Pharynx clear, no exudate. NECK: Supple. No adenopathy, no masses. RESPIRATORY: Airway patent, respirations nonlabored. Clear to auscultation bilaterally, no rales, rhonchi, wheezing. CARDIOVASCULAR: Regular rate and rhythm without murmurs rubs or gallops. ABDOMINAL: Soft, nontender, nondistended, normal bowel sounds MUSCULOSKELETAL: Moves all extremities. Strength/ROM intact, No edema, No calf tenderness. NEURO: Alert. Cranial nerves II through XII intact. Grossly intact SKIN: Warm, dry. Normal Color Course Vital Signs Vital signs: Vital Signs Temperature 97.9 F 10/05/24 03:01 Pulse Rate 86 10/05/24 03:01 Respiratory Rate 17 10/05/24 03:01 Blood Pressure 195/83 H 10/05/24 03:01 Pulse Oximetry 97 10/05/24 03:01 Oxygen Delivery Room Air 10/05/24 03:01 Temperature 97.9 F 10/05/24 03:01 Pulse Rate 76 10/05/24 06:26 Respiratory Rate 16 10/05/24 06:26 Blood Pressure 151/67 H 10/05/24 06:26 Pulse Oximetry 98 10/05/24 06:26 Oxygen Delivery Room Air 10/05/24 03:01 Medical Decision Making MDM Narrative Medical decision making narrative: 74-year-old male presenting to the emergency department for evaluation for urinary retention. Patient had greater than 700 mL of retained urine and patient was unable to urinate at all. Núñez catheter was placed. Patient had greater than 1 L output and does feel significantly improved. UA does show leukocyte esterase, high red blood cells and 21-50 white blood cells with trace bacteria. Urine culture was ordered. Patient was started on Keflex. Patient does follow-up with Dr. Worthy. Differential Diagnosis Differential Diagnosis: Urinary retention, urinary tract infection, hematuria, obstructive uropathy Vital Signs Vital Signs: Vital Signs Temperature 97.9 F 10/05/24 03:01 Pulse Rate 86 10/05/24 03:01 Respiratory Rate 17 10/05/24 03:01 Blood Pressure 195/83 H 10/05/24 03:01 Pulse Oximetry 97 10/05/24 03:01 Oxygen Delivery Room Air 10/05/24 03:01 Temperature 97.9 F 10/05/24 03:01 Pulse Rate 76 10/05/24 06:26 Respiratory Rate 16 10/05/24 06:26 Blood Pressure 151/67 H 10/05/24 06:26 Pulse Oximetry 98 10/05/24 06:26 Oxygen Delivery Room Air 10/05/24 03:01 Lab Data Lab results reviewed: Yes I reviewed the patient's lab results. Labs: Lab Results 10/05/24 Range/Units 05:22 Urine Color Yaz (Yellow) Urine Appearance Cloudy H (Clear) Urine pH 5.5 (5.0-9.0) Ur Specific [facility] 1.014 (1.001-1.035) Urine Protein 3+ H (Negative) mg/dL Urine Glucose (UA) 1+ H (Negative) mg/dL Urine Ketones Negative (Negative) mg/dL Ur Blood (Man) 3+ H (Negative) Urine Nitrate Negative (Negative) Urine Bilirubin Negative (Negative) Urine Urobilinogen 0.2 (<2.0) mg/dL Leukocyte Esterase Rfl 1+ H (Negative) NEGRA/UL Urine RBC >100 H (0-2) /hpf Urine WBC 21-50 H (0-3) /hpf Ur Squamous Epith Cells None seen (Few) /hpf Urine Bacteria Trace /hpf Urine Casts 0-2 Discharge Plan Discharge Clinical Impression: Acute urinary retention Patient Disposition: Home Condition: Stable Instructions: Antibiotic Form, Núñez Catheter Placement and Care (ED) Additional Instructions: Núñez catheter care as directed. Flomax as directed. Antibiotic as directed. Have close follow-up with Urology. If you have any worsening symptoms then please call or return to the emergency department. Patient Language: Russian Prescriptions: New tamsulosin [Flomax] 0.4 mg capsule 0.4 mg PO DAILY 14 Days Qty: 14 0RF cephalexin 500 mg capsule 500 mg PO Q12H 7 Days Qty: 14 0RF No Action levothyroxine 175 mcg tablet 175 mcg PO QAM metformin 500 mg tablet extended release 24hr 1,000 mg PO BID insulin lispro [Humalog KwikPen Insulin] 100 unit/mL insulin pen See Rx Instructions .ROUTE .COMPLEX Patient Comments: based on carb intake Rx Instructions: on sliding scale TID mecobalamin (vitamin B12) 1,000 mcg tablet,disintegrating 1,000 mcg sublingual QAM Rx Instructions: place tablet under tongue and allow to dissolve for at least30 secs before swallowing omeprazole 20 mg capsule,delayed release(DR/EC) 20 mg PO DAILY semaglutide 1 mg/dose (4 mg/3 mL) pen injector 1.5 mg subcut WEEKLY Patient Comments: hold prior to bladder surgery 09/14/24 Rx Instructions: WEDNESDAYS qi-mbqb-fvwcu-lycopene-ginkgo 400-600-120 mcg-mcg-mg Tablet 1 tablet PO DAILY insulin glargine [Lantus Solostar U-100 Insulin] 100 unit/mL (3 mL) insulin pen 45 unit subcut .COMPLEX Rx Instructions: 45 units subcutaneously in AM and 85 units subcutaneously in PM atenolol 50 mg tablet 50 mg PO QAM Qty: 90 1RF Patient Comments: . Rx Instructions: TAKE 1 TABLET BY MOUTH DAILY fenofibrate micronized 200 mg capsule See Rx Instructions .ROUTE .COMPLEX Qty: 90 0RF Dose Instruction: TAKE 1 CAPSULE(200MG) BY MOUTH DAILY Rx Instructions: TAKE 1 CAPSULE(200MG) BY MOUTH DAILY celecoxib 200 mg capsule 200 mg PO BID Qty: 200 3RF Patient Comments: . rosuvastatin 10 mg tablet 10 mg PO HS Qty: 90 0RF gabapentin 300 mg capsule 300 mg PO BID Qty: 60 4RF tramadol 50 mg tablet 50 mg PO Q6H PRN (Reason: pain) Qty: 120 0RF Eliquis 5 mg tablet 5 mg PO BID Qty: 180 0RF Patient Comments: HOld for 48 hr prior to 09/14/24. aspirin 81 mg tablet,delayed release (DR/EC) 81 mg PO QAM Qty: 30 3RF Patient Comments: hold for 48 hours prior to 09/14/24 Follow-up/Referrals: Larry Morel MD [Primary Care Provider] - Rell Worthy MD [Physician] -
--- OUTSIDE RECORDS SUMMARY | 2024-10-05 04:48 | XMS_ITS | Encounter Summary ---
Author Organization [facility] [employer] Address [address] [place] [address] Care Team Providers Care Tractor Trailer Driver Name Role Phone Pantera Bolivar MD Primary Care Provider [phone] Encounter Details Date Type Department Care Team (Late Contact Info) Description 10/02/[address] 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 Oncology [facility] [address] [place] [address] Mikael Gomes MD [address] [place] [address] [employer] [address] [place] [address] documented as of this encounter Visit Diagnoses Diagnosis Carcinoma in situ of bladder documented in this encounter Care Teams Tractor Trailer Driver Relationship Specialty Start Date End Date Pantera Bolivar MD [address] [place] [address] PCP - General 05/02/15 documented as of this encounter
--- OUTSIDE RECORDS SUMMARY | 2024-10-05 04:48 | XMS_ITS | Continuity of Care Document ---
Author Organization [employer] [facility] Address [address] [place] [address] Phone Care Team Providers Care Flight Kitchen Manager Name Role Phone Moser OD, Oswaldo Unavailable Unavailable Procedures Procedure Date Eye Exam & Treatment Refraction Eye Exam & Treatment Refraction Eye Exam & Treatment Office/outpatient Visit, Est Office/outpatient Visit, Est Frames Deluxe WorkVoices - Medical No Charge Glasses Check Progressive Lens, Plastic WorkVoices - Medical Post-op Follow-up Visit Refraction Remove [...] Diagnoses Date Provider Providers Copied on Encounter [employer] [facility], [address], [place], [place], [address], [place] tel:[phone] [facility] No Information Sep-0 9-201 0 Moser OD Oswaldo. [address] , [address], [place], [place], [facility], . tel:[phone] Referring Provider: Pantera Bolivar MD, [address] [facility] [address], [place], [address]. tel:[phone] [facility], [address] [place] [address] [address], [place], [place], [address], tel:[phone] [facility] No Information 2 1-200 9 Moser OD Oswaldo. [address] [facility] , [address], [place], [place], [facility], . tel:[phone] Referring Provider: Pantera Bolivar MD, [address] [facility] [address], [place], [address]. tel:[phone] [facility], [address] [place] [address] [address], [place], [place], [address], [place] tel:[phone] [facility] No Information 4-200 8 Moser OD Oswaldo. [address] , [address], [place], [place], [facility], . tel:[phone] Office/outpat ient Visit, [facility], [address] [place] [address] [address], [place], [place], [address], [place] tel:[phone] [facility] No Information 2 1-200 8 Moser OD Oswaldo. [address] , [address], [place], [place], [facility], . tel:[phone] Office/outpat ient Visit, [facility], [address] [place] [address] [address], [place], [place], [address], [place] tel:[phone] [facility] No Information 4-200 8 Moser OD Oswaldo. [address] , [address], [place], [address], [place]. tel:[phone] [facility], [address], [place], [place], [address], [place] tel:[phone] [facility] No Information Nov-2 7-200 7 [employer] . [address] [facility], [address], [place], [place], [address], [place]. tel:[phone] Consulting Provider: Uzma Larsen, [address] [place] [address], [facility]. tel:[phone] [facility], [address], [place], [place], [address], [place] tel:[phone] [facility] No Information Nov-0 1-200 7 Moser OD Oswaldo. [address] [facility] [address], [address], [place], [facility], [place]. tel:[phone] [facility], [address], [place], [place], [address], [place] tel:[phone] [facility] No Information Oct-0 9-200 7 [employer] . [address] [facility], [address], [place], [place], [address], [place]. tel:[phone] Referring Provider: Sherwin Rubi, [address] [place], [place] [address]ate [address], [place], [place], [facility]. tel:[phone] lting Provider: Uzma Larsen, [address] [place] [address], [address]. tel:[phone] [facility], [address], [place], [place], [address], [place] tel:[phone] [facility] No Information Oct-0 5-200 7 Lucio Courtney. [facility] [address], [address], [place], [facility], [place]. tel:[phone] [facility], [address], [place], [place], [address], [place] tel:[phone] [facility] No Information Sep-2 1-200 7 Doisy Edward. [address] , [address], [place], [facility], . tel:[phone] [facility], [address] [place] [address] [address], [place], [place], [address], [place] tel:[phone] [facility] No Information Sep-2 1-200 7 Doisy Edward. [address] , [address], [place], [facility], [place]. tel:[phone] [facility], [address], [place], [place], [address], [place] tel:[phone] [facility] No Information Sep-1 9-200 7 Doisy Edward. [address] , [address], [place], [facility], [place]. tel:[phone] Referring Provider: Oswaldo Rubi, [facility] [address], [place], [facility]. tel:[phone] [facility], [address], [place], [place], [address], [place] tel:[phone] [facility] No Information Sep-1 2-200 7 Doisy Edward. [address] , [address], [place], [facility], [place]. tel:[phone] [facility], [address], [place], [place], [address], [place] tel:[phone] [facility] No Information Sep-1 1-200 7 Doisy Edward. [address] , [address], [place], [facility], [place]. tel:[phone] Referring Provider: Oswaldo Moser OD A, [address], [place], [address]. tel:[phone] Office/outpat ient Visit, [facility], [address], [place], [place], [address], [place] tel:[phone] [facility] No Information Sep-0 5-200 7 Lucio Courtney. [address] , [address], [place], [facility], [place]. tel:[phone] Referring Provider: Sherwin Rubi, [address], [place], [facility]. tel:[phone] [facility], [address] [place] [address] [address], [place], [place], [address], [place] tel:[phone] [facility] No Information Aug-2 3-200 7 Moser OD Oswaldo. [address] [facility] , [address], [place], [facility], [place]. tel:[phone] Referring Provider: Pantera Bolivar MD, [address] [facility] [address], [place], [address]. tel:[phone] Office/outpat ient Visit, [facility], [address] [place] [address] [address], [place], [place], [address], [place] tel:[phone] [facility] No Information Apr-0 2-200 7 Wanjonathan Levy. [address] [facility], [address], [place], [place], [address], [place]. tel:[phone] [facility], [address] [place] [address] [address], [place], [place], [address], [place] tel:[phone] [facility] No Information Jay-0 9-200 7 Moser OD Oswaldo. [address] [facility] [address], [address], [place], [address], [place]. tel:[phone] Family History Family Member Type Diagnosis Age [...]
--- OUTSIDE RECORDS SUMMARY | 2024-10-05 04:48 | XMS_ITS | Encounter Summary ---
Author Organization [facility] Address [address] [place] [address] Care Team Providers Care Security Services Specialist Name Role Phone Larry Morel MD Primary Care Provider [phone] Noam Horn MD Unavailable [phone] Hao Perez MD Unavailable [phone] Reason for Visit * Auth/Cert (Routine) Specialty Diagnoses / Procedures Referred By Ayesha rollins Referred To Contact Diagnoses Gross hematuria Gross hematuria [R31.0] Procedures GA CYSTO W/REMOVAL OF LESIONS SMALL GA CYSTOURETHROSCOPY WITH BIOPSY Cystoscopy, Fulguration of Bladder Possible Bladder Biopsy Referral ID Status Reason Start Date Expiration Date Visits Re quested Visits Authorized [id number] 1 1 Encounter Details Date Type Department Care Team (Late st Contact Info) Description 10/04/2024 1:29 PM CDT Anesthesia Event [facility] Operating Room [address] [place] [address] Tonny Stafford DO [address] [place] [address] Janae Campo CRNA [address] [place] [address] Anesthesia Record Procedure Summary Procedure [...] on file 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 Procedure Summary Date: 10/04/24 Room / Location: [facility] / [facility] OPERATING ROOM Anesthesia Start: 1329 Anesthesia Stop: [...] Supervising provider: Tonny Stafford DO Placed by: MANAGER OF PROCUREMENT: Janae Campo CRNA Emergent airway documentation: Risks and benefits discussed: yes Consent obtained: yes Consent given by: patient Airway prep: Preoxygenated: yes Patient position: sniffing Mask difficulty assessment: 0 - not attempted Sedation level during airway: GA Final airway details: Final airway type: supraglottic airway Final supraglottic airway: [place] SGA size: 5 Number of attempts: 1 [...] was seen by heme/onc Dr Alonzo Samuel [facility] for Factor V leiden deficiency) [...] Component Value Units Date/Time ECG 12 lead [[id number]] Collected: 08/04/241836 Order Status: Completed Updated: 08/05/24 3588 Narrative: Vent Rate: 68 bpm RR Interval: 875 msec GA Interval: 194 msec QRS Duration: 96 msec QT Interval: 380 msec QTC Interval: 397 msec P-R-T [place]: -8 - -21 - 16 degrees IMPRESSION: SINUS RHYTHM BORDERLINE LEFT AXIS DEVIATION LOW QRS VOLTAGE IN PRECORDIAL LEADS BORDERLINE ECG Electronically Signed By: Kevin Winter [facility] Card CTA Stroke head and neck 07/2024: No CT evidence of stroke. No acute intracranial abnormality. 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 ECHO 07/2024: 1. [...] Medication protocol when under care of a MANAGER OF PROCUREMENT Planned anesthesia: General Team communication plan: LMA Induction: Induction: intravenous. Postoperative Plan: No postoperative mechanical ventilation intended. Patient's planned disposition post procedure is Outpatient. Informed Consent: Discussed plan with MANAGER OF PROCUREMENT. Anesthesia plan and risks discussed with patient. [...] Procedure Name Priority Date/Time Associated Diagnosis Comments GA AN PROCEDURE PLACEHOLDER Routine 10/04/2024 1:40 PM CDT GA AN ELECTIVE SUPRAGLOTTIC AIRWAY Routine 10/04/2024 1:40 PM CDT documented in this encounter Results * GA AN ELECTIVE SUPRAGLOTTIC AIRWAY, GA AN PROCEDURE PLACEHOLDER (10/04/2024 1:40 PM CDT) Narrative Janae Campo CRNA - 10/04/2024 1:40 PM CDT Janae Campo CRNA 10/04/2024 1:41 PM Airway Patient location: OR Urgency: elective Indications for airway management: anesthesia Difficult airway: no Staff: Supervising provider: Tonny Stafford DO Placed by: MANAGER OF PROCUREMENT: Janae Campo CRNA Emergent airway documentation: Risks and benefits discussed: yes Consent obtained: yes Consent given by: patient Airway prep: Preoxygenated: yes Patient position: sniffing Mask difficulty assessment: 0 - not attempted Sedation level during airway: GA Final airway details: Final airway type: supraglottic airway Final supraglottic airway: [place] SGA size: 5 Number of attempts: 1 [...] mg documented in this encounter Care Teams Security Services Specialist Relationship Specialty Start Date End Date Larry Morel MD PCP - General Family Medicine 12/05/19 Noam Horn MD [address] [place] [address] Referring Physician Endocrinology Diabetes & Metabolism 07/29/20 Hao Perez MD [address] [place] [address] Referring Physician Ophthalmology 07/29/20 documented as of this encounter
--- OUTSIDE RECORDS SUMMARY | 2024-10-05 04:48 | XMS_ITS | Encounter Summary ---
Author Organization [facility] Address [address] [place] [address] Care Team Providers Care Chemical Laboratory Assistant Name Role Phone Pantera Bolivar MD Primary Care Provider [phone] Encounter Details Date Type Department Care Team (Late st Contact Info) Description 09/14/2000 Outpatient [facility] [address] [facility] 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 Gender Identity Male 09/13/2024 10:33 AM CDT Sexual Orientation Straight 09/13/2024 10 :33 AM CDT documented as of this encounter Plan of Treatment Upcoming Encounters Date Type Department Care Team (Late st Contact Info) Description 10/24/2024 9:30 AM CDT Office Visit [facility] Oncology and Hematology - [place] [address] [facility] [address] [place] [address] Mikael Gomes MD [address] [facility] [address] [place] [address] documented as of this encounter Visit Diagnoses Not on filedocumented in this encounter Care Teams Chemical Laboratory Assistant Relationship Specialty Start Date End Date Pantera Bolivar MD [address] [place] [address] [address] [place] [address] PCP - General 05/02/15 documented as of this encounter
--- OUTSIDE RECORDS SUMMARY | 2024-10-05 04:48 | XMS_ITS | Clinical Summary ---
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 Orders Only [facility] Oncology and Hematology [facility] [address] [place] [address] Mikael Gomes MD Benign hypertension 09/18/2024 Orders Only [facility] Oncology and Hematology [facility] [address] [place] [address] Mikael Gomes MD Carcinoma in situ of bladder 09/13/2024 Orders Only [facility] Oncology and Hematology - [place] [address] [place] [address] Mikael Gomes MD 09/12/2024 10:00 AM CDT Office Visit [facility] Oncology and Hematology [facility] [address] [place] [address] Remedios Vickers MD Chronic anemia (Primary Dx); Carcinoma in situ of bladder 09/12/2024 Orders Only [facility] Oncology and Hematology [facility] [address] Mikael Gomes MD 09/11/2024 Orders Only [facility] Oncology and Hematology - [place] [address] Mikael Gomes MD Benign hypertension 09/04/2024 Orders Only [facility] Oncology and Hematology - [place] [address] Mikael Gomes MD Carcinoma in situ of bladder 08/29/2024 External Device Data STL ABSTRACTION Provider, Abstract 08/28/2024 Orders Only [facility] Oncology and Hematology - [place] [address] Mikael Gomes MD Benign hypertension 08/22/2024 External Device Data STL ABSTRACTION Provider, Abstract 08/22/2024 Orders Only [facility] Oncology and Hematology - [place] [address] Mikael Gomes MD 08/21/2024 Orders Only [facility] Oncology and Hematology - [place] [address] Mikael Gomes MD Carcinoma in situ of bladder 08/14/2024 Orders Only [facility] Oncology and Hematology - [place] [address] [place] [address] Mikael Gomes MD Benign hypertension 08/07/2024 Orders Only [facility] Oncology and Hematology - [place] [address] [place] [address] Mikael Gomes MD Carcinoma in situ of bladder 08/02/2024 External Device Data STL ABSTRACTION Provider, Abstract 08/01/2024 11:15 AM CDT Office Visit [facility] Oncology and Hematology - [place] [address] [place] [address] Mikael Gomes MD Carcinoma in situ of bladder (Primary Dx) 08/01/2024 Orders Only [facility] Oncology and Hematology - [place] [address] [place] [address] Mikael Gomes MD Benign hypertension (Primary Dx) 07/25/2024 Orders Only [facility] Oncology and Hematology - [place] [address] [place] [address] Mikael Gomes MD 07/24/2024 External Device Data STL ABSTRACTION Provider, Abstract 07/24/2024 Orders Only [facility] Oncology and Hematology - [place] [address] [place] [address] Mikael Gomes MD Carcinoma in situ of bladder 07/12/2024 Abstract [facility] Oncology and Hematology - [place] [address] [place] [address] Mikael Gomes MD 07/11/2024 9:30 AM CLINICAL LABORATORY SCIENCE PROFESSOR Office Visit [facility] Oncology and Hematology - [place] [address] [place] [address] Mikael Gomes MD Carcinoma in situ of bladder (Primary Dx) 07/11/2024 External Device Data STL ABSTRACTION Provider, Abstract 07/10/2024 Orders Only [facility] Oncology and Hematology - [place] [address] [place] [address] Mikael Gomes MD Carcinoma in situ of [...] on file Legal Sex Male 3:22 AM CLINICAL LABORATORY SCIENCE PROFESSOR Gender Identity Male 09/13/2024 10:33 AM CDT [...] Description 10/24/2024 9:30 AM CDT Office Visit [facility] Oncology and Hematology - [place] [address] [facility] [address] [place] [address] Mikael Gomes MD [address] [facility] [address] [place] [address] Health Maintenance Due Date Last [...] BASIC METABOLIC PANEL Routine 07/11/2024 4:23 PM CLINICAL LABORATORY SCIENCE PROFESSOR COMPREHENSIVE METABOLIC PANEL Routine 07/11/2024 4:15 PM CLINICAL LABORATORY SCIENCE PROFESSOR CBC WITH DIFFERENTIAL Routine 07/11/2024 2:25 PM CLINICAL LABORATORY SCIENCE PROFESSOR from Last 3 Months Results * CBC [...] * CBC WITH DIFFERENTIAL (07/11/2024 2:25 PM CLINICAL LABORATORY SCIENCE PROFESSOR) Blood us Mikael Gomes MD HEMATOLOGY ORDERABLES Final Res ult from Last 3 Months Insurance MEDICARE PART A AND B BCBS SUPP Care Teams Valver Relationship Specialty Start Date End Date Pantera Bolivar MD [address] [place] [phone] PCP - General 05/02/15
--- OUTSIDE RECORDS SUMMARY | 2024-10-05 04:48 | XMS_ITS | Encounter Summary ---
Author Organization [facility] Address 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 Gender Identity Male 09/13/2024 10:33 AM CDT Sexual Orientation Straight 09/13/2024 10 :33 AM CDT documented as of this encounter Plan of Treatment Upcoming Encounters Date Type Department Care Team (Late st Contact Info) Description 10/24/2024 9:30 AM CDT Office Visit [facility] Oncology and Hematology - [place] [address] [place] [address] [address] [place] [address] Mikael Gomes MD [address] [facility] [address] [place] [address] documented as of this encounter Visit Diagnoses Not on filedocumented in this encounter Care Teams Technical Sales Associate Relationship Specialty Start Date End Date Pantera Bolivar MD [address] [place] [address] [address] [place] [address] PCP - General 05/02/15 documented as of this encounter
--- OUTSIDE RECORDS SUMMARY | 2024-10-05 04:48 | XMS_ITS | Encounter Summary ---
Author Organization [facility] Address 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 Gender Identity Male 09/13/2024 10:33 AM CDT Sexual Orientation Straight 09/13/2024 10 :33 AM CDT documented as of this encounter Plan of Treatment Upcoming Encounters Date Type Department Care Team (Late st Contact Info) Description 10/24/2024 9:30 AM CDT Office Visit [facility] Oncology and Hematology - [place] [address] [place] [address] [facility] [address] [place] [address] Mikael Gomes MD [address] [facility] [address] [place] [address] documented as of this encounter Procedures Procedure Name Priority Date/Time Associated Diagnosis Comments MRI LUMBAR W WO CONTRAST Timed Study 09/20/2007 9:13 AM CDT documented in this encounter Results * MRI LUMBAR W WO CONTRAST (09/20/2007 9:13 AM CDT) Anatomical Region Laterality Modality Spine Other 09/20/2007 9:13 AM CDT Narrative 09/20/2007 12:10 PM CDT [facility] [address] [facility] [address] [place], [place] [address] Admit Date: 09/20/2007 GIL PÉREZ Sex: M Admit Prov: ANICETO RAMIREZ Date: 1950 Primary Care Prov: REBEKAH WOODS CMRN: [id number] Room: [facility] SSN: [id number] IMAGING SERVICES Ordering Prov: N/A Accession Number: [id number] Interpretation MRI LUMBAR SPINE WITHOUT AND WITH [...] 11:11 Procedure Note Cee Pruett - 09/20/2007 [facility] [address] [place], [place] [address] Admit Date: 09/20/2007 BETO GIL J Sex: M Admit Prov: ANICETO RAMIREZ Date:1950 Primary Care Prov: REBEKAH WOODS CMRN: [id number] Room: MRI-A SSN: [id number] IMAGING SERVICES Ordering Prov: N/A Interpretation MRI LUMBAR SPINE WITHOUT AND WITH IV CONTRAST 09/20/07 History: Bilateral leg pain and numbness, prior L5-S1 surgery [id number]. Lumbar sequences were performed, but are somewhat [...] unspecified documented in this encounter Care Teams Supervisor Cloth Winding Relationship Specialty Start Date End Date Rebekah Woods MD [address] [place] [address] [address] [place] [address] PCP - General 05/02/15 documented as of this encounter
--- OUTSIDE RECORDS SUMMARY | 2024-10-05 04:48 | XMS_ITS | Encounter Summary ---
Author Organization [facility] Address 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 Gender Identity Male 09/13/2024 10:33 AM CDT Sexual Orientation Straight 09/13/2024 10 :33 AM CDT documented as of this encounter Plan of Treatment Upcoming Encounters Date Type Department Care Team (Late st Contact Info) Description 10/24/2024 9:30 AM CDT Office Visit [facility] Oncology and Hematology - [place] [address] [place] [address] [address] [place] [address] Mikael Gomes MD [address] [facility] [address] [place] [address] documented as of this encounter Visit Diagnoses Not on filedocumented in this encounter Care Teams Yard Switcher Relationship Specialty Start Date End Date Pantera Bolivar MD [address] [place] [address] [address] [place] [address] PCP - General 05/02/15 documented as of this encounter
--- OUTSIDE RECORDS SUMMARY | 2024-10-05 04:48 | XMS_ITS | Encounter Summary ---
Author Organization [facility] Address 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 Gender Identity Male 09/13/2024 10:33 AM CDT Sexual Orientation Straight 09/13/2024 10 :33 AM CDT documented as of this encounter Plan of Treatment Upcoming Encounters Date Type Department Care Team (Late st Contact Info) Description 10/24/2024 9:30 AM CDT Office Visit [facility] Oncology and Hematology - [place] [address] [facility] [address] [place] [address] Mikael Gomes MD [address] [facility] [address] [place] [address] documented as of this encounter [...] FLUIDS AND STOOLS Edited Performing Organization Address [facility] de Phone Number INTERFACE SYSTEM Refer to clinic/hospital department * (ABNORMAL) GLUCOSE, CSF (08/31/2006 10:25 AM CDT) GLUCOSE, CSF 95(H) 40 - 70 mg/dL INTERFACE SYSTEM 08/31/2006 10:2 5 AM CDT Cornelius Orlando MD BODY FLUIDS AND STOOLS Edited Performing Organization Address [facility] de Phone Number INTERFACE SYSTEM Refer to [...] FLUIDS AND STOOLS Edited Performing Organization Address [facility] Phone Number INTERFACE SYSTEM Refer to clinic/hospital department documented in this encounter Visit Diagnoses Diagnosis Spinal stenosis, lumbar region, without neurogenic claudication- Primary documented in this encounter Care Teams In Flight Crew Member Relationship Specialty Start Date End Date Pantera Bolivar MD [address] [place] [address] PCP - General 05/02/15 documented as of this encounter
--- OUTSIDE RECORDS SUMMARY | 2024-10-05 04:48 | XMS_ITS | Clinical Summary ---
Author Organization [facility] Address [address] [place] [address] Phone Care Team Providers Care Handyperson Name Role Phone Larry Morel MD Primary Care Provider [phone] Allergies No known active allergies Medications atenolol [...] solution pen-injector 06/09/2021 Active [employer] 5-Bevel Pen [place] 31G X 8 MM misc USE FIVE [...] on file Legal Sex Male 8:47 AM [facility] Gender Identity Not on file Sexual [...] Influenza Vaccine (Season Ended) 2025 Insurance MEDICARE [facility] [employer] Care Teams Handyperson Relationship Specialty Start Date End Date Larry Morel MD [address] [place] [address] PCP - General Family Medicine 04/28/21
--- OUTSIDE RECORDS SUMMARY | 2024-10-05 04:48 | XMS_ITS | Encounter Summary ---
Author Organization [facility] Address 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 Gender Identity Male 09/13/2024 10:33 AM CDT Sexual Orientation Straight 09/13/2024 10 :33 AM CDT documented as of this encounter Plan of Treatment Upcoming Encounters Date Type Department Care Team (Late st Contact Info) Description 10/24/2024 9:30 AM CDT Office Visit [facility] Oncology and Hematology - [place] [address] [place] [address] [facility] [address] [place] [address] Mikael Gomes MD [address] [facility] [address] [place] [address] documented as of this encounter Procedures Procedure Name Priority Date/Time Associated Diagnosis Comments POC CREATININE Routine 09/02/2007 7:18 AM CDT documented in this encounter Results * POC CREATININE (09/02/2007 7:18 AM CDT) CREATININE POC 1.0 0.6 - 1.3 mg/dL [facility] Capillary blood specimen (specimen) 09/02/2007 7:18 AM CDT 09/02/2007 7:18 AM CDT us Aniceto Ramirez DO POINT OF CARE TESTING Final R esult [facility] [address] [place] [address] documented in this encounter Visit Diagnoses Diagnosis Backache, unspecified documented in this encounter Care Teams Roller Coaster Operator Relationship Specialty Start Date End Date Pantera Bolivar MD [address] [place] [address] [address] [place] [address] PCP - General 05/02/15 documented as of this encounter
--- OUTSIDE RECORDS SUMMARY | 2024-10-05 04:48 | XMS_ITS | Encounter Summary ---
Author Organization [facility] Address [address] [place] [address] Care Team Providers Care Airline Reservation Agent Name Role Phone Larry Morel MD Primary Care Provider [phone] Noam Horn MD Unavailable [phone] Hao Perez MD Unavailable [phone] Reason for Visit * Auth/Cert (Routine) Specialty Diagnoses / Procedures Referred By Contivy t Referred To Contact Diagnoses Gross hematuria Gross hematuria [R31.0] Procedures KS CYSTO W/REMOVAL OF LESIONS SMALL KS CYSTOURETHROSCOPY WITH BIOPSY Cystoscopy, Fulguration of Bladder Possible Bladder Biopsy Referral ID Status Reason Start Date Expiration Date Visits Re quested Visits Authorized [id number] 1 1 Encounter Details Date Type Department Care Team (Late st Contact Info) Description 10/04/2024 12:30 PM CDT - 10/04/2024 1:45 PM CDT Surgery [facility] Operating Room [address] [place] [id number] [place] [address] [place] [address] Cystoscopy Surgery Details Date/Time Status Location OR Service Patient Class Case Cl ass Case Type Trauma Case? 10/04/2024 12:30 PM Posted 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 * Anxiolysis in Adults (AfterCare(R) Instructions(ER/ED)) (Azerbaijani) documented in this encounter Medications at Time [...] 182 70 - 199 mg/dL POC Performer [id number] Assessment Principal Problem: Gross hematuria Plan Cystoscopy [...] speak to his primary care doctor and clinical analyst about the need for continued anticoagulation. documented [...] received Ancef for antibiotic prophylaxis. A 22 Vietnamese cystoscope was advanced through the urethra into [...] be considered if clinically indicated. POC Performer [id number] [facility] Blood 10/04/2024 2:19 PM CDT 10/04/2024 2:19 PM CDT Rell Worthy MD LAB POCT ORDERABLES - DEVICE F inal Result Performing Organization Address [facility] Co de Phone Number [facility] [address] [place] [address] * POCT glucose (10/04/2024 11:08 AM CDT) [facility] Signature Glucose, POC 182 70 - 199 mg/dL Comment: For Glucose values <35 mg/dl when Hematocrit is >60 mg/dl,the test may not accurately detect significant hypoglycemia,and testing in the Laboratory should be considered if clinically indicated. POC Performer [id number] [facility] Blood 10/04/2024 11:0 8 AM CDT 10/04/2024 11:08 AM CDT Rell Worthy MD LAB POCT ORDERABLES - DEVICE F inal Result Performing Organization Address [facility] de Phone Number [facility] [address] [place] [address] documented in this encounter Visit Diagnoses Diagnosis [...] Call MD for each episode of hypoglycemia. WET PROCESS ASSISTANT HEAD MILLER STATES GLUTOSE-15 CONTAINS GLUCOSE 40% W/W (50% [...] Call MD for each episode of hypoglycemia. WET PROCESS ASSISTANT HEAD MILLER STATES GLUTOSE-15 CONTAINS GLUCOSE 40% W/W (50% [...] Call MD for each episode of hypoglycemia. WET PROCESS ASSISTANT HEAD MILLER STATES GLUTOSE-15 CONTAINS GLUCOSE 40% W/W (50% [...] 10/04/2024 documented in this encounter Care Teams Airline Reservation Agent Relationship Specialty Start Date End Date Larry Morel MD PCP - General Family Medicine 12/05/19 Noam Horn MD [address] [place] [address] Referring Physician Endocrinology Diabetes & Metabolism 07/29/20 Hao Perez MD [address] [place] [address] Referring Physician Ophthalmology 07/29/20 documented as of this encounter
--- OUTSIDE RECORDS SUMMARY | 2024-10-05 04:48 | XMS_ITS | Referral Summary ---
Author Organization [facility] Address [address] [place] [address] Care Team Providers Care Riprap Man Name Role Phone Larry Morel MD Primary Care Provider [phone] Noam Horn MD Unavailable [phone] Hao Perez MD Unavailable [phone] Encounters Date Type Department Care Team Description 10/04/2024 12:30 PM CDT - 10/04/2024 1:45 PM CDT Surgery [facility] Operating Room [address] [place] [phone] Rell Worthy MD Cystoscopy 10/04/2024 1:29 PM CDT Anesthesia Event [facility] Operating Room [address] [place] [phone] Tonny Stafford DO Eubanks, [place], MANA 10/04/2024 10:19 AM CDT - 10/04/2024 4:10 PM CDT Hospital Encounter [facility] Operating Room [address] [place] [phone] Rell Worthy MD Gross hematuria Discharge Disposition: Discharge to home or self care 10/03/2024 12:00 PM CDT Pre-Admission Testing [facility] Pre Anesthesia Testing [address] [place] [phone] 10/02/2024 Telephone [facility] Pre Anesthesia Testing [address] [place] [address] Marium Morse 08/29/2024 9:20 AM CDT Office Visit 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 07/29/2020 Overview (07/29/2020): Added automatically from request for surgery [id number] Immunizations Immunization Administration Dates Next Due Influenza, [...] file 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 Gender Identity Not on file Sexual Orientation [...] on file Medical Devices Implanted Type Area Docking Pilot Device Identifier Shelf Expiration Date Model / Serial / Lot [employer] Ar-8978-Cp Internalbrace Kit Hand Wrist Set Implant Ligament Augmentation - [id number] Implanted:Qty: 1 on 08/14/2020 by Issa Montana MD at [facility] Right: Thumb [employer] [id number] 06/16/2025 AR-8978-C P / / [id number] [employer] Mcp-50 Mcp 50 Joint Finger Silicone Ii Sterile Latex Free - [id number] Implanted:Qty: 1 on 08/14/2020 by Issa Montana MD at [facility] Right: Index Finger Canal [facility] [id number] 01/14/2023 MCP-50 / / [id number] Procedures Procedure Name Priority Date/Time Associated Diagnosis Comments POCT GLUCOSE DEVICE Routine 10/04/2024 2 :19 PM CDT HI AN PROCEDURE PLACEHOLDER Routine 10/04/2024 1:40 PM CDT HI AN ELECTIVE SUPRAGLOTTIC AIRWAY Routine 10/04/2024 1:40 PM CDT BIOPSY BLADDER - CYSTOSCOPY 10/04/2024 1:30 PM CDT Gross hematuria CYSTOSCOPY CLOT EVACUATION 10/04/2024 1:30 PM CDT Gross hematuria POCT GLUCOSE DEVICE Routine 10/04/2024 11:08 AM CDT HI ARTHROCENTESIS ASPIR&/INJ SMALL JT/BURSA W/O US Routine 08/29/2024 9:20 AM CDT Arthritis, degenerative, localized, primary, hand, left HI ARTHROCENTESIS ASPIR&/INJ SMALL JT/BURSA W/O US [...] * POCT glucose (10/04/2024 2:19 PM CDT) [facility] Glucose, POC 127 70 - 199 mg/dL Comment: For Glucose values <35 mg/dl when Hematocrit is >60 mg/dl,the test may not accurately detect significant hypoglycemia,and testing in the Laboratory should be considered if clinically indicated. POC Performer [id number] [facility] Blood 10/04/2024 2:19 PM CDT 10/04/2024 2:19 PM CDT Rell Worthy MD LAB POCT ORDERABLES - DEVICE F inal Result [facility] [address] Department [place] [address] * HI AN ELECTIVE SUPRAGLOTTIC AIRWAY, HI AN PROCEDURE PLACEHOLDER (10/04/2024 1:40 PM CDT) Narrative Janae Campo CRNA - 10/04/2024 1:40 PM CDT Janae Campo CRNA 10/04/2024 1:41 PM Airway Patient location: OR Urgency: elective Indications for airway management: anesthesia Difficult airway: no Staff: Supervising provider: Tonny Stafford DO Placed by: NET TRAINER: Janae Campo CRNA Emergent airway documentation: Risks and benefits discussed: yes Consent obtained: yes Consent given by: patient Airway prep: Preoxygenated: yes Patient position: sniffing Mask difficulty assessment: 0 - not attempted Sedation level during airway: GA Final airway details: Final airway type: supraglottic airway Final supraglottic airway: [place] SGA size: 5 Number of attempts: 1 [...] be considered if clinically indicated. POC Performer [id number] [facility] Blood 10/04/2024 11:0 8 AM CDT 10/04/2024 11:08 AM CDT us Rell Worthy MD LAB POCT ORDERABLES - DEVICE F inal Result [facility] [address] Department [place] [address] * HI ARTHROCENTESIS ASPIR&/INJ SMALL JT/BURSA W/O US (08/29/2024 [...] HI ARTHROCENTESIS ASPIR&/INJ SMALL JT/BURSA W/O US (08/29/2024 [...] PM CDT Narrative 09/07/2024 12:30 PM CDT [id number] [place] [address] CARDIAC EVENT MONITOR REPORT Patient Name: ROSCOE SUTHERLAND J : 1950 (74y 5m) Gender: M Study Date: 09/04/2024 11:59:00 PM Ht(Inch): Wt(Lb): BSA: Tech: Location: [address] Order Provider: GURDEEP HERRERA BMI: Ref [...] Procedure Note Reed Cohen MD - 09/07/2024 [id number] [place] [address] CARDIAC EVENT MONITOR REPORT Patient Name: ROSCOE SUTHERLAND J : 1950 (74y 5m) Gender: M Study Date: 09/04/2024 11:59:00 PM Ht(Inch): Wt(Lb): BSA: Tech: Location: [address] Order Provider: GURDEEP HERRERA BMI: Ref [...] * POCT glucose (08/06/2024 11:40 AM CDT) [facility] Signature Glucose, POC 150 70 - 199 mg/dL Comment: For Glucose values <35 mg/dl when Hematocrit is >60 mg/dl,the test may not accurately detect significant hypoglycemia,and testing in the Laboratory should be considered if clinically indicated. POC Performer [id number] [facility] Blood 08/06/2024 11:4 0 AM CDT 08/06/2024 11:40 AM CDT Marques Hull MD LAB POCT ORDERABLES - DEVICE Fin al Result [facility] [address] Department [place] [address] * POCT glucose (08/06/2024 7:50 AM CDT) [facility] Glucose, POC 161 70 - 199 mg/dL Comment: For Glucose values <35 mg/dl when Hematocrit is >60 mg/dl,the test may not accurately detect significant hypoglycemia,and testing in the Laboratory should be considered if clinically indicated. POC Performer [id number] [facility] Blood 08/06/2024 7:50 AM CDT 08/06/2024 7:50 AM CDT us Marques Hull MD LAB POCT ORDERABLES - DEVICE Fin al Result Performing Organization Address [facility] Co de Phone Number [facility] [address] Department [place] [address] * (ABNORMAL) Differential, auto (08/06/2024 7:33 AM CDT) [facility] Neutrophil abs 2.6 1.5 - 6.5 K/cumm Imm gran abs 0.0 0.0 - 0.1 K/cumm [facility] Lymphocyte abs 1.2 0.8 - 3.3 K/cumm [facility] Monocyte abs 0.6 0.2 - 0.8 K/cumm [facility] Eosinophil abs 0.7(H) 0.0 - 0.5 K/cumm [facility] Basophil abs 0.1 0.0 - 0.1 K/cumm [facility] Neutrophil pct 50.7 % [facility] Comment: Interpretive Data Percent cell count reference ranges are not reported, since discordance with absolute values may lead to misinterpretation of CBC data. Current Interpretive Data was last revised on 2017. Imm gran pct 0.4 % [facility] Comment: Interpretive Data Percent cell count reference ranges are not reported, since discordance with absolute values may lead to misinterpretation of CBC data. Current Interpretive Data was last revised on 2017. Lymphocyte pct 23.3 % [facility] Comment: Interpretive Data Percent cell count reference ranges are not reported, since discordance with absolute values may lead to misinterpretation of CBC data. Current Interpretive Data was last revised on 2017. Monocyte pct 11.2 % [facility] Comment: Interpretive Data Percent cell count reference ranges are not reported, since discordance with absolute values may lead to misinterpretation of CBC data. Current Interpretive Data was last revised on 2017. Eosinophil pct 13.2 % [facility] Comment: Interpretive Data Percent cell count reference ranges are not reported, since discordance with absolute values may lead to misinterpretation of CBC data. Current Interpretive Data was last revised on 2017. Basophil pct 1.2 % [facility] Comment: Interpretive Data Percent cell count reference ranges are not reported, since discordance with absolute values may lead to misinterpretation of CBC data. Current Interpretive Data was last revised on 2017. Blood 08/06/2024 7:33 AM CDT 08/06/2024 8:04 AM CDT us Gurdeep Herrera NP LAB BLOOD ORDERABLES Final Resu lt [facility] [address] Department [place] [address] * (ABNORMAL) CBC with auto differential (08/06/2024 7:33 AM CDT) WBC 5.2 3.8 - 9.9 K/cumm Hgb 15.2 13.0 - 17.5 g/dL [facility] Hct 47.4 38.9 - 50.3 % [facility] Plt 256 150 - 400 K/cumm [facility] MPV 11.3 9.1 - 12.3 fL [facility] RBC 4.78 4.30 - 5.80 M/cumm [facility] MCV 99.2(H) 81.3 - 96.4 fL [facility] MCH 31.8 27.1 - 33.3 pg [facility] MCHC 32.1(L) 32.3 - 35.7 g/dL [facility] RDW CV 13.2 11.1 - 14.9 % [facility] RDW SD 48.2(H) 35.7 - 48.1 fL [facility] NRBC abs 0.00 0.00 - 0.01 K/cumm [facility] Blood 08/06/2024 7:33 AM CDT 08/06/2024 8:04 AM CDT us Gurdeep Herrera ASTRO TECHNICIAN LAB BLOOD ORDERABLES Final Resu lt Performing Organization Address [facility] Co de Phone Number [facility] [address] Department [place] [address] * POCT glucose (08/05/2024 8:01 PM CDT) Glucose, POC 176 70 - 199 mg/dL Comment: For Glucose values <35 mg/dl when Hematocrit is >60 mg/dl,the test may not accurately detect significant hypoglycemia,and testing in the Laboratory should be considered if clinically indicated. POC Performer [id number] [facility] Blood 08/05/2024 8:01 PM CDT 08/05/2024 8:01 PM CDT Marques Hull MD LAB POCT ORDERABLES - DEVICE Fin al Result Performing Organization Address [facility] de Phone Number [facility] [address] Department [place] [address] * POCT glucose (08/05/2024 4:44 PM CDT) Glucose, POC 147 70 - 199 mg/dL Comment: For Glucose values <35 mg/dl when Hematocrit is >60 mg/dl,the test may not accurately detect significant hypoglycemia,and testing in the Laboratory should be considered if clinically indicated. POC Performer [id number] [facility] Blood 08/05/2024 4:44 PM CDT 08/05/2024 4:44 PM CDT Marques Hull MD LAB POCT ORDERABLES - DEVICE Fin al Result [facility] [address] Department [place] [address] * TRANSTHORACIC ECHO (TTE) COMPLETE W DOPPLER/CF W CONTRAST (08/05/2024 2:48 PM CDT) LV EF 55-60 % CONS SCIMAGE Anatomical Region Laterality Modality Ultrasound 08/05/2024 9:44 AM CDT Narrative 08/05/2024 9:43 PM CDT [facility] [address] [place] [address] ECHOCARDIOGRAM Patient Name: ROSCOE SUTHERLAND J : 1950 (74y 4m) Gender: M Study Date: 08/05/2024 09:44:41 AM Ht(Inch): 73 Wt(Lb): 207.01 BSA: 2.2 Magento Developer: Location: [id number] Order Provider: DONNIE BONILLA BMI: 27.31 BP: [...] Procedure Note Kevin Winter MD - 08/05/[address] [address] ECHOCARDIOGRAM Patient Name: ROSCOE SUTHERLAND J : 1950 (74y 4m) Gender: M Study Date: 08/05/2024 09:44:41 AM Ht(Inch): 73 Wt(Lb): 207.01 BSA: 2.2 Mag[employer] Developer: NEEL Location: [address] Order Provider: DONNIE BONILLA BMI: 27.31 [...] be considered if clinically indicated. POC Performer [id number] [facility] Blood 08/05/2024 11:3 8 AM CDT 08/05/2024 11:38 AM CDT Marques Hull MD LAB POCT ORDERABLES - DEVICE Fin al Result [facility] [address] Department [place] [address] * (ABNORMAL) Urinalysis reflex to microscopic and culture Urine (08/05/2024 10:12 AM CDT) Color, ur Yaz Yellow Clarity, ur Turbid(A) Clear [facility] Specific gravity, ur 1.021 1.003 - 1.030 [facility] pH, urine 6.5 [facility] Comment: Interpretive Data U rine pH is affected by diet, medications, systemic acid-base disturbances, and renal tubular function. pH may affect urinary stone formation. For example, urine pH below 6.0 may help reduce the tendency for calcium phosphate stones and pH greater than 6.0 may reduce the tendency for uric acid stone formation. Source: [facility] Current Interpretive Data was last revised on 2017 Protein, ur ql 1+(A) Negative [facility] Glucose, ur ql 3+(A) Negative [facility] Ketones, ur Negative Negative [facility] Bilirubin, ur Negative Negative [facility] Blood, ur 3+(A) Negative [facility] Urobilinogen, ur <2.0 <2.0 mg/dL [facility] Nitrite, ur Negative Negative [facility] Leukocyte esterase, ur 2+(A) Negative [facility] UA reflex comment Reflex to microscopic UA will be performed. [facility] Urine 08/05/2024 10:1 2 AM CDT 08/05/2024 10:19 AM CDT Donnie Bonilla DO LAB MICROBIOLOGY - GEN ERAL ORDERABLES Final Result [facility] [address] Department [place] [address] * (ABNORMAL) Urinalysis, microscopic only (08/05/2024 10:12 AM CDT) WBC, ur >50(A) 0 - 5 /HPF RBC, ur >50(A) 0 - 2 /HPF [facility] Epithelial cells, squamous, ur 1-5 0 - 5 /HPF [facility] Culture Reflex Comment Reflex to urine culture will be performed. [facility] Urine 08/05/2024 10:1 2 AM CDT 08/05/2024 12:05 PM CDT Donnie Bonilla DO LAB URINE ORDERABLES F inal Result Performing Organization Address [facility] Co de Phone Number [facility] [address] [place] [address] * Urine culture Urine (08/05/2024 10:12 AM CDT) Report Final Report: No growth Urine 08/05/2024 10:1 2 AM CDT 08/05/2024 12:06 PM CDT Narrative [facility] - 08/07/2024 9:28 AM CDT Urine culture reflexed based upon urinalysis results. Donnie Bonilla DO LAB MICROBIOLOGY - GEN ERAL ORDERABLES Final Result Performing Organization Address [facility] de Phone Number [facility] [address] [facility] [place] [address] * POCT glucose (08/05/2024 7:53 AM CDT) Glucose, POC 149 70 - 199 mg/dL Comment: For Glucose values <35 mg/dl when Hematocrit is >60 mg/dl,the test may not accurately detect significant hypoglycemia,and testing in the Laboratory should be considered if clinically indicated. POC Performer [id number] [facility] Glucose comment 1 RN/MD Notified [facility] Blood 08/05/2024 7:53 AM CDT 08/05/2024 7:53 AM CDT us Marques Hull MD LAB POCT ORDERABLES - DEVICE Fin al Result Performing Organization Address [facility] Co de Phone Number [facility] [address] Department [place] [address] * eGFR (08/05/2024 6:10 AM CDT) eGFR [...] ORDERABLES Final Resul t Performing Organization Address [facility]/ZIP Co de Phone Number [facility] [address] [facility] [place] [address] * (ABNORMAL) Thyroid Function [place] (08/05/2024 6:10 AM CDT) TSH 4.44(H) 0.30 - 4.20 mcIUnit/mL Blood 08/05/2024 6:10 AM CDT 08/05/2024 6:45 AM CDT Shellie Roldan MD LAB BLOOD ORDERABLES Final Resul t [facility] [address] [facility] [place] [address] * (ABNORMAL) CBC without differential (08/05/2024 6:10 AM CDT) [facility] WBC 4.9 3.8 - 9.9 K/cumm Hgb 14.6 13.0 - 17.5 g/dL [facility] Hct 44.6 38.9 - 50.3 % [facility] Plt 227 150 - 400 K/cumm [facility] MPV 11.3 9.1 - 12.3 fL [facility] RBC 4.58 4.30 - 5.80 M/cumm [facility] MCV 97.4(H) 81.3 - 96.4 fL [facility] MCH 31.9 27.1 - 33.3 pg [facility] MCHC 32.7 32.3 - 35.7 g/dL [facility] RDW CV 13.4 11.1 - 14.9 % [facility] RDW SD 48.0 35.7 - 48.1 fL [facility] NRBC abs 0.00 0.00 - 0.01 K/cumm [facility] Blood 08/05/2024 6:10 AM CDT 08/05/2024 6:45 AM CDT us Shellie Roldan MD LAB BLOOD ORDERABLES Final Resul t Performing Organization Address [facility]/ZIP Co de Phone Number [facility] [address] Department [place] [address] * T4, free (08/05/2024 6:10 AM CDT) Pathologist [facility] [place] Free T4 1.33 0.90 - 1.70 ng/dL Blood 08/05/2024 6:10 AM CDT 08/05/2024 6:45 AM CDT Narrative [facility] - 08/05/2024 7:40 AM CDT This test was reflexed from a TSH result. us Shellie Roldan MD LAB BLOOD ORDERABLES Final Resul t [facility] [address] [facility] [place] [address] * Phosphorus (08/05/2024 6:10 AM CDT) Phosphorus, pl 2.6 2.3 - 4.5 mg/dL Blood 08/05/2024 6:10 AM CDT 08/05/2024 6:45 AM CDT Shellie Roldan MD LAB BLOOD ORDERABLES Final Resul t Performing Organization Address [facility] Co de Phone Number [facility] [address] [facility] [place] [address] * Magnesium (08/05/2024 6:10 AM CDT) Pathologist [facility] [place] Magnesium 1.9 1.4 - 2.5 mg/dL Blood 08/05/2024 6:10 AM CDT 08/05/2024 6:45 AM CDT Shellie Roldan MD LAB BLOOD ORDERABLES Final Resul t Performing Organization Address [facility] Co de Phone Number [facility] [address] [facility] [place] [address] * (ABNORMAL) Hemoglobin A1c (08/05/2024 6:10 AM CDT) [facility] Hgb A1C 7.1(H) 4.0 - 5.6 % Estimated Average Glucose 157 mg/dL [facility] Comment: The ADA recommends reporting an estimated Average Glucose (eAG) with all Hemoglobin A1c results using the equation derived from a study of 507 normal and diabetic adults. Minority populations were underrepresented and children were not included. (Diabetes Care 31:2992-7283, 2008). The eAG is not equivalent to a fasting glucose. Blood 08/05/2024 6:10 AM CDT 08/05/2024 6:45 AM CDT us Shellie Roldan MD LAB BLOOD ORDERABLES Final Resul t [facility] [address] Department [place] [address] * Lipid panel (08/05/2024 6:10 AM CDT) [...] revised on 2018. Triglycerides 65 <=149 mg/dL [facility] Comment: Interpretive Data Ages < [...] revised on 2018. HDL 42 >=40 mg/dL [facility] Comment: Interpretive Data Ages < [...] on 2018. LDL, calculated 56 <=129 mg/dL [facility] Comment: Interpretive Data Ages < [...] revised on 2024. Non-HDL Cholesterol 70 mg/dL [facility] Comment: Interpretive Data Ages < [...] last revised on 2018. Chol/HDL ratio 3 [facility] Blood 08/05/2024 6:10 AM CDT 08/05/2024 6:45 AM CDT us Shellie Roldan MD LAB BLOOD ORDERABLES Final Resul t [facility] [address] Department [place] [address] * Basic metabolic panel (08/05/2024 6:10 AM CDT) Sodium 135 135 - 145 mmol/L Potassium, pl 3.8 3.3 - 4.9 mmol/L [facility] Chloride 102 97 - 110 mmol/L [facility] CO2 23 22 - 32 mmol/L [facility] Anion gap 10 2 - 15 mmol/L [facility] BUN 16 6 - 25 mg/dL [facility] Creatinine 0.94 0.80 - 1.30 mg/dL [facility] Glucose 168 70 - 199 mg/dL [facility] Comment: Interpretive Data Fasting glucose [...] 2022. Calcium 9.6 8.5 - 10.3 mg/dL [facility] Blood 08/05/2024 6:10 AM CDT 08/05/2024 6:45 AM CDT us Shellie Roldan MD LAB BLOOD ORDERABLES Final Resul t [facility] [address] Department [place] [address] * POCT glucose (08/05/2024 5:47 AM CDT) Glucose, POC 145 70 - 199 mg/dL Comment: For Glucose values <35 mg/dl when Hematocrit is >60 mg/dl,the test may not accurately detect significant hypoglycemia,and testing in the Laboratory should be considered if clinically indicated. POC Performer [id number] [facility] Blood 08/05/2024 5:47 AM CDT 08/05/2024 5:47 AM CDT Donnie Bonilla DO LAB POCT ORDERABLES - DEVICE Final Result Performing Organization Address [facility] Co de Phone Number [facility] [address] [facility] [place] [address] * POCT glucose (08/05/2024 1:20 AM CDT) [facility] Signature Glucose, POC 125 70 - 199 mg/dL Comment: For Glucose values <35 mg/dl when Hematocrit is >60 mg/dl,the test may not accurately detect significant hypoglycemia,and testing in the Laboratory should be considered if clinically indicated. POC Performer [id number] [facility] Blood 08/05/2024 1:20 AM CDT 08/05/2024 1:20 AM CDT Shellie Roldan MD LAB POCT ORDERABLES - DEVICE Fin al Result Performing Organization Address [facility] Co de Phone Number [facility] [address] Department [place] [address] * MRI Brain WO Contrast (08/05/2024 12:30 [...] by: Teto Briscoe MD Shellie Roldan MD [facility] MRI PROCEDURES Final Result * POCT glucose (08/04/2024 10:44 PM CDT) Glucose, POC 165 70 - 199 mg/dL Comment: For Glucose values <35 mg/dl when Hematocrit is >60 mg/dl,the test may not accurately detect significant hypoglycemia,and testing in the Laboratory should be considered if clinically indicated. POC Performer [id number] [facility] Blood 08/04/2024 10:4 4 PM CDT 08/04/2024 10:44 PM CDT us Almita Hickey MD LAB POCT ORDERABLES - DEV ICE Final Result ROS [facility] [address] Department [place] [address] * CTA Stroke Head Neck W WO Contrast (08/04/2024 10:31 PM CDT) Anatomical Region Laterality Modality Head and Neck N/A Computed Tomogra phy 08/04/2024 10:1 9 PM CDT Impressions 08/05/2024 2:[address] evidence of stroke. No acute intracranial abnormality. 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 For the purposes of quality control clerk, this study was initially interpreted by teleradiology. [...] L ICA terminus: Reconstitution secondary to the [place] L M1: no occlusion or [...] Artery: no occlusion or significant stenosis L LOCAL OPERATOR: no occlusion or significant stenosis R LOCAL OPERATOR: no occlusion or significant stenosis No cerebral [...] L ICA terminus: Reconstitution secondary to the [place] L M1: no occlusion or [...] Artery: no occlusion or significant stenosis L LOCAL OPERATOR: no occlusion or significant stenosis R LOCAL OPERATOR: no occlusion or significant stenosis No cerebral [...] level of the carotid terminus via the [place], likely chronic. For the purposes of quality control clerk, this study was initially interpreted by teleradiology. [...] MD LAB BLOOD ORDERABLES Vee rosario Result [facility] [address] Department [place] [address] * (ABNORMAL) Differential, auto (08/04/2024 6:50 PM CDT) Neutrophil abs 2.6 1.5 - 6.5 K/cumm Imm gran abs 0.0 0.0 - 0.1 K/cumm [facility] Lymphocyte abs 1.8 0.8 - 3.3 K/cumm [facility] Monocyte abs 0.7 0.2 - 0.8 K/cumm [facility] Eosinophil abs 0.7(H) 0.0 - 0.5 K/cumm [facility] Basophil abs 0.1 0.0 - 0.1 K/cumm [facility] Neutrophil pct 44.3 % [facility] Comment: Interpretive Data Percent cell count reference ranges are not reported, since discordance with absolute values may lead to misinterpretation of CBC data. Current Interpretive Data was last revised on 2017. Imm gran pct 0.3 % [facility] Comment: Interpretive Data Percent cell count reference ranges are not reported, since discordance with absolute values may lead to misinterpretation of CBC data. Current Interpretive Data was last revised on 2017. Lymphocyte pct 30.1 % [facility] Comment: Interpretive Data Percent cell count reference ranges are not reported, since discordance with absolute values may lead to misinterpretation of CBC data. Current Interpretive Data was last revised on 2017. Monocyte pct 11.7 % [facility] Comment: Interpretive Data Percent cell count reference ranges are not reported, since discordance with absolute values may lead to misinterpretation of CBC data. Current Interpretive Data was last revised on 2017. Eosinophil pct 12.2 % [facility] Comment: Interpretive Data Percent cell count reference ranges are not reported, since discordance with absolute values may lead to misinterpretation of CBC data. Current Interpretive Data was last revised on 2017. Basophil pct 1.4 % [facility] Comment: Interpretive Data Percent cell count reference ranges are not reported, since discordance with absolute values may lead to misinterpretation of CBC data. Current Interpretive Data was last revised on 2017. Blood 08/04/2024 6:50 PM CDT 08/04/2024 7:04 PM CDT us Almita Hickey MD LAB BLOOD ORDERABLES Vee rosario Result [facility] [address] Department [place] [address] * (ABNORMAL) CBC with auto differential (08/04/2024 6:50 PM CDT) WBC 5.9 3.8 - 9.9 K/cumm Hgb 15.6 13.0 - 17.5 g/dL [facility] Hct 48.5 38.9 - 50.3 % [facility] Plt 273 150 - 400 K/cumm [facility] MPV 11.1 9.1 - 12.3 fL [facility] RBC 4.92 4.30 - 5.80 M/cumm [facility] MCV 98.6(H) 81.3 - 96.4 fL [facility] MCH 31.7 27.1 - 33.3 pg [facility] MCHC 32.2(L) 32.3 - 35.7 g/dL [facility] RDW CV 13.4 11.1 - 14.9 % [facility] RDW SD 48.7(H) 35.7 - 48.1 fL [facility] NRBC abs 0.00 0.00 - 0.01 K/cumm [facility] Blood 08/04/2024 6:50 PM CDT 08/04/2024 7:04 PM CDT us Almita Hickey MD LAB BLOOD ORDERABLES Vee rosario Result [facility] [address] Department [place] [address] * Comprehensive metabolic panel (08/04/2024 6:50 PM CDT) Sodium 141 135 - 145 mmol/L Potassium, pl 4.4 3.3 - 4.9 mmol/L [facility] Chloride 104 97 - 110 mmol/L [facility] CO2 25 22 - 32 mmol/L [facility] Anion gap 12 2 - 15 mmol/L [facility] BUN 20 6 - 25 mg/dL [facility] Creatinine 1.13 0.80 - 1.30 mg/dL [facility] Glucose 147 70 - 199 mg/dL [facility] Comment: Interpretive Data Fasting glucose [...] 2022. Calcium 10.2 8.5 - 10.3 mg/dL [facility] Bilirubin, total 0.5 0.1 - 1.2 mg/dL [facility] Protein, pl 6.8 6.5 - 8.5 g/dL [facility] Albumin 4.1 3.5 - 5.0 g/dL [facility] Alk phos 64 40 - 130 Units/L [facility] ALT 24 7 - 55 Units/L [facility] AST 24 10 - 50 Units/L [facility] Comment:Slightly Hemolyzed S pecimen Blood 08/04/2024 6:50 PM CDT 08/04/2024 7:05 PM CDT Almita Hickey MD LAB BLOOD ORDERABLES Vee l Result Performing Organization Address [facility]/ZIP Co de Phone Number [facility] [address] Department of [employer] [place], [place] [id number] * POCT glucose (08/04/2024 6:48 PM CDT) [facility] Glucose, POC 136 70 - 199 mg/dL Comment: For Glucose values <35 mg/dl when Hematocrit is >60 mg/dl,the test may not accurately detect significant hypoglycemia,and testing in the Laboratory should be considered if clinically indicated. POC Performer [id number] [facility] Blood 08/04/2024 6:48 PM CDT 08/04/2024 6:48 PM CDT Almita Hickey MD LAB POCT ORDERABLES - DEV ICE Final Result [facility] [address] Department [place] [address] * ECG 12 lead (08/04/2024 6:37 PM CDT) 08/04/2024 6:37 PM CDT Narrative [facility] - 08/05/2024 10:58 PM CDT Vent Rate: 68 bpm RR Interval: 875 msec HI Interval: 194 msec QRS Duration: 96 msec QT Interval: 380 msec QTC Interval: 397 msec P-R-T [place]: -8 - -21 - 16 degrees IMPRESSION: SINUS RHYTHM BORDERLINE LEFT AXIS DEVIATION LOW QRS VOLTAGE IN PRECORDIAL LEADS BORDERLINE ECG Electronically Signed By: Kevin Winter [facility] Card us Almita Hickey MD ECG ORDERABLES Final Res ult [facility] from Last 3 Months Insurance MEDICARE [facility] MEDICARE SUPPLEMENT MEDICARE [facility] MEDICARE BLUE CROSS MEDICARE SUPPLEMENT Advance Directives For more information, please contact: [phone] * Full Code (Latest Code Status on File) Date Activated Date Inactivated Comments 08/05/2024 12:34 AM 08/06/2024 7:16 PM Care Teams Riprap Man Relationship Specialty Start Date End Date Larry Morel MD PCP - General Family Medicine 12/05/19 Noam Horn MD [address] [place] [address] Referring Physician Endocrinology Diabetes & Metabolism 07/29/20 Hao Perez MD [address] [place] [address] Referring Physician Ophthalmology 07/29/20
--- OUTSIDE RECORDS SUMMARY | 2024-10-05 04:48 | XMS_ITS | Encounter Summary ---
Author Organization [facility] Address [address] [place] [address] Care Team Providers Care Pcb Design Engineer Name Role Phone Larry Morel MD Primary Care Provider [phone] Noam Horn MD Unavailable [phone] Hao Perez MD Unavailable [phone] Reason for Visit * Auth/Cert (Routine) Specialty Diagnoses / Procedures Referred By Ayesha t Referred To Contact Diagnoses Gross hematuria Gross hematuria [R31.0] Procedures MD CYSTO W/REMOVAL OF LESIONS SMALL MD CYSTOURETHROSCOPY WITH BIOPSY Cystoscopy, Fulguration of Bladder Possible Bladder Biopsy Referral ID Status Reason Start Date Expiration Date Visits Re quested Visits Authorized [id number] 1 1 Encounter Details Date Type Department Care Team (Latest Contact Info) Description 10/04/2024 10:19 AM CDT - 10/04/2024 4:10 PM CDT Hospital Encounter [facility] [address] [place] [id number] [place] [address] [place] [id number] Gross hematuria Discharge Disposition: Discharge to home [...] on file 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 * Anxiolysis in Adults (AfterCare(R) Instructions(ER/ED)) (Niuean) documented in this encounter Medications at Time [...] 182 70 - 199 mg/dL POC Performer [id number] Assessment Principal Problem: Gross hematuria Plan Cystoscopy [...] speak to his primary care doctor and bander and cellophaner helper machine about the need for continued anticoagulation. documented [...] received Ancef for antibiotic prophylaxis. A 22 Belgian cystoscope was advanced through the urethra into [...] be considered if clinically indicated. POC Performer [id number] [facility] Blood 10/04/2024 2:19 PM CDT 10/04/2024 2:19 PM CDT us Rell Worthy MD LAB POCT ORDERABLES - DEVICE F inal Result [facility] [address] Department [place] [address] * POCT glucose (10/04/2024 11:08 AM CDT) Glucose, POC 182 70 - 199 mg/dL Comment: For Glucose values <35 mg/dl when Hematocrit is >60 mg/dl,the test may not accurately detect significant hypoglycemia,and testing in the Laboratory should be considered if clinically indicated. POC Performer [id number] ROS [facility] Blood 10/04/2024 11:0 8 AM CDT 10/04/2024 11:08 AM CDT us Rell Worthy MD LAB POCT ORDERABLES - DEVICE F inal Result [facility] [address] Department [place] [address] documented in this encounter Visit Diagnoses Diagnosis [...] Call MD for each episode of hypoglycemia. SUPERVISOR THROWING DEPARTMENT STATES GLUTOSE-15 CONTAINS GLUCOSE 40% W/W (50% [...] Call MD for each episode of hypoglycemia. SUPERVISOR THROWING DEPARTMENT STATES GLUTOSE-15 CONTAINS GLUCOSE 40% W/W (50% [...] Call MD for each episode of hypoglycemia. SUPERVISOR THROWING DEPARTMENT STATES GLUTOSE-15 CONTAINS GLUCOSE 40% W/W (50% [...] 10/04/2024 documented in this encounter Care Teams Pcb Design Engineer Relationship Specialty Start Date End Date Larry Morel MD PCP - General Family Medicine 12/05/19 Noam Horn MD [address] [place] [address] Referring Physician Endocrinology Diabetes & Metabolism 07/29/20 Hao Perez MD [address] [place] [address] Referring Physician Ophthalmology 07/29/20 documented as of this encounter
--- OUTSIDE RECORDS SUMMARY | 2024-10-05 04:48 | XMS_ITS | Clinical Summary ---
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 07/29/2020 Overview (07/29/2020): Added automatically from request for surgery [id number] Encounters Date Type Department Care Team Description 10/04/2024 1:29 PM CDT Anesthesia Event [facility] Operating Room [address] [place] [phone] Tonny Stafford DO Eubanks, Marianna, CRNA 10/04/2024 12:30 PM CDT - 10/04/2024 1:45 PM CDT Surgery [facility] Operating Room [address] [place] [phone] Rell Worthy MD Cystoscopy 10/04/2024 10:19 AM CDT - 10/04/2024 4:10 PM CDT Hospital Encounter [facility] Operating Room [address] [place] [phone] Rell Worthy MD Gross hematuria Discharge Disposition: Discharge to home or self care 10/03/2024 12:00 PM CDT Pre-Admission Testing [facility] Pre Anesthesia Testing [address] [place] [phone] 10/02/2024 Telephone [facility] Pre Anesthesia Testing [address] [place] [address] MiniMarium marinWong 08/29/2024 9:20 AM CDT Office Visit [facility] Orthopaedic Surgery [address] [facility] 6th [place] [address] [place] [address] Issa Montana MD Arthritis of carpometacarpal (CMC) joint of left thumb (Primary Dx); Arthritis, degenerative, localized, primary, hand, left 08/04/2024 6:33 PM CDT - 08/06/2024 3:00 PM CDT Hospital Encounter [facility] [address] [place] [address] Almita Hickey MD Li, MD [...] on file 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 Right: Thumb [employer] [id number] 06/16/2025 AR-8978-C P / / [id number] [employer] Mcp-50 Mcp 50 Joint Finger Silicone Ii Sterile Latex Free - [id number] Implanted:Qty: 1 on 08/14/2020 by Issa Montana MD at [facility] Right: Index Finger [employer] [id number] 01/14/2023 MCP-50 / / [id number] Procedures Procedure Name Priority Date/Time Associated Diagnosis Comments POCT GLUCOSE DEVICE Routine 10/04/2024 2 :19 PM CDT WA AN PROCEDURE PLACEHOLDER Routine 10/04/2024 1:40 PM CDT WA AN ELECTIVE SUPRAGLOTTIC AIRWAY Routine 10/04/2024 1:40 PM CDT BIOPSY BLADDER - CYSTOSCOPY 10/04/2024 1:30 PM CDT Gross hematuria CYSTOSCOPY CLOT EVACUATION 10/04/2024 1:30 PM CDT Gross hematuria POCT GLUCOSE DEVICE Routine 10/04/2024 11:08 AM CDT WA ARTHROCENTESIS ASPIR&/INJ SMALL JT/BURSA W/O US Routine 08/29/2024 9:20 AM CDT Arthritis, degenerative, localized, primary, hand, left WA ARTHROCENTESIS ASPIR&/INJ SMALL JT/BURSA W/O US Routine [...] be considered if clinically indicated. POC Performer [id number] [facility] Blood 10/04/2024 2:19 PM CDT 10/04/2024 2:19 PM CDT us Rell Worthy MD LAB POCT ORDERABLES - DEVICE F inal Result [facility] [address] [place] [address] * WA AN ELECTIVE SUPRAGLOTTIC AIRWAY, WA AN PROCEDURE PLACEHOLDER (10/04/2024 1:40 PM CDT) Narrative Janae Campo CRNA - 10/04/2024 1:40 PM CDT Janae Campo CRNA 10/04/2024 1:41 PM Airway Patient location: OR Urgency: elective Indications for airway management: anesthesia Difficult airway: no Staff: Supervising provider: Tonny Stafford DO Placed by: FISHER TROT LINE: Janae Campo CRNA Emergent airway documentation: Risks and benefits discussed: yes Consent obtained: yes Consent given by: patient Airway prep: Preoxygenated: yes Patient position: sniffing Mask difficulty assessment: 0 - not attempted Sedation level during airway: GA Final airway details: Final airway type: supraglottic airway Final supraglottic airway: [place] SGA size: 5 Number of attempts: 1 [...] be considered if clinically indicated. POC Performer [id number] [facility] Blood 10/04/2024 11:0 8 AM CDT 10/04/2024 11:08 AM CDT us Rell Worthy MD LAB POCT ORDERABLES - DEVICE F inal Result [facility] [address] [place] [address] * WA ARTHROCENTESIS ASPIR&/INJ SMALL JT/BURSA W/O US (08/29/2024 [...] MD IN CLINIC/BEDSIDE ORDERABLES Final Result * WA ARTHROCENTESIS ASPIR&/INJ SMALL JT/BURSA W/O US (08/29/2024 [...] PM CDT Narrative 09/07/2024 12:30 PM CDT [address] [place] [address] CARDIAC EVENT MONITOR REPORT Patient Name: ROSCOE SUTHERLAND J : 1950 (74y 5m) Gender: M Study Date: 09/04/2024 11:59:00 PM Ht(Inch): Wt(Lb): BSA: Tech: Location: [id number] Order Provider: GURDEEP HERRERA BMI: Ref Provider: [...] Procedure Note Reed Cohen MD - 09/07/2024 [address] [place] [address] CARDIAC EVENT MONITOR REPORT Patient Name: ROSCOE SUTHERLAND J : 1950 (74y 5m) Gender: M Study Date: 09/04/2024 11:59:00 PM Ht(Inch): Wt(Lb): BSA: Tech: Location: [address] Order Provider: GURDEEP HERRERA BMI: Ref [...] * POCT glucose (08/06/2024 11:40 AM CDT) [facility] Glucose, POC 150 70 - 199 mg/dL Comment: For Glucose values <35 mg/dl when Hematocrit is >60 mg/dl,the test may not accurately detect significant hypoglycemia,and testing in the Laboratory should be considered if clinically indicated. POC Performer [phone] [facility] Blood 08/06/2024 11:4 0 AM CDT 08/06/2024 11:40 AM CDT Marques Hull MD LAB POCT ORDERABLES - DEVICE Fin al Result [facility] [address] Department [place] [address] * POCT glucose (08/06/2024 7:50 AM CDT) [facility] Glucose, POC 161 70 - 199 mg/dL Comment: For Glucose values <35 mg/dl when Hematocrit is >60 mg/dl,the test may not accurately detect significant hypoglycemia,and testing in the Laboratory should be considered if clinically indicated. POC Performer [id number] [facility] Blood 08/06/2024 7:50 AM CDT 08/06/2024 7:50 AM CDT us Marques Hull MD LAB POCT ORDERABLES - DEVICE Fin al Result [facility] [address] Department [place] [address] * (ABNORMAL) Differential, auto (08/06/2024 7:33 AM CDT) [facility] Neutrophil abs 2.6 1.5 - 6.5 K/cumm Imm gran abs 0.0 0.0 - 0.1 K/cumm [facility] Lymphocyte abs 1.2 0.8 - 3.3 K/cumm [facility] Monocyte abs 0.6 0.2 - 0.8 K/cumm [facility] Eosinophil abs 0.7(H) 0.0 - 0.5 K/cumm [facility] Basophil abs 0.1 0.0 - 0.1 K/cumm [facility] Neutrophil pct 50.7 % [facility] Comment: Interpretive Data Percent cell count reference ranges are not reported, since discordance with absolute values may lead to misinterpretation of CBC data. Current Interpretive Data was last revised on 2017. Imm gran pct 0.4 % [facility] Comment: Interpretive Data Percent cell count reference ranges are not reported, since discordance with absolute values may lead to misinterpretation of CBC data. Current Interpretive Data was last revised on 2017. Lymphocyte pct 23.3 % [facility] Comment: Interpretive Data Percent cell count reference ranges are not reported, since discordance with absolute values may lead to misinterpretation of CBC data. Current Interpretive Data was last revised on 2017. Monocyte pct 11.2 % [facility] Comment: Interpretive Data Percent cell count reference ranges are not reported, since discordance with absolute values may lead to misinterpretation of CBC data. Current Interpretive Data was last revised on 2017. Eosinophil pct 13.2 % [facility] Comment: Interpretive Data Percent cell count reference ranges are not reported, since discordance with absolute values may lead to misinterpretation of CBC data. Current Interpretive Data was last revised on 2017. Basophil pct 1.2 % [facility] Comment: Interpretive Data Percent cell count reference ranges are not reported, since discordance with absolute values may lead to misinterpretation of CBC data. Current Interpretive Data was last revised on 2017. Blood 08/06/2024 7:33 AM CDT 08/06/2024 8:04 AM CDT us Gurdeep Herrera CONFIGURATION MANAGEMENT MANAGER LAB BLOOD ORDERABLES Final Resu lt [facility] [address] [place] [address] * (ABNORMAL) CBC with auto differential (08/06/2024 7:33 AM CDT) WBC 5.2 3.8 - 9.9 K/cumm Hgb 15.2 13.0 - 17.5 g/dL [facility] Hct 47.4 38.9 - 50.3 % [facility] Plt 256 150 - 400 K/cumm [facility] MPV 11.3 9.1 - 12.3 fL [facility] RBC 4.78 4.30 - 5.80 M/cumm [facility] MCV 99.2(H) 81.3 - 96.4 fL [facility] MCH 31.8 27.1 - 33.3 pg [facility] MCHC 32.1(L) 32.3 - 35.7 g/dL [facility] RDW CV 13.2 11.1 - 14.9 % [facility] RDW SD 48.2(H) 35.7 - 48.1 fL [facility] NRBC abs 0.00 0.00 - 0.01 K/cumm [facility] Blood 08/06/2024 7:33 AM CDT 08/06/2024 8:04 AM CDT Gurdeep Herrera NP LAB BLOOD ORDERABLES Final Resu lt Performing Organization Address City/[facility]/ZIP Co de Phone Number [facility] [address] [facility] [place] [address] * POCT glucose (08/05/2024 8:01 PM CDT) Glucose, POC 176 70 - 199 mg/dL Comment: For Glucose values <35 mg/dl when Hematocrit is >60 mg/dl,the test may not accurately detect significant hypoglycemia,and testing in the Laboratory should be considered if clinically indicated. POC Performer [id number] [facility] Blood 08/05/2024 8:01 PM CDT 08/05/2024 8:01 PM CDT Marques Hull MD LAB POCT ORDERABLES - DEVICE Fin al Result Performing Organization Address [facility] Co de Phone Number [facility] [address] [facility] [place] [address] * POCT glucose (08/05/2024 4:44 PM CDT) Glucose, POC 147 70 - 199 mg/dL Comment: For Glucose values <35 mg/dl when Hematocrit is >60 mg/dl,the test may not accurately detect significant hypoglycemia,and testing in the Laboratory should be considered if clinically indicated. POC Performer [phone] [facility] Blood 08/05/2024 4:44 PM CDT 08/05/2024 4:44 PM CDT Marques Hull MD LAB POCT ORDERABLES - DEVICE Fin al Result Performing Organization Address City/[facility]/ZIP Co de Phone Number [facility] [address] [facility] [place] [address] * TRANSTHORACIC ECHO (TTE) COMPLETE W DOPPLER/CF W CONTRAST (08/05/2024 2:48 PM CDT) LV EF 55-60 % CONS SCIMAGE Anatomical Region Laterality Modality Ultrasound 08/05/2024 9:44 AM CDT Narrative 08/05/2024 9:43 PM CDT [facility] [address] [place] [address] ECHOCARDIOGRAM Patient Name: ROSCOE SUTHERLAND J : 1950 (74y 4m) Gender: M Study Date: 08/05/2024 09:44:41 AM Ht(Inch): 73 Wt(Lb): 207.01 BSA: 2.2 Mechanical Design Engineer: NEEL Location: [id number] Order Provider: DONNIE BONILLA BMI: 27.31 BP: [...] L shunt. Electronically Signed By: Kevin Winter [facility] Card 08/05/2024 9:43:08 PM CDT Procedure Note Kevin Winter MD - 08/05/2024 [id number] [place] [address] ECHOCARDIOGRAM Patient Name: ROSCOE SUTHERLAND J : 1950 (74y 4m) Gender: M Study Date: 08/05/2024 09:44:41 AM Ht(Inch): 73 Wt(Lb): 207.01 BSA: 2.2 Mechanical Design Engineer: NEEL Location: [address] Order Provider: DONNIE BONILLA BMI: 27.31 [...] Spencer shunt. Electronically Signed By: Kevin Winter [facility] Card 08/05/2024 9:43:08 PM CDT us Donnie Bonilla DO CV ECHO PROCEDURES Fin al Result * POCT glucose (08/05/2024 11:38 AM CDT) [facility] Signature Glucose, POC 187 70 - 199 mg/dL Comment: For Glucose values <35 mg/dl when Hematocrit is >60 mg/dl,the test may not accurately detect significant hypoglycemia,and testing in the Laboratory should be considered if clinically indicated. POC Performer [id number] [facility] Blood 08/05/2024 11:3 8 AM CDT 08/05/2024 11:38 AM CDT us Marques Hull MD LAB POCT ORDERABLES - DEVICE Fin al Result [facility] [address] [place] [address] * (ABNORMAL) Urinalysis reflex to microscopic and culture Urine (08/05/2024 10:12 AM CDT) Color, ur Yaz Yellow Clarity, ur Turbid(A) Clear [facility] Specific gravity, ur 1.021 1.003 - 1.030 [facility] pH, urine 6.5 [facility] Comment: Interpretive Data U rine pH is affected by diet, medications, systemic acid-base disturbances, and renal tubular function. pH may affect urinary stone formation. For example, urine pH below 6.0 may help reduce the tendency for calcium phosphate stones and pH greater than 6.0 may reduce the tendency for uric acid stone formation. Source: [facility] Current Interpretive Data was last revised on 2017 Protein, ur ql 1+(A) Negative [facility] Glucose, ur ql 3+(A) Negative [facility] Ketones, ur Negative Negative [facility] Bilirubin, ur Negative Negative [facility] Blood, ur 3+(A) Negative [facility] Urobilinogen, ur <2.0 <2.0 mg/dL [facility] Nitrite, ur Negative Negative [facility] Leukocyte esterase, ur 2+(A) Negative [facility] UA reflex comment Reflex to microscopic UA will be performed. [facility] Urine 08/05/2024 10:1 2 AM CDT 08/05/2024 10:19 AM CDT Donnie Bonilla DO LAB MICROBIOLOGY - GEN ERAL ORDERABLES Final Result [facility] [address] [place] [address] * (ABNORMAL) Urinalysis, microscopic only (08/05/2024 10:12 AM CDT) WBC, ur >50(A) 0 - 5 /HPF RBC, ur >50(A) 0 - 2 /HPF [facility] Epithelial cells, squamous, ur 1-5 0 - 5 /HPF [facility] Culture Reflex Comment Reflex to urine culture will be performed. [facility] Urine 08/05/2024 10:1 2 AM CDT 08/05/2024 12:05 PM CDT Donnie Bonilla DO LAB URINE ORDERABLES F inal Result Performing Organization Address [facility] Co de Phone Number [facility] [address] Department [place] [address] * Urine culture Urine (08/05/2024 10:12 AM CDT) Pathologist [facility] Report Final Report: No growth Urine 08/05/2024 10:1 2 AM CDT 08/05/2024 12:06 PM CDT Narrative [facility] - 08/07/2024 9:28 AM CDT Urine culture reflexed based upon urinalysis results. Donnie Bonilla DO LAB MICROBIOLOGY - GEN ERAL ORDERABLES Final Result Performing Organization Address [facility] de Phone Number [facility] [address] Department [place] [address] * POCT glucose (08/05/2024 7:53 AM CDT) [facility] Glucose, POC 149 70 - 199 mg/dL Comment: For Glucose values <35 mg/dl when Hematocrit is >60 mg/dl,the test may not accurately detect significant hypoglycemia,and testing in the Laboratory should be considered if clinically indicated. POC Performer [id number] [facility] Glucose comment 1 RN/MD Notified [facility] Blood 08/05/2024 7:53 AM CDT 08/05/2024 7:53 AM CDT us Marques Hull MD LAB POCT ORDERABLES - DEVICE Fin al Result Performing Organization Address [facility] Co de Phone Number [facility] [address] [facility] [place] [address] * eGFR (08/05/2024 6:10 AM CDT) eGFR [...] MD LAB BLOOD ORDERABLES Final Resul t [facility] [address] [place] [address] * (ABNORMAL) Thyroid Function Jarratt (08/05/2024 6:10 AM CDT) TSH 4.44(H) 0.30 - 4.20 mcIUnit/mL Blood 08/05/2024 6:10 AM CDT 08/05/2024 6:45 AM CDT Shellie Roldan MD LAB BLOOD ORDERABLES Final Resul t [facility] [address] Department of [facility] [place], [place] [address] * (ABNORMAL) CBC without differential (08/05/2024 6:10 AM CDT) WBC 4.9 3.8 - 9.9 K/cumm Hgb 14.6 13.0 - 17.5 g/dL [facility] Hct 44.6 38.9 - 50.3 % [facility] Plt 227 150 - 400 K/cumm [facility] MPV 11.3 9.1 - 12.3 fL [facility] RBC 4.58 4.30 - 5.80 M/cumm [facility] MCV 97.4(H) 81.3 - 96.4 fL [facility] MCH 31.9 27.1 - 33.3 pg [facility] MCHC 32.7 32.3 - 35.7 g/dL [facility] RDW CV 13.4 11.1 - 14.9 % [facility] RDW SD 48.0 35.7 - 48.1 fL [facility] NRBC abs 0.00 0.00 - 0.01 K/cumm [facility] Blood 08/05/2024 6:10 AM CDT 08/05/2024 6:45 AM CDT Shellie Roldan MD LAB BLOOD ORDERABLES Final Resul t Performing Organization Address City/[facility]/ZIP Co de Phone Number [facility] [address] [facility] [place] [address] * T4, free (08/05/2024 6:10 AM CDT) Free T4 1.33 0.90 - 1.70 ng/dL Blood 08/05/2024 6:10 AM CDT 08/05/2024 6:45 AM CDT Narrative [facility] - 08/05/2024 7:40 AM CDT This test was reflexed from a TSH result. Shellie Roldan MD LAB BLOOD ORDERABLES Final Resul t [facility] [address] Department of [place] [address] * Phosphorus (08/05/2024 6:10 AM CDT) Pathologist [facility] Phosphorus, pl 2.6 2.3 - 4.5 mg/dL Blood 08/05/2024 6:10 AM CDT 08/05/2024 6:45 AM CDT us Shellie Roldan MD LAB BLOOD ORDERABLES Final Resul t Performing Organization Address [facility] Co de Phone Number [facility] [address] [facility] [employer] [place], [place] [id number] * Magnesium (08/05/2024 6:10 AM CDT) [facility] Magnesium 1.9 1.4 - 2.5 mg/dL Blood 08/05/2024 6:1 0 AM CDT 08/05/2024 6:45 AM CDT us Shellie Roldan MD LAB BLOOD ORDERABLES Final Resul t Performing Organization Address [facility] de Phone Number [facility] [address] [place] [address] * (ABNORMAL) Hemoglobin A1c (08/05/2024 6:10 AM CDT) [facility] Hgb A1C 7.1(H) 4.0 - 5.6 % Estimated Average Glucose 157 mg/dL [facility] Comment: The ADA recommends reporting an estimated Average Glucose (eAG) with all Hemoglobin A1c results using the equation derived from a study of 507 normal and diabetic adults. Minority populations were underrepresented and children were not included. (Diabetes Care 31:9538-7200, 2008). The eAG is not equivalent to a fasting glucose. Blood 08/05/2024 6:10 AM CDT 08/05/2024 6:45 AM CDT us Shellie Roldan MD LAB BLOOD ORDERABLES Final Resul t Performing Organization Address [facility] Co de Phone Number [facility] [address] Department [facility] [place] [place], [place] [address] * Lipid panel (08/05/2024 6:10 AM CDT) [...] revised on 2018. Triglycerides 65 <=149 mg/dL [facility] Comment: Interpretive Data Ages < or = [...] revised on 2018. HDL 42 >=40 mg/dL [facility] Comment: Interpretive Data Ages < or = [...] on 2018. LDL, calculated 56 <=129 mg/dL [facility] Comment: Interpretive Data Ages < or = [...] revised on 2024. Non-HDL Cholesterol 70 mg/dL [facility] Comment: Interpretive Data Ages < or = [...] last revised on 2018. Chol/HDL ratio 3 [facility] Blood 08/05/2024 6:10 AM CDT 08/05/2024 6:45 AM CDT us Shellie Roldan MD LAB BLOOD ORDERABLES Final Resul t [facility] [address] Department [place] [address] * Basic metabolic panel (08/05/2024 6:10 AM CDT) Sodium 135 135 - 145 mmol/L Potassium, pl 3.8 3.3 - 4.9 mmol/L [facility] Chloride 102 97 - 110 mmol/L [facility] CO2 23 22 - 32 mmol/L [facility] Anion gap 10 2 - 15 mmol/L [facility] BUN 16 6 - 25 mg/dL [facility] Creatinine 0.94 0.80 - 1.30 mg/dL [facility] Glucose 168 70 - 199 mg/dL [facility] Comment: Interpretive Data Fasting glucose >/= 126 [...] 2022. Calcium 9.6 8.5 - 10.3 mg/dL [facility] Blood 08/05/2024 6:10 AM CDT 08/05/2024 6:45 AM CDT us Shellie Roldan MD LAB BLOOD ORDERABLES Final Resul t Performing Organization Address City/[facility]/ZIP Co de Phone Number [facility] [address] Department [place] [address] * POCT glucose (08/05/2024 5:47 AM CDT) [facility] Signature Glucose, POC 145 70 - 199 mg/dL Comment: For Glucose values <35 mg/dl when Hematocrit is >60 mg/dl,the test may not accurately detect significant hypoglycemia,and testing in the Laboratory should be considered if clinically indicated. POC Performer [phone] [facility] Blood 08/05/2024 5:47 AM CDT 08/05/2024 5:47 AM CDT Donnie Bonilla DO LAB POCT ORDERABLES - DEVICE Final Result Performing Organization Address City/[facility]/ZIP Co de Phone Number [facility] [address] [place] [address] * POCT glucose (08/05/2024 1:20 AM CDT) Glucose, POC 125 70 - 199 mg/dL Comment: For Glucose values <35 mg/dl when Hematocrit is >60 mg/dl,the test may not accurately detect significant hypoglycemia,and testing in the Laboratory should be considered if clinically indicated. POC Performer [id number] [facility] Blood 08/05/2024 1:20 AM CDT 08/05/2024 1:20 AM CDT us Shellie Roldan MD LAB POCT ORDERABLES - DEVICE Fin al Result [facility] [address] [place] [address] * MRI Brain WO Contrast (08/05/2024 12:30 [...] be considered if clinically indicated. POC Performer [id number] ROS [facility] Blood 08/04/2024 10:4 4 PM CDT 08/04/2024 10:44 PM CDT Almita Hickey MD LAB POCT ORDERABLES - DEV ICE Final Result ROS [facility] [address] [place] [address] * CTA Stroke Head Neck W WO Contrast (08/04/2024 10:31 PM CDT) Anatomical Region Laterality Modality Head and Neck N/A Computed Tomogra phy 08/04/2024 10:1 9 PM CDT Impressions 08/05/2024 2:[address] evidence of stroke. No acute intracranial abnormality. 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 For the purposes of water quality manager, this study was initially interpreted by teleradiology. [...] L ICA terminus: Reconstitution secondary to the lower brule of Rea L M1: no occlusion or [...] Artery: no occlusion or significant stenosis L COMBINATION PRESSER: no occlusion or significant stenosis R COMBINATION PRESSER: no occlusion or significant stenosis No cerebral [...] L ICA terminus: Reconstitution secondary to the lower brule of Rea L M1: no occlusion or [...] Artery: no occlusion or significant stenosis L COMBINATION PRESSER: no occlusion or significant stenosis R COMBINATION PRESSER: no occlusion or significant stenosis No cerebral [...] level of the carotid terminus via the lower brule of Rea, likely chronic. For the purposes of water quality manager, this study was initially interpreted by teleradiology. [...] MD LAB BLOOD ORDERABLES Vee rosario Result [facility] [address] [place] [address] * (ABNORMAL) Differential, auto (08/04/2024 6:50 PM CDT) Neutrophil abs 2.6 1.5 - 6.5 K/cumm Imm gran abs 0.0 0.0 - 0.1 K/cumm [facility] Lymphocyte abs 1.8 0.8 - 3.3 K/cumm [facility] Monocyte abs 0.7 0.2 - 0.8 K/cumm [facility] Eosinophil abs 0.7(H) 0.0 - 0.5 K/cumm [facility] Basophil abs 0.1 0.0 - 0.1 K/cumm [facility] Neutrophil pct 44.3 % [facility] Comment: Interpretive Data Percent cell count reference ranges are not reported, since discordance with absolute values may lead to misinterpretation of CBC data. Current Interpretive Data was last revised on 2017. Imm gran pct 0.3 % [facility] Comment: Interpretive Data Percent cell count reference ranges are not reported, since discordance with absolute values may lead to misinterpretation of CBC data. Current Interpretive Data was last revised on 2017. Lymphocyte pct 30.1 % [facility] Comment: Interpretive Data Percent cell count reference ranges are not reported, since discordance with absolute values may lead to misinterpretation of CBC data. Current Interpretive Data was last revised on 2017. Monocyte pct 11.7 % [facility] Comment: Interpretive Data Percent cell count reference ranges are not reported, since discordance with absolute values may lead to misinterpretation of CBC data. Current Interpretive Data was last revised on 2017. Eosinophil pct 12.2 % [facility] Comment: Interpretive Data Percent cell count reference ranges are not reported, since discordance with absolute values may lead to misinterpretation of CBC data. Current Interpretive Data was last revised on 2017. Basophil pct 1.4 % [facility] Comment: Interpretive Data Percent cell count reference ranges are not reported, since discordance with absolute values may lead to misinterpretation of CBC data. Current Interpretive Data was last revised on 2017. Blood 08/04/2024 6:50 PM CDT 08/04/2024 7:04 PM CDT us Almita Hickey MD LAB BLOOD ORDERABLES Vee rosario Result [facility] [address] Department [place] [address] * (ABNORMAL) CBC with auto differential (08/04/2024 6:50 PM CDT) WBC 5.9 3.8 - 9.9 K/cumm Hgb 15.6 13.0 - 17.5 g/dL [facility] Hct 48.5 38.9 - 50.3 % [facility] Plt 273 150 - 400 K/cumm [facility] MPV 11.1 9.1 - 12.3 fL [facility] RBC 4.92 4.30 - 5.80 M/cumm [facility] MCV 98.6(H) 81.3 - 96.4 fL [facility] MCH 31.7 27.1 - 33.3 pg [facility] MCHC 32.2(L) 32.3 - 35.7 g/dL [facility] RDW CV 13.4 11.1 - 14.9 % [facility] RDW SD 48.7(H) 35.7 - 48.1 fL [facility] NRBC abs 0.00 0.00 - 0.01 K/cumm [facility] Blood 08/04/2024 6:50 PM CDT 08/04/2024 7:04 PM CDT us Almita Hickey MD LAB BLOOD ORDERABLES Vee l Result [facility] [address] [place] [address] * Comprehensive metabolic panel (08/04/2024 6:50 PM CDT) Sodium 141 135 - 145 mmol/L Potassium, pl 4.4 3.3 - 4.9 mmol/L [facility] Chloride 104 97 - 110 mmol/L [facility] CO2 25 22 - 32 mmol/L [facility] Anion gap 12 2 - 15 mmol/L [facility] BUN 20 6 - 25 mg/dL [facility] Creatinine 1.13 0.80 - 1.30 mg/dL [facility] Glucose 147 70 - 199 mg/dL [facility] Comment: Interpretive Data Fasting glucose >/= 126 [...] 2022. Calcium 10.2 8.5 - 10.3 mg/dL [facility] Bilirubin, total 0.5 0.1 - 1.2 mg/dL [facility] Protein, pl 6.8 6.5 - 8.5 g/dL [facility] Albumin 4.1 3.5 - 5.0 g/dL [facility] Alk phos 64 40 - 130 Units/L [facility] ALT 24 7 - 55 Units/L [facility] AST 24 10 - 50 Units/L [facility] Comment:Slightly Hemolyzed S pecimen Blood 08/04/2024 6:50 PM CDT 08/04/2024 7:05 PM CDT us Almita Hickey MD LAB BLOOD ORDERABLES Vee l Result Performing Organization Address [facility]/ZIP Co de Phone Number [facility] [address] [facility] [place], [place] [id number] * POCT glucose (08/04/2024 6:48 PM CDT) [facility] Glucose, POC 136 70 - 199 mg/dL Comment: For Glucose values <35 mg/dl when Hematocrit is >60 mg/dl,the test may not accurately detect significant hypoglycemia,and testing in the Laboratory should be considered if clinically indicated. POC Performer [phone] [facility] Blood 08/04/2024 6:48 PM CDT 08/04/2024 6:48 PM CDT us Almita Hickey MD LAB POCT ORDERABLES - DEV ICE Final Result Performing Organization Address [facility] Co de Phone Number [facility] [address] Department [place] [address] * ECG 12 lead (08/04/2024 6:37 PM CDT) 08/04/2024 6:[address] [facility] - 08/05/2024 10:58 PM CDT Vent Rate: 68 bpm RR Interval: 875 msec WA Interval: 194 msec QRS Duration: 96 msec QT Interval: 380 msec QTC Interval: 397 msec P-R-T Bells: -8 - -21 - 16 degrees IMPRESSION: SINUS RHYTHM BORDERLINE LEFT AXIS DEVIATION LOW QRS VOLTAGE IN PRECORDIAL LEADS BORDERLINE ECG Electronically Signed By: Kevin Winter [facility] Card us Almita Hickey MD ECG ORDERABLES Final Res ult [facility] from Last 3 Months Insurance MEDICARE [facility] MEDICARE SUPPLEMENT MEDICARE [facility] MEDICARE BLUE CROSS MEDICARE SUPPLEMENT Advance Directives For more information, please contact: [phone] * Full Code (Latest Code Status on File) Date Activated Date Inactivated Comments 08/05/2024 12:34 AM 08/06/2024 7:16 PM Care Teams Manager Administrative Services Relationship Specialty Start Date End Date Larry Morel MD PCP - General Family Medicine 12/05/19 Noam Horn MD [address] [place] [address] Referring Physician Endocrinology Diabetes & Metabolism 07/29/20 Hao Perez MD [address] [place] [address] Referring Physician Ophthalmology 07/29/20
[2024-10-05 05:40] LABS: Non Pathogenic Casts 0-2; RBC Urine >100 /hpf (0-2); Squamous Epithelial Cell Urine None Seen /hpf (Few); WBC Urine 21-50 /hpf (0-3)
[2024-10-05 05:42] LABS: Add Urine Microscopic? YES; Appearance Urine Cloudy (Clear); Bilirubin Urine Negative (Negative); Blood Urine 3+ (Negative); Glucose Urine UA 1+ mg/dL (Negative); Ketones Urine Negative (Negative); Leukocyte Esterase Ur 1+ LEU/UL (Negative); Nitrate Urine Negative (Negative); Protein Urine 3+ mg/dL (Negative); Specific Grav Ur 1.014 (1.001-1.035); Urobilinogen Urine 0.2 mg/dL (<2.0); pH Urine 5.5 (5.0-9.0)
[2024-10-05] MEDS: TAMSULOSIN HCL 0.4 MG CAPSULE PO (05:42)
[2024-10-05 05:50] LABS: Bacteria Urine Trace /hpf; Color Urine Amber (Yellow)
[2024-10-05 06:17] VITALS: BP 151/67; PULSE 76; RESP 16; O2SAT 98
[2024-10-05 06:26] VITALS: BP 151/67; PULSE 76; RESP 16; O2SAT 98
== END 2024-10-05 06:38 | disposition home or self-care (01) ==
PROVIDERS: Emergency Provider Emergency Medicine; PCP Family Medicine
DX: N99.89 Other postprocedural complications and disorders of genitourinary system (principal); R33.8 Other retention of urine; I10 Essential (primary) hypertension; E11.9 Type 2 diabetes mellitus without complications; K21.9 Gastro-esophageal reflux disease without esophagitis; E78.5 Hyperlipidemia, unspecified; E03.9 Hypothyroidism, unspecified; G47.33 Obstructive sleep apnea (adult) (pediatric); Z96.642 Presence of left artificial hip joint; Z96.651 Presence of right artificial knee joint; Z85.51 Personal history of malignant neoplasm of bladder; Z87.01 Personal history of pneumonia (recurrent); Z86.16 Personal history of COVID-19; Z86.73 Personal history of transient ischemic attack (TIA), and cerebral infarction without residual deficits; Z86.718 Personal history of other venous thrombosis and embolism; Z87.891 Personal history of nicotine dependence; Z98.49 Cataract extraction status, unspecified eye; Z79.84 Long term (current) use of oral hypoglycemic drugs; Z79.85 Long-term (current) use of injectable non-insulin antidiabetic drugs; Z79.4 Long term (current) use of insulin; Z79.82 Long term (current) use of aspirin; Z79.01 Long term (current) use of anticoagulants; Z79.899 Other long term (current) drug therapy
CPT/HCPCS: 51702; 81001; 87086; 99283; A9270

== ENCOUNTER 2024-12-08 10:32 | Outpatient (CLI) | payer MEDICARE, SELFPAY ==
--- NOTE | ~2024-12-08 | XR_ITS ---
XR abdomen/kub 1V 12/08/2024 11:14 Indication: Renal stone Procedure: KUB Comparison: Comparison to multiple prior studies sequentially, with oldest reviewed study dated 02/15. Findings: There is a left total hip arthroplasty. There is moderate osteoarthritis of the right hip. There are loose bodies lateral to the right hip joint. Pelvic rings are intact. There are gallstones. Impression: 1: Gallstones. Reviewed, dictated and finalized at location B. Impression: 1: Gallstones.
--- OUTSIDE RECORDS SUMMARY | 2024-12-08 10:39 | XMS_ITS | Encounter Summary ---
Author Organization [facility] Address [facility] [place] [address] Care Team Providers Care Service Writer Name Role Phone Larry Morel MD Primary Care Provider [phone] Emeli Allison MD Unavailable [phone] Issa Montana MD Unavailable [phone] Shamar Freire DO Unavailable Evan Loo MD Unavailable [phone] Timo Guallpa MD Unavailable Oswaldo Edmonds MD Unavailable [phone] Encounter Details Date Type Department Care Team (Late st Contact Info) Description 10/26/2024 [employer] Message [facility] Pre-Admission [place] [address] [facility] Provider Preparing for surgery 11/02/24 Social History Tobacco Use Types Packs/Day Years Used Date Smoking Tobacco: Former Cigarettes 2 12 1 9 - 1980 Smokeless Tobacco: Never Alcohol Use Standard Drinks/Week Comments Yes 1.7 (1 standard drink = 0.6 oz p ure alcohol) Sex and Gender Information Value Date Recorded Sex Assigned at Male 09/14/2024 12:08 PM CDT Legal Sex Male 10:00 AM CDT Gender Identity Not on file Sexual Orientation Not on file documented as of this encounter Plan of Treatment Not on file documented as of this encounter Visit Diagnoses Not on filedocumented in this encounter Care Teams Service Writer Relationship Specialty Start Date End Date Larry Morel MD [address] [place] [address] PCP - General FAMILY PRACTICE 09/23/23 Emeli Allison MD [address] [place] [address] Physician NEUROLOGICAL SURGERY 09/23/23 Issa Montana MD [address] [facility] [address] [place] [address] HAND SURGERY 09/23/23 Shamar Freire DO [address] [facility] [address] [place] [address] CARDIOLOGY 09/23/23 Evan Loo MD [address] [place] [address] NEUROLOGY 09/11/24 Timo Guallpa MD [address] [facility] [address] [place] [address] NEUROLOGY 09/11/24 Oswaldo Edmonds MD [address] [place] [address] NEUROLOGY 09/11/24 documented as of this encounter
--- OUTSIDE RECORDS SUMMARY | 2024-12-08 10:39 | XMS_ITS | Encounter Summary ---
Author Organization [facility] Address 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 AGENT Gender Identity Male 09/13/2024 10:33 AM CDT [...] CREATININE POC 1.0 0.6 - 1.3 mg/dL [facility] Capillary blood specimen (specimen) 09/02/2007 7:18 AM CDT 09/02/2007 7:18 AM CDT us Aniceto Ramirez DO POINT OF CARE TESTING Final R esult [facility] [address] [place] [address] documented in this encounter Visit Diagnoses Diagnosis Backache, unspecified documented in this encounter Care Teams Zinc Miner Relationship Specialty Start Date End Date Pantera Bolivar MD [address] [place] [address] [address] [place] [address] PCP - General 05/02/15 documented as of this encounter
--- OUTSIDE RECORDS SUMMARY | 2024-12-08 10:39 | XMS_ITS | Encounter Summary ---
Author Organization [facility] Address 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 Gender Identity Male 09/13/2024 10:33 AM CDT [...] FLUIDS AND STOOLS Edited Performing Organization Address [facility] Phone Number INTERFACE SYSTEM Refer to clinic/hospital department * (ABNORMAL) GLUCOSE, CSF (08/31/2006 10:25 AM CDT) GLUCOSE, CSF 95(H) 40 - 70 mg/dL INTERFACE SYSTEM 08/31/2006 10:2 5 AM CDT us Cornelius Orlando MD BODY FLUIDS AND STOOLS Edited Performing Organization Address [facility] de Phone Number INTERFACE SYSTEM Refer to [...] FLUIDS AND STOOLS Edited Performing Organization Address [facility] Phone Number INTERFACE SYSTEM Refer to clinic/hospital department documented in this encounter Visit Diagnoses Diagnosis Spinal stenosis, lumbar region, without neurogenic claudication- Primary documented in this encounter Care Teams Brake Tester Relationship Specialty Start Date End Date Pantera Bolivar MD [address] [place] [address] PCP - General 05/02/15 documented as of this encounter
--- OUTSIDE RECORDS SUMMARY | 2024-12-08 10:39 | XMS_ITS | Encounter Summary ---
Author Organization [facility] Address [address] [place] [address] Care Team Providers Care Breakfast Cook Name Role Phone Pantera Bolivar MD Primary Care Provider [phone] Encounter Details Date Type Department Care Team (Late st Contact Info) Description 12/04/2024 Orders Only [facility] Oncology and Hematology - [place] [address] [facility] [address] [place] [address] Mikael Gomes MD [address] [facility] [address] [place] [address] Benign hypertension Social History Tobacco Use Types Packs/Day Years Used Date Smoking Tobacco: Former Cigarettes 2 10 Q uit: 02/16/1989 Alcohol Use Standard Drinks/Week Comments Yes 0 (1 standard drink = 0.6 oz pur e alcohol) occasionally Sex and Gender Information Value Date Recorded Sex Assigned at Not on file 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
--- OUTSIDE RECORDS SUMMARY | 2024-12-08 10:39 | XMS_ITS | Patient Health Record ---
Author Organization [facility] Address [address] [facility] [place] [address] Care Team Providers Care Medical Insurance Verifier Name Role Phone Aniceto Ramirez Unavailable [phone] Reason For Referral No Information Medications Medication SIG (Take, Route, Frequency, Duration) Notes Start Date End Date Status hydroCHLOROthiazide 25 MG Oral; Duration: 90 Active Warfarin Sodium 6 MG Oral; Duration: 90 Active Celecoxib 200 MG Oral; Duration: 90 Active Potassium Chloride ER 10 MEQ Oral; Duration: 90 Active traMADol HCl 50 MG 2 tablets Orally TID as needed for pain; DO NOT EXCEED 6 TABS PER DAY; Duration: 30 days 02/09/2019 Active Mccook 5-325 MG 1 tablet Orally q 6- 8 hours PRN POST-procedural pain; Duration: 12 days 12/07/2019 Active Lantus SoloStar 100 UNIT/ML Subcutaneous ; Duration: 90 Active Levothyroxine Sodium 175 MCG Oral; Duration: 90 Active Omeprazole 20 MG Oral; Duration: 90 Active Atenolol 50 MG Oral; Duration: 90 Active metFORMIN HCl ER 500 MG Oral; Duration: 90 Active HumaLOG KwikPen 100 UNIT/ML Subcutaneous ; Duration: 90 Active Rosuvastatin Calcium 10 MG Oral; Duration: 90 Active Fenofibrate 200 MG Oral; Duration: 90 Active Gabapentin 300 MG Oral; Duration: 90 Active Problems Problem Type SNOMED Code ICD Code Onset Dates Problem Status W/U Status Risk Notes Problem Chronic pain syndrome (808588197) Chronic pain syndrome (G89.4) Active confirmed Problem Spinal enthesopathy (27366017) Spinal enthesopathy, 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) Active confirmed Problem Lumbosacral spondylosis without myelopathy (25336780) Spondylosis of lumbosacral region without myelopathy or radiculopathy (M47.817) Active confirmed Problem Enthesopathy of hip region (13137253) 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 Plan Of Treatment No Information Insurance Providers Payer Name Payer Address Payer Phone Subscriber Number Group Number Insured Name Patient Relationship to Insured Coverage Start Date Coverage End Date MEDICARE SERVICES [address] [address] [place], [place] [id number] null, null Self - patient is the insured Medications Administered Medication Instructions Date of Administration Dosage Notes Bilateral L3-S1 MBPR (lumbar facet) RF Denervation with fluoroscopy 12/07/2019 Bilateral L4/5 and L5/S1 Fac et Joint Injections with Fluoroscopy 02/09/2019 Bilateral L4/5 and L5/S1 Fac et Joint Injections with Fluoroscopy 08/03/2019 Trigger Point Injection 12/21/2018
--- OUTSIDE RECORDS SUMMARY | 2024-12-08 10:39 | XMS_ITS | Encounter Summary ---
Author Organization [facility] Address [facility] [place] [address] Care Team Providers Care Online Content Coordinator Name Role Phone Larry Morel MD Primary Care Provider [phone] Emeli Allison MD Unavailable [phone] Issa Montana MD Unavailable [phone] Shamar Freire DO Unavailable Evan Loo MD Unavailable [phone] Timo Guallpa MD Unavailable Oswaldo Edmonds MD Unavailable [phone] Encounter Details Date Type Department Care Team (Late st Contact Info) Description 11/02/2024 Prep for Procedure [facility] [address] [place], [place] [id number] Rell Worthy MD [address] [facility] [address] [place], [place] [id number] Social History Tobacco Use Types Packs/Day Years Used Date Smoking Tobacco: Former Cigarettes 2 12 1980 Smokeless Tobacco: Never Alcohol Use Standard Drinks/Week Comments Yes 1.7 (1 standard drink = 0.6 oz p ure alcohol) Sex and Gender Information Value Date Recorded Sex Assigned at Male 09/14/2024 12:08 PM CDT Legal Sex Male 10:00 AM CDT Gender Identity Not on file Sexual Orientation Not on file documented as of this encounter Functional Status * Calculated C-SSRS Risk Score (Lifetime/Recent) Answer Date of Assessment Author Status No Risk Indicated 11/02/2024 1:28 PM CDT Trista Crocker RN Active * [place] Suicide Severity Rating Scale (Screener/Recent Self-Report) Question Answer Date of Assessment Author Status 1. Wish to be (Past 1 Month) No 11/02/2024 1:28 PM CDT Trista Crocker RN Activ e 2. Non-Specific Active Suicidal Thoughts (Past 1 Month) No 11/02/2024 1:28 PM CDT Trista Crocker RN Activ e 6. Suicidal Behavior (Lifetime) No 11/02/2024 1:28 PM CDT Trista Crocker RN Activ e documented as of this encounter Plan of Treatment Not on file documented as of this encounter Results * URINE BACTERIA CULTURE (10/26/2024 11:20 AM CDT) SPEC DESCRIPTION URINE CLEAN CATCH 10/26/2024 11:16 AM CDT [facility] SPECIAL REQUESTS NO SPECIAL REQUEST 10/26/2024 11:16 AM CDT [facility] CULTURE RESULT NO GROWTH 2 DAYS 10/28/2024 8:49 AM CDT [facility] URINE SPECIMEN OBTAINED BY CLEAN CATCH PROCEDURE / Unknown 10/26/2024 11:20 AM CDT 10/26/2024 11:22 AM CDT us Rell Worthy MD MICROBIOLOGY - GENERAL ORDERABL ES Final Result [facility] [address] [place] [address], [place] [phone] documented in this encounter Visit Diagnoses Diagnosis Bladder cancer ([facility]/HCC [facility]/HCC)- Primary Malignant neoplasm of bladder, part unspecified documented in this encounter Care Teams Online Content Coordinator Relationship Specialty Start Date End Date Larry Morel MD [address] [address] PCP - General FAMILY PRACTICE 09/23/23 Emeli Allison MD [address] [place] [address] Physician NEUROLOGICAL SURGERY 09/23/23 Issa Montana MD [address] [facility] [address] [place] [address] HAND SURGERY 09/23/23 Shamar Freire DO [address] [place] [address] CARDIOLOGY 09/23/23 Evan Loo MD [address] [place] [address] NEUROLOGY 09/11/24 Timo Guallpa MD [address] [place] [address] NEUROLOGY 09/11/24 Oswaldo Edmonds MD [address] [place] [address] NEUROLOGY 09/11/24 documented as of this encounter
--- OUTSIDE RECORDS SUMMARY | 2024-12-08 10:39 | XMS_ITS | Clinical Summary ---
Author Organization [facility] Address [address] [place] [address] Care Team Providers Care Rust Proofer Name Role Phone Larry Morel MD Primary Care Provider [phone] Emeli Allison MD Unavailable [phone] Issa Montana MD Unavailable [phone] Shamar Freire DO Unavailable Evan Loo MD Unavailable [phone] Timo Guallpa MD Unavailable Oswaldo Edmonds MD Unavailable [phone] Allergies Active Allergy Reactions Criticality Noted Date Comments Sulfa Antibiotics Hives 09/06/2024 Sulfamethoxazole-Trimethopri m Hives Medium 04/08/2024 Unsure if caused by bactrim or pyridium Medications traMADol (ULTRAM) 50 MG tablet Take [...] the skin once a week. Takes on Wednesday, Wednesday Active atenolol (TENORMIN) 50 MG tablet Take [...] by mouth 2 (two) times daily. Active aspirin 81 MG chewable tablet Chew 1 tablet (81 mg total) by mouth daily. Active Cyanocobalamin (VITAMIN B-12) 50 MCG Tab Active Encounters Date Type Department Care Team Description 11/02/2024 1:28 PM CDT - 11/02/2024 2:37 PM CDT Surgery [facility] [place] [address] Rell Worthy MD CYSTOSCOPY WITH TRANSURETHRAL RESECTION OF BLADDER TUMOR 11/02/2024 1:21 PM CDT Anesthesia Event [facility] [place] [address] Adelaide Rogers MD Jackson, Samantha Rae, [facility] 11/02/2024 10:08 AM CDT - 11/02/2024 3:27 PM CDT Hospital Encounter [facility] [address] eRll Worthy MD Discharge Disposition: Home or Self Care (Routine Discharge) 11/02/2024 Travel 11/02/2024 Prep for [place] [address] Rell Worthy MD 10/26/2024 11:14 AM CDT - 10/26/2024 11:59 PM CDT [place] [address] Rell Worthy MD Discharge Disposition: Home or Self Care (Routine Discharge) 10/26/[address] [facility] [place] [address] [facility] Provider Preparing for surgery 11/02/24 10/25/2024 Travel 09/14/2024 8:05 PM [address] Anesthesia [place] [address] Bud Quintana MD Jarvis, Brittany L, BRAULIO 09/14/2024 12:10 PM CDT - 09/14/2024 3:13 PM CDT Hospital Encounter [place] [address] eRll Worthy MD Discharge Disposition: Home or Self Care (Routine Discharge) 09/14/2024 Travel from Last 3 Months Social History Tobacco Use Types Packs/Day Years Used Date Smoking Tobacco: Former Cigarettes 2 12 1 969 - 1980 Smokeless Tobacco: Never Tobacco Cessation:Counseling Given: [...] Sign Reading Time Taken Comments Blood Pressure 157/74 11/02/2024 3:20 PM CDT Pulse 61 11/02/2024 3:20 PM CDT Temperature 36.6 C (97.9 F) 11/02/2024 3:20 PM CDT Respiratory Rate 16 11/02/2024 3:20 PM CDT Oxygen Saturation 99% 11/02/2024 3:20 PM CDT Inhaled Oxygen Concentration - - Weight 94.3 kg (207 lb 14.3 oz) 025 12:30 PM CDT Height 185.4 cm (6' 1) 11/02/2024 12:3 0 PM CDT Body Mass Index 27.43 11/02/2024 12:30 PM CDT Plan of Treatment Health Maintenance Due Date Last Done Comments Colorectal Cancer Screening Colonoscopy (10 Years) 1950 Hepatitis C 1967 DTaP, Tdap and Td Vaccines ( 1 - Tdap) 1968 Pneumococcal Vaccine: 50+ Ye ars (1 of 1 - PCV) 1999 Zoster Vaccines (2 of 3) 06/13/2012 04/18/2012 Annual Medicare Wellness Visit 2014 COVID-19 Vaccine ( - 2023-2 5 season) 2024 RSV Immunization or 60+ Years (1 - [...] on patient's age to complete this topic Procedures Procedure Name Priority Date/Time Associated Diagnosis Comments POCT GLUCOSE - DOCKED DEVICE Routine 11/02/2024 2:01 PM CDT CYSTOURETHROSCOP Y,FULGUR .5-2CM LESN 11/02/2024 1:21 PM CDT CARCINOMA IN SITU OF BLADDER; 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 GLUCOSE POC 111(H) 70 - 99 mg/dL 11/02/2024 2:37 PM CDT [facility] 11/02/2024 2:01 PM CDT Rell Worthy MD POCT ORDERABLES - DEVICE Final Result [facility] [address] [place] [address], * Pathology (11/02/2024 12:00 AM CDT) PATHOLOGY [facility] Department of Laboratory Medicine [address] [place] [address] , extension [phone] Pathology Report Surgical Pathology Report Name: ROSCOE SUTHERLAND SR. 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 - No in situ or invasive carcinoma is identified. Diagnosis Comment: CAM5.2 immunostain highlights few foci of urothelium with reactive changes. No in situ or invasive carcinoma is identified. Gross Description: Received in formalin, labeled with a patient label and as bladder tumor are multiple pieces of disrupted tomlinson tissue that are 1.5 x 1.5 x 0.3 cm in aggregate. The specimen is entirely submitted in cassette 1. Gross examination (when applicable), interpretation, and sign out were performed at [facility], [address] [place] [address]. All immunohistochemical and histochemical tests were developed by and performed at [facility], [address] [place] [address]. All tests reported here have not been cleared or approved by the U.S. Food and Drug Administration (FDA). This laboratory is regulated under CLIA as qualified to perform high-complexity testing. These tests are used for clinical purposes. They should not be regarded as investigational or for research. Positive and negative controls show appropriate reactivity. Electronically Signed Out BRITTNEY ZIMMER MD [facility] TISSUE URINARY BLADDER STRUCTURE / Unknown 11/02/2024 1:10 PM CDT us Rell Worthy MD PATHOLOGY/CYTOLOGY ORDERABLES F inal Result [facility] [address] [place] [address], [id number] * URINE BACTERIA CULTURE (10/26/2024 11:20 AM CDT) SPEC DESCRIPTION URINE CLEAN CATCH 10/26/2024 11:16 AM CDT [facility] SPECIAL REQUESTS NO SPECIAL REQUEST 10/26/2024 11:16 AM CDT [facility] CULTURE RESULT NO GROWTH 2 DAYS 10/28/2024 8:49 AM CDT [facility] URINE SPECIMEN OBTAINED BY CLEAN CATCH PROCEDURE / Unknown 10/26/2024 11:20 AM CDT 10/26/2024 11:22 AM CDT Rell Worthy MD MICROBIOLOGY - GENERAL ORDERABL ES Final Result [facility] [address] [place] [address], from Last 3 Months Insurance MEDICARE [facility] Care Teams Rust Proofer Relationship Specialty Start Date End Date Larry Morel MD [address] [address] PCP - General FAMILY PRACTICE 09/23/23 Emeli Allison MD [address] [facility] [address] [place] [address] Physician NEUROLOGICAL SURGERY 09/23/23 Issa Montana MD [address] [facility] [address] [place] [address] HAND SURGERY 09/23/23 Shamar Freire DO [address] [facility] [address] [place] [address] CARDIOLOGY 09/23/23 Evan Loo MD [address] [facility] [address] [place] [address] NEUROLOGY 09/11/24 Timo Guallpa MD [address] [place] [address] NEUROLOGY 09/11/24 Oswaldo Edmonds MD [address] [place] [address] NEUROLOGY 09/11/24
--- OUTSIDE RECORDS SUMMARY | 2024-12-08 10:39 | XMS_ITS | Encounter Summary ---
Author Organization [facility] Address [address] [place] [address] Care Team Providers Care Warehouse Examiner Name Role Phone Pantera Bolivar MD Primary Care Provider [phone] Encounter Details Date Type Department Care Team (Late st Contact Info) Description 09/14/2000 Outpatient [facility] [address] [facility] [address] 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 [address] [place] [address] PCP - General 05/02/15 documented as of this encounter
--- OUTSIDE RECORDS SUMMARY | 2024-12-08 10:39 | XMS_ITS ---
Author Organization [facility] Address [address] [address] Care Team Providers Care Investor Relations Associate Name Role Phone Larry Morel Primary Care Provider Noam Gar Unavailable [phone] REASON FOR VISIT Lab Results Encounters Encounter Location Date Provider Diagnosis [facility] [address] [facility] [address], [place] [address] 11/15/2024 Noam Horn Anemia D64.9 ASSESSMENTS Encounter Date Diagnosis Assessment Notes Treatment Notes Treatment Clinical Notes Section Notes 11/15/2024 Anemia (ICD-10 - D64.9) PLAN OF TREATMENT Future Test Test Name Order Date CBC (INCLUDES DIFF/PLT) 12/05/2024 FERRITIN 12/05/2024 Next Appt Details Provider Name:Noam Horn, 03/01/2025 10:15:00 AM, [address], [address],
--- OUTSIDE RECORDS SUMMARY | 2024-12-08 10:39 | XMS_ITS | Encounter Summary ---
Author Organization [facility] Address 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 DIRECTOR Gender Identity Male 09/13/2024 10:33 AM CDT [...] AM CDT Narrative 09/20/2007 12:10 PM CDT [address] [address] Admit Date: 09/20/2007 GIL PÉREZ Sex: M Admit Prov: ANICETO RAMIREZ Date: 1950 Primary Care Prov: REBEKAH WOODS CMRN: [id number] [facility]: [id number] IMAGING SERVICES Ordering Prov: N/A Accession Number: [id number] Interpretation MRI LUMBAR SPINE WITHOUT AND WITH [...] 11:11 Procedure Note Cee Pruett - 09/20/[address] [address] Admit Date: 09/20/2007 GIL PÉREZ Sex: M Admit Prov: ANICETO RAMIREZ Date:1950 Primary Care Prov: REBEKAH WOODS CMRN: [id number] Room: [facility] SSN: [id number] IMAGING SERVICES Ordering Prov: N/A Interpretation MRI LUMBAR SPINE WITHOUT AND WITH IV CONTRAST 09/20/07 History: Bilateral leg pain and numbness, prior L5-S1 surgery [id number]. Lumbar sequences were performed, but are somewhat [...] unspecified documented in this encounter Care Teams Clinical Safety Specialist Relationship Specialty Start Date End Date Rebekah Woods MD [address] [place] [address] [place] [address] PCP - General 05/02/15 documented as of this encounter
--- OUTSIDE RECORDS SUMMARY | 2024-12-08 10:40 | XMS_ITS | Clinical Summary ---
Author Organization [facility] Address [address] [place] [address] Phone Care Team Providers Care Administrative Assistant Receptionist Name Role Phone Larry Morel MD Primary Care Provider [phone] Allergies No known active allergies Medications atenolol [...] solution pen-injector 06/09/2021 Active TRUEplus 5-Bevel Pen Adkins 31G X 8 MM misc USE FIVE [...] on file Legal Sex Male 8:47 AM [facility] Gender Identity Not on file [...] 1:49 PM CDT Height 185.4 cm (6' 1) 12/15/2021 1:49 PM CDT Body Mass Index 31.4 12/15/2021 1:49 PM CDT Plan of Treatment Health Maintenance Due Date Last Done Comments Pneumococcal PPSV23/PCV13 65 + Years / Low and Medium Risk (1 of 2 - PCV) 1999 Influenza Vaccine (#1) 2025 Insurance MEDICARE [facility] [employer] Care Teams Administrative Assistant Receptionist Relationship Specialty Start Date End Date Larry Morel MD [address] [place] [phone] PCP - General Family Medicine 04/28/21
--- OUTSIDE RECORDS SUMMARY | 2024-12-08 10:40 | XMS_ITS | Referral Summary ---
Author Organization [facility] Address [address] [place] [address] Care Team Providers Care Learning Analyst Name Role Phone Larry Morel MD Primary Care Provider [phone] Noam Horn MD Unavailable [phone] Hao Perez MD Unavailable [phone] Encounters Date Type Department Care Team Description 11/28/2024 9:30 AM CDT Office Visit [facility] Orthopaedic Surgery [address] [facility] 6th [place] [address] [place] [address] Issa Montana MD Arthritis of carpometacarpal (CMC) joint of left thumb (Primary Dx); Arthritis, degenerative, localized, primary, hand, left 10/04/2024 12:30 PM CDT - 10/04/2024 1:45 PM CDT Surgery [facility] Operating Room [address] [place] [phone] Rell Worthy MD Cystoscopy 10/04/2024 1:29 PM CDT Anesthesia Event [facility] Operating Room [address] [place] [phone] Tonny Stafford DO Eubanks, Marianna, CRNA 10/04/2024 10:19 AM CDT - 10/04/2024 4:10 PM CDT Hospital Encounter [facility] Operating Room [address] [place] [phone] Rell Worthy MD Gross hematuria Discharge Disposition: Discharge to home or self care 10/03/2024 12:00 PM CDT Pre-Admission Testing [facility] Pre Anesthesia Testing [address] [place] [phone] 10/02/2024 Telephone [facility] Pre Anesthesia Testing [address] [place] [phone] Marium Morse from Last 3 Months Allergies Active Allergy Reactions Criticality Noted Date Comments Sulfamethoxazole-Trimethoprim Hives Medium 2023 Unsure if caused by bactrim or pyridium Phenazopyridine Hives Medium 04/08/2024 Patient states he is unsure if he got hives from Pyridium or Bactrim. Sulfa (Sulfonamide Antibiotics) Hives Medium 09/06/2024 Medications traMADol (ULTRAM) 50 mg tablet Take [...] as needed (port access) 4 Active insulin glargine 100 unit/mL vial for injection Inject 85 Units under the skin nightly Active aspirin 81 mg enteric coated tablet Take 1 tablet (81 mg total) by mouth every morning Active rosuvastatin (CRESTOR) 20 mg tablet Take 1 tablet (20 mg total) by mouth nightly 30 tablet 5 08/07/19 26 Active tamsulosin (FLOMAX) 0.4 mg extended release capsule TAKE 1 CAPSULE BY MOUTH DAILY FOR 14 DAYS 5 Active LANTUS 100 unit/mL (3 mL) pen for injection INJECT 45 UNITS UNDER THE SKIN IN THE MORNING AND 85 UNITS IN THE EVENING DAILY 5 Active HumaLOG 100 unit/mL pen for injection INJECT PER MODERATE DOSE SLIDING SCALE THREE TIMES DAILY. MAX DAILY DOSE 50 UNITS 5 Active insulin lispro (HumaLOG, ADMELOG) 100 unit/mL vial for injection Inject under the skin 3 (three) times a day before meals Per sliding scale 11/29/19 25 Discontin ued(Dupli matt order) insulin glargine 100 unit/mL vial for injection Inject 45 Units under the skin every morning 11/29/19 25 Discontin ued(Dupli matt order) Hospital, Clinic, or Other Facility Administered Medication Ordered Dose Route Frequency Start Date End Date Status lidocaine (XYLOCAINE) 10 mg/mL (1 %) injection 1 mLIndications:Adminis tration of Local Anesthesia 1 mL One-Time Injection 11/28/2024 5 Ended methylPREDNISolone acetate (DEPO-medrol) injection 40 mgIndications:Arthrit is of carpometacarpal (CMC) joint of left thumb 40 mg intra-artic One-Time Injection 11/28/2024 5 Ended lidocaine (XYLOCAINE) 10 mg/mL (1 %) injection 1 mLIndications:Adminis tration of Local Anesthesia 1 mL One-Time Injection 11/28/2024 5 Ended methylPREDNISolone acetate (DEPO-medrol) injection 40 mgIndications:Arthrit is, degenerative, localized, primary, hand, left 40 mg intra-artic One-Time Injection 11/28/2024 5 Ended Active Problems Problem Noted Date Diagnosed Date [...] (07/29/2020): Added automatically from request for surgery [id number] 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 07/29/2020 Overview (07/29/2020): Added automatically from request for surgery [id number] Immunizations Immunization Administration Dates Next Due Influenza, [...] on file Legal Sex Male 10:29 AM PRODUCTION GRIP Gender Identity Not on file Sexual Orientation [...] Concentration - - Weight 95.3 kg (210 lb) 11/28/2024 9:49 AM CDT Height 185.4 cm (6' 1) 11/28/2024 9:49 AM CDT Body Mass Index 27.71 11/28/2024 9:49 AM CDT Plan of Treatment Not on file Medical Devices Implanted Type Area Sheet Metal Smith Device Identifier Shelf Expiration Date Model / Serial / Lot [employer] Ar-8978-Cp Internalbrace Kit Hand Wrist Set Implant Ligament Augmentation - [id number] Implanted:Qty: 1 on 08/14/2020 by Issa Montana MD at [facility] Right: Thumb [employer] [id number] 06/16/2025 AR-8978-C P / / [id number] Small [employer] Mcp-50 Mcp 50 Joint Finger Silicone Ii Sterile Latex Free - [id number] Implanted:Qty: 1 on 08/14/2020 by Issa Montana MD at [facility] Medicine Right: Index Finger [employer] [id number] 01/14/2023 MCP-50 / / [id number] Procedures Procedure Name Priority Date/Time Associated Diagnosis Comments NC ARTHROCENTESIS ASPIR&/INJ SMALL JT/BURSA W/O US Routine 11/28/2024 9:30 AM CDT Arthritis, degenerative, localized, primary, hand, left NC ARTHROCENTESIS ASPIR&/INJ SMALL JT/BURSA W/O US Routine 11/28/2024 9:30 AM CDT Arthritis of carpometacarpal (CMC) joint of left thumb POCT GLUCOSE DEVICE Routine 10/04/2024 2 :19 PM CDT SURGICAL PATHOLOGY Routine 10/04/2024 1: 54 PM CDT Gross hematuria NC AN PROCEDURE PLACEHOLDER Routine 10/04/2024 1:40 PM CDT NC AN ELECTIVE SUPRAGLOTTIC AIRWAY Routine 10/04/2024 1:40 PM CDT BIOPSY BLADDER - CYSTOSCOPY 10/04/2024 1:30 PM CDT Gross hematuria CYSTOSCOPY CLOT EVACUATION 10/04/2024 1:30 PM CDT Gross hematuria POCT GLUCOSE DEVICE Routine 10/04/2024 1 1:08 AM CDT EGFR Routine 08/05/2024 6:10 AM CDT HEMOGLOBIN A1C Routine 08/05/2024 6:10 AM CDT LIPID PANEL Routine 08/05/2024 6:10 AM CDT from Last 3 Months or Most Recently Relevant to Health Maintenance Results * NC ARTHROCENTESIS ASPIR&/INJ SMALL JT/BURSA W/O US (11/28/2024 9:30 AM CDT) Narrative Issa Montana MD - 11/28/2024 9:30 AM CDT Issa Montana MD 11/28/2024 10:38 AM Small Joint Injection: L index MCP [...] MD IN CLINIC/BEDSIDE ORDERABLES Final Result * NC ARTHROCENTESIS ASPIR&/INJ SMALL JT/BURSA W/O US (11/28/2024 9:30 AM CDT) Narrative Issa Montana MD - 11/28/2024 9:30 AM CDT Issa Montana MD 11/28/2024 10:38 AM Small Joint Injection: L thumb CMC [...] MD IN CLINIC/BEDSIDE ORDERABLES Final Result * POCT glucose (10/04/2024 2:19 PM CDT) Glucose, POC 127 70 - 199 mg/dL Comment: For Glucose values <35 mg/dl when Hematocrit is >60 mg/dl,the test may not accurately detect significant hypoglycemia,and testing in the Laboratory should be considered if clinically indicated. POC Performer [id number] [facility] Blood 10/04/2024 2:19 PM CDT 10/04/2024 2:19 PM CDT us Rell oWrthy MD LAB POCT ORDERABLES - DEVICE F inal Result [facility] [address] Department [place] [address] * Surgical pathology (10/04/2024 1:54 PM CDT) Tissue (Mass/Tumor/Lesio n) 10/04/2024 1:54 PM CDT Comment:Placed in Formalin a t end of procedure Narrative PATHOLOGY [facility] - 10/10/2024 3:15 PM CDT [address] [address] Tele: Marine Diaz MD - Civil Structural Engineer Note to Patients: This report may contain a detailed description of human tissue sent by a health care provider to the laboratory for pathologic evaluation. The content of this report is essential for diagnosis and may provide important critical findings. This information may be unfamiliar to patients to review without a medical professional present. It is advised that the patient review this report in the presence of a health care provider who can answer questions and explain the details. SURGICAL PATHOLOGY REPORT Patient Name: ROSCOE PÉREZ SR. Address: [address] [place] [address] Gender: M : 1950 (Age: 74) Service: Surgery Location: [facility] [place], Hospital #: [id number] Patient Type: [facility] SAME DAY SURGERY Taken: 10/04/2024 Received 10/04/2024 Reported: 10/10/2024 Physician(s): Rell Worthy M.D. Larry Gail Robb M.D. DIAGNOSIS: Urinary bladder, tumor, transurethral resection: - Invasive high-grade urothelial carcinoma - Tumor invades at least lamina propria - Suspicious for lymphovascular space invasion - Scant muscularis propria appears uninvolved by tumor as/10/06/2024 12:06 Examining Pathologist: Mahad Johnson M.D. Report Reviewed and Electronically Signed By Mahad Johnson M.D. SPECIMEN TYPE: A: BLADDER TUMOR CLINICAL IMPRESSION AND HISTORY: Gross hematuria GROSS DESCRIPTION: Received in formalin in a single container with the patient's name, ROSCOE PÉREZ labeled bladder tumor and contains multiple pink-tomlinson irregular tissue fragments measuring 2.2 x 1.5 x 0.2 cm in aggregate. Due to the color and size of the specimen, eosin is used. The specimen is filtered and submitted entirely in cassette A1. GEOFFREY REYES MICROSCOPIC DESCRIPTION: Histologic sections contain multiple disrupted/cauterized and inflamed tissue fragments notable for infiltrative high-grade tumor. No definitive lymphovascular space invasion is evident. There is scant portion of muscularis propria present. Tumor comes close to disrupted/cauterized and inflamed portion of muscularis propria, but no definitive muscularis propria invasion is evident, supported by desmin and DEZ-3 immunostains. Additional level is examined. Clerical Data Follows A; [id number], [id number], [id number] REPORT IMAGES AND/OR SCANNED DOCUMENTS ONLY VIEWABLE IN PDF FORMAT The immunohistochemical test(s) cited in this report, if any, was developed and its performance characteristics determined by [facility] Pathology Department. It has not been cleared or approved by the U.S. Food and Drug Administration. The FDA has determined that such clearance or approval is not necessary. This test is used for clinical purposes. It should not be regarded as investigational or for research. [facility] Laboratory is certified under the Clinical Laboratory Improvement Amendments of 1988 (CLIA) as qualified to perform high complexity testing. Immunostains were performed on formalin-fixed paraffin embedded tissue using a polymer diaminobenzidine chromogen detection system. Antibodies used may include clone SP1 (rabbit monoclonal, estrogen receptor), clone 1E2 (rabbit monoclonal progesterone receptor), Ki-67 (rabbit monoclonal, 30-9), CD117 (rabbit polyclonal, c-kit), and anti-Her-2/syeda (4B5) (rabbit monoclonal primary antibody). In the event that immunohistochemistry or special stains have been performed, attending physician has confirmed appropriateness of controls. Frozen section, operating room consultation, gross examination and dissection, and case sign out may have been performed in part or completely in the following laboratories: [facility], [facility], [place], [place] [address] [place] [address], [address] [place] [address]. Rell Worthy MD LAB PATHOLOGY ORDERABLES Final Result PATHOLOGY [facility] Laboratory Receiving [address] [place], [place] [id number] [phone] * NC AN ELECTIVE SUPRAGLOTTIC AIRWAY, NC AN PROCEDURE PLACEHOLDER (10/04/2024 1:40 PM CDT) Narrative Janae Campo CRNA - 10/04/2024 1:40 PM CDT Janae Campo CRNA 10/04/2024 1:41 PM Airway Patient location: OR Urgency: elective Indications for airway management: anesthesia Difficult airway: no Staff: Supervising provider: Tonny Stafford DO Placed by: TAX SENIOR ASSOCIATE: Janae Campo CRNA Emergent airway documentation: Risks and benefits discussed: yes Consent obtained: yes Consent given by: patient Airway prep: Preoxygenated: yes Patient position: sniffing Mask difficulty assessment: 0 - not attempted Sedation level during airway: GA Final airway details: Final airway type: supraglottic airway Final supraglottic airway: Robinhood SGA size: 5 Number of attempts: 1 Additional comments: Atraumatic. Lips, teeth, tongue, mouth same as perop. Head and neck nuetral Tonny Stafford DO ANESTHESIA ORDERABLES Final Result * POCT glucose (10/04/2024 11:08 AM CDT) Pathologist [facility] Glucose, POC 182 70 - 199 mg/dL Comment: For Glucose values <35 mg/dl when Hematocrit is >60 mg/dl,the test may not accurately detect significant hypoglycemia,and testing in the Laboratory should be considered if clinically indicated. POC Performer [id number] ROS [facility] Blood 10/04/2024 11:0 8 AM CDT 10/04/2024 11:08 AM CDT Rell Worthy MD LAB POCT ORDERABLES - DEVICE F inal Result [facility] [address] Department [place] [address] * eGFR (08/05/2024 6:10 AM CDT) Pathologist [facility] eGFR 85 >=60 mL/min/1. 73 m2 Comment: [...] ORDERABLES Final Resul t Performing Organization Address City/[facility] Co de Phone Number [facility] [address] Department [place] [address] * (ABNORMAL) Hemoglobin A1c (08/05/2024 6:10 AM CDT) Hgb A1C 7.1(H) 4.0 - 5.6 % Estimated Average Glucose 157 mg/dL [facility] Comment: The ADA recommends reporting an estimated Average Glucose (eAG) with all Hemoglobin A1c results using the equation derived from a study of 507 normal and diabetic adults. Minority populations were underrepresented and children were not included. (Diabetes Care 31:7339-7030, 2008). The eAG is not equivalent to a fasting glucose. Blood 08/05/2024 6:10 AM CDT 08/05/2024 6:45 AM CDT Shellie Roldan MD LAB BLOOD ORDERABLES Final Resul t [facility] [address] Department [place] [address] * Lipid panel (08/05/2024 6:10 AM CDT) [...] Triglycerides 65 <=149 mg/dL [facility] Comment: Interpretive Data Ages < or = [...] HDL 42 >=40 mg/dL [facility] Comment: Interpretive Data Ages < or = [...] calculated 56 <=129 mg/dL [facility] Comment: Interpretive Data Ages < or = [...] NCEP Expert Panel. Circulation 2004;110:227 3. Lowell M et al. JONATHAN Cardiol. 2020 September 14;5(5):540-548. doi: 10.1001/jamacardio.2020.0013 Current Interpretive Data was last revised on 2024. Non-HDL Cholesterol 70 mg/dL [facility] Comment: Interpretive Data Ages < or = [...] 2018. Chol/HDL ratio 3 [facility] Blood 08/05/2024 6:10 AM CDT 08/05/2024 6:45 AM CDT us Shellie Roldan MD LAB BLOOD ORDERABLES Final Resul t [facility] [address] Department [place] [address] from Last 3 Months or Most Recently Relevant to Health Maintenance Insurance MEDICARE [employer] MEDICARE SUPPLEMENT MEDICARE [facility] MEDICARE [facility] MEDICARE SUPPLEMENT Advance Directives For more information, please contact: [phone] * Full Code (Latest Code Status on File) Date Activated Date Inactivated Comments 08/05/2024 12:34 AM 08/06/2024 7:16 PM Care Teams Learning Analyst Relationship Specialty Start Date End Date Larry Morel MD PCP - General Family Medicine 12/05/19 Noam Horn MD [address] [place] [id number] Referring Physician Endocrinology Diabetes & Metabolism 07/29/20 Hao Perez MD [address] [place] [address] Referring Physician Ophthalmology 07/29/20
--- OUTSIDE RECORDS SUMMARY | 2024-12-08 10:40 | XMS_ITS ---
Author Organization [facility] Address [address] [facility] [address], [place] [address] Care Team Providers Care Foreman/Pile Driving And Erection Name Role Phone Larry Morel Primary Care Provider Noam Gar Unavailable [phone] ALLERGIES No Known Allergies RESULTS Component Value Reference Range Notes Hemoglobin A1c (In-House) Reviewed date:11/15/2024 03:26:55 PM Interpretation: Performing Lab: Notes/Report: Hemoglobin A1c 8.2% 4.0 - 6.0 % CBC With Differential/Platel et Reviewed date:11/15/2024 11:41:41 PM Interpretation: Performing Lab:[facility] [place], [address] [facility], Phone - [phone], Director - PhDRicchiuti Notes/Report: WBC 7.2 3.4-10.8 x10E3/uL RBC 4.17 4.14-5.80 x10E6/uL Hemoglobin 12.4 13.0-17.7 g/dL Hematocrit 41.6 37.5-51.0 % MCV 100 79-97 fL MCH 29.7 26.6-33.0 pg MCHC 29.8 31.5-35.7 g/dL RDW 14.2 11.6-15.4 % Platelets 312 150-450 x10E3/uL Neutrophils 54 Not Estab. % Lymphs 22 Not Estab. % Monocytes 10 Not Estab. % Eos 11 Not Estab. % Basos 2 Not Estab. % Immature Cells Neutrophils (Absolute) 4.0 1.4-7.0 x10E3/uL Lymphs (Absolute) 1.6 0.7-3.1 x10E3/uL Monocytes(Absolute) 0.7 0.1-0.9 x10E3/uL Eos (Absolute) 0.8 0.0-0.4 x10E3/uL Baso (Absolute) 0.1 0.0-0.2 x10E3/uL Immature Granulocytes 1 Not Estab. % Immature Grans (Abs) 0.1 0.0-0.1 x10E3/uL NRBC Hematology Comments: Comp Metabolic Panel (14) Reviewed date:11/15/2024 03:28:23 PM Interpretation: Performing Lab:[facility] [place], [address] [facility], [place], Phone - [phone], Director - Ja Notes/Report: Glucose 198 70-99 mg/dL BUN 15 8-27 mg/dL Creatinine 1.04 0.76-1.27 mg/dL eGFR 75 >59 mL/min/1.73 BUN/Creatinine Ratio 14 10-24 Sodium 138 134-144 mmol/L Potassium 4.5 3.5-5.2 mmol/L Chloride 103 96-106 mmol/L Carbon Dioxide, Total 20 20-29 mmol/L Calcium 9.8 8.6-10.2 mg/dL Protein, Total 6.4 6.0-8.5 g/dL Albumin 4.3 3.8-4.8 g/dL Globulin, Total 2.1 1.5-4.5 g/dL Bilirubin, Total 0.3 0.0-1.2 mg/dL Alkaline Phosphatase 75 44-121 IU/L AST (SGOT) 28 0-40 IU/L ALT (SGPT) 20 0-44 IU/L Vitamin D, 25-Hydroxy (In-Ho use) Reviewed date:11/15/2024 03:26:43 PM Interpretation: Performing Lab: Notes/Report: Vitamin D, 25-Hydroxy (in house) 60.4 30 - 100 ng/mL Vitamin B12 (In-House) Reviewed date:11/15/2024 03:26:24 PM Interpretation: Performing Lab: Notes/Report: Vitamin B12 (In-House) 530 180 - 914 pg/mL Thyroid Profile (In-House) ( TSH3+TT3+FT4) Reviewed date:11/15/2024 03:26:33 PM Interpretation: Performing Lab: Notes/Report: TSH3 2.07 0.45 - 5.33 uIU/mL TT3 0.88 0.62 - 1.62 ng/mL FT4 1.28 0.62 - 1.58 ng/dL REASON FOR VISIT Type II DM, hypothyroid MEDICATIONS Medication SIG (Take, Route, Frequency, Duration) Notes Start Date End Date Status Omeprazole 20 MG 1 capsule Orally Onc e a day for 90 days Active Rosuvastatin Calcium 10 MG 1 tablet Orally Once a day Active Atenolol 50 MG 1 tablet Orally Once a day Active Fenofibrate Micronized 200 MG TAKE 1 CAPSULE BY MOUTH ONCE A DAY Active Accu-Chek SmartView - DXCODE: E11.65, ID DM) Use 1 Test Strip In Vitro Three Times a Day for 90 days Active Vitamin B-12 1000 MCG 1 tablet Orally Once a day 0 01/27/2019 Active Gabapentin 300 MG 1 Capsule Orally Two Times a Day Active Eliquis 5 MG 1 tablet Orally Twic e a day 07/21/2023 Active TRUEplus Pen Sheffield 31G X 8 MM USE DIRECTED 5 TIMES A DAY for 90 Active HumaLOG KwikPen 100 UNIT/ML per moderate dose sliding scale Subcutaneous three times a day max Daily Dose 50 Units for 90 days Active Ozempic (1 MG/DOSE) 4 MG/3ML inject 1 mg under the skin once a week for 84 days Active Lantus SoloStar 100 UNIT/ML inject 45 units in the morning and 85 units in the evening under the skin daily for 90 days Active metFORMIN HCl ER 500 MG 2 tablets Orally Two Times a Day for 90 days Active Accu-Chek FastClix Lancets - DXCODE: E11.65, IDDM) Use 1 Lancet Subcutaneously Three Times a Day Active Dexcom G7 Vat Operator - as directed Active Celecoxib 200 MG TAKE ONE CAPSULE BY MOUTH WITH FOOD NEEDED Orally Three Times a Day Active Dexcom G7 Sensor - as directed Active Complete Multi-Vitamin Orally Once a Day Active Levothyroxine Sodium 175 MCG 1 tablet in the morning on an empty stomach Orally Once a day for 30 days Active VITAL SIGNS BMI 27.44 kg/m2 11/14/2024 Blood pressure systolic 130 mm Hg 11/15/19 25 Blood pressure diastolic 70 mm Hg 025 Heart Rate 84 /min 11/14/2024 Height 73 in 11/14/2024 Weight 208.0 lbs 11/14/2024 Encounters Encounter Location Date Provider Diagnosis [facility] [address] [address] 11/14/2024 Noam Horn Type 2 diabetes mellitus with [...] group vitamins E53.8 and Kidney stone N20.0 ASSESSMENTS Encounter Date Diagnosis Assessment Notes Treatment Notes Treatment Clinical Notes Section Notes 11/14/2024 Type 2 diabetes mellitus with hyperglycemia (ICD-10 - E11.65) 11/14/2024 Peripheral neuropathy (ICD-10 - G62.9) 11/14/2024 Unspecified hypothyroidism (ICD-10 - E03.9) 11/14/2024 Benign hypertension (ICD-10 - I10) 11/14/2024 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 Noam alfonso dictates using [employer] Speaking software. Stonemason Supervisor variances may occur. Since our last visit the patient has followed up closely with his urologist for bladder cancer. Blood pressure and weight remain stable. We reviewed all his medications. We reviewed his prior lab work. We reviewed CGM data. The average reading is 192 mg/dL. Time in range is 38%. Time above range is 62%. Estimated GMI of 7.9%. We agreed to continue the current treatment for diabetes, hypothyroidism, hypertension, hyperlipidemia and neuropathy. He remains anticoagulated. He remains on B12 supplementation. I will repeat complete battery of tests. He will continue following up with all of his providers as indicated will see him again in 3 months for follow-up or sooner if needed PLAN OF TREATMENT Medication Medication Name Sig Start Date Stop Date Notes Rosuvastatin Calcium 10 MG 1 tablet Orally Once a day Atenolol 50 MG 1 tablet Orally Once a day Fenofibrate Micronized 200 MG TAKE 1 CAP AMY BY MOUTH ONCE A DAY Vitamin B-12 1000 MCG 1 tablet Orally Once a day 9 Gabapentin 300 MG 1 Capsule Orally Two Times a Day Eliquis 5 MG 1 tablet Orally Twice a day 07/21/2023 TRUEplus Pen Sheffield 31G X 8 MM USE DIRECTED 5 TIMES A DAY for 90 HumaLOG KwikPen 100 UNIT/ML per moderate dose sliding scale Subcutaneous three times a day max Daily Dose 50 Units for 90 days Ozempic (1 MG/DOSE) 4 MG/3ML inject 1 mg under the skin once a week for 84 days Lantus SoloStar 100 UNIT/ML inject 45 un its in the morning and 85 units in the evening under the skin daily for 90 days metFORMIN HCl ER 500 MG 2 tablets Orally Two Times a Day for 90 days Levothyroxine Sodium 175 MCG 1 tablet in the morning on an empty stomach Orally Once a day for 30 days Treatment Notes Assessment Notes Other Dr. Noam mckeon using [employer] Speaking software. Stonemason Supervisor variances may occur. Since our last visit the patient has followed up closely with his urologist for bladder cancer. Blood pressure and weight remain stable. We reviewed all his medications. We reviewed his prior lab work. We reviewed CGM data. The average reading is 192 mg/dL. Time in range is 38%. Time above range is 62%. Estimated GMI of 7.9%. We agreed to continue the current treatment for diabetes, hypothyroidism, hypertension, hyperlipidemia and neuropathy. He remains anticoagulated. He remains on B12 supplementation. I will repeat complete battery of tests. He will continue following up with all of his providers as indicated will see him again in 3 months for follow-up or sooner if needed Next Appt Details Follow Up: 3 Months, Reason: Provider Name:Noam Horn, 03/01/2025 10:15:00 AM, [address], [place], [address], Progress Notes * Examination Category Sub-Category Detail Notes Category Not es General Examination GENERAL APPEARANCE: in no ac iqugmiut distress, well developed, obese HEAD: normocephalic, atrau matic EYES: pupils equal, round, reactive to light and accommodation NECK: neck supple, full ra nge of motion, no cervical lymphadenopathy, No carotid bruit, bilaterally HEART: S1, S2 regular rate and rhythm, no audible murmurs LUNGS: clear to auscultatio n bilaterally, respirations nonlabored ABDOMEN: normal NEUROLOGIC: alert and oriented. SKIN: warm and moist with no evidence of rash or jaundice EXTREMITIES: no edema, no deformi ty, dorsalis pedis pulses are 2+ bilaterally, overgrown toenails THYROID The thyroid is palpa ble and nontender. There are no palpable thyroid nodules History and Physical Notes * HPI (History of Present Illness) Category Sub-Category Detail Notes Category Not es Interim History Last Dilated Eye exam Date: 10/2024 FLU: 2023 PNEUMONIA: No COLONOSCOPY: 2007 COVID SHOT: 2/2 & Booster Opthamologist Dr. Kim Diabetes mellitus The patient is being seen for Diabet es type II, The patient was diagnosed wi th diabetes in 2001 Complications from diabetes include cere bral vascular accident, mild proteinuria The current diabetes medicat ion(s) regimen consists of see specific dosage in current medicatio ns section The last HbA1C was :: 7.6 % (06/29/2024 ) The patient has been monitor ing their blood sugars Yes, 3-4 times a day The patient has had recent m ultiple hypoglycemic episode no The patient uses an insulin pump no The patient uses a CGMS (Con t Glucose Monitoring Device) yes- Dexcom G6 Hypothyroidism The most recent Thyr oid function tests include TSH: 0.41, TT3: 1.04, FT4:?1.08 (12/02/2023) Medication(s) include Synthroid
--- OUTSIDE RECORDS SUMMARY | 2024-12-08 10:40 | XMS_ITS | Clinical Summary ---
Author Organization 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 07/29/2020 Overview (07/29/2020): Added automatically from request for surgery [id number] Encounters Date Type Department Care Team Description 11/28/2024 9:30 AM CDT Office Visit [facility] Orthopaedic Surgery [address] [facility] 6[address] [place] [address] [place] [address] Issa Montana MD Arthritis of carpometacarpal (CMC) joint of left thumb (Primary Dx); Arthritis, degenerative, localized, primary, hand, left 10/04/2024 1:29 PM CDT Anesthesia Event [facility] Operating Room [address] [place] [address] [phone] Tonny Stafford DO Eubanks, Marianna, CRNA 10/04/2024 12:30 PM CDT - 10/04/2024 1:45 PM CDT Surgery [facility] Operating Room [address] [place] [address] [phone] Rell Worthy MD Cystoscopy 10/04/2024 10:19 AM CDT - 10/04/2024 4:10 PM CDT Hospital Encounter [facility] Operating Room [address] [place] [address] [phone] Rell Worthy MD Gross hematuria Discharge Disposition: Discharge to home or self care 10/03/2024 12:00 PM CDT Pre-Admission Testing [facility] Pre Anesthesia Testing [address] [place] [address] [phone] 10/02/2024 Telephone [facility] Pre Anesthesia Testing [address] [place] [address] [phone] Marium Morse from Last 3 Months Immunizations Immunization Administration [...] history of malignant neoplasm - (Added by Conv) Arthritis Mother Family history of arthritis - (Added by TW Conv) Hypertension Mother Family history of hypertension - (Added by Conv) Anesthesia problems Neg Hx Relation Name [...] on file Legal Sex Male 10:29 AM BAR TURNER Gender Identity Not on file Sexual Orientation [...] 11/28/2024 9:49 AM CDT Plan of Treatment Health Maintenance [...] 2014 Well Visit 65+ 2014 Influenza Vaccine (#1) 2025 02/06/2014 Hemoglobin A1C 02/05/2025 08/05/2024 Depression Screening 08/04/2025 08/04/2024 Lipid Panel 08/05/2025 08/05/2024 eGFR 08/05/2025 08/05/2024, 08/04/2024 Fall Risk Assessment 10/04/2025 10/04/2024 Medical Devices Implanted Type Area Shop Laborer Device Identifier Shelf Expiration Date Model / Serial / Lot [employer] Ar-8978-Cp Internalbrace Kit Hand Wrist Set Implant Ligament Augmentation - [id number] Implanted:Qty: 1 on 08/14/2020 by Issa Montana MD at [facility] Right: Thumb [employer] [id number] 06/16/2025 AR-8978-C P / / [id number] [employer] Mcp-50 Mcp 50 Joint Finger Silicone Ii Sterile Latex Free - [id number] Implanted:Qty: 1 on 08/14/2020 by Issa Montana MD at [facility] Right: Index Finger [employer] [id number] 01/14/2023 MCP-50 / / [id number] Procedures Procedure Name Priority Date/Time Associated Diagnosis Comments OK ARTHROCENTESIS ASPIR&/INJ SMALL JT/BURSA W/O US Routine 11/28/2024 9:30 AM CDT Arthritis, degenerative, localized, primary, hand, left OK ARTHROCENTESIS ASPIR&/INJ SMALL JT/BURSA W/O US Routine 11/28/2024 9:30 AM CDT Arthritis of carpometacarpal (CMC) joint of left thumb POCT GLUCOSE DEVICE Routine 10/04/2024 2 :19 PM CDT SURGICAL PATHOLOGY Routine 10/04/2024 1: 54 PM CDT Gross hematuria OK AN PROCEDURE PLACEHOLDER Routine 10/04/2024 1:40 PM CDT OK AN ELECTIVE SUPRAGLOTTIC AIRWAY Routine 10/04/2024 1:40 [...] Recently Relevant to Health Maintenance Results * OK ARTHROCENTESIS ASPIR&/INJ SMALL JT/BURSA W/O US (11/28/2024 [...] MD IN CLINIC/BEDSIDE ORDERABLES Final Result * OK ARTHROCENTESIS ASPIR&/INJ SMALL JT/BURSA W/O US (11/28/2024 [...] be considered if clinically indicated. POC Performer [id number] [facility] Blood 10/04/2024 2:19 PM CDT 10/04/2024 2:19 PM CDT Rell Worthy MD LAB POCT ORDERABLES - DEVICE F inal Result [facility] [address] Department [place] [address] * Surgical pathology (10/04/2024 1:54 PM CDT) Tissue (Mass/Tumor/Lesio n) 10/04/2024 1:54 PM CDT Comment:Placed in Formalin a t end of procedure Narrative PATHOLOGY [facility] - 10/10/2024 3:[address] PM [address] [address] Tele: Marine Diaz MD - Hardware Manager Note to Patients: This report may contain [...] details. SURGICAL PATHOLOGY REPORT Patient Name: ROSCOE SUTHERLAND SR. Address: [address] [place] [address] Gender: M : 1950 (Age: 74) Service: Surgery Location: [facility] [place], Hospital #: [id number] Patient Type: [facility] SAME DAY SURGERY Taken: 10/04/2024 Received 10/04/2024 Reported: 10/10/2024 Physician(s): Edelmira Langford M.D. DIAGNOSIS: Urinary bladder, tumor, transurethral resection: [...] single container with the patient's name, ROSCOE SUTHERLAND labeled bladder tumor and contains multiple pink-tomlinson [...] level is examined. Clerical Data Follows A; 03727, 82498, 26680 REPORT IMAGES AND/OR SCANNED DOCUMENTS ONLY VIEWABLE IN PDF FORMAT The immunohistochemical test(s) cited in this report, if any, was developed and its performance characteristics determined by [facility] Pathology Department. It has not been cleared or approved by the U.S. Food and Drug Administration. The FDA has determined that such clearance or approval is not necessary. This test is used for clinical purposes. It should not be regarded as investigational or for research. [facility] Laboratory is certified under [...] part or completely in the following laboratories: [facility], [address] [place] [address], [address] [place] [id number]. us Rell Worthy MD LAB PATHOLOGY ORDERABLES Final Result PATHOLOGY [facility] Laboratory Receiving [address] [place] [address] * OK AN ELECTIVE SUPRAGLOTTIC AIRWAY, OK AN PROCEDURE PLACEHOLDER (10/04/2024 1:40 PM CDT) Janae Woodard CRNA - 10/04/2024 1:40 PM CDT Janae Campo CRNA 10/04/2024 1:41 PM Airway Patient location: OR Urgency: elective Indications for airway management: anesthesia Difficult airway: no Staff: Supervising provider: Tonny Stafford DO Placed by: CHAIRMAN & CEO: Janae Campo CRNA Emergent airway documentation: Risks and benefits discussed: yes Consent obtained: yes Consent given by: patient Airway prep: Preoxygenated: yes Patient position: sniffing Mask difficulty assessment: 0 - not attempted Sedation level during airway: GA Final airway details: Final airway type: supraglottic airway Final supraglottic airway: Spooner SGA size: 5 Number of attempts: 1 Additional comments: Atraumatic. Lips, teeth, tongue, mouth same as perop. Head and neck nuetral Tonny Stafford DO ANESTHESIA ORDERABLES Final Result * POCT glucose (10/04/2024 11:08 AM CDT) [facility] Glucose, POC 182 70 - 199 mg/dL Comment: For Glucose values <35 mg/dl when Hematocrit is >60 mg/dl,the test may not accurately detect significant hypoglycemia,and testing in the Laboratory should be considered if clinically indicated. POC Performer [id number] ROS [facility] Blood 10/04/2024 11:0 8 AM CDT 10/04/2024 11:08 AM CDT Rell Worthy MD LAB POCT ORDERABLES - DEVICE F inal [facility] [address] Department [place] [address] * eGFR (08/05/2024 6:10 AM CDT) [facility] eGFR 85 >=60 mL/min/1. 73 m2 Comment: [...] of Race in Diagnosing Kidney Disease, JASN 202). The CKD-EPI equation should not be used for patients with unstable renal function and has not been validated in children and those over 70. Current interpretive data was last reviewed 2021. Blood 08/05/2024 6:10 AM CDT 08/05/2024 6:45 AM CDT Shellie Roldan MD LAB BLOOD ORDERABLES Final Resul t Performing Organization Address City/[facility] Co de Phone Number [facility] [address] [employer] [place], [place] [id number] * (ABNORMAL) Hemoglobin A1c (08/05/2024 6:10 AM CDT) Pathologist [facility] Hgb A1C 7.1(H) 4.0 - 5.6 % Estimated Average Glucose 157 mg/dL [facility] Comment: The ADA recommends reporting an estimated Average Glucose (eAG) with all Hemoglobin A1c results using the equation derived from a study of 507 normal and diabetic adults. Minority populations were underrepresented and children were not included. (Diabetes Care 31:0912-7638, 2008). The eAG is not equivalent to a fasting glucose. Blood 08/05/2024 6:10 AM CDT 08/05/2024 6:45 AM CDT Shellie Roldan MD LAB BLOOD ORDERABLES Final Resul t Performing Organization Address City/[facility]/ZIP Co de Phone Number [facility] [address] Department of [employer] [place], [place] [id number] * Lipid panel (08/05/2024 6:10 AM CDT) [...] revised on 2018. Triglycerides 65 <=149 mg/dL [facility] Comment: Interpretive Data Ages < or = [...] revised on 2018. HDL 42 >=40 mg/dL [facility] Comment: Interpretive Data Ages < or = [...] on 2018. LDL, calculated 56 <=129 mg/dL [facility] Comment: Interpretive Data Ages < or = [...] revised on 2024. Non-HDL Cholesterol 70 mg/dL [facility] Comment: Interpretive Data Ages < or = [...] last revised on 2018. Chol/HDL ratio [address] [facility] Blood 08/05/2024 6:10 AM CDT 08/05/2024 6:45 AM CDT Shellie Roldan MD LAB BLOOD ORDERABLES Final Resul t [facility] [address] Department [place] [address] from Last 3 Months or Most Recently Relevant to Health Maintenance Insurance MEDICARE [employer] MEDICARE SUPPLEMENT MEDICARE [facility] MEDICARE [facility] MEDICARE SUPPLEMENT Advance Directives For more information, please contact: [phone] * Full Code (Latest Code Status on File) Date Activated Date Inactivated Comments 08/05/2024 12:34 AM 08/06/2024 7:16 PM Care Teams Associate Vice President Relationship Specialty Start Date End Date Larry Morel MD PCP - General Family Medicine 12/05/19 Noam Horn MD [address] [place] [address] Referring Physician Endocrinology Diabetes & Metabolism 07/29/20 Hao Perez MD [address] [place] [address] Referring Physician Ophthalmology 07/29/20
--- OUTSIDE RECORDS SUMMARY | 2024-12-08 10:40 | XMS_ITS | Clinical Summary ---
Author Organization [facility] myrtle Ramsey Address [address] [place] [address] Care Team Providers Care Manager Environmental Health Name Role Phone Pantera Bolivar MD Primary Care Provider [phone] Allergies No known active allergies Medications tadalafil [...] Encounters Date Type Department Care Team Description 12/04/2024 Orders Only [facility] - [place] [address] Mikael Gomes MD Benign hypertension 11/27/2024 Orders Only [facility] - [place] [address] Mikael Gomes MD 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 Orders Only [facility] - [place] [address] [place] [id number] Mikael Gomes MD Benign hypertension 11/13/2024 Orders Only [facility] - [place] [address] [place] [id number] Mikael Gomes MD Carcinoma in situ of bladder 11/06/2024 Orders Only [facility] - [place] [address] Mikael Gomes MD Benign hypertension 10/31/2024 External Device Data STL ABSTRACTION Provider, Abstract 10/30/2024 Orders Only [facility] - [place] [address] [place] [id number] Mikael Gomes MD Carcinoma in situ of bladder 10/23/2024 Orders Only [facility] - [place] [address] [place] [id number] Mikael Gomes MD Benign hypertension 10/16/2024 Orders Only [facility] - [place] [address] [place] [id number] Mikael Gomes MD Carcinoma in situ of bladder 10/09/2024 Orders Only [facility] - [place] [address] [place] [id number] Mikael Gomes MD Benign hypertension 10/05/2024 External Device Data STL ABSTRACTION Provider, Abstract 10/05/2024 External Device Data STL ABSTRACTION Provider, Abstract 10/04/2024 External Device Data STL ABSTRACTION Provider, Abstract 10/04/2024 External Device Data STL ABSTRACTION Provider, Abstract 10/03/2024 External Device Data STL ABSTRACTION Provider, Abstract 10/02/2024 Orders Only [facility] [place] [address] [place] [phone] Mikael Gomes MD 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 Orders Only [facility] - [place] [address] [place] [address] Mikael oGmes MD Benign hypertension 09/18/2024 Orders Only [facility] - [place] [address] [place] [address] Mikael Gomes MD Carcinoma in situ of bladder 09/13/2024 Orders Only [facility] - [place] [address] [place] [address] Mikael Gomes MD 09/12/2024 10:00 AM CDT Office Visit [facility] [address] [place] [address] Remedios Vickers MD Chronic anemia (Primary Dx); Carcinoma in situ of bladder 09/12/2024 Orders Only [facility] [place] [address] [place] [id number] Mikael Gomes MD 09/11/2024 Orders Only [facility] [place] [address] [place] [id number] Mikael Gomes MD Benign hypertension from Last 3 Months Family History Medical [...] on file Legal Sex Male 3:22 AM [employer] Gender Identity Male 09/13/2024 10:33 AM CDT [...] A M CDT Height 185.4 cm (6' 1) 02/17/2024 3:14 PM CDT Body Mass Index 27.47 02/17/2024 3:14 PM CDT Plan of Treatment Health Maintenance Due Date Last Done Comments DIABETES ANNUAL FOOT EXAM 1967 DIABETES MICROALBUMIN ANNUAL SCREEN 1967 LDL CHOLESTEROL ANNUAL 1967 DTAP/TDAP/TD VACCINES (1 - Tdap) 1968 PNEUMOCOCCAL VACCINE 50+ YEA RS (1 of 2 - PCV) 1968 FIT-DNA Q 3 years 1994 FIT/FOBT Q 1 year 1994 Flex Sig/CT Colonography Q 5 years 1994 ZOSTER VACCINE (2 of 3) 06/13/2012 04/18/2012 Abdominal Aortic Aneurysm (A AA) Screening 2014 DIABETES ANNUAL RETINAL EXAM 06/16/2022, 05/26/2021, 09/09/2020, Additional history exists RSV VACCINE (60+ or ) (1 - 1-dose 75+ series) 2024 INFLUENZA VACCINE (#1) 2024 DIABETES HBA1C Q 6 MONTHS 02/05/20252024, 06/29/2024, 03/21/2024, Additional history exists COLORECTAL SCREENING 10/22/2032 10/22/2022 Colorectal Cancer Screening 10/22/2032 Procedures Procedure Name Priority Date/Time Associated Diagnosis Comments CBC MIXED CELL DIFFERENTIAL Routine 09/12/2024 1:02 PM CDT COMPREHENSIVE METABOLIC PANEL Routine 09/12/2024 8:55 AM CDT BASIC METABOLIC PANEL Routine 09/12/2024 7:45 AM CDT from Last 3 Months Results * CBC MIXED CELL DIFFERENTIAL (09/12/2024 1:02 PM CDT) Blood us Mikael Gomes MD HEMATOLOGY ORDERABLES Final Res ult * COMPREHENSIVE METABOLIC PANEL (09/12/2024 8:55 AM CDT) Blood us Mikael Gomes MD CHEMISTRY ORDERABLES Final Resu lt * BASIC METABOLIC PANEL (09/12/2024 7:45 AM CDT) Blood us Mikael Gomes MD CHEMISTRY ORDERABLES Final Resu lt from Last 3 Months Insurance MEDICARE PART A AND B BCBS [address] [id number] Care Teams Manager Environmental Health Relationship Specialty Start Date End Date Pantera Bolivar MD [address] [place] [id number] PCP - General 05/02/15
--- OUTSIDE RECORDS SUMMARY | 2024-12-08 10:40 | XMS_ITS ---
Author Organization [facility] Address [address] [facility] [address] [address] Care Team Providers Care Water Superintendent Name Role Phone Larry Morel Primary Care Provider Noam Gar Unavailable [phone] REASON FOR VISIT Refill MEDICATIONS Medication SIG (Take, Route, Fr equency, Duration) Notes Start Date End Date Status Omeprazole 20 MG 1 capsule Orally Onc e a day for 90 days Active Encounters Encounter Location Date Provider Diagnosis [facility] [address] [facility] [address] [address] 11/27/2024 Noam Kory Type 2 diabetes mellitus with hyperglycemia E11.65 ASSESSMENTS Encounter Date Diagnosis Assessment Notes Treatment Notes Treatment Clinical Notes Section Notes 11/27/2024 Type 2 diabetes mellitus with hyperglycemia (ICD-10 - E11.65) PLAN OF TREATMENT Medication Medication Name Sig Start Date Stop Date Notes Omeprazole 20 MG 1 capsule Orally Once a day for 90 days Next Appt Details Provider Name:Noam Horn, 03/01/2025 10:15:00 AM, [address], [address],
--- OUTSIDE RECORDS SUMMARY | 2024-12-08 10:40 | XMS_ITS | Continuity of Care Document ---
Author Organization [facility] Address [address] [place] [address] Phone Care Team Providers Care Defence [employer] Member Other Ranks Name Role Phone Moser OD, Oswaldo Unavailable Unavailable Procedures Procedure Date Eye Exam & Treatment Refraction Eye Exam & Treatment Refraction Eye Exam & Treatment Office/outpatient Visit, Est Office/outpatient Visit, Est Frames Deluxe PolicyStat - Medical No Charge Glasses Check Progressive Lens, Plastic PolicyStat - Medical Post-op Follow-up Visit Refraction Remove [...] Diagnoses Date Provider Providers Copied on Encounter [facility], [address], [place], [place], [address], [place] tel:[phone] [facility] No Information Sep-0 9-201 0 Moser OD Oswaldo. [address] , [address], [place], [place], [facility], . tel:[phone] Referring Provider: Pantera Bolivar MD, [address], [place], [address]. tel:[phone] [facility], [address] [place] [address] [address], [place], [place], [address], tel:[phone] [facility] No Information 2 1-200 9 Moser OD Oswaldo. [address] , [address], [place], [place], [facility], . tel:[phone] Referring Provider: Pantera Bolivar MD, [address] [facility], [place], [address]. tel:[phone] [facility], [address] [place] [address] [address], [place], [place], [address], [place] tel:[phone] [facility] No Information 4-200 8 Moser OD Oswaldo. [address] , [address], [place], [facility], . tel:[phone] Office/outpat ient Visit, [facility], [address] [place] [address] [address], [place], [place], [address], [place] tel:[phone] [facility] No Information 2 1-200 8 Moser OD Oswaldo. [address] , [address], [place], [facility], . tel:[phone] Office/outpat ient Visit, [facility], [address] [place] [address] [address], [place], [place], [address], [place] tel:[phone] [facility] No Information 4-200 8 Moser OD Oswaldo. [address] , [address], [place], [address], [place]. tel:[phone] [facility], [address], [place], [place], [address], [place] tel:[phone] [facility] No Information Nov-2 7-200 7 [employer] . [address], [address], [place], [place], [address], [place]. tel:[phone] Consulting Provider: Uzma Larsen, [address] [place] [address], [facility]. tel:[phone] [facility], [address], [place], [place], [address], [place] tel:[phone] [facility] No Information Nov-0 1-200 7 Moser OD Oswaldo. [address], [address], [place], [facility], [place]. tel:[phone] [facility], [address], [place], [place], [address], [place] tel:[phone] [facility] No Information Oct-0 9-200 7 [employer] . [address], [address], [place], [place], [address], [place]. tel:[phone] Referring Provider: Sherwin Rubi, [address] [place], [place] [address]ate [address], [place], [facility]. tel:[phone] lting Provider: Uzma Larsen, [address] [place] [address], [address]. tel:[phone] [facility], [address], [place], [place], [address], [place] tel:[phone] [facility] No Information Oct-0 5-200 7 Lucio Courtney. [facility] [address], [address], [place], [facility], [place]. tel:[phone] [facility], [address], [place], [place], [address], [place] tel:[phone] [facility] No Information Sep-2 1-200 7 Doisy Edward. [address] , [address], [place], [facility], . tel:[phone] [facility], [address] [place] [address] [address], [place], [place], [address], [place] tel:[phone] SEC [facility] No Information Sep-2 1-200 7 Doisy Edward. [address] , [address], [place], [facility], [place]. tel:[phone] [facility], [address], [place], [place], [address], [place] tel:[phone] [facility] No Information Sep-1 9-200 7 Doisy Edward. [address] , [address], [place], [facility], [place]. tel:[phone] Referring Provider: Oswaldo Rubi, [facility] [address], [place], [facility]. tel:[phone] [facility], [address], [place], [place], [address], [place] tel:[phone] [facility] No Information Sep-1 2-200 7 Doisy Edward. [address] , [address], [place], [facility], [place]. tel:[phone] [facility], [address], [place], [place], [address], [place] tel:[phone] [facility] No Information Sep-1 1-200 7 Doisy Edward. [address] , [address], [place], [facility], [place]. tel:[phone] Referring Provider: Oswaldo Moser OD A, [address], [place], [address]. tel:[phone] Office/outpat ient Visit, [facility], [address], [place], [place], [address], [place] tel:[phone] [facility] No Information Sep-0 5-200 7 Lucio Courtney. [address] , [address], [place], [facility], [place]. tel:[phone] Referring Provider: Sherwin Rubi, [address], [place], [facility]. tel:[phone] [facility], [address] [place] [address] [address], [place], [place], [address], [place] tel:[phone] [facility] No Information Aug-2 3-200 7 Moser OD Oswaldo. [address] , [address], [place], [facility], [place]. tel:[phone] Referring Provider: Pantera Bolivar MD, [address], [place], [address]. tel:[phone] Office/outpat ient Visit, [facility], [address] [place] [address] [address], [place], [place], [address], [place] tel:[phone] [facility] No Information Apr-0 2-200 7 Wanjonathan Levy. [address] [facility], [place], [place], [address], [place]. tel:[phone] [facility], [address] [place] [address] [address], [place], [place], [address], [place] tel:[phone] [facility] No Information Jay-0 9-200 7 Moser OD Oswaldo. [address] [facility] [address], [address], [place], [address], [place]. tel:[phone] Family History Family Member Type Diagnosis Age [...]
--- OUTSIDE RECORDS SUMMARY | 2024-12-08 10:40 | XMS_ITS | Patient Health Record ---
Author Organization [facility] Address [address] [address] Care Team Providers Care Hostess Name Role Phone Larry Morel Primary Care Provider Noam Gar Unavailable [phone] Linnea Orlando Unavailable [phone] ALLERGIES No Known Allergies RESULTS Component Value Reference Range Notes Hemoglobin A1c Reviewed date:03/22/2024 12:26:54 PM Interpretation: Performing Lab:[facility], [address] [facility], Phone - [phone], Director - Ja Notes/Report: Hemoglobin A1c 6.7 4.8-5.6 % . Prediabetes: 5.7 - 6.4 Diabetes: >6.4 Glycemic control for adults with diabetes: <7.0 Comp Metabolic Panel (14) Reviewed date:03/22/2024 12:27:10 PM Interpretation: Performing Lab:[facility], [address] [facility], Phone - [phone], Director - PhDJosh Notes/Report: Glucose 148 70-99 mg/dL BUN 5 [...] A1c Reviewed date:06/30/2024 12:24:52 PM Interpretation: Performing Lab:[facility] [place], [address] [facility], Phone - [phone], Director - [facility] Notes/Report: Hemoglobin A1c 7.6 4.8-5.6 % . Prediabetes: 5.7 - 6.4 Diabetes: >6.4 Glycemic control for adults with diabetes: <7.0 Comp Metabolic Panel (14) Reviewed date:06/30/2024 12:25:24 PM Interpretation: Performing Lab:[facility], [address] [facility], Phone - [phone], Director - [facility] Notes/Report: Glucose 89 70-99 mg/dL BUN 15 [...] ALT (SGPT) 18 0-44 IU/L Hemoglobin A1c (In-House) Reviewed date:11/15/2024 03:26:55 PM Interpretation: Performing Lab: Notes/Report: Hemoglobin A1c 8.2% 4.0 - 6.0 % CBC With Differential/Platel et Reviewed date:11/15/2024 11:41:41 PM Interpretation: Performing [facility], [address] [facility], Phone - [phone], Director - Ja Notes/Report: WBC 7.2 3.4-10.8 x10E3/uL RBC 4.17 [...] (14) Reviewed date:11/15/2024 03:28:23 PM Interpretation: Performing Lab:[facility] [place], [address] [facility], Phone - [phone], Director - Ja Notes/Report: Glucose 198 70-99 [...] 1.28 0.62 - 1.58 ng/dL REASON FOR REFERRAL No Information MEDICATIONS Medication SIG (Take, Route, Frequency, Duration) Notes Start Date End Date Status Ozempic (1 MG/DOSE) 4 MG/3ML inject 1 mg under the skin once a week for 84 days Active Lantus SoloStar 100 UNIT/ML inject 45 units in the morning and 85 units in the evening under the skin daily for 90 days Active Complete Multi-Vitamin Orally Once a Day Active TRUEplus Pen [place] 31G X 8 MM USE DIRECTED 5 TIMES A DAY for 90 Active metFORMIN HCl ER 500 MG 2 tablets Orally Two Times a Day for 90 days Active Levothyroxine Sodium 175 MCG 1 tablet in the morning on an empty stomach Orally Once a day for 30 days Active Vitamin B-12 1000 MCG 1 tablet Orally Once a day 0 01/27/2019 Active Gabapentin 300 MG 1 Capsule Orally Two Times a Day Active Rosuvastatin Calcium 10 MG 1 tablet Orally Once a day Active Eliquis 5 MG 1 tablet Orally Tw a 07/21/2023 Active Atenolol 50 MG 1 tablet Orally Once a day Active Dexcom G7 Ultrasound Technician - as directed Active Fenofibrate Micronized 200 MG TAKE 1 CAPSULE BY MOUTH ONCE A DAY Active HumaLOG KwikPen 100 UNIT/ML per moderate dose sliding scale Subcutaneous three times a day max Daily Dose 50 Units for 90 days Active Celecoxib 200 MG TAKE ONE CAPSULE BY MOUTH WITH FOOD NEEDED Orally Three Times a Day Active Dexcom G7 Sensor - as directed Active Omeprazole 20 MG 1 capsule Orally Onc e a day for 90 days Active Accu-Chek SmartView - DXCODE: E11.65, ID DM) Use 1 Test Strip In Vitro Three Times a Day for 90 days Active Accu-Chek FastClix Lancets - DXCODE: E11.65, IDDM) Use 1 Lancet Subcutaneously Three Times a Day Active IMMUNIZATIONS Vaccine Route Administration Date Status Comme nts Influenza IM Intramuscular 02/08/2020 Administered Pt received Influenza HD Lot #[id number] EXP November 13 2020 PROBLEMS Problem Type ICD Code Onset Dates Problem Status W/U Status Risk SNOMED Code Notes Problem Peripheral neuropathy (G62.9) Active confirmed Periphera l neuropathy (531017771) Problem CVA (cerebral infarction) (I63.9) Active confirmed Cerebrov ascular accident (395871689) Problem Benign hypertension (I10) Active confirmed 23971533 Problem Vitamin D deficiency, unspecified (E55.9) Active confirmed Vitamin D deficiency (05120028) Problem Type 2 diabetes mellitus with hyperglycemia (E11.65) Active confirmed Hyperglycemia d ue to type 2 diabetes mellitus (613617122557697) Problem Kidney stone (N20.0) Active confirmed Kidney stone (38629782) Problem Hypercalcemia (E83.52) Active confirmed Hypercalcemia (30486047) Problem 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) Active confirmed Mixed hyperlipidemia (058501747) Problem Unspecified hypothyroidism (E03.9) Active confirmed 66295480 Problem 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) Active confirmed 603410650 Problem Thrombophlebitis (I80.9) Active confirmed Thrombophlebiti s (79436714) Problem Deficiency of other specified B group vitamins (E53.8) Active confirmed Vitamin B deficiency (73884863) Problem 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) Active confirmed Glucose product (209623219) VITAL SIGNS Heart Rate 84 /min 11/14/2024 Blood pressure diastolic 70 mm Hg 11/14/2024 Height 73 in 11/14/2024 Blood pressure systolic 130 mm Hg 11/14/2024 Weight 208.0 lbs 11/14/2024 BMI 27.44 kg/m2 11/14/2024 Encounters Encounter Location Date Provider Diagnosis [facility] [address] [place] [address] 03/10/2024 Linnea Orlando [facility] [address] [place] [address] 03/21/2024 Noam Oiknine Type 2 diabetes mellitus [...] and Kidney stone N20.0 [facility] [address] [place] [address] 06/29/2024 Noam Oiknine Type 2 diabetes mellitus [...] and Kidney stone N20.0 [facility] [address] [place] [address] 10/05/2024 Noam Oiknine [facility] [address] [place] [address] 11/14/2024 Noam Oiknine Type 2 diabetes mellitus with [...] and Kidney stone N20.0 [facility] [address] [address] 12/29/2023 Noam Oiknine Type 2 diabetes mellitus with hyperglycemia E11.65 [facility] [address] [address] 01/03/2024 Noam Oiknine Type 2 diabetes mellitus with hyperglycemia E11.65 [facility] [address] [address] 01/03/2024 Noam Oiknine Unspecified hypothyroidism E03.9 [facility] [address] [address] 03/08/2024 Noam Oiknine Type 2 diabetes mellitus with hyperglycemia E11.65 [facility] [address] [address] 03/14/2024 Noam Oiknine [facility] [address] [address] 03/23/2024 Noam Oiknine Type 2 diabetes mellitus with hyperglycemia E11.65 [facility] [address] [address] 05/22/2024 Noam Oiknine Type 2 diabetes mellitus with hyperglycemia E11.65 [facility] [address] [address] 06/29/2024 Noam Oiknine [facility] [address] [address] 08/02/2024 Noam Oiknine [facility] [address] [address] 08/08/2024 Noam Oiknine Type 2 diabetes mellitus with hyperglycemia E11.65 [facility] [address] [address] 09/06/2024 Noam Oiknine Type 2 diabetes mellitus with hyperglycemia E11.65 [facility] [address] [address] 09/06/2024 Noam Oiknine Type 2 diabetes mellitus with hyperglycemia E11.65 [facility] [address] [address] 10/19/2024 Noam Oiknine Unspecified hypothyroidism E03.9 [facility] [address] [address] 11/15/2024 Noam Oiknine Anemia D64.9 [facility] [address] [address] 11/27/2024 Noam Oiknine Type 2 diabetes mellitus with hyperglycemia E11.65 ASSESSMENTS Encounter Date Diagnosis Assessment Notes Treatment Notes Treatment Clinical Notes Section Notes 03/21/2024 Type 2 diabetes mellitus with hyperglycemia (ICD-10 - E11.65) 03/21/2024 Peripheral neuropathy (ICD-10 - G62.9) 06/29/2024 Type 2 diabetes mellitus with hyperglycemia (ICD-10 - E11.65) 06/29/2024 Peripheral neuropathy (ICD-10 - G62.9) 11/14/2024 Type 2 diabetes mellitus with hyperglycemia (ICD-10 - E11.65) 11/14/2024 Peripheral neuropathy (ICD-10 - G62.9) 12/29/2023 Type 2 diabetes mellitus with hyperglycemia [...] diabetes mellitus with hyperglycemia (ICD-10 - E11.65) 10/19/2024 Unspecified hypothyroidism (ICD-10 - E03.9) 11/27/2024 Type 2 diabetes mellitus with hyperglycemia (ICD-10 - E11.65) 03/21/2024 Unspecified hypothyroidism (ICD-10 - E03.9) 06/29/2024 Unspecified hypothyroidism (ICD-10 - E03.9) 11/14/2024 Unspecified hypothyroidism (ICD-10 - E03.9) 11/15/2024 Anemia (ICD-10 - D64.9) 03/21/2024 Benign hypertension (ICD-10 - I10) 06/29/2024 Benign hypertension (ICD-10 - I10) 11/14/2024 Benign hypertension (ICD-10 - I10) 03/21/2024 Combined hyperlipidemia (ICD-10 - E78.2) 06/29/2024 Combined hyperlipidemia (ICD-10 - E78.2) 11/14/2024 Combined hyperlipidemia (ICD-10 - E78.2) 03/21/2024 Hypercalcemia (ICD-10 - E83.52) 06/29/2024 Hypercalcemia (ICD-10 - E83.52) 11/14/2024 Hypercalcemia (ICD-10 - E83.52) 03/21/2024 Impotence of organic origin (ICD-10 - N52.8) 06/29/2024 Impotence of organic origin (ICD-10 - N52.8) 11/14/2024 Impotence of organic origin (ICD-10 - N52.8) 03/21/2024 Presence of CGMS (ICD-10 - Z410.0) 06/29/2024 Presence of CGMS (ICD-10 - Z410.0) 11/14/2024 Presence of CGMS (ICD-10 - Z410.0) 03/21/2024 CVA (cerebral infarction) (ICD-10 - I63.9) 06/29/2024 CVA (cerebral infarction) (ICD-10 - I63.9) 11/14/2024 CVA (cerebral infarction) (ICD-10 - I63.9) 03/21/2024 Thrombophlebitis (ICD-10 - I80.9) 06/29/2024 Thrombophlebitis (ICD-10 - I80.9) 11/14/2024 Thrombophlebitis (ICD-10 - I80.9) 03/21/2024 Vitamin D deficiency, unspecified (ICD-10 - E55.9) 06/29/2024 Vitamin D deficiency, unspecified (ICD-10 - E55.9) 11/14/2024 Vitamin D deficiency, unspecified (ICD-10 - E55.9) 03/21/2024 Deficiency of other specified B group vitamins (ICD-10 - E53.8) 06/29/2024 Deficiency of other specified B group vitamins (ICD-10 - E53.8) 11/14/2024 Deficiency of other specified B group vitamins (ICD-10 - E53.8) 03/21/2024 Kidney stone (ICD-10 - N20.0) 06/29/2024 Kidney stone (ICD-10 - N20.0) 11/14/2024 Kidney stone (ICD-10 - N20.0) 03/21/[address] Noam Horn dictates using [employer] software. Plastics Worker variances may occur. Since our last visit the patient had a port placed for treatment with KETRUDA for bladder cancer. Blood pressure remained stable. He has gained a few pounds. He is off of hydrochlorothiazi de. I will repeat an A1c along with [...] 06/29/[address] Noam alfonso dictates using [employer] software. Plastics Worker variances may occur. Since our last visit [...] him again in 3 months for follow-up 10/05/2024 Other 11/14/[address] Noam alfonso dictates using [employer] software. Plastics Worker variances may occur. Since our last visit [...] or sooner if needed PLAN OF TREATMENT Future Test Test Name Order Date CBC (INCLUDES DIFF/PLT) 12/05/2024 FERRITIN 12/05/2024 Next Appt Details Provider Name:Noam Horn, 03/01/2025 10:15:00 AM, [address], [address], Insurance Providers Payer Name Payer Address Payer Phone Subscriber Number Group Number Insured Name Patient Relationship to Insured Coverage Start Date Coverage End Date Medicare [address] [address] [place] [address] [id number] Roscoe Pérez Sr Self - patient is the insured Blue [employer]/Blue [employer] (USE THIS ONE) [address] [place] [address] [id number] Roscoe Pérez Sr Self - patient is [...] BCG treatment---dr rubio--DR GONG --- PORT FOR [facility] Surgical History Surgery Date(Month/Year) esophageal [...] Port placement for cancer treatment 02/15 024 BLADDER BIOPSY 10/2024 Hospitalization History Reason Date(Month/Year) heparin window 2010 Kidney stones 02/2020 Kidney Stones 11/2020 Covid 01/2021 Falls/balance issues 04/2023 MULTIPLE MINI STROKES 07/2024
[2024-12-08 12:30] LABS: Anion Gap 7 mmol/L (4-12); Blood Urea Nitrogen 16 mg/dL (9-20); Calcium 10.4 mg/dL (8.4-10.2); Carbon Dioxide 26 mmol/L (22-30); Chloride 106 mmol/L (98-107); Estimated Glomerular Filt Rate > 60; Glucose 147 mg/dL (65-110); Potassium 4.7 mmol/L (3.4-5.0); Sodium 139 mmol/L (137-145)
== END 2024-12-08 10:33 | disposition home or self-care (01) ==
PROVIDERS: PCP Family Medicine; Visit Provider Internal Medicine Nephrology
DX: D64.9 Anemia, unspecified (principal); N20.0 Calculus of kidney; K82.4 Cholesterolosis of gallbladder
CPT/HCPCS: 36415; 74018; 80048

== ENCOUNTER 2024-12-16 08:09 | Observation (INO) | payer MEDICARE, SELFPAY ==
[2024-12-16] VITALS (10 sets, daily range): BP systolic 147–153; BP diastolic 67–82; PULSE 71–77; RESP 13–20; TEMP 36.4–37.3; O2SAT 97–100; BMI 27.1
--- NOTE | ~2024-12-16 | CT_ITS ---
EXAMINATION: CTA BRAIN/CAROTID DATE: 12/16/2024 09:25 INDICATION: Vision changes TECHNIQUE: Computed tomographic angiography (CTA) of the head and neck was performed with 100 mL Omni paque-350 intravenous contrast. Multiplanar reconstructions and maximum intensity projection 3D-recon structions of the carotid arteries and of the intracranial arteries were created by the technologist on a separate workstation. Precontrast CT of the head was also obtained. Automated exposure control and iterative reconstruction technique were employed.The dose-length product was 1941.38 mGy-cm. COMPARISON: Brain MR dated 07/30/[address] brain [address] carotid CT angiogram dated 07/29/2024 FINDINGS: Carotid arteries: Small amount of nonhemodynamically. Atherosclerotic plaque along the visualized cephalad portion the aortic arch and the great vessels arising from the arch. Left vertebral artery is dominant. There is atherosclerotic plaque with 40% stenosis of the right carotid bulb relative to normal distal artery l umen diameter (NASCET criteria). Unchanged complete occlusion of the left carotid bulb and extra cran ial internal carotid artery. Visualized portion of the upper lungs are clear. Heart is not visualized and either severely atrophic or surgically absent. Cervical soft tissues are otherwise unremarkable. Partially visualized old right internal jugular central venous catheter which extends caudally along the superior vena cava beyond the inferior margin of the field of imaging. Mild cervical spondylosis . Head: Unchanged small old lacunar infarcts at the bilateral basal ganglia and in the right parietal rolon radiata. No acute intracranial hemorrhage, acute infarction or abnormal extra axial fluid collection. There is moderate scattered white matter hypoattenuation consistent with chronic small vessel ischem ic disease. Symmetric prominence of the sulci consistent with mild age-appropriate diffuse cerebral v olume loss.Ventricles are normal and symmetric. No mass/mass effect. No abnormally enhancing brain le sions on the postcontrast imaging. Changes of bilateral intraocular lens replacement. The orbits, par anasal sinuses and mastoid air cells are normal. Intracranial arteries Left vertebral artery is dominant.. There is no hemodynamically significant stenosis in the vertebral , basilar and right internal carotid arteries. There is reconstitution of flow in the left internal c arotid artery at the carotid siphon, unclear whether via the ophthalmic artery or due to retrograde f low supplied from the right internal carotid artery via a patent anterior communicating artery. Both A1 and P1 segments are patent. There are no aneurysms identified. Cerebral arterial arborization juliocesar ears symmetric. IMPRESSION: 1. 40% stenosis of the right carotid bulb relative to normal distal artery lumen diameter (NASCET cri teria). 2. Persistent complete occlusion of the extracranial left internal carotid artery with reconstitution at the carotid siphon, unclear whether via ophthalmic artery or retrograde flow supplied from the ri ght internal carotid artery via a patent anterior communicating artery. 3. Small old infarcts in bilateral basal ganglia and right parietal rolon radiata. No acute intracra nial process. 4. Age-related changes including mild diffuse volume loss and moderate scattered white matter hypoatt enuation consistent with chronic small vessel ischemic disease. Reviewed, dictated and finalized at location A. IMPRESSION: 1. 40% stenosis of the right carotid bulb relative to normal distal artery lume n diameter (NASCET criteria). 2. Persistent complete occlusion of the extracranial left internal carotid linh ry with reconstitution at the carotid siphon, unclear whether via ophthalmic ar bacilio or retrograde flow supplied from the right internal carotid artery via a p atent anterior communicating artery. 3. Small old infarcts in bilateral basal ganglia and right parietal rolon radi alex. No acute intracranial process. 4. Age-related changes including mild diffuse volume loss and moderate scattere d white matter hypoattenuation consistent with chronic small vessel ischemic di sease.
--- NOTE | ~2024-12-16 | MR_ITS ---
EXAMINATION: MR brain/brain stem wo/w con DATE: 12/16/2024 14:44 INDICATION: CVA TECHNIQUE: Magnetic resonance imaging (MRI) of the brain and brainstem was performed without intraven ous contrast. Sequences included sagittal and axial T1-weighted SE, axial diffusion-weighted FS EPI A SSET, axial T2*-weighted GRE, axial T2-weighted FLAIR Propeller, and axial T2-weighted Propeller. Pos tcontrast axial and coronal T1-weighted SE was obtained. Apparent diffusion coefficient (ADC) maps we re created. COMPARISON: CTA brain carotid 12/16/2024. FINDINGS: Tiny focus of restricted diffusion in the right parietal cortex. Old bilateral basal ganglia and righ t rolon radiata lacunar infarcts. No MRI evidence of hemorrhage or extra-axial collection. No suspic ious foci of susceptibility to suggest prior intraparenchymal hemorrhage. Moderate patchy white matte r hyperintensity, likely representing moderate small vessel ischemic disease. Mild generalized parenc hymal volume loss. The basilar cisterns are patent. Abnormal flow void in the extracranial and cavern ous portion of the left internal carotid artery, with normal distal flow voids. Mild ethmoid mucosal thickening. Trace right mastoid fluid. The remaining aerated spaces are clear. Bilateral lens replace ment. Globes and orbital contents are otherwise within normal limits. IMPRESSION: Tiny focus of acute infarct in the right parietal cortex. Left internal carotid artery occlusion to t he level of the carotid siphon, as noted on the prior CTA. No other acute intracranial finding detect ed. Results reported telephonically to Nola Valdez RN by Dr. Barton at 3:35 PM on 12/16/2024. Reviewed, dictated and finalized at location K. IMPRESSION: Tiny focus of acute infarct in the right parietal cortex. Left internal carotid artery occlusion to the level of the carotid siphon, as noted on the prior CTA . No other acute intracranial finding detected. Results reported telephonically to Nola Valdez RN by Dr. Barton at 3:35 PM o n 12/16/2024.
--- NOTE | 2024-12-16 08:10 | ECG_ITS ---
Test Date: 2024-12-16 08:26:06 Measurements Intervals [place] Rate: 75 P: 64 [place]: 172 QRS: 85 QRSD: 94 T: 44 QT: 372 QTc: 417 Interpretive Statements SINUS RHYTHM NORMAL ECG Compared to ECG 07/29/2024 08:32:06 No significant changes Electronically Signed On 12-16-2024 14:51:37 CDT by Shamar Freire D.O.
--- OUTSIDE RECORDS SUMMARY | 2024-12-16 08:11 | XMS_ITS ---
Author Organization [facility] Address [address] [address] Care Team Providers Care Lead Slot Technician Name Role Phone Larry Morel Primary Care Provider Noam Gar Unavailable [phone] REASON FOR VISIT Lab Results Encounters Encounter Location Date Provider Diagnosis [facility] [address] [facility] [address], [place] [address] 11/15/2024 Noam Horn Anemia D64.9 ASSESSMENTS Encounter Date Diagnosis Assessment Notes Treatment Notes Treatment Clinical Notes Section Notes 11/15/2024 Anemia (ICD-10 - D64.9) PLAN OF TREATMENT Future Test Test Name Order Date CBC (INCLUDES DIFF/PLT) 12/05/2024 FERRITIN 12/05/2024 Next Appt Details Provider Name:Noam Horn, 03/01/2025 10:15:00 AM, [address], [address],
--- OUTSIDE RECORDS SUMMARY | 2024-12-16 08:11 | XMS_ITS | Encounter Summary ---
Author Organization [facility] Address [address] [place] [address] Care Team Providers Care Stock Wetter Name Role Phone Pantera Bolivar MD Primary Care Provider [phone] Encounter Details Date Type Department Care Team (Late st Contact Info) Description 09/14/2000 Outpatient [facility] [address] [facility] 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 [address] [place] [address] Benign hypertension documented as of this encounter Visit Diagnoses Not on filedocumented in this encounter Care Teams Stock Wetter Relationship Specialty Start Date End Date Pantera Bolivar MD [address] [place] [address] [address] [place] [phone] PCP - General 05/02/15 documented as of this encounter
--- OUTSIDE RECORDS SUMMARY | 2024-12-16 08:11 | XMS_ITS | Encounter Summary ---
Author Organization [facility] Address [address] [place] [address] Care Team Providers Care General Manager Farm Name Role Phone Pantera Bolivar MD Primary Care Provider [phone] Encounter Details Date Type Department Care Team [...] on file Legal Sex Male 3:22 AM PORTFOLIO ADMINISTRATOR Gender Identity Male 09/13/2024 10:33 AM CDT Sexual Orientation Straight 09/13/2024 10 :33 AM CDT documented as of this encounter Plan of Treatment Upcoming Encounters Date Type Department Care Team (Late st Contact Info) Description 12/18/2024 Orders Only [facility] Oncology and Hematology - [place] [address] [facility] [address] [place] [address] Mikael Gomes MD [address] [facility] [address] [place] [address] Benign hypertension documented as of this encounter Procedures Procedure [...] FLUIDS AND STOOLS Edited Performing Organization Address [facility] de Phone Number INTERFACE SYSTEM Refer to clinic/hospital department * (ABNORMAL) GLUCOSE, CSF (08/31/2006 10:25 AM CDT) GLUCOSE, CSF 95(H) 40 - 70 mg/dL INTERFACE SYSTEM 08/31/2006 10:2 5 AM CDT us Cornelius Orlando MD BODY FLUIDS AND STOOLS Edited Performing Organization Address [facility] Phone Number INTERFACE SYSTEM Refer to [...] FLUIDS AND STOOLS Edited Performing Organization Address [facility] Phone Number INTERFACE SYSTEM Refer to clinic/hospital department documented in this encounter Visit Diagnoses Diagnosis Spinal stenosis, lumbar region, without neurogenic claudication- Primary Benign hypertension Essential hypertension, benign documented in this encounter Care Teams General Manager Farm Relationship Specialty Start Date End Date Pantera Bolivar MD [address] [place] [address] [address] [place] [address] PCP - General 05/02/15 documented as of this encounter
--- OUTSIDE RECORDS SUMMARY | 2024-12-16 08:11 | XMS_ITS | Encounter Summary ---
Author Organization [facility] Address 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 Gender Identity Male 09/13/2024 10:33 AM CDT Sexual Orientation Straight 09/13/2024 10 :33 AM CDT documented as of this encounter Plan of Treatment Upcoming Encounters Date Type Department Care Team (Late st Contact Info) Description 12/18/2024 Orders Only [facility] Oncology and Hematology - [place] [address] [facility] [address] [place] [address] Mikael Gomes MD [address] [facility] [address] [place] [address] Benign hypertension documented as of this encounter Procedures Procedure Name Priority Date/Time Associated Diagnosis Comments MRI LUMBAR W WO CONTRAST Timed Study 09/20/2007 9:13 AM CDT documented in this encounter Results * MRI LUMBAR W WO CONTRAST (09/20/2007 9:13 AM CDT) Anatomical Region Laterality Modality Spine Other 09/20/2007 9:13 AM CDT Narrative 09/20/2007 12:10 PM CDT [facility] [address], [place] [address] Admit Date: 09/20/2007 GIL PÉREZ Sex: M Admit Prov: ANICETO RAMIREZ Date: 1950 Primary Care Prov: REBEKAH WOODS CMRN: [id number] Room: [facility] SSN: [id number] IMAGING SERVICES Ordering Prov: N/A Accession Number: [id number] Interpretation MRI LUMBAR SPINE WITHOUT AND WITH [...] 11:11 Procedure Note Cee Pruett - 09/20/2007 [facility] [address] [place], [place] [address] Admit Date: 09/20/2007 GIL PÉREZ Sex: M Admit Prov: ANICETO RAMIREZ Date:1950 Primary Care Prov: REBEKAH WOODS CMRN: [id number] Room: [facility] SSN: [id number] IMAGING SERVICES Ordering Prov: N/A Interpretation MRI LUMBAR SPINE WITHOUT AND WITH IV CONTRAST 09/20/07 History: Bilateral leg pain and numbness, prior L5-S1 surgery [id number]. Lumbar sequences were performed, but are somewhat [...] this encounter Visit Diagnoses Diagnosis Backache, unspecified Benign hypertension Essential hypertension, benign documented in this encounter Care Teams Classroom Monitor Relationship Specialty Start Date End Date Rebekah Woods MD [address] [place] [address] [address] [place] [address] PCP - General 05/02/15 documented as of this encounter
--- OUTSIDE RECORDS SUMMARY | 2024-12-16 08:11 | XMS_ITS | Clinical Summary ---
Author Organization [facility] Address [address] [place] [address] Care Team Providers Care Clinical Sociologist Name Role Phone Larry Morel MD Primary Care Provider [phone] Emeli Allison MD Unavailable [phone] Issa Montana MD Unavailable [phone] Shamar Freire DO Unavailable Evan Loo MD Unavailable [phone] Timo Guallpa MD Unavailable Oswaldo Edmonds MD Unavailable [phone] Allergies Active Allergy Reactions Criticality Noted [...] CDT - 11/02/2024 2:37 PM CDT Surgery [place] [address] Rell Gong MD CYSTOSCOPY WITH TRANSURETHRAL RESECTION OF BLADDER TUMOR 11/02/2024 1:21 PM CDT Anesthesia Event [place] [address] Adelaide Rogers MD Jackson, Samantha Rae, [facility] 11/02/2024 10:08 AM CDT - 11/02/2024 3:27 PM CDT Hospital Encounter [facility] [place] [address] Rell Gong MD Discharge Disposition: Home or Self Care (Routine Discharge) 11/02/2024 Travel 11/02/2024 [place] [address] Rell Gong MD 10/26/2024 11:14 AM CDT - 10/26/2024 11:59 PM CDT [place] [address] Rell Gong MD Discharge Disposition: Home or Self Care (Routine Discharge) 10/26/2024 [facility] Message [facility] [place] [address] [facility] Provider Preparing for surgery 11/02/24 10/25/2024 Travel from Last 3 Months Social History Tobacco Use Types Packs/Day Years Used Date Smoking Tobacco: Former Cigarettes 2 12 1 9 - 1980 Smokeless Tobacco: Never Tobacco Cessation:Counseling [...] Case Notes SCHED BY FAX ON 10/24/24 [facility] PHONE ASSESSACCORDING TO FAX, THE CASE WILL START AT 1230 POCT GLUCOSE - DOCKED DEVICE Routine 11/02/2024 12:43 PM CDT PATHOLOGY Routine 11/02/2024 12:00 AM CDT URINE BACTERIA CULTURE Routine 10/26/2024 11:20 AM CDT Bladder cancer ([facility]/HCC HHS/HCC) from Last 3 Months Results * (ABNORMAL) POCT glucose (11/02/2024 2:01 PM CDT) Only the most recent of2 resultswithin the time period is included. GLUCOSE POC 111(H) 70 - 99 mg/dL 11/02/2024 2:37 PM CDT [facility] 11/02/2024 2:01 PM CDT us Rell Gong MD POCT ORDERABLES - DEVICE Final Result [facility] [address] [place] [address], * Pathology (11/02/2024 12:00 AM CDT) PATHOLOGY [facility] Department of Laboratory Medicine [address] [place] [phone] , extension [phone] Pathology Report Surgical Pathology Report Name: ROSCOE SUTHERLAND . 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 All immunohistochemical and histochemical tests were developed by and performed at [facility], [address] [place] [address]. All tests reported here have not been cleared or approved by the U.S. Food and Drug Administration (FDA). This laboratory is regulated under CLIA as qualified to perform high-complexity testing. These tests are used for clinical purposes. They should not be regarded as investigational or for research. Positive and negative controls show appropriate reactivity. Electronically Signed Out BRITTNEY ZIMMER MD [facility] TISSUE URINARY BLADDER STRUCTURE / Unknown 11/02/2024 1:10 PM CDT Rell Gong MD PATHOLOGY/CYTOLOGY ORDERABLES F inal Result Performing Organization Address City/[facility]/ZIP Co de Phone Number [facility] [address] [place] [address], [place] [phone] * URINE BACTERIA CULTURE (10/26/2024 11:20 AM CDT) SPEC DESCRIPTION URINE CLEAN CATCH 10/26/2024 11:16 AM CDT [facility] SPECIAL REQUESTS NO SPECIAL REQUEST 10/26/2024 11:16 AM CDT [facility] CULTURE RESULT NO GROWTH 2 DAYS 10/28/2024 8:49 AM CDT [facility] URINE SPECIMEN OBTAINED BY CLEAN CATCH PROCEDURE / Unknown 10/26/2024 11:20 AM CDT 10/26/2024 11:22 AM CDT Rell Gong MD MICROBIOLOGY - GENERAL ORDERABL ES Final Result [facility] [address] [place] [address], [place] [phone] from Last 3 Months Insurance MEDICARE [facility] Care Teams Clinical Sociologist Relationship Specialty Start Date End Date Larry Morel MD [address] [address] PCP - General FAMILY PRACTICE 09/23/23 Emeli Allison MD [address] [facility] [address] [facility] [place] [address] Physician NEUROLOGICAL SURGERY 09/23/23 Issa Montana MD [address] [facility] [place] [address] HAND SURGERY 09/23/23 Shamar Freire DO [address] [address] [address] [place] [address] CARDIOLOGY 09/23/23 Evan Loo MD [address] [place] [address] NEUROLOGY 09/11/24 Timo Guallpa MD [address] [place] [address] NEUROLOGY 09/11/24 Oswaldo Edmonds MD [address] [place] [address] NEUROLOGY 09/11/24
--- OUTSIDE RECORDS SUMMARY | 2024-12-16 08:11 | XMS_ITS | Continuity of Care Document ---
Author Organization [facility] Address [address] [place] [address] Phone Care Team Providers Care Photograph Retoucher Name Role Phone Moser OD, Oswaldo Unavailable Unavailable Procedures Procedure Date Eye Exam & Treatment Refraction Eye Exam & Treatment Refraction Eye Exam & Treatment Office/outpatient Visit, Est Office/outpatient Visit, Est Frames Deluxe [facility] - Medical No Charge Glasses Check Progressive Lens, Plastic [facility] - Medical Post-op Follow-up Visit Refraction Remove [...] Diagnoses Date Provider Providers Copied on Encounter [facility], [address], [place], [place], [address], [place] tel:[phone] [facility] No Information Sep-0 9-201 0 Moser OD Oswaldo. [address] , [address], [place], [place], [facility], [facility], . tel:[phone] Referring Provider: Pantera Bolivar MD, [address], [place], [address]. tel:[phone] [facility] [place] [facility], [address] [place] [address] [address], [place], [place], [address], tel:[phone] [facility] No Information 2 1-200 9 Moser OD Oswaldo. [address] [facility] , [address], [place], [facility], demolished [facility], . tel:[phone] Referring Provider: Pantera Bolivar MD, [address], [place], [address]. tel:[phone] [facility], [address] [place] [address] [address], [place], [place], [address], [place] tel:[phone] [facility] No Information 4-200 8 Moser OD Oswaldo. [address] , [address], [place], [facility], demolished [facility], . tel:[phone] Office/outpat ient Visit, [facility], [address] [place] [address] [address], [place], [place], [address], [place] tel:[phone] [facility] No Information 2 1-200 8 Moser OD Oswaldo. [address] , [address], [place], [facility], demolished [facility], . tel:[phone] Office/outpat ient Visit, [facility], [address] [place] [address] [address], [place], [place], [address], [place] tel:[phone] [facility] No Information 4-200 8 Moser OD Oswaldo. [address] , [address], [place], [address], [place]. tel:[phone] [facility], [address], [place], [place], [address], [place] tel:[phone] [facility] No Information Nov-2 7-200 7 [employer] . [address] [facility], [address], [place], [place], [address], [place]. tel:[phone] Consulting Provider: Uzma Larsen, [address] [place] [address], [facility], [facility]. tel:[phone] [facility], [address], [place], [place], [address], [place] tel:[phone] [facility] No Information Nov-0 1-200 7 Moser OD Oswaldo. [address] [facility] [address], [address], [place], [facility], [place], [place]. tel:[phone] [facility], [address], [place], [place], [address], [place] tel:[phone] [facility] No Information Oct-0 9-200 7 [employer] . [address] [facility], [address], [place], [place], [address], [place]. tel:[phone] Referring Provider: Sherwin Rubi, [address] [place], [place] [address], [place], [facility], demolished 2001. tel:[phone] lting Provider: Uzma Larsen, [address] [place] [address], [address]. tel:[phone] [facility], [address], [place], [place], [address], [place] tel:[phone] [facility] No Information Oct-0 5-200 7 Lucio Courtney. [facility] [address], [address], [place], [facility], [place], [place]. tel:[phone] [facility], [address], [place], [place], [address], [place] tel:[phone] [facility] No Information Sep-2 1-200 7 Doisy Edward. [address] , [address], [place], [facility], [facility] [place], . tel:[phone] [facility], [address] [place] [address] [address], [place], [place], [address], [place] tel:[phone] [facility] No Information Sep-2 1-200 7 Doisy Edward. [address] , [address], [place], [facility], [place], [place]. tel:[phone] [facility], [address], [place], [place], [address], [place] tel:[phone] [facility] No Information Sep-1 9-200 7 Doisy Edward. [address] , [address], [place], [facility], [place], [place]. tel:[phone] Referring Provider: Oswaldo Rubi, [facility] [address], [place], [facility], demolished [place]. tel:[phone] [facility], [address], [place], [place], [address], [place] tel:[phone] [facility] No Information Sep-1 2-200 7 Doisy Edward. [address] , [address], [place], [facility], [place], [place]. tel:[phone] [facility], [address], [place], [place], [address], [place] tel:[phone] [facility] No Information Sep-1 1-200 7 Doisy Edward. [address] , [address], [place], [facility], [place], [place]. tel:[phone] Referring Provider: Oswaldo Moser OD A, [address], [place], [address]. tel:[phone] Office/outpat ient Visit, [facility], [address], [place], [place], [address], [place] tel:[phone] [facility] No Information Sep-0 5-200 7 Lucio Courtney. [address] , [address], [place], [facility], [place], [place]. tel:[phone] Referring Provider: Sherwin Rubi, [address], [place], [facility], [facility] [place]. tel:[phone] [facility], [address] [place] [address] [address], [place], [place], [address], [place] tel:[phone] [facility] No Information Aug-2 3-200 7 Moser OD Oswaldo. [address] [facility] , [address], [place], [facility], [place], [place]. tel:[phone] Referring Provider: Pantera Bolivar MD, [address] [facility], [place], [address]. tel:[phone] Office/outpat ient Visit, [facility], [address] [place] [address] [address], [place], [place], [address], [place] tel:[phone] [facility] No Information Apr-0 2-200 7 Wanjonathan Levy. [address] [facility], [address], [place], [place], [address], [place]. tel:[phone] [facility], [address] [place] [address] [address], [place], [place], [address], [place] tel:[phone] [facility] No Information Jay-0 9-200 7 Moser OD Oswaldo. [address] [facility] [address], [address], [place], [address], [place]. tel:[phone] Family History Family Member Type Diagnosis Age At Onset No Information Payers Payer name Insurance type Covered republican ID Authoriza tion(s) No Information Social History [...]
--- OUTSIDE RECORDS SUMMARY | 2024-12-16 08:11 | XMS_ITS | Encounter Summary ---
Author Organization [facility] Address 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 Gender Identity Male 09/13/2024 10:33 AM CDT Sexual Orientation Straight 09/13/2024 10 :33 AM CDT documented as of this encounter Plan of Treatment Upcoming Encounters Date Type Department Care Team (Late st Contact Info) Description 12/18/2024 Orders Only [facility] [place] Oncology and Hematology - [place] [address] [facility] [address] [place] [address] Mikael Gomes MD [address] [facility] [address] [place] [address] Benign hypertension documented as of this encounter Procedures Procedure Name Priority Date/Time Associated Diagnosis Comments POC CREATININE Routine 09/02/2007 7:18 AM CDT documented in this encounter Results * POC CREATININE (09/02/2007 7:18 AM CDT) CREATININE POC 1.0 0.6 - 1.3 mg/dL [facility] Capillary blood specimen (specimen) 09/02/2007 7:18 AM CDT 09/02/2007 7:18 AM CDT us Aniceto Ramirez DO POINT OF CARE TESTING Final R esult [facility] [address] [place] [address] documented in this encounter Visit Diagnoses Diagnosis Backache, unspecified Benign hypertension Essential hypertension, benign documented in this encounter Care Teams Agricultural Systems Specialist Relationship Specialty Start Date End Date Pantera Bolivar MD [address] [place] [address] [address] [place] [id number] PCP - General 05/02/15 documented as of this encounter
--- OUTSIDE RECORDS SUMMARY | 2024-12-16 08:11 | XMS_ITS | Encounter Summary ---
Author Organization [facility] Address [facility] [place] [address] Care Team Providers Care Gastroenterology Technician Name Role Phone Larry Morel MD Primary Care Provider [phone] Emeli Allison MD Unavailable [phone] Issa Montana MD Unavailable [phone] Shamar Freire DO Unavailable Evan Loo MD Unavailable [phone] Timo Guallpa MD Unavailable Oswaldo Edmonds MD Unavailable [phone] Encounter Details Date Type Department Care Team (Late st Contact Info) Description 10/26/2024 BO.LT Message [facility] [place] [address] [facility] Provider Preparing for surgery 11/02/24 Social History [...] on filedocumented in this encounter Care Teams Gastroenterology Technician Relationship Specialty Start Date End Date Larry Morel MD [address] [place] [address] PCP - General FAMILY PRACTICE 09/23/23 Emeli Allison MD [address] [place] [address] Physician NEUROLOGICAL SURGERY 09/23/23 Issa Montana MD [address] [facility] [address] [place] [address] HAND SURGERY 09/23/23 Shamar Freire DO [address] [facility] [address] [place] [address] CARDIOLOGY 09/23/23 Evan Loo MD [address] [place] [address] NEUROLOGY 09/11/24 Timo Guallpa MD [address] [facility] [address] [place] [address] NEUROLOGY 09/11/24 Oswaldo Edmonds MD [address] [place] [address] NEUROLOGY 09/11/24 documented as of this encounter
--- OUTSIDE RECORDS SUMMARY | 2024-12-16 08:11 | XMS_ITS | Encounter Summary ---
Author Organization [facility] Address [facility] [place] [address] Care Team Providers Care Glass Sagger Name Role Phone Larry Morel MD Primary Care Provider [phone] Emeli Allison MD Unavailable [phone] Issa Montana MD Unavailable [phone] Shamar Freire DO Unavailable Evan Loo MD Unavailable [phone] Timo Guallpa MD Unavailable Oswaldo Edmonds MD Unavailable [phone] Encounter Details Date Type Department Care Team (Late st Contact Info) Description 11/02/2024 Prep for Procedure [facility] [address] [place], [place] [id number] Rell Worthy MD [address] [facility] [address] [place], [place] [id number] Social History Tobacco Use Types Packs/Day Years [...] PM CDT Trista Crocker RN Active * [place] Suicide Severity Rating Scale (Screener/Recent Self-Report) Question [...] URINE CLEAN CATCH 10/26/2024 11:16 AM CDT [facility] SPECIAL REQUESTS NO SPECIAL REQUEST 10/26/2024 11:16 AM CDT [facility] CULTURE RESULT NO GROWTH 2 DAYS 10/28/2024 8:49 AM CDT [facility] URINE SPECIMEN OBTAINED BY CLEAN CATCH PROCEDURE / Unknown 10/26/2024 11:20 AM CDT 10/26/2024 11:22 AM CDT us Rell Worthy MD MICROBIOLOGY - GENERAL ORDERABL ES Final Result [facility] [address] [place] [address], [place] [phone] documented in this encounter Visit Diagnoses Diagnosis Bladder cancer ([facility]/HCC)- Primary Malignant neoplasm of bladder, part unspecified documented in this encounter Care Teams Glass Sagger Relationship Specialty Start Date End Date Larry Morel MD [address] [address] PCP - General FAMILY PRACTICE 09/23/23 Emeli Allison MD [address] [place] [address] Physician NEUROLOGICAL SURGERY 09/23/23 Issa Montana MD [address] [facility] [address] [place] [address] HAND SURGERY 09/23/23 Shamar Freire DO [address] [place] [address] CARDIOLOGY 09/23/23 Evan Loo MD [address] [place] [address] NEUROLOGY 09/11/24 Timo Guallpa MD [address] [place] [address] NEUROLOGY 09/11/24 Oswaldo Edmonds MD [address] [place] [address] NEUROLOGY 09/11/24 documented as of this encounter
--- OUTSIDE RECORDS SUMMARY | 2024-12-16 08:12 | XMS_ITS | Clinical Summary ---
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 6th [place] [address] [place] [address] Issa Montana MD Arthritis of carpometacarpal (CMC) joint of left thumb (Primary Dx); Arthritis, degenerative, localized, primary, hand, left 10/24/2024 - 10/24/2024 11:59 PM CDT Hospital Encounter [facility] - Imaging [phone] Discharge Disposition: Discharge to home or self care 10/04/2024 1:29 PM CDT Anesthesia Event [facility] Operating Room [address] [place] [phone] Tonny Stafford, Janae Cm CRNA 10/04/2024 12:30 PM CDT - 10/04/2024 1:[address] [facility] Operating Room [address] [place] [phone] Rell Worthy MD Cystoscopy 10/04/2024 10:19 AM CDT - 10/04/2024 4:10 PM CDT Hospital Encounter [facility] Operating Room [address] [place] [phone] Rell Worthy MD Gross hematuria Discharge Disposition: Discharge to home or self care 10/03/2024 12:00 PM CDT Pre-Admission Testing [facility] Pre Anesthesia Testing [address] [place] [phone] 10/02/[address] 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 Gender Identity Not on file Sexual [...] 10/04/2025 10/04/2024 Medical Devices Implanted Type Area Watermelon Inspector Device Identifier Shelf Expiration Date Model / Serial / Lot [employer] Ar-8978-Cp Internalbrace Kit Hand Wrist Set Implant Ligament Augmentation - [id number] Implanted:Qty: 1 on 08/14/2020 by Issa Montana MD at [facility] Right: Thumb [employer] [id number] 06/16/2025 AR-8978-C P / / [id number] Small [employer] Mcp-50 Mcp 50 Joint Finger Silicone Ii Sterile Latex Free - [id number] Implanted:Qty: 1 on 08/14/2020 by Issa Montana MD at [facility] Right: Index Finger [employer] [id number] 01/14/2023 MCP-50 / / [id number] Procedures Procedure Name Priority Date/Time Associated Diagnosis Comments TN ARTHROCENTESIS ASPIR&/INJ SMALL JT/BURSA W/O US Routine 11/28/2024 9:30 AM CDT Arthritis, degenerative, localized, primary, hand, left TN ARTHROCENTESIS ASPIR&/INJ SMALL JT/BURSA W/O US Routine 11/28/2024 9:30 AM CDT Arthritis of carpometacarpal (CMC) joint of left thumb CT BODY OUTSIDE REFERENCE Routine 10/24/2024 12:00 AM CDT POCT GLUCOSE DEVICE Routine 10/04/2024 2 :19 PM CDT SURGICAL PATHOLOGY Routine 10/04/2024 1: 54 PM CDT Gross hematuria TN AN PROCEDURE PLACEHOLDER Routine 10/04/2024 1:40 PM CDT TN AN ELECTIVE SUPRAGLOTTIC AIRWAY Routine 10/04/2024 1:40 [...] Recently Relevant to Health Maintenance Results * TN ARTHROCENTESIS ASPIR&/INJ SMALL JT/BURSA W/O US (11/28/2024 [...] MD IN CLINIC/BEDSIDE ORDERABLES Final Result * TN ARTHROCENTESIS ASPIR&/INJ SMALL JT/BURSA W/O US (11/28/2024 [...] IN CLINIC/BEDSIDE ORDERABLES Final Result * CT Body Outside Reference (10/24/2024 12:00 AM CDT) Narrative RAD_PACS_OUTSIDE_FILM_[facility] - 12/14/2024 6:52 AM CDT This order has been auto-finalized and does not contain a result. us Provider Transcribed Order IMG CT PROCEDURES Fin al Result RAD_PACS_OUTSIDE_FILM_[facility] * POCT glucose (10/04/2024 2:19 PM CDT) Glucose, POC 127 70 - 199 mg/dL Comment: For Glucose values <35 mg/dl when Hematocrit is >60 mg/dl,the test may not accurately detect significant hypoglycemia,and testing in the Laboratory should be considered if clinically indicated. POC Performer [id number] [facility] Blood 10/04/2024 2:19 PM CDT 10/04/2024 2:19 PM CDT us Rell Worthy MD LAB POCT ORDERABLES - DEVICE F inal Result [facility] [address] [place] [address] * Surgical pathology (10/04/2024 1:54 PM CDT) Tissue (Mass/Tumor/Lesio n) 10/04/2024 1:54 PM CDT Comment:Placed in Formalin a t end of procedure Narrative PATHOLOGY [facility] - 10/10/2024 3:15 PM CDT [place] [address] [place], [place] [address] Tele: Marine Diaz MD - Bobbin Trucker Note to Patients: This report may contain [...] details. SURGICAL PATHOLOGY REPORT Patient Name: ROSCOE SUTHERLANDWong ORR Address: [address] [place] [address] Gender: M : 1950 (Age: 74) Service: Surgery Location: [facility] [place] #: [id number] Patient Type: [facility] [place] Taken: 10/04/2024 Received 10/04/2024 [...] filtered and submitted entirely in cassette A1. [facility] MICROSCOPIC DESCRIPTION: Histologic sections contain multiple disrupted/cauterized [...] level is examined. Clerical Data Follows A; [id number], [id number], [id number] REPORT IMAGES AND/OR SCANNED DOCUMENTS ONLY VIEWABLE IN PDF FORMAT The immunohistochemical test(s) cited in this report, if any, was developed and its performance characteristics determined by [facility] Pathology Department. It has not been cleared or approved by the U.S. Food and Drug Administration. The FDA has determined that such clearance or approval is not necessary. This test is used for clinical purposes. It should not be regarded as investigational or for research. [facility] Laboratory is certified under the Clinical Laboratory [...] part or completely in the following laboratories: [facility], [facility] [place] [address] [facility], [address] [place] [address]. Rell Worthy MD LAB PATHOLOGY ORDERABLES Final Result PATHOLOGY [facility] Laboratory Receiving [address] [place] [address] * TN AN ELECTIVE SUPRAGLOTTIC AIRWAY, TN AN PROCEDURE PLACEHOLDER (10/04/2024 1:40 PM CDT) Narrative Janae Campo CRNA - 10/04/2024 1:40 PM CDT Janae Campo CRNA 10/04/2024 1:41 PM Airway Patient location: OR Urgency: elective Indications for airway management: anesthesia Difficult airway: no Staff: Supervising provider: Tonny Stafford DO Placed by: PHLEBOTOMY DIRECTOR: Janae Campo CRNA Emergent airway documentation: Risks and benefits discussed: yes Consent obtained: yes Consent given by: patient Airway prep: Preoxygenated: yes Patient position: sniffing Mask difficulty assessment: 0 - not attempted Sedation level during airway: GA Final airway details: Final airway type: supraglottic airway Final supraglottic airway: [place] SGA size: 5 Number of attempts: 1 [...] be considered if clinically indicated. POC Performer [id number] [facility] Blood 10/04/2024 11:0 8 AM CDT 10/04/2024 11:08 AM CDT Rell Worthy MD LAB POCT ORDERABLES - DEVICE F inal Result Performing Organization Address [facility]/ZIP Co de Phone Number [facility] [address] [place] [address] * eGFR (08/05/2024 6:10 AM CDT) eGFR [...] ORDERABLES Final Resul t Performing Organization Address [facility]/ZIP Co de Phone Number [facility] [address] [place] [address] * (ABNORMAL) Hemoglobin A1c (08/05/2024 6:10 AM CDT) Hgb A1C 7.1(H) 4.0 - 5.6 % Estimated Average Glucose 157 mg/dL [facility] Comment: The ADA recommends reporting an estimated Average Glucose (eAG) with all Hemoglobin A1c results using the equation derived from a study of 507 normal and diabetic adults. Minority populations were underrepresented and children were not included. (Diabetes Care 31:1442-6075, 2008). The eAG is not equivalent to a fasting glucose. Blood 08/05/2024 6:10 AM CDT 08/05/2024 6:45 AM CDT us Shellie Roldan MD LAB BLOOD ORDERABLES Final Resul t [facility] [address] Department [place] [address] * Lipid panel (08/05/2024 6:10 AM CDT) [...] revised on 2018. Triglycerides 65 <=149 mg/dL [facility] Comment: Interpretive Data Ages < or = [...] revised on 2018. HDL 42 >=40 mg/dL [facility] Comment: Interpretive Data Ages < or = [...] on 2018. LDL, calculated 56 <=129 mg/dL [facility] Comment: Interpretive Data Ages < or = [...] revised on 2024. Non-HDL Cholesterol 70 mg/dL [facility] Comment: Interpretive Data Ages < or = [...] last revised on 2018. Chol/HDL ratio 3 ROS [facility] Blood 08/05/2024 6:10 AM CDT 08/05/2024 6:45 AM CDT us Shellie Roldan MD LAB BLOOD ORDERABLES Final Resul t [facility] [address] Department [place] [address] from Last 3 Months or Most Recently Relevant to Health Maintenance Insurance MEDICARE [facility] MEDICARE SUPPLEMENT MEDICARE [facility] MEDICARE BLUE CROSS MEDICARE SUPPLEMENT Advance Directives For more information, please contact: [phone] * Full Code (Latest Code Status on File) Date Activated Date Inactivated Comments 08/05/2024 12:34 AM 08/06/2024 7:16 PM Care Teams Construction Coordinator Relationship Specialty Start Date End Date Larry Morel MD PCP - General Family Medicine 12/05/19 Noam Horn MD [address] [place] [address] Referring Physician Endocrinology Diabetes & Metabolism 07/29/20 Hao Perez MD [address] [place] [address] Referring Physician Ophthalmology 07/29/20 Jose Alfredo Hobson MD [address] [facility] [place] [address] Consulting Physician Radiation Oncology 12/08/24 [place] [address] [place] [address] Consulting Physician Urology 12/08/24 Patrick Meza MD [address] [facility] [place] [address] Medical Oncologist/Hematologis t Medical Oncology 12/12/24
--- OUTSIDE RECORDS SUMMARY | 2024-12-16 08:12 | XMS_ITS | Patient Health Record ---
Author Organization [facility] Address [address] [address] Care Team Providers Care Snowboarding Instructor Name Role Phone Larry Morel Primary Care Provider Noam Gar Unavailable [phone] Linnea Orlando Unavailable [phone] ALLERGIES No Known Allergies RESULTS Component Value Reference Range Notes Hemoglobin A1c Reviewed date:03/22/2024 12:26:54 PM Interpretation: Performing Lab:[facility], [address] [facility]3], Phone - [phone], Director - Ja Notes/Report: Hemoglobin A1c 6.7 4.8-5.6 % . Prediabetes: 5.7 - 6.4 Diabetes: >6.4 Glycemic control for adults with diabetes: <7.0 Comp Metabolic Panel (14) Reviewed date:03/22/2024 12:27:10 PM Interpretation: Performing Lab:[facility], [address] [facility]3], Phone - [phone], Director - PhDJosh Notes/Report: Glucose 148 70-99 [...] A1c Reviewed date:06/30/2024 12:24:52 PM Interpretation: Performing Lab:[facility] [place], [address] [facility], Phone - [phone], Director - [facility] Notes/Report: Hemoglobin A1c 7.6 4.8-5.6 % . Prediabetes: 5.7 - 6.4 Diabetes: >6.4 Glycemic control for adults with diabetes: <7.0 Comp Metabolic Panel (14) Reviewed date:06/30/2024 12:25:24 PM Interpretation: Performing Lab:[facility] [place], [address] [facility], Phone - [phone], Director - [facility] Notes/Report: Glucose 89 70-99 mg/dL BUN [...] et Reviewed date:11/15/2024 11:41:41 PM Interpretation: Performing Lab:[facility], [address] [facility], Phone - [phone], Director - Ja Notes/Report: WBC 7.2 3.4-10.8 [...] (14) Reviewed date:11/15/2024 03:28:23 PM Interpretation: Performing Lab:[facility] [place], [address] [facility], Phone - [phone], Director - Ja Notes/Report: Glucose 198 70-99 [...] Orally Once a Day Active TRUEplus Pen [place] 31G X 8 MM USE DIRECTED 5 TIMES A DAY for 90 Active metFORMIN HCl ER 500 MG 2 tablets Orally Two Times a Day for 90 days Active Levothyroxine Sodium 175 MCG 1 tablet in the morning on an empty stomach Orally Once a day for 90 days Active Vitamin B-12 1000 MCG 1 tablet Orally Once a day 0 01/27/2019 Active Gabapentin 300 MG 1 Capsule Orally Two Times a Day Active Rosuvastatin Calcium 10 MG 1 tablet Orally Once a day Active Eliquis 5 MG 1 tablet Orally Tw a 07/21/2023 Active Atenolol 50 MG 1 tablet Orally Once a day Active Dexcom G7 Water Filterer - as directed Active Fenofibrate Micronized 200 [...] 02/08/2020 Administered Pt received Influenza HD Lot #[id number] EXP November 13 2020 PROBLEMS Problem Type ICD Code Onset Dates Problem Status W/U Status Risk SNOMED Code Notes Problem Peripheral neuropathy (G62.9) Active confirmed Periphera l neuropathy (788434998) Problem CVA (cerebral infarction) (I63.9) Active confirmed Cerebrov ascular accident (880605048) Problem Benign hypertension (I10) Active confirmed 87142483 Problem Vitamin D deficiency, unspecified (E55.9) Active confirmed Vitamin D deficiency (60612727) Problem Type 2 diabetes mellitus with hyperglycemia (E11.65) Active confirmed Hyperglycemia d ue to type 2 diabetes mellitus (054259473155047) Problem Kidney stone (N20.0) Active confirmed Kidney stone (63411511) Problem Hypercalcemia (E83.52) Active confirmed Hypercalcemia (29400987) Problem 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) Active confirmed Mixed hyperlipidemia (082371742) Problem Unspecified hypothyroidism (E03.9) Active confirmed 29334806 Problem 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) Active confirmed 990212139 Problem Thrombophlebitis (I80.9) Active confirmed Thrombophlebiti s (91426202) Problem Deficiency of other specified B group vitamins (E53.8) Active confirmed Vitamin B deficiency (99048733) Problem 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) Active confirmed Glucose product (071775295) VITAL SIGNS Heart Rate 84 /min 11/14/2024 Blood pressure diastolic 70 mm Hg 11/14/2024 Height 73 in 11/14/2024 Blood pressure systolic 130 mm Hg 11/14/2024 Weight 208.0 lbs 11/14/2024 BMI 27.44 kg/m2 11/14/2024 Encounters Encounter Location Date Provider Diagnosis [facility] [address] [place] [phone] 03/10/2024 Linnea Orlando [facility] [address] [place] [phone] 03/21/2024 Noam Oiknine Type 2 diabetes mellitus [...] and Kidney stone N20.0 [facility] [address] [place] [phone] 06/29/2024 Noam Oiknine Type 2 diabetes mellitus [...] and Kidney stone N20.0 [facility] [address] [place] [phone] 10/05/2024 Noam Oiknine [facility] [address] [place] [phone] 11/14/2024 Noam Oiknine Type 2 diabetes mellitus [...] Kidney stone N20.0 [facility] [address] [address] 12/29/2023 Noam Oiknine Type 2 diabetes mellitus with hyperglycemia E11.65 [facility] [address] [address] 01/03/2024 Noam Oiknine Type 2 diabetes mellitus with hyperglycemia E11.65 [facility] [address] [address] 01/03/2024 Noam Oiknine Unspecified hypothyroidism E03.9 [facility] [address] [address] 03/08/2024 Noam Oiknine Type 2 diabetes mellitus with hyperglycemia E11.65 [facility] [address] [address] 03/14/2024 Noam Oiknine [facility] [address] [address] 03/23/2024 Noam Oiknine Type 2 diabetes mellitus with hyperglycemia E11.65 [facility] [address] [address] 05/22/2024 Noam Oiknine Type 2 diabetes mellitus with hyperglycemia E11.65 [facility] [address] [address] 06/29/2024 Noam Oiknine [facility] [address] [address] 08/02/2024 Noam Oiknine [facility] [address] [address] 08/08/2024 Noam Oiknine Type 2 diabetes mellitus with hyperglycemia E11.65 [facility] [address] [address] 09/06/2024 Noam Oiknine Type 2 diabetes mellitus with hyperglycemia E11.65 [facility] [address] [address] 09/06/2024 Noam Oiknine Type 2 diabetes mellitus with hyperglycemia E11.65 [facility] [address] [address] 10/19/2024 Noam Oiknine Unspecified hypothyroidism E03.9 [facility] [address] [address] 11/15/2024 Noam Oiknine Anemia D64.9 [facility] [address] [address] 11/27/2024 Noam Oiknine Type 2 diabetes mellitus [...] 03/21/[address] Noam Horn dictates using Lignol Speaking software. Masseur/Masseuse variances may occur. Since our last visit [...] 06/29/[address] Noam alfonso dictates using Lignol Speaking software. Masseur/Masseuse variances may occur. Since our last visit [...] 11/14/[address] Noam alfonso dictates using MileIQ software. Masseur/Masseuse variances may occur. Since our last visit [...] Name:Noam Horn, 03/01/2025 10:15:00 AM, [address], [address], Insurance Providers Payer Name Payer Address Payer Phone Subscriber Number Group Number Insured Name Patient Relationship to Insured Coverage Start Date Coverage End Date Medicare [address] [address] [place] [address] [phone] [id number] Roscoe Pérez Sr Self - patient is the insured Blue Cross/Blue Shield (USE THIS ONE) [address] [place] [address] [id number] Roscoe Pérez Sr Self - patient is [...] BCG treatment---dr rubio--DR GONG --- [facility] Surgical History Surgery Date(Month/Year) esophageal stricture 1998 kidney stone removal/ stent (2003) 2002 lumbar disc surgery cervical fusion orbital decompression and eye retraction 1980 left hip arthroplasty 2010 trigger finger release 2012 right knee replacement kidney stone removal/ stent 2018 lithotripsy procedure 2018 kidney stones removal, stent put in, jonan nt got infected took out 02/2020 Thumb and Pointer finger Surgery 07/2020 kidney stent 11/2020 biospy x2 laminectomy L3-L5 06/2023 Port placement for cancer treatment 02/15 024 BLADDER BIOPSY 10/2024 Hospitalization History Reason Date(Month/Year) heparin window 2010 Kidney stones 02/2020 Kidney Stones 11/2020 Covid 01/2021 Falls/balance issues 04/2023 MULTIPLE MINI STROKES 07/2024
--- OUTSIDE RECORDS SUMMARY | 2024-12-16 08:12 | XMS_ITS | Clinical Summary ---
Author Organization [facility] Address [address] [place] [address] Phone Care Team Providers Care Vice President Safety Name Role Phone Larry Morel MD Primary Care Provider [phone] Allergies No known active allergies Medications atenolol [...] solution pen-injector 06/09/2021 Active TRUEplus 5-Bevel Pen [place] 31G X 8 MM misc USE FIVE [...] on file Legal Sex Male 8:47 AM [facility] Gender Identity Not on file Sexual Orientation [...] 1999 Influenza Vaccine (#1) 2025 Insurance MEDICARE [facility] [employer] CROSS Care Teams Vice President Safety Relationship Specialty Start Date End Date Larry Morel MD [address] [place] [id number] PCP - General Family Medicine 04/28/21
--- OUTSIDE RECORDS SUMMARY | 2024-12-16 08:12 | XMS_ITS | Patient Health Record ---
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) Active confirmed Problem Lumbosacral spondylosis without myelopathy (41840863) Spondylosis of lumbosacral region without myelopathy or radiculopathy (M47.817) Active confirmed Problem Enthesopathy of hip region (94784209) 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 Plan Of Treatment No Information Insurance Providers Payer Name Payer Address Payer Phone Subscriber Number Group Number Insured Name Patient Relationship to Insured Coverage Start Date Coverage End Date MEDICARE SERVICES [address] [address] [place], [place] [id number] null, null Self - patient is the insured Medications Administered Medication Instructions Date of Administration Dosage Notes Bilateral L3-S1 MBPR (lumbar facet) RF Denervation with fluoroscopy 12/07/2019 Bilateral L4/5 and L5/S1 Fac et Joint Injections with Fluoroscopy 02/09/2019 Bilateral L4/5 and L5/S1 Fac et Joint Injections with Fluoroscopy 08/03/2019 Trigger Point Injection 12/21/2018
--- OUTSIDE RECORDS SUMMARY | 2024-12-16 08:12 | XMS_ITS | Referral Summary ---
Author Organization [facility] Address [address] [place] [address] Care Team Providers Care Brand Lead Name Role Phone Larry Morel MD Primary Care Provider Noam Horn MD Unavailable [phone] Hao Perez MD Unavailable [phone] Jose Alfredo Hobson MD Unavailable [phone] Rell Worthy MD Unavailable [phone] Patrick Meza MD Unavailable [phone] Encounters Date Type Department Care Team Description 11/28/2024 9:30 AM CDT Office Visit [facility] Orthopaedic Surgery [facility] 6th [place] [address] [place] [phone] Issa Montana MD Arthritis of carpometacarpal (CMC) joint of left thumb (Primary Dx); Arthritis, degenerative, localized, primary, hand, left 10/24/2024 - 10/24/2024 11:59 PM CDT Hospital Encounter [facility] - Imaging [phone] Discharge Disposition: Discharge to home or self care 10/04/2024 12:30 PM CDT - 10/04/2024 1:[address] [facility] Operating Room [address] [place] [address] Rell Worthy MD Cystoscopy 10/04/2024 1:29 PM CDT Anesthesia Event [facility] Operating Room [address] [place] [address] Tonny Stafford DO Eubanks, Marianna, CRNA 10/04/2024 10:19 AM CDT - 10/04/2024 4:10 PM CDT Hospital Encounter [facility] Operating Room [address] [place] [address] Rell Worthy MD Gross hematuria Discharge Disposition: Discharge to home or self care 10/03/2024 12:00 PM CDT Pre-Admission Testing [facility] Pre Anesthesia Testing [address] [place] [address] 10/02/[address] 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 Gender Identity Not on file Sexual Orientation [...] on file Medical Devices Implanted Type Area Apprentice Painter Brush Device Identifier Shelf Expiration Date Model / Serial / Lot [employer] Ar-8978-Cp Internalbrace Kit Hand Wrist Set Implant Ligament Augmentation - [id number] Implanted:Qty: 1 on 08/14/2020 by Issa Montana MD at [facility] Right: Thumb [employer] [id number] 06/16/2025 AR-8978-C P / / [id number] Small Bone Innovations Mcp-50 Mcp 50 Joint Finger Silicone Ii Sterile Latex Free - [id number] Implanted:Qty: 1 on 08/14/2020 by Issa Montana MD at [facility] Right: Index Finger [facility] [id number] 01/14/2023 MCP-50 / / [id number] Procedures Procedure Name Priority Date/Time Associated Diagnosis Comments CO ARTHROCENTESIS ASPIR&/INJ SMALL JT/BURSA W/O US Routine 11/28/2024 9:30 AM CDT Arthritis, degenerative, localized, primary, hand, left CO ARTHROCENTESIS ASPIR&/INJ SMALL JT/BURSA W/O US Routine 11/28/2024 9:30 AM CDT Arthritis of carpometacarpal (CMC) joint of left thumb CT BODY OUTSIDE REFERENCE Routine 10/24/2024 12:00 AM CDT POCT GLUCOSE DEVICE Routine 10/04/2024 2 :19 PM CDT SURGICAL PATHOLOGY Routine 10/04/2024 1: 54 PM CDT Gross hematuria CO AN PROCEDURE PLACEHOLDER Routine 10/04/2024 1:40 PM CDT CO AN ELECTIVE SUPRAGLOTTIC AIRWAY Routine 10/04/2024 1:40 [...] Recently Relevant to Health Maintenance Results * CO ARTHROCENTESIS ASPIR&/INJ SMALL JT/BURSA W/O US (11/28/2024 9:30 AM CDT) Issa Martinez MD - 11/28/2024 9:30 AM CDT Issa Montana MD 11/28/2024 10:38 AM Small Joint Injection: L index MCP Performed by: Issa Montana MD Authorized by: Isas Montana MD Small Joint Injection/Aspiration: Consent Given [...] MD IN CLINIC/BEDSIDE ORDERABLES Final Result * CO ARTHROCENTESIS ASPIR&/INJ SMALL JT/BURSA W/O US (11/28/2024 [...] Outside Reference (10/24/2024 12:00 AM CDT) Narrative RAD_PACS_OUTSIDE_FILM_[facility] - 12/14/2024 6:52 AM CDT This order has been auto-finalized and does not contain a result. us Provider Transcribed Order IMG CT PROCEDURES Fin al Result Performing Organization Address City/[facility]/ZIP Co de Phone Number RAD_PACS_OUTSIDE_FILM_[facility] * POCT glucose (10/04/2024 2:19 PM CDT) Glucose, POC 127 70 - 199 mg/dL Comment: For Glucose values <35 mg/dl when Hematocrit is >60 mg/dl,the test may not accurately detect significant hypoglycemia,and testing in the Laboratory should be considered if clinically indicated. POC Performer [id number] [facility] Blood 10/04/2024 2:19 PM CDT 10/04/2024 2:19 PM CDT Rell Worthy MD LAB POCT ORDERABLES - DEVICE F inal Result Performing Organization Address [facility] Co de Phone Number [address] Department of Laboratories [place], [place] [id number] * Surgical pathology (10/04/2024 1:54 PM CDT) Tissue (Mass/Tumor/Lesio n) 10/04/2024 1:54 PM CDT Comment:Placed in Formalin a t end of procedure Narrative PATHOLOGY [facility] - 10/10/2024 3:15 PM CDT [address] [address] Tele: Marine Diaz MD - Health Promoter Note to Patients: This report may contain [...] REPORT Patient Name: ROSCOE SUTHERLAND SR. Address: [address] [place] [address] Gender: M : 1950 (Age: 74) Service: Surgery Location: [facility], Hospital #: [id number] Patient Type: [facility] [place] SURGERY Taken: 10/04/2024 Received 10/04/2024 [...] filtered and submitted entirely in cassette A1. [facility]: Histologic sections contain multiple [...] level is examined. Clerical Data Follows A; 83910, 29512, 85928 REPORT IMAGES AND/OR SCANNED DOCUMENTS ONLY VIEWABLE IN PDF FORMAT The immunohistochemical test(s) cited in this report, if any, was developed and its performance characteristics determined by [facility] Pathology Department. It has not been cleared or approved by the U.S. Food and Drug Administration. The FDA has determined that such clearance or approval is not necessary. This test is used for clinical purposes. It should not be regarded as investigational or for research. [facility] Laboratory is certified under the Clinical [...] or completely in the following laboratories: [facility], [address] [place] [address], [address] [place] [address]. us Rell Worthy MD LAB PATHOLOGY ORDERABLES Final Result PATHOLOGY [facility] Laboratory Receiving [address] [place] [address] * CO AN ELECTIVE SUPRAGLOTTIC AIRWAY, CO AN PROCEDURE PLACEHOLDER (10/04/2024 1:40 PM CDT) Narrative Janae Campo CRNA - 10/04/2024 1:40 PM CDT Janae Campo CRNA 10/04/2024 1:41 PM Airway Patient location: OR Urgency: elective Indications for airway management: anesthesia Difficult airway: no Staff: Supervising provider: Tonny Stafford DO Placed by: BEATER OPERATOR: Janae Campo CRNA Emergent airway documentation: Risks and benefits discussed: yes Consent obtained: yes Consent given by: patient Airway prep: Preoxygenated: yes Patient position: sniffing Mask difficulty assessment: 0 - not attempted Sedation level during airway: GA Final airway details: Final airway type: supraglottic airway Final supraglottic airway: [place] SGA size: 5 Number of attempts: 1 [...] be considered if clinically indicated. POC Performer [id number] [facility] Blood 10/04/2024 11:0 8 AM CDT 10/04/2024 11:08 AM CDT Rell Worthy MD LAB POCT ORDERABLES - DEVICE F inal Result [facility] [address] [place] [address] * eGFR (08/05/2024 6:10 AM CDT) Pathologist [facility] eGFR 85 >=60 mL/min/1. 73 m2 Comment: [...] ORDERABLES Final Resul t Performing Organization Address [facility] de Phone Number [facility] [address] [facility] [employer] [place], [place] [phone] * (ABNORMAL) Hemoglobin A1c (08/05/2024 6:10 AM CDT) Pathologist [facility] Hgb A1C 7.1(H) 4.0 - 5.6 % Estimated Average Glucose 157 mg/dL [facility] Comment: The ADA recommends reporting an estimated Average Glucose (eAG) with all Hemoglobin A1c results using the equation derived from a study of 507 normal and diabetic adults. Minority populations were underrepresented and children were not included. (Diabetes Care 31:8344-0959, 2008). The eAG is not equivalent to a fasting glucose. Blood 08/05/2024 6:10 AM CDT 08/05/2024 6:45 AM CDT Shellie Roldan MD LAB BLOOD ORDERABLES Final Resul t Performing Organization Address [facility] de Phone Number [facility] [address] [facility] [place] [address] * Lipid panel (08/05/2024 6:10 AM CDT) [facility] Cholesterol 112 30 - 199 mg/dL Comment: [...] NCEP Expert Panel. Circulation 2004;110:227 3. Lowell Green al. JONATHAN Cardiol. 2020 September 14;5(5):540-548. doi: [...] last revised on 2018. Chol/HDL ratio 3 [facility] Blood 08/05/2024 6:10 AM CDT 08/05/2024 6:45 AM CDT us Shellie Roldan MD LAB BLOOD ORDERABLES Final Resul t [facility] [address] [place] [address] from Last 3 Months or Most Recently Relevant to Health Maintenance Insurance MEDICARE [facility] MEDICARE [place] [address] [facility] MEDICARE BLUE CROSS MEDICARE SUPPLEMENT Advance Directives For more information, please contact: [phone] * Full Code (Latest Code Status on File) Date Activated Date Inactivated Comments 08/05/2024 12:34 AM 08/06/2024 7:16 PM Care Teams Brand Lead Relationship Specialty Start Date End Date Larry Morel MD PCP - General Family Medicine 12/05/19 Noam Horn MD [address] [place] [address] Referring Physician Endocrinology Diabetes & Metabolism 07/29/20 Hao Perez MD [address] [place] [address] Referring Physician Ophthalmology 07/29/20 Jose Alfredo Hobson MD [address] [place] [address] Consulting Physician Radiation Oncology 12/08/24 [place] [address] [address] Consulting Physician Urology 12/08/24 Patrick Meza MD [address] [place] [address] Medical Oncologist/Hematologis t Medical Oncology 12/12/24
--- OUTSIDE RECORDS SUMMARY | 2024-12-16 08:12 | XMS_ITS | Clinical Summary ---
[facility] Organization [facility] Address [address] [place] [address] Care Team Providers Care Environmental Conservation Professor Name Role Phone Pantera Bolivar MD Primary Care Provider [phone] Allergies No known active allergies Medications tadalafil [...] Encounters Date Type Department Care Team Description 12/11/2024 Orders Only [facility]cology [facility]ology - [place] [address] Mikael Gomes MD Carcinoma in situ of bladder 12/04/2024 Orders Only [facility] - [place] [address] Mikael Gomes MD Benign hypertension 11/27/2024 Orders Only [facility] - [place] [address] [place] [address] Mikael Gomes MD 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 Orders Only [facility] - [place] [address] Mikael Gomes MD Benign hypertension 11/13/2024 Orders Only [facility] - [place] Neena [address] [place] [address] Mikael Gomes MD Carcinoma in situ of bladder 11/06/2024 Orders Only [facility] - [place] [address] [place] [phone] Mikael Gomes MD Benign hypertension 10/31/2024 External Device Data STL ABSTRACTION Provider, Abstract 10/30/2024 Orders Only [facility] - [place] [address] Mikael Gomes MD Carcinoma in situ of bladder 10/23/2024 Orders Only [facility] - [place] [address] [place] [address] Mikael Gomes MD Benign hypertension 10/16/2024 Orders Only [facility] - [place] [address] [place] [address] Mikael Gomes MD Carcinoma in situ of bladder 10/09/2024 Orders Only [facility] - [place] [address] [place] [phone] Mikael Gomes MD Benign hypertension 10/05/2024 External Device Data STL ABSTRACTION Provider, Abstract 10/05/2024 External Device Data STL ABSTRACTION Provider, Abstract 10/04/2024 External Device Data STL ABSTRACTION Provider, Abstract 10/04/2024 External Device Data STL ABSTRACTION Provider, Abstract 10/03/2024 External Device Data STL ABSTRACTION Provider, Abstract 10/02/2024 Orders Only [facility] - [place] [address] [place] [phone] Mikael Gomes MD 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 Orders Only [facility] - [place] [address] [place] [address] Mikael Gomes MD Benign hypertension 09/18/2024 Orders Only [facility] - [place] [address] [place] [address] Mikael Gomes MD Carcinoma in [...] on file 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 [address] [place] [address] Mikael Gomes MD [address] [facility] [address] [place] [address] Benign hypertension Health Maintenance Due Date Last Done Comments [...] Abdominal Aortic Aneurysm (A AA) Screening 2014 RSV VACCINE (60+ or ) (1 - 1-dose 75+ series) 2024 INFLUENZA VACCINE (#1) 2024 DIABETES HBA1C Q 6 MONTHS 02/05/20252024, 06/29/2024, 03/21/2024, Additional history exists DIABETES ANNUAL RETINAL EXAM 09/11/2025, 06/16/2021, 05/26/2021, Additional history exists COLORECTAL SCREENING 10/22/2032 10/22/2022 Colorectal Cancer Screening 10/22/2032 Insurance MEDICARE PART A AND B [facility] SUPP Care Teams Environmental Conservation Professor Relationship Specialty Start Date End Date Pantera Bolivar MD [address] [place] [address] [address] [place] [address] PCP - General 05/02/15
--- OUTSIDE RECORDS SUMMARY | 2024-12-16 08:12 | XMS_ITS ---
Author Organization [facility] Address [address] [facility] [address] [address] Care Team Providers Care Tower Loader Operator Name Role Phone Larry Morel Primary Care Provider Noam Gar Unavailable [phone] ALLERGIES No Known Allergies RESULTS Component Value Reference Range Notes Hemoglobin A1c (In-House) Reviewed date:11/15/2024 03:26:55 PM Interpretation: Performing Lab: Notes/Report: Hemoglobin A1c 8.2% 4.0 - 6.0 % CBC With Differential/Platel et Reviewed date:11/15/2024 11:41:41 PM Interpretation: Performing Lab:[facility] [place], [address] [facility], Phone - [phone], Director - PhDRicchiuti Notes/Report: WBC 7.2 3.4-10.8 [...] Reviewed date:11/15/2024 03:28:23 PM Interpretation: Performing Lab:[facility] [place], [address] [facility], [place], Phone - [phone], Director - Ja Notes/Report: Glucose 198 70-99 [...] e a day 07/21/2023 Active TRUEplus Pen [place] 31G X 8 MM USE DIRECTED 5 [...] Three Times a Day Active Dexcom G7 Cell Tender - as directed Active Celecoxib 200 MG [...] Date Provider Diagnosis [facility] [address] [address] 11/14/2024 Noam Horn Type 2 diabetes mellitus [...] 11/14/[address] Noam alfonso dictates using LoopFuse Speaking software. Industrial Pharmacist variances may occur. Since our last visit [...] Orally Twice a day 07/21/2023 TRUEplus Pen [place] 31G X 8 MM USE DIRECTED 5 [...] Assessment Notes Other Dr. Noam mckeon using LoopFuse Speaking software. Industrial Pharmacist variances may occur. Since our last visit [...] Name:Noam Horn, 03/01/2025 10:15:00 AM, [address], [place], [address], Progress Notes * Examination Category Sub-Category Detail Notes Category Not es General Examination GENERAL APPEARANCE: in no ac dejon distress, well developed, obese HEAD: normocephalic, atrau [...]
--- OUTSIDE RECORDS SUMMARY | 2024-12-16 08:12 | XMS_ITS | Encounter Summary ---
Author Organization [facility] Address [address] [place] [address] Care Team Providers Care Diet Kitchen Cook Name Role Phone Pantera Bolivar MD Primary Care Provider [phone] Encounter Details Date Type Department Care Team (Late Contact Info) Description 12/11/2024 Orders Only [facility] Oncology and [facility] Eddie [address] [place] [address] Mikael Gomes MD [address] [place] [address] [address] [place] [address] Carcinoma in situ of bladder Social History Tobacco Use Types Packs/Day Years Used Date Smoking Tobacco: Former Cigarettes 2 10 Q uit: 02/16/1989 Alcohol Use Standard Drinks/Week Comments Yes 0 (1 standard drink = 0.6 oz pur e alcohol) occasionally Sex and Gender Information Value Date Recorded Sex Assigned at Not on file 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 Gender Identity Male 09/13/2024 10:33 AM CDT Sexual Orientation Straight 09/13/2024 10 :33 AM CDT documented as of this encounter Plan of Treatment Upcoming Encounters Date Type Department Care Team (Late Contact Info) Description 12/18/2024 Orders Only [facility] Oncology and [facility] Eddie [address] [place] [address] [place] [address] [place] [address] [address] [address] [place] [address] Benign hypertension documented as of this encounter Visit Diagnoses Diagnosis Carcinoma in situ of bladder Benign hypertension Essential hypertension, benign documented in this encounter Care Teams Diet Kitchen Cook Relationship Specialty Start Date End Date Pantera Bolivar MD [address] [place] [address] PCP - General 05/02/15 documented as of this encounter
--- OUTSIDE RECORDS SUMMARY | 2024-12-16 08:13 | XMS_ITS ---
Author Organization [facility] Address [address] [facility] [address] [address] Care Team Providers Care Burial Vault Deliverer And Installer Name Role Phone Larry Morel Primary Care Provider Noam Gar Unavailable [phone] REASON FOR VISIT Refill MEDICATIONS Medication SIG (Take, Route, Fr equency, Duration) Notes Start Date End Date Status Omeprazole 20 MG 1 capsule Orally Onc e a day for 90 days Active Encounters Encounter Location Date Provider Diagnosis [facility] [address] [facility] [address] [address] 11/27/2024 Noam Kory Type 2 diabetes mellitus [...] Provider Name:Noam Horn, 03/01/2025 10:15:00 AM, [address], [address],
--- OUTSIDE RECORDS SUMMARY | 2024-12-16 08:16 | XMS_ITS | Continuity of Care Document ---
Author Organization [facility] Address [address] [place] [address] Phone Care Team Providers Care Event Planning Intern Name Role Phone Moser OD, Oswaldo Unavailable Unavailable Procedures Procedure Date Eye Exam & Treatment Refraction Eye Exam & Treatment Refraction Eye Exam & Treatment Office/outpatient Visit, Est Office/outpatient Visit, Est Frames Deluxe Footfall123 - Medical No Charge Glasses Check Progressive Lens, Plastic Footfall123 - Medical Post-op Follow-up Visit Refraction Remove [...] Diagnoses Date Provider Providers Copied on Encounter [facility], [address], [place], [place], [address], [place] tel:[phone] [facility] No Information Sep-0 9-201 0 Moser OD Oswaldo. [address] , [address], [place], [place], [facility], . tel:[phone] Referring Provider: Pantera Bolivar MD, [address], [place], [address]. tel:[phone] [facility], [address] [place] [address] [address], [place], [place], [address], tel:[phone] [facility] No Information 2 1-200 9 Moser OD Oswaldo. [address] , [address], [place], [place], [facility], . tel:[phone] Referring Provider: Pantera Bolivar MD, [address], [place], [address]. tel:[phone] [facility], [address] [place] [address] [address], [place], [place], [address], [place] tel:[phone] [facility] No Information 4-200 8 Moser OD Oswaldo. [address] , [address], [place], [facility], . tel:[phone] Office/outpat ient Visit, [facility], [address] [place] [address] [address], [place], [place], [address], [place] tel:[phone] [facility] No Information 2 1-200 8 Moser OD Oswaldo. [address] , [address], [place], [facility], . tel:[phone] Office/outpat ient Visit, [facility], [address] [place] [address] [address], [place], [place], [address], [place] tel:[phone] [facility] No Information 4-200 8 Moser OD Oswaldo. [address] , [address], [place], [address], [place]. tel:[phone] [facility], [address], [place], [place], [address], [place] tel:[phone] [facility] No Information Nov-2 7-200 7 [facility] [employer] . [address] [facility], [address], [place], [place], [address], [place]. tel:[phone] Consulting Provider: Uzma Larsen, [address] [place] [address], [facility]. tel:[phone] [facility], [address], [place], [place], [address], [place] tel:[phone] [facility] No Information Nov-0 1-200 7 Moser OD Oswaldo. [address], [place], [facility], [place]. tel:[phone] [facility], [address], [place], [place], [address], [place] tel:[phone] [facility] No Information Oct-0 9-200 7 [facility] [employer] . [address] [facility], [address], [place], [place], [address], [place]. tel:[phone] Referring Provider: Sherwin Rubi, [address] [place], [place] [address]ate [address], [place], [facility]. tel:[phone] lting Provider: Uzma Larsen, [address] [place] [address], [address]. tel:[phone] [facility], [address], [place], [place], [address], [place] tel:[phone] [facility] No Information Oct-0 5-200 7 Lucio Courtney. On license of [facility] [address], [address], [place], [facility], [place]. tel:[phone] [facility], [address], [place], [place], [address], [place] tel:[phone] [facility] No Information Sep-2 1-200 7 Doisy Edward. [address] , [address], [place], [facility], . tel:[phone] [facility], [address] [place] [address] [address], [place], [place], [address], [place] tel:[phone] [facility] No Information Sep-2 1-200 7 Doisy Edward. [address] , [address], [place], [facility], [place]. tel:[phone] [facility], [address], [place], [place], [address], [place] tel:[phone] [facility] No Information Sep-1 9-200 7 Doisy Edward. [address] , [address], [place], [facility], [place]. tel:[phone] Referring Provider: Oswaldo Rubi, [facility] [address], [place], [facility]. tel:[phone] [facility], [address], [place], [place], [address], [place] tel:[phone] [facility] No Information Sep-1 2-200 7 Doisy Edward. [address] , [address], [place], [facility], [place]. tel:[phone] [facility], [address], [place], [place], [address], [place] tel:[phone] [facility] No Information Sep-1 1-200 7 Doisy Edward. [address] , [address], [place], [facility], [place]. tel:[phone] Referring Provider: Oswaldo Moser OD A, [address], [place], [address]. tel:[phone] Office/outpat ient Visit, [facility], [address], [place], [place], [address], [place] tel:[phone] [facility] No Information Sep-0 5-200 7 Lucio Courtney. [address] , [address], [place], [facility], [place]. tel:[phone] Referring Provider: Sherwin Rubi, [address], [place], [facility]. tel:[phone] [facility], [address] [place] [address] [address], [place], [place], [address], [place] tel:[phone] [facility] No Information Aug-2 3-200 7 Moser OD Oswaldo. [address] , [address], [place], [facility], [place]. tel:[phone] Referring Provider: Pantera Bolivar MD, [address], [place], [address]. tel:[phone] Office/outpat ient Visit, [facility], [address] [place] [address] [address], [place], [place], [address], [place] tel:[phone] [facility] No Information Apr-0 2-200 7 Wanjonathan Levy. [address] [facility], [place], [place], [address], [place]. tel:[phone] [facility], [address] [place] [address] [address], [place], [place], [address], [place] tel:[phone] [facility] No Information Jay-0 9-200 7 Moser OD Oswaldo. [address], [address], [place], [address], [place]. tel:[phone] Family History Family Member Type Diagnosis Age At Onset No Information Payers Payer name Insurance type Covered alliance party ID Authoriza tion(s) No Information Social [...]
--- NOTE | 2024-12-16 08:33 | ED.NEUROSD ---
HPI - Neuro Symptoms/Deficit General Chief Complaint: Suspected CVA Stated Complaint: THINKS IM HAVING A STROKE Time Seen by Provider: 12/16/24 08:10 History of Present Illness HPI Narrative: 74-year-old male presents emergency department evaluation for double vision that started last night associated with a headache. Patient does have a prior history of CVA we a stroke in his left eye does have a blind spot in his left eye. Patient reports he was sitting on his deck last night had onset of dizziness headache. Patient states symptoms lasted a few minutes at 7:30 p.m. and resolved. Patient went to bed approximately 9:00 p.m. and states when he woke up at 2:30 a.m. the symptoms had returned. Patient states double vision resolves when he closes his left eye. Patient is not able to move his left eye medially. Patient denies any other numbness weakness or speech changes. Patient is on Eliquis and aspirin. Related Data Home Medications ?Medication ?Instructions ?Recorded ?Confirmed ?Last Taken ?Type levothyroxine 175 mcg tablet 175 mcg PO QAM 05/28/19 10/17/24 07/28/24 09:18 History metformin 500 mg tablet,extended 1,000 mg PO BID 05/28/19 10/17/24 07/28/24 22:19 History release 24hr (osmotic) insulin lispro 100 unit/mL See Rx Instructions .Route .COMPLEX 05/29/19 10/17/24 07/28/24 History subcutaneous pen (Humalog KwikPen (U-100) Insulin) mecobalamin (vitamin B12) 1,000 1,000 mcg sublingual QAM 09/16/20 10/17/24 07/28/24 09:19 History mcg disintegrating tablet,sublingual zloofblh-kxnn-fhsuh acid 400 1 tablet PO DAILY 02/13/22 10/17/24 07/28/24 09:19 History mcg-lycopene 600 mcg-ginkgo 120 mg tablet omeprazole 20 mg capsule,delayed 20 mg PO DAILY 06/08/22 10/17/24 07/28/24 09:19 History release semaglutide 1 mg/dose (4 mg/3 mL) 1.5 mg subcut WEEKLY 04/12/23 10/17/24 07/26/24 History subcutaneous pen injector insulin glargine 100 unit/mL (3 45 unit subcut .COMPLEX 03/07/24 10/17/24 07/28/24 09:18 History mL) subcutaneous pen (Lantus Solostar U-100 Insulin) Allergies Allergy/AdvReac Type Severity Reaction Status Date / Time sulfamethoxazole (From Allergy Mild Rash Verified 12/16/24 08:50 Bactrim) trimethoprim (From Bactrim) Allergy Mild Rash Verified 12/16/24 08:50 Review of Systems Review of Systems: All systems reviewed & are unremarkable except as noted in HPI and below [facility] Past Medical History Medical History Cerumen impaction Dermatitis Cellulitis of arm, left Thoracic aortic aneurysm (TAA) Pulmonary embolism (07/09/23) Constipation Colon cancer screening Dysphagia History of esophageal dilatation Bladder cancer Hematuria Insulin dependent diabetes mellitus History of CVA (cerebrovascular accident) History of DVT (deep vein thrombosis) Long-term anticoagulation Pneumonia due to 2019 novel coronavirus Nephrolithiasis Obstructive sleep apnea Fever Essential hypertension Gastroesophageal reflux disease without esophagitis History of DVT in adulthood Hyperlipidemia Hypothyroidism Left carotid artery occlusion Type 2 diabetes mellitus without complication, without long-term current use of insulin Surgical History Surgical History Hx of laminectomy History of biopsy of bladder H/O lithotripsy History of knee replacement Partial right knee replacement History of cataract extraction Status post hip replacement Left side Status post placement of ureteral stent Right side Family History Family History Father Cancer Mother Cancer Grandparent Diabetes mellitus Social History Social History Social History: The patient lives with his sleeve in girlfriend. The patient quit smoking 40+ years ago. The patient has 2 children. His son is the durable power criminal defense attorney for healthcare. The patient is retired from [employer]. 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 Patient occasionally has a beer on the weekend. Maybe 3 or 4 beers a week. Patient denies any marijuana or illicit drugs. Smoking packs per day: 1.5 Smoking cigarettes per day: 30.0 Years smoked: 10 Smoking pack-years: 15.00 Smoking status: Former smoker Second hand tobacco smoke exposure: No Alcohol intake: current Drinks per week: 3 Alcohol use details: BEERS Substance use: never Substance use type: does not use Do You Feel Safe in your Home?: Yes Lack of Transportation: No Lack of Food: Never True Current Housing: I Have Housing Concerned About Future Housing: No Difficulty Paying Gas/Electric Bills: No Difficulty Paying for Meds: No Currently Unemployed: No Education: High School Diploma/GED Difficulty w/ Childcare or Family Care: No Living arrangements: alone Occupation/Education: retired Additional occupation/education comments: [employer]. Gender identity (if verbalized by the patient): Male Sexual Orientation (if Verbalized by the Patient): Straight or Heterosexual Spiritual care concerns: No Exam Narrative: APPEARANCE: Well appearing, no pain, no distress, well-nourished. HEAD: normocephalic, atraumatic. EYES: Left eye does not track medially NOSE: Normal no drainage EARS:TMS clear with good light reflex. THROAT: Pharynx clear, no exudate. NECK: Supple. No adenopathy, no masses. RESPIRATORY: Airway patent, respirations nonlabored. Clear to auscultation bilaterally, no rales, rhonchi, wheezing. CARDIOVASCULAR: Regular rate and rhythm without murmurs rubs or gallops. ABDOMINAL: Soft, nontender, nondistended, normal bowel sounds MUSCULOSKELETAL: Moves all extremities. Strength/ROM intact, No edema, No calf tenderness. NEURO: Alert. Cranial nerves II through XII intact. Good gait. Good coordination SKIN: Warm, dry. Normal Color Course Vital Signs Vital signs: Vital Signs Temperature 97.8 F 12/16/24 08:23 Pulse Rate 72 12/16/24 08:23 Respiratory Rate 18 12/16/24 08:23 Blood Pressure 153/77 H 12/16/24 08:23 Pulse Oximetry 100 12/16/24 08:23 Oxygen Delivery Room Air 12/16/24 08:23 Temperature 97.6 F 12/16/24 11:10 Pulse Rate 73 12/16/24 11:10 Respiratory Rate 15 12/16/24 11:10 Blood Pressure 149/74 H 12/16/24 11:10 Pulse Oximetry 100 12/16/24 11:10 Oxygen Delivery Room Air 12/16/24 08:23 MDM - Neuro Symptoms/Deficit MDM Narrative Medical decision making narrative: 74-year-old male with prior history of CVA presents emergency department for evaluation for onset of double vision with inability to move his left eye medially. Patient's last known normal was approximately 9:00 p.m. last night. Patient did have symptoms at 7:30 a.m. last night that resolved but then he went to bed at 9:00 p.m. and went woke up at 2:00 a.m. symptoms had returned. Patient denies any other focal numbness or weakness. Patient has been taking his Eliquis and aspirin. Patient is currently afebrile with no leukocytosis and does have a hemoglobin of 10.9. No acute abnormalities on the patient's CMP UA was concerning for infection and patient was started on antibiotics in the emergency department. CTA does show chronic changes but no acute intracranial abnormality. Case was discussed with Neurology Dr. Koch was consulted. Case was discussed with the hospitalist patient will be admitted to [facility]. Patient family updated the results of the workup plan for admission anticipated MRI. States he does have claustrophobia states he will need anxiolysis for the MRI. Differential Diagnosis Differential diagnosis: Likely cerebrovascular accident, multiple sclerosis and transient cerebral ischemia Lab Data Attestation: I reviewed the patient's lab results. 12/16/24 08:39 12/16/24 08:39 Labs: Lab Results 12/16/24 12/16/24 Range/Units 08:32 08:39 WBC 4.4 L (4.5-10.0) K/mm3 RBC 3.89 L (4.6-6.20) M/mm3 Hgb 10.9 L (14.0-18.0) g/dL Hct 36.2 L (42.0-52.0) % MCV 93.1 (80-100) fl MCH 28.0 (26-34) pg MCHC 30.1 L (32-36) g/dl RDW 13.9 (11.5-14.5) % Plt Count 296 (150-375) k/mm3 MPV 10.2 (7.4-10.4) fl Immature Gran % (Auto) 0.2 (0-0.5) % Neut % (Auto) 40.3 L (45.5-73.1) % Lymph % (Auto) 23.8 (18.3-44.2) % Freeborn % (Auto) 13.3 H (2.6-8.5) % Eos % (Auto) 20.8 H (0-4.4) % Baso % (Auto) 1.6 H (0.2-1.2) % Lymph # (Auto) 1.05 (0.9-3.2) K/mm3 Freeborn # (Auto) 0.6 (0.1-0.6) K/mm3 Eos # (Auto) 0.9 H (0-0.3) K/mm3 Baso # (Auto) 0.1 (0.0-0.1) K/mm3 Abs Immat Gran (auto) 0.01 (0.00-0.031) K/mm3 Absolute Neuts (auto) 1.8 (1.3-6.7) K/mm3 Absolute Nucleated RBC 0.000 (0.0-0.012) K/mm3 Nucleated RBC % 0.0 (0.0-0.2) % PT 15.6 H (11.1-14.7) Seconds INR 1.2 APTT 29.6 (22.3-36.8) Seconds Sodium 139 (137-145) mmol/L Potassium 4.3 (3.4-5.0) mmol/L Chloride 108 H (98-107) mmol/L Carbon Dioxide 26 (22-30) mmol/L Anion Gap 5 (4-12) mmol/L BUN 10 D (9-20) mg/dL Creatinine 1.05 (0.7-1.3) mg/dL Estim Creat Clear Calc 61 ml/min Estimated GFR > 60 (59 - ) Glucose 134 H (65-110) mg/dL POC Capillary Glucose 136 H (65-105) mg/dl Calcium 9.6 (8.4-10.2) mg/dL Total Bilirubin 0.4 (0.2-1.3) mg/dL AST 39 (17-59) U/L ALT 27 (6-50) U/L Alkaline Phosphatase 58 (38-126) U/L Troponin I < 0.012 (0.000-0.034) ng/mL Total Protein 6.2 L (6.3-8.2) g/dL Albumin 3.8 (3.5-5.1) g/dL Imaging Data Radiologist's impression: Impressions Head/Neck CTA 12/16/24 09:30 IMPRESSION: 1. 40% stenosis of the right carotid bulb relative to normal distal artery lumen diameter (NASCET criteria). 2. Persistent complete occlusion of the extracranial left internal carotid artery with reconstitution at the carotid siphon, unclear whether via ophthalmic artery or retrograde flow supplied from the right internal carotid artery via a patent anterior communicating artery. 3. Small old infarcts in bilateral basal ganglia and right parietal rolon radiata. No acute intracranial process. 4. Age-related changes including mild diffuse volume loss and moderate scattered white matter hypoattenuation consistent with chronic small vessel ischemic disease. ECG Data EKG #1: EKG Interpretation: normal rate, sinus rhythm, no ectopy, no ST changes, normal QRS, NL axis and no acute changes Discharge Plan Discharge Clinical Impression: Acute CVA (cerebrovascular accident), Double vision, Acute UTI Patient Disposition: Still a Patient Condition: Serious Quality Stroke Scale Stroke Scale 1: Stroke scale date:: 12/16/24 Stroke scale time:: 08:35 1a Level of consciousness: alert-0 1b Level of consciousness questions: answers both correctly-0 1c Level of consciousness commands: obeys both correctly-0 2 Best gaze: partial gaze palsy-1 3 Visual: no visual loss-0 4 Facial palsy: normal-0 5a Motor: left arm: no drift-0 5b Motor: right arm: no drift-0 6a Motor: left leg: no drift-0 6b Motor: right leg: no drift-0 7 Limb ataxia: absent-0 8 Sensory: normal-0 9 Best language: no aphasia-0 10 Dysarthria: normal-0 11 Extinction and inattention: no abnormality-0 Level:: 1
[2024-12-16 08:52] LABS: Hematocrit 36.2 % (42.0-52.0); Hemoglobin 10.9 g/dL (14.0-18.0); Immature Granulocyte Percent A 0.2 % (0-0.5); Lymphocytes Absolute Auto 1.05 K/mm3 (0.9-3.2); Mean Corpuscular HGB Conc 30.1 g/dl (32-36); Mean Corpuscular Hemoglobin 28.0 pg (26-34); Mean Corpuscular Volume 93.1 fl (80-100); Nucleated Red Blood Cells Absolute Auto 0.000 K/mm3 (0.0-0.012); Nucleated Red Blood Cells Perc 0.0 % (0.0-0.2); Platelet Count Result 296 k/mm3 (150-375); Red Blood Count 3.89 M/mm3 (4.6-6.20); White Blood Count 4.4 K/mm3 (4.5-10.0)
[2024-12-16 08:56] LABS: INR 1.2; Partial Thromboplastin Time 29.6 Seconds (22.3-36.8); Prothrombin Time 15.6 Seconds (11.1-14.7)
[2024-12-16 09:04] LABS: Alanine Aminotransferase 27 U/L (6-50); Albumin Level 3.8 g/dL (3.5-5.1); Alkaline Phosphatase 58 U/L (38-126); Anion Gap 5 mmol/L (4-12); Aspartate Amino Transferase 39 U/L (17-59); Bilirubin,Total 0.4 mg/dL (0.2-1.3); Blood Urea Nitrogen 10 mg/dL (9-20); Calcium 9.6 mg/dL (8.4-10.2); Carbon Dioxide 26 mmol/L (22-30); Chloride 108 mmol/L (98-107); Estimated CRCL calculation 61 ml/min; Estimated Glomerular Filt Rate > 60; Glucose 134 mg/dL (65-110); Potassium 4.3 mmol/L (3.4-5.0); Sodium 139 mmol/L (137-145); Total Protein 6.2 g/dL (6.3-8.2)
[2024-12-16 09:15] LABS: Troponin I < 0.012 ng/mL (0.000-0.034)
--- NOTE | 2024-12-16 10:16 | P.HP_ITS ---
H&P: HPI History of Present Illness Date/Time: 12/16/24 10:16 Chief Complaint: Double vision Narrative: 74 years gentleman with history of CVA, hypothyroidism, diabetes, hyperlipidemia, GERD, present ED with a chief complaint of double vision. Patient noticed double vision yesterday evening. Patient started have headache, and dizziness yesterday evening, later on patient developed double vision. Patient denies fever, chills, photophobia, abdomen pain, nausea vomiting diarrhea dysuria Upon arrival to ED, patient is afebrile, blood pressure stable, uncontrolled blood pressure of 153/77 Hemoglobin 10.9, close to baseline, CMP unremarkable, troponin negative CT head shows no acute intracranial issues, small old infarct in bilateral basal ganglia and right parietal rolon, 40% stenosis of the right carotid bulb, persistent complete occlusion of the extracranial left internal carotid artery with reconstitution of the carotid ER physician consulted neurologist, we admit patient for further evaluation and management PMFSH Past Medical History Medical History Cerumen impaction Dermatitis Cellulitis of arm, left Thoracic aortic aneurysm (TAA) Pulmonary embolism (07/09/23) Constipation Colon cancer screening Dysphagia History of esophageal dilatation Bladder cancer Hematuria Insulin dependent diabetes mellitus History of CVA (cerebrovascular accident) History of DVT (deep vein thrombosis) Long-term anticoagulation Pneumonia due to 2019 novel coronavirus Nephrolithiasis Obstructive sleep apnea Fever Essential hypertension Gastroesophageal reflux disease without esophagitis History of DVT in adulthood Hyperlipidemia Hypothyroidism Left carotid artery occlusion Type 2 diabetes mellitus without complication, without long-term current use of insulin Surgical History Surgical History Hx of laminectomy History of biopsy of bladder H/O lithotripsy History of knee replacement Partial right knee replacement History of cataract extraction Status post hip replacement Left side Status post placement of ureteral stent Right side Family History Family History Father Cancer Mother Cancer Grandparent Diabetes mellitus Social History Social History Social History: The patient lives with his sleeve in girlfriend. The patient quit smoking 40+ years ago. The patient has 2 children. His son is the durable power civil attorney for healthcare. The patient is retired from [employer]. 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 Patient occasionally has a beer on the weekend. Maybe 3 or 4 beers a week. Patient denies any marijuana or illicit drugs. Smoking packs per day: 1.5 Smoking cigarettes per day: 30.0 Years smoked: 10 Smoking pack-years: 15.00 Smoking status: Former smoker Second hand tobacco smoke exposure: No Alcohol intake: current Drinks per week: 4 Alcohol use details: BEERS Substance use: never Substance use type: does not use Do You Feel Safe in your Home?: Yes Lack of Transportation: No Lack of Food: Never True Current Housing: I Have Housing Concerned About Future Housing: No Difficulty Paying Gas/Electric Bills: No Difficulty Paying for Meds: No Currently Unemployed: No Education: Don't Know Difficulty w/ Childcare or Family Care: No Living arrangements: alone Occupation/Education: retired Additional occupation/education comments: [employer] / [employer]. Gender identity (if verbalized by the patient): Male Sexual Orientation (if Verbalized by the Patient): Straight or Heterosexual Spiritual care concerns: No Meds Home Medications and Allergies Home Medications ?Medication ?Instructions ?Recorded ?Confirmed ?Type levothyroxine 175 mcg tablet 175 mcg PO QAM 05/28/19 12/16/24 History metformin 500 mg tablet,extended 1,000 mg PO BID 05/28/19 12/16/24 History release 24hr (osmotic) insulin lispro 100 unit/mL See Rx Instructions .Route .COMPLEX 05/29/19 12/16/24 History subcutaneous pen (Humalog KwikPen (U-100) Insulin) mecobalamin (vitamin B12) 1,000 1,000 mcg PO QAM 09/16/20 12/16/24 History mcg disintegrating tablet,sublingual gkgedvyk-agnv-ssoto acid 400 1 tablet PO DAILY 02/13/22 12/16/24 History mcg-lycopene 600 mcg-ginkgo 120 mg tablet omeprazole 20 mg capsule,delayed 20 mg PO DAILY 06/08/22 12/16/24 History release semaglutide 1 mg/dose (4 mg/3 mL) 1.5 mg subcut WEEKLY 04/12/23 12/16/24 History subcutaneous pen injector insulin glargine 100 unit/mL (3 45 unit subcut .COMPLEX 03/07/24 12/16/24 History mL) subcutaneous pen (Lantus Solostar U-100 Insulin) atenolol 50 mg tablet 50 mg PO QAM #90 tabs 06/05/24 12/16/24 Rx celecoxib 200 mg capsule 200 mg PO BID #200 caps 07/17/24 12/16/24 Rx rosuvastatin 10 mg tablet 10 mg PO HS #90 tabs 07/20/24 12/16/24 Rx gabapentin 300 mg capsule 300 mg PO BID #60 caps 07/21/24 12/16/24 Rx aspirin 81 mg tablet,delayed 81 mg PO QAM #30 tabs 08/29/24 12/16/24 Rx release fenofibrate micronized 200 mg See Rx Instructions .Route 10/15/24 12/16/24 Rx capsule .COMPLEX #90 caps apixaban 5 mg tablet (Eliquis) 5 mg PO BID #180 tabs 12/07/24 12/16/24 Rx tramadol 50 mg tablet 50 mg PO Q6H PRN pain #120 tabs 12/14/24 12/16/24 Rx Allergies Allergy/AdvReac Type Severity Reaction Status Date / Time sulfamethoxazole (From Allergy Mild Rash Verified 12/16/24 08:50 Bactrim) trimethoprim (From Bactrim) Allergy Mild Rash Verified 12/16/24 13:00 Vital Signs Vital Signs - 24 hr 12/16/24 08:23 12/16/24 08:43 12/16/24 08:43 Temperature 97.8 F Pulse Rate 72 77 74 Respiratory Rate 18 19 19 Blood Pressure 153/77 H 153/77 H 153/77 H Pulse Oximetry 100 100 100 Oxygen Delivery Room Air 12/16/24 08:43 12/16/24 09:32 Temperature Pulse Rate 75 73 Respiratory Rate 15 Blood Pressure 150/82 H Pulse Oximetry 100 Oxygen Delivery Exam Narrative: GENERAL: Pleasant, in no acute distress. Well-nourished. - EYES: Patient cannot move his eye to nose to follow my finger movement. Anicteric. - HENT: Moist mucous membranes. - LUNGS: Clear to auscultation bilateral ly, no wheezing, rhonchi, or rales. - CARDIOVASCULAR: Regular rate and rhyth m. No murmur. No JVD. - ABDOMEN: Soft, non-tender and non-dist ended. No palpable masses. - EXTREMITIES: No edema. Peripheral puls es 2+. Non-tender. - NEUROLOGIC: No focal neurological defi cits. CN II-XII grossly intact. - PSYCHIATRIC: Awake, Alert and oriented x 3. Appropriate mood and affect. - SKIN: No rashes or lesions. Warm. - LYMPH: No cervical lymphadenopathy. H&P: Results Labs Labs: Short CBC 12/16/24 Range/Units 08:39 WBC 4.4 L (4.5-10.0) K/mm3 Hgb 10.9 L (14.0-18.0) g/dL Hct 36.2 L (42.0-52.0) % Plt Count 296 (150-375) k/mm3 BMP 12/16/24 08:39 Sodium 139 Potassium 4.3 Chloride 108 H Carbon Dioxide 26 BUN 10 D Creatinine 1.05 Glucose 134 H Calcium 9.6 Cardiac Enzymes 12/16/24 Range/Units 08:39 Troponin I < 0.012 (0.000-0.034) ng/mL Liver Function 12/16/24 Range/Units 08:39 Total Bilirubin 0.4 (0.2-1.3) mg/dL AST 39 (17-59) U/L ALT 27 (6-50) U/L Alkaline Phosphatase 58 (38-126) U/L Albumin 3.8 (3.5-5.1) g/dL Assessment and Plan Assessment and plan (1) Acute CVA (cerebrovascular accident): Code(s): I63.9 - Cerebral infarction, unspecified Status: Acute (2) Chronic anemia: Code(s): D64.9 - Anemia, unspecified Status: Acute (3) Uncontrolled hypertension: Code(s): I10 - Essential (primary) hypertension Status: Acute Plan Acute CVA Patient started have headache, and dizziness yesterday evening, later on patient developed double vision CT head shows no acute intracranial issues, small old infarct in bilateral basal ganglia and right parietal rolon, 40% stenosis of the right carotid bulb, persistent complete occlusion of the extracranial left internal carotid artery with reconstitution of the carotid Patient has history of ischemic stroke ER physician consulted the neurologist Continue aspirin 81 mg daily p.o., Crestor 10 mg daily p.o. Telemetry monitoring Follow-up echocardiogram with bubble study Neuro check Four precaution Pending brain MRI History of DVT and PE Continue Eliquis 5 [address] b.i.d. p.o. as CT does not show acute intracranial issues Uncontrolled hypertension uncontrolled blood pressure of 153/77 Hold hypertension medication during hypertension permission Insulin dependent diabetes Continue Lantus 40 units b.i.d. Start insulin sliding scale a.c. q.h.s. Acquired hypothyroidism Continue Synthroid as 175 mcg daily p.o. Hospitalist MIPS Advance Care Plan I have confirmed that the patient's Advanced Care Plan is present, code status is documented, or surrogate decision maker is listed in patient medical record.: Yes Medication Reconciliation I have utilized all available resources to obtain, update and review the patients current medications (includes all prescriptions, OTC, herbals, cannabis, and nutritional supplements).: Yes
--- NOTE | 2024-12-16 10:39 | ECHO_ITS ---
Patient Info Name: Roscoe Pérez Age: 74 years : 1950 Gender: Male Ht: 73 in Wt: 205 lbs BSA: 2.20 m2 HR: 70 bpm BP: 149 / 74 mmHg Technical Quality: Good Exam Date: 12/16/2024 12:06 PM Patient Status: I Admit Date: 12/16/2024 Exam Type: CA echo doppler w bubble study Complete two-dimensional, color flow and Doppler transthoracic echocardiogram is performed with agitated saline. Staff Referring Physician: Champ Byrne Door Person: Jamaica Topete Attending Provider: Roselia Villasenor Contrast/Agitated Saline Contrast/Ag. Saline: Agitated Saline Amount: 20.00 ml Administered By: Jamaica Topete Summary 1. Left ventricular chamber dimension is normal. 2. Left ventricular systolic function is normal, estimated at 60-65. 3. There is mild concentric increased left ventricular wall thickness. 4. The left ventricular diastolic function is grade I diastolic dysfunction. 5. E/e' 9 is minimally elevated. 6. Left atrial chamber dimension is mildly enlarged. 7. There is mild aortic valve sclerosis. 8. There is trace aortic valve regurgitation. 9. There is mild mitral valve regurgitation. Left Ventricle Left ventricular chamber dimension is normal. Left ventricular systolic function is normal, estimated at 60-65. There is mild concentric increased left ventricular wall thickness. The left ventricular diastolic function is grade I diastolic dysfunction. E/e' 9 is minimally elevated. Right Ventricle Right ventricular chamber dimension is normal. Right ventricular systolic function is normal. Left Atria Left atrial chamber dimension is mildly enlarged. Right Atria Right atrial chamber dimension is normal. Atrial Septum Intact interatrial septum visualized by 2D and agitated saline imaging. Agitated saline injection with and without valsalva maneuver opacified right side cardiac chambers without shunt to left side cardiac chambers. Aortic Valve The aortic valve is trileaflet. There is mild aortic valve sclerosis. There is no aortic valve stenosis. There is trace aortic valve regurgitation. Pulmonic Valve There is no pulmonic regurgitation. Mitral Valve There is no mitral valve stenosis. There is mild mitral valve regurgitation. Tricuspid Valve There is no tricuspid valve regurgitation. Pericardium/Pleural There is no pericardial effusion. Inferior Vena Cava Normal inferior vena cava with >50% collapse upon inspiration consistent with normal right atrial pressure, 5 mmHg. Aorta The aortic root size at the sinus of Valsalva is normal. Left Ventricular Outflow Tract Name Value Normal LVOT 2D LVOT Diameter 2.0 cm LVOT Doppler LVOT Peak Velocity 86 cm/s LVOT Peak Gradient 3 mmHg LVOT Mean Gradient 2 mmHg LVOT VTI 25 cm LVOT Stroke Volume 81 ml LVOT CO 5.7 l/min LVOT CI 2.6 l/min/m2 Pulmonic Valve Name Value Normal RVOT Doppler RVOT Peak Velocity 74 cm/s RVOT Peak Gradient 2 mmHg PV Doppler PV Peak Velocity 94 cm/s PV Peak Gradient 4 mmHg Mitral Valve Name Value Normal MV Doppler MV Peak Gradient 5 mmHg MV Mean Gradient 3 mmHg MV Area (Cont Eq VTI) 2.3 cm2 MV Diastolic Function MV E Peak Velocity 75 cm/s MV A Peak Velocity 92 cm/s MV E/A 0.8 MV Decel Time (PW) 244 ms MV Annular TDI MV E/e' (Septal) 10.2 MV E/e' (Lateral) 9.6 MV E/e' (Average) 9.9 Tricuspid Valve Name Value Normal Estimated PAP/RSVP RA Pressure 5 mmHg <=5 Aortic Valve Name Value Normal AV Doppler AV Peak Velocity 148 cm/s AV Peak Gradient 9 mmHg AV Area (Cont Eq Vidal) 1.9 cm2 AV DI (Vidal) 0.59 AV Regurgitation 2D LVOT Area 3.2 cm2 Ventricles Name Value Normal LV Dimensions 2D/MM IVS Diastolic Thickness (2D) 1.2 cm 0.6-1.0 LVID Diastole (2D) 5.3 cm 4.2-5.8 LVIW Diastolic Thickness (2D) 1.1 cm 0.6-1.0 LVID Systole (2D) 3.4 cm 2.5-4.0 LVOT Diameter 2.0 cm LV Mass (2D Cubed) 231.67 g 88.00-224.00 LV Mass Index (2D Cubed) 105 g/m2 49-115 Relative Wall Thickness (2D) 0.41 <=0.42 LV Fractional Shortening/Ejection Fraction 2D/MM LV Fractional Shortening (2D) 35 % 25-43 LV EF (2D Teichholz) 64 % LV Diastolic Volume (4C MOD) 117 ml LV EF (4C MOD) 54 % LV Diastolic Volume (2C MOD) 120 ml LV EF (2C MOD) 59 % LV Diastolic Volume (BP MOD) 119 ml 62-150 LV Diastolic Volume Index (BP MOD) 54 ml/m2 34-74 LV Systolic Volume (BP MOD) 55 ml 21-61 LV Systolic Volume Index (BP MOD) 25 ml/m2 11-31 LV EF (BP MOD) 54 % 52-72 LV Diastolic Length (4C) 7.9 cm LV Systolic Length (4C) 6.4 cm LV Stroke Volume (4C MOD) 64 ml Atria Name Value Normal LA Dimensions LA Volume (4C A-L) 39 ml LA Volume (BP A-L) 37 ml RA Dimensions RA Systolic Major Calpine Length (4C) 3.9 cm 2.1-2.7 RA Area (4C) 9.7 cm2 <=18.0 Report Signatures
[2024-12-16 10:46] LABS: Non Pathogenic Casts 0-2
[2024-12-16 10:47] LABS: Add Urine Microscopic? YES; Appearance Urine Clear (Clear); Glucose Urine UA Negative (Negative); Leukocyte Esterase Ur 1+ LEU/UL (Negative); Nitrate Urine Negative (Negative); Specific Grav Ur > 1.045 (1.001-1.035)
[2024-12-16] MEDS: cefTRIAXone 1 GM in SODIUM CHLORIDE 0.9% IV 50 ML 100 ML IVPB (12:12)
--- NOTE | 2024-12-16 12:38 | ADMGEN ---
This patient, Roscoe Pérez , was admitted to 3 Med Surg Room 327-01. Patient/family oriented to hospital policies and general routines including ID bracelet, bed and alarms, visiting hours, pain management, procedures, bathroom and other care routines, personal items, smoking policy, room service/diet, and visiting hours. Information on how to activate the Rapid Response Team has been discussed. Patient/Family are encouraged to report perceived risks to care and to ask questions if they do not understand what they are told or what they should do. Report from [facility] in ER.
[2024-12-16] MEDS: LORazepam INJ (*CRX) 2 MG/ML VIAL 0.5 MG IV PUSH (13:53)
[2024-12-16] MEDS: CYANOCOBALAMIN 1,000 MCG TABLET 1000 MCG PO (15:02)
[2024-12-16] MEDS: ASPIRIN 81 MG ENTERIC TABLET PO (15:02)
[2024-12-16] MEDS: PANTOPRAZOLE 40 MG TABLET PO (15:03)
[2024-12-16] MEDS: FENOFIBRATE NANOCRYSTALLIZED 145 MG TABLET PO (15:03)
--- NOTE | 2024-12-16 15:15 | P.CONNEU_ITS ---
Assessment and Plan Assessment and plan (1) Left-sided fourth cranial nerve palsy: Code(s): H49.12 - Fourth [trochlear] nerve palsy, left eye Status: Acute Assessment and Plan: Differential diagnosis will be with ocular myasthenia. I do not see any apparent restriction in the move range of movement of the eyes in any direction however he sees double and a the images were slanted when looking externally to the left side and down. This will require some follow-up. I ordered further blood work for Myasthenia gravis as well as lipid profile and serum B12 folate. I have explained the findings the patient and his significant other was also present the time of the evaluation. I have given them my phone number to get in touch with me for follow-up. (2) Brain TIA: Code(s): G45.9 - Transient cerebral ischemic attack, unspecified Status: Acute Assessment and Plan: According to the history is had a transient ischemic attack where he was having some weakness in the angle of the mouth and some slurring of vision and then to decreased vision the left eye in July and he has had 3 or so spells. An MRI of the brain performed at the time had shown some white matter changes and old basal ganglia infarct. (3) Left carotid artery occlusion: Code(s): I65.22 - Occlusion and stenosis of left carotid artery Status: Acute (4) Insulin dependent diabetes mellitus: Status: Chronic (5) Status post lumbar laminectomy: Code(s): Z98.890 - Other specified postprocedural states Status: Acute (6) Pulmonary embolism: Onset Date: 07/09/23 Qualifiers: Pulmonary embolism type: multiple subsegmental (without acute cor pulmonale) Qualified Code(s): I26.94 - Multiple subsegmental pulmonary emboli without acute cor pulmonale Code(s): I26.99 - Other pulmonary embolism without acute cor pulmonale Status: Acute (7) Acute deep vein thrombosis (DVT) of right lower extremity: Onset Date: ~07/09/23 Qualifiers: Affected thrombotic vein of extremity: femoral Qualified Code(s): I 82.411 - Acute embolism and thrombosis of right femoral vein Code(s): I82.401 - Acute embolism and thrombosis of unspecified deep veins of right lower extremity Status: Acute (8) Essential hypertension: Code(s): I10 - Essential (primary) hypertension Status: Acute (9) Bladder cancer: Qualifiers: Bladder location: unspecified site Qualified Code(s): C67.9 - Malignant neoplasm of bladder, unspecified Code(s): C67.9 - Malignant neoplasm of bladder, unspecified Status: Acute Assessment and Plan: The patient is following up with the neurologist regarding this. Plan The patient underwent MRI of the brain the results of which are awaited. CT angiogram head and neck shows complete occlusion of the left internal carotid artery with reconstitution at the carotid siphon. The source of reconstitution was unclear. There was a 40% narrowing of the right carotid bulb. I did not find any other significant focal deficit however he did have some headache and dizziness and hence the possibility of brainstem stroke would still be a possibility although I did not find any significant other focal deficit and hence it could be isolated 4th nerve palsy. Passing the IV help. He is already on anticoagulation on account of pulmonary embolism and deep vein thrombosis and hence he can add aspirin 81 mg a day increase the dose of Crestor to 20 mg a day. He will require some follow-up in the office and after 6 months symptoms persist provided there is no evidence for ocular myasthenia he we need to be evaluated by a neuro credit card specialist if necessary. Consult date: 12/16/24 HPI: Roscoe Pérez is a 74 year old right-handed white male with history of diabetes mellitus presented to the hospital with onset of diplopia and dizziness and headache. Symptoms started last night. This morning they are persistent and has he became concerned and came to the hospital. He also has history of carcinoma of bladder and previous transient ischemic attacks on August 10, 2024 and he came to the emergency room. MRI of the brain at that time had shown some white matter changes and some old infarcts in the basal ganglia region. He feels that he continues to see double when looking towards the end of the field of vision on the left side in the lower part. He is also known to have a complete occlusion of the left internal carotid artery. History of obstructive sleep apnea syndrome and diabetes mellitus.. He denies any difficulty swallowing. No weakness in upper lower limbs. Is able to get up and walk but he feels somewhat unsteady. Review of Systems 2 Review of Systems: All systems reviewed & are unremarkable except as noted in HPI and below [facility] Past Medical History Medical History (Updated 12/16/24 @ 15:20 by Neena Koch MD) Left-sided fourth cranial nerve palsy Cerumen impaction Dermatitis Cellulitis of arm, left Thoracic aortic aneurysm (TAA) Pulmonary embolism (07/09/23) Constipation Colon cancer screening Dysphagia History of esophageal dilatation Bladder cancer Hematuria Insulin dependent diabetes mellitus History of CVA (cerebrovascular accident) History of DVT (deep vein thrombosis) Long-term anticoagulation Pneumonia due to 2019 novel coronavirus Nephrolithiasis Obstructive sleep apnea Fever Essential hypertension Gastroesophageal reflux disease without esophagitis History of DVT in adulthood Hyperlipidemia Hypothyroidism Left carotid artery occlusion Type 2 diabetes mellitus without complication, without long-term current use of insulin Surgical History Surgical History Hx of laminectomy History of biopsy of bladder H/O lithotripsy History of knee replacement Partial right knee replacement History of cataract extraction Status post hip replacement Left side Status post placement of ureteral stent Right side Family History Family History Father Cancer Mother Cancer Grandparent Diabetes mellitus Social History Social History Social History: The patient lives with his sleeve in girlfriend. The patient quit smoking 40+ years ago. The patient has 2 children. His son is the durable power document review attorney for healthcare. The patient is retired from [employer]. 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 Patient occasionally has a beer on the weekend. Maybe 3 or 4 beers a week. Patient denies any marijuana or illicit drugs. Smoking packs per day: 1.5 Smoking cigarettes per day: 30.0 Years smoked: 10 Smoking pack-years: 15.00 Smoking status: Former smoker Second hand tobacco smoke exposure: No Alcohol intake: current Drinks per week: 4 Alcohol use details: BEERS Substance use: never Substance use type: does not use Do You Feel Safe in your Home?: Yes Lack of Transportation: No Lack of Food: Never True Current Housing: I Have Housing Concerned About Future Housing: No Difficulty Paying Gas/Electric Bills: No Difficulty Paying for Meds: No Currently Unemployed: No Education: Don't Know Difficulty w/ Childcare or Family Care: No Living arrangements: alone Occupation/Education: retired Additional occupation/education comments: [employer]. Gender identity (if verbalized by the patient): Male Sexual Orientation (if Verbalized by the Patient): Straight or Heterosexual Spiritual care concerns: No Meds Home Medications and Allergies Home Medications ?Medication ?Instructions ?Recorded ?Confirmed ?Type levothyroxine 175 mcg tablet 175 mcg PO QAM 05/28/19 12/16/24 History metformin 500 mg tablet,extended 1,000 mg PO BID 05/28/19 12/16/24 History release 24hr (osmotic) insulin lispro 100 unit/mL See Rx Instructions .Route .COMPLEX 05/29/19 12/16/24 History subcutaneous pen (Humalog KwikPen (U-100) Insulin) mecobalamin (vitamin B12) 1,000 1,000 mcg PO QAM 09/16/20 12/16/24 History mcg disintegrating tablet,sublingual [id number]-oesw-xlnvi acid 400 1 tablet PO DAILY 02/13/22 12/16/24 History mcg-lycopene 600 mcg-ginkgo 120 mg tablet omeprazole 20 mg capsule,delayed 20 mg PO DAILY 06/08/22 12/16/24 History release semaglutide 1 mg/dose (4 mg/3 mL) 1.5 mg subcut WEEKLY 04/12/23 12/16/24 History subcutaneous pen injector insulin glargine 100 unit/mL (3 45 unit subcut .COMPLEX 03/07/24 12/16/24 History mL) subcutaneous pen (Lantus Solostar U-100 Insulin) atenolol 50 mg tablet 50 mg PO QAM #90 tabs 06/05/24 12/16/24 Rx celecoxib 200 mg capsule 200 mg PO BID #200 caps 07/17/24 12/16/24 Rx rosuvastatin 10 mg tablet 10 mg PO HS #90 tabs 07/20/24 12/16/24 Rx gabapentin 300 mg capsule 300 mg PO BID #60 caps 07/21/24 12/16/24 Rx aspirin 81 mg tablet,delayed 81 mg PO QAM #30 tabs 08/29/24 12/16/24 Rx release fenofibrate micronized 200 mg See Rx Instructions .Route 10/15/24 12/16/24 Rx capsule .COMPLEX #90 caps apixaban 5 mg tablet (Eliquis) 5 mg PO BID #180 tabs 12/07/24 12/16/24 Rx tramadol 50 mg tablet 50 mg PO Q6H PRN pain #120 tabs 12/14/24 12/16/24 Rx Allergies Allergy/AdvReac Type Severity Reaction Status Date / Time sulfamethoxazole (From Allergy Mild Rash Verified 12/16/24 08:50 Bactrim) trimethoprim (From Bactrim) Allergy Mild Rash Verified 12/16/24 13:00 Vital Signs Vital Signs - 24 hr 12/16/24 08:23 12/16/24 08:43 12/16/24 08:43 Temperature 97.8 F Pulse Rate 72 77 74 Respiratory Rate 18 19 19 Blood Pressure 153/77 H 153/77 H 153/77 H Pulse Oximetry 100 100 100 Oxygen Delivery Room Air 12/16/24 08:43 12/16/24 09:32 12/16/24 10:35 Temperature Pulse Rate 75 73 71 Respiratory Rate 15 13 Blood Pressure 150/82 H 149/72 H Pulse Oximetry 100 100 Oxygen Delivery 12/16/24 11:10 12/16/24 13:53 Temperature 97.6 F 99.1 F Pulse Rate 73 77 Respiratory Rate 15 16 Blood Pressure 149/74 H 148/67 H Pulse Oximetry 100 98 Oxygen Delivery Exam 2 Const: General: cooperative, well developed and alert O rientation/consciousness: oriented to person, oriented to place and oriented to time HENMT: Head: atraumatic Eyes: Alignment and Position: position normal Pupils: Equal, round and reactive pupils present EOM: EOMs intact bilaterally Other: No apparent restriction in the extraocular movements. Pupils were also equal reacting. However he complained of seeing double when looking on the extreme gaze to the left side particularly when looking down. Neck: Neck: supple Resp: Effort & Inspection: normal respiratory effort Cardio: Rate: regular rate Rhythm: regular rhythm Other: No carotid bruit. Skin: General skin exam: normal color Neuro: Cranial nerves: Yes CN's II-XII intact bilaterally, Yes facial sensation intact/muscles of mastication intact, Yes Equal, round and reactive pupils present, Yes Bilaterally intact EOM present, Yes Nystagmus not present, Yes facial symmetry, Yes Midline tongue present, Yes Symmetric palate elevation present and Yes Ability to bilaterally elevate shoulders present Cognition (Neuro): normal cognition Speech: normal speech Motor exam (neuro): 5/5 motor strength present throughout, Motor fasciculations not present, Normal motor muscle tone present throughout and Motor abnormalities not present S ensory Exam: normal sensation Coordination: [id number]-qd-tgjj test normal and Normal rapid alternating movements of the distal upper extremity present (Neuro) Results Labs 12/16/24 08:39 12/16/24 08:39 Labs: Short CBC 12/16/24 Range/Units 08:39 WBC 4.4 L (4.5-10.0) K/mm3 Hgb 10.9 L (14.0-18.0) g/dL Hct 36.2 L (42.0-52.0) % Plt Count 296 (150-375) k/mm3 BMP 12/16/24 08:39 Sodium 139 Potassium 4.3 Chloride 108 H Carbon Dioxide 26 BUN 10 D Creatinine 1.05 Glucose 134 H Calcium 9.6 Cardiac Enzymes 12/16/24 Range/Units 08:39 Troponin I < 0.012 (0.000-0.034) ng/mL Liver Function 12/16/24 Range/Units 08:39 Total Bilirubin 0.4 (0.2-1.3) mg/dL AST 39 (17-59) U/L ALT 27 (6-50) U/L Alkaline Phosphatase 58 (38-126) U/L Albumin 3.8 (3.5-5.1) g/dL Urine 12/16/24 Range/Units 10:36 Urine Color Red H (Yellow) Urine Appearance Clear (Clear) Urine pH 8.0 (5.0-9.0) Ur Specific [place] > 1.045 H (1.001-1.035) Urine Protein 1+ H (Negative) mg/dL Urine Glucose (UA) Negative (Negative) mg/dL
[2024-12-16 15:28] LABS: Hemoglobin A1C 7.4 % (<5.7)
[2024-12-16 16:11] LABS: Hemoglobin A1C 7.4 % (<5.7)
[2024-12-16 16:23] LABS: CRP < 0.5 mg/dL (<1.0); Cholesterol 111 mg/dL (0-200); HDL Direct 51 mg/dL; Triglycerides 76 mg/dL (<150)
[2024-12-16 16:57] LABS: Thyroid Stimulating Hormone 2.620 uIU/mL (0.465-4.680)
[2024-12-16] MEDS: APIXABAN 5 MG TABLET PO (17:14)
[2024-12-16] MEDS: GABAPENTIN 300 MG CAPSULE PO (17:14)
[2024-12-16 17:32] LABS: Vitamin B12 867.0 pg/mL (239-931)
[2024-12-16] MEDS: INSULIN GLARGINE (*BKC) 100 UNITS/ML 85 UNITS SUB-Q (21:04)
[2024-12-16] MEDS: ROSUVASTATIN 10 MG TABLET 20 MG PO (21:04)
[2024-12-17] VITALS (7 sets, daily range): BP systolic 133–159; BP diastolic 66–70; PULSE 71–95; RESP 16; TEMP 36.4–36.6; O2SAT 98–99
[2024-12-17] MEDS: LEVOTHYROXINE SODIUM 100 MCG TABLET PO (06:17)
[2024-12-17] MEDS: LEVOTHYROXINE SODIUM 75 MCG TABLET PO (06:17)
[2024-12-17] MEDS: FENOFIBRATE NANOCRYSTALLIZED 145 MG TABLET PO (09:06)
[2024-12-17] MEDS: INSULIN GLARGINE (*BKC) 100 UNITS/ML 45 UNITS SUB-Q (09:06)
[2024-12-17] MEDS: cefTRIAXone 1 GM in SODIUM CHLORIDE 0.9% IV 50 ML 100 ML IVPB (09:06)
[2024-12-17] MEDS: GABAPENTIN 300 MG CAPSULE PO (09:06)
[2024-12-17] MEDS: PANTOPRAZOLE 40 MG TABLET PO (09:06)
[2024-12-17] MEDS: CYANOCOBALAMIN 1,000 MCG TABLET 1000 MCG PO (09:06)
[2024-12-17] MEDS: APIXABAN 5 MG TABLET PO (09:06)
[2024-12-17] MEDS: ASPIRIN 81 MG ENTERIC TABLET PO (09:06)
--- NOTE | 2024-12-17 16:45 | PM.DS ---
DS: Admitting Diagnosis Discharge Date 12/17/2024 Admitting Diagnosis Double vision DS: Discharge Diagnosis Discharge Diagnosis (1) Double vision: Code(s): H53.2 - Diplopia Status: Acute DS: Summary Hospital Course Hospital Course: 74-year-old male with PMH DVTs and PE currently on Eliquis, history of multiple TIAs on aspirin, chronic gross hematuria, history of prostate cancer status post Keytruda and BCG, insulin-dependent diabetes mellitus, hypertension, GERD, hyperlipidemia, hypertension presents to [facility] on 12/16/2024 with a complaint of dizziness and headache and double vision since the night prior. MRI 12/16/2024:Tiny focus of acute infarct in the right parietal cortex. Left internal carotid artery occlusion to the level of the carotid siphon, as noted on the prior CTA. No other acute intracranial finding detected. His blurry vision improved. There is no restriction of the eye movements are extraocular muscles. Neuro exam without any deficits. Neurology consultation completed. 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 increased to 20 mg. He has been compliant with ARBORICULTURE TEACHER medications Eliquis 5 mg p.o. b.i.d. and aspirin 81 mg p.o. q.a.m.. We discussed the risks versus benefits. Considering any higher doses of aspirin could cause additional hematuria, will not increased. At the same time, patient has been taking these chronically and has been accepting of his gross hematuria. Therefore, will continue for secondary DVT prophylaxis and secondary stroke prophylaxis. He currently sees Dr. Worthy with [facility]. He is being referred to [facility] for experimental trials. He recently had a cystoscopy she reports was reported normal. Whenever he discontinues Eliquis the hematuria resolves. However, he continues to use to take the Eliquis. With shared decision making the patient would like to continue with antibiotics. He was taken amoxicillin after the recent cystoscopy 2-3 days prior to admission. Urinalysis on admission grossly abnormal. With bacteria. Urine cultures pending. Will discharge with Augmentin, and will monitor the urine culture. Patient amenable to this and eager to return home. He was full code during the admission. Time Spent with Patient Time attestation: Total time spent providing and/or coordinating discharge services: Exam Const: General: comfortable and no acute distress HENMT: Mouth: Yes moist mucous membranes Eyes: Sclera: sclerae normal Pupils: Equal, round and reactive pupils present EOM: EOMs intact bilaterally Neck: Neck: supple Resp: Effort & Inspection: normal respiratory effort Auscultation: clear to auscultation bilaterally Cardio: Rate: regular rate Rhythm: regular rhythm GI: Inspection: non-distended GI Palp: Yes Soft to palpation Neuro: Motor exam (neuro): 5/5 motor strength present throughout Extrem: General: no edema DS: Data Data Completed and Pending Labs on day of discharge: Labs from last 24 hours 12/17/24 12/17/24 12/17/24 11:29 08:00 02:04 POC Capillary Glucose 173 H 123 H 99 Vitamin B12 Folate TSH Thyroxine (T4) Striated Muscle Ab Striated Muscle Ab Ttr Acetylchol Rcpt Block Ab Acetylchol Rcpt Bind Ab Acetylchol Rcpt Modu Ab MuSK Reflex Information 12/16/24 12/16/24 12/16/24 20:20 15:56 15:53 POC Capillary Glucose 160 H Vitamin B12 867.0 Folate 15.3 TSH 2.620 Thyroxine (T4) 10.20 Striated Muscle Ab Cancelled Pending Striated Muscle Ab Ttr Cancelled Acetylchol Rcpt Block Ab Cancelled Pending Acetylchol Rcpt Bind Ab Cancelled Pending Acetylchol Rcpt Modu Ab Cancelled Pending MuSK Reflex Information Pending Discharge Plan Discharge Attending physician on discharge: Perla Bay Consulting providers: Neena Koch Discharging Clinician: Perla Bay Patient Disposition: Home Activity: september shower Diet: heart healthy and diabetic Patient Instructions: Antibiotic Form, Apixaban (By mouth) Patient Language: Polish Stand Alone Forms: General Discharge Information Follow-up/Referrals: Neena Koch MD [Physician] - Larry Morel MD [Primary Care Provider] - Discharge Medications: New rosuvastatin [Crestor] 10 mg Tablet 20 mg PO HS Qty: 30 0RF Continued levothyroxine 175 mcg tablet 175 mcg PO QAM metformin 500 mg tablet extended release 24hr 1,000 mg PO BID insulin lispro [Humalog KwikPen Insulin] 100 unit/mL insulin pen See Rx Instructions .ROUTE .COMPLEX Patient Comments: based on carb intake Rx Instructions: on sliding scale TID mecobalamin (vitamin B12) 1,000 mcg tablet,disintegrating 1,000 mcg PO QAM omeprazole 20 mg capsule,delayed release(DR/EC) 20 mg PO DAILY semaglutide 1 mg/dose (4 mg/3 mL) pen injector 1.5 mg subcut WEEKLY Patient Comments: hold prior to bladder surgery 09/14/24 Rx Instructions: WEDNESDAYS ey-theh-movdf-lycopene-ginkgo 400-600-120 mcg-mcg-mg Tablet 1 tablet PO DAILY insulin glargine [Lantus Solostar U-100 Insulin] 100 unit/mL (3 mL) insulin pen 45 unit subcut .COMPLEX Rx Instructions: 45 units subcutaneously in AM and 85 units subcutaneously in PM atenolol 50 mg tablet 50 mg PO QAM Qty: 90 1RF Patient Comments: . Rx Instructions: TAKE 1 TABLET BY MOUTH DAILY gabapentin 300 mg capsule 300 mg PO BID Qty: 60 4RF aspirin 81 mg tablet,delayed release (DR/EC) 81 mg PO QAM Qty: 30 3RF Patient Comments: hold for 48 hours prior to 09/14/24 fenofibrate micronized 200 mg capsule See Rx Instructions .ROUTE .COMPLEX Qty: 90 0RF Dose Instruction: TAKE 1 CAPSULE(200MG) BY MOUTH DAILY Rx Instructions: TAKE 1 CAPSULE(200MG) BY MOUTH DAILY Eliquis 5 mg tablet 5 mg PO BID Qty: 180 0RF Patient Comments: HOld for 48 hr prior to 09/14/24. tramadol 50 mg tablet 50 mg PO Q6H PRN (Reason: pain) Qty: 120 0RF Discontinued celecoxib 200 mg capsule 200 mg PO BID Qty: 200 3RF Patient Comments: . rosuvastatin 10 mg tablet 10 mg PO HS Qty: 90 0RF Date of admission: 12/16/24 10:15 Primary Care Provider: Larry Morel Admitting Provider: Roselia Villasenor Attending physician on admission: Roselia Villasenor Condition: Improved Hospitalist MIPS Heart Failure (Exclusion) Patient has history of Heart Transplant or Left Ventricular Assistive Device?: No IF YES, STOP HERE Heart Failure (Qualifier) Patient has current or prior documentation of LVEF less than or equal to 40%, or mod/servere depressed LVSF?: No IF NO, STOP HERE
--- NOTE | 2024-12-17 17:04 | WPDNEUROPN ---
Progress Note: A&P Assessment and Plan (1) Left-sided fourth cranial nerve palsy: Code(s): H49.12 - Fourth [trochlear] nerve palsy, left eye Status: Acute (2) Left carotid artery occlusion: Code(s): I65.22 - Occlusion and stenosis of left carotid artery Status: Acute (3) Essential hypertension: Code(s): I10 - Essential (primary) hypertension Status: Acute (4) Insulin dependent diabetes mellitus: Status: Chronic (5) Bladder cancer: Qualifiers: Bladder location: unspecified site Qualified Code(s): C67.9 - Malignant neoplasm of bladder, unspecified Code(s): C67.9 - Malignant neoplasm of bladder, unspecified Status: Acute Plan I have explained the findings to the patient. A and anti-platelet and statin I recommended however the patient has been on anticoagulation on account of deep vein thrombosis in the calf. He has been having hematuria and hence this should be closely observed and for the changes made depending upon his progress. I will be glad to see him from neurologic point of view in 3 4 weeks time in my office. Should there be any further developments I have advised him to come to the emergency room. Symptomatic treatment for headache can be given. Certainly passing of the left eye would help avoid the diplopia. Subjective Date/time seen: 12/17/24 17:04 Interval history: The patient is 74-year-old with symptoms of diplopia. He called the nursing staff earlier today that he was having severe headache and he also thought the left eye was droopy. No other unusual symptoms reported. Patient history of diabetes mellitus and obstructive sleep apnea syndrome. Known to have a complete occlusion of the left internal carotid artery and 40% narrowing of the right internal carotid artery. Is also history of carcinoma of bladder and a subsequent learned that he has been on anticoagulation on account of recurrent pulmonary embolism and he has bleeding in the urine. MRI of the brain was performed yesterday which did not show evidence for any new findings. There is some questionable finding the right parietal area which did not appear difficult. Review of Systems Review of Systems: Patient denies any history of chronic headache however these have occurred on and off since he developed diplopia. He is trying to keep his left eye Closed with a patch. All systems reviewed & are unremarkable except as noted in HPI and below Exam Const: General: cooperative, well developed and alert Orientation/consciousness: patient oriented x3 HENMT: Head: atraumatic Mouth: Yes oropharynx normal Eyes: Alignment and Position: position normal Pupils: Equal, round and reactive pupils present EOM: EOMs intact bilaterally Other: complaints of a seeing double in the left lower field of vision. No ptosis was noted. Extraocular movements were full and intact. Pupils were also a equal react to light. Neck: Neck: supple Resp: Effort & Inspection: normal respiratory effort Cardio: Rate: regular rate Rhythm: regular rhythm Skin: General skin exam: normal color Neuro: General: patient oriented x3 Cranial nerves: Yes CN's II-XII intact bilaterally, Yes facial sensation intact/muscles of mastication intact, Yes Equal, round and reactive pupils present, Yes Bilaterally intact EOM present, Yes Nystagmus not present, Yes facial symmetry, Yes Midline tongue present, Yes Symmetric palate elevation present and Yes Ability to bilaterally elevate shoulders present Cognition (Neuro): normal cognition Speech: normal speech Motor exam (neuro): 5/5 motor strength present throughout Sensory Exam: normal sensation Coordination: beztky-go-ssye test normal and Normal rapid alternating movements of the distal upper extremity present (Neuro) Objective Data Vital Signs Vital Signs: Vital Signs - 24 hr 12/16/24 20:00 12/16/24 20:00 12/16/24 21:08 Temperature 98.1 F Pulse Rate 75 72 Respiratory Rate 20 Blood Pressure 147/72 H Pulse Oximetry 97 Oxygen Delivery Room Air 12/17/24 00:00 12/17/24 04:00 12/17/24 06:00 Temperature 97.8 F Pulse Rate 71 71 80 Respiratory Rate 16 Blood Pressure 133/70 Pulse Oximetry 98 Oxygen Delivery 12/17/24 14:05 Temperature 97.6 F Pulse Rate 77 Respiratory Rate 16 Blood Pressure 159/66 H Pulse Oximetry 99 Oxygen Delivery Intake/Output Intake/Output: Intake & Output 12/14/24 12/15/24 12/16/24 12/17/24 23:59 23:59 23:59 23:59 Intake Total 340 690 Balance 340 690 Meds/Results Medications: Active Medications Generic Name Dose Route Start Last Admin Trade Name Freq PRN Reason Stop Dose Admin Apixaban 5 mg 12/16/24 17:00 12/17/24 09:06 Apixaban 5 Mg Tablet PO 5 mg BID LI Administration Aspirin 81 mg 12/16/24 14:20 12/17/24 09:06 Aspirin 81 Mg Enteric Tablet PO 81 mg QAM LI Administration Cyanocobalamin 1,000 mcg 12/16/24 14:30 12/17/24 09:06 Cyanocobalamin 1,000 Mcg Tablet PO 01/16/25 14:29 1,000 mcg QAM LI Administration Dextrose 12.5 gm 12/16/24 14:44 Dextrose 50% 25 Gm/50 Ml Syringe IV PUSH PRN PRN Hypoglycemia Protocol Fenofibrate 145 mg 12/16/24 14:15 12/17/24 09:06 Fenofibrate Nanocrystallized 145 Mg Tablet PO 145 mg DAILY LI Administration Gabapentin 300 mg 12/16/24 17:00 12/17/24 09:06 Gabapentin 300 Mg Capsule PO 300 mg BID LI Administration Glucagon 1 mg 12/16/24 14:44 Glucagon For Inj 1 Mg Vial IM PRN PRN Hypoglycemia Protocol Glucose 15 gm 12/16/24 14:44 Glucose Oral Gel 15 Gm Of Glucse In 37.5 Gm Tube PO PRN PRN Hypoglycemia Protocol Ceftriaxone Sodium 1 gm/ 50 mls @ 100 mls/hr 12/17/24 09:00 12/17/24 09:06 Sodium Chloride IVPB 100 mls/hr Q24H LI Administration Dextrose 1,000 mls @ 100 mls/hr 12/16/24 14:44 Dextrose 5% 1,000 Ml IVPB PRN PRN Hypoglycemia Protocol Insulin Aspart 4 - 8 units 12/16/24 17:00 12/17/24 11:44 Insulin Aspart (*Bkc) 100 Units/Ml SUB-Q Not Given TIDWM LI Protocol Insulin Aspart 2 - 4 units 12/16/24 21:00 12/16/24 21:15 Insulin Aspart (*Bkc) 100 Units/Ml SUB-Q Not Given HS LI Protocol Insulin Glargine 45 units 12/17/24 09:00 12/17/24 09:06 Insulin Glargine (*Bkc) 100 Units/Ml SUB-Q 45 units QAM LI Administration Insulin Glargine 85 units 12/16/24 21:00 12/16/24 21:04 Insulin Glargine (*Bkc) 100 Units/Ml SUB-Q 85 units HS LI Administration Levothyroxine Sodium 100 mcg 12/17/24 06:30 12/17/24 06:17 Levothyroxine Sodium 100 Mcg Tablet PO 100 mcg DAILY@0630 LI Administration Levothyroxine Sodium 75 mcg 12/17/24 06:30 12/17/24 06:17 Levothyroxine Sodium 75 Mcg Tablet PO 75 mcg DAILY@0630 LI Administration Miscellaneous Information 0 each 12/16/24 00:01 Semaglutide = Non Formulary XX 01/15/25 00:00 CLARIFY LI Non-Formulary Medication 1.5 mg 12/16/24 09:00 Semaglutide SUB-Q 01/15/25 08:59 WEEKLY LI Pantoprazole Sodium 40 mg 12/16/24 14:30 12/17/24 09:06 Pantoprazole 40 Mg Tablet PO 01/16/25 14:29 40 mg DAILY LI Administration Perflutren Lipid Microsphere 0 ml 12/16/24 10:39 Perflutren Lipid Microspheres 1.5 Ml Vial Diluted To 10 Ml Total Volume IV PUSH 12/19/24 10:39 ONCE PRN adequate visualization Protocol Rosuvastatin Calcium 20 mg 12/16/24 21:00 12/16/24 21:04 Rosuvastatin 10 Mg Tablet PO 20 mg HS LI Administration Tramadol HCl 50 mg 12/16/24 14:12 Tramadol Hcl (*Crx) 50 Mg Tablet PO Q6H PRN pain 4-6 Radiology Results: ITS Impressions Head/Neck CTA 12/16/24 09:30 IMPRESSION: 1. 40% stenosis of the right carotid bulb relative to normal distal artery lumen diameter (NASCET criteria). 2. Persistent complete occlusion of the extracranial left internal carotid artery with reconstitution at the carotid siphon, unclear whether via ophthalmic artery or retrograde flow supplied from the right internal carotid artery via a patent anterior communicating artery. 3. Small old infarcts in bilateral basal ganglia and right parietal rolon radiata. No acute intracranial process. 4. Age-related changes including mild diffuse volume loss and moderate scattered white matter hypoattenuation consistent with chronic small vessel ischemic disease. Brain MRI 12/16/24 15:16 IMPRESSION: Tiny focus of acute infarct in the right parietal cortex. Left internal carotid artery occlusion to the level of the carotid siphon, as noted on the prior CTA. No other acute intracranial finding detected. Results reported telephonically to Nola Valdez RN by Dr. Barton at 3:35 PM on 12/16/2024. Labs Labs: Laboratory Results - last 24 hr 12/16/24 12/16/24 12/17/24 15:56 20:20 02:04 POC Capillary Glucose 160 H 99 Vitamin B12 867.0 Folate 15.3 Striated Muscle Ab Cancelled Striated Muscle Ab Ttr Cancelled Acetylchol Rcpt Block Ab Cancelled Acetylchol Rcpt Bind Ab Cancelled Acetylchol Rcpt Modu Ab Cancelled 12/17/24 12/17/24 12/17/24 08:00 11:29 16:39 POC Capillary Glucose 123 H 173 H 134 H Vitamin B12 Folate Striated Muscle Ab Striated Muscle Ab Ttr Acetylchol Rcpt Block Ab Acetylchol Rcpt Bind Ab Acetylchol Rcpt Modu Ab
[2024-12-18 12:07] LABS: Estimated CRCL calculation 54 ml/min; Estimated Glomerular Filt Rate 59
== END 2024-12-17 17:55 | disposition home or self-care (01) ==
LOC: ANHED 08:14 → ANH3MEDSUR 11:11
PROVIDERS: Psychiatry & Neurology Neurology; Admitting Provider Hospitalist; Emergency Provider Emergency Medicine; PCP Family Medicine; Visit Provider General Practice
DX: H49.12 Fourth [trochlear] nerve palsy, left eye (principal); I65.22 Occlusion and stenosis of left carotid artery; H53.2 Diplopia; C67.9 Malignant neoplasm of bladder, unspecified; N39.0 Urinary tract infection, site not specified; D64.9 Anemia, unspecified; I10 Essential (primary) hypertension; E11.9 Type 2 diabetes mellitus without complications; E78.5 Hyperlipidemia, unspecified; E03.9 Hypothyroidism, unspecified; I71.20 Thoracic aortic aneurysm, without rupture, unspecified; K21.9 Gastro-esophageal reflux disease without esophagitis; G47.33 Obstructive sleep apnea (adult) (pediatric); Z87.891 Personal history of nicotine dependence; Z79.4 Long term (current) use of insulin; Z79.85 Long-term (current) use of injectable non-insulin antidiabetic drugs; Z79.84 Long term (current) use of oral hypoglycemic drugs; Z86.711 Personal history of pulmonary embolism; Z86.718 Personal history of other venous thrombosis and embolism; Z79.01 Long term (current) use of anticoagulants; Z79.82 Long term (current) use of aspirin; Z98.890 Other specified postprocedural states; Z86.73 Personal history of transient ischemic attack (TIA), and cerebral infarction without residual deficits
CPT/HCPCS: 36415; 70496; 70498; 70553; 80053; 80061; 81001; 82306; 82565; 82607; 82746; 82948; 83036; 84436; 84443; 84484; 85025; 85610; 85730; 86140; 86255; 87086; 93005; 93306; 96365; 96375; 96376; 99285; A9270; A9577; G0378; J0696; J1815; J2060; Q9967

== ENCOUNTER 2024-12-29 12:11 | Outpatient (CLI) | payer MEDICARE, SELFPAY ==
--- OUTSIDE RECORDS SUMMARY | 2024-12-29 12:15 | XMS_ITS | Encounter Summary ---
Author Organization [facility] [employer] Address [address] [place] [address] Care Team Providers Care Client Server Developer Name Role Phone Pantera Bolivar MD Primary Care Provider Encounter Details Date Type Department Care Team (Late st Contact Info) Description 12/25/2024 Orders Only [facility] Oncology and Hematology - [place] [address] [facility] [address] [place] [address] Mikael Gomes MD [address] [facility] [address] [place] [address] Carcinoma in situ of bladder Social History Tobacco Use Types Packs/Day Years Used Date Smoking Tobacco: Former Cigarettes 2 10 Q uit: 02/16/1989 Alcohol Use Standard Drinks/Week Comments Yes 0 (1 standard drink = 0.6 oz pur e alcohol) occasionally Sex and Gender Information Value Date Recorded Sex Assigned at Not on file Legal Sex Male 3:22 AM SLOT SERVICE SPECIALIST Gender Identity Male 09/13/2024 10:33 AM CDT Sexual Orientation Straight 09/13/2024 10 :33 AM CDT documented as of this encounter Plan of Treatment Not on file documented as of this encounter Visit Diagnoses Diagnosis Carcinoma in situ of bladder documented in this encounter Care Teams Client Server Developer Relationship Specialty Start Date End Date Pantera Bolivar MD [address] [place] [address] [address] [place] [id number] PCP - General 05/02/15 documented as of this encounter
--- OUTSIDE RECORDS SUMMARY | 2024-12-29 12:16 | XMS_ITS | Encounter Summary ---
Author Organization [email or web address] Address 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 Phone Number INTERFACE SYSTEM Refer to clinic/hospital department * (ABNORMAL) GLUCOSE, CSF (08/31/2006 10:25 AM CDT) GLUCOSE, CSF 95(H) 40 - 70 mg/dL INTERFACE SYSTEM 08/31/2006 10:2 5 AM CDT us Cornelius Orlando MD BODY FLUIDS AND STOOLS Edited Performing Organization Address [facility] de Phone Number INTERFACE SYSTEM [...] FLUIDS AND STOOLS Edited Performing Organization Address [facility] Phone Number INTERFACE SYSTEM Refer to clinic/hospital department documented in this encounter Visit Diagnoses Diagnosis Spinal stenosis, lumbar region, without neurogenic claudication- Primary documented in this encounter Care Teams Director Of Customer Service Relationship Specialty Start Date End Date Pantera Bolivar MD [address] [place] [address] PCP - General 05/02/15 documented as of this encounter
--- OUTSIDE RECORDS SUMMARY | 2024-12-29 12:16 | XMS_ITS | Encounter Summary ---
Author Organization [facility] Address 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 Gender Identity Male 09/13/2024 10:33 AM CDT [...] CREATININE POC 1.0 0.6 - 1.3 mg/dL [facility] Capillary blood specimen (specimen) 09/02/2007 7:18 AM CDT 09/02/2007 7:18 AM CDT us Aniceto Ramirez DO POINT OF CARE TESTING Final R esult [facility] [address] [place] [address] documented in this encounter Visit Diagnoses Diagnosis Backache, unspecified documented in this encounter Care Teams Pricing Analyst Relationship Specialty Start Date End Date Pantera Bolivar MD [address] [place] [address] [address] [place] [address] PCP - General 05/02/15 documented as of this encounter
--- OUTSIDE RECORDS SUMMARY | 2024-12-29 12:16 | XMS_ITS | Clinical Summary ---
Author Organization [facility] Address [address] [place] [address] Phone Care Team Providers Care Plaster Machine Operator Name Role Phone Larry Morel MD Primary Care Provider [phone] Allergies No known active allergies Medications atenolol [...] solution pen-injector 06/09/2021 Active TRUEplus 5-Bevel Pen [place] 31G X 8 MM misc USE FIVE [...] on file Legal Sex Male 8:47 AM [facility] Gender Identity Not on file Sexual [...] 1999 Influenza Vaccine (#1) 2025 Insurance MEDICARE [facility] [employer] Care Teams Plaster Machine Operator Relationship Specialty Start Date End Date Larry Morel MD [address] [place] [id number] PCP - General Family Medicine 04/28/21
--- OUTSIDE RECORDS SUMMARY | 2024-12-29 12:16 | XMS_ITS | Encounter Summary ---
Author Organization [facility] Address [address] [place] [address] Care Team Providers Care Ad Writer Name Role Phone Pantera Bolivar MD Primary Care Provider [phone] Encounter Details Date Type Department Care Team (Late st Contact Info) Description 09/14/2000 Outpatient [facility] [address] 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
--- OUTSIDE RECORDS SUMMARY | 2024-12-29 12:16 | XMS_ITS | Patient Health Record ---
Author Organization [facility] Address [address] [address] Care Team Providers Care Core Shaper Sides Name Role Phone Larry Morel Primary Care Provider Noam Gar Unavailable [phone] Linnea Orlando Unavailable [phone] ALLERGIES No Known Allergies RESULTS Component Value Reference Range Notes Hemoglobin A1c Reviewed date:03/22/2024 12:26:54 PM Interpretation: Performing Lab:[facility], [address] [facility], Phone - [phone], Director - Ja Notes/Report: Hemoglobin A1c 6.7 4.8-5.6 % . Prediabetes: 5.7 - 6.4 Diabetes: >6.4 Glycemic control for adults with diabetes: <7.0 Comp Metabolic Panel (14) Reviewed date:03/22/2024 12:27:10 PM Interpretation: Performing Lab:[facility], [address] [facility], Phone - [phone], Director - PhDJosh Notes/Report: Glucose 148 70-99 [...] A1c Reviewed date:06/30/2024 12:24:52 PM Interpretation: Performing Lab:[facility], [address] [facility], Phone - [phone], Director - [facility] Notes/Report: Hemoglobin A1c 7.6 4.8-5.6 % . Prediabetes: 5.7 - 6.4 Diabetes: >6.4 Glycemic control for adults with diabetes: <7.0 Comp Metabolic Panel (14) Reviewed date:06/30/2024 12:25:24 PM Interpretation: Performing Lab:[facility], [address] [facility], Phone - [phone], Director - [facility] Notes/Report: Glucose 89 70-99 mg/dL BUN 15 [...] et Reviewed date:11/15/2024 11:41:41 PM Interpretation: Performing Lab[facility], [address] [facility], Phone - [phone], Director - Ja Notes/Report: WBC 7.2 3.4-10.8 [...] (14) Reviewed date:11/15/2024 03:28:23 PM Interpretation: Performing Lab:[facility], [address] [facility], Phone - [phone], Director - Ja Notes/Report: Glucose 198 70-99 [...] Duration) Notes Start Date End Date Status traZODone HCl 50 MG 1 tablet at bedtime as needed Orally Once a day Active Vitamin B-12 1000 MCG 1 tablet Orally Once a day 0 01/27/2019 Active Complete Multi-Vitamin Orally Once a Day Active Omeprazole 20 MG 1 capsule Orally Onc e a day for 90 days Active Eliquis 5 MG 1 tablet Orally Twic e a day 07/21/2023 Active TRUEplus Pen [place] 31G X 8 MM USE DIRECTED 5 TIMES A DAY for 90 Active Gabapentin 300 MG 1 Capsule Orally Two Times a Day Active Accu-Chek SmartView - DXCODE: E11.65, ID DM) Use 1 Test Strip In Vitro Three Times a Day for 90 days Active Accu-Chek FastClix Lancets - DXCODE: E11.65, IDDM) Use 1 Lancet Subcutaneously Three Times a Day Active Atenolol 50 MG 1 tablet Orally Once a day Active metFORMIN HCl ER 500 MG 2 tablets Orally Two Times a Day Active Rosuvastatin Calcium 10 MG 1 tablet Orally Once a day Active DexYippee Arts G7 Sensor - as directed Active Fenofibrate Micronized 200 MG TAKE 1 CAPSULE BY MOUTH ONCE A DAY Active Dexcom G7 Efficiency Analyst - as directed Active Levothyroxine Sodium 175 MCG 1 tablet in the morning on an empty stomach Orally Once a day Active IMMUNIZATIONS Vaccine Route Administration Date Status Comme nts Influenza IM Intramuscular 02/08/2020 Administered Pt received Influenza HD Lot #[id number] EXP November 13 2020 PROBLEMS Problem Type ICD Code Onset Dates Problem Status W/U Status Risk SNOMED Code Notes Problem Peripheral neuropathy (G62.9) Active confirmed Periphera l neuropathy (859651157) Problem CVA (cerebral infarction) (I63.9) Active confirmed Cerebrov ascular accident (635975781) Problem Benign hypertension (I10) Active confirmed 38650871 Problem Vitamin D deficiency, unspecified (E55.9) Active confirmed Vitamin D deficiency (88347414) Problem Type 2 diabetes mellitus with hyperglycemia (E11.65) Active confirmed Hyperglycemia d ue to type 2 diabetes mellitus (658709645205408) Problem Kidney stone (N20.0) Active confirmed Kidney stone (08671816) Problem Hypercalcemia (E83.52) Active confirmed Hypercalcemia (14819138) Problem 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) Active confirmed Mixed hyperlipidemia (157153602) Problem Unspecified hypothyroidism (E03.9) Active confirmed 73294807 Problem 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) Active confirmed 718945248 Problem Thrombophlebitis (I80.9) Active confirmed Thrombophlebiti s (28735186) Problem Deficiency of other specified B group vitamins (E53.8) Active confirmed Vitamin B deficiency (61579270) Problem 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) Active confirmed Glucose product (845772364) VITAL SIGNS Heart Rate 97 /min 12/28/2024 Blood pressure diastolic 62 mm Hg 12/28/2024 Height 73 in 12/28/2024 Blood pressure systolic 132 mm Hg 12/28/2024 Weight 199.8 lbs 12/28/2024 BMI 26.36 kg/m2 12/28/2024 Encounters Encounter Location Date Provider Diagnosis [facility] [address] [address] 03/10/2024 Linnea Orlando [facility] [address] [address] 03/21/2024 Noamabigail Horn Type 2 diabetes mellitus with hyperglycemia [...] and Kidney stone N20.0 [facility] [address] [place] [address] 06/29/2024 Noam Horn Type 2 diabetes mellitus with [...] and Kidney stone N20.0 [facility] [address] [place] [address] 10/05/2024 Noam Horn [facility] [address] [place] [address] 11/14/2024 Noamabigail Horn Type 2 diabetes mellitus with hyperglycemia [...] and Kidney stone N20.0 [facility] [address] [place] [address] 12/28/2024 Noam Oiknine Type 2 diabetes mellitus with [...] Kidney stone N20.0 [facility] [address] [address] 01/03/2024 Noam Oiknine Type 2 diabetes mellitus with hyperglycemia E11.65 [facility] [address] [address] 01/03/2024 Noam Oiknine Unspecified hypothyroidism E03.9 [facility] [address] [address] 03/08/2024 Noam Oiknine Type 2 diabetes mellitus with hyperglycemia E11.65 [facility] [address] [address] 03/14/2024 Noam Oiknine [facility] [address] [address] 03/23/2024 Noam Oiknine Type 2 diabetes mellitus with hyperglycemia E11.65 [facility] [address] [address] 05/22/2024 Noam Oiknine Type 2 diabetes mellitus with hyperglycemia E11.65 [facility] [address] [address] 06/29/2024 Noam Oiknine [facility] [address] [address] 08/02/2024 Noam Oiknine [facility] [address] [address] 08/08/2024 Noam Oiknine Type 2 diabetes mellitus with hyperglycemia E11.65 [facility] [address] [address] 09/06/2024 Noam Oiknine Type 2 diabetes mellitus with hyperglycemia E11.65 [facility] [address] [address] 09/06/2024 Noam Oiknine Type 2 diabetes mellitus with hyperglycemia E11.65 [facility] [address] [address] 10/19/2024 Noam Oiknine Unspecified hypothyroidism E03.9 [facility] [address] [address] 11/15/2024 Noam Oiknine Anemia D64.9 [facility] [address] [address] 11/27/2024 Noam Oiknine Type 2 diabetes mellitus with hyperglycemia E11.65 [facility] [address] [address] 12/27/2024 Noam Oiknine Type 2 diabetes mellitus with [...] E11.65) 11/14/2024 Peripheral neuropathy (ICD-10 - G62.9) 12/28/2024 Type 2 diabetes mellitus with hyperglycemia (ICD-10 - E11.65) 12/28/2024 Peripheral neuropathy (ICD-10 - G62.9) 01/03/2024 Type 2 diabetes mellitus with hyperglycemia [...] diabetes mellitus with hyperglycemia (ICD-10 - E11.65) 12/27/2024 Type 2 diabetes mellitus with hyperglycemia (ICD-10 - E11.65) 03/21/2024 Unspecified hypothyroidism (ICD-10 - E03.9) 06/29/2024 Unspecified hypothyroidism (ICD-10 - E03.9) 11/14/2024 Unspecified hypothyroidism (ICD-10 - E03.9) 12/28/2024 Unspecified hypothyroidism (ICD-10 - E03.9) 11/15/2024 Anemia (ICD-10 - D64.9) 03/21/2024 Benign hypertension (ICD-10 - I10) 06/29/2024 Benign hypertension (ICD-10 - I10) 11/14/2024 Benign hypertension (ICD-10 - I10) 12/28/2024 Benign hypertension (ICD-10 - I10) 03/21/2024 Combined hyperlipidemia (ICD-10 - E78.2) 06/29/2024 Combined hyperlipidemia (ICD-10 - E78.2) 11/14/2024 Combined hyperlipidemia (ICD-10 - E78.2) 12/28/2024 Combined hyperlipidemia (ICD-10 - E78.2) 03/21/2024 Hypercalcemia (ICD-10 - E83.52) 06/29/2024 Hypercalcemia (ICD-10 - E83.52) 11/14/2024 Hypercalcemia (ICD-10 - E83.52) 12/28/2024 Hypercalcemia (ICD-10 - E83.52) 03/21/2024 Impotence of organic origin (ICD-10 - N52.8) 06/29/2024 Impotence of organic origin (ICD-10 - N52.8) 11/14/2024 Impotence of organic origin (ICD-10 - N52.8) 12/28/2024 Impotence of organic origin (ICD-10 - N52.8) 03/21/2024 Presence of CGMS (ICD-10 - Z410.0) 06/29/2024 Presence of CGMS (ICD-10 - Z410.0) 11/14/2024 Presence of CGMS (ICD-10 - Z410.0) 12/28/2024 Presence of CGMS (ICD-10 - Z410.0) 03/21/2024 CVA (cerebral infarction) (ICD-10 - I63.9) 06/29/2024 CVA (cerebral infarction) (ICD-10 - I63.9) 11/14/2024 CVA (cerebral infarction) (ICD-10 - I63.9) 12/28/2024 CVA (cerebral infarction) (ICD-10 - I63.9) 03/21/2024 Thrombophlebitis (ICD-10 - I80.9) 06/29/2024 Thrombophlebitis (ICD-10 - I80.9) 11/14/2024 Thrombophlebitis (ICD-10 - I80.9) 12/28/2024 Thrombophlebitis (ICD-10 - I80.9) 03/21/2024 Vitamin D deficiency, unspecified (ICD-10 - E55.9) 06/29/2024 Vitamin D deficiency, unspecified (ICD-10 - E55.9) 11/14/2024 Vitamin D deficiency, unspecified (ICD-10 - E55.9) 12/28/2024 Vitamin D deficiency, unspecified (ICD-10 - E55.9) 03/21/2024 Deficiency of other specified B group vitamins (ICD-10 - E53.8) 06/29/2024 Deficiency of other specified B group vitamins (ICD-10 - E53.8) 11/14/2024 Deficiency of other specified B group vitamins (ICD-10 - E53.8) 12/28/2024 Deficiency of other specified B group vitamins (ICD-10 - E53.8) 03/21/2024 Kidney stone (ICD-10 - N20.0) 06/29/2024 Kidney stone (ICD-10 - N20.0) 11/14/2024 Kidney stone (ICD-10 - N20.0) 12/28/2024 Kidney stone (ICD-10 - N20.0) 03/21/[address] Noam Horn dictates using Equiendo Speaking software. Laundry Presser variances may occur. Since our last visit [...] 06/29/[address] Noam alfonso dictates using Equiendo Speaking software. Laundry Presser variances may occur. Since our last visit [...] 11/14/[address] Noam alfonso dictates using Equ[employer] Speaking software. Laundry Presser variances may occur. Since our last visit [...] months for follow-up or sooner if needed 12/28/[address] Noam Bustamante ne dictates using Equiendo Speaking software. Laundry Presser variances may occur. Since our last visit [...] potential treatment for anxiety. PLAN OF TREATMENT Future Test Test Name Order Date CBC (INCLUDES DIFF/PLT) 12/05/2024 FERRITIN 12/05/2024 Next Appt Details Provider Name:Noam Horn, 03/01/2025 10:15:00 AM, [address], [address], Insurance Providers Payer Name Payer Address Payer Phone Subscriber Number Group Number Insured Name Patient Relationship to Insured Coverage Start Date Coverage End Date Medicare [address] [address] [place] [address] [id number] Roscoe Pérez Sr Self - patient is the insured Blue Cross/Blue Shield (USE THIS ONE) [address] [place] [address] [id number] Roscoe Pérez Sr Self - patient is [...] BCG treatment---dr rubio--DR GONG --- [facility]ETRU[facility] 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
--- OUTSIDE RECORDS SUMMARY | 2024-12-29 12:16 | XMS_ITS ---
Author Organization [facility] Address [address] [address] Care Team Providers Care Artificial Flowers Supervisor Name Role Phone Larry Morel Primary Care Provider Noam Gar Unavailable [phone] REASON FOR VISIT Stroke / Low Blood Sugars Encounters Encounter Location Date Provider Diagnosis [facility] [address] [address] 12/27/2024 Noam Horn Type 2 diabetes mellitus [...] once a week Next Appt Details Provider Name:Naom Horn, 03/01/2025 10:15:00 AM, [address], [address],
--- OUTSIDE RECORDS SUMMARY | 2024-12-29 12:16 | XMS_ITS | Patient Health Record ---
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) Active confirmed Problem Lumbosacral spondylosis without myelopathy (02706815) Spondylosis of lumbosacral region without myelopathy or radiculopathy (M47.817) Active confirmed Problem Enthesopathy of hip region (55703303) 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 Plan Of Treatment No Information Insurance Providers Payer Name Payer Address Payer Phone Subscriber Number Group Number Insured Name Patient Relationship to Insured Coverage Start Date Coverage End Date MEDICARE SERVICES [address] [address] [place], [place] [id number] null, null Self - patient is the insured Medications Administered Medication Instructions Date of Administration Dosage Notes Bilateral L3-S1 MBPR (lumbar facet) RF Denervation with fluoroscopy 12/07/2019 Bilateral L4/5 and L5/S1 Fac et Joint Injections with Fluoroscopy 02/09/2019 Bilateral L4/5 and L5/S1 Fac et Joint Injections with Fluoroscopy 08/03/2019 Trigger Point Injection 12/21/2018
--- OUTSIDE RECORDS SUMMARY | 2024-12-29 12:16 | XMS_ITS | Encounter Summary ---
Author Organization [facility] Address 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 Gender Identity Male 09/13/2024 10:33 AM [...] AM CDT Narrative 09/20/2007 12:10 PM [address] [address] Admit Date: 09/20/2007 GIL PÉREZ Sex: M Admit Prov: ANICETO RAMIREZ Date: 1950 Primary Care Prov: REBEKAH WOODS CMRN: [id number] [id number] [facility] Ordering Prov: N/A Accession Number: [id number] Interpretation MRI LUMBAR SPINE WITHOUT AND WITH [...] 11:11 Procedure Note Cee Pruett - 09/20/[address] [address] Admit Date: 09/20/2007 GIL PÉREZ Sex: M Admit Prov: ANICETO RAMIREZ Date:1950 Primary Care Prov: REBEKAH WOODS CMRN: [id number] Room: [facility] SSN: [id number] IMAGING SERVICES Ordering Prov: N/A Interpretation MRI LUMBAR SPINE WITHOUT AND WITH IV CONTRAST 09/20/07 History: Bilateral leg pain and numbness, prior L5-S1 surgery [id number]. Lumbar sequences were performed, but are somewhat [...] unspecified documented in this encounter Care Teams Ada Accommodation Consultant Relationship Specialty Start Date End Date Rebekah Woods MD [address] [place] [address] [place] [address] PCP - General 05/02/15 documented as of this encounter
--- OUTSIDE RECORDS SUMMARY | 2024-12-29 12:16 | XMS_ITS | Clinical Summary ---
Author Organization [facility] Address [address] [place] [address] Care Team Providers Care Scrap Carrier Name Role Phone Larry Morel MD Primary Care Provider [phone] Noam Horn MD Unavailable [phone] Hao Perez MD Unavailable [phone] Jose Alfredo Hobson MD Unavailable Rell Worthy MD Unavailable [phone] Patrick Meza MD Unavailable [phone] Allergies Active Allergy Reactions Criticality Noted Date [...] 9 Active fenofibrate micronized (LOFIBRA) 200 mg capsuleIndicati ons:hyperlipide cassie Take 1 capsule (200 mg total) by [...] 1 mg/dose (4 mg/3 mL) pen injector injectionIndica tions:type 2 diabetes mellitus Inject 1 mg under the skin once a week Takes on Wednesday 4 Active apixaban (ELIQUIS) 5 mg tablet Take 1 tablet (5 mg total) by mouth 2 (two) times a day Active lidocaine-prilo ceci cream Apply 1 g (1 Application total) [...] MAX DAILY DOSE 50 UNITS 5 Active Active Problems Problem Noted Date Diagnosed [...] (07/29/2020): Added automatically from request for surgery [id number] 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 07/29/2020 Overview (07/29/2020): Added automatically from request for surgery [id number] Encounters Date Type Department Care Team Description 11/28/2024 9:30 AM CDT Office Visit [facility] Orthopaedic Surgery [address] 6th [place] [address] [place] [address] Issa Montana MD Arthritis of carpometacarpal (CMC) joint of left thumb (Primary Dx); Arthritis, degenerative, localized, primary, hand, left 10/24/2024 - 10/24/2024 11:59 PM CDT Hospital Encounter [facility] - Imaging [phone] Discharge Disposition: Discharge to home or self care 10/04/2024 1:29 PM CDT Anesthesia Event [facility] Operating Room [facility] [place] [phone] Tonny Stafford DO Eubanks, Marianna, CRNA 10/04/2024 12:30 PM CDT - 10/04/2024 1:45 PM CDT Surgery [facility] Operating Room [address] [place] [phone] Rell Worthy MD Cystoscopy 10/04/2024 10:19 AM CDT - 10/04/2024 4:10 PM CDT Hospital Encounter [facility] Operating Room [address] [place] [address] Rell Worthy MD Gross hematuria Discharge Disposition: Discharge to home or self care 10/03/2024 12:00 PM CDT Pre-Admission Testing [facility] Pre Anesthesia Testing [address] [place] [phone] 10/02/2024 Telephone [facility] Pre Anesthesia Testing [address] [place] [phone] Marium Morse from Last 3 Months Immunizations [...] on file 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 [place] Gender Identity Not on file Sexual Orientation [...] 10/04/2025 10/04/2024 Medical Devices Implanted Type Area Manufacturing Planner Device Identifier Shelf Expiration Date Model / Serial / Lot [employer] Ar-8978-Cp Internalbrace Kit Hand Wrist Set Implant Ligament Augmentation - [id number] Implanted:Qty: 1 on 08/14/2020 by Issa Montana MD at [facility] Right: Thumb [employer] [id number] 06/16/2025 AR-8978-C P / / [id number] Small Bone [employer]ations Mcp-50 Mcp 50 Joint Finger Silicone Ii Sterile Latex Free - [id number] Implanted:Qty: 1 on 08/14/2020 by Issa Montana MD at [facility] Right: Index Finger [employer] [facility] [id number] 01/14/2023 MCP-50 / / [id number] Procedures Procedure Name Priority Date/Time Associated Diagnosis Comments LA ARTHROCENTESIS ASPIR&/INJ SMALL JT/BURSA W/O US Routine 11/28/2024 9:30 AM CDT Arthritis, degenerative, localized, primary, hand, left LA ARTHROCENTESIS ASPIR&/INJ SMALL JT/BURSA W/O US Routine 11/28/2024 9:30 AM CDT Arthritis of carpometacarpal (CMC) joint of left thumb CT BODY OUTSIDE REFERENCE Routine 10/24/2024 12:00 AM CDT POCT GLUCOSE DEVICE Routine 10/04/2024 2 :19 PM CDT SURGICAL PATHOLOGY Routine 10/04/2024 1: 54 PM CDT Gross hematuria LA AN PROCEDURE PLACEHOLDER Routine 10/04/2024 1:40 PM CDT LA AN ELECTIVE SUPRAGLOTTIC AIRWAY Routine 10/04/2024 1:40 [...] Recently Relevant to Health Maintenance Results * LA ARTHROCENTESIS ASPIR&/INJ SMALL JT/BURSA W/O US (11/28/2024 [...] MD IN CLINIC/BEDSIDE ORDERABLES Final Result * LA ARTHROCENTESIS ASPIR&/INJ SMALL JT/BURSA W/O US (11/28/2024 [...] Outside Reference (10/24/2024 12:00 AM CDT) Narrative RAD_PACS_OUTSIDE_FILM_[facility] - 12/14/2024 6:52 AM CDT This order has been auto-finalized and does not contain a result. Provider Transcribed Order IMG CT PROCEDURES Fin al Result Performing Organization Address City/[facility]/ZIP Co de Phone Number RAD_PACS_OUTSIDE_FILM_[facility] * POCT glucose (10/04/2024 2:19 PM CDT) Glucose, POC 127 70 - 199 mg/dL Comment: For Glucose values <35 mg/dl when Hematocrit is >60 mg/dl,the test may not accurately detect significant hypoglycemia,and testing in the Laboratory should be considered if clinically indicated. POC Performer [id number] [facility] Blood 10/04/2024 2:19 PM CDT 10/04/2024 2:19 PM CDT Rell Worthy MD LAB POCT ORDERABLES - DEVICE F inal Result [facility] [address] [place] [address] * Surgical pathology (10/04/2024 1:54 PM CDT) Tissue (Mass/Tumor/Lesio n) 10/04/2024 1:54 PM CDT Comment:Placed in Formalin a t end of procedure Narrative PATHOLOGY [facility] - 10/10/2024 3:15 PM CDT [address] [address] Tele: Marine Diaz MD - Gang Drill Press Operator Note to Patients: This report may contain [...] REPORT Patient Name: ROSCOE SUTHERLAND SR. Address: [address] [place] [address] Gender: M : 1950 (Age: 74) Service: Surgery Location: [facility] [place], Hospital #: [id number] Patient Type: [facility]GERY Taken: 10/04/2024 Received 10/04/2024 Reported: 10/10/2024 Physician(s): Edelmira Langford M.D. DIAGNOSIS: Urinary bladder, tumor, transurethral resection: - Invasive high-grade urothelial carcinoma - Tumor invades at least lamina propria - Suspicious for lymphovascular space invasion - Scant muscularis propria appears uninvolved by tumor as10/06/2024 12:06 Examining Pathologist: Mahad Johnson M.D. Report [...] and submitted entirely in cassette A1. [facility] MICROSCOPIC DESCRIPTION: Histologic sections contain multiple disrupted/cauterized [...] level is examined. Clerical Data Follows A; [id number], [id number], [id number] REPORT IMAGES AND/OR SCANNED DOCUMENTS ONLY VIEWABLE IN PDF FORMAT The immunohistochemical test(s) cited in this report, if any, was developed and its performance characteristics determined by [facility] Pathology Department. It has not been cleared or approved by the U.S. Food and Drug Administration. The FDA has determined that such clearance or approval is not necessary. This test is used for clinical purposes. It should not be regarded as investigational or for research. [facility] Laboratory is certified under the Clinical Laboratory [...] part or completely in the following laboratories: [facility], [address] [place] [address], [address] [place] [address]. Rell Worthy MD LAB PATHOLOGY ORDERABLES Final Result PATHOLOGY [facility] Laboratory Receiving [address] [place] [address] * LA AN ELECTIVE SUPRAGLOTTIC AIRWAY, LA AN PROCEDURE PLACEHOLDER (10/04/2024 1:40 PM CDT) Janae Woodard CRNA - 10/04/2024 1:40 PM CDT Janae Campo CRNA 10/04/2024 1:41 PM Airway Patient location: OR Urgency: elective Indications for airway management: anesthesia Difficult airway: no Staff: Supervising provider: Tonny Stafford DO Placed by: CITY ATTORNEY: Janae Campo CRNA Emergent airway documentation: Risks and benefits discussed: yes Consent obtained: yes Consent given by: patient Airway prep: Preoxygenated: yes Patient position: sniffing Mask difficulty assessment: 0 - not attempted Sedation level during airway: GA Final airway details: Final airway type: supraglottic airway Final supraglottic airway: Twining SGA size: 5 Number of attempts: 1 [...] be considered if clinically indicated. POC Performer [id number] [facility] Blood 10/04/2024 11:0 8 AM CDT 10/04/2024 11:08 AM CDT Rell Worthy MD LAB POCT ORDERABLES - DEVICE F inal Result [facility] [address] [place] [address] * eGFR (08/05/2024 6:10 AM CDT) eGFR [...] ORDERABLES Final Resul t Performing Organization Address [facility] Co de Phone Number [facility] [address] [place] [address] * (ABNORMAL) Hemoglobin A1c (08/05/2024 6:10 AM CDT) Hgb A1C 7.1(H) 4.0 - 5.6 % Estimated Average Glucose 157 mg/dL [facility] Comment: The ADA recommends reporting an estimated Average Glucose (eAG) with all Hemoglobin A1c results using the equation derived from a study of 507 normal and diabetic adults. Minority populations were underrepresented and children were not included. (Diabetes Care 31:7893-6665, 2008). The eAG is not equivalent to a fasting glucose. Blood 08/05/2024 6:10 AM CDT 08/05/2024 6:45 AM CDT Shellie Roldan MD LAB BLOOD ORDERABLES Final Resul t Performing Organization Address City/[facility]/ZIP Co de Phone Number [facility] [address] [place] [address] * Lipid panel (08/05/2024 6:10 AM CDT) [...] on 2018. Triglycerides 65 <=149 mg/dL [facility] Comment: Interpretive Data Ages < or [...] on 2018. HDL 42 >=40 mg/dL [facility] Comment: Interpretive Data Ages < or [...] 2018. LDL, calculated 56 <=129 mg/dL [facility] Comment: Interpretive Data Ages < or = 19 years Acceptable: <110 mg/dL Borderline high: 110-129 mg/dL High: >or= 130 mg/dL Ages > or = 20 years Optimal: <100 mg/dL Near optimal: 100-129 mg/dL Borderline high: 130-159 mg/dL High: >160 mg/dL Calculated using the Etienne LDL-C estimating equation. This equation was implemented on 2024. Prior to this date LDL-C was estimated using the Friedewald equation. Literature References: 1. Expert Panel on Integrated Guidelines for Cardiovascular Health and Risk Reduction in Children and Adolescents. Pediatrics 2011;128:S213 2. NCEP Expert Panel. Circulation 2004;110:227 3. Lowell iVeira et al. JONATHAN Cardiol. 2020 September 14;5(5):540-548. doi: 10.1001/jamacardio.2020.0013 Current Interpretive Data was last revised on 2024. Non-HDL Cholesterol 70 mg/dL [facility] Comment: Interpretive Data Ages < or [...] revised on 2018. Chol/HDL ratio [address] [facility] Blood 08/05/2024 6:10 AM CDT 08/05/2024 6:45 AM CDT us Shellie Roldan MD LAB BLOOD ORDERABLES Final Resul t [facility] [address] [place] [address] from Last 3 Months or Most Recently Relevant to Health Maintenance Insurance MEDICARE [employer] MEDICARE SUPPLEMENT MEDICARE [facility] MEDIC[facility] SUPPLEMENT Advance Directives For more information, please contact: [phone] * Full Code (Latest Code Status on File) Date Activated Date Inactivated Comments 08/05/2024 12:34 AM 08/06/2024 7:16 PM Care Teams Scrap Carrier Relationship Specialty Start Date End Date Larry Morel MD PCP - General Family Medicine 12/05/19 Noam Horn MD [address] [place] [address] Referring Physician Endocrinology Diabetes & Metabolism 07/29/20 Hao Perez MD [address] [place] [address] Referring Physician Ophthalmology 07/29/20 Jose Alfredo Hobson MD [address] [place] [address] Consulting Physician Radiation Oncology 12/08/24 [place] [address] [address] Consulting Physician Urology 12/08/24 Patrick Meza MD [address] [place] [address] Medical Oncologist/Hematologis t Medical Oncology 12/12/24
--- OUTSIDE RECORDS SUMMARY | 2024-12-29 12:17 | XMS_ITS | Clinical Summary ---
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 Orders Only [facility] Oncology and Hematology - [place] [address] Mikael Gomes MD Benign hypertension 12/11/2024 Orders Only [facility] Oncology and Hematology - [place] [address] [place] [phone] Mikael Gomes MD Carcinoma in situ of bladder 12/04/2024 Orders Only [facility] Oncology and Hematology - [place] [address] Mikael Gomes MD Benign hypertension 11/27/2024 Orders Only [facility] Oncology and Hematology - [place] [address] [place] [phone] Mikael Gomes MD 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 Orders Only [facility] Oncology and Hematology - [place] [address] [place] [phone] Mikael Gomes MD Benign hypertension 11/13/2024 Orders Only [facility] Oncology and Hematology - [place] [address] Mikael Gomes MD Carcinoma in situ of bladder 11/06/2024 Orders Only [facility] Oncology and Hematology [place] [address] [place] [phone] Mikael Gomes MD Benign hypertension 10/31/2024 External Device Data STL ABSTRACTION Provider, Abstract 10/30/2024 Orders Only [facility] Oncology and Hematology [place] [address] Mikael Gomes MD Carcinoma in situ of bladder 10/23/2024 Orders Only [facility] Oncology and Hematology [facility] [address] [place] [phone] Mikael Gomes MD Benign hypertension 10/16/2024 Orders Only [facility] Oncology and Hematology [facility] [address] [place] [phone] Mikael Gomes MD Carcinoma in situ of bladder 10/09/2024 Orders Only [facility] Oncology and Hematology - [place] [address] [place] [phone] Mikael Gomes MD Benign hypertension 10/05/2024 External Device Data STL ABSTRACTION Provider, Abstract 10/05/2024 External Device Data STL ABSTRACTION Provider, Abstract 10/04/2024 External Device Data STL ABSTRACTION Provider, Abstract 10/04/2024 External Device Data STL ABSTRACTION Provider, Abstract 10/03/2024 External Device Data STL ABSTRACTION Provider, Abstract 10/02/2024 Orders Only [facility] Oncology and Hematology [facility] [address] [place] [phone] Mikael Gomes MD Carcinoma in situ of [...] on file 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
--- OUTSIDE RECORDS SUMMARY | 2024-12-29 12:17 | XMS_ITS ---
Author Organization [facility] Address [address], [place] [address] Care Team Providers Care Population Health Coach Name Role Phone Larry Morel Primary Care Provider Noam Gar Unavailable [phone] REASON FOR VISIT Refill MEDICATIONS Medication SIG (Take, Route, Fr equency, Duration) Notes Start Date End Date Status Omeprazole 20 MG 1 capsule Orally Onc e a day for 90 days Active Encounters Encounter Location Date Provider Diagnosis [facility] [address] [facility] [address], [place] [address] 11/27/2024 Noam Kory Type 2 diabetes mellitus [...] Provider Name:Noam Horn, 03/01/2025 10:15:00 AM, [address], [address],
--- OUTSIDE RECORDS SUMMARY | 2024-12-29 12:17 | XMS_ITS ---
Author Organization [facility] Address [address] [address] Care Team Providers Care Sheet Metal Layout Mechanic Name Role Phone Larry Morel Primary Care Provider Noam Gar Unavailable [phone] ALLERGIES No Known Allergies REASON FOR VISIT Type II DM, hypothyroid MEDICATIONS Medication SIG (Take, Route, Frequency, Duration) Notes Start Date End Date Status Omeprazole 20 MG 1 capsule Orally Onc e a day for 90 days Active Eliquis 5 MG 1 tablet Orally Twic e a day 07/21/2023 Active TRUEplus Pen [place] 31G X 8 MM USE DIRECTED 5 [...] Sensor - as directed Active Dexcom G7 Bobbin Loose End Finder - as directed Active Vitamin B-12 1000 [...] Date Provider Diagnosis [facility] [address] [address] 12/28/2024 Noam Horn Type 2 diabetes mellitus [...] 12/28/[address] Noam Horn dictates using Xobni Speaking software. Laboratory Technologist variances may occur. Since our last visit [...] Other Dr. Noam Horn di ctates using Xobni Speaking software. Laboratory Technologist variances may occur. Since our last visit [...] Appt Details Follow Up: 03/01/25, Reason: Provider Name:Noam Horn, 03/01/2025 10:15:00 AM, [address], [address], Progress Notes * Examination Category Sub-Category Detail [...] 2023 PNEUMONIA: No COLONOSCOPY: 2007 COVID SHOT: 06/[address] Bo[address] Op[address] Kim Diabetes mellitus [...]
--- OUTSIDE RECORDS SUMMARY | 2024-12-29 12:17 | XMS_ITS | Continuity of Care Document ---
Author Organization [facility] Address [address] [place] [address] Phone Care Team Providers Care Offbearer Name Role Phone Moser OD, Oswaldo Unavailable Unavailable Procedures Procedure Date Eye Exam & Treatment Refraction Eye Exam & Treatment Refraction Eye Exam & Treatment Office/outpatient Visit, Est Office/outpatient Visit, Est Frames Deluxe [place] [facility] No Charge Glasses Check Progressive Lens, Plastic [place] [facility] Post-op Follow-up Visit Refraction Remove [...] Diagnoses Date Provider Providers Copied on Encounter [facility], [address], [place], [place], [address], [place] tel:[phone] [facility] No Information Sep-0 9-201 0 Moser OD Oswaldo. [address] , [address], [place], [place], [facility], . tel:[phone] Referring Provider: Pantera Bolivar MD, [address] [facility] [address], [place], [address]. tel:[phone] [facility], [address] [place] [address] [address], [place], [place], [address], tel:[phone] [facility] No Information 2 1-200 9 Moser OD Oswaldo. [address] , [address], [place], [place], [facility], . tel:[phone] Referring Provider: Pantera Bolivar MD, [address] [facility] [address], [place], [address]. tel:[phone] [facility], [address] [place] [address] [address], [place], [place], [address], [place] tel:[phone] [facility] No Information 4-200 8 Moser OD Oswaldo. [address] , [address], [place], [place], [facility], . tel:[phone] Office/outpat ient Visit, [facility], [address] [place] [address] [address], [place], [place], [address], [place] tel:[phone] [facility] No Information 2 1-200 8 Moser OD Oswaldo. [address] , [address], [place], [place], [facility], . tel:[phone] Office/outpat ient Visit, [facility], [address] [place] [address] [address], [place], [place], [address], [place] tel:[phone] [facility] No Information 4-200 8 Moser OD Oswaldo. [address] , [address], [place], [address], [place]. tel:[phone] [facility], [address], [place], [place], [address], [place] tel:[phone] [facility] No Information Nov-2 7-200 7 [employer] . [address] [facility], [address], [place], [place], [address], [place]. tel:[phone] Consulting Provider: Uzma Larsen, [address] [place] [address], [facility]. tel:[phone] [facility], [address], [place], [place], [address], [place] tel:[phone] [facility] No Information Nov-0 1-200 7 Moser OD Oswaldo. [address], [address], [place], [facility], [place]. tel:[phone] [facility], [address], [place], [place], [address], [place] tel:[phone] [facility] No Information Oct-0 9-200 7 [employer] . [address] [facility], [address], [place], [place], [address], [place]. tel:[phone] Referring Provider: Sherwin Rubi, [address] [place], [place] [address]ate [address], [place], [place], [facility]. tel:[phone] lting Provider: Uzma Larsen, [address] [place] [address], [address]. tel:[phone] [facility], [address], [place], [place], [address], [place] tel:[phone] [facility] No Information Oct-0 5-200 7 Lucio Courtney. [facility], [address], [place], [facility], [place]. tel:[phone] [facility], [address], [place], [place], [address], [place] tel:[phone] [facility] No Information Sep-2 1-200 7 Doisy Edward. [address] , [address], [place], [facility], . tel:[phone] [facility], [address] [place] [address] [address], [place], [place], [address], [place] tel:[phone] [facility] No Information Sep-2 1-200 7 Doisy Edward. [address] , [address], [place], [facility], [place]. tel:[phone] [facility], [address], [place], [place], [address], [place] tel:[phone] [facility] No Information Sep-1 9-200 7 Doisy Edward. [address] , [address], [place], [facility], [place]. tel:[phone] Referring Provider: Oswaldo Rubi, [facility] [address], [place], [facility]. tel:[phone] [facility], [address], [place], [place], [address], [place] tel:[phone] [facility] No Information Sep-1 2-200 7 Doisy Edward. [address] , [address], [place], [facility], [place]. tel:[phone] [facility], [address], [place], [place], [address], [place] tel:[phone] [facility] No Information Sep-1 1-200 7 Doisy Edward. [address] , [address], [place], [facility], [place]. tel:[phone] Referring Provider: Oswaldo Moser OD A, [address], [place], [address]. tel:[phone] Office/outpat ient Visit, [facility], [address], [place], [place], [address], [place] tel:[phone] [facility] No Information Sep-0 5-200 7 Lucio Courtney. [address] , [address], [place], [facility], [place]. tel:[phone] Referring Provider: Sherwin Rubi, [address], [place], [facility]. tel:[phone] [facility], [address] [place] [address] [address], [place], [place], [address], [place] tel:[phone] [facility] No Information Aug-2 3-200 7 Moser OD Oswaldo. [address] , [address], [place], [facility], [place]. tel:[phone] Referring Provider: Pantera Bolivar MD, [address] [facility] [address], [place], [address]. tel:[phone] Office/outpat ient Visit, [facility], [address] [place] [address] [address], [place], [place], [address], [place] tel:[phone] [facility] No Information Apr-0 2-200 7 Wanjonahtan Levy. [address] [facility], [address], [place], [place], [address], [place]. tel:[phone] [facility], [address] [place] [address] [address], [place], [place], [address], [place] tel:[phone] [facility] No Information Jay-0 9-200 7 Moser OD Oswaldo. [address], [address], [place], [address], [place]. tel:[phone] Family History Family Member Type Diagnosis Age [...]
[2024-12-29 13:11] LABS: Hematocrit 35.1 % (42.0-52.0); Hemoglobin 10.4 g/dL (14.0-18.0); Mean Corpuscular HGB Conc 29.6 g/dl (32-36); Mean Corpuscular Hemoglobin 27.0 pg (26-34); Mean Corpuscular Volume 91.2 fl (80-100); Platelet Count Result 334 k/mm3 (150-375); Red Blood Count 3.85 M/mm3 (4.6-6.20); White Blood Count 6.1 K/mm3 (4.5-10.0)
[2024-12-29 13:36] LABS: Alanine Aminotransferase 20 U/L (6-50); Albumin Level 4.2 g/dL (3.5-5.1); Alkaline Phosphatase 54 U/L (38-126); Anion Gap 9 mmol/L (4-12); Aspartate Amino Transferase 29 U/L (17-59); Bilirubin,Total 0.4 mg/dL (0.2-1.3); Blood Urea Nitrogen 20 mg/dL (9-20); Calcium 10.4 mg/dL (8.4-10.2); Carbon Dioxide 24 mmol/L (22-30); Chloride 104 mmol/L (98-107); Estimated Glomerular Filt Rate > 60; Glucose 160 mg/dL (65-110); Potassium 4.2 mmol/L (3.4-5.0); Sodium 137 mmol/L (137-145); Total Protein 6.7 g/dL (6.3-8.2)
[2024-12-29 14:10] LABS: Iron 34 ug/dL (49-181)
[2024-12-29 14:19] LABS: Percent Iron Saturation 7 % (20-50)
[2024-12-29 15:04] LABS: Free T4 Free Thyroxine 1.55 ng/dL (0.78-2.19)
[2024-12-29 15:04] LABS: Thyroid Stimulating Hormone 1.390 uIU/mL (0.465-4.680); Vitamin B12 872.0 pg/mL (239-931)
== END 2024-12-29 12:12 | disposition home or self-care (01) ==
LOC: ANHLAB 12:12
PROVIDERS: PCP Family Medicine; Visit Provider Nurse Practitioner Family
DX: D64.9 Anemia, unspecified (principal); Z09 Encounter for follow-up examination after completed treatment for conditions other than malignant neoplasm; K21.9 Gastro-esophageal reflux disease without esophagitis
CPT/HCPCS: 36415; 80053; 82607; 82746; 83540; 83550; 84439; 84443; 85027

== ENCOUNTER 2025-05-07 12:39 | Outpatient (CLI) | payer MEDICARE, SELFPAY ==
--- OUTSIDE RECORDS SUMMARY | 2024-11-15 17:41 | XMS_ITS ---
Author Organization [facility] Address [address] [facility] [address], [place] [address] Care Team Providers Care Lining Maker Name Role Phone Larry Morel Primary Care Provider Noam Gar Unavailable [phone] REASON FOR VISIT Lab Results Encounters Encounter Location Date Provider Diagnosis [facility] [address] [facility] [address], [place] [address] 11/15/2024 Noam Horn Anemia D64.9 ASSESSMENTS Encounter Date Diagnosis Assessment Notes Treatment Notes Treatment Clinical Notes Section Notes 11/15/2024 Anemia (ICD-10 - D64.9) PLAN OF TREATMENT Next Appt Details Provider Name:Linnea Us Darion, 06/06/2025 10:30:00 AM, [address] [facility] [address], [address],
--- OUTSIDE RECORDS SUMMARY | 2024-11-27 08:01 | XMS_ITS ---
Author Organization [facility] Address [address] [facility] [address], [place] [address] Care Team Providers Care Rn Mds Coordinator Name Role Phone Larry Morel Primary Care Provider Noam Gar Unavailable [phone] REASON FOR VISIT Refill MEDICATIONS Medication SIG (Take, Route, Fr equency, Duration) Notes Start Date End Date Status Omeprazole 20 MG 1 capsule Orally Onc e a day for 90 days Active Encounters Encounter Location Date Provider Diagnosis [facility] [address] [facility] [address], [place] [address] 11/27/2024 Noam Horn Type 2 diabetes mellitus with hyperglycemia E11.65 ASSESSMENTS Encounter Date Diagnosis Assessment Notes Treatment Notes Treatment Clinical Notes Section Notes 11/27/2024 Type 2 diabetes mellitus with hyperglycemia (ICD-10 - E11.65) PLAN OF TREATMENT Medication Medication Name Sig Start Date Stop Date Notes Omeprazole 20 MG 1 capsule Orally Once a day for 90 days Next Appt Details Provider Name:Linnea Orlando, 06/06/2025 10:30:00 AM, [address], [address],
--- OUTSIDE RECORDS SUMMARY | 2024-12-27 07:53 | XMS_ITS ---
Author Organization [facility] Address [address] [facility] [address] [place] [address] Care Team Providers Care Associate Professor Of Church Music Name Role Phone Larry Morel Primary Care Provider Noam Gar Unavailable [phone] REASON FOR VISIT Stroke / Low Blood Sugars Encounters Encounter Location Date Provider Diagnosis [facility] [address] [address] 12/27/2024 Noam Horn Type 2 diabetes mellitus with hyperglycemia E11.65 ASSESSMENTS Encounter Date Diagnosis Assessment Notes Treatment Notes Treatment Clinical Notes Section Notes 12/27/2024 Type 2 diabetes mellitus with hyperglycemia (ICD-10 - E11.65) PLAN OF TREATMENT Medication Medication Name Sig Start Date Stop Date Notes Lantus SoloStar 100 UNIT/ML inject 45 un its in the morning and 85 units in the evening under the skin daily HumaLOG KwikPen 100 UNIT/ML per moderate dose sliding scale Subcutaneous three times a day max Daily Dose 50 Units Ozempic (1 MG/DOSE) 4 MG/3ML inject 1 mg under the skin once a week Next Appt Details Provider Name:Linnea Orlando, 06/06/2025 10:30:00 AM, [address], [address],
--- OUTSIDE RECORDS SUMMARY | 2024-12-28 04:45 | XMS_ITS ---
Author Organization [facility] Address [address] [address] Care Team Providers Care Therapist Speech Name Role Phone Larry Morel Primary Care Provider Noam Gar Unavailable [phone] ALLERGIES No Known Allergies REASON FOR VISIT Type II DM, hypothyroid MEDICATIONS Medication SIG (Take, Route, Frequency, Duration) Notes Start Date End Date Status Omeprazole 20 MG 1 capsule Orally Onc e a day for 90 days Active Eliquis 5 MG 1 tablet Orally Twic e a day 07/21/2023 Active TRUEplus Pen [place] 31G X 8 MM USE DIRECTED 5 TIMES A DAY for 90 Active Rosuvastatin Calcium 10 MG 1 tablet Orally Once a day Active Fenofibrate Micronized 200 MG TAKE 1 CAPSULE BY MOUTH ONCE A DAY Active Accu-Chek SmartView - DXCODE: E11.65, ID DM) Use 1 Test Strip In Vitro Three Times a Day for 90 days Active Accu-Chek FastClix Lancets - DXCODE: E11.65, IDDM) Use 1 Lancet Subcutaneously Three Times a Day Active Atenolol 50 MG 1 tablet Orally Once a day Active metFORMIN HCl ER 500 MG 2 tablets Orally Two Times a Day Active Levothyroxine Sodium 175 MCG 1 tablet in the morning on an empty stomach Orally Once a day Active traZODone HCl 50 MG 1 tablet at bedtime as needed Orally Once a day Active Complete Multi-Vitamin Orally Once a Day Active Dexcom G7 Sensor - as directed Active Dexcom G7 Gynaecological Oncologist - as directed Active Vitamin B-12 1000 MCG 1 tablet Orally Once a day 0 01/27/2019 Active Gabapentin 300 MG 1 Capsule Orally Two Times a Day Active VITAL SIGNS BMI 26.36 kg/m2 12/28/2024 Blood pressure systolic 132 mm Hg 12/29/19 25 Blood pressure diastolic 62 mm Hg 025 Heart Rate 97 /min 12/28/2024 Height 73 in 12/28/2024 Weight 199.8 lbs 12/28/2024 Encounters Encounter Location Date Provider Diagnosis [facility] [address] [address] 12/28/2024 Noam Horn Type 2 diabetes mellitus with [...] Treatment Notes Treatment Clinical Notes Section Notes 12/28/2024 Type 2 diabetes mellitus with hyperglycemia (ICD-10 - E11.65) 12/28/2024 Peripheral neuropathy (ICD-10 - G62.9) 12/28/2024 Unspecified hypothyroidism (ICD-10 - E03.9) 12/28/2024 Benign hypertension (ICD-10 - I10) 12/28/2024 Combined 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 Noam Horn dictates using Grasswire Speaking software. Pbx Manager variances may occur. Since our last visit the patient was hospitalized with left sided cranial 4 palsy. He is overall better. He does not have any neurological deficit. He feels anxious. He has not had much of an appetite. He has lost weight. Blood pressure remained stable. We reviewed all his medications. He remains on just metformin for treatment of type 2 diabetes. We reviewed the CGM data. The average reading is 146 mg/dL with a time in range of 81%. Time above range is 18%. Time below range is 2%. We agreed to continue holding GLP-1 along with insulin at this time. He will continue all his other medications for neuropathy, hypertension or hyperlipidemia. He remains anticoagulated. He is scheduled to see me on 03/01/2025. He is meeting with his PCP tomorrow on 12/29/2024 for potential treatment for anxiety. PLAN OF TREATMENT Medication Medication Name Sig Start Date Stop Date Notes Eliquis 5 MG 1 tablet Orally Twice a day 07/21/2023 Rosuvastatin Calcium 10 MG 1 tablet Orally Once a day Fenofibrate Micronized 200 MG TAKE 1 CAP AMY BY MOUTH ONCE A DAY Atenolol 50 MG 1 tablet Orally Once a day metFORMIN HCl ER 500 MG 2 tablets Orally Two Times a Day Levothyroxine Sodium 175 MCG 1 tablet in the morning on an empty stomach Orally Once a day traZODone HCl 50 MG 1 tablet at bedtime as needed Orally Once a day Vitamin B-12 1000 MCG 1 tablet Orally Once a day 9 Gabapentin 300 MG 1 Capsule Orally Two Times a Day Treatment Notes Assessment Notes Other Dr. Noam Horn di ctates using Grasswire Speaking software. Pbx Manager variances may occur. Since our last visit the patient was hospitalized with left sided cranial 4 palsy. He is overall better. He does not have any neurological deficit. He feels anxious. He has not had much of an appetite. He has lost weight. Blood pressure remained stable. We reviewed all his medications. He remains on just metformin for treatment of type 2 diabetes. We reviewed the CGM data. The average reading is 146 mg/dL with a time in range of 81%. Time above range is 18%. Time below range is 2%. We agreed to continue holding GLP-1 along with insulin at this time. He will continue all his other medications for neuropathy, hypertension or hyperlipidemia. He remains anticoagulated. He is scheduled to see me on 03/01/2025. He is meeting with his PCP tomorrow on 12/29/2024 for potential treatment for anxiety. Next Appt Details Follow Up: 03/01/25, Reason: Provider Name:Linnea Orlando, 06/06/2025 10:30:00 AM, [address], [address], Progress Notes * Examination Category Sub-Category Detail Notes Category Not es General Examination GENERAL APPEARANCE: in no [place] distress, well developed, obese HEAD: normocephalic, atrau [...] 2023 PNEUMONIA: No COLONOSCOPY: 2007 COVID SHOT: [address] Op[address] Kim Diabetes mellitus The patient is being seen for Diabet es type II, The patient was diagnosed wi th diabetes in 2001 Complications from diabetes include cere bral vascular accident, mild proteinuria The current diabetes medicat ion(s) regimen consists of see specific dosage in current medicatio ns section The last HbA1C was :: 8.2 % (11/14/2024 ) The patient has been monitor ing their blood sugars Yes, 3-4 times a day The patient has had recent m ultiple hypoglycemic episode no The patient uses an insulin pump no The patient uses a CGMS (Con t Glucose Monitoring Device) yes- Dexcom G6 Hypothyroidism The most recent Thyr oid function tests include TSH: 2.07, TT3: 0.88, FT4:?1.28 (11/14/2024) Medication(s) include Synthroid
--- OUTSIDE RECORDS SUMMARY | 2025-02-08 05:22 | XMS_ITS ---
Author Organization [facility] Address [address] [facility] [address], [place] [address] Care Team Providers Care Director Of Entertainment Name Role Phone Larry Morel Primary Care Provider Noam Gar Unavailable [phone] REASON FOR VISIT Refill MEDICATIONS Medication SIG (Take, Route, Fr equency, Duration) Notes Start Date End Date Status metFORMIN HCl ER 500 MG 2 tablets Orally Two Times a Day for 90 days Active Encounters Encounter Location Date Provider Diagnosis [facility] [address] [facility] [address], [place] [address] 02/08/2025 Noam Horn Type 2 diabetes mellitus with hyperglycemia E11.65 ASSESSMENTS Encounter Date Diagnosis Assessment Notes Treatment Notes Treatment Clinical Notes Section Notes 02/08/2025 Type 2 diabetes mellitus with hyperglycemia (ICD-10 - E11.65) PLAN OF TREATMENT Medication Medication Name Sig Start Date Stop Date Notes metFORMIN HCl ER 500 MG 2 tablets Orally Two Times a Day for 90 days Next Appt Details Provider Name:Linnea Orlando, 06/06/2025 10:30:00 AM, [address], [address],
--- OUTSIDE RECORDS SUMMARY | 2025-02-16 04:36 | XMS_ITS ---
Author Organization [facility] Address [address] [facility] [address], [place] [address] Care Team Providers Care Orthotist Name Role Phone Larry Morel Primary Care Provider Noam Gar Unavailable [phone] REASON FOR VISIT refill MEDICATIONS Medication SIG (Take, Route, Fr equency, Duration) Notes Start Date End Date Status Omeprazole 20 MG 1 capsule Orally Onc e a day for 90 days Active Encounters Encounter Location Date Provider Diagnosis [facility] [address] [facility] [address], [place] [address] 02/16/2025 Noam Horn Type 2 diabetes mellitus with hyperglycemia E11.65 ASSESSMENTS Encounter Date Diagnosis Assessment Notes Treatment Notes Treatment Clinical Notes Section Notes 02/16/2025 Type 2 diabetes mellitus with hyperglycemia (ICD-10 - E11.65) PLAN OF TREATMENT Medication Medication Name Sig Start Date Stop Date Notes Omeprazole 20 MG 1 capsule Orally Once a day for 90 days Next Appt Details Provider Name:Radha Darion, 06/06/2025 10:30:00 AM, [address], [address],
--- OUTSIDE RECORDS SUMMARY | 2025-03-01 04:15 | XMS_ITS ---
Author Organization [facility] Address [address] [facility] [address], [place] [address] Care Team Providers Care Pre Planning Advisor Name Role Phone Larry Morel Primary Care Provider Noam Gar Unavailable [phone] ALLERGIES No Known Allergies RESULTS Component Value Reference Range Notes Hemoglobin A1c (In-House) Reviewed date:03/02/2025 03:45:55 PM Interpretation: Performing Lab: Notes/Report: Hemoglobin A1c 8.1% 4.0 - 6.0 % Ferritin, Serum Reviewed date:03/05/2025 01:43:29 PM Interpretation: Performing Lab:[facility] [place], [address] [facility], Phone - [phone], Director - PhDDepartment Of Veterans Affairs [facility] Hospital[facility]z Notes/Report: Ferritin 15 30-400 ng/mL CBC With Differential/Platel et Reviewed date:03/02/2025 03:44:25 PM Interpretation: Performing Lab:[facility] [place], [address] [facility], Phone - [phone], Director - PhDRicmariusz Notes/Report: WBC 7.9 3.4-10.8 x10E3/uL Verified by repeat analysis RBC 4.14 4.14-5.80 x10E6/uL Hemoglobin 10.6 13.0-17.7 g/dL Hematocrit 36.3 37.5-51.0 % MCV 88 79-97 fL MCH 25.6 26.6-33.0 pg MCHC 29.2 31.5-35.7 g/dL RDW 15.1 11.6-15.4 % Platelets 345 150-450 x10E3/uL Neutrophils 64 Not Estab. % Lymphs 17 Not Estab. % Monocytes 9 Not Estab. % Eos 9 Not Estab. % Basos 1 Not Estab. % Immature Cells Neutrophils (Absolute) 5.0 1.4-7.0 x10E3/uL Lymphs (Absolute) 1.3 0.7-3.1 x10E3/uL Monocytes(Absolute) 0.7 0.1-0.9 x10E3/uL Eos (Absolute) 0.7 0.0-0.4 x10E3/uL Baso (Absolute) 0.1 0.0-0.2 x10E3/uL Immature Granulocytes 0 Not Estab. % Immature Grans (Abs) 0.0 0.0-0.1 x10E3/uL NRBC Hematology Comments: Comp Metabolic Panel (14) Reviewed date:03/02/2025 03:44:10 PM Interpretation: Performing Lab:[facility] [place], [address] [facility], [place], Phone - [phone], Director - Ja Notes/Report: Glucose 241 70-99 mg/dL BUN 19 8-27 mg/dL Creatinine 0.99 0.76-1.27 mg/dL eGFR 79 >59 mL/min/1.73 BUN/Creatinine Ratio 19 10-24 Sodium 137 134-144 mmol/L Potassium 5.1 3.5-5.2 mmol/L Chloride 100 96-106 mmol/L Carbon Dioxide, Total 22 20-29 mmol/L Calcium 10.4 8.6-10.2 mg/dL Protein, Total 6.4 6.0-8.5 g/dL Albumin 4.3 3.8-4.8 g/dL Globulin, Total 2.1 1.5-4.5 g/dL Bilirubin, Total 0.3 0.0-1.2 mg/dL Alkaline Phosphatase 68 47-123 IU/L AST (SGOT) 23 0-40 IU/L ALT (SGPT) 18 0-44 IU/L REASON FOR VISIT Type II DM, hypothyroid MEDICATIONS Medication SIG (Take, Route, Frequency, Duration) Notes Start Date End Date Status Dexcom G7 Sensor - as directed Active Levothyroxine Sodium 175 MCG 1 tablet in the morning on an empty stomach Orally Once a day Active Lantus SoloStar 100 UNIT/ML 15 u Subcutaneous Once a Day at bedtime 03/01/2025 Active traZODone HCl 50 MG 1 tablet at bedtime as needed Orally Once a day Active Dexcom G7 Carpenter Apprentice - as directed Active Fenofibrate Micronized 200 MG TAKE 1 CAPSULE BY MOUTH ONCE A DAY Active Atenolol 50 MG 1 tablet Orally Once a day Active Vitamin B-12 1000 MCG 1 tablet Orally Once a day 0 01/27/2019 Active Rosuvastatin Calcium 10 MG 1 tablet Orally Once a day Active Eliquis 5 MG 1 tablet Orally Twic e a day 07/21/2023 Active Accu-Chek SmartView - DXCODE: E11.65, ID DM) Use 1 Test Strip In Vitro Three Times a Day for 90 days Active TRUEplus [place] 31G X 8 MM USE DIRECTED 5 TIMES A DAY for 90 Active metFORMIN HCl ER 500 MG 2 tablets Orally Two Times a Day Active Gabapentin 300 MG 1 Capsule Orally Two Times a Day Active Omeprazole 20 MG 1 capsule Orally Onc e a day for 90 days Active Complete Multi-Vitamin Orally Once a Day Active Accu-Chek FastClix Lancets - DXCODE: E11.65, IDDM) Use 1 Lancet Subcutaneously Three Times a Day Active HumaLOG KwikPen 100 UNIT/ML mod ssi Subcutaneous Three Times a Day 03/01/2025 Active SOCIAL HISTORY Tobacco Use: Social History Observation Description Date Details (start date - stop date) Never Smoker NA - NA Sex Assigned At : Social History Observation Description Sex Assigned At Unknown Tobacco Use/Smoking Question Answer Notes Are you a nonsmoker PROBLEMS Problem Type ICD Code Onset Dates Problem Status W/U Status Risk SNOMED Code Notes Problem GERD (gastroesop hageal reflux disease) (K21.9) Active confirmed Gastroesophagea l reflux disease (240482303) VITAL SIGNS BMI 24.80 kg/m2 03/01/2025 Blood pressure systolic 132 mm Hg 03/01/20 25 Blood pressure diastolic 58 mm Hg 025 Heart Rate 98 /min 03/01/2025 Height 73 in 03/01/2025 Weight 188.0 lbs 03/01/2025 Encounters Encounter Location Date Provider Diagnosis [facility] [address] [place] [address] 03/01/2025 Noam Horn Type 2 diabetes mellitus with hyperglycemia E11.65 ; Peripheral neuropathy G62.9 ; Unspecified hypothyroidism E03.9 ; Benign hypertension I10 ; Combined hyperlipidemia E78.2 ; Hypercalcemia E83.52 ; 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 ; Presence of CGMS 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 ; CVA (cerebral infarction) I63.9 ; Thrombophlebitis I80.9 ; Vitamin D deficiency, unspecified E55.9 ; Deficiency of other specified B group vitamins E53.8 ; Kidney stone N20.0 and GERD (gastroesophageal reflux disease) K21.9 ASSESSMENTS Encounter Date Diagnosis Assessment Notes Treatment Notes Treatment Clinical Notes Section Notes 03/01/2025 Type 2 diabetes mellitus with hyperglycemia (ICD-10 - E11.65) 03/01/2025 Peripheral neuropathy (ICD-10 - G62.9) 03/01/2025 Unspecified hypothyroidism (ICD-10 - E03.9) 03/01/2025 Benign hypertension (ICD-10 - I10) 03/01/2025 Combined hyperlipidemia (ICD-10 - E78.2) 03/01/2025 Hypercalcemia (ICD-10 - E83.52) 03/01/2025 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 Chemical Analyst variances may occur. Since our last visit the patient has followed up with his PCP and his urologist. He does have a history of bladder cancer and follows up with his urologist every 3 months. He does have a history of hematuria. He is anticoagulated with a history of thrombophlebitis. He does have type 2 diabetes and has been on metformin he has not required much insulin. We reviewed the CGM data. The average is 176 mg/dL with an estimated GMI of 7.5%. Range is 57% of the time above the range is 43%. We agreed to resume basal insulin at a low dose of 15 units at bedtime to achieve a fasting blood sugar around 120 mg/dL. The patient has hypothyroidism which is treated. He has neuropathy and is on gabapentin. He has hypertension and hyperlipidemia which is treated. He has a history of anemia and I will have been a CBC and ferritin level today. Will continue following up with all of his providers and dosing than 3 months for follow-up or sooner if needed PLAN OF TREATMENT Medication Medication Name Sig Start Date Stop Date Notes Levothyroxine Sodium 175 MCG 1 tablet in the morning on an empty stomach Orally Once a day Lantus SoloStar 100 UNIT/ML 15 u Subcuta neous Once a Day at bedtime 03/01/2025 Fenofibrate Micronized 200 MG TAKE 1 CAP AMY BY MOUTH ONCE A DAY Atenolol 50 MG 1 tablet Orally Once a day Vitamin B-12 1000 MCG 1 tablet Orally Once a day 9 Rosuvastatin Calcium 10 MG 1 tablet Orally Once a day Eliquis 5 MG 1 tablet Orally Twice a day 07/21/2023 metFORMIN HCl ER 500 MG 2 tablets Orally Two Times a Day Gabapentin 300 MG 1 Capsule Orally Two Times a Day HumaLOG KwikPen 100 UNIT/ML mod ssi Subc utaneous Three Times a Day 03/01/2025 Treatment Notes Assessment Notes Other Dr. Noam mckeon using [employer] Speaking software. Chemical Analyst variances may occur. Since our last visit the patient has followed up with his PCP and his urologist. He does have a history of bladder cancer and follows up with his urologist every 3 months. He does have a history of hematuria. He is anticoagulated with a history of thrombophlebitis. He does have type 2 diabetes and has been on metformin he has not required much insulin. We reviewed the CGM data. The average is 176 mg/dL with an estimated GMI of 7.5%. Range is 57% of the time above the range is 43%. We agreed to resume basal insulin at a low dose of 15 units at bedtime to achieve a fasting blood sugar around 120 mg/dL. The patient has hypothyroidism which is treated. He has neuropathy and is on gabapentin. He has hypertension and hyperlipidemia which is treated. He has a history of anemia and I will have been a CBC and ferritin level today. Will continue following up with all of his providers and dosing than 3 months for follow-up or sooner if needed Pending Test Test Name Order Date Thyroid Profile (In-House) (TSH3+TT3+FT4 ) 03/01/2025 Next Appt Details Follow Up: 3 Months, Reason: Provider Name:Linnea Orlando, 06/06/2025 10:30:00 AM, [address], [address], Progress Notes * Examination Category Sub-Category Detail Notes Category Not es General Examination GENERAL APPEARANCE: in no ac [place] distress, well developed, obese HEAD: normocephalic, atrau [...] nontender. There are no palpable thyroid nodules CGMS Eligibility Criteria The beneficiary requires a t herapeutic CGM yes The pt has been testinx/day with a h ome BGM over the last 60 days The pt's insulin regimen req uires frequent adjustments yes, based on therapeutic CGM results The pt was seen within the l ast 6 mos to evaluate DM control yes, and the pt meets eligibility criter ia History and Physical Notes * HPI (History [...]
--- OUTSIDE RECORDS SUMMARY | 2025-03-05 07:43 | XMS_ITS ---
Author Organization [facility] Address [address] [address] Care Team Providers Care Philanthropy Officer Name Role Phone Larry Morel Primary Care Provider Noam Gar Unavailable [phone] REASON FOR VISIT Lab Results MEDICATIONS Medication SIG (Take, Route, Frequency, Duration) Notes Start Date End Date Status Iron (Ferrous Sulfate) 325 (65 Fe) MG 1 tablet Orally Two Times a Day for 90 days 03/05/2025 Active Encounters Encounter Location Date Provider Diagnosis [facility] [address] [facility] [address], [place] [address] 03/05/2025 Noam Horn PLAN OF TREATMENT Medication Medication Name Sig Start Date Stop Date Notes Iron (Ferrous Sulfate) 325 ( 65 Fe) MG 1 tablet Orally Two Times a Day for 90 days 03/05/2025 Next Appt Details Provider Name:Linnea Orlando, 06/06/2025 10:30:00 AM, [address], [address],
--- OUTSIDE RECORDS SUMMARY | 2025-04-03 10:35 | XMS_ITS ---
Author Organization [facility] Address [address] [address] Care Team Providers Care Residential Finish Carpenter Name Role Phone Larry Morel Primary Care Provider Noam Gar Unavailable [phone] REASON FOR VISIT CGM review Encounters Encounter Location Date Provider Diagnosis [facility] 222 [facility] [address] [address] 04/03/2025 Noam Horn PLAN OF TREATMENT Next Appt Details Provider Name:Linnea Orlando, 06/06/2025 10:30:00 AM, 222 [facility] [address], [address],
--- OUTSIDE RECORDS SUMMARY | 2025-05-04 10:29 | XMS_ITS ---
Author Organization [facility] Address [address] [address] Care Team Providers Care Sample Cutter Name Role Phone Larry Morel Primary Care Provider Noam Gar Unavailable [phone] REASON FOR VISIT CGM review Encounters Encounter Location Date Provider Diagnosis [facility] 222 [facility] [address], [place] [address] 05/04/2025 Noam Horn PLAN OF TREATMENT Next Appt Details Provider Name:Linnea Orlando, 06/06/2025 10:30:00 AM, 222 [facility] [address], [address],
--- NOTE | ~2025-05-07 | XR_ITS ---
XR hip LT 2V w AP pelvis 05/07/2025 13:04 Indication: Left hip pain Procedure: AP pelvis and 3 views left hip Comparison: 11/26/2021 Findings: There is a left total hip arthroplasty. There is severe osteoarthritis of the right hip. Pelvic rings intact. Left hip prosthesis well seated. No underlying fracture or traumatic malalignment. No soft tissue abnormality. No foreign bodies. There is lower lumbar spondylosis. Impression: 1: No acute bone or joint abnormality. Reviewed, dictated and finalized at location O. STANT PROFESSOR OF RADIOLOGY Impression: 1: No acute bone or joint abnormality.
--- OUTSIDE RECORDS SUMMARY | 2025-05-07 14:07 | XMS_ITS | Clinical Summary ---
Author Organization [facility] Address [address] [place] [address] Care Team Providers Care Crimping Machine Operator Name Role Phone Larry Morel MD Primary Care Provider [phone] Emeli Allison MD Unavailable Issa Montana MD Unavailable [phone] Shamar Freire DO Unavailable Evan Loo MD Unavailable [phone] Timo Guallpa MD Unavailable Oswaldo Edmonds MD Unavailable [phone] Noam Horn MD Unavailable [phone] Allergies Active Allergy Reactions Criticality Noted Date Comments Phenazopyridine Hives Medium 04/08/2024 Patient states he is unsure if he got hives from Pyridium or Bactrim. Sulfa Antibiotics Hives Medium 09/06/2024 Sulfamethoxazole-Trimethoprim Hives Medium 2023 Unsure if caused [...] once a week. Takes on Wednesday, Wednesday 4 Active atenolol (TENORMIN) 50 MG tablet Take 1 tablet (50 mg total) by mouth daily. Active rosuvastatin (CRESTOR) 10 MG tablet Take 1 tablet (10 mg total) by mouth nightly at bedtime. Active Fenofibrate 200 MG Cap Take 1 capsule by mouth daily. Active omeprazole (PRILOSEC) 20 [...] Cyanocobalamin (VITAMIN B-12) 50 MCG Tab Active hydroCHLOROthi azide (HYDRODIURIL) 25 MG tablet Take 1 tablet (25 mg total) by mouth every morning. Active Iron, Ferrous Sulfate, 325 (65 Fe) MG Tab Take 325 mg by mouth every 12 (twelve) hours. 5 Active vitamin C (ASCORBIC ACID) 250 MG tablet Take 1 tablet (250 mg total) by mouth daily. Active tamsulosin (FLOMAX) 0.4 MG Cap Take 1 capsule (0.4 mg total) by mouth daily. 30 capsule 5 Active solifenacin (VESICARE) 5 MG tablet Take 2 tablets (10 mg total) by mouth daily. 30 tablet 5 Active HYDROcodone-ac etaminophen (NORCO) 5-325 MG tabletIndicati ons:Acute Pain < 7 Day Supply Take 1 tablet by mouth every 6 (six) hours as needed. Indications: Acute Pain < 7 Day Supply 15 tablet 5 Active hyoscyamine (LEVSIN/SL) 0.[address] 1 tablet (0.125 mg total) under the tongue every 4 (four) hours as needed. 30 tablet 5 Active Active Problems No known active problems Encounters Date Type Department Care Team Description 2025 Results Follow-Up [facility] [address] [place] [address] Tung Lopez APRN URINE BACTERIA CULTURE 03/30/2025 4:46 PM PROCESSING SUPERVISOR - 03/30/2025 7:37 PM PROCESSING SUPERVISOR Emergency [facility] [place] [address] Reed Charles PA Urinary Symptoms Discharge Disposition: Home or Self Care (Routine Discharge) 03/30/2025 Travel 03/29/2025 10:25 AM PROCESSING SUPERVISOR - 03/29/2025 12:07 PM PROCESSING SUPERVISOR Surgery [place] [address] Rell Worthy MD CYSTOSCOPY WITH BLADDER BIOPSY, RIGHT URETEROSCOPY WITH BIOPSY AND FULGURATION OF TUMOR, RIGHT RETROGRADE PYELOGRAM, RIGHT STENT PLACEMENT 03/29/2025 10:12 AM PROCESSING SUPERVISOR Anesthesia Event [facility] [place] [address] Lanette Vick MD Jarvis, Brittany L, GUEST SERVICES OFFICER 03/29/2025 8:06 AM PROCESSING SUPERVISOR - 03/29/2025 12:30 PM PROCESSING SUPERVISOR Hospital Encounter [facility] [place] [address] Rell Worthy MD Discharge Disposition: Home or Self Care (Routine Discharge) 03/29/2025 Travel 03/29/[address] [facility] [place] [address] Rell Worthy MD 03/23/2025 3:40 PM PROCESSING SUPERVISOR - 03/23/2025 11:59 PM PROCESSING SUPERVISOR Hospital Encounter [facility] [place] [address] Rell Worthy MD Discharge Disposition: Home or Self Care (Routine Discharge) 03/23/2025 Travel 03/22/[address] [facility] [place] [address] [facility] Provider Surgery instructions 03/22/2025 Travel 02/09/2025 Travel from Last 3 Months Social History [...] Sign Reading Time Taken Comments Blood Pressure 150/76 03/30/2025 4:34 PM PROCESSING SUPERVISOR Pulse 78 03/30/2025 4:34 PM PROCESSING SUPERVISOR Temperature 37.2 C (98.9 F) 03/30/2025 4:34 PM PROCESSING SUPERVISOR Respiratory Rate 20 03/30/2025 4:34 PM PROCESSING SUPERVISOR Oxygen Saturation 98% 03/30/2025 4:34 PM PROCESSING SUPERVISOR Inhaled Oxygen Concentration - - Weight 86.6 kg (191 lb) 03/30/2025 4:34 PM PROCESSING SUPERVISOR Height 185.4 cm (6' 1) 03/30/2025 4:34 PM PROCESSING SUPERVISOR Body Mass Index 25.2 03/30/2025 4:34 PM PROCESSING SUPERVISOR Plan of Treatment Health Maintenance Due Date Last Done Comments Hepatitis C 1968 DTaP, Tdap and Td Vaccines (1 - Tdap) 1969 Annual Medicare Wellness Visit 2014 Zoster Vaccines (3 of 3) 08/19/2022 06/24/2022, 12/0 07/2011 RSV Immunization or 60+ Years (1 - 1-dose 75+ series) 2024 COVID-19 Vaccine (3 - season) 2025 05/23/2021, 07/08/2020 Influenza Adult Completed 03/14/2025, 07/15, 06/24/2022, Additional history exists Pneumococcal Vaccine: 50+ Years Completed 03/14/2025 Hepatitis A Vaccines Aged Out No long er eligible based on patient's age to complete this topic Meningococcal B Vaccine Aged Out No l onger eligible based on patient's age to complete this topic Meningococcal Vaccine Aged Out No kassandra mara eligible based on patient's age to complete this topic RSV Immunizations Under 20 Months Aged Out No longer eligible based on patient's age to complete this topic Medical Devices Implanted Type Area Shipping Clerk Packing Device Identifier Shelf Expiration Date Model / Serial / Lot Stent Ureteral 6fr 26cm Pigtl Crv Taper Tip Bldr Mrk - [id number] Implanted:Qty: 1 on 03/29/2025 by Rell Worthy MD at [facility] Stent Food Runner [id number] 09/05/2027 [id number] / / [id number] Procedures Procedure Name Priority Date/Time Associated Diagnosis Comments URINE BACTERIA CULTURE STAT 03/30/2025 6:23 PM PROCESSING SUPERVISOR URINALYSIS STAT 03/30/2025 6:23 PM PROCESSING SUPERVISOR XR ABD KUB STAT 03/30/2025 5:27 PM PROCESSING SUPERVISOR POCT GLUCOSE - DOCKED DEVICE Routine 03/29/2025 12:18 PM PROCESSING SUPERVISOR PROCEDURE GENERIC 03/29/2025 11: 51 AM PROCESSING SUPERVISOR SURG XR RETROGRD UROGRAPHY Routine 03/29/2025 11:13 AM PROCESSING SUPERVISOR CYSTO/URETERO/PYEL OSCOPY W/BX 03/29/2025 10:12 AM PROCESSING SUPERVISOR 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, CARCINOMA INSITU OF BLADDER C67.2, D09.0, N39.0 Case Notes RESCHED BY FAX 03/13/2025 LCS SCHED BY FAX 02/09/2025 LCS PHONE ASSESS Special Needs PER FAX ORDER, DR NEEDS 45 MINUTES POCT GLUCOSE - DOCKED DEVICE Routine 03/29/2025 8:56 AM PROCESSING SUPERVISOR PATHOLOGY Routine 03/29/2025 12:00 AM PROCESSING SUPERVISOR CYTOLOGY GENERIC Routine 03/29/2025 12:0 0 AM PROCESSING SUPERVISOR URINE BACTERIA CULTURE Routine 03/23/2025 3:44 PM PROCESSING SUPERVISOR Malignant neoplasm of urinary bladder, unspecified site ([facility]) from Last 3 Months Results * URINE BACTERIA CULTURE (03/30/2025 6:23 PM PROCESSING SUPERVISOR) SPEC DESCRIPTION URINE CLEAN CATCH 03/30/2025 7:08 PM PROCESSING SUPERVISOR [facility] SPECIAL REQUESTS NO SPECIAL REQUEST 03/30/2025 7:08 PM PROCESSING SUPERVISOR [facility] CULTURE RESULT NO GROWTH 2 DAYS 2025 6:41 AM PROCESSING SUPERVISOR [facility] URINE URINE SPECIMEN OBTAINED BY CLEAN CATCH PROCEDURE / Unknown 03/30/2025 6:23 PM PROCESSING SUPERVISOR 03/31/2025 2:43 AM PROCESSING SUPERVISOR us Reed TORO MICROBIOLOGY - GENERAL ISAI VERAS Final Result [facility] [address] [place] [address], [place] [phone] * (ABNORMAL) URINALYSIS (03/30/2025 6:23 PM PROCESSING SUPERVISOR) SPECIMEN TYPE URINE CLEAN CATCH 03/30/2025 6:23 PM [facility] COLOR (U) LIGHT ORANGE 03/30/2025 6:49 PM [facility] TRANSPARENCY TURBID 03/30/2025 6:49 PM [facility] SPECIFIC GRAVITY (U) 1.026 1.001 - 1.030 03/30/2025 6:49 PM [facility] U PH 6.0 5.0 - 9.0 03/30/2025 6:49 PM [facility] LEUKOCYTES (U) 75(A) NEGATIVE 03/30/2025 6:49 PM [facility] NITRITES NEGATIVE NEGATIVE 03/30/2025 6:49 PM [facility] PROTEIN RANDOM (U) 200(H) <30 MG/DL 03/30/2025 6:49 PM [facility] GLUCOSE (U) >1000(A) NORMAL MG/DL 03/30/2025 6:49 PM [facility] KETONES MG/DL (U) NEGATIVE NEGATIVE MG/DL 03/30/2025 6:49 PM [facility] UROBILINOGEN NORMAL NORMAL MG/DL 03/30/2025 6:49 PM [facility] BILIRUBIN (U) NEGATIVE NEGATIVE MG/DL 03/30/2025 6:49 PM [facility] BLOOD (U) 3+(A) NEGATIVE 03/30/2025 6:49 PM [facility] WBC/HPF >100(H) <6 /HPF 03/30/2025 6:50 PM [facility] RBC/HPF >100(H) <6 /HPF 03/30/2025 6:50 PM [facility] URINE URINE SPECIMEN OBTAINED BY CLEAN CATCH PROCEDURE / Unknown 03/30/2025 6:23 PM PROCESSING SUPERVISOR Reed TORO URINE ORDERABLES Final Resu lt [facility] [address] [place] [address], * XR ABD KUB (03/30/2025 5:27 PM PROCESSING SUPERVISOR) Anatomical Region Laterality Modality Abdomen Radiographic Funmilayo ging 03/30/2025 5:49 PM PROCESSING SUPERVISOR Impressions 03/30/2025 5:53 PM PROCESSING SUPERVISOR IMPRESSION: 1. Right ureteral stent appears in expected position. 2. Right upper quadrant calcifications, possible gallstones. Referred By: Interpreted By: Pa Hill MD, 03/30/2025 5:49 PM Narrative 03/30/2025 5:53 PM PROCESSING SUPERVISOR [address] [address] EXAMINATION: XR ABD KUB HISTORY: Stent placement DATE: 03/30/2025 5:27 PM COMPARISON: None TECHNIQUE: Supine AP view of the abdomen FINDINGS: Right ureteral stent is present, appearing appropriately positioned with the proximal tip coiled in the expected position of the right kidney and the distal tip coiled in the expected position of the bladder. Nonobstructive gas pattern. There are 3 round right upper quadrant calcifications suspicious for cholelithiasis. Left hip arthroplasty hardware is noted. Lumbar spondylosis. No acute osseous abnormality. Procedure Note Pa Hill MD - 03/30/[address] [address] EXAMINATION: XR ABD KUB HISTORY: Stent placement DATE: 03/30/2025 5:27 PM COMPARISON: None TECHNIQUE: Supine AP view of the abdomen FINDINGS: Right ureteral stent is present, appearing appropriatelypositioned with the proximal tip coiled in the expected position of theright kidney and the distal tip coiled in the expected position of thebladder. Nonobstructive gas pattern. There are 3 round right upperquadrant calcifications suspicious for cholelithiasis. Left hiparthroplasty hardware is noted. Lumbar spondylosis. No acute osseousabnormality. IMPRESSION: 1. Right ureteral stent appears in expected position. 2. Right upper quadrant calcifications, possible gallstones. Referred By: Interpreted By: Pa Hill MD, 03/30/2025 5:49 PM Vangie Robles INFRASTRUCTURE TECH GENERAL IMAGING Final Resul t * (ABNORMAL) POCT glucose (03/29/2025 12:18 PM PROCESSING SUPERVISOR) Only the most recent of2 resultswithin the time period is included. GLUCOSE POC 290(H) 70 - 99 mg/dL 03/29/2025 1:00 PM PROCESSING SUPERVISOR [facility] 03/29/2025 12:1 8 PM PROCESSING SUPERVISOR us Rell Worthy MD POCT ORDERABLES - DEVICE Final Result [facility] [address] [place] [address], [place] [phone] * PROCEDURE GENERIC (03/29/2025 11:51 AM PROCESSING SUPERVISOR) us Rell Worthy MD [facility] Edited Result - Final * SURG XR RETROGRD UROGRAPHY (03/29/2025 11:13 AM PROCESSING SUPERVISOR) Anatomical Region Laterality Modality Abdomen Radiographic Funmilayo ging 03/30/2025 5:21 AM PROCESSING SUPERVISOR Impressions 03/30/2025 5:22 AM PROCESSING SUPERVISOR Impression: Fluoroscopic views of right retrograde urography for stent placement obtained for intraoperative control purposes and evaluated postoperatively. Radiologist not present for procedure. Referred By: Interpreted By: Tan Arguelles MD, 03/30/2025 5:21 AM Narrative 03/30/2025 5:22 AM PROCESSING SUPERVISOR [place] [address] Intraoperative fluoroscopic views of the retrograde urography Reason for Exam: CYSTOSCOPY WITH RIGHT URETEROSCOPY, RIGHT RETROGRADE PYELOGRAM, POSSIBLE RIGHT STENT PLACEMENT Dose: Total Dose Area Product: 0.8611 (Gycm2). Technique: Intraoperative fluoroscopy control images obtained. Findings: Submitted images demonstrate a right ureteral stent in position Procedure Note Tan Arguelles MD - 03/30/2025 [place] [address] Intraoperative fluoroscopic views of the retrograde urography Reason for Exam: CYSTOSCOPY WITH RIGHT URETEROSCOPY, RIGHT RETROGRADEPYELOGRAM, POSSIBLE RIGHT STENT PLACEMENT Dose: Total Dose Area Product: 0.8611 (Gycm2). Technique: Intraoperative fluoroscopy control images obtained. Findings: Submitted images demonstrate a right ureteral stent inposition Impression: Fluoroscopic views of right retrograde urography for stent placementobtained for intraoperative control purposes and evaluatedpostoperatively. Radiologist not present for procedure. Referred By: Interpreted By: Tan Arguelles MD, 03/30/2025 5:21 AM Rell Worthy MD IMAGES ONLY Final Result * CYTOLOGY GENERIC (03/29/2025 12:00 AM PROCESSING SUPERVISOR) CYTOLOGY OTHER [facility] Department of Laboratory Medicine [address] [place] [address] , extension [phone] Pathology Report Non-gynecologic Cytology Report Name: ROSCOE SUTHERLAND SR. 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 See also [id number] FINAL DIAGNOSIS: A. Urine, right ureter, cystoscopic: -Satisfactory for evaluation -Positive for malignant cells -High-grade urothelial carcinoma B. Renal washing, right, cystoscopic: -Satisfactory for evaluation -Positive for malignant cells -High-grade urothelial carcinoma Diagnosis Comment: Reviewed concurrently with . Gross Description: A. Right Ureter Urine SPECIMEN RECEIVED: 1 cc's of yellow fluid SLIDES PREPARED: 1 ThinPrep, all slides were microscopically examined by a pathologist. STAINS: Papanicolaou B. Right Renal Pelvis Washing SPECIMEN RECEIVED: 3 cc's of pink fluid SLIDES PREPARED: 1 ThinPrep, all slides were microscopically examined by a pathologist. STAINS: Papanicolaou Initial cytologic screening, interpretation, and sign out were performed at [facility], [address] [place] [address]. Electronically Signed Out AHMET FONSECA MD [facility] URINE (Urine, Cystoscopic) 03/29/2025 10:42 AM PROCESSING SUPERVISOR us Rell Worthy MD PATHOLOGY/CYTOLOGY ORDERABLES F inal Result [facility] [address] [place] [address], [phone] * Pathology (03/29/2025 12:00 AM PROCESSING SUPERVISOR) PATHOLOGY [facility] Department of Laboratory Medicine [address] [place] [address] , extension [phone] Pathology Report Surgical Pathology Report Name: ROSCOE SUTHERLAND SR. Specimen #: [id number] Age: 11 1950 (Age: 74) Location: [facility] Sex: M Procedure Date: 03/29/2025 Hospital #: [id number] Date Received: 03/30/2025 Date Reported: 04/04/2025 Provider: RELL WORTHY MD Source: A: Right ureteropelvic junction, biopsy B: Bladder, biopsy Clinical History: Cancer of lateral wall of urinary bladder/carcinoma in situ of bladder. FINAL DIAGNOSIS: A. Right ureteropelvic junction, biopsy: -Superficial fragments of urothelial carcinoma in situ -Scant lamina propria present and uninvolved -Muscularis propria is not identified B. Bladder, biopsy: -Urothelial carcinoma in situ -Lamina propria is present and uninvolved -Muscularis propria is not identified Diagnosis Comment: Part A demonstrates superficial fragments of urothelial carcinoma in situ; only scant lamina propria is identified and is uninvolved. Reviewed concurrently with [id number]. Immunohistochemical stains performed as follows: Block A1- AE1/AE3: Positive in the neoplastic cells CK20: Essentially negative in the neoplastic cells AMACR, p53, Ki67: Increased expression in the neoplastic cells CD45: Highlights focal inflammatory cells Block B1- CK20: Positive in the neoplastic cells AMACR, Ki67: Increased expression in the neoplastic cells p53: Wild-type expression IC: MELANIA, CEF Gross Description: A. Received in formalin, labeled with a patient label and as right ureteropelvic junction biopsy are 3 pieces of delicate white-tomlinson tissue ranging from less than 0.1 to 0.1 cm. The specimen is entirely submitted in cassette A1. B. Received in formalin, labeled with a patient label and as bladder biopsy is a 0.1 cm piece of white-tomlinson tissue. The specimen is entirely submitted in cassette B1. Gross examination (when applicable) was performed at [facility], [address] [place] [address]. This case was interpreted and signed out at [facility], [address] [place] [address]. All immunohistochemical and histochemical tests were developed by and performed at [facility], [address] [place] [address]. All tests reported here have not been cleared or approved by the U.S. Food and Drug Administration (FDA). This laboratory is regulated under CLIA as qualified to perform high-complexity testing. These tests are used for clinical purposes. They should not be regarded as investigational or for research. Positive and negative controls show appropriate reactivity. Electronically Signed Out AHMET FONSECA MD [facility] BIOPSY STRUCTURE OF RIGHT URETER / Unknown 03/29/2025 10:51 AM PROCESSING SUPERVISOR Rell Worthy MD PATHOLOGY/CYTOLOGY ORDERABLES F inal Result Performing Organization Address [facility] Co de Phone Number [facility] [address] [place] [address], [place] [phone] * URINE BACTERIA CULTURE (03/23/2025 3:44 PM PROCESSING SUPERVISOR) SPEC DESCRIPTION URINE CLEAN CATCH 03/23/2025 3:44 PM PROCESSING SUPERVISOR [facility] SPECIAL REQUESTS NO SPECIAL REQUEST 03/23/2025 3:44 PM PROCESSING SUPERVISOR [facility] CULTURE RESULT NO GROWTH 2 DAYS 03/25/2025 8:18 AM PROCESSING SUPERVISOR [facility] URINE SPECIMEN OBTAINED BY CLEAN CATCH PROCEDURE / Unknown 03/23/2025 3:44 PM PROCESSING SUPERVISOR 03/23/2025 3:45 PM PROCESSING SUPERVISOR us Rell Worthy MD MICROBIOLOGY - GENERAL ORDERABL ES Final Result Performing Organization Address City/[facility]/ZIP Co de Phone Number [facility] [address] [place] [address], [place] [phone] from Last 3 Months Insurance MEDICARE [facility] Care Teams Crimping Machine Operator Relationship Specialty Start Date End Date Larry Morel MD [address] [address] PCP - General FAMILY PRACTICE 09/23/23 Emeli Allison MD [address] [facility] [place] [address] Physician NEUROLOGICAL SURGERY 09/23/23 Issa Montana MD [address] [facility] [address] [place] [address] HAND SURGERY 09/23/23 Shamar Freire DO [address] [address] [address] [place] [address] CARDIOLOGY 09/23/23 Evan Loo MD [address] [place], [place] [address] NEUROLOGY 09/11/24 Timo Guallpa MD [address] [facility] [address] [address] NEUROLOGY 09/11/24 Oswaldo Edmonds MD [address] [facility] [address] [address] NEUROLOGY 09/11/24 Noam Horn MD [address] [facility] [address] [place] [address] ENDOCRINOLOGY 03/22/25
--- OUTSIDE RECORDS SUMMARY | 2025-05-07 14:07 | XMS_ITS | Encounter Summary ---
Author Organization [facility] Address 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 Gender Identity Male 09/13/2024 10:33 AM CDT [...] CREATININE POC 1.0 0.6 - 1.3 mg/dL [facility] Capillary blood specimen (specimen) 09/02/2007 7:18 AM CDT 09/02/2007 7:18 AM CDT us Aniceto Ramirez DO POINT OF CARE TESTING Final R esult [facility] [address] [place] [address] documented in this encounter Visit Diagnoses Diagnosis Backache, unspecified documented in this encounter Care Teams Beer Cooler Relationship Specialty Start Date End Date Pantera Bolivar MD [address] [place] [address] [address] [place] [phone] PCP - General 05/02/15 documented as of this encounter
--- OUTSIDE RECORDS SUMMARY | 2025-05-07 14:07 | XMS_ITS | Encounter Summary ---
Author Organization [facility] Address 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 Gender Identity Male 09/13/2024 10:33 AM [...] Organization Address [facility] de Phone Number INTERFACE SYSTEM Refer to clinic/hospital department * (ABNORMAL) GLUCOSE, CSF (08/31/2006 10:25 AM CDT) GLUCOSE, CSF 95(H) 40 - 70 mg/dL INTERFACE SYSTEM 08/31/2006 10:2 5 AM CDT Cornelius Orlando MD BODY FLUIDS AND STOOLS Edited Performing Organization Address [facility] de Phone Number INTERFACE SYSTEM Refer to [...] Organization Address [facility] Phone Number INTERFACE SYSTEM Refer to clinic/hospital department documented in this encounter Visit Diagnoses Diagnosis Spinal stenosis, lumbar region, without neurogenic claudication- Primary documented in this encounter Care Teams Burlap Worker Relationship Specialty Start Date End Date Pantera Bolivar MD [address] [place] [phone] PCP - General 05/02/15 documented as of this encounter
--- OUTSIDE RECORDS SUMMARY | 2025-05-07 14:07 | XMS_ITS | Encounter Summary ---
Author Organization [facility] Address [facility] [place] [address] Care Team Providers Care Dealer Development Manager Name Role Phone Larry Morel MD Primary Care Provider [phone] Emeli Allison MD Unavailable [phone] Issa Montana MD Unavailable [phone] Shamar Freire DO Unavailable Evan Loo MD Unavailable [phone] Timo Guallpa MD Unavailable Oswaldo Edmonds MD Unavailable [phone] Noam Horn MD Unavailable [phone] Encounter Details Date Type Department Care Team (Late st Contact Info) Description 2025 Results Follow-Up [facility] Care [address] [place] [address] Tung Lopez, CHIEF TECHNICAL OFFICER [address] [place], [place] [id number] URINE BACTERIA CULTURE Social History Tobacco Use Types Packs/Day Years Used Date Smoking Tobacco: Former Cigarettes 2 12 1 969 - 1980 Smokeless Tobacco: Never Alcohol Use Standard Drinks/Week Comments Yes 1.7 (1 standard drink = 0.6 oz p ure alcohol) Sex and Gender Information Value Date Recorded Sex Assigned at Male 09/14/2024 12:08 PM CDT Legal Sex Male 10:00 AM CDT Gender Identity Not on file Sexual Orientation Not on file documented as of this encounter Progress Notes * Tung Lopez APRN - 2025 9:52 AM CST No growth at 2 days final result no additional action required [facility] documented in this encounter Plan of Treatment Not on file documented as of this encounter Visit Diagnoses Not on filedocumented in this encounter Care Teams Dealer Development Manager Relationship Specialty Start Date End Date Larry Morel MD [address] [address] PCP - General FAMILY PRACTICE 09/23/23 Emeli Allison MD [address] [place] [address] Physician NEUROLOGICAL SURGERY 09/23/23 Issa Montana MD [address] [facility] [address] HAND SURGERY 09/23/23 Shamar Freire DO [address] [address] [address] [place] [address] CARDIOLOGY 09/23/23 Evan Loo MD [address] [address] NEUROLOGY 09/11/24 Timo Guallpa MD [address] [facility] [address] [place] [address] NEUROLOGY 09/11/24 Oswaldo Edmonds MD [address] [place] [address] NEUROLOGY 09/11/24 Noam Horn MD [address] [facility] [address] [place] [address] ENDOCRINOLOGY 03/22/25 documented as of this encounter
--- OUTSIDE RECORDS SUMMARY | 2025-05-07 14:07 | XMS_ITS | Encounter Summary ---
Author Organization [facility] Address [address] [place] [address] Care Team Providers Care Car Starter Name Role Phone Pantera Bolivar MD Primary Care Provider [phone] Encounter Details Date Type Department Care Team (Late st Contact Info) Description 09/14/2000 Outpatient Historical [facility] [address] [facility] 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
--- OUTSIDE RECORDS SUMMARY | 2025-05-07 14:07 | XMS_ITS | Encounter Summary ---
Author Organization [facility] Address [facility] [place] [address] Care Team Providers Care Cost Control Supervisor Name Role Phone Larry Morel MD Primary Care Provider [phone] Emeli Allison MD Unavailable Issa Montana MD Unavailable [phone] Shamar Freire DO Unavailable Evan Loo MD Unavailable [phone] Timo Guallpa MD Unavailable Oswaldo Edmonds MD Unavailable [phone] Noam Horn MD Unavailable [phone] Encounter Details Date Type Department Care Team (Late st Contact Info) Description 03/29/2025 Prep for Procedure [facility] Laboratory [address] [place], [place] [id number] Rell Worthy MD [address] [facility] [address] [place] [address] Social History Tobacco Use Types Packs/Day Years [...] this encounter Results * URINE BACTERIA CULTURE (03/23/2025 3:44 PM FIREWORKS ASSEMBLER) SPEC DESCRIPTION URINE CLEAN CATCH 03/23/2025 3:44 PM FIREWORKS ASSEMBLER [facility] SPECIAL REQUESTS NO SPECIAL REQUEST 03/23/2025 3:44 PM FIREWORKS ASSEMBLER [facility] CULTURE RESULT NO GROWTH 2 DAYS 03/25/2025 8:18 AM FIREWORKS ASSEMBLER [facility] URINE SPECIMEN OBTAINED BY CLEAN CATCH PROCEDURE / Unknown 03/23/2025 3:44 PM FIREWORKS ASSEMBLER 03/23/2025 3:45 PM FIREWORKS ASSEMBLER Rell Worthy MD MICROBIOLOGY - GENERAL ORDERABL ES Final Result [facility] [address] [place] [address], documented in this encounter Visit Diagnoses Diagnosis Carcinoma in situ of bladder- Primary Malignant neoplasm of urinary bladder, unspecified site (CMS/HCC HHS/HCC) documented in this encounter Care Teams Cost Control Supervisor Relationship Specialty Start Date End Date Larry Morel MD [address] [place] [address] PCP - General FAMILY PRACTICE 09/23/23 Emeli Allison MD [address] [place] [address] Physician NEUROLOGICAL SURGERY 09/23/23 Issa Montana MD [address] [facility] [address] [place] [address] HAND SURGERY 09/23/23 Shamar Freire DO [address] [place] [address] CARDIOLOGY 09/23/23 Evan Loo MD [address] [place] [address] NEUROLOGY 09/11/24 Timo Guallpa MD [address] [facility] [address] [place] [address] NEUROLOGY 09/11/24 Oswaldo Edmonds MD [address] [facility] [address] [place] [address] NEUROLOGY 09/11/24 Noam Horn MD [address] [facility] [address] [place] [address] ENDOCRINOLOGY 03/22/25 documented as of this encounter
--- OUTSIDE RECORDS SUMMARY | 2025-05-07 14:08 | XMS_ITS | Patient Health Record ---
Author Organization [facility] Address [address] 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 Problem Lumbosacral spondylosis without myelopathy (19683960) Spondylosis of lumbosacral region without myelopathy or radiculopathy (M47.817) Active confirmed Problem Enthesopathy of hip region (32650707) 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 Plan Of Treatment No Information Insurance Providers Payer Name Payer Address Payer Phone Subscriber Number Group Number Insured Name Patient Relationship to Insured Coverage Start Date Coverage End Date MEDICARE SERVICES [address] [address] [place], [place] [id number] null, null Self - patient is the insured Medications Administered Medication Instructions Date of Administration Dosage Notes Bilateral L3-S1 MBPR (lumbar facet) RF Denervation with fluoroscopy 12/07/2019 Bilateral L4/5 and L5/S1 Fac et Joint Injections with Fluoroscopy 02/09/2019 Bilateral L4/5 and L5/S1 Fac et Joint Injections with Fluoroscopy 08/03/2019 Trigger Point Injection 12/21/2018
--- OUTSIDE RECORDS SUMMARY | 2025-05-07 14:08 | XMS_ITS | Encounter Summary ---
Author Organization [facility] Address [facility] [place] [address] Care Team Providers Care Metal Casket Maker Name Role Phone Larry Morel MD Primary Care Provider [phone] Emeli Allison MD Unavailable [phone] Issa Montana MD Unavailable [phone] Shamar Freire DO Unavailable Evan Loo MD Unavailable [phone] Timo Guallpa MD Unavailable Oswaldo Edmonds MD Unavailable [phone] Noam Horn MD Unavailable [phone] Encounter Details Date Type Department Care Team (Late st Contact Info) Description 10/26/2024 CONWEAVER Message [facility] [place] [address] [facility] Provider Preparing for surgery 11/02/24 Social [...] on filedocumented in this encounter Care Teams Metal Casket Maker Relationship Specialty Start Date End Date Larry Morel MD [address] [place] [address] PCP - General FAMILY PRACTICE 09/23/23 Emeli Allison MD [address] [place] [address] Physician NEUROLOGICAL SURGERY 09/23/23 Issa Montana MD [address] [facility] [address] [place] [address] HAND SURGERY 09/23/23 Shamar Freire DO [address] [facility] [address] [place] [address] CARDIOLOGY 09/23/23 Evan Loo MD [address] [facility] [address] [place] [address] NEUROLOGY 09/11/24 Timo Guallpa MD [address] [address] NEUROLOGY 09/11/24 Oswaldo Edmonds MD [address] [facility] [address] [address] NEUROLOGY 09/11/24 Noam Horn MD [address] [facility] [address] [place] [address] ENDOCRINOLOGY 11/6/25 documented as of this encounter
--- OUTSIDE RECORDS SUMMARY | 2025-05-07 14:08 | XMS_ITS | Encounter Summary ---
Author Organization [facility] Address 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 Gender Identity Male 09/13/2024 10:33 AM [...] AM CDT Narrative 09/20/2007 12:10 PM CDT [address] [address] Admit Date: 09/20/2007 GIL PÉREZ Sex: M Admit Prov: ANICETO RAMIREZ Date: 1950 Primary Care Prov: REBKEAH WOODS CMRN: [id number] Room: [facility] SSN: [id number] IMAGING SERVICES Ordering Prov: N/A Accession Number: [id number] Interpretation MRI LUMBAR SPINE WITHOUT AND WITH [...] 11:11 Procedure Note Cee Pruett - 09/20/[address] [address] Admit Date: 09/20/2007 GIL PÉREZ Sex: M Admit Prov: ANICETO RAMIREZ Date:1950 Primary Care Prov: REBEKAH WOODS CMRN: [id number] Room: [facility] SSN: [id number] IMAGING SERVICES Ordering Prov: N/A Interpretation MRI LUMBAR SPINE WITHOUT AND WITH IV CONTRAST 09/20/07 History: Bilateral leg pain and numbness, prior L5-S1 surgery [id number]. Lumbar sequences were performed, but are somewhat [...] unspecified documented in this encounter Care Teams Gas Scrubber Operator Relationship Specialty Start Date End Date Rebekah Woods MD [address] [place] [address] PCP - General 05/02/15 documented as of this encounter
--- OUTSIDE RECORDS SUMMARY | 2025-05-07 14:08 | XMS_ITS | Encounter Summary ---
Author Organization [facility] Address [facility] [place] [address] Care Team Providers Care Videotape Recording Engineer Name Role Phone Larry Morel MD Primary Care Provider [phone] Emeli Allison MD Unavailable Issa Montana MD Unavailable [phone] Shamar Freire DO Unavailable Evan Loo MD Unavailable [phone] Timo Guallpa MD Unavailable Oswaldo Edmonds MD Unavailable [phone] Noam Horn MD Unavailable [phone] Encounter Details Date Type Department Care Team (Late st Contact Info) Description 11/02/2024 Prep for Procedure [facility] Laboratory [address] [place], [place] [id number] Rell Worthy MD [address] [facility] [address] [place] [address] Social History Tobacco Use Types [...] URINE CLEAN CATCH 10/26/2024 11:16 AM CDT [facility] SPECIAL REQUESTS NO SPECIAL REQUEST 10/26/2024 11:16 AM CDT [facility] CULTURE RESULT NO GROWTH 2 DAYS 10/28/2024 8:49 AM CDT [facility] URINE SPECIMEN OBTAINED BY CLEAN CATCH PROCEDURE / Unknown 10/26/2024 11:20 AM CDT 10/26/2024 11:22 AM CDT Rell Worthy MD MICROBIOLOGY - GENERAL ORDERABL ES Final Result [facility] [address] [place] [address], documented in this encounter Visit Diagnoses Diagnosis Bladder cancer (CMS/HCC HHS/HCC)- Primary Malignant neoplasm of bladder, part unspecified documented in this encounter Care Teams Videotape Recording Engineer Relationship Specialty Start Date End Date Larry Morel MD [address] [address] PCP - General FAMILY PRACTICE 09/23/23 Emeli Allison MD [address] [place] [address] Physician NEUROLOGICAL SURGERY 09/23/23 Issa Montana MD [address] [facility] [place] [address] HAND SURGERY 09/23/23 Shamar Freire DO [address] [place] [address] CARDIOLOGY 09/23/23 Evan Loo MD [address] [place] [address] NEUROLOGY 09/11/24 Timo Guallpa MD [address] [facility] [address] [place] [address] NEUROLOGY 09/11/24 Oswaldo Edmonds MD [address] [facility] [address] [place] [address] NEUROLOGY 09/11/24 Noam Horn MD [address] [facility] [address] [place] [address] ENDOCRINOLOGY 03/22/25 documented as of this encounter
--- OUTSIDE RECORDS SUMMARY | 2025-05-07 14:09 | XMS_ITS | Encounter Summary ---
Author Organization [facility] Address [facility] [place] [address] Care Team Providers Care Instrument Maintenance Supervisor Name Role Phone Larry Morel MD Primary Care Provider [phone] Emeli Allison MD Unavailable [phone] Issa Montana MD Unavailable [phone] Shamar Freire DO Unavailable Evan Loo MD Unavailable [phone] Timo Guallpa MD Unavailable Oswaldo Edmonds MD Unavailable [phone] Noam Horn MD Unavailable [phone] Encounter Details Date Type Department Care Team (Late st Contact Info) Description 03/22/2025 Survmetrics Message [facility] [place] [address] Jaya[facility] Provider Surgery instructions Social History Tobacco Use Types Packs/Day Years Used Date Smoking Tobacco: Former Cigarettes 2 12 969 - 1980 Smokeless Tobacco: Never Alcohol [...] on filedocumented in this encounter Care Teams Instrument Maintenance Supervisor Relationship Specialty Start Date End Date Larry Morel MD [address] [place] [address] PCP - General FAMILY PRACTICE 09/23/23 Emeli Allison MD [address] [facility] [address] [facility] [place] [address] Physician NEUROLOGICAL SURGERY 09/23/23 Issa Montana MD [address] [place] [address] HAND SURGERY 09/23/23 Shamar Freire DO [address] [facility] [address] [place] [address] CARDIOLOGY 09/23/23 Evan Loo MD [address] [address] NEUROLOGY 09/11/24 Timo Guallpa MD [address] [address] NEUROLOGY 09/11/24 Oswaldo Edmonds MD [address] [facility] [address], [place] [address] NEUROLOGY 09/11/24 Noam Horn MD [address] [facility] [address] [place] [address] ENDOCRINOLOGY 03/22/25 documented as of this encounter
--- OUTSIDE RECORDS SUMMARY | 2025-05-07 14:09 | XMS_ITS | Clinical Summary ---
Author Organization [facility] Address [address] [place] [address] Phone Care Team Providers Care Director Of Player Personnel Name Role Phone Larry Morel MD Primary Care Provider [phone] Allergies No known active allergies Medications atenolol [...] solution pen-injector 06/09/2021 Active TRUEplus 5-Bevel Pen [place] 31G X 8 MM misc USE FIVE [...] on file Legal Sex Male 8:47 AM [facility] Gender Identity Not on file [...] 1999 Influenza Vaccine (#1) 2025 Insurance MEDICARE [facility] Social Strategy 1 CROSS Care Teams Director Of Player Personnel Relationship Specialty Start Date End Date Larry Morel MD [address] [place] [phone] PCP - General Family Medicine 04/28/21
--- OUTSIDE RECORDS SUMMARY | 2025-05-07 14:09 | XMS_ITS | Clinical Summary ---
Author Organization [facility] Address [address] [place] [address] Care Team Providers Care Institutional Aide Name Role Phone Larry Morel MD Primary Care Provider [phone] Noam Horn MD Unavailable [phone] Hao Preez MD Unavailable [phone] Jose Alfredo Hobson MD Unavailable Rell Worthy MD Unavailable [phone] Patrick Meza MD Unavailable [phone] Allergies Active Allergy Reactions Criticality Noted Date Comments Sulfamethoxazole-Trimethoprim Hives Medium 2023 Unsure if caused by bactrim or pyridium Phenazopyridine Hives Medium 04/08/2024 Patient states he is unsure if he got hives from Pyridium or Bactrim. Sulfa (Sulfonamide Antibiotics) Hives Medium 09/06/2024 Trimethoprim Rash Medium 12/16/2024 and hives Medications traMADol (ULTRAM) 50 mg tablet Take 1 tablet (50 mg total) by mouth every 6 (six) hours as needed for pain 02/06/2014 Active omeprazole (PriLOSEC) 20 mg capsule Take 1 capsule (20 mg total) by mouth every morning 1 07/20/2018 Active gabapentin (NEURONTIN) 300 mg capsule Take 1 capsule (300 mg total) by mouth 2 (two) times a day 0 07/01/2018 Active fenofibrate micronized (LOFIBRA) 200 mg capsuleIndicati ons:hyperlipide cassie Take 1 capsule (200 mg total) by mouth every morning 0 07/01/2018 Active atenolol (TENORMIN) 50 mg tablet Take 1 tablet (50 mg total) by mouth every morning 1 06/27/2018 Active cyanocobalamin (Vitamin B-12) 1,000 mcg tablet Take 1 tablet (1,000 mcg total) by mouth every morning 03/09/2020 Active multivitamin capsule Take 1 capsule by mouth every morning Active levothyroxine (SYNTHROID) 175 mcg tablet Take 1 tablet (175 mcg total) by mouth every morning 04/07/2021 Active metFORMIN XR (GLUCOPHAGE XR) 500 mg 24 hr tablet Take 2 tablets (1,000 mg total) by mouth 2 (two) times a day 08/24/2022 Active Ozempic 1 mg/dose (4 mg/3 mL) pen injector injectionIndica tions:type 2 diabetes mellitus Inject 1 mg under the skin once a week Takes on Wednesday08/06/2023 Active apixaban (ELIQUIS) 5 mg tablet Take 1 tablet (5 mg total) by mouth 2 (two) times a day Active aspirin 81 mg enteric coated tablet Take 1 tablet (81 mg total) by mouth every morning Active rosuvastatin (CRESTOR) 20 mg tablet Take 1 tablet (20 mg total) by mouth nightly 30 tablet 08/06/2024 08/07/19 26 Active LANTUS 100 unit/mL (3 mL) pen for injection INJECT 45 UNITS UNDER THE SKIN IN THE MORNING AND 85 UNITS IN THE EVENING DAILY 11/21/2024 Active HumaLOG 100 unit/mL pen for injection INJECT PER MODERATE DOSE SLIDING SCALE THREE TIMES DAILY. MAX DAILY DOSE 50 UNITS 11/20/2024 Active ALPRAZolam (XANAX) 0.25 mg tablet Take by mouth 3 (three) times a day as needed 01/02/2025 Active PARoxetine (PAXIL) 10 mg tablet Take 1 tablet (10 mg total) by mouth daily 01/02/2025 Active traZODone (DESYREL) 50 mg tablet daily Active blood glucose diagnostic (Accu-Chek SmartView Test Strip) strip every 8 hours Act kofi lancets (Accu-Chek Fastclix Lancet Drum) misc every 8 hours Activ e mecobalamin, vitamin B12, 1,000 mcg tablet,disinteg rating Take 1,000 mcg by mouth 09/16/2020 Active celecoxib (CeleBREX) 200 mg capsule Take 1 capsule (200 mg total) by mouth 2 (two) times a day 03/23/2025 Active Active Problems Problem Noted Date Diagnosed Date Acute deep vein thrombosis (DVT) of right lower extremity 01/23/2025 Acute UTI 01/23/2025 Arthritis 01/23/2025 Overview (01/23/2025): Phreesia 10/30/2021 B12 deficiency 01/23/2025 BPH (benign prostatic hyperplasia) 01/23/2025 CAD (coronary artery disease) 01/23/2025 Overview (01/23/2025): Phreesia 10/30/2021 Cellulitis of arm, left 01/23/2025 Coagulase-negative staphylococcal infection 01/2025 Deep vein thrombosis (DVT) 01/23/2025 Overview (01/23/2025): Phreesia 10/30/2021 Urinary urgency 01/23/2025 Urge incontinence 01/23/2025 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 Thoracic aortic aneurysm (TAA) 01/23/2025 Right foot drop 01/23/2025 Poor vision 01/23/2025 Overview (01/23/2025): 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 Overactive bladder 01/23/2025 Obstructive sleep apnea 01/23/2025 Overview (01/23/2025): Phreesia 10/30/2021 Obesity 01/23/2025 Nocturia 01/23/2025 Neuropathic pain 01/23/2025 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 01/23/2025 Lymphadenopathy 01/23/2025 Lumbar stenosis with neurogenic claudication 01/2025 Lumbar muscle pain 01/23/2025 Lumbar post-laminectomy syndrome 01/23/2025 Left carotid artery occlusion 01/23/2025 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 Overview (01/23/2025): 07/2023 - cytology with atypical cells and possible polyoma virus CTU 08/19/23 - no mass or lesion per report 09/2023 - No cancer on bladder and prostatic urethra biopsy 10/2023 - FISH positive 12/2023 - 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 Increased frequency of urination 01/23/2025 Impacted cerumen of both ears 01/23/2025 Hypothyroidism 01/23/2025 Overview (01/23/2025): Phreesia 10/30/2021 Hypertriglyceridemia 01/23/2025 Hypercalcemia 01/23/2025 High urine white blood cell count 01/23/2025 Pyuria 01/23/2025 Gait abnormality 01/23/2025 Falls frequently 01/23/2025 Gastroesophageal reflux disease without esophagi tis 01/23/2025 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 01/23/2025 Dysuria 01/23/2025 Dysphagia 01/23/2025 Double vision 01/23/2025 Hypoglycemia associated with diabetes 01/23/2025 Gross hematuria 09/29/2024 TIA (transient ischemic attack) 08/04/2024 Gluteal tendinitis 06/27/2024 Pulmonary embolism 07/09/2023 Osteoarthritis of knee 04/21/2022 Pain in joint of right hip 03/25/2022 Essential hypertension 06/16/2021 Calculus of kidney 06/16/2021 Chronic pain syndrome 03/25/2021 Enthesopathy of hip region 03/25/2021 Lumbosacral spondylosis without myelopathy 03/25 Spinal enthesopathy 03/25/2021 Osteoarthritis of carpometac arpal (CMC) joint of right thumb 07/29/2020 Overview (07/29/2020): Added automatically from request for surgery [id number] 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 07/29/2020 Overview (07/29/2020): Added automatically from request for surgery [id number] Encounters Date Type Department Care Team Description 03/27/2025 9:30 AM 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 Office Visit [facility] Medicine Orthopaedic Surgery [address] [place] [address] [place] [address] Issa Montana MD Arthritis of carpometacarpal (CMC) joint of left thumb (Primary Dx); Arthritis, degenerative, localized, primary, hand, left 02/20/2025 Telephone [facility] Ophthalmology [address] [place] [address] Mike Andrews MD PhD Medical Records Request 02/08/2025 12:30 PM CDT Office Visit [facility] Medicine Ophthalmology [address]th [place] [phone] Mike Andrews MD PhD Right trochlear nerve palsy (Primary Dx); Diplopia 02/05/2025 Telephone [facility] Ophthalmology [address] [place] [phone] Mike Andrews MD PhD from Last 3 Months Immunizations Immunization Administration [...] stones Arthritis Arthritis Hyperlipidemia Hyperlipidemia Diabetes mellitus Diabetes Hypertension Hypertension Disorder of thyroid Thyroid [...] Family history of arthritis - (Added by Conv) Cancer Father Family history of malignant [...] drink = 0.6 oz pur e alcohol) PHQ-2 Answer Date Recorded PHQ-2 Total Score 0 08/05/2024 AUDIT-C Answer Date Recorded Q1: How often do you have a drink containing alc ohol? Monthly or less 02/08/2025 Q2: How many drinks containi ng alcohol do you have on a typical day when you are drinking? 1 or 2 02/08/2025 Q3: How often do you have si x or more drinks on one occasion? Monthly 02/08/2025 Personal Safety Answer Date Recorded Have you ever been in or are you currently in a harmful physical or emotional relationship or is someone making you feel afraid or unsafe? 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 Gender Identity Not on file Sexual Orientation Not on file Last Filed Vital Signs Vital Sign Reading Time Taken Comments Blood Pressure 107/64 01/12/2025 1:54 PM CDT Pulse 75 01/12/2025 1:54 PM CDT Temperature 36.9 C (98.4 F) 01/12/2025 1:54 PM CDT Respiratory Rate 20 01/12/2025 1:54 PM CDT Oxygen Saturation 98% 01/12/2025 1:54 PM CDT Inhaled Oxygen Concentration - - Weight 90.3 kg (199 lb) 01/23/2025 9:14 AM CDT Height 185.4 cm (6' 1) 01/23/2025 9:14 AM CDT Body Mass Index 26.25 01/23/2025 9:14 AM CDT Plan of Treatment Health Maintenance Due Date Last Done Comments Albumin Creatinine Ratio, Urine 1950 Hepatitis C Screening 1950 Dilated Eye Exam 1950 Foot Exam 1950 DTaP/Tdap/Td Vaccine (1 - Tdap) 1960 Hepatitis B Screening 1967 Pneumococcal vaccine 65+ (1 of 2 - PCV) 1968 Abdominal Aortic Aneurysm (A AA) Screen 2014 Well Visit 65+ 2014 Zoster Vaccine (3 of 3) 08/19/2022 06/24/2022, 12/03 /2012 Influenza Vaccine (#1) 2025 , 06/24/2022, 02/06/2014 Hemoglobin A1C 02/05/2025 08/05/2024 Depression Screening 08/04/2025 08/04/2024 Lipid Panel 08/05/2025 08/05/2024 eGFR 08/05/2025 08/05/2024, 08/04/2024 Fall Risk Assessment 10/04/2025 10/04/2024 Medical Devices Implanted Type Area Bioengineer Device Identifier Shelf Expiration Date Model / Serial / Lot [employer] Ar-8978-Cp Internalbrace Kit Hand Wrist Set Implant Ligament Augmentation - [id number] Implanted:Qty: 1 on 08/14/2020 by Issa Montana MD at [facility] Medicine Right: Thumb [employer] [id number] 06/16/2025 AR-8978-C P / / [id number] Small [employer] Mcp-50 Mcp 50 Joint Finger Silicone Ii Sterile Latex Free - [id number] Implanted:Qty: 1 on 08/14/2020 by Issa Montana MD at [facility] Right: Index Finger [employer] [facility] [id number] 01/14/2023 MCP-50 / / [id number] Procedures Procedure Name Priority Date/Time Associated Diagnosis Comments [place] ARTHROCENTESIS ASPIR&/INJ SMALL JT/BURSA W/O US Routine 03/27/2025 9:30 AM 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 Arthritis, degenerative, localized, primary, hand, left [place] ARTHROCENTESIS ASPIR&/INJ SMALL JT/BURSA W/O US Routine 03/27/2025 9:30 AM 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 Arthritis of carpometacarpal (CMC) joint of left thumb EGFR Routine 08/05/2024 6:10 AM CDT HEMOGLOBIN A1C Routine 08/05/2024 6:10 AM CDT LIPID PANEL Routine 08/05/2024 6:10 AM CDT from Last 3 Months or Most Recently Relevant to Health Maintenance Results * [place] ARTHROCENTESIS ASPIR&/INJ SMALL JT/BURSA W/O US (03/27/2025 9:30 AM 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) Issa Martinez MD - 03/27/2025 9:30 AM 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 Issa Montana MD 03/27/2025 4:44 PM Small Joint Injection: L index MCP [...] MD IN CLINIC/BEDSIDE ORDERABLES Final Result * [place] ARTHROCENTESIS ASPIR&/INJ SMALL JT/BURSA W/O US (03/27/2025 9:30 AM 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) Issa Martinez MD - 03/27/2025 9:30 AM 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 Issa Montana MD 03/27/2025 4:44 PM Small Joint Injection: L thumb CMC [...] MD IN CLINIC/BEDSIDE ORDERABLES Final Result * eGFR (08/05/2024 6:10 AM CDT) eGFR [...] ORDERABLES Final Resul t Performing Organization Address [facility] Co de Phone Number [facility] [address] [place] [address] * (ABNORMAL) Hemoglobin A1c (08/05/2024 6:10 AM CDT) Hgb A1C 7.1(H) 4.0 - 5.6 % Estimated Average Glucose 157 mg/dL [facility] Comment: The ADA recommends reporting an estimated Average Glucose (eAG) with all Hemoglobin A1c results using the equation derived from a study of 507 normal and diabetic adults. Minority populations were underrepresented and children were not included. (Diabetes Care 31:4105-7034, 2008). The eAG is not equivalent to a fasting glucose. Blood 08/05/2024 6:10 AM CDT 08/05/2024 6:45 AM CDT us Shellie Roldan MD LAB BLOOD ORDERABLES Final Resul t Performing Organization Address City/[facility] Co de Phone Number [facility] [address] Department [employer] [place], [place] [id number] * Lipid panel (08/05/2024 6:10 AM CDT) [...] [address] Department [place] [address] from Last 3 Months or Most Recently Relevant to Health Maintenance Insurance MEDICARE BLUE CROSS MEDICARE SUPPLEMENT MEDICARE ON LICENSE OF [facility] MEDICARE [facility] MEDICARE SUPPLEMENT Advance Directives For more information, please contact: [phone] * Full Code (Latest Code Status on File) Date Activated Date Inactivated Comments 08/05/2024 12:34 AM 08/06/2024 7:16 PM Care Teams Institutional Aide Relationship Specialty Start Date End Date Larry Morel MD PCP - General Family Medicine 12/05/19 Noam Horn MD [address] [place] [address] Referring Physician Endocrinology Diabetes & Metabolism 07/29/20 Hao Perez MD [address] [place] [address] Referring Physician Ophthalmology 07/29/20 Jose Alfredo Hobson MD [address] [place] [address] Consulting Physician Radiation Oncology 12/08/24 [place] [address] [address] Consulting Physician Urology 12/08/24 Patrick Meza MD [address] [facility] [place] [address] Medical Oncologist/Hematologis t Medical Oncology 12/12/24
--- OUTSIDE RECORDS SUMMARY | 2025-05-07 14:09 | XMS_ITS | Patient Health Record ---
Author Organization [facility] Address [address] [address] Care Team Providers Care Padder Name Role Phone Larry Morel Primary Care Provider Noam Gar Unavailable [phone] ALLERGIES No Known Allergies RESULTS Component Value Reference Range Notes Hemoglobin A1c Reviewed date:06/30/2024 12:24:52 PM Interpretation: Performing Lab:[facility] [place], [address] [facility], Phone - [phone], Director - [facility] Notes/Report: Hemoglobin A1c 7.6 4.8-5.6 % . Prediabetes: 5.7 - 6.4 Diabetes: >6.4 Glycemic control for adults with diabetes: <7.0 Comp Metabolic Panel (14) Reviewed date:06/30/2024 12:25:24 PM Interpretation: Performing Lab:[facility] [place], [address] [facility], Phone - [phone], Director - [facility] Notes/Report: Glucose 89 70-99 mg/dL BUN 15 [...] et Reviewed date:11/15/2024 11:41:41 PM Interpretation: Performing Lab:[facility], [address] [employer] [facility], [place], Phone - [phone], Director - Ja Notes/Report: WBC 7.2 3.4-10.8 [...] (14) Reviewed date:11/15/2024 03:28:23 PM Interpretation: Performing Lab:[facility], [address] [facility], Phone - [phone], Director - Ja Notes/Report: Glucose 198 70-99 [...] ng/mL FT4 1.28 0.62 - 1.58 ng/dL Hemoglobin A1c (In-House) Reviewed date:03/02/2025 03:45:55 PM Interpretation: Performing Lab: Notes/Report: Hemoglobin A1c 8.1% 4.0 - 6.0 % Ferritin, Serum Reviewed date:03/05/2025 01:43:29 PM Interpretation: Performing Lab:[facility] [place], [address] [facility], [place], Phone - [phone], Director - Blancated Notes/Report: Ferritin 15 30-400 ng/mL CBC With Differential/Platel et Reviewed date:03/02/2025 03:44:25 PM Interpretation: Performing [facility], [address] [facility], Phone - [phone], Director - Ja Notes/Report: WBC 7.9 3.4-10.8 x10E3/uL Verified by [...] (14) Reviewed date:03/02/2025 03:44:10 PM Interpretation: Performing [facility], [address] [facility], [place], Phone - [phone], Director - Ja Notes/Report: Glucose 241 70-99 [...] Duration) Notes Start Date End Date Status Levothyroxine Sodium 175 MCG 1 tablet in the morning on an empty stomach Orally Once a day for 90 days Active traZODone HCl 50 MG 1 tablet at bedtime as needed Orally Once a day Active [employer] G7 Enterprise Architect - as directed Active Fenofibrate Micronized 200 MG TAKE 1 CAPSULE BY MOUTH ONCE A DAY Active Atenolol 50 MG 1 tablet Orally Once a day Active [employer] G7 Sensor - as directed Active Complete Multi-Vitamin Orally Once a Day Active Accu-Chek FastClix Lancets - DXCODE: E11.65, IDDM) Use 1 Lancet Subcutaneously Three Times a Day Active Lantus SoloStar 100 UNIT/ML 15 u Subcutaneous Once a Day at bedtime 03/01/2025 Active Accu-Chek SmartView - DXCODE: E11.65, ID DM) Use 1 Test Strip In Vitro Three Times a Day for 90 days Active HumaLOG KwikPen 100 UNIT/ML mod ssi Subcutaneous Three Times a Day 03/01/2025 Active TRUEplus [place] 31G X 8 MM USE DIRECTED 5 TIMES A DAY for 90 Active metFORMIN HCl ER 500 MG 2 tablets Orally Two Times a Day Active Gabapentin 300 MG 1 Capsule Orally Two Times a Day Active Omeprazole 20 MG 1 capsule Orally Onc e a day for 90 days Active Iron (Ferrous Sulfate) 325 (65 Fe) MG 1 tablet Orally Two Times a Day for 90 days 03/05/2025 Active Vitamin B-12 1000 MCG 1 tablet Orally Once a day 0 01/27/2019 Active Rosuvastatin Calcium 10 MG 1 tablet Orally Once a day Active Eliquis 5 MG 1 tablet Orally Twic e a day 07/21/2023 Active IMMUNIZATIONS Vaccine Route Administration Date Status Comme nts Influenza IM Intramuscular 02/08/2020 Administered Pt received Influenza HD Lot #[id number] EXP November 13 2020 SOCIAL HISTORY Tobacco Use: Social History Observation Description Date Details (start date - stop date) Never Smoker NA - NA Sex Assigned At : Social History Observation Description Sex Assigned At Unknown Tobacco Use/Smoking Question Answer Notes Are you a nonsmoker PROBLEMS Problem Type ICD Code Onset Dates Problem Status W/U Status Risk SNOMED Code Notes Problem GERD (gastroesophageal reflux disease) (K21.9) Active confirmed Gastroesophagea l reflux disease (767931864) Problem Peripheral neuropathy (G62.9) Active confirmed Periphera l neuropathy (578727268) Problem CVA (cerebral infarction) (I63.9) Active confirmed Cerebrov ascular accident (094596140) Problem Benign hypertension (I10) Active confirmed 38150233 Problem Vitamin D deficiency, unspecified (E55.9) Active confirmed Vitamin D deficiency (65186792) Problem Type 2 diabetes mellitus with hyperglycemia (E11.65) Active confirmed Hyperglycemia d ue to type 2 diabetes mellitus (738318150795910) Problem Kidney stone (N20.0) Active confirmed Kidney stone (44352251) Problem Hypercalcemia (E83.52) Active confirmed Hypercalcemia (89096948) Problem 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) Active confirmed Mixed hyperlipidemia (084158557) Problem Unspecified hypothyroidism (E03.9) Active confirmed 78075371 Problem 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) Active confirmed 193839418 Problem Thrombophlebitis (I80.9) Active confirmed Thrombophlebiti s (47527244) Problem Deficiency of other specified B group vitamins (E53.8) Active confirmed Vitamin B deficiency (42860854) Problem 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) Active confirmed Glucose product (122043692) VITAL SIGNS Heart Rate 98 /min 03/01/2025 Blood pressure diastolic 58 mm Hg 03/01/2025 Height 73 in 03/01/2025 Blood pressure systolic 132 mm Hg 03/01/2025 Weight 188.0 lbs 03/01/2025 BMI 24.80 kg/m2 03/01/2025 Encounters Encounter Location Date Provider Diagnosis [facility] [address] [place] [address] 06/29/2024 Noam Oisydneyine Type 2 diabetes mellitus with hyperglycemia E11.65 [...] and Kidney stone N20.0 [facility] [address] [place] [address] 10/05/2024 Noam Oisydneyine [facility] [address] [place] [address] 11/14/2024 Noam Oisydneyine Type 2 diabetes mellitus with hyperglycemia E11.65 [...] and Kidney stone N20.0 [facility] [address] [place] [address] 03/01/2025 Noam Steveine Type 2 diabetes mellitus with hyperglycemia E11.65 [...] N20.0 and GERD (gastroesophageal reflux disease) K21.9 [facility] [address] [place] [address] 12/28/2024 Noam Oisydneyine Type 2 diabetes mellitus with hyperglycemia E11.65 [...] Kidney stone N20.0 [facility] [address] [address] 05/22/2024 Noam Oiknine Type 2 diabetes mellitus with hyperglycemia E11.65 [facility] [address] [address] 06/29/2024 Noam Oiknine [facility] [address] [address] 08/02/2024 Noam Oiknine [facility] [address] [address] 08/08/2024 Noam Oiknine Type 2 diabetes mellitus with hyperglycemia E11.65 [facility] [address] [address] 09/06/2024 Noam Oiknine Type 2 diabetes mellitus with hyperglycemia E11.65 [facility] [address] [address] 09/06/2024 Noam Oiknine Type 2 diabetes mellitus with hyperglycemia E11.65 [facility] [address] [address] 10/19/2024 Noam Oiknine Unspecified hypothyroidism E03.9 [facility] [address] [address] 11/15/2024 Noam Oiknine Anemia D64.9 [facility] [address] [address] 11/27/2024 Noam Oiknine Type 2 diabetes mellitus with hyperglycemia E11.65 [facility] [address] [address] 12/27/2024 Noam Oiknine Type 2 diabetes mellitus with hyperglycemia E11.65 [facility] [address] [address] 02/08/2025 Noam Oiknine Type 2 diabetes mellitus with hyperglycemia E11.65 [facility] [address] [address] 02/16/2025 Noam Oiknine Type 2 diabetes mellitus with hyperglycemia E11.65 [facility] [address] [address] 03/05/2025 Noam Oiknine [facility] [address] [address] 04/03/2025 Noam Oiknine [facility] [address] [address] 05/04/2025 Noam Oiknine ASSESSMENTS Encounter Date Diagnosis Assessment Notes Treatment Notes Treatment Clinical Notes Section Notes 06/29/2024 Type 2 diabetes mellitus with hyperglycemia (ICD-10 - E11.65) 06/29/2024 Peripheral neuropathy (ICD-10 - G62.9) 11/14/2024 Type 2 diabetes mellitus with hyperglycemia (ICD-10 - E11.65) 11/14/2024 Peripheral neuropathy (ICD-10 - G62.9) 03/01/2025 Type 2 diabetes mellitus with hyperglycemia (ICD-10 - E11.65) 03/01/2025 Peripheral neuropathy (ICD-10 - G62.9) 12/28/2024 Type 2 diabetes mellitus with hyperglycemia (ICD-10 - E11.65) 12/28/2024 Peripheral neuropathy (ICD-10 - G62.9) 05/22/2024 Type 2 diabetes mellitus with hyperglycemia [...] diabetes mellitus with hyperglycemia (ICD-10 - E11.65) 02/08/2025 Type 2 diabetes mellitus with hyperglycemia (ICD-10 - E11.65) 02/16/2025 Type 2 diabetes mellitus with hyperglycemia (ICD-10 - E11.65) 06/29/2024 Unspecified hypothyroidism (ICD-10 - E03.9) 11/14/2024 Unspecified hypothyroidism (ICD-10 - E03.9) 03/01/2025 Unspecified hypothyroidism (ICD-10 - E03.9) 12/28/2024 Unspecified hypothyroidism (ICD-10 - E03.9) 11/15/2024 Anemia (ICD-10 - D64.9) 06/29/2024 Benign hypertension (ICD-10 - I10) 11/14/2024 Benign hypertension (ICD-10 - I10) 03/01/2025 Benign hypertension (ICD-10 - I10) 12/28/2024 Benign hypertension (ICD-10 - I10) 06/29/2024 Combined hyperlipidemia (ICD-10 - E78.2) 11/14/2024 Combined hyperlipidemia (ICD-10 - E78.2) 03/01/2025 Combined hyperlipidemia (ICD-10 - E78.2) 12/28/2024 Combined hyperlipidemia (ICD-10 - E78.2) 06/29/2024 Hypercalcemia (ICD-10 - E83.52) 11/14/2024 Hypercalcemia (ICD-10 - E83.52) 03/01/2025 Hypercalcemia (ICD-10 - E83.52) 12/28/2024 Hypercalcemia (ICD-10 - E83.52) 06/29/2024 Impotence of organic origin (ICD-10 - N52.8) 11/14/2024 Impotence of organic origin (ICD-10 - N52.8) 03/01/2025 Impotence of organic origin (ICD-10 - N52.8) 12/28/2024 Impotence of organic origin (ICD-10 - N52.8) 06/29/2024 Presence of CGMS (ICD-10 - Z410.0) 11/14/2024 Presence of CGMS (ICD-10 - Z410.0) 03/01/2025 Presence of CGMS (ICD-10 - Z410.0) 12/28/2024 Presence of CGMS (ICD-10 - Z410.0) 06/29/2024 CVA (cerebral infarction) (ICD-10 - I63.9) 11/14/2024 CVA (cerebral infarction) (ICD-10 - I63.9) 03/01/2025 CVA (cerebral infarction) (ICD-10 - I63.9) 12/28/2024 CVA (cerebral infarction) (ICD-10 - I63.9) 06/29/2024 Thrombophlebitis (ICD-10 - I80.9) 11/14/2024 Thrombophlebitis (ICD-10 - I80.9) 03/01/2025 Thrombophlebitis (ICD-10 - I80.9) 12/28/2024 Thrombophlebitis (ICD-10 - I80.9) 06/29/2024 Vitamin D deficiency, unspecified (ICD-10 - E55.9) 11/14/2024 Vitamin D deficiency, unspecified (ICD-10 - E55.9) 03/01/2025 Vitamin D deficiency, unspecified (ICD-10 - E55.9) 12/28/2024 Vitamin D deficiency, unspecified (ICD-10 - E55.9) 06/29/2024 Deficiency of other specified B group vitamins (ICD-10 - E53.8) 11/14/2024 Deficiency of other specified B group vitamins (ICD-10 - E53.8) 03/01/2025 Deficiency of other specified B group vitamins (ICD-10 - E53.8) 12/28/2024 Deficiency of other specified B group vitamins (ICD-10 - E53.8) 06/29/2024 Kidney stone (ICD-10 - N20.0) 11/14/2024 Kidney stone (ICD-10 - N20.0) 03/01/2025 Kidney stone (ICD-10 - N20.0) 12/28/2024 Kidney stone (ICD-10 - N20.0) 03/01/2025 GERD (gastroesophageal reflux disease) (ICD-10 - K21.9) 06/29/[address] Noam alfonso dictates using [employer] software. Retail Worker variances may occur. Since our last [...] 11/14/[address] Noam alfonso dictates using [employer] software. Retail Worker variances may occur. Since our last [...] sooner if needed 12/28/[address] Noam alfonso dictates using [employer] software. Retail Worker variances may occur. Since our last [...] on 12/29/2024 for potential treatment for anxiety. 03/01/[address] Noam alfonso dictates using [employer] software. Retail Worker variances may occur. Since our last [...] or sooner if needed PLAN OF TREATMENT Pending Test Test Name Order Date Thyroid Profile (In-House) (TSH3+TT3+FT4 ) 03/01/2025 Next Appt Details Provider Name:Linnea Orlando, 06/06/2025 10:30:00 AM, [address] [place] [address], [phone], Insurance Providers Payer Name Payer Address Payer Phone Subscriber Number Group Number Insured Name Patient Relationship to Insured Coverage Start Date Coverage End Date Medicare [address] [address] [place] [address] [id number] Roscoe Pérez Sr Self - patient is the insured Blue Cross/Blue Shield LOCAL (USE THIS ONE) [address] [place] [address] [id number] Roscoe Pérez Sr Self - patient is [...]
--- OUTSIDE RECORDS SUMMARY | 2025-05-07 14:09 | XMS_ITS ---
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 Past Treatment and Therapy Plans No past plan information found. Lifetime Dose Tracking * Chemical Lifetime Dose Automatic Entry Manual Entr y DLP 1,947 mGycm 1,947 mGycm 0 mGycm
--- OUTSIDE RECORDS SUMMARY | 2025-05-07 14:10 | XMS_ITS | Encounter Summary ---
Author Organization [facility] Address [address] [place] [address] Care Team Providers Care Asbestos Shingle Inspector Name Role Phone Pantera Bolivar MD Primary Care Provider [phone] Encounter Details Date Type Department Care Team (Late st Contact Info) Description 05/07/2025 Orders Only [facility] Oncology and Hematology - [place] [address] [facility] [address] [place] [address] Mikael Gomes MD [address] [facility] [address] [place] [address] Benign hypertension Social History Tobacco Use Types Packs/Day Years Used Date Smoking Tobacco: Former Cigarettes 2 10 Q uit: 02/16/1989 Alcohol Use Standard Drinks/Week Comments Yes 0 (1 standard drink = 0.6 oz pur e alcohol) occasionally Sex and Gender Information Value Date Recorded Sex Assigned at Not on file Legal Sex Male 3:22 AM 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
--- OUTSIDE RECORDS SUMMARY | 2025-05-07 14:10 | XMS_ITS | Clinical Summary ---
Author Organization [facility] Address [address] [facility] [place] [address] Care Team Providers Care Cook Vacuum Kettle Name Role Phone No, Pcp PROCUREMENT REPRESENTATIVE Primary Care Provider Unavailabl e Social History Tobacco Use Types Packs/Day Years Used Date Smoking Tobacco: Never Assessed Sex and Gender Information Value Date Recorded Sex Assigned at Not on file Legal Sex Male 7:26 PM EST Gender Identity Not on file Sexual Orientation Not on file Plan of Treatment Not on file Medical Devices Not on file Insurance MEDICARE Member Subscriber Plan / Payer (Ef fective 2020-Present) Name:Roscoe Pérez Member ID:[id number] Relation to Subscriber:Self Name:Pérez, Roscoe Subscriber ID:[id number] Payer ID:Not on file Group ID:Not on file Type:Not on file Address: ATTN: CLAIMS [address] [place] [address] Care Teams Cook Vacuum Kettle Relationship Specialty Start Date End Date No, Pcp, PROCUREMENT REPRESENTATIVE N/A Do not use PCP - General Family Medicine 06/08/20
--- OUTSIDE RECORDS SUMMARY | 2025-05-07 14:10 | XMS_ITS | Clinical Summary ---
Author Organization [facility] Address [address] [place] [address] Care Team Providers Care Chicken Tender Name Role Phone Pantera Bolivar MD Primary Care Provider [phone] Allergies No known active allergies Medications tadalafil [...] Encounters Date Type Department Care Team Description 05/07/[address] [facility] Oncology and Hematology - [place] [address] Mikael Gomes MD Benign hypertension 05/01/2025 External Device Data STL ABSTRACTION Provider, Abstract 05/01/2025 External Device Data STL ABSTRACTION Provider, Abstract 04/23/[address] [facility] Oncology and Hematology - [place] [address] [place] [id number] Mikael Gomes MD Benign hypertension 04/09/[address] [facility] Oncology and Hematology - [place] [address] [place] [address] Mikael Gomes MD Benign hypertension 03/26/[address] [facility] Oncology and Hematology - [place] [address] [place] [address] Mikael Gomes MD Benign hypertension 03/19/[address] [facility] Oncology and Hematology - [place] [address] [place] [address] Mikael Gomes MD Carcinoma in situ of bladder 03/12/[address] [facility] Oncology and Hematology - [place] [address] [place] [address] Mikael Gomes MD Benign hypertension 03/05/[address] [facility] Oncology and Hematology - [place] [address] [place] [address] Mikael Gomes MD Carcinoma in situ of bladder 02/26/[address] [facility] Oncology and Hematology - [place] [address] [place] [address] Mikael Gomes MD Benign hypertension 02/20/2025 External Device Data STL ABSTRACTION Provider, Abstract 02/19/[address] [facility] Oncology and Hematology - [place] [address] [place] [address] Mikael Gomes MD Carcinoma in situ of bladder 02/12/[address] [facility] Oncology and Hematology - [place] [address] [place] [address] Mikael Gomes MD Benign hypertension 02/05/[address] 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 Gender Identity Male 09/13/2024 10:33 AM CDT [...] RS (1 of 2 - PCV) 1968 ZOSTER VACCINE (2 of 3) 06/13/2012 04/18/2012 RSV VACCINE (60+ or ) (1 - 1-dose 75+ series) 2024 INFLUENZA VACCINE (#1) 2024 DIABETES HBA1C Q 6 MONTHS 06/18/20252024, 08/05/2024, 06/29/2024, Additional history exists DIABETES ANNUAL RETINAL EXAM 12/21/202511/2024, 09/11/2024, 06/16/2021, Additional history exists COLORECTAL SCREENING Discontinued 10/22/2022 Colorectal Cancer Screening Discontinued FIT-DNA Q 3 years Discontinued FIT/FOBT Q 1 year Discontinued Flex Sig/CT Colonography Q 5 years Discontinued Insurance MEDICARE PART A AND B BCBS SUPP Care Teams Chicken Tender Relationship Specialty Start Date End Date Pantera Bolivar MD [address] [place] [phone] PCP - General 05/02/15
== END 2025-05-07 12:40 | disposition home or self-care (01) ==
PROVIDERS: PCP Family Medicine; Visit Provider Orthopaedic Surgery
DX: M25.552 Pain in left hip (principal)
CPT/HCPCS: 73502